=== PATIENT | female | born 1985 | race Caucasian/White ===

== ENCOUNTER 2017-10-24 21:13 | Emergency (ER) | payer MEDICAID ==
[~2017-10-24] VITALS: Ht 160 cm; Wt 83.9 kg
[~2017-10-24 21:13] MED LIST: ONDA4TAB10 PO; PANT40TA2 PO; POTA10TA10 PO; SCOP1PAT TOP; SUCR1TAB36 PO
--- OUTSIDE RECORDS SUMMARY | 2017-10-24 21:21 | XMS REPORT | Continuity of Care Document ---
Author Author [facility] Organization [facility] Address Unknown Phone Unavailable Allergies Active Description Code Type Severity Reaction Onset Reported/Identified Relationship to Patient Clinical Status Yes No Known Drug Allergies [id number] Drug Allergy Unknown N/A 02/12/2016 Medications There is no data. Problems Date Dx Coded Attending Type Code Diagnosis Diagnosed By 02/08/2016 YOON MAHER DO Ot E87.6 HYPOKALEMIA 02/08/2016 TRAE MAHER DOI Ot F17.210 NICOTINE DEPENDENCE, CIGARETTES, UNCOMPL 02/08/2016 GUNNAR MOREAU YOON Ot R10.11 RIGHT UPPER QUADRANT PAIN 02/08/2016 MAHERTRAE PHELPS DOI Ot R11.2 NAUSEA WITH VOMITING, UNSPECIFIED 02/08/2016 MAHERMATTIE MOREAU YOON Ot E87.6 02/08/2016 MAHER DO, YOON Ot F17.210 02/08/2016 MAHERMATTIE MOREAU YOON Ot R10.11 02/08/2016 MAHERMATTIE MOREAU YOON Ot R11.2 02/09/2016 Ot F12.10 CANNABIS ABUSE, UNCOMPLICATED 02/09/2016 Ot F17.210 NICOTINE DEPENDENCE, CIGARETTES, UNCOMPL 02/09/2016 Ot R10.84 GENERALIZED ABDOMINAL PAIN 02/09/2016 Ot R11.2 NAUSEA WITH VOMITING, UNSPECIFIED 02/11/2016 Ot F12.10 02/11/2016 Ot F17.210 02/11/2016 Ot R10.84 02/11/2016 Ot R11.2 02/11/2016 CAMRYN CORONA MD Ot Z01.818 02/12/2016 CAMRYN CORONA MD Ot K21.0 GASTRO-ESOPHAGEAL REFLUX DISEASE WITH ES 02/12/2016 CAMRYN CORONA MD Ot K29.70 GASTRITIS, UNSPECIFIED, WITHOUT BLEEDING 02/12/2016 CAMRYN CORONA MD Ot K57.90 DVRTCLOS OF INTEST, PART UNSP, W/O PERF 02/12/2016 CAMRYN CORONA MD Ot K64.1 SECOND DEGREE HEMORRHOIDS 02/12/2016 CJ LAWRENCE, CAMRYN Ot Z80.0 FAMILY HISTORY OF MALIGNANT NEOPLASM OF 02/13/2016 CJ LAWRENCE, CAMRYN Ot K21.0 02/13/2016 CJ LAWRENCE, CAMRYN Ot K29.70 02/13/2016 CJ LAWRENCE, MACAAKI Ot K57.90 02/13/2016 CJ LAWRENCE, CAMRYN Ot K64.1 02/13/2016 CJ LAWRENCE, CAMRYN Ot Z80.0 02/18/2016 CJ LAWRENCE, CAMRYN Ot K21.0 02/18/2016 CJ LAWRENCE, MACAAKI Ot K29.70 02/18/2016 CJ LAWRENCE, CARENKI Ot K57.90 02/18/2016 CJ LAWRENCE, CAMRYN Ot K64.1 02/18/2016 CJ LAWRENCE, CAMRYN Ot Z80.0 02/26/2016 CJ LAWRENCE, CAMRYN Ot K21.0 GASTRO-ESOPHAGEAL REFLUX DISEASE WITH ES 02/26/2016 CJ LAWRENCE, CAMRYN Ot K29.70 GASTRITIS, UNSPECIFIED, WITHOUT BLEEDING 02/26/2016 CJ LAWRENCE, CAMRYN Ot K57.90 DVRTCLOS OF INTEST, PART UNSP, W/O PERF 02/26/2016 CAMRYN CORONA MD Ot K64.1 SECOND DEGREE HEMORRHOIDS 02/26/2016 CJ LAWRENCE, CAMRYN Ot Z80.0 FAMILY HISTORY OF MALIGNANT NEOPLASM OF Procedures There is no data. Results There is no data. Encounters ACCT No. Visit Date/Time Discharge Status Pt. Type Provider Facility Loc./Unit Complaint [id number] 02/12/2016 10:27:00 02/12/2016 15:30:00 DIS Outpatient CAMRYN CORONA MD [facility] [id number] 02/11/2016 11:17:00 02/11/2016 13:54:00 DIS Outpatient CAMRYN CORONA MD [facility] PREOP [id number] 02/09/2016 11:09:00 Document Registration [id number] 02/07/2016 16:24:00 ACT Inpatient YOON MAHER DO [facility] 4TH
[2017-10-24] MEDS ORDERED: NS IV 1000 ML 1,000 ML IV ONE (21:33)
--- NOTE | 2017-10-24 21:34 | ED GU-Female ---
General Stated Complaint: VAG PAIN W BLEEDING Source: patient History of Present Illness Time seen by provider: 21:23 Initial Comments PT ARRIVES VIA POV (WANTS WHEELCHAIR TO GO BACK TO ROOM) BUT AMBULATED INTO ER ON HER OWN WITHOUT DIFFICULTY PT HAS HAD IUD IN PLACE X 1 YEAR PT HAS HAD LIGHT SPOTTING EVERY MONTH WHILE SHE HAS HAD THE IUD--SPOTTED 09/22- 09/27, AND THIS HAS BEEN THE PATTERN EVERY MONTH PT STATES HER IUD FELL OUT ON Wednesday10/22/17 PT HAS HAD HEAVY BLEEDING YESTERDAY AND IS WORSE TODAY--STATES SHE HAS GONE THROUGH 25-30 TAMPONS TODAY--HAS TO CHANGE TAMPON EVERY 15 MINUTES C/O LOWER ABDOMINAL CRAMPING WELL TOOK HYDROCODONE AT 1830 WITHOUT RELIEF C/O SOME DIZZINESS NO HISTORY OF SIMILAR PT STATES LATER THAT SHE HAS AN APPOINTMENT ON Wednesday10/27/[address] YOUNG TO GET IMPLANON/NEXPLANON PLACED Allergies and Home Medications Allergies Coded Allergies: No Known Drug Allergies (Verified , 02/12/16) Home Medications Pantoprazole Sodium 40 Mg Tablet.dr, 40 MG PO DAILY, #90 Prescribed by: CAMRYN CORONA on 02/12/16 1432 Potassium Chloride 10 Meq Tablet.er, 10 MEQ PO BID, #30 Prescribed by: YOON MAHER on 02/08/16 0931 Sucralfate 1 Gm Tablet, 1 GM PO QID, #120 Prescribed by: CAMRYN CORONA on 02/12/16 1432 Constitutional: dizziness Respiratory: no symptoms reported Cardiovascular: no symptoms reported Gastrointestinal: see HPI, abdominal pain, No nausea, No vomiting Musculoskeletal: no symptoms reported Skin: no symptoms reported Psychiatric/Neurological: No Symptoms Reported Endocrine: No Symptoms Reported Hematologic/Lymphatic: See HPI Past Jldvlcv-Ajrtxo-Cthfto Hx Patient Social History Alcohol Use: Denies Use Recreational Drug Use: No Smoking Status: Current Everyday Smoker (1/2-1 PPD) Recent Foreign Travel: No Contact w/Someone Who Travel: No Immunizations Up To Date Tetanus Booster (TDap): Unknown PED Vaccines UTD: Yes Surgeries History of Surgeries: Yes Surgeries: Section, Gallbladder Respiratory History of Respiratory Disorde: No Cardiovascular History of Cardiac Disorders: No Neurological History of Neurological Disord: No 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 System : No Hx 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 Disorders: No 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 History of 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 Disor: No Gastrointestinal History of Gastrointestinal Di: No Musculoskeletal History of Musculoskeletal Dis: No Endocrine History of Endocrine Disorders: No HEENT History of HEENT Disorders: No Loss of Vision: Denies Hearing Impairment: Denies Cancer History of Cancer: No Psychosocial History of Psychiatric Problem: Yes Behavioral Health Disorders: Anxiety, Depression Integumentary History of Skin or Integumenta: No Blood Transfusions History of Blood Disorders: No Family Medical History Significant Family History: Heart Disease, Cancer, Diabetes Family Medial History: Arthritis 19 MOTHER GRANDMA-MATERAL Colon cancer GRANDP-MATERANL Completed stroke 19 FATHER Congenital disease 19 FATHER Congenital heart disease 19 FATHER Diabetes mellitus 19 FATHER GRANDMA-MATERAL Hypercholesterolemia Myocardial infarction 19 FATHER GRANDP-MATERANL Physical Exam Vital Signs Vital Sign - Last 12Hours 10/24/17 21:20 Temp 98.2 Pulse 87 Resp 18 B/P (MAP) 132/106 (115) Pulse Ox 100 O2 Delivery Room Air Capillary Refill : General Appearance: WD/WN, no apparent distress HEENT: No pale conjunctivae (R), No pale conjunctivae (L) Neck: normal inspection Cardiovascular: regular rate, rhythm, no murmur Respiratory: normal breath sounds Gastrointestinal: normal bowel sounds, soft, no organomegaly, no pulsatile mass , tenderness (MILD SUPRAPUBIC TENDERNESS) Pelvic: normal external exam, normal adnexa, no cerv. motion tender, no masses , vaginal bleeding (SMALL AMOUNT OF BLOOD IN CANAL WITHOUT ANY CLOTS. CERVIX APPEARS NORMAL. 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, no motor/sensory deficits, alert, normal mood/affect, oriented x 3 Skin: normal color, warm/dry Progress/Results/Core Measures Suspected Sepsis SIRS Temperature: Pulse: Respiratory Rate: Laboratory Tests 10/24/17 21:30: White Blood Count 13.4H Blood Pressure / Mean: Laboratory Tests 10/24/17 21:30: Creatinine 0.81, INR Comment 1.0, Platelet Count 339 Results/Orders Lab Results Laboratory Tests Test 10/24/17 21:30 Range/Units White Blood Count 13.4 H 4.3-11.0 10^3/uL Red Blood Count 4.52 4.35-5.85 10^6/uL Hemoglobin 13.8 11.5-16.0 G/DL Hematocrit 41 35-52 % Mean Corpuscular Volume 91 80-99 FL Mean Corpuscular Hemoglobin 31 25-34 PG Mean Corpuscular Hemoglobin Concent 33 32-36 G/DL Red Cell Distribution Width 14.1 10.0-14.5 % Platelet Count 339 130-400 10^3/uL Mean Platelet Volume 10.7 H 7.4-10.4 FL Neutrophils (%) (Auto) 59 42-75 % Lymphocytes (%) (Auto) 30 12-44 % Monocytes (%) (Auto) 8 0-12 % Eosinophils (%) (Auto) 3 0-10 % Basophils (%) (Auto) 1 0-10 % Neutrophils # (Auto) 8.0 H 1.8-7.8 X 10^3 Lymphocytes # (Auto) 4.0 1.0-4.0 X 10^3 Monocytes # (Auto) 1.0 0.0-1.0 X 10^3 Eosinophils # (Auto) 0.3 0.0-0.3 10^3/uL Basophils # (Auto) 0.1 0.0-0.1 10^3/uL Prothrombin Time 12.9 12.2-14.7 SEC INR Comment 1.0 0.8-1.4 Activated Partial Thromboplast Time 28 24-35 SEC Sodium Level 139 135-145 MMOL/L Potassium Level 3.5 L 3.6-5.0 MMOL/L Chloride Level 106 98-107 MMOL/L Carbon Dioxide Level 23 21-32 MMOL/L Anion Gap 10 5-14 MMOL/L Blood Urea Nitrogen 8 7-18 MG/DL Creatinine 0.81 0.60-1.30 MG/DL Estimat Glomerular Filtration Rate > 60 BUN/Creatinine Ratio 10 Glucose Level 102 70-105 MG/DL Calcium Level 9.1 8.5-10.1 MG/DL Serum Test, Qualitative NEGATIVE NEGATIVE My Orders Orders - CAROL PLASENCIA K DO Saline Lock/Iv-Start (10/24/17 21:29) Basic Metabolic Panel (10/24/17 21:29) Cbc With Automated Diff (10/24/17 21:29) Hcg,Qualitative Serum (10/24/17 21:29) Protime With Inr (10/24/17 21:29) Partial Thromboplastin Time (10/24/17 21:29) Saline Lock/Iv-Start (10/24/17 21:33) Ns Iv 1000 Ml (Sodium Chloride 0.9%) (10/24/17 21:33) Orthostatic Vital Signs (Adult (10/24/17 21:33) Ketorolac Injection (Toradol Injection) (10/24/17 22:15) Ns Iv 1000 Ml (Sodium Chloride 0.9%) (10/24/17 21:49) Ketorolac Injection (Toradol Injection) (10/24/17 22:13) Medications Given in ED Current Medications Medications Dose Ordered Sig/Marnie Route Start Time Stop Time Status Last Admin Dose Admin Ketorolac Tromethamine 30 mg ONCE ONCE IVP 10/24/17 22:15 10/24/17 22:35 DC 10/24/17 22:16 30 MG Sodium Chloride 1,000 ml @ 0 mls/hr Q0M ONCE IV 10/24/17 21:33 10/24/17 22:35 DC 10/24/17 21:53 0 MLS/HR Vital Signs/I&O Vital Sign - Last 12Hours 10/24/17 10/24/17 10/24/17 21:20 21:56 22:35 Temp 98.2 Pulse 87 91 84 92 96 Resp 18 18 B/P (MAP) 132/106 (115) 111/84 (93) 125/89 (101) 137/96 (110) Pulse Ox 100 99 O2 Delivery Room Air Room Air Capillary Refill : Progress Note : Progress Note BLEEDING AND CRAMPING HAS SLOWED DOWN ALOT, PER PT PT USED 1 TAMPON DURING ER STAY Departure Impression Impression: Primary Impression: MENORRHAGIA DUE TO REMOVAL OF IUD Disposition: 01 HOME, SELF-CARE Condition: Stable Departure-Patient Inst. Referrals: TYRA WALKER MD (PCP) Primary Care Physician Patient Instructions: Heavy Periods (DC) Add. Discharge Instructions: LOTS OF FLUIDS TAKE YOUR HOME PAIN MEDICATIONS NEEDED KEEP YOUR APPOINTMENT WITH DR. YOUNG ON WEDNESDAY, OR SOONER IF SYMPTOMS WORSEN CAROL PLASENCIA DO Oct 24, 2017 21:34
[2017-10-24 21:40] LABS: BASOPHILS # (AUTO) 0.1 10^3/uL (0.0-0.1); BASOPHILS % (AUTO) 1 % (0-10); EOSINOPHILS # (AUTO) 0.3 10^3/uL (0.0-0.3); EOSINOPHILS % (AUTO) 3 % (0-10); LYMPHOCYTES % (AUTO) 30 % (12-44); MEAN CORPUSCULAR HEMOGLOBIN 31 PG (25-34); MEAN CORPUSCULAR HGB CONC 33 G/DL (32-36); MEAN CORPUSCULAR VOLUME 91 FL (80-99); MEAN PLATELET VOLUME 10.7 FL (7.4-10.4); MONOCYTES % (AUTO) 8 % (0-12); NEUTROPHILS % (AUTO) 59 % (42-75); PLATELET COUNT 339 10^3/uL (130-400); RED BLOOD COUNT 4.52 10^6/uL (4.35-5.85); RED CELL DISTRIBUTION WIDTH 14.1 % (10.0-14.5); WHITE BLOOD COUNT 13.4 10^3/uL (4.3-11.0)
[2017-10-24] MEDS ORDERED: NS IV 1000 ML 1,000 ML ONE (21:49)
[2017-10-24 21:54] LABS: PROTHROMBIN TIME PATIENT 12.9 SEC (12.2-14.7)
[2017-10-24 21:56] VITALS: BP_SYST 111; BP_SYST 125; BP_SYST 137; BP_DIAS 84; BP_DIAS 89; BP_DIAS 96
[2017-10-24 22:04] LABS: ANION GAP 10 MMOL/L (5-14); BLOOD UREA NITROGEN 8 MG/DL (7-18); BUN/CREATININE RATIO 10; CALCIUM 9.1 MG/DL (8.5-10.1); CARBON DIOXIDE 23 MMOL/L (21-32); CHLORIDE 106 MMOL/L (98-107); CREATININE SERUM 0.81 MG/DL (0.60-1.30); GFR ESTIMATED > 60; GLUCOSE 102 MG/DL (70-105); POTASSIUM 3.5 MMOL/L (3.6-5.0); SODIUM 139 MMOL/L (135-145)
[2017-10-24] MEDS ORDERED: KETOROLAC 30 MG/ML VIAL ONE (22:13)
[2017-10-24] MEDS ORDERED: KETOROLAC 30 MG/ML VIAL IVP ONE (22:15)
[2017-10-24 22:35] VITALS: BP 137/80
== END 2017-10-24 22:35 | disposition home or self-care (01) ==
LOC: EDUNIT# 21:13 → ER 21:17
DX: N99.821 Postprocedural hemorrhage of a genitourinary system organ or structure following other procedure (principal); F41.9 Anxiety disorder, unspecified; F32.9 Major depressive disorder, single episode, unspecified; F17.210 Nicotine dependence, cigarettes, uncomplicated; Z87.59 Personal history of other complications of pregnancy, childbirth and the puerperium; Z82.49 Family history of ischemic heart disease and other diseases of the circulatory system; Z80.9 Family history of malignant neoplasm, unspecified
CPT/HCPCS: 36415; 80048; 84703; 85025; 85610; 85730

== ENCOUNTER 2018-08-14 21:07 | Emergency (ER) | payer SELFPAY ==
[~2018-08-14] VITALS: Ht 160 cm; Wt 86.2 kg
[~2018-08-14 21:07] MED LIST changes: -SCOP1PAT TOP; +SCOP1PAT11 TOP
--- OUTSIDE RECORDS SUMMARY | 2018-08-14 21:12 | XMS REPORT | Continuity of Care Document ---
Author Author [facility] Organization [facility] Address Unknown Phone Unavailable Allergies Active Description Code Type Severity Reaction Onset Reported/Identified Relationship to Patient Clinical Status Yes No Known Drug Allergies [id number] Drug Allergy Unknown N/A 02/12/2016 Medications There is no data. Problems Date Dx Coded Attending Type Code Diagnosis Diagnosed By 02/08/2016 YOON MAHER DO Ot E87.6 HYPOKALEMIA 02/08/2016 TRAE MAHER DOI Ot F17.210 NICOTINE DEPENDENCE, CIGARETTES, UNCOMPL 02/08/2016 TRAE MAHER DOI Ot R10.11 RIGHT UPPER QUADRANT PAIN 02/08/2016 TRAE MAHER DOI Ot R11.2 NAUSEA WITH VOMITING, UNSPECIFIED 02/08/2016 MAHERTRAE PHELPS DOI Ot E87.6 02/08/2016 MAHERMATTIE MOREAU YOON Ot F17.210 02/08/2016 MAHERMATTIE MOREAU YOON Ot R10.11 02/08/2016 GUNNAR MOREAU YOON Ot R11.2 02/09/2016 Ot F12.10 CANNABIS ABUSE, UNCOMPLICATED 02/09/2016 Ot F17.210 NICOTINE DEPENDENCE, CIGARETTES, UNCOMPL 02/09/2016 Ot R10.84 GENERALIZED ABDOMINAL PAIN 02/09/2016 Ot R11.2 NAUSEA WITH VOMITING, UNSPECIFIED 02/11/2016 Ot F12.10 02/11/2016 Ot F17.210 02/11/2016 Ot R10.84 02/11/2016 Ot R11.2 02/11/2016 CAMRYN CORONA MD Ot Z01.818 ENCOUNTER FOR OTHER PREPROCEDURAL EXAMIN 02/12/2016 CAMRYN CORONA MD Ot K21.0 GASTRO-ESOPHAGEAL REFLUX DISEASE WITH ES 02/12/2016 CAMRYN CORONA MD Ot K29.70 GASTRITIS, UNSPECIFIED, WITHOUT BLEEDING 02/12/2016 CAMRYN CORONA MD Ot K57.90 DVRTCLOS OF INTEST, PART UNSP, W/O PERF 02/12/2016 CJ LAWRENCE, CAMRYN Ot K64.1 SECOND DEGREE HEMORRHOIDS 02/12/2016 CJ LAWRENCE, CAMRYN Schulz Z80.0 FAMILY HISTORY OF MALIGNANT NEOPLASM OF 02/13/2016 CJ LAWRENCE, CAMRYN Ot K21.0 02/13/2016 CJ LAWRENCE, CAMRYN Ot K29.70 02/13/2016 CJ LAWRENCE, CAMRYN Ot K57.90 02/13/2016 CJ LAWRENCE, CAMRYN Ot K64.1 02/13/2016 CJ LAWRENCE, CAMRYN Ot Z80.0 02/18/2016 CJ LAWRENCE, CAMRYN Ot K21.0 02/18/2016 CJ LAWRENCE, CAMRYN Ot K29.70 02/18/2016 CJ LAWRENCE, CAMRYN Ot K57.90 02/18/2016 CJ LAWRENCE, CAMRYN Ot K64.1 02/18/2016 CJ LAWRENCE, CAMRNY Ot Z80.0 02/26/2016 CJ LAWRENCE, CAMRYN Ot K21.0 GASTRO-ESOPHAGEAL REFLUX DISEASE WITH ES 02/26/2016 CJ LAWERNCE, CAMRYN Ot K29.70 GASTRITIS, UNSPECIFIED, WITHOUT BLEEDING 02/26/2016 CJ LAWRENCE, CAMRYN Ot K57.90 DVRTCLOS OF INTEST, PART UNSP, W/O PERF 02/26/2016 CJ LAWRENCE, CAMRYN Schulz K64.1 SECOND DEGREE HEMORRHOIDS 02/26/2016 CJ LAWRENCE, CAMRYN Ot Z80.0 FAMILY HISTORY OF MALIGNANT NEOPLASM OF 10/24/2017 CAROL PLASENCIA DO Ot F17.210 NICOTINE DEPENDENCE, CIGARETTES, UNCOMPL 10/24/2017 CAROL PLASENCIA DO Ot F32.9 MAJOR DEPRESSIVE DISORDER, SINGLE EPISOD 10/24/2017 CAROL PLASENCIA DO, Ot F41.9 ANXIETY DISORDER, UNSPECIFIED 10/24/2017 CAROL PLASENCIA DO Ot N93.8 OTHER SPECIFIED ABNORMAL UTERINE AND VAG 10/24/2017 CAROL PLASENCIA DO Ot N99.821 POSTPROC HEMOR OF A SYS ORG FOLLOWING 10/24/2017 CAROL PLASENCIA DO, Ot Z80.9 FAMILY HISTORY OF MALIGNANT NEOPLASM, UN 10/24/2017 CAROL PLASENCIA DO, Ot Z82.49 FAMILY HX OF ISCHEM HEART DIS AND OTH DI 10/24/2017 LUIS ANGEL MOREAU CAROL Weller Ot Z87.59 PERSONAL HISTORY OF COMP OF PREG, CHLDBR 10/30/2017 LUIS ANGEL MOREAU CAROL Janee Ot F17.210 NICOTINE DEPENDENCE, CIGARETTES, UNCOMPL 10/30/2017 LUIS ANGEL MOREAU CAROL Janee Ot F32.9 MAJOR DEPRESSIVE DISORDER, SINGLE EPISOD 10/30/2017 LUIS ANGEL MOREAU CAROL Janee Ot F41.9 ANXIETY DISORDER, UNSPECIFIED 10/30/2017 LUIS ANGEL MOREAU CAROL Janee Ot N93.8 OTHER SPECIFIED ABNORMAL UTERINE AND VAG 10/30/2017 LUIS ANGEL MOREAU CAROL Janee Ot N99.821 POSTPROC HEMOR OF A SYS ORG FOLLOWING 10/30/2017 LUIS ANGEL CAROL Janee Ot Z80.9 FAMILY HISTORY OF MALIGNANT NEOPLASM, UN 10/30/2017 LUIS ANGEL MOREAU CAROL Janee Ot Z82.49 FAMILY HX OF ISCHEM HEART DIS AND OTH DI 10/30/2017 LUIS ANGEL MOREAU CAROL Janee Ot Z87.59 PERSONAL HISTORY OF COMP OF PREG, CHLDBR Procedures There is no data. Results Test Result Range Complete blood count (CBC) with automated white blood cell (WBC) differential - 10/24/17 21:30 Blood leukocytes automated count (number/volume) 13.4 10*3/uL 4.3-11.0 Blood erythrocytes automated count (number/volume) 4.52 10*6/uL 4.35-5.85 Venous blood hemoglobin measurement (mass/volume) 13.8 g/dL 11.5-16.0 Blood hematocrit (volume fraction) 41 % 35-52 Automated erythrocyte mean corpuscular volume 91 [foz_us] 80-99 Automated erythrocyte mean corpuscular hemoglobin (mass per erythrocyte) 31 pg 25-34 Automated erythrocyte mean corpuscular hemoglobin concentration measurement ( mass/volume) 33 g/dL 32-36 Automated erythrocyte distribution width ratio 14.1 % 10.0-14.5 Automated blood platelet count (count/volume) 339 10*3/uL 130-400 Automated blood platelet mean volume measurement 10.7 [foz_us] 7.4-10.4 Automated blood neutrophils/100 leukocytes 59 % 42-75 Automated blood lymphocytes/100 leukocytes 30 % 12-44 Blood monocytes/100 leukocytes 8 % 0-12 Automated blood eosinophils/100 leukocytes 3 % 0-10 Automated blood basophils/100 leukocytes 1 % 0-10 Blood neutrophils automated count (number/volume) 8.0 10*3 1.8-7.8 Blood lymphocytes automated count (number/volume) 4.0 10*3 1.0-4.0 Blood monocytes automated count (number/volume) 1.0 10*3 0.0-1.0 Automated eosinophil count 0.3 10*3/uL 0.0-0.3 Automated blood basophil count (count/volume) 0.1 10*3/uL 0.0-0.1 PT panel in platelet poor plasma by coagulation assay - 10/24/17 21:30 Prothrombin time (PT) in platelet poor plasma by coagulation assay 12.9 s 12.2-14.7 INR in platelet poor plasma or blood by coagulation assay 1.0 0.8-1.4 Activated partial thromboplastin time (aPTT) in platelet poor plasma bycoagulation assay - 10/24/17 21:30 Activated partial thromboplastin time (aPTT) in platelet poor plasma bycoagulation assay 28 s 24-35 Serum or plasma choriogonadotropin ( test) detection - 10/24/17 21:30 Serum or plasma choriogonadotropin ( test) detection NEGATIVE NEGATIVE Whole blood basic metabolic panel - 10/24/17 21:30 Serum or plasma sodium measurement (moles/volume) 139 mmol/L 135-145 Serum or plasma potassium measurement (moles/volume) 3.5 mmol/L 3.6-5.0 Serum or plasma chloride measurement (moles/volume) 106 mmol/L 98-107 Carbon dioxide 23 mmol/L 21-32 Serum or plasma anion gap determination (moles/volume) 10 mmol/L 5-14 Serum or plasma urea nitrogen measurement (mass/volume) 8 mg/dL 7-18 Serum or plasma creatinine measurement (mass/volume) 0.81 mg/dL 0.60-1.30 Serum or plasma urea nitrogen/creatinine mass ratio 10 NRG Serum or plasma creatinine measurement with calculation of estimated glomerular filtration rate > NRG Serum or plasma glucose measurement (mass/volume) 102 mg/dL 70-105 Serum or plasma calcium measurement (mass/volume) 9.1 mg/dL 8.5-10.1 Encounters ACCT No. Visit Date/Time Discharge Status Pt. Type Provider Facility Loc./Unit Complaint [id number] 10/24/2017 21:17:00 10/24/2017 22:35:00 DIS Emergency LUIS ANGELMichael MOREAU CAROL Janee [facility] ER VAG PAIN W BLEEDING [id number] 02/12/2016 10:27:00 02/12/2016 15:30:00 DIS Outpatient CAMRYN CORONA MD [facility] SDC ABD PAIN,N/V [id number] 02/11/2016 11:17:00 02/11/2016 13:54:00 DIS Outpatient CAMRYN CORONA MD [facility] PREOP ABD PAIN,N/V [id number] 08/14/2018 21:08:00 ACT Emergency ELVIRA BENITEZ MD [facility] ER CP [id number] 02/09/2016 11:09:00 Document Registration [id number] 02/07/2016 16:24:00 ACT Inpatient YOON MAHER DO [facility] 4TH HYPOLKALEMIA,NAUSEA,VOMITING,ABD PAIN
[2018-08-14] MEDS ORDERED: ASPIRIN 81 MG CHEW (CHILDREN'S ASA) PO ONE (21:45)
[2018-08-14] MEDS: NITROGLYCERIN 0.4 MG SL TABS BTL 25'S SL PRN ×2 (21:47→22:01)
[2018-08-14 21:49] LABS: BASOPHILS # (AUTO) 0.1 10^3/uL (0.0-0.1); BASOPHILS % (AUTO) 1 % (0-10); EOSINOPHILS # (AUTO) 0.3 10^3/uL (0.0-0.3); EOSINOPHILS % (AUTO) 3 % (0-10); HEMATOCRIT 42 % (35-52); HEMOGLOBIN 14.6 G/DL (11.5-16.0); LYMPHOCYTES # (AUTO) 3.3 X 10^3 (1.0-4.0); LYMPHOCYTES % (AUTO) 34 % (12-44); MEAN CORPUSCULAR HEMOGLOBIN 31 PG (25-34); MEAN CORPUSCULAR HGB CONC 35 G/DL (32-36); MEAN CORPUSCULAR VOLUME 89 FL (80-99); MEAN PLATELET VOLUME 10.4 FL (7.4-10.4); MONOCYTES # (AUTO) 0.8 X 10^3 (0.0-1.0); MONOCYTES % (AUTO) 8 % (0-12); NEUTROPHILS # (AUTO) 5.1 X 10^3 (1.8-7.8); NEUTROPHILS % (AUTO) 54 % (42-75); PLATELET COUNT 386 10^3/uL (130-400); RED BLOOD COUNT 4.73 10^6/uL (4.35-5.85); RED CELL DISTRIBUTION WIDTH 13.7 % (10.0-14.5); WHITE BLOOD COUNT 9.5 10^3/uL (4.3-11.0)
[2018-08-14 22:02] LABS: INR 0.9 (0.8-1.4); PROTHROMBIN TIME PATIENT 12.5 SEC (12.2-14.7)
[2018-08-14 22:10] LABS: ALANINE AMINOTRANSFERASE 27 U/L (0-55); ALBUMIN 4.2 GM/DL (3.2-4.5); ALKALINE PHOSPHATASE 65 U/L (40-136); BILIRUBIN,TOTAL 0.3 MG/DL (0.1-1.0); BUN/CREATININE RATIO 16; CALCIUM 9.7 MG/DL (8.5-10.1); CARBON DIOXIDE 22 MMOL/L (21-32); CHLORIDE 107 MMOL/L (98-107); CREATININE SERUM 0.77 MG/DL (0.60-1.30); GFR ESTIMATED > 60; GLUCOSE 89 MG/DL (70-105); MAGNESIUM 3.1 MG/DL (1.8-2.4); POTASSIUM 3.6 MMOL/L (3.6-5.0); SODIUM 141 MMOL/L (135-145)
[2018-08-14 22:16] LABS: MYOGLOBIN SERUM 36.5 NG/ML (10.0-92.0)
--- NOTE | 2018-08-14 22:21 | ED Chest Pain ---
General Chief Complaint: Chest Pain Stated Complaint: CP Nursing Triage Note: Pt ambulated to rm 6 w/o difficulty. Pt c/o chest pain that began while cooking supper this evening. Pt c/o shaking, dizziness, blurry vision, and pain radiating down L arm. Pt c/o tingling in L fingers. Nursing Sepsis Screen: No Definite Risk Source: patient Exam Limitations: no limitations History of Present Illness Date Seen by Provider: Aug 14, 2018 Time Seen by Provider: 21:29 Initial Comments This 32-year-old young woman presents to the emergency room with complaints of chest central chest pain radiating to her back between the shoulder blades. Pain is accompanied by tingling of the fingers on the left, shakiness, dizziness , and blurred vision, all of which have now improved. She cannot identify any exacerbating or alleviating factors. She denies cough or fever. She has had no nausea or vomiting. She does smoke but denies any alcohol or drug use. She denies as she has the next plan on implant. She has significant family history of cardiac disease with multiple family members having problems in their 40s and 50s. Symptoms started early this evening while she was making supper. Allergies and Home Medications Allergies Coded Allergies: No Known Drug Allergies (Verified , 02/12/16) Home Medications Omeprazole 20 Mg Capsule.dr, 20 MG PO BID Prescribed by: ELVIRA NICOLE on 08/15/18 0031 Pantoprazole Sodium 40 Mg Tablet.dr, 40 MG PO DAILY Prescribed by: CAMRYN CORONA on 02/12/16 1432 Potassium Chloride 10 Meq Tablet.er, 10 MEQ PO BID Prescribed by: YOON MAHER on 02/08/16 0931 Sucralfate 1 Gm Tablet, 1 GM PO QID Prescribed by: CAMRYN CORONA on 02/12/16 1432 Patient Home Medication List Home Medication List Reviewed: Yes Review of Systems Review of Systems Constitutional: no symptoms reported EENTM: No Symptoms Reported Respiratory: No Symptoms Reported Cardiovascular: See HPI Gastrointestinal: No Symptoms Reported 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: No Symptoms Reported Musculoskeletal: no symptoms reported Skin: no symptoms reported Psychiatric/Neurological: See HPI Endocrine: No Symptoms Reported Hematologic/Lymphatic: No Symptoms Reported Past Aeypzzb-Hpcavd-Ztlxjy Hx Past Med/Social Hx: Reviewed and Corrections made Patient Social History Alcohol Use: Denies Use Recreational Drug Use: No Smoking Status: Current Everyday Smoker Type Used: Cigarettes 2nd Hand Smoke Exposure: No Recent Foreign Travel: No Contact w/Someone Who Travel: No Recent Infectious Disease Expo: No Recent Hopitalizations: No Physical Abuse: No Sexual Abuse: No Immunizations Up To Date Tetanus Booster (TDap): Unknown PED Vaccines UTD: Yes Seasonal Allergies Seasonal Allergies: No Past Medical History Surgeries: Yes (Lipoma removed from abdomen) Section, Gallbladder Respiratory: No Currently Using CPAP: No Currently Using BIPAP: No Cardiac: No Neurological: No : No (Nexplanon implant) 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 Disorders: No 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: No Gastrointestinal: No Diverticulosis Musculoskeletal: No Endocrine: No HEENT: No Loss of Vision: Denies Hearing Impairment: Denies Cancer: No Psychosocial: Yes Anxiety, Depression Integumentary: No Blood Disorders: No Family Medical History Reviewed Nursing Family Hx Arthritis 19 MOTHER GRANDMA-MATERAL Colon cancer GRANDP-MATERANL Completed stroke 19 FATHER Congenital disease 19 FATHER Congenital heart disease 19 FATHER Diabetes mellitus 19 FATHER GRANDMA-MATERAL Hypercholesterolemia Myocardial infarction 19 FATHER GRANDP-MATERANL Heart Disease, Cancer, Diabetes Physical Exam Vital Signs Vital Signs - First Documented 08/14/18 21:16 Temp 99.0 Pulse 91 Resp 17 B/P (MAP) 128/84 (99) Pulse Ox 97 O2 Delivery Room Air Capillary Refill : Less Than 3 Seconds Height, Weight, BMI Height: 5'3.00" Weight: 190lbs. 6.4oz. 86.053526il; 30.2 BMI Method:Stated General Appearance: WD/WN, Mild Distress HEENT: PERRL/EOMI, Normal ENT Inspection, Pharynx Normal Neck: Normal Inspection Respiratory: Lungs Clear, Normal Breath Sounds, No Accessory Muscle Use, No Respiratory Distress Cardiovascular: Regular Rate, Rhythm, No Edema, No Murmur, Normal Peripheral Pulses Gastrointestinal: Non Tender, Soft Extremity: Normal Capillary Refill, Normal Inspection, Non Tender, No Calf Tenderness, No Pedal Edema, Other (Negative Teodora) Neurologic/Psychiatric: Alert, Oriented x3, No Motor/Sensory Deficits, Normal Mood/Affect, painter II-XII Norm as Tested Skin: Normal Color, Warm/Dry Progress/Results/Core Measures Results/Orders Lab Results Laboratory Tests Test 08/14/18 21:40 Range/Units White Blood Count 9.5 4.3-11.0 10^3/uL Red Blood Count 4.73 4.35-5.85 10^6/uL Hemoglobin 14.6 11.5-16.0 G/DL Hematocrit 42 35-52 % Mean Corpuscular Volume 89 80-99 FL Mean Corpuscular Hemoglobin 31 25-34 PG Mean Corpuscular Hemoglobin Concent 35 32-36 G/DL Red Cell Distribution Width 13.7 10.0-14.5 % Platelet Count 386 130-400 10^3/uL Mean Platelet Volume 10.4 7.4-10.4 FL Neutrophils (%) (Auto) 54 42-75 % Lymphocytes (%) (Auto) 34 12-44 % Monocytes (%) (Auto) 8 0-12 % Eosinophils (%) (Auto) 3 0-10 % Basophils (%) (Auto) 1 0-10 % Neutrophils # (Auto) 5.1 1.8-7.8 X 10^3 Lymphocytes # (Auto) 3.3 1.0-4.0 X 10^3 Monocytes # (Auto) 0.8 0.0-1.0 X 10^3 Eosinophils # (Auto) 0.3 0.0-0.3 10^3/uL Basophils # (Auto) 0.1 0.0-0.1 10^3/uL Prothrombin Time 12.5 12.2-14.7 SEC INR Comment 0.9 0.8-1.4 Activated Partial Thromboplast Time 29 24-35 SEC D-Dimer 0.46 0.00-0.49 UG/ML Sodium Level 141 135-145 MMOL/L Potassium Level 3.6 3.6-5.0 MMOL/L Chloride Level 107 98-107 MMOL/L Carbon Dioxide Level 22 21-32 MMOL/L Anion Gap 12 5-14 MMOL/L Blood Urea Nitrogen 12 7-18 MG/DL Creatinine 0.77 0.60-1.30 MG/DL Estimat Glomerular Filtration Rate > 60 BUN/Creatinine Ratio 16 Glucose Level 89 70-105 MG/DL Calcium Level 9.7 8.5-10.1 MG/DL Corrected Calcium 9.5 8.5-10.1 MG/DL Magnesium Level 3.1 H 1.8-2.4 MG/DL Total Bilirubin 0.3 0.1-1.0 MG/DL Aspartate Amino Transf (AST/SGOT) 16 5-34 U/L Alanine Aminotransferase (ALT/SGPT) 27 0-55 U/L Alkaline Phosphatase 65 40-136 U/L Myoglobin 36.5 10.0-92.0 NG/ML Troponin I < 0.30 <0.30 NG/ML Total Protein 8.0 6.4-8.2 GM/DL Albumin 4.2 3.2-4.5 GM/DL Serum Test, Qualitative NEGATIVE NEGATIVE Micro Results Microbiology 08/14/18 Influenza Types A,B Antigen (NIKIA) - Final, Complete My Orders Orders - ELVIRA BENITEZ MD Cbc With Automated Diff (08/14/18 21:36) Magnesium (08/14/18 21:36) Ekg Tracing (08/14/18 21:36) Cardiac Profile 1 (08/14/18 21:36) Comprehensive Metabolic Panel (08/14/18 21:36) Myoglobin Serum (08/14/18 21:36) Protime With Inr (08/14/18 21:36) Partial Thromboplastin Time (08/14/18 21:36) O2 (08/14/18 21:36) Monitor-Rhythm Ecg Trace Only (08/14/18 21:36) Aspirin Chewable Tablet (Baby Aspirin Ch (08/14/18 21:45) Nitroglycerin 0.4 Mg Btl 25's (Nitrostat (08/14/18 21:45) Saline Lock/Iv-Start (08/14/18 21:36) Fibrin Degradation Products (08/14/18 21:36) Hcg,Qualitative Serum (08/14/18 21:36) Chest Pa/Lat (2 View) (08/14/18 21:36) Influenza A And B Antigens (08/14/18 22:12) Ketorolac Injection (Toradol Injection) (08/14/18 22:45) Lidocaine 2% Viscous 15 Ml (Xylocaine Vi (08/14/18 23:45) Antacid Suspension (Mylanta Suspension (08/14/18 23:45) Medications Given in ED Vital Signs/I&O 08/14/18 08/15/18 21:16 00:57 Temp 99.0 98.4 Pulse 91 73 Resp 17 18 B/P (MAP) 128/84 (99) 122/77 (92) Pulse Ox 97 100 O2 Delivery Room Air Blood Pressure Mean: 99 Progress Progress Note : Progress Note Workup was unremarkable. Pain improved somewhat with Toradol and then was completely relieved with GI cocktail. Initial ECG Impression Date: Aug 14, 2018 Initial ECG Impression Time: 21:27 Initial ECG Rate: 94 Initial ECG Rhythm: Normal Sinus Initial ECG Intervals: Normal Initial ECG Impression: Normal Comment Normal sinus rhythm with no ST elevation or depression. No abnormal intervals or axis deviation. Diagnostic Imaging Diagonstic Imaging: Xray Plain Films/CT/US/NM/MRI: chest Comments Two-view chest x-ray viewed by me. Report available. No acute abnormalities appreciated. Departure Impression Primary Impression: Atypical chest pain Disposition: HOME, SELF-CARE Condition: Improved Departure-Patient Inst. Decision time for Depature: 00:29 Referrals: TYRA WALKER MD (PCP/Family) Primary Care Physician Patient Instructions: Acid Reflux (Gastroesophageal Reflux Disease), Adult (DC) , Chest Pain (DC) Add. Discharge Instructions: The exact cause of your chest pain is unknown but it may be related to acid reflux. Take an antacid such as omeprazole twice daily for the next 2 weeks. Follow-up with your primary care provider soon as possible. Return to the ER if symptoms are worsening. All discharge instructions reviewed with patient and/or family. Voiced understanding. Scripts Omeprazole (Omeprazole) 20 Mg Capsule. 20 MG PO BID, #30 CAP Prov: ELVIRA BENITEZ MD 08/15/18 Copy Copies To 1: TYRA WALKER MD, JOSHUA T MD Aug 14, 2018 22:21
[2018-08-14] MEDS ORDERED: KETOROLAC 30 MG/ML VIAL IVP ONE (22:45)
[2018-08-14] MEDS ORDERED: LIDOCAINE 2% VISCOUS 15 ML UDC PO ONE (23:45)
[2018-08-14] MEDS ORDERED: ANTACID SUSP 30 ML UDC (MYLANTA) PO ONE (23:45)
[2018-08-15] MEDS ORDERED: OMEP20CA12 PO (00:31)
[2018-08-15 00:57] VITALS: BP 122/77
--- NOTE | 2018-08-15 06:31 | Diagnostic Imaging Report ---
INDICATION: Chest pain. TECHNIQUE: Two views of the chest COMPARISON: None. FINDINGS: The lung volumes are normal. No focal consolidation is seen. No large pleural effusion or pneumothorax is seen. The cardiomediastinal silhouette is normal in size and contour. No acute osseous abnormality is seen. IMPRESSION: No acute pulmonary abnormality seen. Dictated by: Dictated on workstation # [id number]
== END 2018-08-15 00:57 | disposition home or self-care (01) ==
LOC: EDUNIT# 21:07 → ER 21:08
DX: R07.81 Pleurodynia (principal); F41.9 Anxiety disorder, unspecified; F32.9 Major depressive disorder, single episode, unspecified; F17.210 Nicotine dependence, cigarettes, uncomplicated; Z98.890 Other specified postprocedural states; Z87.19 Personal history of other diseases of the digestive system; Z80.0 Family history of malignant neoplasm of digestive organs; Z82.49 Family history of ischemic heart disease and other diseases of the circulatory system
CPT/HCPCS: 36415; 71046; 80053; 83735; 83874; 84484; 84703; 85025; 85379; 85610; 85730; 87804; 93005; 93041

== ENCOUNTER 2018-12-18 19:31 | Emergency (ER) | payer SELFPAY ==
[~2018-12-18] VITALS: Ht 160 cm; Wt 86.2 kg
[~2018-12-18 19:31] MED LIST changes: +OMEP20CA12 PO
--- OUTSIDE RECORDS SUMMARY | 2018-12-18 19:35 | XMS REPORT | Continuity of Care Document ---
Author Author [facility] Organization [facility] Address Unknown Phone Unavailable Allergies Active Description Code Type Severity Reaction Onset Reported/Identified Relationship to Patient Clinical Status Yes No Known Drug Allergies [id number] Drug Allergy Unknown N/A 02/12/2016 Medications There [...] 02/08/2016 MAHER DO, YOON Ot F17.210 02/08/2016 GUNNAR MOREAU YOON Ot R10.11 02/08/2016 GUNNAR MOREAU [...] UNSP, W/O PERF 02/26/2016 CJ LAWRENCE, CAMRYN Ot K64.1 SECOND DEGREE HEMORRHOIDS 02/26/2016 CJ LAWRENCE, CAMRYN Ot Z80.0 FAMILY HISTORY OF MALIGNANT NEOPLASM OF 10/24/2017 CAROL PLASENCIA DO Ot F17.210 NICOTINE DEPENDENCE, CIGARETTES, UNCOMPL 10/24/2017 CAROL PLASENCIA DO Ot F32.9 MAJOR DEPRESSIVE DISORDER, SINGLE EPISOD 10/24/2017 CAROL PLASENCIA DO Ot F41.9 ANXIETY DISORDER, UNSPECIFIED 10/24/2017 CAROL PLASENCIA DO Ot N93.8 OTHER SPECIFIED ABNORMAL UTERINE AND VAG 10/24/2017 CAROL PLASENCIA DO Ot N99.821 POSTPROC HEMOR OF A SYS ORG FOLLOWING 10/24/2017 CAROL PLASENCIA DO Ot Z80.9 FAMILY HISTORY OF MALIGNANT NEOPLASM, UN 10/24/2017 LUIS ANGEL DO, CAROL K Ot Z82.49 FAMILY HX OF ISCHEM HEART DIS AND OTH DI 10/24/2017 LUIS ANGEL MOREAU CAROL K Ot Z87.59 PERSONAL HISTORY OF COMP OF PREG, CHLDBR 10/30/2017 LUIS ANGEL MOREAU CAROL K Ot F17.210 NICOTINE DEPENDENCE, CIGARETTES, UNCOMPL 10/30/2017 LUIS ANGEL MOREAU CAROL K Ot F32.9 MAJOR DEPRESSIVE DISORDER, SINGLE EPISOD 10/30/2017 LUIS ANGEL MOREAU CAROL K Ot F41.9 ANXIETY DISORDER, UNSPECIFIED 10/30/2017 LUIS ANGEL MOREAU CAROL K Ot N93.8 OTHER SPECIFIED ABNORMAL UTERINE AND VAG 10/30/2017 LUIS ANGEL MOREAU CAROL K Ot N99.821 POSTPROC HEMOR OF A SYS ORG FOLLOWING 10/30/2017 LUIS ANGEL MOREAU CAROL Weller Ot Z80.9 FAMILY HISTORY OF MALIGNANT NEOPLASM, UN 10/30/2017 LUIS ANGEL MOREAU CAROL K Ot Z82.49 FAMILY HX OF ISCHEM HEART DIS AND OTH DI 10/30/2017 LUIS ANGEL MOREAU CAROL Weller Ot Z87.59 PERSONAL HISTORY OF COMP OF PREG, CHLDBR 08/15/2018 ELVIRA BENITEZ MD Ot F17.210 NICOTINE DEPENDENCE, CIGARETTES, UNCOMPL 08/15/2018 ELVIRA BENITEZ MD Ot F32.9 MAJOR DEPRESSIVE DISORDER, SINGLE EPISOD 08/15/2018 ELVIRA BENITEZ MD Ot F41.9 ANXIETY DISORDER, UNSPECIFIED 08/15/2018 ELVIRA BENITEZ MD Ot R07.81 PLEURODYNIA 08/15/2018 ELVIRA BENITEZ MD Ot Z80.0 FAMILY HISTORY OF MALIGNANT NEOPLASM OF 08/15/2018 ELVIRA BENITEZ MD Ot Z82.49 FAMILY HX OF ISCHEM HEART DIS AND OTH DI 08/15/2018 ELVIRA BENITEZ MD Ot Z87.19 PERSONAL HISTORY OF OTHER DISEASES OF TH 08/15/2018 ELVIRA BENITEZ MD Ot Z98.890 OTHER SPECIFIED POSTPROCEDURAL STATES 08/16/2018 ELVIRA BENITEZ MD Ot F17.210 NICOTINE DEPENDENCE, CIGARETTES, UNCOMPL 08/16/2018 ELVIRA BENITEZ MD Ot F32.9 MAJOR DEPRESSIVE DISORDER, SINGLE EPISOD 08/16/2018 ELVIRA BENITEZ MD, Ot F41.9 ANXIETY DISORDER, UNSPECIFIED 08/16/2018 ELVIRA BENITEZ MD, Ot R07.81 PLEURODYNIA 08/16/2018 ELVIRA BENITEZ MD, Ot Z80.0 FAMILY HISTORY OF MALIGNANT NEOPLASM OF 08/16/2018 ELVIRA BENITEZ MD, Ot Z82.49 FAMILY HX OF ISCHEM HEART DIS AND OTH DI 08/16/2018 ELVIRA BENITEZ MD, Ot Z87.19 PERSONAL HISTORY OF OTHER DISEASES OF TH 08/16/2018 ELVIRA BENITEZ MD, Ot Z98.890 OTHER SPECIFIED POSTPROCEDURAL STATES Procedures There is no data. Results Test [...] plasma calcium measurement (mass/volume) 9.1 mg/dL 8.5-10.1 Complete blood count (CBC) with automated white blood cell (WBC) differential - 08/14/18 21:40 Blood leukocytes automated count (number/volume) 9.5 10*3/uL 4.3-11.0 Blood erythrocytes automated count (number/volume) 4.73 10*6/uL 4.35-5.85 Venous blood hemoglobin measurement (mass/volume) 14.6 g/dL 11.5-16.0 Blood hematocrit (volume fraction) 42 % 35-52 Automated erythrocyte mean corpuscular volume 89 [foz_us] 80-99 Automated erythrocyte mean corpuscular hemoglobin (mass per erythrocyte) 31 pg 25-34 Automated erythrocyte mean corpuscular hemoglobin concentration measurement ( mass/volume) 35 g/dL 32-36 Automated erythrocyte distribution width ratio 13.7 % 10.0-14.5 Automated blood platelet count (count/volume) 386 10*3/uL 130-400 Automated blood platelet mean volume measurement 10.4 [foz_us] 7.4-10.4 Automated blood neutrophils/100 leukocytes 54 % 42-75 Automated blood lymphocytes/100 leukocytes 34 % 12-44 Blood monocytes/100 leukocytes 8 % 0-12 Automated blood eosinophils/100 leukocytes 3 % 0-10 Automated blood basophils/100 leukocytes 1 % 0-10 Blood neutrophils automated count (number/volume) 5.1 10*3 1.8-7.8 Blood lymphocytes automated count (number/volume) 3.3 10*3 1.0-4.0 Blood monocytes automated count (number/volume) 0.8 10*3 0.0-1.0 Automated eosinophil count 0.3 10*3/uL 0.0-0.3 Automated blood basophil count (count/volume) 0.1 10*3/uL 0.0-0.1 Serum or plasma choriogonadotropin ( test) detection - 08/14/18 21:40 Serum or plasma choriogonadotropin ( test) detection NEGATIVE NEGATIVE PT panel in platelet poor plasma by coagulation assay - 08/14/18 21:40 Prothrombin time (PT) in platelet poor plasma by coagulation assay 12.5 s 12.2-14.7 INR in platelet poor plasma or blood by coagulation assay 0.9 0.8-1.4 Activated partial thromboplastin time (aPTT) in platelet poor plasma bycoagulation assay - 08/14/18 21:40 Activated partial thromboplastin time (aPTT) in platelet poor plasma bycoagulation assay 29 s 24-35 Fibrin D-dimer FEU measurement in platelet poor plasma (mass/volume) - 21:40 Fibrin D-dimer FEU measurement in platelet poor plasma (mass/volume) 0.46 ug/mL 0.00-0.49 Comprehensive metabolic panel - 08/14/18 21:40 Serum or plasma sodium measurement (moles/volume) 141 mmol/L 135-145 Serum or plasma potassium measurement (moles/volume) 3.6 mmol/L 3.6-5.0 Serum or plasma chloride measurement (moles/volume) 107 mmol/L 98-107 Carbon dioxide 22 mmol/L 21-32 Serum or plasma anion gap determination (moles/volume) 12 mmol/L 5-14 Serum or plasma urea nitrogen measurement (mass/volume) 12 mg/dL 7-18 Serum or plasma creatinine measurement (mass/volume) 0.77 mg/dL 0.60-1.30 Serum or plasma urea nitrogen/creatinine mass ratio 16 NRG Serum or plasma creatinine measurement with calculation of estimated glomerular filtration rate > NRG Serum or plasma glucose measurement (mass/volume) 89 mg/dL 70-105 Serum or plasma calcium measurement (mass/volume) 9.7 mg/dL 8.5-10.1 Serum or plasma total bilirubin measurement (mass/volume) 0.3 mg/dL 0.1-1.0 Serum or plasma alkaline phosphatase measurement (enzymatic activity/volume) 65 U/L 40-136 Serum or plasma aspartate aminotransferase measurement (enzymatic activity/ volume) 16 U/L 5-34 Serum or plasma alanine aminotransferase measurement (enzymatic activity/volume ) 27 U/L 0-55 Serum or plasma protein measurement (mass/volume) 8.0 g/dL 6.4-8.2 Serum or plasma albumin measurement (mass/volume) 4.2 g/dL 3.2-4.5 CALCIUM CORRECTED 9.5 mg/dL 8.5-10.1 Magnesium - 08/14/18 21:40 Magnesium 3.1 mg/dL 1.8-2.4 Serum or plasma troponin i.cardiac measurement (mass/volume) - 08/14/18 21:40 Serum or plasma troponin i.cardiac measurement (mass/volume) < ng/ mL <0.30 Myoglobin, serum - 08/14/18 21:40 Myoglobin, serum 36.5 ng/mL 10.0-92.0 Influenza virus A and B antigen detection - 08/14/18 22:15 FLU RESULT NEGATIVE FOR INFLUENZA A AND B ANTIGENS BY IA NRG Encounters ACCT No. Visit Date/Time Discharge Status Pt. Type Provider Facility Loc./Unit Complaint [id number] 08/14/2018 21:08:00 08/15/2018 00:57:00 DIS Emergency ELI LAWRENCE, ELVIRA Mckoy [facility] ER CP [id number] 10/24/2017 21:17:00 10/24/2017 22:35:00 DIS Emergency CAROL PLASENCIA DO [facility] ER VAG PAIN W BLEEDING [id number] 02/12/2016 10:27:00 02/12/2016 15:30:00 DIS Outpatient CAMRYN CORONA MD [facility] SDC ABD PAIN,N/V [id number] 02/11/2016 11:17:00 02/11/2016 13:54:00 DIS Outpatient CAMRYN CORONA MD [facility] PREOP ABD PAIN,N/V [id number] 12/18/2018 19:32:00 ACT Emergency CAROL PLASENCIA DO [facility] ER VOMITTING BLOOD [id number] 02/09/2016 11:09:00 Document Registration [id number] 02/07/2016 16:24:00 ACT Inpatient YOON MAHER DO [facility] 4TH HYPOLKALEMIA,NAUSEA,VOMITING,ABD PAIN
[2018-12-18 20:08] LABS: BASOPHILS # (AUTO) 0.1 10^3/uL (0.0-0.1); BASOPHILS % (AUTO) 1 % (0-10); EOSINOPHILS # (AUTO) 0.5 10^3/uL (0.0-0.3); EOSINOPHILS % (AUTO) 4 % (0-10); HEMATOCRIT 42 % (35-52); HEMOGLOBIN 14.1 G/DL (11.5-16.0); LYMPHOCYTES # (AUTO) 3.3 X 10^3 (1.0-4.0); LYMPHOCYTES % (AUTO) 26 % (12-44); MEAN CORPUSCULAR HEMOGLOBIN 30 PG (25-34); MEAN CORPUSCULAR HGB CONC 33 G/DL (32-36); MEAN CORPUSCULAR VOLUME 90 FL (80-99); MEAN PLATELET VOLUME 10.2 FL (7.4-10.4); MONOCYTES % (AUTO) 8 % (0-12); NEUTROPHILS # (AUTO) 7.6 X 10^3 (1.8-7.8); NEUTROPHILS % (AUTO) 61 % (42-75); PLATELET COUNT 343 10^3/uL (130-400); RED CELL DISTRIBUTION WIDTH 13.8 % (10.0-14.5); WHITE BLOOD COUNT 12.4 10^3/uL (4.3-11.0)
--- NOTE | 2018-12-18 20:11 | ED Abdominal Pain ---
General Chief Complaint: Abdominal/GI Problems Stated Complaint: VOMITTING BLOOD Nursing Triage Note: pt reports 3 episodes of bloody emesis starting at 1100 today. pt also reports epigastric pain and diahrrea. Sepsis Screen: No Definite Risk Source of Information: Patient Exam Limitations: No Limitations History of Present Illness Date Seen by Provider: Dec 18, 2018 Time Seen by Provider: 20:09 Initial Comments To ER per private vehicle by mother with reports of epigastric abdominal pain and vomiting. Symptoms began this morning. She's vomited 3 times throughout the day today. This morning she had a small amount of blood-streaked vomit. This evening she vomited again and noticed a rather large amount of bright red blood. She denies fevers or chills. She has a picture on her phone showing the emesis which does appear to have some bright red blood in it. She states that she was seen here several years ago for "a bacteria in my stomach". But cannot recall what it was. She has never vomited blood before. Timing/Duration: 12-24 Hours Severity/Quality: Moderate Location: Epigastric Radiation: No Radiation Activities at Onset: None Associated Symptoms: Nausea/Vomiting Allergies and Home Medications Allergies Coded Allergies: No Known Drug Allergies (Verified , 02/12/16) Home Medications Omeprazole 20 Mg Capsule.dr, 20 MG PO BID Prescribed by: ELVIRA NICOLE on 08/15/18 0031 Pantoprazole Sodium 40 Mg Tablet.dr, 40 MG PO DAILY Prescribed by: CAMRYN CORONA on 02/12/16 1432 Potassium Chloride 10 Meq Tablet.er, 10 MEQ PO BID Prescribed by: YOON MAHER on 02/08/16 0931 Sucralfate 1 Gm Tablet, 1 GM PO QID Prescribed by: CAMRYN CORONA on 02/12/16 1432 Patient Home Medication List Home Medication List Reviewed: Yes Review of Systems Review of Systems Constitutional: see HPI EENTM: No Symptoms Reported Respiratory: No Symptoms Reported Cardiovascular: No Symptoms Reported Gastrointestinal: See HPI, Abdominal Pain, Nausea, Vomiting 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: No Symptoms Reported Musculoskeletal: no symptoms reported Skin: no symptoms reported Psychiatric/Neurological: No Symptoms Reported Endocrine: No Symptoms Reported Past Paeagys-Cpryce-Mdwtfq Hx Patient Social History Alcohol Use: Denies Use Recreational Drug Use: Yes (marijuana) Smoking Status: Current Everyday Smoker Type Used: Cigarettes 2nd Hand Smoke Exposure: No Recent Foreign Travel: No Contact w/Someone Who Travel: No Recent Infectious Disease Expo: No Recent Hopitalizations: No Physical Abuse: No Sexual Abuse: No Mistreated: No Fear: No Immunizations Up To Date Tetanus Booster (TDap): Unknown PED Vaccines UTD: Yes Seasonal Allergies Seasonal Allergies: No Past Medical History Surgeries: Yes (Lipoma removed from abdomen) Section, Gallbladder Respiratory: No Currently Using CPAP: No Currently Using BIPAP: No Cardiac: No Neurological: No 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 Disorders: No 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 DIRECTOR BUSINESS DEVELOPMENT History: IUD 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: No Gastrointestinal: No Diverticulosis Musculoskeletal: No Endocrine: No HEENT: No Loss of Vision: Denies Hearing Impairment: Denies Cancer: No Psychosocial: Yes Anxiety, Depression Integumentary: No Blood Disorders: No Family Medical History Arthritis 19 MOTHER GRANDMA-MATERAL Colon cancer GRANDP-MATERANL Completed stroke 19 FATHER Congenital disease 19 FATHER Congenital heart disease 19 FATHER Diabetes mellitus 19 FATHER GRANDMA-MATERAL Hypercholesterolemia Myocardial infarction 19 FATHER GRANDP-MATERANL Heart Disease, Cancer, Diabetes Physical Exam Vital Signs Vital Signs - First Documented 12/18/18 19:50 Temp 98.4 Pulse 96 Resp 20 B/P (MAP) 142/89 (106) Pulse Ox 99 Capillary Refill : Less Than 3 Seconds Height/Weight/BMI Height: 5'3.00" Weight: 190lbs. 6.4oz. 86.777540ou; 30.2 BMI Method:Stated General Appearance: WD/WN, no apparent distress HEENT: PERRL/EOMI, normal ENT inspection Respiratory: normal breath sounds, no respiratory distress, no accessory muscle use Gastrointestinal: normal bowel sounds, soft, tenderness (epigastric) Extremities: normal range of motion, non-tender Neurologic/Psychiatric: alert, normal mood/affect, oriented x 3 Skin: normal color, warm/dry Progress/Results/Core Measures Results/Orders Lab Results Laboratory Tests Test 12/18/18 20:03 12/18/18 20:07 Range/Units White Blood Count 12.4 H 4.3-11.0 10^3/uL Red Blood Count 4.69 4.35-5.85 10^6/uL Hemoglobin 14.1 11.5-16.0 G/DL Hematocrit 42 35-52 % Mean Corpuscular Volume 90 80-99 FL Mean Corpuscular Hemoglobin 30 25-34 PG Mean Corpuscular Hemoglobin Concent 33 32-36 G/DL Red Cell Distribution Width 13.8 10.0-14.5 % Platelet Count 343 130-400 10^3/uL Mean Platelet Volume 10.2 7.4-10.4 FL Neutrophils (%) (Auto) 61 42-75 % Lymphocytes (%) (Auto) 26 12-44 % Monocytes (%) (Auto) 8 0-12 % Eosinophils (%) (Auto) 4 0-10 % Basophils (%) (Auto) 1 0-10 % Neutrophils # (Auto) 7.6 1.8-7.8 X 10^3 Lymphocytes # (Auto) 3.3 1.0-4.0 X 10^3 Monocytes # (Auto) 1.0 0.0-1.0 X 10^3 Eosinophils # (Auto) 0.5 H 0.0-0.3 10^3/uL Basophils # (Auto) 0.1 0.0-0.1 10^3/uL Sodium Level 138 135-145 MMOL/L Potassium Level 3.8 3.6-5.0 MMOL/L Chloride Level 107 98-107 MMOL/L Carbon Dioxide Level 21 21-32 MMOL/L Anion Gap 10 5-14 MMOL/L Blood Urea Nitrogen 5 L 7-18 MG/DL Creatinine 0.65 0.60-1.30 MG/DL Estimat Glomerular Filtration Rate > 60 BUN/Creatinine Ratio 8 Glucose Level 98 70-105 MG/DL Calcium Level 9.2 8.5-10.1 MG/DL Corrected Calcium 9.1 8.5-10.1 MG/DL Total Bilirubin 0.2 0.1-1.0 MG/DL Aspartate Amino Transf (AST/SGOT) 17 5-34 U/L Alanine Aminotransferase (ALT/SGPT) 26 0-55 U/L Alkaline Phosphatase 57 40-136 U/L Total Protein 7.2 6.4-8.2 GM/DL Albumin 4.1 3.2-4.5 GM/DL Lipase 16 8-78 U/L Serum Test, Qualitative NEGATIVE NEGATIVE Urine Color YELLOW Urine Clarity CLEAR Urine pH 7 5-9 Urine Specific [place] 1.010 L 1.016-1.022 Urine Protein NEGATIVE NEGATIVE Urine Glucose (UA) NEGATIVE NEGATIVE Urine Ketones NEGATIVE NEGATIVE Urine Nitrite NEGATIVE NEGATIVE Urine Bilirubin NEGATIVE NEGATIVE Urine Urobilinogen NORMAL NORMAL MG/DL Urine Leukocyte Esterase 1+ H NEGATIVE Urine RBC (Auto) NEGATIVE NEGATIVE Urine RBC NONE /HPF Urine WBC 2-5 /HPF Urine Squamous Epithelial Cells 25-50 H /HPF Urine Crystals NONE /LPF Urine Bacteria NONE /HPF Urine Casts NONE /LPF Urine Mucus NEGATIVE /LPF Urine Culture Indicated NO My Orders Orders - SHANELL HANLEY APRN Cbc With Automated Diff (12/18/18 20:02) Comprehensive Metabolic Panel (12/18/18 20:02) Lipase (12/18/18 20:02) Ua Culture If Indicated (12/18/18 20:02) Hcg,Qualitative Serum (12/18/18 20:02) Iv Heplock-Insert (Order) (12/18/18 20:02) Ondansetron Injection (Zofran Injectio (12/18/18 20:15) Ns Iv 1000 Ml (Sodium Chloride 0.9%) (12/18/18 20:15) Pantoprazole Injection (Protonix Injecti (12/18/18 20:15) Antacid Suspension (Mylanta Suspension (12/18/18 20:15) Lidocaine 2% Viscous 15 Ml (Xylocaine Vi (12/19/18 06:00) Helicobacter Pylori Alexa Igg (12/18/18 20:06) Ct Abdomen/Pelvis W (12/18/18 20:06) Lidocaine 2% Viscous 15 Ml (Xylocaine Vi (12/18/18 20:15) Medications Given in ED Current Medications Medications Dose Ordered Sig/Marnie Route Start Time Stop Time Status Last Admin Dose Admin Al Hydrox/Mg Hydrox/Simethicone 30 ml ONCE ONCE PO 12/18/18 20:15 12/18/18 20:16 DC 12/18/18 20:22 30 ML Ondansetron HCl 8 mg ONCE ONCE IVP 12/18/18 20:15 12/18/18 20:16 DC 12/18/18 20:09 8 MG Pantoprazole 80 mg ONCE ONCE IV 12/18/18 20:15 12/18/18 20:16 DC 12/18/18 20:21 80 MG Vital Signs/I&O 12/18/18 19:50 Temp 98.4 Pulse 96 Resp 20 B/P (MAP) 142/89 (106) Pulse Ox 99 Blood Pressure Mean: 106 Departure Communication (Admissions) Discussed the case with Dr. Maria on-call for surgery. Recommends clear liquid diet for 2-3 days, Protonix 40 mg twice a day, return for worsening and to call his office tomorrow to make an appointment for follow-up. Impression Primary Impression: Hematemesis Qualified Codes: K92.0 - Hematemesis Additional Impression: Epigastric abdominal pain Disposition: HOME, SELF-CARE Condition: Stable Departure-Patient Inst. Decision time for Depature: 21:21 Referrals: AMARIS MARIA PANKAJ K MD (PCP/Family) Primary Care Physician Patient Instructions: Peptic Ulcers (DC) Add. Discharge Instructions: 1. Based on your symptoms U most likely have gastritis/peptic ulcer. Take the aspirin use or twice daily as directed. Clear liquids only (no red substances) for the next [address] Maria's office tomorrow to make an appointment to be seen for follow-up. All discharge instructions reviewed with patient and/ or family. Voiced understanding. Scripts Pantoprazole Sodium (Protonix) 40 Mg Jessa. 40 MG PO BID, #40 TAB Prov: SHANELL HANLEY APRN 12/18/18 Work/School Note: Work Release Form Date Seen in the Emergency Department: Dec 18, 2018 Return to Work: Dec 20, 2018 Copy Copies To 1: AMARIS MARIA PETER J APRN Dec 18, 2018 20:11
[2018-12-18 20:15] LABS: BILIRUBIN,URINE NEGATIVE (NEGATIVE); CLARITY,URINE CLEAR; COLOR,URINE YELLOW; GLUCOSE, URINE (UA) NEGATIVE (NEGATIVE); KETONES,URINE NEGATIVE (NEGATIVE); LEUKOCYTE ESTERASE ,URINE 1+ (NEGATIVE); NITRITE,URINE NEGATIVE (NEGATIVE); PH,URINE 7 (5-9); PROTEIN,URINE NEGATIVE (NEGATIVE); UROBILINOGEN,URINE NORMAL (NORMAL)
[2018-12-18] MEDS ORDERED: LIDOCAINE 2% VISCOUS 15 ML UDC ONE (20:15)
[2018-12-18] MEDS ORDERED: NS IV 1000 ML 1,000 ML IV SCH (20:15)
[2018-12-18] MEDS ORDERED: PANTOPRAZOLE 40 MG (PROTONIX) VIAL IV ONE (20:15)
[2018-12-18] MEDS ORDERED: ANTACID SUSP 30 ML UDC (MYLANTA) PO ONE (20:15)
[2018-12-18] MEDS ORDERED: ONDANSETRON 4 MG/2 ML (SDV) Z0FRAN IVP ONE (20:15)
[2018-12-18 20:26] LABS: TOTAL PROTEIN 7.2 GM/DL (6.4-8.2)
[2018-12-18 20:26] LABS: SQUAMOUS EPITHELIAL CELL,UR 25-50 /HPF
[2018-12-18 20:27] LABS: ALANINE AMINOTRANSFERASE 26 U/L (0-55); ALBUMIN 4.1 GM/DL (3.2-4.5); ALKALINE PHOSPHATASE 57 U/L (40-136); BILIRUBIN,TOTAL 0.2 MG/DL (0.1-1.0); BUN/CREATININE RATIO 8; CALCIUM 9.2 MG/DL (8.5-10.1); CARBON DIOXIDE 21 MMOL/L (21-32); CHLORIDE 107 MMOL/L (98-107); CREATININE SERUM 0.65 MG/DL (0.60-1.30); GFR ESTIMATED > 60; GLUCOSE 98 MG/DL (70-105); LIPASE 16 U/L (8-78); POTASSIUM 3.8 MMOL/L (3.6-5.0); SODIUM 138 MMOL/L (135-145)
--- NOTE | 2018-12-18 21:14 | Diagnostic Imaging Report ---
PROCEDURE: CT abdomen and pelvis with contrast. TECHNIQUE: Multiple contiguous axial images were obtained through the abdomen and pelvis after administration of intravenous contrast. DATE: December 18, 2018. COMPARISON: CT abdomen and pelvis, February 07, 2016. INDICATION: 33-year-old female, bloody emesis, epigastric pain, diarrhea. FINDINGS: There is minimal dependent atelectasis in the lung bases. The heart is not enlarged. There is no pericardial effusion. The liver is normal in size and contour. There is no identified liver lesion. The patient is status post cholecystectomy. There is no intrahepatic or extrahepatic bile duct dilation. The main pancreatic duct is not abnormally dilated. Unremarkable appearance of the pancreatic parenchyma. The spleen is not enlarged. There is a small accessory splenule on axial image 19. The adrenal glands are unremarkable. Unremarkable appearance of the renal parenchyma. The urinary collecting systems are not distended. The urinary bladder is unremarkable in appearance. There are round low attenuation lesions in the right and left ovaries likely relating to ovarian follicles or cysts. These measure up to maximally 2.0 cm in size. There is no sizable volume free pelvic fluid. There is diverticulosis without evidence of acute diverticulitis. The appendix is well seen on axial image 59 and adjacent sequential images. The appendix is unremarkable. There is no free intraperitoneal air. There is no drainable fluid collection. There is a very small fat-containing umbilical hernia. There is no identified abnormally enlarged lymph node in the abdomen or pelvis which meets CT size criteria for adenopathy. There is no identified acute bony abnormality. IMPRESSION: CT abdomen and pelvis: 1. Bilateral ovarian follicles or cysts, measuring up to 2 cm in size. 2. No identified acute abnormality in the abdomen or pelvis. Dictated by: Dictated on workstation # [id number]
[2018-12-18] MEDS ORDERED: PANT40SU PO (21:23)
[2018-12-18 21:35] VITALS: BP 104/55
[2018-12-19] MEDS ORDERED: LIDOCAINE 2% VISCOUS 15 ML UDC PO SCH (06:00)
== END 2018-12-18 21:38 | disposition home or self-care (01) ==
LOC: EDUNIT# 19:31 → ER 19:32
DX: K92.0 Hematemesis (principal); R10.13 Epigastric pain; F41.9 Anxiety disorder, unspecified; F32.9 Major depressive disorder, single episode, unspecified; F17.210 Nicotine dependence, cigarettes, uncomplicated; Z98.890 Other specified postprocedural states; Z97.5 Presence of (intrauterine) contraceptive device; Z87.19 Personal history of other diseases of the digestive system; Z82.49 Family history of ischemic heart disease and other diseases of the circulatory system; Z80.0 Family history of malignant neoplasm of digestive organs
CPT/HCPCS: 36415; 74177; 80053; 81000; 83690; 84703; 85025; 86677

== ENCOUNTER 2019-01-16 02:43 | Inpatient (IN) | payer SELFPAY ==
[~2019-01-16] VITALS: Ht 160 cm; Wt 86.2 kg
[~2019-01-16 02:43] MED LIST changes: +PANT40SU PO
--- OUTSIDE RECORDS SUMMARY | 2019-01-16 02:50 | XMS REPORT | Continuity of Care Document ---
Author Author [facility] Organization [facility] Address Unknown Phone Unavailable Allergies Active Description Code Type Severity Reaction Onset Reported/Identified Relationship to Patient Clinical Status Yes No Known Drug Allergies [id number] Drug Allergy Unknown N/A 02/12/2016 Medications There [...] OF MALIGNANT NEOPLASM OF 02/13/2016 CJ LAWRENCE, ACMRYN Ot K21.0 02/13/2016 CJ LAWRENCE, CAMRYN Ot [...] DEPRESSIVE DISORDER, SINGLE EPISOD 10/30/2017 LUIS ANGEL DO CAROL K Ot F41.9 ANXIETY DISORDER, UNSPECIFIED 10/30/2017 LUIS ANGEL CAROL Weller Ot N93.8 OTHER SPECIFIED ABNORMAL UTERINE AND VAG 10/30/2017 LUIS ANGEL CAROL Weller Ot N99.821 POSTPROC HEMOR OF A SYS ORG FOLLOWING 10/30/2017 LUIS ANGEL DOCAROL Ot Z80.9 FAMILY HISTORY OF MALIGNANT NEOPLASM, UN 10/30/2017 LUIS ANGEL DOCAROL Ot Z82.49 FAMILY HX OF ISCHEM HEART DIS AND OTH DI 10/30/2017 LUIS ANGEL DO CAROL Weller Ot Z87.59 PERSONAL HISTORY OF [...] Ot F17.210 NICOTINE DEPENDENCE, CIGARETTES, UNCOMPL 08/16/2018 BRUEGGEMANN MD, LEVIRA T Ot F32.9 MAJOR DEPRESSIVE DISORDER, SINGLE EPISOD 08/16/2018 ELVIRA BENITEZ MD Ot F41.9 ANXIETY DISORDER, UNSPECIFIED 08/16/2018 ELI LAWRENCE, ELVIRA Mckoy Ot R07.81 PLEURODYNIA 08/16/2018 ELVIRA BENITEZ MD Ot Z80.0 FAMILY HISTORY OF MALIGNANT NEOPLASM OF 08/16/2018 ELVIRA BENITEZ MD Ot Z82.49 FAMILY HX OF ISCHEM HEART DIS AND OTH DI 08/16/2018 ELVIRA BENITEZ MD Ot Z87.19 PERSONAL HISTORY OF OTHER DISEASES OF TH 08/16/2018 ELVIRA BENITEZ MD Ot Z98.890 OTHER SPECIFIED POSTPROCEDURAL STATES 12/20/2018 SHANELL HANLEY APRN Ot F17.210 NICOTINE DEPENDENCE, CIGARETTES, UNCOMPL 12/20/2018 SHANELL HANLEY APRN Ot F32.9 MAJOR DEPRESSIVE DISORDER, SINGLE EPISOD 12/20/2018 SHANELL HANLEY APRN Ot F41.9 ANXIETY DISORDER, UNSPECIFIED 12/20/2018 SHANELL HANLEY APRN Ot K92.0 HEMATEMESIS 12/20/2018 SHANELL HANLEY APRN Ot R10.13 EPIGASTRIC PAIN 12/20/2018 SHANELL HALNEY APRN Ot Z80.0 FAMILY HISTORY OF MALIGNANT NEOPLASM OF 12/20/2018 SHANELL HANLEY APRN Ot Z82.49 FAMILY HX OF ISCHEM HEART DIS AND OTH DI 12/20/2018 SHANELL HANLEY APRN Ot Z87.19 PERSONAL HISTORY OF OTHER DISEASES OF TH 12/20/2018 SHANELL HANLEY GEMOLOGIST Ot Z97.5 PRESENCE OF (INTRAUTERINE) CONTRACEPTIVE 12/20/2018 SHANELL HANLEY APRN Ot Z98.890 OTHER SPECIFIED POSTPROCEDURAL STATES 12/24/2018 SHANELL HANLEY APRN Ot F17.210 NICOTINE DEPENDENCE, CIGARETTES, UNCOMPL 12/24/2018 SHANELL HANLEY APRN Ot F32.9 MAJOR DEPRESSIVE DISORDER, SINGLE EPISOD 12/24/2018 SHANELL HANLEY GEMOLOGIST Ot F41.9 ANXIETY DISORDER, UNSPECIFIED 12/24/2018 SHANELL HANLEY APRN Ot K92.0 HEMATEMESIS 12/24/2018 SHANELL HANLEY APRN Ot R10.13 EPIGASTRIC PAIN 12/24/2018 SHANELL HANLEY APRN Ot Z80.0 FAMILY HISTORY OF MALIGNANT NEOPLASM OF 12/24/2018 SHANELL HANLEY APRN Ot Z82.49 FAMILY HX OF ISCHEM HEART DIS AND OTH DI 12/24/2018 SHANELL HANLEY APRN Ot Z87.19 PERSONAL HISTORY OF OTHER DISEASES OF TH 12/24/2018 SHANELL HANLEY APRN Ot Z97.5 PRESENCE OF (INTRAUTERINE) CONTRACEPTIVE 12/24/2018 SHANELL HANLEY APRN Ot Z98.890 OTHER SPECIFIED POSTPROCEDURAL STATES Procedures [...] Automated blood platelet mean volume measurement 10.[address] [[address] [facility]] 7.4-10.4 Automated blood neutrophils/100 leukocytes 54 % [...] FOR INFLUENZA A AND B ANTIGENS BY [facility] Complete blood count (CBC) with automated white blood cell (WBC) differential - 12/18/18 20:03 Blood leukocytes automated count (number/volume) 12.4 10*3/uL 4.3-11.0 Blood erythrocytes automated count (number/volume) 4.69 10*6/uL 4.35-5.85 Venous blood hemoglobin measurement (mass/volume) 14.1 g/dL 11.5-16.0 Blood hematocrit (volume fraction) 42 % 35-52 Automated erythrocyte mean corpuscular volume 90 [foz_us] 80-99 Automated erythrocyte mean corpuscular hemoglobin (mass per erythrocyte) 30 pg 25-34 Automated erythrocyte mean corpuscular hemoglobin concentration measurement ( mass/volume) 33 g/dL 32-36 Automated erythrocyte distribution width ratio 13.8 % 10.0-14.5 Automated blood platelet count (count/volume) 343 10*3/uL 130-400 Automated blood platelet mean volume measurement 10.2 [foz_us] 7.4-10.4 Automated blood neutrophils/100 leukocytes 61 % 42-75 Automated blood lymphocytes/100 leukocytes 26 % 12-44 Blood monocytes/100 leukocytes 8 % 0-12 Automated blood eosinophils/100 leukocytes 4 % 0-10 Automated blood basophils/100 leukocytes 1 % 0-10 Blood neutrophils automated count (number/volume) 7.6 10*3 1.8-7.8 Blood lymphocytes automated count (number/volume) 3.3 10*3 1.0-4.0 Blood monocytes automated count (number/volume) 1.0 10*3 0.0-1.0 Automated eosinophil count 0.5 10*3/uL 0.0-0.3 Automated blood basophil count (count/volume) 0.1 10*3/uL 0.0-0.1 Serum or plasma choriogonadotropin ( test) detection - 12/18/18 20:03 Serum or plasma choriogonadotropin ( test) detection NEGATIVE NEGATIVE Comprehensive metabolic panel - 12/18/18 20:03 Serum or plasma sodium measurement (moles/volume) 138 mmol/L 135-145 Serum or plasma potassium measurement (moles/volume) 3.8 mmol/L 3.6-5.0 Serum or plasma chloride measurement (moles/volume) 107 mmol/L 98-107 Carbon dioxide 21 mmol/L 21-32 Serum or plasma anion gap determination (moles/volume) 10 mmol/L 5-14 Serum or plasma urea nitrogen measurement (mass/volume) 5 mg/dL 7-18 Serum or plasma creatinine measurement (mass/volume) 0.65 mg/dL 0.60-1.30 Serum or plasma urea nitrogen/creatinine mass ratio 8 NRG Serum or plasma creatinine measurement with calculation of estimated glomerular filtration rate > NRG Serum or plasma glucose measurement (mass/volume) 98 mg/dL 70-105 Serum or plasma calcium measurement (mass/volume) 9.2 mg/dL 8.5-10.1 Serum or plasma total bilirubin measurement (mass/volume) 0.2 mg/dL 0.1-1.0 Serum or plasma alkaline phosphatase measurement (enzymatic activity/volume) 57 U/L 40-136 Serum or plasma aspartate aminotransferase measurement (enzymatic activity/ volume) 17 U/L 5-34 Serum or plasma alanine aminotransferase measurement (enzymatic activity/volume ) 26 U/L 0-55 Serum or plasma protein measurement (mass/volume) 7.2 g/dL 6.4-8.2 Serum or plasma albumin measurement (mass/volume) 4.1 g/dL 3.2-4.5 CALCIUM CORRECTED 9.1 mg/dL 8.5-10.1 Lipase - 12/18/18 20:03 Lipase 16 U/L 8-78 Serum Helicobacter pylori antibody assay (units/volume) - 12/18/18 20:03 Helicobacter pylori ab [units/volume] in serum 0.11 u[iU]/mL 0.00-0.79 Interpretation of Helicobacter pylori IgG antibody assay Negative Negative Complete urinalysis with reflex to culture - 12/18/18 20:07 Urine color determination YELLOW NRG Urine clarity determination CLEAR NRG Urine pH measurement by test strip 7 5-9 Specific gravity of urine by test strip 1.010 1.016- 1.022 Urine protein assay by test strip, semi-quantitative NEGATIVE NEGATIVE Urine glucose detection by automated test strip NEGATIVE NEGATIVE Erythrocytes detection in urine sediment by light microscopy NEGATIVE NEGATIVE Urine ketones detection by automated test strip NEGATIVE NEGATIVE Urine nitrite detection by test strip NEGATIVE NEGATIVE Urine total bilirubin detection by test strip NEGATIVE NEGATIVE Urine urobilinogen measurement by automated test strip (mass/volume) NORMAL NORMAL Urine leukocyte esterase detection by dipstick 1+ NEGATIVE Automated urine sediment erythrocyte count by microscopy (number/high power field) NONE NRG Automated urine sediment leukocyte count by microscopy (number/high power field ) [HPF] NRG Bacteria detection in urine sediment by light microscopy NONE NRG Squamous epithelial cells detection in urine sediment by light microscopy 25-50 NRG Crystals detection in urine sediment by light microscopy NONE NRG Casts detection in urine sediment by light microscopy NONE NRG Mucus detection in urine sediment by light microscopy NEGATIVE NRG Complete urinalysis with reflex to culture NO NRG Encounters ACCT No. Visit Date/Time Discharge Status Pt. Type Provider Facility Loc./Unit Complaint [id number] 12/18/2018 19:32:00 12/18/2018 21:38:00 DIS Outpatient SHANELL HANLEY APRN [facility] ER VOMITTING BLOOD [id number] 08/14/2018 21:08:00 08/15/2018 00:57:00 DIS Emergency ELVIRA BENITEZ MD [facility] ER CP [id number] 10/24/2017 21:17:00 10/24/2017 22:35:00 DIS Emergency CAROL PLASENCIA DO [facility] ER VAG PAIN W BLEEDING [id number] 02/12/2016 10:27:00 02/12/2016 15:30:00 DIS Outpatient CAMRYN CORONA MD [facility] SDC ABD PAIN,N/V [id number] 02/11/2016 11:17:00 02/11/2016 13:54:00 DIS Outpatient CAMRYN CORONA MD [facility] PREOP ABD PAIN,N/V [id number] 02/09/2016 11:09:00 Document Registration [id number] 02/07/2016 16:24:00 ACT Inpatient YOON MAHER DO [facility] 4TH HYPOLKALEMIA,NAUSEA,VOMITING,ABD PAIN
[2019-01-16] MEDS ORDERED: NS IV 1000 ML 1,000 ML IV STA (03:06)
[2019-01-16] MEDS ORDERED: ONDANSETRON 4 MG/2 ML (SDV) Z0FRAN IVP STA (03:06)
[2019-01-16] MEDS ORDERED: HYDROmorphone 2 MG/ML VIAL (DILAUDID) IV STA (03:06)
--- NOTE | 2019-01-16 03:11 | ED Abdominal Pain ---
General Chief Complaint: Abdominal/GI Problems Stated Complaint: LOWER ABDOMINAL PAIN History of Present Illness Date Seen by Provider: Jan 16, 2019 Time Seen by Provider: 02:59 Timing/Duration: 1 Hour Severity/Quality: Moderate, Severe Location: RLQ, LLQ, Suprapubic Radiation: No Radiation Activities at Onset: None Modifying Factors: Improves With Palpation Associated Symptoms: Nausea/Vomiting This is a 33-year-old female with a history of diverticulitis, 2 C-sections and a cholecystectomy here for lower abdominal pain that began tonight. She did have an episode of nonbilious nonbloody emesis, bowel movements have been normal today, urination has been normal today, no vaginal bleeding or discharge. No fever or chills. Allergies and Home Medications Allergies Coded Allergies: No Known Drug Allergies (Verified , 02/12/16) Home Medications Omeprazole 20 Mg Capsule.dr, 20 MG PO BID Prescribed by: ELVIRA NICOLE on 08/15/18 0031 Pantoprazole Sodium 40 Mg Tablet.dr, 40 MG PO DAILY Prescribed by: CAMRYN CORONA on 02/12/16 1432 Pantoprazole Sodium 40 Mg Granpkt.dr, 40 MG PO BID Prescribed by: SHANELL HANLEY on 12/18/18 2123 Potassium Chloride 10 Meq Tablet.er, 10 MEQ PO BID Prescribed by: YOON MAHER on 02/08/16 0931 Sucralfate 1 Gm Tablet, 1 GM PO QID Prescribed by: CAMRYN CORONA on 02/12/16 1432 Patient Home Medication List Home Medication List Reviewed: Yes Review of Systems Review of Systems Constitutional: no symptoms reported Respiratory: No Symptoms Reported, See HPI Cardiovascular: No Symptoms Reported, See HPI Gastrointestinal: See HPI 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: No Symptoms Reported, See HPI Psychiatric/Neurological: No Symptoms Reported, See HPI Endocrine: No Symptoms Reported, See HPI Hematologic/Lymphatic: No Symptoms Reported, See HPI Past Ivsubkx-Fgwcib-Iwacvr Hx Patient Social History Type Used: Cigarettes 2nd Hand Smoke Exposure: No Recent Foreign Travel: No Contact w/Someone Who Travel: No Recent Hopitalizations: No Immunizations Up To Date Tetanus Booster (TDap): Unknown PED Vaccines UTD: Yes Seasonal Allergies Seasonal Allergies: No Past Medical History Surgeries: Yes (Lipoma removed from abdomen) Section, Gallbladder Respiratory: No Currently Using CPAP: No Currently Using BIPAP: No Cardiac: No Neurological: No 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 Disorders: No 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: No Gastrointestinal: No Diverticulosis Musculoskeletal: No Endocrine: No HEENT: No Loss of Vision: Denies Hearing Impairment: Denies Cancer: No Psychosocial: Yes Anxiety, Depression Integumentary: No Blood Disorders: No Family Medical History Arthritis 19 MOTHER GRANDMA-MATERAL Colon cancer GRANDP-MATERANL Completed stroke 19 FATHER Congenital disease 19 FATHER Congenital heart disease 19 FATHER Diabetes mellitus 19 FATHER GRANDMA-MATERAL Hypercholesterolemia Myocardial infarction 19 FATHER GRANDP-MATERANL Heart Disease, Cancer, Diabetes Physical Exam Vital Signs Vital Signs - First Documented 01/16/19 03:06 Temp 98.3 Pulse 92 Resp 18 B/P (MAP) 132/85 (101) Pulse Ox 100 O2 Delivery Room Air Capillary Refill : Height/Weight/BMI Height: 5'3.00" Weight: 190lbs. 6.4oz. 86.369271lc; 30.2 BMI Method:Stated General Appearance: other HEENT: normal ENT inspection Neck: supple Respiratory: lungs clear Cardiovascular: normal peripheral pulses, regular rate, rhythm Gastrointestinal: soft, other (moderate diffuse lower abdominal tenderness with voluntary guarding) Neurologic/Psychiatric: alert, oriented x 3; No abnormal gait Skin: warm/dry Progress/Results/Core Measures Results/Orders Lab Results Laboratory Tests Test 01/16/19 03:25 01/16/19 04:20 Range/Units White Blood Count 15.0 H 4.3-11.0 10^3/uL Red Blood Count 4.52 4.35-5.85 10^6/uL Hemoglobin 13.5 11.5-16.0 G/DL Hematocrit 41 35-52 % Mean Corpuscular Volume 91 80-99 FL Mean Corpuscular Hemoglobin 30 25-34 PG Mean Corpuscular Hemoglobin Concent 33 32-36 G/DL Red Cell Distribution Width 13.3 10.0-14.5 % Platelet Count 373 130-400 10^3/uL Mean Platelet Volume 10.2 7.4-10.4 FL Sodium Level 138 135-145 MMOL/L Potassium Level 3.8 3.6-5.0 MMOL/L Chloride Level 101 98-107 MMOL/L Carbon Dioxide Level 14 L 21-32 MMOL/L Anion Gap 23 H 5-14 MMOL/L Blood Urea Nitrogen 8 7-18 MG/DL Creatinine 0.60 0.60-1.30 MG/DL Estimat Glomerular Filtration Rate > 60 BUN/Creatinine Ratio 13 Glucose Level 119 H 70-105 MG/DL Calcium Level 9.5 8.5-10.1 MG/DL Corrected Calcium 9.3 8.5-10.1 MG/DL Total Bilirubin 0.2 0.1-1.0 MG/DL Aspartate Amino Transf (AST/SGOT) 16 5-34 U/L Alanine Aminotransferase (ALT/SGPT) 21 0-55 U/L Alkaline Phosphatase 67 40-136 U/L Total Protein 7.4 6.4-8.2 GM/DL Albumin 4.2 3.2-4.5 GM/DL Lipase 31 8-78 U/L Urine Color YELLOW Urine Clarity CLEAR Urine pH 6.0 5-9 Urine Specific [place] >=1.030 1.016-1.022 Urine Protein NEGATIVE NEGATIVE Urine Glucose (UA) NEGATIVE NEGATIVE Urine Ketones NEGATIVE NEGATIVE Urine Nitrite NEGATIVE NEGATIVE Urine Bilirubin NEGATIVE NEGATIVE Urine Urobilinogen 0.2 NORMAL MG/DL Urine Leukocyte Esterase NEGATIVE NEGATIVE Urine RBC (Auto) NEGATIVE NEGATIVE Urine Test NEGATIVE NEGATIVE My Orders Orders - JESSICA ZAPATA DO Urinalysis Dipstick Only (01/16/19 03:01) Urine Culture (01/16/19 03:01) Hcg,Qualitative Urine (01/16/19 03:01) Cbc No Diff (01/16/19 03:06) Comprehensive Metabolic Panel (01/16/19 03:06) Lipase (01/16/19 03:06) Ct Abd/Pelv W (Appendicitis) (01/16/19 03:06) Hydromorphone Injection (Dilaudid Inject (01/16/19 03:06) Ns Iv 1000 Ml (Sodium Chloride 0.9%) (01/16/19 03:06) Ondansetron Injection (Zofran Injectio (01/16/19 03:06) Iohexol Injection (Omnipaque 350 Mg/Ml 1 (01/16/19 05:00) Received Contrast (Contrast Received) (01/16/19 05:00) Ns (Ivpb) (Sodium Chloride 0.9% Ivpb Bag (01/16/19 05:00) Iohexol Injection (Omnipaque 350 Mg/Ml 1 (01/16/19 05:00) Received Contrast (Contrast Received) (01/16/19 05:00) Metronidazole 500mg/100ml Ivpb (Flagyl 5 (01/16/19 05:55) Ciprofloxacin Iv 400mg/200ml (Cipro Iv S (01/16/19 06:00) Medications Given in ED Current Medications Medications Dose Ordered Sig/Marnie Route Start Time Stop Time Status Last Admin Dose Admin Iohexol 100 ml ONCE ONCE IV 01/16/19 05:00 01/16/19 05:01 DC 01/16/19 04:52 100 ML Sodium Chloride 50 ml ONCE ONCE IV 01/16/19 05:00 01/16/19 05:01 DC 01/16/19 04:52 50 ML Vital Signs/I&O 01/16/19 03:06 Temp 98.3 Pulse 92 Resp 18 B/P (MAP) 132/85 (101) Pulse Ox 100 O2 Delivery Room Air Progress Progress Note #1: Progress Note Patient has a history of diverticulitis and states that this feels similar, alternatively ovarian torsion or ruptured ovarian cyst, appendicitis, bowel obstruction are considerations. We will obtain CT of the abdomen and pelvis to rule these out. We will check a urinalysis, urine culture, hCG, basic labs. We will treat patient symptomatically and will continue to monitor. Progress Note #2: Progress Note Given possible perforation on CT I will treat patient with IV antibiotics and we 'll transfer for surgical consult. Patient is agreeable with plan. Departure Impression Primary Impression: Diverticulitis of intestine Disposition: [facility]FER [facility] Condition: Stable Transfer Time Spoke to Accepting Phy: 06:00 Transfer Progress Notes Accepted by Dr Cornejo at [facility] Method of Transfer: EMS Departure-Patient Inst. Referrals: TYRA WALKER MD (PCP/Family) Primary Care Physician JESSICA ZAPATA DO Jan 16, 2019 03:11
[2019-01-16 03:38] LABS: HEMOGLOBIN 13.5 G/DL (11.5-16.0); MEAN PLATELET VOLUME 10.2 FL (7.4-10.4); RED CELL DISTRIBUTION WIDTH 13.3 % (10.0-14.5)
[2019-01-16 04:01] LABS: ALANINE AMINOTRANSFERASE 21 U/L (0-55); ALKALINE PHOSPHATASE 67 U/L (40-136); BILIRUBIN,TOTAL 0.2 MG/DL (0.1-1.0); BUN/CREATININE RATIO 13; CALCIUM 9.5 MG/DL (8.5-10.1); CARBON DIOXIDE 14 MMOL/L (21-32); CHLORIDE 101 MMOL/L (98-107); GFR ESTIMATED > 60; GLUCOSE 119 MG/DL (70-105); POTASSIUM 3.8 MMOL/L (3.6-5.0); SODIUM 138 MMOL/L (135-145); TOTAL PROTEIN 7.4 GM/DL (6.4-8.2)
[2019-01-16 04:02] LABS: ALBUMIN 4.2 GM/DL (3.2-4.5); LIPASE 31 U/L (8-78)
[2019-01-16 04:30] VITALS: BP 104/60
[2019-01-16 04:39] LABS: HCG,QUALITATIVE URINE NEGATIVE (NEGATIVE)
[2019-01-16 04:40] LABS: BILIRUBIN,URINE NEGATIVE (NEGATIVE); CLARITY,URINE CLEAR; COLOR,URINE YELLOW; GLUCOSE, URINE (UA) NEGATIVE (NEGATIVE); KETONES,URINE NEGATIVE (NEGATIVE); LEUKOCYTE ESTERASE ,URINE NEGATIVE (NEGATIVE); NITRITE,URINE NEGATIVE (NEGATIVE); PROTEIN,URINE NEGATIVE (NEGATIVE); UROBILINOGEN,URINE 0.2 MG/DL (NORMAL)
[2019-01-16] MEDS ORDERED: RECEIVED CONTRAST 20 ML VIAL IV SCH ×2 (05:00)
[2019-01-16] MEDS ORDERED: IOHEXOL 350 MG/ML 100 ML (OMNIPAQUE 350) VIAL IV ONE ×2 (05:00)
[2019-01-16] MEDS ORDERED: NS 50 ML (IVPB) BAG IV ONE (05:00)
[2019-01-16] MEDS ORDERED: metroNIDAZOLE 500MG/100ML IVPB 100 ML IV STA (05:55)
[2019-01-16] MEDS ORDERED: CIPROFLOXACIN IV 400MG/200ML 200 ML IV ONE (06:00)
[2019-01-16 06:30] VITALS: BP 116/73
[2019-01-16] MEDS ORDERED: HYDROmorphone 2 MG/ML VIAL (DILAUDID) IV ONE (06:45)
--- NOTE | 2019-01-16 06:48 | Diagnostic Imaging Report ---
PROCEDURE: CT abdomen and pelvis with contrast, rule out appendicitis. TECHNIQUE: Multiple contiguous axial images were obtained through the abdomen and pelvis after the administration of intravenous contrast. INDICATION: Generalized abdominal pain, lower pelvic pain, appendicitis. COMPARISON: 12/18/2018 FINDINGS: Lung bases are clear. The gallbladder is surgically absent. Solid organs, vascular structures and small bowel have a normal appearance. The appendix is normal. There are a few scattered diverticula of the sigmoid colon, which appear stable compared to the previous examination. There is mild amount of free fluid in the pelvis and cul-de-sac. However, this appears to be ovarian in nature. Doubtful this represents diverticulitis. There is no abscess or free air. Distal ureters and urinary bladder are normal. Osseous structures are age-appropriate. IMPRESSION: 1. Diverticulosis of the sigmoid colon without overt diverticulitis. 2. Mild free fluid in the pelvis and cul-de-sac likely related to ovarian follicular rupture. 3. Normal appendix. Dictated by: Dictated on workstation # [id number]
--- OUTSIDE RECORDS SUMMARY | 2019-01-16 07:56 | XMS REPORT | Continuity of Care Document ---
Author Author [facility] Organization [facility] Address Unknown Phone Unavailable Allergies Active Description Code Type Severity Reaction Onset Reported/Identified Relationship to Patient Clinical Status Yes No Known Drug Allergies [id number] Drug Allergy Unknown N/A 02/12/2016 Medications There [...] NICOTINE DEPENDENCE, CIGARETTES, UNCOMPL 08/16/2018 BRUEGGEMANN MD, ELVIRA T Ot F32.9 MAJOR DEPRESSIVE DISORDER, SINGLE [...] APRN Ot R10.13 EPIGASTRIC PAIN 12/20/2018 SHANELL HANLEY APRN Ot Z80.0 FAMILY HISTORY OF MALIGNANT NEOPLASM OF 12/20/2018 SHANELL HANLEY APRN Ot Z82.49 FAMILY HX OF ISCHEM HEART DIS AND OTH DI 12/20/2018 SHANELL HANLEY APRN Ot Z87.19 PERSONAL HISTORY OF OTHER DISEASES OF TH 12/20/2018 SHANELL HANLEY ARCHITECTURE INTERN Ot Z97.5 PRESENCE OF (INTRAUTERINE) CONTRACEPTIVE 12/20/2018 SHANELL HANLEY APRN Ot Z98.890 OTHER SPECIFIED POSTPROCEDURAL STATES 12/24/2018 SHANELL HANLEY APRN Ot F17.210 NICOTINE DEPENDENCE, CIGARETTES, UNCOMPL 12/24/2018 SHANELL HANLEY APRN Ot F32.9 MAJOR DEPRESSIVE DISORDER, SINGLE EPISOD 12/24/2018 SHANELL HANELY ARCHITECTURE INTERN Ot F41.9 ANXIETY DISORDER, UNSPECIFIED 12/24/2018 SHANELL [...] volume measurement 10.[address] [[address] [facility]] 7.4-10.4 Automated blood neutrophils/100 leukocytes 54 % [...] FOR INFLUENZA A AND B ANTIGENS BY [facility] Complete blood count (CBC) with [...] Status Pt. Type Provider Facility Loc./Unit Complaint [id number] 12/18/2018 19:32:00 12/18/2018 21:38:00 DIS Outpatient SHANELL HANLEY APRN [facility] ER VOMITTING BLOOD [id number] 08/14/2018 21:08:00 08/15/2018 00:57:00 DIS Emergency ELVIRA BENITEZ MD [facility] ER CP [id number] 10/24/2017 21:17:00 10/24/2017 22:35:00 DIS Emergency CAROL PLASENCIA DO [facility] ER VAG PAIN W BLEEDING [id number] 02/12/2016 10:27:00 02/12/2016 15:30:00 DIS Outpatient CAMRYN CORONA MD [facility] SDC ABD PAIN,N/V [id number] 02/11/2016 11:17:00 02/11/2016 13:54:00 DIS Outpatient CAMRYN COORNA MD [facility] PREOP ABD PAIN,N/V [id number] 02/09/2016 11:09:00 Document Registration [id number] 02/07/2016 16:24:00 ACT Inpatient YOON MAHER DO [facility] 4TH HYPOLKALEMIA,NAUSEA,VOMITING,ABD PAIN
[2019-01-16] MEDS ORDERED: HYDROmorphone 2 MG/ML VIAL (DILAUDID) IV PRN (08:30)
[2019-01-16] MEDS ORDERED: ONDANSETRON 4 MG/2 ML (SDV) Z0FRAN IVP PRN (08:30)
--- NOTE | 2019-01-16 09:57 | NUR ---
Pt reports pain is resolved at this time.
[2019-01-16 12:40] VITALS: BP 118/69
--- NOTE | 2019-01-16 12:41 | NUR ---
Pharmacy called for med rec.
[2019-01-16] MEDS ORDERED: CATHETER FLUSH 10 ML SYR IV PRN (12:45)
[2019-01-16] MEDS ORDERED: ONDANSETRON 4 MG/2 ML (SDV) Z0FRAN IV PRN (12:45)
[2019-01-16] MEDS ORDERED: morphine INJ 4 MG/ML 1 ML (VIAL/SYRINGE) IV PRN (12:45)
[2019-01-16] MEDS: D5 1/2 NS 1000 ML IV SOLUTION 1,000 ML IV SCH (12:49)
--- NOTE | 2019-01-16 12:50 | History & Physical-Hospitalist ---
History of Present Illness HPI/Chief Complaint CC: Acute diverticulitis HPI: This is a 33-year-old white female with known history of diverticulitis years ago status post colonoscopy that she thinks was by Dr. Lora who presents to the [place] ER with left lower quadrant abdominal pain in addition to stressed over her 14-year-old son who was transferred to [facility]. She is found to have acute diverticulitis of the left lower quadrant questionable perforation with elevated white count of 15,000 in need of nothing by mouth status IV antibiotics IV fluids and supportive care. I spoke with Dr. Campbell who is gracious enough to accept the consultation. Patient is already asking if she can go downstairs and smoke of which I told her that that would not be a good idea. She declines nicotine patch. Source: patient, RN/MD Exam Limitations: no limitations Date Seen 01/16/19 Time Seen by a Provider: 12:40 Attending Physician Stephanie Cornejo DO PCP Filiberto Roblero MD Referring Physician Date of Admission Jan 16, 2019 at 07:52 Home Medications & Allergies Home Medications Reviewed patient Home Medication Reconciliation performed by pharmacy medication reconciliations systems testing laboratory technician and/or nursing. Patients Allergies have been reviewed. Allergies Allergies Coded Allergies No Known Drug Allergies (Verified02/12/16) Past Myameyk-Udveej-Qvthxl Hx Past Med/Social Hx: Reviewed Nursing Past Med/Soc Hx, Reviewed and Corrections made Patient Social History Employed/Student: employed ([employer] 5 yrs) Alcohol Use: Denies Use Recreational Drug Use: Yes Drug of Choice: marijuana Smoking Status: Current Everyday Smoker Type Used: Cigarettes 2nd Hand Smoke Exposure: No Recent Foreign Travel: No Contact w/other who traveled: No Recent Hopitalizations: No Recent Infectious Disease Expo: No Immunizations Up To Date Tetanus Booster (TDap): Unknown Pediatric: Yes Seasonal Allergies Seasonal Allergies: No Past Medical History Surgeries: Abdominal, Section Currently Using CPAP: No Currently Using BIPAP: No 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: No 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 IUD Gastrointestinal: Diverticulosis Loss of Vision: Denies Hearing Impairment: Denies Psychosocial: Anxiety, Depression History of Blood Disorders: No Adverse Reaction to Blood Powell: No Family History Arthritis 19 MOTHER GRANDMA-MATERAL Colon cancer GRANDP-MATERANL Completed stroke 19 FATHER Congenital disease 19 FATHER Congenital heart disease 19 FATHER Diabetes mellitus 19 FATHER GRANDMA-MATERAL Hypercholesterolemia Myocardial infarction 19 FATHER GRANDP-MATERANL Heart Disease, Cancer, Diabetes Review of Systems Constitutional: see HPI EENTM: no symptoms reported Respiratory: no symptoms reported Cardiovascular: no symptoms reported Gastrointestinal: abdominal pain (LLQ) 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: no symptoms reported Musculoskeletal: no symptoms reported Skin: no symptoms reported Psychiatric/Neurological: No Symptoms Reported All Other Systems Reviewed Negative Unless Noted: Yes Physical Exam Physical Exam Vital Signs Vital Signs - First Documented 01/16/19 03:06 Temp 98.3 Pulse 92 Resp 18 B/P (MAP) 132/85 (101) Pulse Ox 100 O2 Delivery Room Air Capillary Refill : Less Than 3 Seconds Height, Weight, BMI Height: 5'3.00" Weight: 190lbs. 6.4oz. 86.943511sa; 30.2 BMI Method:Stated General Appearance: WD/WN, Mild Distress, Obese Eyes: Right Eye Normal Inspection, Right Eye PERRL HEENT: PERRL/EOMI, Normal ENT Inspection, Pharynx Normal, Moist Mucous Membranes Neck: Full Range of Motion, Normal Inspection, Non Tender Respiratory: Chest Non Tender, Lungs Clear, Normal Breath Sounds, No Accessory Muscle Use, No Respiratory Distress Cardiovascular: Regular Rate, Rhythm, No Edema, No Gallop, No JVD, No Murmur, Normal Peripheral Pulses Gastrointestinal: Normal Bowel Sounds, No Organomegaly, No Pulsatile Mass, Soft , Tenderness Back: Normal Inspection, No CVA Tenderness, No Vertebral Tenderness Extremity: Normal Capillary Refill, Normal Inspection, Normal Range of Motion, Non Tender, No Calf Tenderness, No Pedal Edema Neurologic/Psychiatric: Alert, Oriented x3, No Motor/Sensory Deficits, Normal Mood/Affect Skin: Normal Color, Warm/Dry Lymphatic: No Adenopathy Results Results/Procedures Labs Laboratory Tests 01/16/19 03:25 Patient resulted labs reviewed. Assessment/Plan Admission Diagnosis Assessment: Acute diverticulitis question will perforation micro-type Smoker History of diverticulosis colonoscopy years ago Plan: IVF IV abx Dr Campbell consultation DVT Px Admission Status: Inpatient Order (span 2 midnights) Reason for Inpatient Admission: Acute diverticulitis will require 3 days of hospital stay Diagnosis/Problems Diagnosis/Problems (1) Diverticulitis of intestine Status: Acute Qualifiers: Diverticulitis site: large intestine Diverticulitis bleeding: unspecified bleeding status Diverticulitis complication: unspecified complication status Qualified Codes: K57.32 - Diverticulitis of large intestine without perforation or abscess without bleeding (2) Smoker Status: Chronic (3) Leukocytosis Status: Acute Qualifiers: Leukocytosis type: leukemoid reaction Qualified Codes: D72.823 - Leukemoid reaction (4) History of diverticulitis Status: Chronic (5) Nausea & vomiting Status: Acute Qualifiers: Vomiting Intractability: unspecified (6) Generalized abdominal pain Status: Acute YOON MAHER DO Jan 16, 2019 12:50
[2019-01-16] MEDS ORDERED: FLU QUADRIvalent (5+ YOA) 2018-2019 (AFLURIA) 0.5 ML IM ONE (13:30)
--- NOTE | 2019-01-16 14:00 | Consultation ---
History of Present Illness History of Present Illness Patient Consulted On(trudi/time) 01/16/19 13:54 Time Seen by Provider: 13:20 History of Present Illness Surgery asked to consult regarding LLQ pain and possible perforated diverticulitis. HPI per IM: This is a 33-year-old white female with known history of diverticulitis years ago status post colonoscopy that she thinks was by Dr. Lora who presents to the [place] ER with left lower quadrant abdominal pain in addition to stressed over her 14-year-old son who was transferred to [facility]. She is found to have acute diverticulitis of the left lower quadrant questionable perforation with elevated white count of 15,000 in need of nothing by mouth status IV antibiotics IV fluids and supportive care. I spoke with Dr. Phillips who is gracious enough to accept the consultation. Patient is already asking if she can go downstairs and smoke of which I told her that that would not be a good idea. She declines nicotine patch. When I spoke to pt today, she states the pain started early this morning. Sharp stabbing pain, rated as 8 out of 10 and nothing seemed to make pain better. She thought it was same pain as she had a few years back, but that time she just took ABX and did not need to go into hospital. She also thinks she has hx of H. Pylori. Allergies and Home Medications Allergies Coded Allergies: No Known Drug Allergies (Verified , 02/12/16) Home Medications Omeprazole 20 Mg Capsule.dr, 20 MG PO BID Prescribed by: ELVIRA NICOLE on 08/15/18 0031 Pantoprazole Sodium 40 Mg Tablet., 40 MG PO DAILY Prescribed by: CAMRYN LORA on 02/12/16 1432 Pantoprazole Sodium 40 Mg Granpkt., 40 MG PO BID Prescribed by: SHANELL HANLEY on 12/18/182122 Potassium Chloride 10 Meq Tablet.er, 10 MEQ PO BID Prescribed by: YOON MAHER on 02/08/16 0931 Sucralfate 1 Gm Tablet, 1 GM PO QID Prescribed by: CAMRYN LORA on 02/12/16 1432 Patient Home Medication List Home Medication List Reviewed: Yes Past Qzhieyp-Szgdcc-Ratjzk Hx Patient Social History Alcohol Use: Denies Use Recreational Drug Use: Yes Drug of Choice: marijuana Smoking Status: Current Everyday Smoker Type Used: Cigarettes 2nd Hand Smoke Exposure: No Recent Foreign Travel: No Contact w/Someone Who Travel: No Recent Infectious Disease Expo: No Recent Hopitalizations: No Immunizations Up To Date Tetanus Booster (TDap): Unknown PED Vaccines UTD: Yes Seasonal Allergies Seasonal Allergies: No Surgeries History of Surgeries: Yes Surgeries: Abdominal, Section Respiratory History of Respiratory Disorde: No Cardiovascular History of Cardiac Disorders: No Neurological History of Neurological Disord: No 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 System Hx 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 Disorders: No 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 History of 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 Disor: No Gastrointestinal History of Gastrointestinal Di: Yes Gastrointestinal Disorders: Diverticulosis Musculoskeletal History of Musculoskeletal Dis: No Endocrine History of Endocrine Disorders: No HEENT History of HEENT Disorders: No Loss of Vision: Denies Hearing Impairment: Denies Cancer History of Cancer: No Psychosocial History of Psychiatric Problem: No Behavioral Health Disorders: Anxiety, Depression Integumentary History of Skin or Integumenta: No Blood Transfusions History of Blood Disorders: No Adverse Reaction to a Blood Tr: No Family Medical History Significant Family History: Heart Disease, Cancer, Diabetes Family Medial History: Arthritis 19 MOTHER GRANDMA-MATERAL Colon cancer GRANDP-MATERANL Completed stroke 19 FATHER Congenital disease 19 FATHER Congenital heart disease 19 FATHER Diabetes mellitus 19 FATHER GRANDMA-MATERAL Hypercholesterolemia Myocardial infarction 19 FATHER GRANDP-MATERANL Review of Systems-General Constitutional: No chills, No diaphoresis EENTM: No eye pain, No mouth pain, No mouth swelling, No epistaxis Respiratory: No cough, No dyspnea on exertion, No hemoptysis Cardiovascular: No chest pain, No edema, No palpitations Gastrointestinal: LLQ; No diarrhea, No hematemesis, No jaundice; nausea, vomiting 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: No dysuria, No frequency, No hematuria Musculoskeletal: No back pain, No joint pain, No joint swelling, No muscle pain Skin: No change in color, No change in hair/nails Psychiatric/Neurological: Denies Anxiety, Denies Depressed, Denies Seizure, Denies Tremors Other pt denies any abnormal bleeding or bruising, no heat or cold intolerance Physical Exam-General Problems Physical Exam Vital Signs Vital Signs - First Documented 01/16/19 03:06 Temp 98.3 Pulse 92 Resp 18 B/P (MAP) 132/85 (101) Pulse Ox 100 O2 Delivery Room Air Capillary Refill : Less Than 3 Seconds General Appearance: WD/WN, mild distress Eyes: Bilateral Eye PERRL, Bilateral Eye EOMI HEENT: pharynx normal; No scleral icterus (R), No scleral icterus (L) Neck: non-tender, full range of motion, supple Respiratory: chest non-tender, lungs clear, normal breath sounds, no respiratory distress, no accessory muscle use Cardiovascular: regular rate, rhythm, no murmur Gastrointestinal: normal bowel sounds, soft, no organomegaly, no pulsatile mass , tenderness (LLQ and suprapubic), hernia (small UH) Back: no CVA tenderness, no vertebral tenderness Extremities: no pedal edema, no calf tenderness, normal capillary refill Neurologic/Psychiatric: employment coordinator II-XII nml as tested, no motor/sensory deficits, alert, normal mood/affect, oriented x 3 Skin: normal color, warm/dry Lymphatic: no adenopathy (neck, axilla or groin) Data Review Labs Laboratory Tests 01/16/19 03:25: White Blood Count 15.0H, Red Blood Count 4.52, Hemoglobin 13.5, Hematocrit 41, Mean Corpuscular Volume 91, Mean Corpuscular Hemoglobin 30, Mean Corpuscular Hemoglobin Concent 33, Red Cell Distribution Width 13.3, Platelet Count 373, Mean Platelet Volume 10.2, Sodium Level 138, Potassium Level 3.8, Chloride Level 101, Carbon Dioxide Level 14L, Anion Gap 23H, Blood Urea Nitrogen 8, Creatinine 0.60, Estimat Glomerular Filtration Rate > 60, BUN/Creatinine Ratio 13, Glucose Level 119H, Calcium Level 9.5, Corrected Calcium 9.3, Total Bilirubin 0.2, Aspartate Amino Transf (AST/SGOT) 16, Alanine Aminotransferase ( ALT/SGPT) 21, Alkaline Phosphatase 67, Total Protein 7.4, Albumin 4.2, Lipase 31 01/16/19 04:20: Urine Color YELLOW, Urine Clarity CLEAR, Urine pH 6.0, Urine Specific [place] >= 1.030, Urine Protein NEGATIVE, Urine Glucose (UA) NEGATIVE, Urine Ketones NEGATIVE, Urine Nitrite NEGATIVE, Urine Bilirubin NEGATIVE, Urine Urobilinogen 0.2, Urine Leukocyte Esterase NEGATIVE, Urine RBC (Auto) NEGATIVE, Urine Test NEGATIVE Assessment/Plan Assessment/Plan Assessment/Plan LLQ pain R/O Diverticulitis vs Ruptured Ovarian Cyst Diverticulosis Elevated WBC I reviewed CT from today and the 2 older CT's (last month and 2016); I agree with Radiologist and believe pt has ruptured ovarian cyst. She does have an elevated WBC, but this can be due to a ruptured cyst. There is no inflammation around Sigmoid colon, just fluid in pelvis. I would keep npo until tomorrow, recheck labs, probably can stop ABX today or tomorrow. Monitor pt; I expect her abdominal pain to improve. I told her it was ok to go down 2 times per day to smoke. I think the fact that she wants to get up and move around are good signs. She states that the colonoscopy a few years ago showed nothing else besides the diverticula. KAMRAN PHILLIPS DO Jan 16, 2019 14:00
--- NOTE | 2019-01-16 14:19 | NUR ---
PATIENT STATES SHE DOES NOT TAKE ANY MEDICATIONS, OTC OR PRESCRIPTION.
[2019-01-16] MEDS ORDERED: ACETAMINOPHEN 325 MG TABLET ONE (14:24)
[2019-01-16] MEDS: ACETAMINOPHEN 325 MG TABLET PO PRN (14:29)
[2019-01-16] MEDS: morphine INJ 4 MG/ML 1 ML (VIAL/SYRINGE) IVP PRN ×4 (15:41→23:07)
[2019-01-16] MEDS: ONDANSETRON 4 MG/2 ML (SDV) Z0FRAN IVP PRN ×2 (15:41→21:18)
[2019-01-16 16:35] VITALS: BP 121/85
[2019-01-16 19:25] VITALS: BP 113/70
[2019-01-16 23:00] VITALS: BP 103/55
[2019-01-17] MEDS: D5 1/2 NS 1000 ML IV SOLUTION 1,000 ML IV SCH ×2 (01:48→06:47)
[2019-01-17] MEDS: morphine INJ 4 MG/ML 1 ML (VIAL/SYRINGE) IVP PRN ×4 (01:48→09:59)
[2019-01-17 04:06] VITALS: BP 112/64
[2019-01-17] MEDS: ONDANSETRON 4 MG/2 ML (SDV) Z0FRAN IVP PRN (04:13)
[2019-01-17 04:23] LABS: BASOPHILS # (AUTO) 0.1 10^3/uL (0.0-0.1); BASOPHILS % (AUTO) 1 % (0-10); EOSINOPHILS # (AUTO) 0.4 10^3/uL (0.0-0.3); EOSINOPHILS % (AUTO) 5 % (0-10); HEMATOCRIT 40 % (35-52); HEMOGLOBIN 12.9 G/DL (11.5-16.0); LYMPHOCYTES # (AUTO) 2.7 X 10^3 (1.0-4.0); LYMPHOCYTES % (AUTO) 29 % (12-44); MEAN CORPUSCULAR HEMOGLOBIN 30 PG (25-34); MEAN CORPUSCULAR HGB CONC 33 G/DL (32-36); MEAN CORPUSCULAR VOLUME 92 FL (80-99); MEAN PLATELET VOLUME 10.7 FL (7.4-10.4); MONOCYTES # (AUTO) 0.6 X 10^3 (0.0-1.0); MONOCYTES % (AUTO) 6 % (0-12); NEUTROPHILS # (AUTO) 5.5 X 10^3 (1.8-7.8); NEUTROPHILS % (AUTO) 60 % (42-75); PLATELET COUNT 332 10^3/uL (130-400); RED CELL DISTRIBUTION WIDTH 13.8 % (10.0-14.5); WHITE BLOOD COUNT 9.2 10^3/uL (4.3-11.0)
[2019-01-17 04:48] LABS: ALANINE AMINOTRANSFERASE 22 U/L (0-55); ALBUMIN 3.7 GM/DL (3.2-4.5); ALKALINE PHOSPHATASE 55 U/L (40-136); BILIRUBIN,TOTAL 0.4 MG/DL (0.1-1.0); BUN/CREATININE RATIO 7; CALCIUM 8.5 MG/DL (8.5-10.1); CARBON DIOXIDE 22 MMOL/L (21-32); CHLORIDE 106 MMOL/L (98-107); CREATININE SERUM 0.67 MG/DL (0.60-1.30); GFR ESTIMATED > 60; GLUCOSE 88 MG/DL (70-105); POTASSIUM 3.8 MMOL/L (3.6-5.0); SODIUM 139 MMOL/L (135-145); TOTAL PROTEIN 6.6 GM/DL (6.4-8.2)
[2019-01-17] MEDS: ACETAMINOPHEN 325 MG TABLET PO PRN (07:36)
[2019-01-17 08:00] VITALS: BP 118/67
--- NOTE | 2019-01-17 11:20 | Discharge Summary-Hospitalist ---
Diagnosis/Chief Complaint Date of Admission Jan 16, 2019 at 07:52 Date of Discharge Discharge Date: Jan 17, 2019 Admission Diagnosis Assessment: Acute diverticulitis question will perforation micro-type Smoker History of diverticulosis colonoscopy years ago Plan: IVF IV abx Dr Campbell consultation DVT Px Discharge Diagnosis (1) Diverticulitis of intestine Status: Acute (2) Smoker Status: Chronic (3) Leukocytosis Status: Resolved (4) History of diverticulitis Status: Chronic (5) Nausea & vomiting Status: Acute (6) Generalized abdominal pain Status: Acute Discharge Summary Discharge Physical Exam Allergies: Coded Allergies: No Known Drug Allergies (Verified , 02/12/16) Vitals & I&Os Vital Signs Date Time Temp Pulse Resp B/P (MAP) Pulse Ox O2 Delivery O2 Flow Rate FiO2 01/17/19 14:00 88 18 111/58 99 Room Air 01/17/19 12:00 98.0 General Appearance: No Apparent Distress, WD/WN, Chronically ill Respiratory: Chest Non Tender, Lungs Clear, Normal Breath Sounds, No Accessory Muscle Use, No Respiratory Distress Cardiovascular: Regular Rate, Rhythm, No Edema, No Gallop, No JVD, No Murmur, Normal Peripheral Pulses Gastrointestinal: Non Tender, Soft Neurologic/Psychiatric: Alert, Oriented x3, No Motor/Sensory Deficits, Normal Mood/Affect Hospital Course Was the Problem List Reviewed?: Yes Hospital Course: Pt had a brief hospital course, she was admitted after transfer from [facility] due to left lower quadrant acute diverticulitis. Pt was empirically placed on IV antibiotics placed NPO status and supportive care and Dr. Campbell provided expertise with general surgery consultation. Pt was doing much better, having minimal pain, was able to eat a regular diet and was agreeable for discharge under Dr. Campbell's discharge instructions. Labs (last 24 hrs) Laboratory Tests 01/17/19 04:00: White Blood Count 9.2, Red Blood Count 4.31L, Hemoglobin 12.9, Hematocrit 40, Mean Corpuscular Volume 92, Mean Corpuscular Hemoglobin 30, Mean Corpuscular Hemoglobin Concent 33, Red Cell Distribution Width 13.8, Platelet Count 332, Mean Platelet Volume 10.7H, Neutrophils (%) (Auto) 60, Lymphocytes (%) (Auto) 29 , Monocytes (%) (Auto) 6, Eosinophils (%) (Auto) 5, Basophils (%) (Auto) 1, Neutrophils # (Auto) 5.5, Lymphocytes # (Auto) 2.7, Monocytes # (Auto) 0.6, Eosinophils # (Auto) 0.4H, Basophils # (Auto) 0.1, Sodium Level 139, Potassium Level 3.8, Chloride Level 106, Carbon Dioxide Level 22, Anion Gap 11, Blood Urea Nitrogen 5L, Creatinine 0.67, Estimat Glomerular Filtration Rate > 60, BUN/ Creatinine Ratio 7, Glucose Level 88, Calcium Level 8.5, Corrected Calcium 8.7, Total Bilirubin 0.4, Aspartate Amino Transf (AST/SGOT) 22, Alanine Aminotransferase (ALT/SGPT) 22, Alkaline Phosphatase 55, Total Protein 6.6, Albumin 3.7 Microbiology 01/16/19 Urine Culture - Final, Complete NO GROWTH Patient resulted labs reviewed. Pending Labs Discussion & Recommendations Discharge Planning: <30 minutes discharge planning Discharge Home Medications: Active Scripts Active No Active Prescriptions or Reported Medications Instructions to patient/family Please see electronic discharge instructions given to patient. Clinical Quality Measures DVT/VTE Risk/Contraindication: Risk Factor Score Per Nursin RFS Level Per Nursing on Admit: 3=High Problem Qualifiers (1) Diverticulitis of intestine: Diverticulitis site: large intestine Diverticulitis bleeding: unspecified bleeding status Diverticulitis complication: unspecified complication status Qualified Codes: K57.32 - Diverticulitis of large intestine without perforation or abscess without bleeding (2) Leukocytosis: Leukocytosis type: leukemoid reaction Qualified Codes: D72.823 - Leukemoid reaction (3) Nausea & vomiting: Vomiting Intractability: unspecified YOON MAHER DO Jan 17, 2019 11:20
[2019-01-17 12:00] VITALS: BP 111/58
--- NOTE | 2019-01-17 12:19 | Progress Note ---
Subjective Time Seen by a Provider: 12:06 Subjective/Events-last exam Pt seen and examined, states the pain is gone and she feels great. Ambulating without difficulty. Review of Systems General: No Chills, No Night Sweats Pulmonary: No Dyspnea, No Cough Cardiovascular: No: Chest Pain, Palpitations Gastrointestinal: No: Nausea, Vomiting, Abdominal Pain Objective Exam Vital Signs Date Time Temp Pulse Resp B/P (MAP) Pulse Ox O2 Delivery O2 Flow Rate FiO2 01/17/19 12:00 98.0 88 18 111/58 (75) 99 Room Air 01/17/19 08:00 98.8 85 18 118/67 (84) 98 Room Air 01/17/19 08:00 Room Air 01/17/19 04:06 98.0 80 20 112/64 (80) 98 Room Air 01/16/19 23:00 97.8 81 18 103/55 (71) 95 Room Air 01/16/19 20:00 Room Air 01/16/19 19:25 98.6 88 18 113/70 (84) 100 Room Air 01/16/19 16:35 97.8 82 18 121/85 (97) 99 Room Air 01/16/19 12:40 Room Air 01/16/19 12:40 98.3 90 14 118/69 98 Room Air I & O 01/17/19 07:00 Intake Total 1300 ml Output Total 1250 ml Balance 50 ml Capillary Refill : Less Than 3 Seconds General Appearance: No Apparent Distress, WD/WN, Obese HEENT: PERRL/EOMI, Moist Mucous Membranes Neck: Non Tender Respiratory: Chest Non Tender, Lungs Clear, Normal Breath Sounds, No Accessory Muscle Use, No Respiratory Distress Cardiovascular: Regular Rate, Rhythm, No Edema, No Murmur Gastrointestinal: normal bowel sounds, non tender, soft, no organomegaly, no pulsatile mass, hernia (small UH) Neurologic/Psychiatric: Alert, Oriented x3, No Motor/Sensory Deficits, Normal Mood/Affect Results Lab Laboratory Tests 01/17/19 04:00: White Blood Count 9.2, Red Blood Count 4.31L, Hemoglobin 12.9, Hematocrit 40, Mean Corpuscular Volume 92, Mean Corpuscular Hemoglobin 30, Mean Corpuscular Hemoglobin Concent 33, Red Cell Distribution Width 13.8, Platelet Count 332, Mean Platelet Volume 10.7H, Neutrophils (%) (Auto) 60, Lymphocytes (%) (Auto) 29 , Monocytes (%) (Auto) 6, Eosinophils (%) (Auto) 5, Basophils (%) (Auto) 1, Neutrophils # (Auto) 5.5, Lymphocytes # (Auto) 2.7, Monocytes # (Auto) 0.6, Eosinophils # (Auto) 0.4H, Basophils # (Auto) 0.1, Sodium Level 139, Potassium Level 3.8, Chloride Level 106, Carbon Dioxide Level 22, Anion Gap 11, Blood Urea Nitrogen 5L, Creatinine 0.67, Estimat Glomerular Filtration Rate > 60, BUN/ Creatinine Ratio 7, Glucose Level 88, Calcium Level 8.5, Corrected Calcium 8.7, Total Bilirubin 0.4, Aspartate Amino Transf (AST/SGOT) 22, Alanine Aminotransferase (ALT/SGPT) 22, Alkaline Phosphatase 55, Total Protein 6.6, Albumin 3.7 Microbiology 01/16/19 Urine Culture - Final, Complete NO GROWTH Assessment/Plan Assessment/Plan Assessment/Plan LLQ pain most likely Ruptured Ovarian Cyst Diverticulosis Plan is to increase diet and send pt home, she does not need ABX. Can f/u in my office if anything changes. Clinical Quality Measures DVT/VTE Risk/Contraindication: Risk Factor Score Per Nursin RFS Level Per Nursing on Admit: 3=High KAMRAN PHILLIPS DO Jan 17, 2019 12:19
[2019-01-17 14:00] VITALS: BP 111/58
--- NOTE | 2019-01-17 14:00 | NUR ---
DISCHARGE INSTRUCTIONS GIVEN TO PATIENT WITH TIME ALLOWED FOR QUESTIONS. IV REMOVED WITH CATHETER TIP INTACT. NO COMPLAINTS OF PAIN AT THIS TIME. PATIENT LEFT AMBULATORY ACCOMPANIED BY MOTHER AND STAFF TO PRIVATE VEHICLE.
== END 2019-01-17 14:00 | disposition home or self-care (01) | DRG 392 ==
LOC: EDUNIT# 02:43 → ER FS 02:45 → 4TH 07:52
PROVIDERS: ADMIT Family Medicine; ATTEND Family Medicine
DX: K57.32 Diverticulitis of large intestine without perforation or abscess without bleeding (principal); N83.02 Follicular cyst of left ovary; F41.9 Anxiety disorder, unspecified; F32.9 Major depressive disorder, single episode, unspecified; F17.210 Nicotine dependence, cigarettes, uncomplicated
CPT/HCPCS: 36415; 74177; 80053; 81002; 83690; 84703; 85025; 85027; 87088

== ENCOUNTER 2019-02-16 20:08 | Emergency (ER) | payer SELFPAY ==
[~2019-02-16] VITALS: Ht 160 cm; Wt 86.2 kg
--- NOTE | 2019-02-16 20:26 | NUR ---
DOCTOR MIAN IN TO SEE THE PATIENT.
--- OUTSIDE RECORDS SUMMARY | 2019-02-16 20:27 | XMS REPORT | Continuity of Care Document ---
Author Organization Unknown Address Unknown Allergies Active Description Code Type Severity Reaction Onset Reported/Identified Relationship to Patient Clinical Status Yes No Known Drug Allergies [id number] Drug Allergy Unknown N/A 02/12/2016 Medications There is no data. Problems Date Dx Coded Attending Type Code Diagnosis Diagnosed By 02/08/2016 YOON MAHER DO Ot E87.6 HYPOKALEMIA 02/08/2016 TRAE MAHER DOI Ot F17.210 NICOTINE DEPENDENCE, CIGARETTES, UNCOMPL 02/08/2016 GUNNAR MOREAU YOON Ot R10.11 RIGHT UPPER QUADRANT PAIN 02/08/2016 TRAE MAHER DOI Ot R11.2 NAUSEA WITH VOMITING, UNSPECIFIED 02/08/2016 TRAE MAHER DOI Ot E87.6 02/08/2016 MAHERMATTIE MOREAU YOON [...] PART UNSP, W/O PERF 02/12/2016 CAMRYN CORONA MD, Ot K64.1 SECOND DEGREE HEMORRHOIDS 02/12/2016 CJ [...] GASTRITIS, UNSPECIFIED, WITHOUT BLEEDING 02/26/2016 CJ LAWRENCE, CMARYN Ot K57.90 DVRTCLOS OF INTEST, PART UNSP, W/O PERF 02/26/2016 CJ LAWRENCE, CAMRYN Schulz K64.1 SECOND DEGREE HEMORRHOIDS 02/26/2016 CJ LAWRENCE, CAMRYN Ot Z80.0 FAMILY HISTORY OF MALIGNANT NEOPLASM OF 10/24/2017 CAROL PLASENCIA DO Ot F17.210 NICOTINE DEPENDENCE, CIGARETTES, UNCOMPL 10/24/2017 CAORL PLASENCIA DO Ot F32.9 MAJOR DEPRESSIVE DISORDER, [...] OTH DI 10/24/2017 LUIS ANGEL MOREAU CAROL Janee Ot Z87.59 PERSONAL HISTORY OF COMP OF PREG, CHLDBR 10/30/2017 LUIS ANGEL MOREAU CAROL K Ot F17.210 NICOTINE DEPENDENCE, CIGARETTES, UNCOMPL 10/30/2017 LUIS ANGEL MOREAU CAROL K Ot F32.9 MAJOR DEPRESSIVE DISORDER, SINGLE EPISOD 10/30/2017 LUIS ANGEL MOREAU CAROL K Ot F41.9 ANXIETY DISORDER, UNSPECIFIED 10/30/2017 LUIS ANGEL MOREAU CAROL Weller Ot N93.8 OTHER SPECIFIED ABNORMAL UTERINE AND VAG 10/30/2017 LUIS ANGEL MOREAU CAROL Weller Ot N99.821 POSTPROC HEMOR OF A SYS ORG FOLLOWING 10/30/2017 LUIS ANGEL DOSANJAYA Janee Ot Z80.9 FAMILY HISTORY OF MALIGNANT NEOPLASM, UN 10/30/2017 LIUS ANGEL DOCAROL Ot Z82.49 FAMILY HX OF [...] F32.9 MAJOR DEPRESSIVE DISORDER, SINGLE EPISOD 08/16/2018 ELI LAWRENCE, ELVIRA Mckoy Ot F41.9 ANXIETY DISORDER, UNSPECIFIED 08/16/2018 ELI LAWRENCE, ELVIRA Mckoy Ot R07.81 PLEURODYNIA 08/16/2018 ELVIRA BENITEZ MD Ot Z80.0 FAMILY HISTORY OF MALIGNANT NEOPLASM OF 08/16/2018 ELVIRA BENITEZ MD Ot Z82.49 FAMILY HX OF ISCHEM HEART DIS AND OTH DI 08/16/2018 ELI LAWRENCE, ELVIRA Mckoy Ot Z87.19 PERSONAL HISTORY OF OTHER DISEASES OF TH 08/16/2018 ELVIRA BENITEZ MD Ot Z98.890 OTHER SPECIFIED POSTPROCEDURAL STATES 12/20/2018 SHANELL HANLEY APRN Ot F17.210 NICOTINE DEPENDENCE, CIGARETTES, UNCOMPL 12/20/2018 SHANELL HANLEY APRN Ot F32.9 MAJOR DEPRESSIVE DISORDER, SINGLE EPISOD 12/20/2018 SHANELL HANLEY APRN Ot F41.9 ANXIETY DISORDER, UNSPECIFIED 12/20/2018 SHANELL HANLEY WIND TURBINE ELECTRICAL ENGINEER Ot K92.0 HEMATEMESIS 12/20/2018 SHANELL HANLEY APRN Ot R10.13 EPIGASTRIC PAIN 12/20/2018 SHANELL HANLEY APRN Ot Z80.0 FAMILY HISTORY OF MALIGNANT NEOPLASM OF 12/20/2018 SHANELL HANLEY WIND TURBINE ELECTRICAL ENGINEER Ot Z82.49 FAMILY HX OF ISCHEM HEART DIS AND OTH DI 12/20/2018 SHANELL HANLEY APRN Ot Z87.19 PERSONAL HISTORY OF OTHER DISEASES OF TH 12/20/2018 SHANELL HANLEY APRN Ot Z97.5 PRESENCE OF (INTRAUTERINE) CONTRACEPTIVE 12/20/2018 SHANELL HANLEY APRN Ot Z98.890 OTHER SPECIFIED POSTPROCEDURAL STATES 12/24/2018 SHANELL HANLEY APRN Ot F17.210 NICOTINE DEPENDENCE, CIGARETTES, UNCOMPL 12/24/2018 SHANELL HANLEY APRN Ot F32.9 MAJOR DEPRESSIVE DISORDER, SINGLE EPISOD 12/24/2018 SHANELL HANLEY APRN Ot F41.9 ANXIETY DISORDER, UNSPECIFIED 12/24/2018 SHANELL [...] APRN Ot Z98.890 OTHER SPECIFIED POSTPROCEDURAL STATES 01/17/2019 NICHOLAS CRISTOBAL DO Ot F17.210 NICOTINE DEPENDENCE, CIGARETTES, UNCOMPL 01/17/2019 NICHOLAS CRISTOBAL DO Ot F32.9 MAJOR DEPRESSIVE DISORDER, SINGLE EPISOD 01/17/2019 NICHOLAS CRISTOBAL DO Ot F41.9 ANXIETY DISORDER, UNSPECIFIED 01/17/2019 NICHOLAS CRISTOBAL DO Ot K57.32 DVTRCLI OF LG INT W/O PERFORATION OR ABS 01/17/2019 NICHOLAS CRISTOBAL DO Ot N83.02 FOLLICULAR CYST OF LEFT OVARY Procedures There is no data. Results Test [...] FOR INFLUENZA A AND B ANTIGENS BY [facility] Complete blood count (CBC) with automated white [...] urinalysis with reflex to culture NO NRG Automated blood complete blood count (hemogram) panel - 01/16/19 03:25 Blood leukocytes automated count (number/volume) 15.0 10*3/uL 4.3-11.0 Blood erythrocytes automated count (number/volume) 4.52 10*6/uL 4.35-5.85 Venous blood hemoglobin measurement (mass/volume) 13.5 g/dL 11.5-16.0 Blood hematocrit (volume fraction) 41 % 35-52 Automated erythrocyte mean corpuscular volume 91 [foz_us] 80-99 Automated erythrocyte mean corpuscular hemoglobin (mass per erythrocyte) 30 pg 25-34 Automated erythrocyte mean corpuscular hemoglobin concentration measurement ( mass/volume) 33 g/dL 32-36 Automated erythrocyte distribution width ratio 13.3 % 10.0-14.5 Automated blood platelet count (count/volume) 373 10*3/uL 130-400 Automated blood platelet mean volume measurement 10.2 [foz_us] 7.4-10.4 Comprehensive metabolic panel - 01/16/19 03:25 Serum or plasma sodium measurement (moles/volume) 138 mmol/L 135-145 Serum or plasma potassium measurement (moles/volume) 3.8 mmol/L 3.6-5.0 Serum or plasma chloride measurement (moles/volume) 101 mmol/L 98-107 Carbon dioxide 14 mmol/L 21-32 Serum or plasma anion gap determination (moles/volume) 23 mmol/L 5-14 Serum or plasma urea nitrogen measurement (mass/volume) 8 mg/dL 7-18 Serum or plasma creatinine measurement (mass/volume) 0.60 mg/dL 0.60-1.30 Serum or plasma urea nitrogen/creatinine mass ratio 13 NRG Serum or plasma creatinine measurement with calculation of estimated glomerular filtration rate > NRG Serum or plasma glucose measurement (mass/volume) 119 mg/dL 70-105 Serum or plasma calcium measurement (mass/volume) 9.5 mg/dL 8.5-10.1 Serum or plasma total bilirubin measurement (mass/volume) 0.2 mg/dL 0.1-1.0 Serum or plasma alkaline phosphatase measurement (enzymatic activity/volume) 67 U/L 40-136 Serum or plasma aspartate aminotransferase measurement (enzymatic activity/ volume) 16 U/L 5-34 Serum or plasma alanine aminotransferase measurement (enzymatic activity/volume ) 21 U/L 0-55 Serum or plasma protein measurement (mass/volume) 7.4 g/dL 6.4-8.2 Serum or plasma albumin measurement (mass/volume) 4.2 g/dL 3.2-4.5 CALCIUM CORRECTED 9.3 mg/dL 8.5-10.1 Lipase - 01/16/19 03:25 Lipase 31 U/L 8-78 Automated dipstick urinalysis - 01/16/19 04:20 Urine color determination YELLOW NRG Urine clarity determination CLEAR NRG Urine pH measurement by test strip 6.0 5-9 Specific gravity of urine by test strip >= 1.016-1.022 Urine protein assay by test strip, semi-quantitative NEGATIVE NEGATIVE Urine glucose detection by automated test strip NEGATIVE NEGATIVE Erythrocytes detection in urine sediment by light microscopy NEGATIVE NEGATIVE Urine ketones detection by automated test strip NEGATIVE NEGATIVE Urine nitrite detection by test strip NEGATIVE NEGATIVE Urine total bilirubin detection by test strip NEGATIVE NEGATIVE Urine urobilinogen measurement by automated test strip (mass/volume) 0.2 mg/dL NORMAL Urine leukocyte esterase detection by dipstick NEGATIVE NEGATIVE Urine beta human chorionic gonadotropin (hCG) measurement - 01/16/19 04:20 Urine beta human chorionic gonadotropin (hCG) measurement NEGATIVE NEGATIVE Bacterial urine culture - 01/16/19 04:20 Bacterial urine culture NG NRG Complete blood count (CBC) with automated white blood cell (WBC) differential - 01/17/19 04:00 Blood leukocytes automated count (number/volume) 9.2 10*3/uL 4.3-11.0 Blood erythrocytes automated count (number/volume) 4.31 10*6/uL 4.35-5.85 Venous blood hemoglobin measurement (mass/volume) 12.9 g/dL 11.5-16.0 Blood hematocrit (volume fraction) 40 % 35-52 Automated erythrocyte mean corpuscular volume 92 [foz_us] 80-99 Automated erythrocyte mean corpuscular hemoglobin (mass per erythrocyte) 30 pg 25-34 Automated erythrocyte mean corpuscular hemoglobin concentration measurement ( mass/volume) 33 g/dL 32-36 Automated erythrocyte distribution width ratio 13.8 % 10.0-14.5 Automated blood platelet count (count/volume) 332 10*3/uL 130-400 Automated blood platelet mean volume measurement 10.7 [foz_us] 7.4-10.4 Automated blood neutrophils/100 leukocytes 60 % 42-75 Automated blood lymphocytes/100 leukocytes 29 % 12-44 Blood monocytes/100 leukocytes 6 % 0-12 Automated blood eosinophils/100 leukocytes 5 % 0-10 Automated blood basophils/100 leukocytes 1 % 0-10 Blood neutrophils automated count (number/volume) 5.5 10*3 1.8-7.8 Blood lymphocytes automated count (number/volume) 2.7 10*3 1.0-4.0 Blood monocytes automated count (number/volume) 0.6 10*3 0.0-1.0 Automated eosinophil count 0.4 10*3/uL 0.0-0.3 Automated blood basophil count (count/volume) 0.1 10*3/uL 0.0-0.1 Comprehensive metabolic panel - 01/17/19 04:00 Serum or plasma sodium measurement (moles/volume) 139 mmol/L 135-145 Serum or plasma potassium measurement (moles/volume) 3.8 mmol/L 3.6-5.0 Serum or plasma chloride measurement (moles/volume) 106 mmol/L 98-107 Carbon dioxide 22 mmol/L 21-32 Serum or plasma anion gap determination (moles/volume) 11 mmol/L 5-14 Serum or plasma urea nitrogen measurement (mass/volume) 5 mg/dL 7-18 Serum or plasma creatinine measurement (mass/volume) 0.67 mg/dL 0.60-1.30 Serum or plasma urea nitrogen/creatinine mass ratio 7 NRG Serum or plasma creatinine measurement with calculation of estimated glomerular filtration rate > NRG Serum or plasma glucose measurement (mass/volume) 88 mg/dL 70-105 Serum or plasma calcium measurement (mass/volume) 8.5 mg/dL 8.5-10.1 Serum or plasma total bilirubin measurement (mass/volume) 0.4 mg/dL 0.1-1.0 Serum or plasma alkaline phosphatase measurement (enzymatic activity/volume) 55 U/L 40-136 Serum or plasma aspartate aminotransferase measurement (enzymatic activity/ volume) 22 U/L 5-34 Serum or plasma alanine aminotransferase measurement (enzymatic activity/volume ) 22 U/L 0-55 Serum or plasma protein measurement (mass/volume) 6.6 g/dL 6.4-8.2 Serum or plasma albumin measurement (mass/volume) 3.7 g/dL 3.2-4.5 CALCIUM CORRECTED 8.7 mg/dL 8.5-10.1 Encounters ACCT No. Visit Date/Time Discharge Status Pt. Type Provider Facility Loc./Unit Complaint [id number] 01/16/2019 07:52:00 01/17/2019 14:00:00 DIS Inpatient NICHOLAS CRISTOBAL DO Via [facility] 4TH LOWER ABDOMINAL PAIN [id number] 12/18/2018 19:32:00 12/18/2018 21:38:00 DIS Outpatient SHANELL HANLEY APRN [facility] ER VOMITTING BLOOD [id number] 08/14/2018 21:08:00 08/15/2018 00:57:00 DIS Emergency ELVIRA BENITEZ MD [facility] ER CP [id number] 10/24/2017 21:17:00 10/24/2017 22:35:00 DIS Emergency CAROL PLASENCIA DO [facility] ER VAG PAIN W BLEEDING [id number] 02/12/2016 10:27:00 02/12/2016 15:30:00 DIS Outpatient CAMRYN CORONA MD [facility] SDC ABD PAIN,N/V [id number] 02/11/2016 11:17:00 02/11/2016 13:54:00 DIS Outpatient CAMRYN CORONA MD [facility] PREOP ABD PAIN,N/V [id number] 02/16/2019 20:09:00 ACT Emergency DIANNE PAPPAS DO [facility] ER FS MIGRAINE [id number] 02/09/2016 11:09:00 Document Registration [id number] 02/07/2016 16:24:00 ACT Inpatient YOON MAHER DO [facility] 4TH HYPOLKALEMIA,NAUSEA,VOMITING,ABD PAIN
[2019-02-16] MEDS ORDERED: BUTORPHANOL INJ 2 MG/ML (STADOL) VIAL IM STA (20:29)
[2019-02-16] MEDS ORDERED: PROMETHAZINE INJ 25 MG/ML (PHENERGAN) AMP IM STA (20:29)
[2019-02-16] MEDS ORDERED: DEXAMETHASONE 10 MG/ML (DECADRON) 1 ML VIAL IM ONE (20:30)
[2019-02-16] MEDS ORDERED: PROMETHAZINE INJ 25 MG/ML (PHENERGAN) AMP ONE (20:43)
[2019-02-16] MEDS ORDERED: BUTORPHANOL INJ 2 MG/ML (STADOL) VIAL ONE (20:44)
[2019-02-16] MEDS ORDERED: DEXAMETHASONE 10 MG/ML (DECADRON) 1 ML VIAL ONE (20:44)
[2019-02-16 20:56] VITALS: BP 190/68
--- NOTE | 2019-03-16 23:43 | ED Headache ---
General Chief Complaint: Head/Cervical Problems Stated Complaint: MIGRAINE Nursing Triage Note: PT. REPORTED THAT SHE HAS HAD A MIGRAINE FOR ABOUT 6 DAYS. HAS TAKEN IBUPROFEN TYLENOL AND EXCEDRIN AND NOTHING HAS HELPED. Nursing Sepsis Screen: No Definite Risk Source: patient, RN notes reviewed Exam Limitations: no limitations History of Present Illness Date Seen by Provider: Feb 16, 2019 Time Seen by Provider: 20:25 Initial Comments Patient presents c/ c/o a Migraine headache x 6 days. No relief c/ OTC meds. ( +) PMH of similar headaches but not recently. No known fever. No head injury, or trauma. Timing/Duration: 1 week Severity/Quality: severe Location: global Prior Headaches/Recent Trauma: occasional headaches Modifying Factors: worse with exposure to light Associated Symptoms: denies symptoms (x/ as noted.), other ((+) nausea) Allergies and Home Medications Allergies Coded Allergies: No Known Drug Allergies (Verified , 02/20/19) Home Medications Cyclobenzaprine HCl 10 Mg Tablet, 10 MG PO Q8H PRN for SPASMS Prescribed by: IVAN KAHN on 02/20/191758 Naproxen 500 Mg Tablet, 500 MG PO BID Prescribed by: IVAN KAHN on 02/20/191758 Patient Home Medication List Home Medication List Reviewed: Yes Review of Systems Review of Systems Constitutional: see HPI Gastrointestinal: see HPI, nausea Psychiatric/Neurological: See HPI, Headache All Other Systems Reviewed Negative Unless Noted: Yes (Negative excepted noted.) Past Cacdmek-Anbzjk-Uhmfid Hx Patient Social History Drug of Choice: marijuana Type Used: Cigarettes 2nd Hand Smoke Exposure: No Recent Foreign Travel: No Contact w/Someone Who Travel: No Recent Infectious Disease Expo: No Recent Hopitalizations: No Physical Abuse: No Sexual Abuse: No Mistreated: No Fear: No Immunizations Up To Date Tetanus Booster (TDap): Unknown PED Vaccines UTD: Yes Seasonal Allergies Seasonal Allergies: No Past Medical History Surgeries: Yes Abdominal, Section Respiratory: No Currently Using CPAP: No Currently Using BIPAP: No Cardiac: No Neurological: No 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 Disorders: No 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: No Gastrointestinal: Yes Diverticulosis Musculoskeletal: No Endocrine: No HEENT: No Loss of Vision: Denies Hearing Impairment: Denies Cancer: No Psychosocial: No Anxiety, Depression Integumentary: No Blood Disorders: No Adverse Reaction/Blood Tranf: No Family Medical History Arthritis 19 MOTHER GRANDMA-MATERAL Colon cancer GRANDP-MATERANL Completed stroke 19 FATHER Congenital disease 19 FATHER Congenital heart disease 19 FATHER Diabetes mellitus 19 FATHER GRANDMA-MATERAL Hypercholesterolemia Myocardial infarction 19 FATHER GRANDP-MATERANL Heart Disease, Cancer, Diabetes Physical Exam Vital Signs Capillary Refill : Less Than 3 Seconds Height, Weight, BMI Height: 5'3.00" Weight: 190lbs. 0.0oz. 86.365219rd; 33.7 BMI Method:Stated General Appearance: WD/WN, mild distress, obese HEENT: PERRL/EOMI, photophobia Neck: supple Cardiovascular: regular rate, rhythm Respiratory: no respiratory distress Psychiatric: alert, oriented x 3, depressed affect Coordination/Gait: normal finger to nose Motor/Sensory: no pronator drift, negative Babinski's sign Skin: warm/dry Progress/Results/Core Measures Results/Orders My Orders Orders - DIANNE PAPPAS DO Butorphanol Injection (Stadol Injection) (02/16/19 20:29) Dexamethasone Injection (Decadron Inject (02/16/19 20:30) Promethazine Injection (Phenergan Injec (02/16/19 20:29) Butorphanol Injection (Stadol Injection) (02/16/19 20:44) Dexamethasone Injection (Decadron Inject (02/16/19 20:44) Promethazine Injection (Phenergan Injec (02/16/19 20:43) Im/Sub-Q Injection Non-Ab Ed (02/16/19 ) Blood Pressure Mean: 108 Progress Progress Note : Progress Note ALANIZ improved p/ meds. Departure Impression Primary Impression: Migraine Disposition: 01 HOME, SELF-CARE Condition: Stable Departure-Patient Inst. Referrals: TYRA WALKER MD (PCP) Primary Care Physician Patient Instructions: Migraine Headache (DC) DIANNE PAPPAS DO March 16, 2019 23:43
== END 2019-02-16 20:56 | disposition home or self-care (01) ==
LOC: EDUNIT# 20:08 → ER FS 20:09
DX: G43.909 Migraine, unspecified, not intractable, without status migrainosus (principal); F41.9 Anxiety disorder, unspecified; F32.9 Major depressive disorder, single episode, unspecified; Z98.890 Other specified postprocedural states; Z97.5 Presence of (intrauterine) contraceptive device; Z87.19 Personal history of other diseases of the digestive system; Z80.0 Family history of malignant neoplasm of digestive organs; Z82.49 Family history of ischemic heart disease and other diseases of the circulatory system
CPT/HCPCS: 96372; 99284

== ENCOUNTER 2019-02-20 16:54 | Emergency (ER) | payer SELFPAY ==
[~2019-02-20] VITALS: Ht 160 cm; Wt 86.2 kg
--- OUTSIDE RECORDS SUMMARY | 2019-02-20 17:02 | XMS REPORT | Continuity of Care Document ---
Author Organization Unknown Address Unknown Allergies Active Description Code Type Severity Reaction Onset Reported/Identified Relationship to Patient Clinical Status Yes No Known Drug Allergies [id number] Drug Allergy Unknown N/A 02/16/2019 Medications There is no data. Problems Date Dx Coded Attending Type Code Diagnosis Diagnosed By 02/08/2016 YOON MAHER DO Ot E87.6 HYPOKALEMIA 02/08/2016 TRAE MAHER DOI Ot F17.210 NICOTINE DEPENDENCE, CIGARETTES, UNCOMPL 02/08/2016 GUNNAR MOREAU YOON Ot R10.11 RIGHT UPPER QUADRANT PAIN 02/08/2016 GUNNAR MOREAU YOON Ot R11.2 NAUSEA WITH VOMITING, UNSPECIFIED 02/08/2016 TRAE MAHER DOI Ot E87.6 02/08/2016 MAHER DO, YOON Ot F17.210 02/08/2016 MAHER DO, YOON Ot R10.11 02/08/2016 MAHERMATTIE MOREAU YOON [...] F41.9 ANXIETY DISORDER, UNSPECIFIED 12/20/2018 SHANELL HANLEY EVIDENCE TECHNICIAN Ot K92.0 HEMATEMESIS 12/20/2018 SHANELL HANLEY APRN Ot R10.13 EPIGASTRIC PAIN 12/20/2018 SHANELL HANLEY APRN Ot Z80.0 FAMILY HISTORY OF MALIGNANT NEOPLASM OF 12/20/2018 SHANELL HANLEY EVIDENCE TECHNICIAN Ot Z82.49 FAMILY HX OF ISCHEM HEART [...] FOR INFLUENZA A AND B ANTIGENS BY [facility] Complete blood count (CBC) with automated white [...] Status Pt. Type Provider Facility Loc./Unit Complaint [id number] 02/16/2019 20:09:00 02/16/2019 20:56:00 DIS Emergency DIANNE PAPPAS DO Via [facility] ER FS MIGRAINE [id number] 01/16/2019 07:52:00 01/17/2019 14:00:00 DIS Inpatient NICHOLAS CRISTOBAL DO Via [facility] 4TH LOWER ABDOMINAL PAIN [id number] 12/18/2018 19:32:00 12/18/2018 21:38:00 DIS Outpatient SHANELL HANLEY APRN Via [facility] ER VOMITTING BLOOD [id number] 08/14/2018 21:08:00 08/15/2018 00:57:00 DIS Emergency ELVIRA BENITEZ MD Via [facility] ER CP [id number] 10/24/2017 21:17:00 10/24/2017 22:35:00 DIS Emergency CAROL PLASENCIA DO [facility] ER VAG PAIN W BLEEDING [id number] 02/12/2016 10:27:00 02/12/2016 15:30:00 DIS Outpatient CAMRYN CORONA MD [facility] SDC ABD PAIN,N/V [id number] 02/11/2016 11:17:00 02/11/2016 13:54:00 DIS Outpatient CAMRYN CORONA MD Via [facility] PREOP ABD PAIN,N/V [id number] 02/20/2019 16:57:00 ACT Emergency IVAN KAHN MD Via [facility] ER FS LOW BACK PAIN [id number] 02/09/2016 11:09:00 Document Registration [id number] 02/07/2016 16:24:00 ACT Inpatient YOON MAHER DO Via [facility] 4TH HYPOLKALEMIA,NAUSEA,VOMITING,ABD PAIN
--- NOTE | 2019-02-20 17:24 | ED Back Pain ---
General Chief Complaint: Back Problems Stated Complaint: LOW BACK PAIN Source of Information: Patient Exam Limitations: No Limitations History of Present Illness Date Seen by Provider: Feb 20, 2019 Time Seen by Provider: 17:10 Initial Comments 33-year-old female presents with three-day history of right flank pain. She does not recall any injury, strain or previous similar symptoms. No hematuria or darkening of her urine noted. No reported fever or chills. She has an implanted contraceptive device and states there is no chance of . She denies any cough or shortness of breath. Allergies and Home Medications Allergies Coded Allergies: No Known Drug Allergies (Verified , 02/20/19) Home Medications No Active Prescriptions or Reported Meds Patient Home Medication List Home Medication List Reviewed: Yes Review of Systems Constitutional: no symptoms reported EENTM: see HPI, no symptoms reported Respiratory: no symptoms reported Cardiovascular: no symptoms reported Gastrointestinal: no symptoms reported : No Control/STD Prophylaxis: Other Musculoskeletal: back pain Skin: no symptoms reported Psychiatric/Neurological: No Symptoms Reported All Other Systems Reviewed Negative Unless Noted: Yes Past Hvjjwwr-Vmrlab-Mtneij Hx Past Med/Social Hx: Reviewed Nursing Past Med/Soc Hx Patient Social History Alcohol Use: Denies Use Recreational Drug Use: No Drug of Choice: marijuana Type Used: Cigarettes 2nd Hand Smoke Exposure: No Recent Foreign Travel: No Contact w/Someone Who Travel: No Recent Hopitalizations: No Physical Abuse: No Sexual Abuse: No Mistreated: No Fear: No Immunizations Up To Date Tetanus Booster (TDap): Unknown PED Vaccines UTD: Yes Seasonal Allergies Seasonal Allergies: No Past Medical History Surgeries: Yes Abdominal, Section, Gallbladder Respiratory: No Currently Using CPAP: No Currently Using BIPAP: No Cardiac: No Neurological: No 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 Disorders: No 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: No Gastrointestinal: Yes Diverticulosis Musculoskeletal: No Endocrine: No HEENT: No Loss of Vision: Denies Hearing Impairment: Denies Cancer: No Psychosocial: No Anxiety, Depression Integumentary: No Blood Disorders: No Adverse Reaction/Blood Tranf: No Family Medical History Arthritis 19 MOTHER GRANDMA-MATERAL Colon cancer GRANDP-MATERANL Completed stroke 19 FATHER Congenital disease 19 FATHER Congenital heart disease 19 FATHER Diabetes mellitus 19 FATHER GRANDMA-MATERAL Hypercholesterolemia Myocardial infarction 19 FATHER GRANDP-MATERANL Heart Disease, Cancer, Diabetes Physical Exam Vital Signs Vital Signs - First Documented 02/20/19 17:07 Temp 99.2 Pulse 105 Resp 18 B/P (MAP) 124/81 (95) Pulse Ox 100 Capillary Refill : Height, Weight, BMI Height: 5'3.00" Weight: 190lbs. 0.0oz. 86.914923zt; 33.7 BMI Method:Stated General Appearance: No Apparent Distress, WD/WN, Obese HEENT: PERRL/EOMI, TMs Normal, Normal ENT Inspection, Pharynx Normal Neck: Full Range of Motion, Normal Inspection, Non Tender, Supple Cardiovascular: Regular Rate, Rhythm, No Edema, No Gallop, No JVD, No Murmur, Normal Peripheral Pulses Respiratory: Chest Non Tender, Lungs Clear, Normal Breath Sounds, No Accessory Muscle Use, No Respiratory Distress, Accessory Muscle Use Gastrointestinal: Normal Bowel Sounds, No Organomegaly, No Pulsatile Mass, Non Tender, Soft Back: Normal Inspection; No CVA Tenderness (L); CVA Tenderness (R) Extremity: Normal Capillary Refill, Normal Inspection, Normal Range of Motion, Non Tender, No Calf Tenderness, No Pedal Edema, Calf Tenderness Neurologic/Psychiatric: Alert, Oriented x3, No Motor/Sensory Deficits, Normal 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, 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 Norm as Tested, Abnormal Cerebellar Tests Skin: Normal Color, Warm/Dry, Cyanosis; No Jaundice Lymphatic: No Adenopathy, Axilla Node Tender (L), Axilla Node Tender (R) Progress/Results/Core Measures Results/Orders Lab Results Laboratory Tests Test 02/20/19 17:23 02/20/19 17:31 Range/Units Urine Color YELLOW Urine Clarity CLEAR Urine pH 7.5 5-9 Urine Specific [place] 1.010 L 1.016-1.022 Urine Protein NEGATIVE NEGATIVE Urine Glucose (UA) NEGATIVE NEGATIVE Urine Ketones NEGATIVE NEGATIVE Urine Nitrite NEGATIVE NEGATIVE Urine Bilirubin NEGATIVE NEGATIVE Urine Urobilinogen NORMAL NORMAL MG/DL Urine Leukocyte Esterase TRACE NEGATIVE Urine RBC (Auto) NEGATIVE NEGATIVE Urine RBC RARE /HPF Urine WBC RARE /HPF Urine Squamous Epithelial Cells 25-50 H /HPF Urine Crystals NONE /LPF Urine Bacteria FEW H /HPF Urine Casts NONE /LPF Urine Mucus NEGATIVE /LPF Urine Culture Indicated NO White Blood Count 13.3 H 4.3-11.0 10^3/uL Red Blood Count 4.62 4.35-5.85 10^6/uL Hemoglobin 14.1 11.5-16.0 G/DL Hematocrit 42 35-52 % Mean Corpuscular Volume 92 80-99 FL Mean Corpuscular Hemoglobin 31 25-34 PG Mean Corpuscular Hemoglobin Concent 33 32-36 G/DL Red Cell Distribution Width 13.6 10.0-14.5 % Platelet Count 404 H 130-400 10^3/uL Mean Platelet Volume 10.1 7.4-10.4 FL Neutrophils (%) (Auto) 56 42-75 % Lymphocytes (%) (Auto) 33 12-44 % Monocytes (%) (Auto) 5 0-12 % Eosinophils (%) (Auto) 4 0-10 % Basophils (%) (Auto) 1 0-10 % Neutrophils # (Auto) 7.5 1.8-7.8 X 10^3 Lymphocytes # (Auto) 4.4 H 1.0-4.0 X 10^3 Monocytes # (Auto) 0.7 0.0-1.0 X 10^3 Eosinophils # (Auto) 0.6 H 0.0-0.3 10^3/uL Basophils # (Auto) 0.1 0.0-0.1 10^3/uL My Orders Orders - IVAN KAHN MD Ct Abdomen/Pelvis Wo (02/20/19 17:16) Cbc With Automated Diff (02/20/19 17:16) Comprehensive Metabolic Panel (02/20/19 17:16) Lipase (02/20/19 17:16) Ua Culture If Indicated (02/20/19 17:16) Vital Signs/I&O 02/20/19 17:07 Temp 99.2 Pulse 105 Resp 18 B/P (MAP) 124/81 (95) Pulse Ox 100 Progress Progress Note : Time: 17:23 Progress Note We'll proceed with workup to include lab studies and CT. Discussed with patient who understands and agrees with plan. Diagnostic Imaging Diagonstic Imaging: CT Plain Films/CT/US/NM/MRI: abdomen Comments No ureteral calculus, appendicitis or other acute abnormalities. Per radiologist draft report. Departure Impression Primary Impression: Back strain Qualified Codes: S39.012A - Strain of muscle, fascia and tendon of lower back , initial encounter Disposition: 01 HOME, SELF-CARE Condition: Stable Departure-Patient Inst. Decision time for Depature: 17:58 Referrals: TYRA WALKER MD (PCP/Family) Primary Care Physician 2-3 days, sooner as needed Patient Instructions: Lumbar Muscle Strain (DC) Scripts Naproxen (Naprosyn) 500 Mg Tablet 500 MG PO BID, #30 TAB 0 Refills Prov: IVAN KAHN MD 02/20/19 Cyclobenzaprine HCl (Cyclobenzaprine HCl) 10 Mg Tablet 10 MG PO Q8H PRN for SPASMS, #15 TAB 0 Refills Prov: IVAN KAHN MD 02/20/19 IVAN KAHN MD Feb 20, 2019 17:24
[2019-02-20 17:34] LABS: BACTERIA,URINE FEW /HPF; BILIRUBIN,URINE NEGATIVE (NEGATIVE); CLARITY,URINE CLEAR; COLOR,URINE YELLOW; GLUCOSE, URINE (UA) NEGATIVE (NEGATIVE); KETONES,URINE NEGATIVE (NEGATIVE); LEUKOCYTE ESTERASE ,URINE TRACE (NEGATIVE); NITRITE,URINE NEGATIVE (NEGATIVE); PH,URINE 7.5 (5-9); PROTEIN,URINE NEGATIVE (NEGATIVE); RBC,URINE RARE /HPF; SQUAMOUS EPITHELIAL CELL,UR 25-50 /HPF; UROBILINOGEN,URINE NORMAL (NORMAL); WBC,URINE RARE /HPF
[2019-02-20 17:43] LABS: BASOPHILS # (AUTO) 0.1 10^3/uL (0.0-0.1); BASOPHILS % (AUTO) 1 % (0-10); EOSINOPHILS # (AUTO) 0.6 10^3/uL (0.0-0.3); EOSINOPHILS % (AUTO) 4 % (0-10); HEMATOCRIT 42 % (35-52); HEMOGLOBIN 14.1 G/DL (11.5-16.0); LYMPHOCYTES # (AUTO) 4.4 X 10^3 (1.0-4.0); LYMPHOCYTES % (AUTO) 33 % (12-44); MEAN CORPUSCULAR HEMOGLOBIN 31 PG (25-34); MEAN CORPUSCULAR HGB CONC 33 G/DL (32-36); MEAN CORPUSCULAR VOLUME 92 FL (80-99); MEAN PLATELET VOLUME 10.1 FL (7.4-10.4); MONOCYTES # (AUTO) 0.7 X 10^3 (0.0-1.0); MONOCYTES % (AUTO) 5 % (0-12); NEUTROPHILS # (AUTO) 7.5 X 10^3 (1.8-7.8); NEUTROPHILS % (AUTO) 56 % (42-75); PLATELET COUNT 404 10^3/uL (130-400); RED CELL DISTRIBUTION WIDTH 13.6 % (10.0-14.5); WHITE BLOOD COUNT 13.3 10^3/uL (4.3-11.0)
[2019-02-20] MEDS ORDERED: NAPR-1071 PO (17:59)
[2019-02-20] MEDS ORDERED: CYCL10TA9 PO (17:59)
--- NOTE | 2019-02-20 18:00 | Diagnostic Imaging Report ---
PROCEDURE: CT abdomen and pelvis without contrast. TECHNIQUE: Multiple contiguous axial images were obtained through the abdomen and pelvis without the use of intravenous contrast. Auto Exposure Controls were utilized during the CT exam to meet ALARA standards for radiation dose reduction. INDICATION: Right-sided flank pain x4 days. COMPARISON: Comparison is made with a previous study from January 16, 2019. FINDINGS: The visualized lung bases are clear without focal infiltrate or evidence of a pleural or pericardial effusion. The liver demonstrates no noncontrast evidence of a focal intrahepatic abnormality. There are surgical clips related to prior cholecystectomy. There is no abnormal biliary dilatation. The pancreas appears normal without adjacent inflammation. The spleen is normal in size. There is no adrenal mass. The kidneys are nonobstructed. There is no evidence of an intrarenal calculus or stone within the collecting system. The small and large bowel are normal in caliber without evidence of obstruction. There is a large degree of food products evident within the stomach. There is no abnormal gastric wall thickening. There is moderate stool demonstrated within the colon. Sigmoid diverticulosis is again noted without findings to suggest diverticulitis. The appendix is well visualized and appears normal. Urinary bladder is nondistended. Uterus is unremarkable. There appear to be bilateral ovarian cysts. There is no free fluid within the pelvis. There are no pathologically enlarged abdominal or pelvic lymph nodes. There are minimal atherosclerotic calcifications within the aorta. Lumbar spine alignment is normal. The vertebral body heights are maintained. There is no acute or suspicious osseous abnormality. IMPRESSION: 1. No CT evidence of an acute inflammatory or obstructive process within the abdomen or pelvis. 2. Sigmoid diverticulosis without evidence of diverticulitis. 3. No evidence of bowel obstruction. 4. Bilateral ovarian cysts. There is no free fluid within the pelvis. 5. Previous cholecystectomy. Dictated by: Dictated on workstation # [id number]
[2019-02-20 18:05] LABS: BUN/CREATININE RATIO 11; CALCIUM 8.8 MG/DL (8.5-10.1); CARBON DIOXIDE 21 MMOL/L (21-32); CHLORIDE 102 MMOL/L (98-107); CREATININE SERUM 0.56 MG/DL (0.60-1.30); GFR ESTIMATED > 60; GLUCOSE 115 MG/DL (70-105); POTASSIUM 3.7 MMOL/L (3.6-5.0); SODIUM 139 MMOL/L (135-145)
[2019-02-20 18:06] LABS: ALANINE AMINOTRANSFERASE 20 U/L (0-55); ALKALINE PHOSPHATASE 63 U/L (40-136); BILIRUBIN,TOTAL 0.3 MG/DL (0.1-1.0); LIPASE 24 U/L (8-78); TOTAL PROTEIN 7.1 GM/DL (6.4-8.2)
[2019-02-20 18:12] VITALS: BP 125/72
== END 2019-02-20 18:12 | disposition home or self-care (01) ==
LOC: EDUNIT# 16:54 → ER FS 16:57
DX: S39.012A Strain of muscle, fascia and tendon of lower back, initial encounter (principal); F41.9 Anxiety disorder, unspecified; F32.9 Major depressive disorder, single episode, unspecified; F12.10 Cannabis abuse, uncomplicated; Z98.890 Other specified postprocedural states; Z80.0 Family history of malignant neoplasm of digestive organs; Z82.49 Family history of ischemic heart disease and other diseases of the circulatory system; Z97.5 Presence of (intrauterine) contraceptive device; Z87.19 Personal history of other diseases of the digestive system; X58.XXXA Exposure to other specified factors, initial encounter
CPT/HCPCS: 36415; 74176; 80053; 81000; 83690; 85025

== ENCOUNTER 2019-04-05 15:24 | Emergency (ER) | payer SELFPAY ==
[~2019-04-05] VITALS: Ht 160 cm; Wt 90.7 kg
[~2019-04-05 15:24] MED LIST changes: +CYCL10TA9 PO; +NAPR-1071 PO
--- NOTE | 2019-04-05 16:00 | ED Headache ---
General Chief Complaint: Head/Cervical Problems Stated Complaint: MIGRAINE Nursing Triage Note: Patient states her migraine started yesterday afternoon, states she took excedrin at 9 am today with no relief. Reports nausea and neck pain, states she frequently gets migraines this time of year. Nursing Sepsis Screen: No Definite Risk Source: patient, family (mom) Exam Limitations: no limitations History of Present Illness Date Seen by Provider: April 05, 2019 Time Seen by Provider: 15:45 Initial Comments Patient presents to ER by private conveyance with her mother chief complaint that she's had a migraine headache that is throbbing, global with photophobia and phonophobia for 2 days now. She's been using Excedrin with no relief. Her last dose was at 8:00 this morning. She has a history of migraines and this is similar to her previous migraines. She rates it as a 10 out of 10. She's having some nausea with retching. She has a Nexplanon. No other significant medical history. She does not follow with a primary care doctor. She has never used triptan's before. Allergies and Home Medications Allergies Coded Allergies: No Known Drug Allergies (Verified , 02/20/19) Home Medications Cyclobenzaprine HCl 10 Mg Tablet, 10 MG PO Q8H PRN for SPASMS Prescribed by: IVAN KAHN on 02/20/191758 Naproxen 500 Mg Tablet, 500 MG PO BID Prescribed by: IVAN KAHN on 02/20/191758 Patient Home Medication List Home Medication List Reviewed: Yes Review of Systems Review of Systems Constitutional: No chills, No fever, No malaise Eyes: Denies Blindness, Denies Blurred Vision, Denies Drainage Ears, Nose, Mouth, Throat: denies ear pain, denies ear discharge Respiratory: No cough, No phlegm Past Syufrgd-Oytgfm-Axzgsu Hx Patient Social History Alcohol Use: Denies Use Recreational Drug Use: Yes Drug of Choice: marijuana Smoking Status: Current Everyday Smoker Type Used: Cigarettes 2nd Hand Smoke Exposure: No Recent Foreign Travel: No Contact w/Someone Who Travel: No Recent Infectious Disease Expo: No Recent Hopitalizations: No Physical Abuse: No Sexual Abuse: No Mistreated: No Fear: No Immunizations Up To Date Tetanus Booster (TDap): Unknown PED Vaccines UTD: Yes Seasonal Allergies Seasonal Allergies: No Past Medical History Surgeries: Yes Abdominal, Section, Gallbladder Respiratory: No Currently Using CPAP: No Currently Using BIPAP: No Cardiac: No Neurological: Yes Headaches /Migraines 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 Disorders: No 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: No Gastrointestinal: Yes Diverticulosis Musculoskeletal: No Endocrine: No HEENT: No Loss of Vision: Denies Hearing Impairment: Denies Cancer: No Psychosocial: No Anxiety, Depression Integumentary: No Blood Disorders: No Adverse Reaction/Blood Tranf: No Family Medical History Arthritis 19 MOTHER GRANDMA-MATERAL Colon cancer GRANDP-MATERANL Completed stroke 19 FATHER Congenital disease 19 FATHER Congenital heart disease 19 FATHER Diabetes mellitus 19 FATHER GRANDMA-MATERAL Hypercholesterolemia Myocardial infarction 19 FATHER GRANDP-MATERANL Heart Disease, Cancer, Diabetes Physical Exam Vital Signs Vital Signs - First Documented 04/05/19 15:49 Temp 98.0 Pulse 92 Resp 21 B/P (MAP) 132/89 (103) Pulse Ox 99 O2 Delivery Room Air Capillary Refill : Less Than 3 Seconds Height, Weight, BMI Height: 5'3.00" Weight: 200lbs. 0.0oz. 90.467281ji; 33.7 BMI Method:Stated General Appearance: WD/WN, mild distress HEENT: PERRL/EOMI, pharynx normal Neck: full range of motion, normal inspection Cardiovascular: regular rate, rhythm, no edema Respiratory: no respiratory distress, no accessory muscle use Psychiatric: alert, oriented x 3 Crainal Nerves: normal hearing, normal speech Coordination/Gait: normal gait Progress/Results/Core Measures Results/Orders My Orders Orders - JACOB SANZ Prochlorperazine Injection (Compazine In (04/05/19 16:00) Acetaminophen Tablet (Tylenol Tablet) (04/05/19 16:00) Ketorolac Injection (Toradol Injection) (04/05/19 16:00) Dexamethasone Injection (Decadron Inject (04/05/19 16:00) Diphenhydramine Tablet (Benadryl Tablet) (04/05/19 16:00) Vital Signs/I&O 04/05/19 15:49 Temp 98.0 Pulse 92 Resp 21 B/P (MAP) 132/89 (103) Pulse Ox 99 O2 Delivery Room Air Blood Pressure Mean: 103 Progress Progress Note : Time: 15:57 Progress Note Uncomplicated, chronic, migraine headache. Toradol, Tylenol, Benadryl, Co mpazine, Decadron and sleep. 2 weeks ago she was here with a migraine headache and was given Phenergan, Toradol and Decadron and she said that worked very well to abort her headache. We'll encourage her to follow up with a primary care doctor and discuss prophylactic medications. Departure Impression Primary Impression: Migraine Qualified Codes: G43.009 - Migraine without aura, not intractable, without status migrainosus Disposition: HOME, SELF-CARE Condition: Stable Departure-Patient Inst. Decision time for Depature: 15:58 Referrals: NO,LOCAL PHYSICIAN (PCP) Primary Care Physician TYRA WALKER MD (Family) Primary Care Physician Patient Instructions: Migraine Headache (DC) Add. Discharge Instructions: Drink lots of fluids and continue Tylenol 1000 mg every 8 hours in addition to ibuprofen 800 mg every 8 hours as needed for headache. Get some sleep. Follow-up with a primary care doctor and discussed the possibility of a medicine you could start that might prevent how often and how severe your migraine headaches are. If you have severe symptoms, nausea vomiting that you cannot control or fever above 102.5 then I invite you to return to the nearest ER for further evaluation. All discharge instructions reviewed with patient and/or family. Voiced understanding. Work/School Note: Work Release Form Date Seen in the Emergency Department: April 05, 2019 Return to Work: April 06, 2019 Restrictions: No Restrictions JACOB SANZ April 05, 2019 16:00
--- OUTSIDE RECORDS SUMMARY | 2019-04-05 16:00 | XMS REPORT | Continuity of Care Document ---
Author Organization Unknown Address Unknown Allergies Active Description Code Type Severity Reaction Onset Reported/Identified Relationship to Patient Clinical Status Yes No Known Drug Allergies [id number] Drug Allergy Unknown N/A 02/20/2019 Medications There is no data. Problems Date Dx Coded Attending Type Code Diagnosis Diagnosed By 02/08/2016 YOON MAHER DO Ot E87.6 HYPOKALEMIA 02/08/2016 TRAE MAHER DOI Ot F17.210 NICOTINE DEPENDENCE, CIGARETTES, UNCOMPL 02/08/2016 GUNNAR MOREAU YOON Ot R10.11 RIGHT UPPER QUADRANT PAIN 02/08/2016 TRAE MAHER DOI Ot R11.2 NAUSEA WITH VOMITING, UNSPECIFIED 02/08/2016 TRAE MAHER DOI Ot E87.6 02/08/2016 MAHER , YOON Ot F17.210 02/08/2016 MAHERMATTIE MOREAU YOON [...] OF INTEST, PART UNSP, W/O PERF 02/12/2016 CAREN CORONA MDKI Ot K64.1 SECOND DEGREE HEMORRHOIDS 02/12/2016 CJ [...] OF MALIGNANT NEOPLASM OF 10/24/2017 CAROL PLASENCIA DO, Ot F17.210 NICOTINE DEPENDENCE, CIGARETTES, UNCOMPL 10/24/2017 [...] UTERINE AND VAG 10/30/2017 LUIS ANGEL CAROL K Ot N99.821 POSTPROC HEMOR OF A SYS ORG FOLLOWING 10/30/2017 LUIS ANGEL DOSANJAYA Janee Ot Z80.9 FAMILY HISTORY OF MALIGNANT NEOPLASM, UN 10/30/2017 LUIS ANGEL DOSANJAYA K Ot Z82.49 FAMILY HX OF ISCHEM [...] MD Ot Z98.890 OTHER SPECIFIED POSTPROCEDURAL STATES 12/18/2018 SHANELL HANLEY APRN Ot F17.210 NICOTINE DEPENDENCE, CIGARETTES, UNCOMPL 12/18/2018 SHANELL HANLEY APRN Ot F32.9 MAJOR DEPRESSIVE DISORDER, SINGLE EPISOD 12/18/2018 SHANELL HANLEY APRN Ot F41.9 ANXIETY DISORDER, UNSPECIFIED 12/18/2018 SHANELL HANLEY APRN Ot K92.0 HEMATEMESIS 12/18/2018 SHANELL HANLEY APRN Ot R10.13 EPIGASTRIC PAIN 12/18/2018 SHANELL HANLEY APRN Ot Z80.0 FAMILY HISTORY OF MALIGNANT NEOPLASM OF 12/18/2018 SHANELL HANLEY APRN Ot Z82.49 FAMILY HX OF ISCHEM HEART DIS AND OTH DI 12/18/2018 SHANELL HANLEY APRN Ot Z87.19 PERSONAL HISTORY OF OTHER DISEASES OF TH 12/18/2018 SHANELL HANLEY APRN Ot Z97.5 PRESENCE OF (INTRAUTERINE) CONTRACEPTIVE 12/18/2018 SHANELL HANLEY APRN Ot Z98.890 OTHER SPECIFIED POSTPROCEDURAL STATES 12/20/2018 [...] Ot Z98.890 OTHER SPECIFIED POSTPROCEDURAL STATES 01/17/2019 ADRIEN CRISTOBAL DOA Janee Ot F17.210 NICOTINE DEPENDENCE, CIGARETTES, UNCOMPL 01/17/2019 LEVAR MOREAU NICHOLAS Janee Ot F32.9 MAJOR DEPRESSIVE DISORDER, SINGLE EPISOD 01/17/2019 LEVAR MOREAU NICHOLAS Janee Ot F41.9 ANXIETY DISORDER, UNSPECIFIED 01/17/2019 LEVAR MOREAU NICHOLAS K Ot K57.32 DVTRCLI OF LG INT W/O PERFORATION OR ABS 01/17/2019 ADRIEN CRISTOBAL DOA Janee Ot N83.02 FOLLICULAR CYST OF LEFT OVARY 02/20/2019 FEMI LAWRENCE, IVAN Warner Ot F12.10 CANNABIS ABUSE, UNCOMPLICATED 02/20/2019 IVAN KAHN MD Ot F32.9 MAJOR DEPRESSIVE DISORDER, SINGLE EPISOD 02/20/2019 IVAN KAHN MD Ot F41.9 ANXIETY DISORDER, UNSPECIFIED 02/20/2019 IVAN KAHN MD Ot M54.5 LOW BACK PAIN 02/20/2019 IVAN KAHN MD Ot S39.012A STRAIN OF MUSCLE, FASCIA AND TENDON OF L 02/20/2019 IVAN KAHN MD Ot X58.XXXA EXPOSURE TO OTHER SPECIFIED FACTORS, INI 02/20/2019 IVAN KAHN MD Ot Z80.0 FAMILY HISTORY OF MALIGNANT NEOPLASM OF 02/20/2019 IVAN KAHN MD Ot Z82.49 FAMILY HX OF ISCHEM HEART DIS AND OTH DI 02/20/2019 IVAN KAHN MD Ot Z87.19 PERSONAL HISTORY OF OTHER DISEASES OF TH 02/20/2019 IVAN KAHN MD Ot Z97.5 PRESENCE OF (INTRAUTERINE) CONTRACEPTIVE 02/20/2019 IVAN KAHN MD Ot Z98.890 OTHER SPECIFIED POSTPROCEDURAL STATES 02/23/2019 IVAN KAHN MD Ot F12.10 CANNABIS ABUSE, UNCOMPLICATED 02/23/2019 IVAN KAHN MD Ot F32.9 MAJOR DEPRESSIVE DISORDER, SINGLE EPISOD 02/23/2019 IVAN KAHN MD, Ot F41.9 ANXIETY DISORDER, UNSPECIFIED 02/23/2019 IVAN KAHN MD, Ot M54.5 LOW BACK PAIN 02/23/2019 IVAN KAHN MD Ot S39.012A STRAIN OF MUSCLE, FASCIA AND TENDON OF L 02/23/2019 IVAN KAHN MD Ot X58.XXXA EXPOSURE TO OTHER SPECIFIED FACTORS, INI 02/23/2019 IVAN KAHN MD Ot Z80.0 FAMILY HISTORY OF MALIGNANT NEOPLASM OF 02/23/2019 IVAN KAHN MD Ot Z82.49 FAMILY HX OF ISCHEM HEART DIS AND OTH DI 02/23/2019 IVAN KAHN MD Ot Z87.19 PERSONAL HISTORY OF OTHER DISEASES OF TH 02/23/2019 IVAN KAHN MD Ot Z97.5 PRESENCE OF (INTRAUTERINE) CONTRACEPTIVE 02/23/2019 IVAN KAHN MD Ot Z98.890 OTHER SPECIFIED POSTPROCEDURAL STATES 02/27/2019 IVAN KAHN MD Ot F12.10 CANNABIS ABUSE, UNCOMPLICATED 02/27/2019 IVAN KAHN MD, Ot F32.9 MAJOR DEPRESSIVE DISORDER, SINGLE EPISOD 02/27/2019 IVAN KAHN MD, Ot F41.9 ANXIETY DISORDER, UNSPECIFIED 02/27/2019 IVAN KAHN MD, Ot M54.5 LOW BACK PAIN 02/27/2019 IVAN KAHN MD, Ot S39.012A STRAIN OF MUSCLE, FASCIA AND TENDON OF L 02/27/2019 IVAN KAHN MD, Ot X58.XXXA EXPOSURE TO OTHER SPECIFIED FACTORS, INI 02/27/2019 IVAN KAHN MD, Ot Z80.0 FAMILY HISTORY OF MALIGNANT NEOPLASM OF 02/27/2019 IVAN KAHN MD, Ot Z82.49 FAMILY HX OF ISCHEM HEART DIS AND OTH DI 02/27/2019 IVAN KAHN MD, Ot Z87.19 PERSONAL HISTORY OF OTHER DISEASES OF TH 02/27/2019 IVAN KAHN MD, Ot Z97.5 PRESENCE OF (INTRAUTERINE) CONTRACEPTIVE 02/27/2019 IVAN KAHN MD, Ot Z98.890 OTHER SPECIFIED POSTPROCEDURAL STATES 03/21/2019 DIANNE PAPPAS DO, Ot F32.9 MAJOR DEPRESSIVE DISORDER, SINGLE EPISOD 03/21/2019 DIANNE PAPPAS DO, Ot F41.9 ANXIETY DISORDER, UNSPECIFIED 03/21/2019 DIANNE PAPPAS DO, Ot G43.909 MIGRAINE, UNSP, NOT INTRACTABLE, WITHOUT 03/21/2019 DIANNE PAPPAS DO, Ot Z80.0 FAMILY HISTORY OF MALIGNANT NEOPLASM OF 03/21/2019 DIANNE PAPPAS DO, Ot Z82.49 FAMILY HX OF ISCHEM HEART DIS AND OTH DI 03/21/2019 DIANNE PAPPAS DO, Ot Z87.19 PERSONAL HISTORY OF OTHER DISEASES OF TH 03/21/2019 DIANNE PAPPAS DO, Ot Z97.5 PRESENCE OF (INTRAUTERINE) CONTRACEPTIVE 03/21/2019 DIANNE PAPPAS DO, Ot Z98.890 OTHER SPECIFIED POSTPROCEDURAL STATES Procedures [...] Automated erythrocyte mean corpuscular hemoglobin concentration measurement (mass/volume) 33 g/dL 32-36 Automated erythrocyte distribution width ratio 14.1 % 10.0- 14.5 Automated blood platelet count (count/volume) 339 10*3/uL [...] Blood monocytes automated count (number/volume) 1.0 10*3 0.0- 1.0 Automated eosinophil count 0.3 10*3/uL 0.0-0.3 Automated [...] Automated erythrocyte mean corpuscular hemoglobin concentration measurement (mass/volume) 35 g/dL 32-36 Automated erythrocyte distribution width ratio 13.7 % 10.0- 14.5 Automated blood platelet count (count/volume) 386 10*3/uL [...] Blood monocytes automated count (number/volume) 0.8 10*3 0.0- 1.0 Automated eosinophil count 0.3 10*3/uL 0.0-0.3 Automated [...] measurement in platelet poor plasma (mass/volume) - 08/14/18 21:40 Fibrin D-dimer FEU measurement in platelet [...] Serum or plasma aspartate aminotransferase measurement (enzymatic activity/volume) 16 U/L 5-34 Serum or plasma alanine aminotransferase measurement (enzymatic activity/volume) 27 U/L 0-55 Serum or plasma protein measurement (mass/volume) 8.0 g/dL 6.4-8.2 Serum or plasma albumin measurement (mass/volume) 4.2 g/dL 3.2-4.5 CALCIUM CORRECTED 9.5 mg/dL 8.5-10.1 Magnesium - 08/14/18 21:40 Magnesium 3.1 mg/dL 1.8-2.4 Serum or plasma troponin i.cardiac measurement (mass/volume) - 08/14/18 21:40 Serum or plasma troponin i.cardiac measurement (mass/volume) < ng/mL <0.30 Myoglobin, serum - 08/14/18 21:40 Myoglobin, serum 36.5 ng/mL 10.0-92.0 Influenza virus A and B antigen detection - 08/14/18 22:15 FLU RESULT NEGATIVE FOR INFLUENZA A AND B ANTIGENS BY [facility] Complete blood count (CBC) with [...] Automated erythrocyte mean corpuscular hemoglobin concentration measurement (mass/volume) 33 g/dL 32-36 Automated erythrocyte distribution width ratio 13.8 % 10.0- 14.5 Automated blood platelet count (count/volume) 343 10*3/uL [...] Blood monocytes automated count (number/volume) 1.0 10*3 0.0- 1.0 Automated eosinophil count 0.5 10*3/uL 0.0-0.3 Automated [...] Serum or plasma aspartate aminotransferase measurement (enzymatic activity/volume) 17 U/L 5-34 Serum or plasma alanine aminotransferase measurement (enzymatic activity/volume) 26 U/L 0-55 Serum or plasma protein measurement (mass/volume) 7.2 g/dL 6.4-8.2 Serum or plasma albumin measurement (mass/volume) 4.1 g/dL 3.2-4.5 CALCIUM CORRECTED 9.1 mg/dL 8.5-10.1 Lipase - 02/10/19 20:03 Lipase 16 U/L 8-78 Serum Helicobacter [...] gravity of urine by test strip 1.010 1.016-1.022 Urine protein assay by test strip, [...] sediment leukocyte count by microscopy (number/high power field) [HPF] NRG Bacteria detection in urine sediment [...] Automated erythrocyte mean corpuscular hemoglobin concentration measurement (mass/volume) 33 g/dL 32-36 Automated erythrocyte distribution width ratio 13.3 % 10.0- 14.5 Automated blood platelet count (count/volume) 373 10*3/uL [...] Serum or plasma aspartate aminotransferase measurement (enzymatic activity/volume) 16 U/L 5-34 Serum or plasma alanine aminotransferase measurement (enzymatic activity/volume) 21 U/L 0-55 Serum or plasma protein [...] Automated erythrocyte mean corpuscular hemoglobin concentration measurement (mass/volume) 33 g/dL 32-36 Automated erythrocyte distribution width ratio 13.8 % 10.0- 14.5 Automated blood platelet count (count/volume) 332 10*3/uL [...] Blood monocytes automated count (number/volume) 0.6 10*3 0.0- 1.0 Automated eosinophil count 0.4 10*3/uL 0.0-0.3 Automated [...] Serum or plasma aspartate aminotransferase measurement (enzymatic activity/volume) 22 U/L 5-34 Serum or plasma alanine aminotransferase measurement (enzymatic activity/volume) 22 U/L 0-55 Serum or plasma protein measurement (mass/volume) 6.6 g/dL 6.4-8.2 Serum or plasma albumin measurement (mass/volume) 3.7 g/dL 3.2-4.5 CALCIUM CORRECTED 8.7 mg/dL 8.5-10.1 Complete urinalysis with reflex to culture - 02/20/19 17:23 Urine color determination YELLOW NRG Urine clarity determination CLEAR NRG Urine pH measurement by test strip 7.5 5-9 Specific gravity of urine by test strip 1.010 1.016-1.022 Urine protein assay by test strip, [...] NORMAL Urine leukocyte esterase detection by dipstick TRACE NEGATIVE Automated urine sediment erythrocyte count by microscopy (number/high power field) RARE NRG Automated urine sediment leukocyte count by microscopy (number/high power field) RARE NRG Bacteria detection in urine sediment by light microscopy FEW NRG Squamous epithelial cells detection in urine sediment by light microscopy 25-50 NRG Crystals detection in urine sediment by light microscopy NONE NRG Casts detection in urine sediment by light microscopy NONE NRG Mucus detection in urine sediment by light microscopy NEGATIVE NRG Complete urinalysis with reflex to culture NO NRG Complete blood count (CBC) with automated white blood cell (WBC) differential - 02/20/19 17:31 Blood leukocytes automated count (number/volume) 13.3 10*3/uL 4.3-11.0 Blood erythrocytes automated count (number/volume) 4.62 10*6/uL 4.35-5.85 Venous blood hemoglobin measurement (mass/volume) 14.1 g/dL 11.5-16.0 Blood hematocrit (volume fraction) 42 % 35-52 Automated erythrocyte mean corpuscular volume 92 [foz_us] 80-99 Automated erythrocyte mean corpuscular hemoglobin (mass per erythrocyte) 31 pg 25-34 Automated erythrocyte mean corpuscular hemoglobin concentration measurement (mass/volume) 33 g/dL 32-36 Automated erythrocyte distribution width ratio 13.6 % 10.0- 14.5 Automated blood platelet count (count/volume) 404 10*3/uL 130-400 Automated blood platelet mean volume measurement 10.1 [foz_us] 7.4-10.4 Automated blood neutrophils/100 leukocytes 56 % 42-75 Automated blood lymphocytes/100 leukocytes 33 % 12-44 Blood monocytes/100 leukocytes 5 % 0-12 Automated blood eosinophils/100 leukocytes 4 % 0-10 Automated blood basophils/100 leukocytes 1 % 0-10 Blood neutrophils automated count (number/volume) 7.5 10*3 1.8-7.8 Blood lymphocytes automated count (number/volume) 4.4 10*3 1.0-4.0 Blood monocytes automated count (number/volume) 0.7 10*3 0.0- 1.0 Automated eosinophil count 0.6 10*3/uL 0.0-0.3 Automated blood basophil count (count/volume) 0.1 10*3/uL 0.0-0.1 Comprehensive metabolic panel - 02/20/19 17:31 Serum or plasma sodium measurement (moles/volume) 139 mmol/L 135-145 Serum or plasma potassium measurement (moles/volume) 3.7 mmol/L 3.6-5.0 Serum or plasma chloride measurement (moles/volume) 102 mmol/L 98-107 Carbon dioxide 21 mmol/L 21-32 Serum or plasma anion gap determination (moles/volume) 16 mmol/L 5-14 Serum or plasma urea nitrogen measurement (mass/volume) 6 mg/dL 7-18 Serum or plasma creatinine measurement (mass/volume) 0.56 mg/dL 0.60-1.30 Serum or plasma urea nitrogen/creatinine mass ratio 11 NRG Serum or plasma creatinine measurement with calculation of estimated glomerular filtration rate > NRG Serum or plasma glucose measurement (mass/volume) 115 mg/dL 70-105 Serum or plasma calcium measurement (mass/volume) 8.8 mg/dL 8.5-10.1 Serum or plasma total bilirubin measurement (mass/volume) 0.3 mg/dL 0.1-1.0 Serum or plasma alkaline phosphatase measurement (enzymatic activity/volume) 63 U/L 40-136 Serum or plasma aspartate aminotransferase measurement (enzymatic activity/volume) 15 U/L 5-34 Serum or plasma alanine aminotransferase measurement (enzymatic activity/volume) 20 U/L 0-55 Serum or plasma protein measurement (mass/volume) 7.1 g/dL 6.4-8.2 Serum or plasma albumin measurement (mass/volume) 4.0 g/dL 3.2-4.5 CALCIUM CORRECTED 8.8 mg/dL 8.5-10.1 Lipase - 02/20/19 17:31 Lipase 24 U/L 8-78 Encounters ACCT No. Visit Date/Time Discharge Status Pt. Type Provider Facility Loc./Unit Complaint [id number] 02/20/2019 16:57:00 02/20/2019 18:12:00 DIS Outpatient IVAN KAHN MD Via [facility] ER FS LOW BACK PAIN [id number] 02/16/2019 20:09:00 02/16/2019 20:56:00 DIS Outpatient DIANNE PAPPAS DO [facility] ER FS MIGRAINE [id number] 01/16/2019 07:52:00 01/17/2019 14:00:00 DIS Inpatient NICHOLAS CRISTOBAL DO [facility] 4TH LOWER ABDOMINAL PAIN [id number] 12/18/2018 19:32:00 12/18/2018 21:38:00 DIS Emergency SHANELL HANLEY APRN [facility] ER VOMITTING BLOOD [id number] 08/14/2018 21:08:00 08/15/2018 00:57:00 DIS Emergency ELVIRA BENITEZ MD [facility] ER CP [id number] 10/24/2017 21:17:00 10/24/2017 22:35:00 DIS Emergency CAROL PLASENCIA DO [facility] ER VAG PAIN W BLEEDING [id number] 02/12/2016 10:27:00 02/12/2016 15:30:00 DIS Outpatient CAMRYN CORONA MD [facility] SDC ABD PAIN,N/V [id number] 02/11/2016 11:17:00 02/11/2016 13:54:00 DIS Outpatient CAMRYN CORONA MD [facility] PREOP ABD PAIN,N/V [id number] 02/09/2016 11:09:00 Document Registration [id number] 02/07/2016 16:24:00 ACT Inpatient YOON MAHER DO [facility] 4TH HYPOLKALEMIA,NAUSEA,VOMITING,ABD PAIN
[2019-04-05] MEDS: PROCHLORPERAZINE 10 MG/2ML INJ (COMPAZINE) INJ ONE (16:07)
[2019-04-05] MEDS: DEXAMETHASONE 4 MG/ML SDV (DECADRON) IM ONE (16:07)
[2019-04-05] MEDS: KETOROLAC 60 MG/2 ML VIAL IM ONE (16:08)
[2019-04-05] MEDS: diphenhydrAMINE 25 MG TAB (BENADRYL) PO ONE (16:08)
[2019-04-05] MEDS: ACETAMINOPHEN 500 MG TAB (TYLENOL) PO ONE (16:08)
[2019-04-05 16:19] VITALS: BP 132/89
== END 2019-04-05 16:21 | disposition home or self-care (01) ==
LOC: EDUNIT# 15:24 → ER FS 15:26
DX: G43.909 Migraine, unspecified, not intractable, without status migrainosus (principal); F41.9 Anxiety disorder, unspecified; F32.9 Major depressive disorder, single episode, unspecified; F12.10 Cannabis abuse, uncomplicated; F17.210 Nicotine dependence, cigarettes, uncomplicated; Z97.5 Presence of (intrauterine) contraceptive device; Z80.0 Family history of malignant neoplasm of digestive organs; Z82.49 Family history of ischemic heart disease and other diseases of the circulatory system; Z87.19 Personal history of other diseases of the digestive system; Z98.890 Other specified postprocedural states
CPT/HCPCS: 96372; 99284

== ENCOUNTER 2019-06-01 23:18 | Emergency (ER) | payer SELFPAY ==
[~2019-06-01] VITALS: Ht 160 cm; Wt 83.9 kg
--- OUTSIDE RECORDS SUMMARY | 2019-06-01 23:24 | XMS REPORT | Continuity of Care Document ---
Author Organization Unknown Address Unknown Allergies Active Description Code Type Severity Reaction Onset Reported/Identified Relationship to Patient Clinical Status Yes No Known Drug Allergies [id number] Drug Allergy Unknown N/A 02/20/2019 Medications There [...] F17.210 NICOTINE DEPENDENCE, CIGARETTES, UNCOMPL 10/30/2017 LUIS NAGEL MOREAU CAROL K Ot F32.9 MAJOR DEPRESSIVE [...] F12.10 CANNABIS ABUSE, UNCOMPLICATED 02/27/2019 IVAN KAHN MD Ot F32.9 MAJOR DEPRESSIVE DISORDER, SINGLE EPISOD 02/27/2019 IVAN KAHN MD, Ot F41.9 ANXIETY DISORDER, UNSPECIFIED 02/27/2019 IVAN KAHN MD Ot M54.5 LOW BACK PAIN 02/27/2019 IVAN KAHN MD Ot S39.012A STRAIN OF MUSCLE, FASCIA AND TENDON OF L 02/27/2019 IVAN KAHN MD Ot X58.XXXA EXPOSURE TO OTHER SPECIFIED FACTORS, INI 02/27/2019 IVAN KAHN MD Ot Z80.0 FAMILY HISTORY OF MALIGNANT NEOPLASM OF 02/27/2019 IVAN KAHN MD Ot Z82.49 FAMILY HX OF ISCHEM HEART DIS AND OTH DI 02/27/2019 IVAN KAHN MD, Ot Z87.19 PERSONAL HISTORY OF OTHER DISEASES OF TH 02/27/2019 IVAN KAHN MD Ot Z97.5 PRESENCE OF (INTRAUTERINE) CONTRACEPTIVE 02/27/2019 IVAN KAHN MD Ot Z98.890 OTHER SPECIFIED POSTPROCEDURAL STATES 03/21/2019 DIANNE PAPPAS DO, Ot F32.9 MAJOR DEPRESSIVE DISORDER, SINGLE EPISOD 03/21/2019 DIANNE PAPPAS DO, Ot F41.9 ANXIETY DISORDER, UNSPECIFIED 03/21/2019 DIANNE PAPPAS DO, Ot G43.909 MIGRAINE, UNSP, NOT INTRACTABLE, WITHOUT 03/21/2019 DIANNE PAPPAS DO Ot Z80.0 FAMILY HISTORY OF MALIGNANT NEOPLASM OF 03/21/2019 DIANNE PAPPAS DO Ot Z82.49 FAMILY HX OF ISCHEM HEART DIS AND OTH DI 03/21/2019 DIANNE PAPPAS DO Ot Z87.19 PERSONAL HISTORY OF OTHER DISEASES OF TH 03/21/2019 DIANNE PAPPAS DO Ot Z97.5 PRESENCE OF (INTRAUTERINE) CONTRACEPTIVE 03/21/2019 DIANNE PAPPAS DO Ot Z98.890 OTHER SPECIFIED POSTPROCEDURAL STATES 04/08/2019 JACOB SANZ MD Ot F12.10 CANNABIS ABUSE, UNCOMPLICATED 04/08/2019 JACOB SANZ MD Ot F17.210 NICOTINE DEPENDENCE, CIGARETTES, UNCOMPL 04/08/2019 JACOB SANZ MD Ot F32.9 MAJOR DEPRESSIVE DISORDER, SINGLE EPISOD 04/08/2019 JACOB SANZ MD Ot F41.9 ANXIETY DISORDER, UNSPECIFIED 04/08/2019 JACOB SANZ MD Ot G43.909 MIGRAINE, UNSP, NOT INTRACTABLE, WITHOUT 04/08/2019 JACOB SANZ MD Ot Z80.0 FAMILY HISTORY OF MALIGNANT NEOPLASM OF 04/08/2019 JACOB SANZ MD Ot Z82.49 FAMILY HX OF ISCHEM HEART DIS AND OTH DI 04/08/2019 JACOB SANZ MD, Ot Z87.19 PERSONAL HISTORY OF OTHER DISEASES OF 04/08/2019 JACOB SANZ MD Ot Z97.5 PRESENCE OF (INTRAUTERINE) CONTRACEPTIVE 04/08/2019 JACOB SANZ MD, Ot Z98.890 OTHER SPECIFIED POSTPROCEDURAL STATES [...] FOR INFLUENZA A AND B ANTIGENS BY [facility] Complete blood count (CBC) with automated white [...] Status Pt. Type Provider Facility Loc./Unit Complaint [id number] 04/05/2019 15:26:00 04/05/2019 16:21:00 DIS Outpatient JACOB SANZ MD [facility] ER FS MIGRAINE [id number] 02/20/2019 16:57:00 02/20/2019 18:12:00 DIS Emergency IVAN KAHN MD [facility] ER FS LOW BACK PAIN [id number] 02/16/2019 20:09:00 02/16/2019 20:56:00 DIS Outpatient DIANNE PAPPAS DO [facility] ER FS MIGRAINE [id number] 01/16/2019 07:52:00 01/17/2019 14:00:00 DIS Inpatient NICHOLAS CRISTOBAL DO [facility] 4TH LOWER ABDOMINAL PAIN [id number] 12/18/2018 19:32:00 12/18/2018 21:38:00 DIS Emergency SHANELL HANLEY APRN [facility] ER VOMITTING BLOOD [id number] 08/14/2018 21:08:00 08/15/2018 00:57:00 DIS Emergency ELVIRA BENITEZ MD [facility] ER CP [id number] 10/24/2017 21:17:00 10/24/2017 22:35:00 DIS Emergency CAROL PLASENCIA DO [facility] ER VAG PAIN W BLEEDING [id number] 02/12/2016 10:27:00 02/12/2016 15:30:00 DIS Outpatient CAMRYN CORONA MD [facility] SDC ABD PAIN,N/V [id number] 02/11/2016 11:17:00 02/11/2016 13:54:00 DIS Outpatient CAMRYN CORONA MD [facility] PREOP ABD PAIN,N/V [id number] 02/09/2016 11:09:00 Document Registration [id number] 02/07/2016 16:24:00 ACT Inpatient YOON MAHER DO [facility] 4TH HYPOLKALEMIA,NAUSEA,VOMITING,ABD PAIN
--- NOTE | 2019-06-02 00:41 | ED Integumentary General ---
General Stated Complaint: BOIL ON VAGINAL AREA Source: patient Exam Limitations: no limitations History of Present Illness Date Seen by Provider: Jun 02, 2019 Time Seen by Provider: 00:25 Initial Comments The patient is a pleasant 33-year-old female who presents for evaluation of a painful lesion just lateral to her left labia which she first noticed a few days ago. She states that she has some discomfort when walking. She says she has similar lesion which was larger a few years ago on the opposite side of her groin. She says this lesion was drained. She has no other complaints at this time and denies fevers or chills. She denies history of MRSA. The patient reports that she does shave with a razor. Timing/Duration: other (a few days) Severity: moderate Location: genitalia Associated Symptoms: denies symptoms Allergies and Home Medications Allergies Coded Allergies: No Known Drug Allergies (Verified , 02/20/19) Home Medications Cyclobenzaprine HCl 10 Mg Tablet, 10 MG PO Q8H PRN for SPASMS Prescribed by: IVAN KAHN on 02/20/191758 Naproxen 500 Mg Tablet, 500 MG PO BID Prescribed by: IVAN KAHN on 02/20/191758 Patient Home Medication List Home Medication List Reviewed: Yes Review of Systems Review of Systems Constitutional: no symptoms reported EENTM: no symptoms reported Respiratory: no symptoms reported Cardiovascular: no symptoms reported Gastrointestinal: no symptoms reported 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: no symptoms reported Musculoskeletal: no symptoms reported Skin: other (painful lesion just left of the left labia) Psychiatric/Neurological: No Symptoms Reported Endocrine: No Symptoms Reported Hematologic/Lymphatic: No Symptoms Reported All Other Systems Reviewed Negative Unless Noted: Yes Past Xxacbir-Kxgvfl-Cnsrak Hx Past Med/Social Hx: Reviewed Nursing Past Med/Soc Hx Patient Social History Drug of Choice: marijuana Type Used: Cigarettes 2nd Hand Smoke Exposure: No Recent Foreign Travel: No Contact w/Someone Who Travel: No Recent Hopitalizations: No Immunizations Up To Date Tetanus Booster (TDap): Unknown PED Vaccines UTD: Yes Seasonal Allergies Seasonal Allergies: No Past Medical History Surgeries: Yes Abdominal, Section, Gallbladder Respiratory: No Currently Using CPAP: No Currently Using BIPAP: No Cardiac: No Neurological: Yes Headaches /Migraines 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 Disorders: No 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: No Gastrointestinal: Yes Diverticulosis Musculoskeletal: No Endocrine: No HEENT: No Loss of Vision: Denies Hearing Impairment: Denies Cancer: No Psychosocial: No Anxiety, Depression Integumentary: No Blood Disorders: No Adverse Reaction/Blood Tranf: No Family Medical History Arthritis 19 MOTHER GRANDMA-MATERAL Colon cancer GRANDP-MATERANL Completed stroke 19 FATHER Congenital disease 19 FATHER Congenital heart disease 19 FATHER Diabetes mellitus 19 FATHER GRANDMA-MATERAL Hypercholesterolemia Myocardial infarction 19 FATHER GRANDP-MATERANL Heart Disease, Cancer, Diabetes Physical Exam Vital Signs Capillary Refill : General Appearance: WD/WN, no apparent distress HEENT: PERRL/EOMI, normal ENT inspection Neck: non-tender, full range of motion, supple Cardiovascular: regular rate, rhythm, no edema Respiratory: lungs clear, normal breath sounds, no respiratory distress Extremities: normal range of motion, normal inspection, no pedal edema, no calf tenderness Neurologic/Psychiatric: meal attendant II-XII nml as tested, no motor/sensory deficits, alert, normal mood/affect, oriented x 3 Skin: normal color, warm/dry, other (tender lesion with deep induration just left of the left labia, this could represent an early abscess however there is no fluctuance or indication for incision and drainage at this time.) Lymphatic: no adenopathy Progress/Results/Core Measures Progress Progress Note : Progress Note @0035 - Explained to the patient that it appears this is a likely cellulitis versus early abscess but that it does not appear to be ready for drainage at this time. She expresses verbal understanding and agreement with this plan. She will be given antibiotics in the emergency department as well as a prescription to go home with. She denies any other complaints and is stable for discharge at this time. Departure Impression Primary Impression: Folliculitis Additional Impression: Cellulitis of groin, left Disposition: HOME, SELF-CARE Condition: Stable Departure-Patient Inst. Decision time for Depature: 00:35 Referrals: NO,LOCAL PHYSICIAN (PCP) Primary Care Physician TYRA WALKER MD (Family) Primary Care Physician Patient Instructions: Folliculitis, Cellulitis (Skin Infection), Adult (DC) Add. Discharge Instructions: To the prescribed medicine as directed. Follow-up with your doctor in the next 2-3 days. Return to the ER immediately for new or worsening symptoms. Scripts Hydrocodone/Acetaminophen (Canon 5-325 Tablet) 1 Each Tablet 1 TAB PO Q4-6HR for Pain MDD 10 TABS for 7 Days, #15 TAB Prov: AMALIA ROBERSON DO 06/02/19 Cephalexin (Keflex) 500 Mg Capsule 500 MG PO TID for 10 Days, #30 CAP Prov: AMALIA ROBERSON DO 06/02/19 Sulfamethoxazole/Trimethoprim (Bactrim Ds Tablet) 1 Each Tablet 1 EACH PO BID for 10 Days, #20 TAB Prov: AMALIA ROBERSON DO 06/02/19 AMALIA ROBERSON DO Jun 02, 2019 00:40
[2019-06-02] MEDS ORDERED: HYDR-4226 PO (00:42)
[2019-06-02] MEDS ORDERED: SULF1TAB35 PO (00:42)
[2019-06-02] MEDS ORDERED: CEPH-507 PO (00:42)
[2019-06-02] MEDS ORDERED: IBUPROFEN 600 MG (MOTRIN) TAB PO ONE (00:45)
[2019-06-02] MEDS ORDERED: TRIM/SULFAMETH 160/800 (SEPTRA DS) TAB PO ONE (00:45)
[2019-06-02] MEDS ORDERED: CEPHALEXIN 250 MG (KEFLEX) CAP PO ONE (00:45)
[2019-06-02 00:58] VITALS: BP 150/86
== END 2019-06-02 00:58 | disposition home or self-care (01) ==
LOC: EDUNIT# 23:18 → ER FS 23:19
DX: L03.314 Cellulitis of groin (principal); L73.9 Follicular disorder, unspecified; G43.909 Migraine, unspecified, not intractable, without status migrainosus; F41.9 Anxiety disorder, unspecified; F32.9 Major depressive disorder, single episode, unspecified; Z80.0 Family history of malignant neoplasm of digestive organs; Z87.19 Personal history of other diseases of the digestive system
CPT/HCPCS: 99283

== ENCOUNTER 2019-06-05 14:32 | Emergency (ER) | payer SELFPAY ==
[~2019-06-05] VITALS: Ht 165.1 cm; Wt 88.9 kg
[~2019-06-05 14:32] MED LIST changes: +CEPH-507 PO; +HYDR-4226 PO; +SULF1TAB35 PO
--- NOTE | 2019-06-05 14:35 | NUR ---
Patient arrival to ED and ambulatory to ED RM 05. Pt very tearful reporting severe pain at left labia area. Pt seen in ER 06/03/19 for same and was placed on antibiotics. There was no I&D performed on the . Pt seen at [facility] and referred to ER, unable to achieve pain control to perform an I&D.
--- OUTSIDE RECORDS SUMMARY | 2019-06-05 14:42 | XMS REPORT | Continuity of Care Document ---
Author Organization Unknown Address Unknown Phone Unavailable Allergies Active Description Code Type Severity Reaction Onset Reported/Identified Relationship to Patient Clinical Status Yes No Known Drug Allergies [id number] Drug Allergy Unknown N/A 02/20/2019 Medications There is no data. Problems Date Dx Coded Attending Type Code Diagnosis Diagnosed By 02/08/2016 YOON MAHER DO Ot E87.6 HYPOKALEMIA 02/08/2016 TRAE MAHER DOI Ot F17.210 NICOTINE DEPENDENCE, CIGARETTES, UNCOMPL 02/08/2016 GUNNAR MOREAU YOON Ot R10.11 RIGHT UPPER QUADRANT PAIN 02/08/2016 MAHERMATTIE MOREAU YOON Ot R11.2 NAUSEA WITH VOMITING, UNSPECIFIED 02/08/2016 GUNNAR MOREAU YOON Ot E87.6 02/08/2016 MAHER , YOON Ot F17.210 02/08/2016 MAHERMATTIE MOREAU YOON Ot R10.11 02/08/2016 MAHER DO, YOON Ot R11.2 02/09/2016 Ot F12.10 CANNABIS ABUSE, UNCOMPLICATED 02/09/2016 Ot F17.210 NICOTINE DEPENDENCE, CIGARETTES, UNCOMPL 02/09/2016 Ot R10.84 GENERALIZED ABDOMINAL PAIN 02/09/2016 Ot R11.2 NAUSEA WITH VOMITING, UNSPECIFIED 02/11/2016 Ot F12.10 02/11/2016 Ot F17.210 02/11/2016 Ot R10.84 02/11/2016 Ot R11.2 02/11/2016 CAMRYN CORONA MD Ot Z01.818 ENCOUNTER FOR OTHER PREPROCEDURAL EXAMIN 02/12/2016 CAMRYN OCRONA MD Ot K21.0 GASTRO-ESOPHAGEAL REFLUX DISEASE WITH [...] F41.9 ANXIETY DISORDER, UNSPECIFIED 10/24/2017 CAROL PLASENCIA DO, Ot N93.8 OTHER SPECIFIED ABNORMAL UTERINE AND VAG 10/24/2017 CAROL PLASENCIA DO, Ot N99.821 POSTPROC HEMOR OF A SYS [...] OF MALIGNANT NEOPLASM, UN 10/30/2017 LUIS ANGEL DO CAROL K Ot Z82.49 FAMILY HX OF ISCHEM HEART DIS AND OTH DI 10/30/2017 LUIS ANGEL DO CAROL Weller Ot Z87.59 PERSONAL HISTORY OF COMP OF PREG, CHLDBR 08/15/2018 ELI LAWRENCE, ELVIRA Mckoy Ot F17.210 NICOTINE DEPENDENCE, CIGARETTES, UNCOMPL 08/15/2018 [...] LAWRENCE, ELVIRA Mckoy Ot R07.81 PLEURODYNIA 08/16/2018 ELI LAWRENCE, ELVIRA Mckoy Ot Z80.0 FAMILY HISTORY OF MALIGNANT NEOPLASM OF 08/16/2018 ELI LAWRENCE, ELVIRA Mckoy Ot Z82.49 FAMILY HX OF ISCHEM HEART DIS AND OTH DI 08/16/2018 ELI LAWRENCE, ELVIRA Mckoy Ot Z87.19 PERSONAL HISTORY OF OTHER DISEASES OF TH 08/16/2018 ELI LAWRENCE, ELVIRA Mckoy Ot Z98.890 OTHER SPECIFIED POSTPROCEDURAL STATES 12/18/2018 SHANELL HANLEY APRN Ot F17.210 NICOTINE DEPENDENCE, CIGARETTES, UNCOMPL 12/18/2018 SHANELL HANLEY APRN Ot F32.9 MAJOR DEPRESSIVE DISORDER, SINGLE EPISOD 12/18/2018 SHANELL HANLEY APRN Ot F41.9 ANXIETY DISORDER, UNSPECIFIED 12/18/2018 SHANELL HANLEY TRIMMER MACHINE Ot K92.0 HEMATEMESIS 12/18/2018 SHANELL HANLEY APRN Ot R10.13 EPIGASTRIC PAIN 12/18/2018 SHANELL HANLEY APRN Ot Z80.0 FAMILY HISTORY OF MALIGNANT NEOPLASM OF 12/18/2018 SHANELL HANLEY TRIMMER MACHINE Ot Z82.49 FAMILY HX OF ISCHEM HEART [...] APRN Ot K92.0 HEMATEMESIS 12/20/2018 SHANELL HANLEY TRIMMER MACHINE Ot R10.13 EPIGASTRIC PAIN 12/20/2018 SHANELL HANLEY [...] DEPENDENCE, CIGARETTES, UNCOMPL 01/17/2019 LEVAR MOREAU NICHOLAS K Ot F32.9 MAJOR DEPRESSIVE DISORDER, SINGLE EPISOD 01/17/2019 LEVAR MOREAU NICHOLAS Janee Ot F41.9 ANXIETY DISORDER, UNSPECIFIED 01/17/2019 LEVAR MOREAU NICHOLAS Janee Ot K57.32 DVTRCLI OF LG INT W/O PERFORATION OR ABS 01/17/2019 LEVAR MOREAU NICHOLAS K Ot N83.02 FOLLICULAR CYST OF LEFT OVARY 02/20/2019 FEMI LAWRENCE, IVAN Warner Ot F12.10 CANNABIS ABUSE, UNCOMPLICATED 02/20/2019 IVAN KAHN MD, Ot F32.9 MAJOR DEPRESSIVE DISORDER, SINGLE EPISOD 02/20/2019 IVAN KAHN MD, Ot F41.9 ANXIETY DISORDER, UNSPECIFIED 02/20/2019 IVAN KAHN MD, Ot M54.5 LOW BACK PAIN 02/20/2019 IVAN KAHN MD, Ot S39.012A STRAIN OF MUSCLE, FASCIA AND TENDON OF L 02/20/2019 IVAN KAHN MD Ot X58.XXXA EXPOSURE TO OTHER SPECIFIED FACTORS, INI 02/20/2019 IVAN KAHN MD, Ot Z80.0 FAMILY HISTORY OF MALIGNANT NEOPLASM OF 02/20/2019 IVAN KAHN MD, Ot Z82.49 FAMILY HX OF ISCHEM HEART DIS AND OTH DI 02/20/2019 IVAN KAHN MD, Ot Z87.19 PERSONAL HISTORY OF OTHER DISEASES OF TH 02/20/2019 IVAN KAHN MD, Ot Z97.5 PRESENCE OF (INTRAUTERINE) CONTRACEPTIVE 02/20/2019 IVAN KAHN MD, Ot Z98.890 OTHER SPECIFIED POSTPROCEDURAL STATES 02/23/2019 IVAN KAHN MD, Ot F12.10 CANNABIS ABUSE, UNCOMPLICATED 02/23/2019 IVAN KAHN MD, Ot F32.9 MAJOR DEPRESSIVE DISORDER, SINGLE EPISOD 02/23/2019 IVAN KAHN MD, Ot F41.9 ANXIETY DISORDER, UNSPECIFIED 02/23/2019 IVAN KAHN MD, Ot M54.5 LOW BACK PAIN 02/23/2019 IVAN KAHN MD, Ot S39.012A STRAIN OF MUSCLE, FASCIA AND TENDON OF L 02/23/2019 IVAN KAHN MD Ot X58.XXXA EXPOSURE TO OTHER SPECIFIED FACTORS, INI 02/23/2019 IVAN KAHN MD Ot Z80.0 FAMILY HISTORY OF MALIGNANT NEOPLASM OF 02/23/2019 IVAN KAHN MD, Ot Z82.49 FAMILY HX OF ISCHEM HEART DIS AND OTH DI 02/23/2019 IVAN KAHN MD Ot Z87.19 PERSONAL HISTORY OF OTHER DISEASES OF TH 02/23/2019 IVAN KAHN MD Ot Z97.5 PRESENCE OF (INTRAUTERINE) CONTRACEPTIVE 02/23/2019 IVAN KAHN MD Ot Z98.890 OTHER SPECIFIED POSTPROCEDURAL STATES 02/27/2019 IVAN KAHN MD, Ot F12.10 CANNABIS ABUSE, UNCOMPLICATED 02/27/2019 IVAN KAHN MD Ot F32.9 MAJOR DEPRESSIVE DISORDER, SINGLE EPISOD 02/27/2019 IVAN KAHN MD, Ot F41.9 ANXIETY DISORDER, UNSPECIFIED 02/27/2019 IVAN KAHN MD, Ot M54.5 LOW BACK PAIN 02/27/2019 IVAN KAHN MD Ot S39.012A STRAIN OF MUSCLE, FASCIA AND TENDON OF L 02/27/2019 VIAN KAHN MD Ot X58.XXXA EXPOSURE TO OTHER [...] DO, Ot Z98.890 OTHER SPECIFIED POSTPROCEDURAL STATES 04/05/2019 JACOB SANZ MD Ot F12.10 CANNABIS ABUSE, UNCOMPLICATED 04/05/2019 JACOB SANZ MD Ot F17.210 NICOTINE DEPENDENCE, CIGARETTES, UNCOMPL 04/05/2019 JACOB SANZ MD Ot F32.9 MAJOR DEPRESSIVE DISORDER, SINGLE EPISOD 04/05/2019 JACOB SANZ MD Ot F41.9 ANXIETY DISORDER, UNSPECIFIED 04/05/2019 JACOB SANZ MD Ot G43.909 MIGRAINE, UNSP, NOT INTRACTABLE, WITHOUT 04/05/2019 JACOB SANZ MD Ot Z80.0 FAMILY HISTORY OF MALIGNANT NEOPLASM OF 04/05/2019 JACOB SANZ MD Ot Z82.49 FAMILY HX OF ISCHEM HEART DIS AND OTH DI 04/05/2019 JACOB SANZ MD Ot Z87.19 PERSONAL HISTORY OF OTHER DISEASES OF TH 04/05/2019 JACOB SANZ MD Ot Z97.5 PRESENCE OF (INTRAUTERINE) CONTRACEPTIVE 04/05/2019 JACOB SANZ MD Ot Z98.890 OTHER SPECIFIED POSTPROCEDURAL STATES 04/08/2019 [...] DIS AND OTH DI 04/08/2019 JACOB SANZ MD Ot Z87.19 PERSONAL HISTORY OF OTHER DISEASES OF TH 04/08/2019 JACOB SANZ MD Ot Z97.5 PRESENCE OF (INTRAUTERINE) CONTRACEPTIVE 04/08/2019 JACOB SANZ MD Ot Z98.890 OTHER SPECIFIED POSTPROCEDURAL STATES Procedures [...] FOR INFLUENZA A AND B ANTIGENS BY [facility] Complete blood count (CBC) with automated white [...] Status Pt. Type Provider Facility Loc./Unit Complaint [id number] 06/01/2019 23:19:00 06/02/2019 00:58:00 DIS Emergency DA HOLLAND DO [facility] ER FS BOIL ON VAGINAL AREA [id number] 04/05/2019 15:26:00 04/05/2019 16:21:00 DIS Emergency JACOB SANZ MD [facility] ER FS MIGRAINE [id number] 02/20/2019 16:57:00 02/20/2019 18:12:00 DIS Emergency IVAN KAHN MD [facility] ER FS LOW BACK PAIN [id number] 02/16/2019 20:09:00 02/16/2019 20:56:00 DIS Outpatient DIANNE PAPPAS DO [facility] ER FS MIGRAINE [id number] 01/16/2019 07:52:00 01/17/2019 14:00:00 DIS Inpatient NICHOLAS CRISTOBAL DO [facility] 4TH LOWER ABDOMINAL PAIN [id number] 12/18/2018 19:32:00 12/18/2018 21:38:00 DIS Emergency SHANELL HANLEY APRN [facility] ER VOMITTING BLOOD [id number] 08/14/2018 21:08:00 08/15/2018 00:57:00 DIS Emergency ELVIRA BENITEZ MD [facility] ER CP [id number] 10/24/2017 21:17:00 10/24/2017 22:35:00 DIS Emergency LUIS ANGEL CAROL MOREAU [facility] ER VAG PAIN W BLEEDING [id number] 02/12/2016 10:27:00 02/12/2016 15:30:00 DIS Outpatient CAMRYN CORONA MD [facility] SDC ABD PAIN,N/V [id number] 02/11/2016 11:17:00 02/11/2016 13:54:00 DIS Outpatient CAMRYN CORONA MD [facility] PREOP ABD PAIN,N/V [id number] 06/05/2019 14:34:00 ACT Emergency DONY HERNANDEZ DO [facility] ER FS VAGINAL ABSCESS [id number] 02/09/2016 11:09:00 Document Registration [id number] 02/07/2016 16:24:00 ACT Inpatient YOON MAHER DO [facility] 4TH HYPOLKALEMIA,NAUSEA,VOMITING,ABD PAIN
[2019-06-05] MEDS ORDERED: LIDOCAINE 1% INJ 20 ML 20 ML VIAL ONE (14:56)
--- NOTE | 2019-06-05 14:58 | ED Integumentary General ---
General Chief Complaint: Skin/Wound Problems Stated Complaint: VAGINAL ABSCESS History of Present Illness Date Seen by Provider: Jun 05, 2019 Time Seen by Provider: 14:40 Initial Comments 33-year-old female presents with right labial swelling. Patient was seen 4 days ago diagnosed with labial cellulitis and folliculitis that there is no abscess at that time. Patient reports that since then the pain got significantly worse, she has some increased swelling and tenderness and firmness to the area with some minor fluctuance. She denies any fevers, chills, nausea or vomiting. Patient reports that she often shaves her labia and it happened after this. She reports no other concerns or complaints at this time Allergies and Home Medications Allergies Coded Allergies: No Known Drug Allergies (Verified , 02/20/19) Home Medications Cephalexin 500 Mg Capsule, 500 MG PO TID Prescribed by: AMALIA ROBERSON on 06/02/1942 Cyclobenzaprine HCl 10 Mg Tablet, 10 MG PO Q8H PRN for SPASMS Prescribed by: IVAN KAHN on 02/20/191758 Hydrocodone/Acetaminophen 1 Each Tablet, 1 TAB PO Q4-6HR Prescribed by: AMALIA ROBERSON on 06[birth year]02/1941 Naproxen 500 Mg Tablet, 500 MG PO BID Prescribed by: IVAN KAHN on 02/20/191758 Sulfamethoxazole/Trimethoprim 1 Each Tablet, 1 EACH PO BID Prescribed by: AMALIA ROBERSON on 06[birth year]02/1941 Patient Home Medication List Home Medication List Reviewed: Yes Review of Systems Review of Systems Constitutional: No chills, No fever Respiratory: no symptoms reported Cardiovascular: no symptoms reported; No chest pain Gastrointestinal: No abdominal pain 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: see HPI : No Skin: see HPI Past Mjcxdot-Jcdqww-Ubccjy Hx Past Med/Social Hx: Reviewed Nursing Past Med/Soc Hx Patient Social History Alcohol Use: Denies Use Recreational Drug Use: No (hx of) Drug of Choice: marijuana Type Used: Cigarettes 2nd Hand Smoke Exposure: No Recent Hopitalizations: No Physical Abuse: No Sexual Abuse: No Mistreated: No Fear: No Immunizations Up To Date Tetanus Booster (TDap): Unknown PED Vaccines UTD: Yes Seasonal Allergies Seasonal Allergies: No Past Medical History Surgeries: Yes Abdominal, Section, Gallbladder Respiratory: No Currently Using CPAP: No Currently Using BIPAP: No Cardiac: No Neurological: Yes Headaches /Migraines 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 Disorders: No 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: No Gastrointestinal: Yes Diverticulosis Musculoskeletal: No Endocrine: No HEENT: No Loss of Vision: Denies Hearing Impairment: Denies Cancer: No Psychosocial: No Anxiety, Depression Integumentary: No Blood Disorders: No Adverse Reaction/Blood Tranf: No Family Medical History Arthritis 19 MOTHER GRANDMA-MATERAL Colon cancer GRANDP-MATERANL Completed stroke 19 FATHER Congenital disease 19 FATHER Congenital heart disease 19 FATHER Diabetes mellitus 19 FATHER GRANDMA-MATERAL Hypercholesterolemia Myocardial infarction 19 FATHER GRANDP-MATERANL Heart Disease, Cancer, Diabetes Physical Exam Vital Signs Vital Signs - First Documented 06/05/19 14:35 Temp 98.5 Pulse 104 Resp 20 B/P (MAP) 128/85 (99) Pulse Ox 98 O2 Delivery Room Air Capillary Refill : General Appearance: WD/WN, no apparent distress Cardiovascular: normal peripheral pulses, regular rate, rhythm Respiratory: chest non-tender, lungs clear Neurologic/Psychiatric: alert, normal mood/affect Skin: other (Large labial induration with small area of fluctuance with an approximate 4 x 4 area of cellulitis) Skin Problem Character: abscess (Left labial) Procedures/Interventions I&D : Site: left labia Blade Size: 11 I & D Procedure: betadine prep, sterile drapes applied Packing/Drain: Idoform 11/11 Progress Patient was prepped in normal sterile fashion. Patient was prepped with chlorhexidine. An approximate half inch incision was made in her left labia. A large amount of purulent bloody discharge was expressed. Quarter-inch iodoform packing was placed. Patient tolerated without difficulty. Patient was ane sthetized with approximately 5 cc of lidocaine. Progress/Results/Core Measures Results/Orders My Orders Orders - DONY HERNANDEZ DO Fentanyl Injection (Sublimaze Injection (06/05/19 15:00) Lidocaine 2% Injection 20 Ml (Xylocaine (06/05/19 15:00) Basic Metabolic Panel (06/05/19 14:58) Cbc With Automated Diff (06/05/19 14:58) Wound Culture (06/05/19 14:58) Lidocaine 1% Inj 20 Ml (Xylocaine 1% Inj (06/05/19 14:56) Vital Signs/I&O 06/05/19 14:35 Temp 98.5 Pulse 104 Resp 20 B/P (MAP) 128/85 (99) Pulse Ox 98 O2 Delivery Room Air Departure Impression Primary Impression: Abscess of left genital labia Disposition: HOME, SELF-CARE Condition: Stable Departure-Patient Inst. Referrals: AMARIS MARIA DO Call for an appointment upon discharge for recheck of symptoms in his office on 06/07/2019 TYRA WALKER MD (PCP/Family) Primary Care Physician Patient Instructions: Skin Abscess Add. Discharge Instructions: Return to the ER as needed if symptoms worsen for admission and IV antibiotics if needed All discharge instructions reviewed with patient and/or family. Voiced understanding. Scripts Hydrocodone Bit/Acetaminophen (Hydrocodone/Acetaminophen 5/325mg Tablet) 1 Tab Tab 1 EACH PO Q8H PRN for PAIN-MODERATE MDD 10 for 3 Days, #6 TAB Prov: DONY HERNANDEZ DO 06/05/19 Work/School Note: Work Release Form Date Seen in the Emergency Department: Jun 05, 2019 Return to Work: Jun 06, 2019 DONY HERNANDEZ DO Jun 05, 2019 14:58
[2019-06-05] MEDS ORDERED: fentaNYL INJECTION 100 MCG/2 ML AMP IM ONE (15:00)
[2019-06-05] MEDS ORDERED: LIDOCAINE 2% 20 ML (XYLOCAINE) VIAL IJ ONE (15:00)
--- NOTE | 2019-06-05 15:10 | NUR ---
I&D Performed per with RN present. #11 blade utilized after 1% Lidocaine local placed. Immediate expulsion of copious purulent and bloody foul smelling drainage. Culture obtained.
[2019-06-05] MEDS ORDERED: ACHD5005 PO (15:31)
[2019-06-05 15:38] LABS: HEMOGLOBIN 13.1 G/DL (11.5-16.0); MEAN CORPUSCULAR HEMOGLOBIN 30 PG (25-34); WHITE BLOOD COUNT 11.8 10^3/uL (4.3-11.0)
[2019-06-05 15:39] LABS: BASOPHILS # (AUTO) 0.1 10^3/uL (0.0-0.1); BASOPHILS % (AUTO) 1 % (0-10); EOSINOPHILS # (AUTO) 0.3 10^3/uL (0.0-0.3); EOSINOPHILS % (AUTO) 2 % (0-10); HEMATOCRIT 39 % (35-52); LYMPHOCYTES # (AUTO) 2.3 X 10^3 (1.0-4.0); LYMPHOCYTES % (AUTO) 19 % (12-44); MEAN CORPUSCULAR HGB CONC 33 G/DL (32-36); MEAN CORPUSCULAR VOLUME 91 FL (80-99); MEAN PLATELET VOLUME 10.2 FL (7.4-10.4); MONOCYTES # (AUTO) 0.8 X 10^3 (0.0-1.0); MONOCYTES % (AUTO) 7 % (0-12); NEUTROPHILS # (AUTO) 8.4 X 10^3 (1.8-7.8); NEUTROPHILS % (AUTO) 71 % (42-75); PLATELET COUNT 342 10^3/uL (130-400); RED CELL DISTRIBUTION WIDTH 13.4 % (10.0-14.5)
[2019-06-05] MEDS ORDERED: LIDOCAINE 1% INJ 20 ML 20 ML VIAL INJ ONE (15:45)
[2019-06-05 15:47] VITALS: BP 105/79
[2019-06-05 15:57] LABS: SODIUM 138 MMOL/L (135-145)
[2019-06-05 15:58] LABS: BUN/CREATININE RATIO 16; CALCIUM 8.8 MG/DL (8.5-10.1); CARBON DIOXIDE 21 MMOL/L (21-32); CHLORIDE 103 MMOL/L (98-107); CREATININE SERUM 0.57 MG/DL (0.60-1.30); GFR ESTIMATED > 60; GLUCOSE 99 MG/DL (70-105)
== END 2019-06-05 15:47 | disposition home or self-care (01) ==
LOC: EDUNIT# 14:32 → ER FS 14:34 → ER 15:47
DX: N76.4 Abscess of vulva (principal); G43.909 Migraine, unspecified, not intractable, without status migrainosus; F32.9 Major depressive disorder, single episode, unspecified; F41.9 Anxiety disorder, unspecified; Z87.19 Personal history of other diseases of the digestive system; Z80.0 Family history of malignant neoplasm of digestive organs; Z82.49 Family history of ischemic heart disease and other diseases of the circulatory system
CPT/HCPCS: 36415; 56405; 80048; 85025; 87070; 87205

== ENCOUNTER 2019-07-03 19:22 | Emergency (ER) | payer SELFPAY ==
[~2019-07-03] VITALS: Ht 165.1 cm; Wt 88.9 kg
[~2019-07-03 19:22] MED LIST changes: +ACHD5005 PO; -OMEP20CA12 PO; +OMEP20CA13 PO
[2019-07-03] MEDS ORDERED: KETOROLAC 30 MG/ML VIAL IVP STA (20:15)
[2019-07-03] MEDS ORDERED: NS IV 1000 ML 1,000 ML IV STA (20:15)
--- NOTE | 2019-07-03 20:17 | ED Cough/URI ---
General Chief Complaint: Cough/Cold/Flu Symptoms Stated Complaint: NAUSEA, FEVER, CHILLS, BODY ACHE Nursing Triage Note: PT PRESENTS TO THE ED AMBULATORY C/O COUGH AND GENERALIZED BODY ACHES THAT ONSET WEDNESDAY. PT STATES SHE HAS BEEN USING OTC IBUPROFEN AND TYLENOL, AFEBRILE ON PRESENTATION. Sepsis Screen: No Definite Risk Source: patient History of Present Illness Date Seen by Provider: Jul 03, 2019 Time Seen by Provider: 20:00 Initial Comments 33-year-old female presenting with generalized body and joint pains as well as some cough and congestion. She states that this is been going on since it was . She has been having fever and chills as well. She has been treating this at home. She last took medication around 3 PM. She has more pain on the right side of her neck and ear. She denies any drainage from her ears. She has headache with some pressure. She denies any significant throat pain or pain with swallowing. She has thrown up approximately 3 times yesterday and 3 times a day before. She denies any diarrhea or pain with urination. She denies any rash or tick bites recently Allergies and Home Medications Allergies Coded Allergies: No Known Drug Allergies (Verified , 02/20/19) Home Medications Azithromycin 250 Mg Tablet, 250 MG PO DAILY Prescribed by: EMILIE STOREY on 07/03/192219 Cephalexin 500 Mg Capsule, 500 MG PO TID Prescribed by: AMALIA ROBERSON on [birth year]1941 Cyclobenzaprine HCl 10 Mg Tablet, 10 MG PO Q8H PRN for SPASMS Prescribed by: IVAN KAHN on 02/20/191758 Hydrocodone Bit/Acetaminophen 1 Tab Tab, 1 EACH PO Q8H PRN for PAIN-MODERATE Prescribed by: DONY HERNANDEZ on 06/05/19 1531 Hydrocodone/Acetaminophen 1 Each Tablet, 1 TAB PO Q4-6HR Prescribed by: AMALIA ROBERSON on [birth year]02/1942 Naproxen 500 Mg Tablet, 500 MG PO BID Prescribed by: IVAN KAHN on 02/20/191758 Sulfamethoxazole/Trimethoprim 1 Each Tablet, 1 EACH PO BID Prescribed by: AMALIA ROBERSON on [birth year]02[birth year]1941 Patient Home Medication List Home Medication List Reviewed: Yes Review of Systems Review of Systems Constitutional: chills, fever, malaise EENTM: ear pain (right-sided), hoarseness, nose congestion (mild); No ear discharge, No throat pain, No throat swelling Respiratory: cough (mild) Cardiovascular: No chest pain Gastrointestinal: No abdominal pain, No diarrhea; nausea, vomiting 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: No dysuria, No frequency, No hematuria Musculoskeletal: joint pain (diffuse) Skin: no symptoms reported Psychiatric/Neurological: No Symptoms Reported Past Tmjarza-Ltzxir-Vvhkjc Hx Past Med/Social Hx: Reviewed Nursing Past Med/Soc Hx Patient Social History Alcohol Use: Denies Use Recreational Drug Use: No Drug of Choice: marijuana Smoking Status: Current Everyday Smoker Type Used: Cigarettes 2nd Hand Smoke Exposure: No Recent Foreign Travel: No Contact w/Someone Who Travel: No Recent Infectious Disease Expo: No Recent Hopitalizations: No Immunizations Up To Date Tetanus Booster (TDap): Less than 5yrs PED Vaccines UTD: Yes Seasonal Allergies Seasonal Allergies: No Past Medical History Surgeries: Yes Abdominal, Section, Gallbladder Respiratory: No Currently Using CPAP: No Currently Using BIPAP: No Cardiac: No Neurological: Yes Headaches /Migraines : No Last Menstrual Period: Jul 03, 2019 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 Disorders: No 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 [employer] DIRECT[employer] History: IUD 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: No Gastrointestinal: Yes Diverticulosis Musculoskeletal: No Endocrine: No HEENT: No Loss of Vision: Denies Hearing Impairment: Denies Cancer: No Psychosocial: No Anxiety, Depression Integumentary: No Blood Disorders: No Adverse Reaction/Blood Tranf: No Family Medical History Arthritis 19 MOTHER GRANDMA-MATERAL Colon cancer GRANDP-MATERANL Completed stroke 19 FATHER Congenital disease 19 FATHER Congenital heart disease 19 FATHER Diabetes mellitus 19 FATHER GRANDMA-MATERAL Hypercholesterolemia Myocardial infarction 19 FATHER GRANDP-MATERANL Heart Disease, Cancer, Diabetes Physical Exam Vital Signs - First Documented 07/03/19 19:38 Temp 96.4 Pulse 76 Resp 20 B/P (MAP) 129/91 (104) Pulse Ox 98 O2 Delivery Room Air Capillary Refill : Less Than 3 Seconds Height: 5'5.00" Weight: 196lbs. 0.0oz. [id number]; 33.7 BMI Method:Stated General Appearance: WD/WN, no apparent distress Eyes: Bilateral Eye PERRL, Bilateral Eye EOMI HEENT: PERRL/EOMI; No photophobia; TM abnormal (R) (erythema with some effusion.Mild dullness to the eardrum), TM abnormal (L) (effusion is present), pharyngeal erythema; No tonsillar exudate Neck: non-tender, full range of motion, supple, normal inspection Respiratory: chest non-tender, lungs clear, normal breath sounds, no respiratory distress, no accessory muscle use Cardiovascular: normal peripheral pulses, regular rate, rhythm Gastrointestinal: normal bowel sounds, non tender, soft, no pulsatile mass Extremities: normal range of motion, non-tender, normal inspection, no pedal edema, no calf tenderness Neurologic/Psychiatric: figure skater II-XII nml as tested, no motor/sensory deficits, alert Skin: normal color, warm/dry; No rash Progress/Results/Core Measures Suspected Sepsis Recent Fever Within 48 Hours: No Infection Criteria Present: Suspected New Infection New/Unexplained Altered Menta: No Sepsis Screen: No Definite Risk SIRS Temperature:96.4 Pulse: 76 Respiratory Rate: 20 Laboratory Tests 07/03/19 20:27: White Blood Count 10.9 Blood Pressure 129 /91 Mean: 104 Laboratory Tests 07/03/19 20:27: Creatinine 0.76, Platelet Count 312, Total Bilirubin 0.2 Results/Orders Lab Results Laboratory Tests Test 07/03/19 20:25 07/03/19 20:27 Range/Units Urine Color YELLOW Urine Clarity CLEAR Urine pH 6.0 5-9 Urine Specific [place] 1.020 1.016-1.022 Urine Protein NEGATIVE NEGATIVE Urine Glucose (UA) NEGATIVE NEGATIVE Urine Ketones NEGATIVE NEGATIVE Urine Nitrite NEGATIVE NEGATIVE Urine Bilirubin NEGATIVE NEGATIVE Urine Urobilinogen 0.2 NORMAL MG/DL Urine Leukocyte Esterase NEGATIVE NEGATIVE Urine RBC (Auto) 3+ H NEGATIVE Urine RBC NONE /HPF Urine WBC 0-2 /HPF Urine Squamous Epithelial Cells 2-5 /HPF Urine Crystals NONE /LPF Urine Bacteria NEGATIVE /HPF Urine Casts NONE /LPF Urine Mucus NONE /LPF Urine Culture Indicated NO White Blood Count 10.9 4.3-11.0 10^3/uL Red Blood Count 4.38 4.35-5.85 10^6/uL Hemoglobin 13.3 11.5-16.0 G/DL Hematocrit 40 35-52 % Mean Corpuscular Volume 92 80-99 FL Mean Corpuscular Hemoglobin 30 25-34 PG Mean Corpuscular Hemoglobin Concent 33 32-36 G/DL Red Cell Distribution Width 13.5 10.0-14.5 % Platelet Count 312 130-400 10^3/uL Mean Platelet Volume 10.8 H 7.4-10.4 FL Neutrophils (%) (Auto) 53 42-75 % Lymphocytes (%) (Auto) 36 12-44 % Monocytes (%) (Auto) 8 0-12 % Eosinophils (%) (Auto) 3 0-10 % Basophils (%) (Auto) 1 0-10 % Neutrophils # (Auto) 5.7 1.8-7.8 X 10^3 Lymphocytes # (Auto) 3.9 1.0-4.0 X 10^3 Monocytes # (Auto) 0.9 0.0-1.0 X 10^3 Eosinophils # (Auto) 0.3 0.0-0.3 10^3/uL Basophils # (Auto) 0.1 0.0-0.1 10^3/uL Sodium Level 141 135-145 MMOL/L Potassium Level 3.7 3.6-5.0 MMOL/L Chloride Level 103 98-107 MMOL/L Carbon Dioxide Level 26 21-32 MMOL/L Anion Gap 12 5-14 MMOL/L Blood Urea Nitrogen 11 7-18 MG/DL Creatinine 0.76 0.60-1.30 MG/DL Estimat Glomerular Filtration Rate > 60 BUN/Creatinine Ratio 14 Glucose Level 90 70-105 MG/DL Calcium Level 9.2 8.5-10.1 MG/DL Corrected Calcium 9.1 8.5-10.1 MG/DL Total Bilirubin 0.2 0.1-1.0 MG/DL Aspartate Amino Transf (AST/SGOT) 16 5-34 U/L Alanine Aminotransferase (ALT/SGPT) 16 0-55 U/L Alkaline Phosphatase 57 40-136 U/L Total Protein 7.0 6.4-8.2 GM/DL Albumin 4.1 3.2-4.5 GM/DL My Orders Orders - EMILIE STOREY MD Cbc With Automated Diff (07/03/19 20:15) Comprehensive Metabolic Panel (07/03/19 20:15) Ua Culture If Indicated (07/03/19 20:15) Ed Iv/Invasive Line Start (07/03/19 20:15) Ns Iv 1000 Ml (Sodium Chloride 0.9%) (07/03/19 20:15) Ketorolac Injection (Toradol Injection) (07/03/19 20:15) Ceftriaxone For Iv Use (Rocephin For I (07/03/19 21:55) Azithromycin Tablet (Zithromax Tablet) (07/03/19 21:55) Vital Signs/I&O 07/03/19 07/03/19 07/03/19 19:38 19:38 22:27 Temp 96.4 96.4 Pulse 76 79 Resp 20 20 B/P (MAP) 129/91 (104) 131/90 (104) Pulse Ox 98 100 O2 Delivery Room Air Room Air Room Air Capillary Refill : Less Than 3 Seconds Blood Pressure Mean: 104 Progress Note #1: Progress Note Will obtain basic labs and check her urine as well. Give her some IV fluids for hydration and as well as a dose toradol. She may need antibiotics for her ear and treatment for the upper respiratory and sinus type infection. Progress Note #2: Progress Note Labs all stable without acute significant abnormality. Pt feels a little better after treatment in ED. Treat for otitis media and upper respiratory infection/sinus infection with Z pack and have her check with clinic for continued problems/concerns. Departure Impression Primary Impression: Right otitis media with effusion Additional Impression: Upper respiratory infection with cough and congestion Disposition: 01 HOME, SELF-CARE Condition: Stable Departure-Patient Inst. Decision time for Depature: 22:19 Referrals: TYRA WALKER MD (PCP/Family) Primary Care Physician Patient Instructions: Bacterial Upper Respiratory Infection, Adult (DC), Ear Infections (Otitis Media) (DC) Add. Discharge Instructions: Stay well hydrated and get plenty of rest Follow up with clinic for continued problems/concerns Take the full course of antibiotics All discharge instructions reviewed with patient and/or family. Voiced understanding. Scripts Azithromycin (Azithromycin) 250 Mg Tablet 250 MG PO DAILY for 4 Days, #4 TAB 0 Refills Prov: EMILIE STOREY MD 07/03/19 EMILIE STOREY MD Jul 03, 2019 20:17
[2019-07-03 20:36] LABS: BACTERIA,URINE NEGATIVE /HPF; BILIRUBIN,URINE NEGATIVE (NEGATIVE); CLARITY,URINE CLEAR; COLOR,URINE YELLOW; GLUCOSE, URINE (UA) NEGATIVE (NEGATIVE); KETONES,URINE NEGATIVE (NEGATIVE); LEUKOCYTE ESTERASE ,URINE NEGATIVE (NEGATIVE); NITRITE,URINE NEGATIVE (NEGATIVE); PROTEIN,URINE NEGATIVE (NEGATIVE); UROBILINOGEN,URINE 0.2 MG/DL (NORMAL); WBC,URINE 0-2 /HPF
[2019-07-03 20:44] LABS: HEMATOCRIT 40 % (35-52); HEMOGLOBIN 13.3 G/DL (11.5-16.0); LYMPHOCYTES % (AUTO) 36 % (12-44); MEAN CORPUSCULAR HEMOGLOBIN 30 PG (25-34); MEAN CORPUSCULAR HGB CONC 33 G/DL (32-36); MEAN CORPUSCULAR VOLUME 92 FL (80-99); MEAN PLATELET VOLUME 10.8 FL (7.4-10.4); NEUTROPHILS % (AUTO) 53 % (42-75); PLATELET COUNT 312 10^3/uL (130-400); RED CELL DISTRIBUTION WIDTH 13.5 % (10.0-14.5); WHITE BLOOD COUNT 10.9 10^3/uL (4.3-11.0)
[2019-07-03 20:45] LABS: BASOPHILS # (AUTO) 0.1 10^3/uL (0.0-0.1); BASOPHILS % (AUTO) 1 % (0-10); EOSINOPHILS # (AUTO) 0.3 10^3/uL (0.0-0.3); EOSINOPHILS % (AUTO) 3 % (0-10); LYMPHOCYTES # (AUTO) 3.9 X 10^3 (1.0-4.0); MONOCYTES # (AUTO) 0.9 X 10^3 (0.0-1.0); MONOCYTES % (AUTO) 8 % (0-12); NEUTROPHILS # (AUTO) 5.7 X 10^3 (1.8-7.8)
[2019-07-03 21:09] LABS: CHLORIDE 103 MMOL/L (98-107); POTASSIUM 3.7 MMOL/L (3.6-5.0); SODIUM 141 MMOL/L (135-145)
[2019-07-03 21:10] LABS: ALANINE AMINOTRANSFERASE 16 U/L (0-55); ALBUMIN 4.1 GM/DL (3.2-4.5); ALKALINE PHOSPHATASE 57 U/L (40-136); BILIRUBIN,TOTAL 0.2 MG/DL (0.1-1.0); BUN/CREATININE RATIO 14; CALCIUM 9.2 MG/DL (8.5-10.1); CARBON DIOXIDE 26 MMOL/L (21-32); CREATININE SERUM 0.76 MG/DL (0.60-1.30); GFR ESTIMATED > 60; GLUCOSE 90 MG/DL (70-105)
[2019-07-03] MEDS ORDERED: AZITHROMYCIN 250 MG TAB (ZITHROMAX) PO STA (21:55)
[2019-07-03] MEDS ORDERED: cefTRIAXone FOR IV USE 1,000 MG in WATER (STERILE) FOR INJECTION 10 ML IV STA (21:55)
[2019-07-03] MEDS ORDERED: AZIT250T12 PO (22:20)
[2019-07-03 22:27] VITALS: BP 131/90
== END 2019-07-03 22:27 | disposition home or self-care (01) ==
LOC: EDUNIT# 19:22 → ER FS 19:24
DX: J06.9 Acute upper respiratory infection, unspecified (principal); H65.91 Unspecified nonsuppurative otitis media, right ear; G43.909 Migraine, unspecified, not intractable, without status migrainosus; F41.9 Anxiety disorder, unspecified; F32.9 Major depressive disorder, single episode, unspecified; F17.210 Nicotine dependence, cigarettes, uncomplicated; Z87.19 Personal history of other diseases of the digestive system; Z80.0 Family history of malignant neoplasm of digestive organs; Z82.49 Family history of ischemic heart disease and other diseases of the circulatory system
CPT/HCPCS: 36415; 80053; 81000; 85025

== ENCOUNTER 2019-09-15 19:40 | Emergency (ER) | payer SELFPAY ==
[~2019-09-15] VITALS: Ht 160 cm; Wt 87.3 kg
[~2019-09-15 19:40] MED LIST changes: +AZIT250T12 PO
--- NOTE | 2019-09-15 19:57 | ED Lower Extremity ---
General Stated Complaint: L FOOT PAIN Source: patient Exam Limitations: no limitations History of Present Illness Date Seen by Provider: Sep 15, 2019 Time Seen by Provider: 19:56 Initial Comments A horse stepped on her left foot earlier today. She complains of pain and swelling to the dorsum of the left foot unable to bear weight Onset: this afternoon Allergies and Home Medications Allergies Coded Allergies: No Known Drug Allergies (Verified , 02/20/19) Home Medications Azithromycin 250 Mg Tablet, 250 MG PO DAILY Prescribed by: EMILIE STOREY on 07/03/192219 Cephalexin 500 Mg Capsule, 500 MG PO TID Prescribed by: AMALIA ROBERSON on [birth year]02[birth year]1941 Cyclobenzaprine HCl 10 Mg Tablet, 10 MG PO Q8H PRN for SPASMS Prescribed by: IVAN KAHN on 02/20/191758 Hydrocodone Bit/Acetaminophen 1 Tab Tab, 1 EACH PO Q8H PRN for PAIN-MODERATE Prescribed by: DONY HERNANDEZ on 06/05/19 1531 Hydrocodone/Acetaminophen 1 Each Tablet, 1 TAB PO Q4-6HR Prescribed by: AMALIA ROBERSON on [birth year]02/1941 Naproxen 500 Mg Tablet, 500 MG PO BID Prescribed by: IVAN KAHN on 02/20/191758 Sulfamethoxazole/Trimethoprim 1 Each Tablet, 1 EACH PO BID Prescribed by: AMALIA ROBERSON on 06/02/1941 Patient Home Medication List Home Medication List Reviewed: Yes Review of Systems Constitutional: no symptoms reported Respiratory: no symptoms reported Cardiovascular: no symptoms reported Musculoskeletal: see HPI Skin: no symptoms reported Past Prljktk-Ibuydn-Gckowe Hx Patient Social History Drug of Choice: marijuana Type Used: Cigarettes 2nd Hand Smoke Exposure: No Recent Foreign Travel: No Contact w/Someone Who Travel: No Recent Hopitalizations: No Immunizations Up To Date Tetanus Booster (TDap): Less than 5yrs PED Vaccines UTD: Yes Seasonal Allergies Seasonal Allergies: No Past Medical History Surgeries: Yes Abdominal, Section, Gallbladder Respiratory: No Currently Using CPAP: No Currently Using BIPAP: No Cardiac: No Neurological: Yes Headaches /Migraines 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 Disorders: No 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: No Gastrointestinal: Yes Diverticulosis Musculoskeletal: No Endocrine: No HEENT: No Loss of Vision: Denies Hearing Impairment: Denies Cancer: No Psychosocial: No Anxiety, Depression Integumentary: No Blood Disorders: No Adverse Reaction/Blood Tranf: No Family Medical History Arthritis 19 MOTHER GRANDMA-MATERAL Colon cancer GRANDP-MATERANL Completed stroke 19 FATHER Congenital disease 19 FATHER Congenital heart disease 19 FATHER Diabetes mellitus 19 FATHER GRANDMA-MATERAL Hypercholesterolemia Myocardial infarction 19 FATHER GRANDP-MATERANL Heart Disease, Cancer, Diabetes Physical Exam Vital Signs Vital Signs - First Documented 09/15/19 19:45 Temp 36.6 Pulse 95 Resp 20 B/P (MAP) 145/71 (95) Pulse Ox 99 O2 Delivery Room Air Capillary Refill : Height, Weight, BMI Height: 5'5.00" Weight: 196lbs. 0.0oz. 88.027076fy; 33.7 BMI Method:Stated General Appearance: WD/WN, no apparent distress Cardiovascular: regular rate, rhythm Respiratory: no respiratory distress Feet: left foot bone tenderness, left foot limited range of motion, left foot pain, left foot soft tissue tenderness, left foot swelling Progress/Results/Core Measures Results/Orders My Orders Orders - CHEN BLACKBURN MD Foot 3 View Left (09/15/19 19:55) Vital Signs/I&O 09/15/19 09/15/19 19:45 20:22 Temp 36.6 36.6 Pulse 95 95 Resp 20 20 B/P (MAP) 145/71 (95) 145/71 (95) Pulse Ox 99 99 O2 Delivery Room Air Departure Impression Primary Impression: Contusion of foot Disposition: 01 HOME, SELF-CARE Condition: Stable Departure-Patient Inst. Decision time for Depature: 20:14 Referrals: TYRA WALKER MD (PCP/Family) Primary Care Physician Patient Instructions: Contusion (DC) Add. Discharge Instructions: Keep foot elevated as much as possible. Ibuprofen for pain. Weightbearing as tolerated CHEN BLACKBURN MD Sep 15, 2019 19:57 POS
[2019-09-15 20:22] VITALS: BP 145/71
--- NOTE | 2019-09-15 20:26 | Diagnostic Imaging Report ---
CLINICAL HISTORY: Left foot was stepped on by a horse. COMPARISON: None. TECHNIQUE: 3 views of the left foot. FINDINGS: No acute displaced fractures are seen in the left foot. A small amount of soft tissue edema is seen on the dorsal aspect of the left foot. Alignment is anatomic. IMPRESSION: No acute displaced fracture of the left foot. Dictated by: Dictated on workstation # [id number]
== END 2019-09-15 20:22 | disposition home or self-care (01) ==
LOC: EDUNIT# 19:40 → ER FS 19:41
DX: S90.32XA Contusion of left foot, initial encounter (principal); G43.909 Migraine, unspecified, not intractable, without status migrainosus; F41.9 Anxiety disorder, unspecified; F32.9 Major depressive disorder, single episode, unspecified; Z80.0 Family history of malignant neoplasm of digestive organs; Z82.49 Family history of ischemic heart disease and other diseases of the circulatory system; W55.12XA Struck by horse, initial encounter
CPT/HCPCS: 73630

== ENCOUNTER 2019-11-04 16:00 | Emergency (ER) | payer SELFPAY ==
[~2019-11-04] VITALS: Ht 160 cm; Wt 86.4 kg
--- NOTE | 2019-11-04 16:21 | ED Respiratory ---
General Stated Complaint: CONGESTION,SOB Source: patient, family Exam Limitations: no limitations History of Present Illness Date Seen by Provider: Nov 04, 2019 Time Seen by Provider: 16:19 Initial Comments This 34-year-old white female presents with congestion and shortness of breath been present for the last several days. Patient initially had more in the way of sinus congestion and discomfort but is now having persistent cough which is only mildly productive. The patient denies associated nausea vomiting or diarrhea. Patient has had no severe headache stiff neck or photophobia. Patient has been using grph-[id number] medications without relief. Allergies and Home Medications Allergies Coded Allergies: No Known Drug Allergies (Verified , 02/20/19) Home Medications Azithromycin 250 Mg Tablet, 250 MG PO DAILY Prescribed by: EMILIE STOREY on 07/03/192219 Cephalexin 500 Mg Capsule, 500 MG PO TID Prescribed by: AMALIA ROBERSON on [birth year]1941 Cyclobenzaprine HCl 10 Mg Tablet, 10 MG PO Q8H PRN for SPASMS Prescribed by: IVAN KAHN on 02/20/191758 Hydrocodone Bit/Acetaminophen 1 Tab Tab, 1 EACH PO Q8H PRN for PAIN-MODERATE Prescribed by: DONY HERNANDEZ on 06/05/19 1531 Hydrocodone/Acetaminophen 1 Each Tablet, 1 TAB PO Q4-6HR Prescribed by: AMALIA ROBERSON on [birth year]02/1942 Naproxen 500 Mg Tablet, 500 MG PO BID Prescribed by: IVAN KAHN on 02/20/191758 Sulfamethoxazole/Trimethoprim 1 Each Tablet, 1 EACH PO BID Prescribed by: AMALIA ROBERSON on [birth year]02/1941 Patient Home Medication List Home Medication List Reviewed: Yes Review of Systems Review of Systems Constitutional: fever, malaise, weakness EENTM: nose congestion; No blurred vision Respiratory: see HPI, cough, short of breath Cardiovascular: No chest pain, No palpitations Gastrointestinal: No abdominal pain, No diarrhea, No nausea, No vomiting 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: no symptoms reported Musculoskeletal: no symptoms reported Skin: no symptoms reported Psychiatric/Neurological: No Symptoms Reported Hematologic/Lymphatic: No Symptoms Reported Immunological/Allergic: no symptoms reported Past Vkdfsfu-Wnihou-Pkgyxm Hx Past Med/Social Hx: Reviewed Nursing Past Med/Soc Hx Patient Social History Drug of Choice: Marijuana Type Used: Cigarettes 2nd Hand Smoke Exposure: No Recent Hopitalizations: No Immunizations Up To Date Tetanus Booster (TDap): Less than 5yrs PED Vaccines UTD: Yes Seasonal Allergies Seasonal Allergies: No Past Medical History Surgeries: Yes Abdominal, Section, Gallbladder Respiratory: No Currently Using CPAP: No Currently Using BIPAP: No Cardiac: No Neurological: Yes Headaches /Migraines 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 Disorders: No 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 [employer] History: IUD 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: No Gastrointestinal: Yes Diverticulosis Musculoskeletal: No Endocrine: No HEENT: No Loss of Vision: Denies Hearing Impairment: Denies Cancer: No Psychosocial: No Anxiety, Depression Integumentary: No Blood Disorders: No Adverse Reaction/Blood Tranf: No Family Medical History Arthritis 19 MOTHER GRANDMA-MATERAL Colon cancer GRANDP-MATERANL Completed stroke 19 FATHER Congenital disease 19 FATHER Congenital heart disease 19 FATHER Diabetes mellitus 19 FATHER GRANDMA-MATERAL Hypercholesterolemia Myocardial infarction 19 FATHER GRANDP-MATERANL Heart Disease, Cancer, Diabetes Physical Exam Capillary Refill : Height: 5'5.00" Weight: 196lbs. 0.0oz. 88.227996mj; 34.00 BMI Method:Stated General Appearance: no apparent distress Eyes: Bilateral Eye Normal Inspection HEENT: normal ENT inspection Neck: non-tender, full range of motion, supple Respiratory: no respiratory distress, decreased breath sounds Cardiovascular: regular rate, rhythm, no murmur Gastrointestinal: normal bowel sounds, non tender Neurologic/Psychiatric: no motor/sensory deficits, alert, normal mood/affect Skin: normal color, warm/dry Progress/Results/Core Measures Suspected Sepsis SIRS Temperature: Pulse: Respiratory Rate: Laboratory Tests 11/04/19 16:44: White Blood Count 8.4 Blood Pressure / Mean: Laboratory Tests 11/04/19 16:44: Platelet Count 359 Results/Orders Lab Results Laboratory Tests Test 11/04/19 16:44 Range/Units White Blood Count 8.4 4.3-11.0 10^3/uL Red Blood Count 4.80 4.35-5.85 10^6/uL Hemoglobin 14.7 11.5-16.0 G/DL Hematocrit 43 35-52 % Mean Corpuscular Volume 90 80-99 FL Mean Corpuscular Hemoglobin 31 25-34 PG Mean Corpuscular Hemoglobin Concent 34 32-36 G/DL Red Cell Distribution Width 13.2 10.0-14.5 % Platelet Count 359 130-400 10^3/uL Mean Platelet Volume 10.5 H 7.4-10.4 FL Neutrophils (%) (Auto) 50 42-75 % Lymphocytes (%) (Auto) 34 12-44 % Monocytes (%) (Auto) 9 0-12 % Eosinophils (%) (Auto) 6 0-10 % Basophils (%) (Auto) 1 0-10 % Neutrophils # (Auto) 4.2 1.8-7.8 X 10^3 Lymphocytes # (Auto) 2.8 1.0-4.0 X 10^3 Monocytes # (Auto) 0.8 0.0-1.0 X 10^3 Eosinophils # (Auto) 0.5 H 0.0-0.3 10^3/uL Basophils # (Auto) 0.1 0.0-0.1 10^3/uL My Orders Orders - GANGA VELEZ MD Chest 1 View Ap/Pa Only (11/04/19 16:17) Cbc With Automated Diff (11/04/19 16:17) Albuterol Pre-Mix Nebs (Rt) (Proventil (11/04/19 21:00) Ibuprofen Tablet (Motrin Tablet) (11/04/19 16:30) Svn Small Volume Nebulizer (11/04/19 16:17) Albuterol Pre-Mix Nebs (Rt) (Proventil (11/04/19 16:31) Medications Given in ED Current Medications Medications Dose Ordered Sig/Marnie Route Start Time Stop Time Status Last Admin Dose Admin Ibuprofen 800 mg ONCE ONCE PO 11/04/19 16:30 11/04/19 16:31 DC 11/04/19 16:36 800 MG Vital Signs/I&O Capillary Refill : Progress Note : Time: 17:04 Progress Note Patient's chest x-ray films show evidence of an acute infiltrate. CBC was unremarkable. I counseled patient on the results of that are testing. We initiated a course of Zithromax for her upper respiratory infection. I asked to follow-up with her doctor on Wednesday. I asked her to return if she had any for problems or questions. Departure Impression Primary Impression: Upper respiratory infection Qualified Codes: J06.9 - Acute upper respiratory infection, unspecified Disposition: HOME, SELF-CARE Condition: Improved Departure-Patient Inst. Decision time for Depature: 17:06 Referrals: [facility],LOCAL PHYSICIAN (PCP) Primary Care Physician Patient Instructions: Acute Bronchitis, Adult (DC) Scripts Azithromycin (Zithromax) 250 Mg Tablet 250 MG PO UD, #6 TAB TAKE 2 TABLETS TODAY, THEN TAKE 1 TABLET DAILY FOR 4 MORE DAYS Prov: GANGA VELEZ MD 11/04/19 GANGA VELEZ MD Nov 04, 2019 16:21
[2019-11-04] MEDS ORDERED: IBUPROFEN 800 MG (MOTRIN) TAB PO ONE (16:30)
[2019-11-04] MEDS ORDERED: RT-ALBUTEROL SULF 2.5 MG/3 ML PRE-MIX VIAL ONE (16:31)
--- NOTE | 2019-11-04 16:44 | Diagnostic Imaging Report ---
INDICATION: Cough and congestion. TIME OF EXAM: 4:04 p.m. COMPARISON: Prior chest from 08/14/2018. FINDINGS: The heart size is normal. The pulmonary vascularity is unremarkable. The lungs are clear. No infiltrate, effusion or pneumothorax is detected. IMPRESSION: No acute cardiopulmonary process is detected. Dictated by: Dictated on workstation # [id number]
[2019-11-04 17:01] LABS: BASOPHILS % (AUTO) 1 % (0-10); EOSINOPHILS % (AUTO) 6 % (0-10); HEMATOCRIT 43 % (35-52); HEMOGLOBIN 14.7 G/DL (11.5-16.0); LYMPHOCYTES % (AUTO) 34 % (12-44); MEAN CORPUSCULAR HEMOGLOBIN 31 PG (25-34); MEAN CORPUSCULAR HGB CONC 34 G/DL (32-36); MEAN CORPUSCULAR VOLUME 90 FL (80-99); MEAN PLATELET VOLUME 10.5 FL (7.4-10.4); MONOCYTES % (AUTO) 9 % (0-12); NEUTROPHILS % (AUTO) 50 % (42-75); PLATELET COUNT 359 10^3/uL (130-400); RED CELL DISTRIBUTION WIDTH 13.2 % (10.0-14.5); WHITE BLOOD COUNT 8.4 10^3/uL (4.3-11.0)
[2019-11-04 17:02] LABS: BASOPHILS # (AUTO) 0.1 10^3/uL (0.0-0.1); EOSINOPHILS # (AUTO) 0.5 10^3/uL (0.0-0.3); LYMPHOCYTES # (AUTO) 2.8 X 10^3 (1.0-4.0); MONOCYTES # (AUTO) 0.8 X 10^3 (0.0-1.0); NEUTROPHILS # (AUTO) 4.2 X 10^3 (1.8-7.8)
[2019-11-04] MEDS ORDERED: AZIT250T PO (17:07)
[2019-11-04 17:15] VITALS: BP 137/97
[2019-11-04] MEDS ORDERED: RT-ALBUTEROL SULF 2.5 MG/3 ML PRE-MIX VIAL INH SCH (21:00)
== END 2019-11-04 17:20 | disposition home or self-care (01) ==
LOC: EDUNIT# 16:00 → ER FS 16:02
DX: J06.9 Acute upper respiratory infection, unspecified (principal); G43.909 Migraine, unspecified, not intractable, without status migrainosus; F41.9 Anxiety disorder, unspecified; F32.9 Major depressive disorder, single episode, unspecified; Z82.49 Family history of ischemic heart disease and other diseases of the circulatory system; Z80.0 Family history of malignant neoplasm of digestive organs
CPT/HCPCS: 36415; 71045; 85025; 94640

== ENCOUNTER 2019-12-20 06:55 | Emergency (ER) | payer SELFPAY ==
[~2019-12-20] VITALS: Ht 160 cm; Wt 92.4 kg
[~2019-12-20 06:55] MED LIST changes: +AZIT250T PO; +OMEP-280 PO; -OMEP20CA13 PO
[2019-12-20] MEDS ORDERED: KETOROLAC 30 MG/ML VIAL IVP STA (07:07)
[2019-12-20] MEDS ORDERED: ASPIRIN 81 MG CHEW (CHILDREN'S ASA) PO ONE (07:15)
--- NOTE | 2019-12-20 07:20 | ED Chest Pain ---
General Chief Complaint: Chest Pain Stated Complaint: CHEST PAIN, SOB Source: patient History of Present Illness Date Seen by Provider: Dec 20, 2019 Time Seen by Provider: 06:57 Initial Comments 34 -year-old female presenting with complaints of left-sided chest pain that started 45 minutes prior to arrival. She states that it has been constant and sharp in nature. Nothing makes the pain worse or better. She denies fever or chills. She states that she has not been feeling bad and does not feel bad now but just has the pain in her chest. She does have some shortness of breath with the pain. The pain is not radiating anywhere. She has no nausea or vomiting with it. She is not diaphoretic with the pain. She denies having pain like this before. She did not try taking anything for the pain prior to arrival. Allergies and Home Medications Allergies Coded Allergies: No Known Drug Allergies (Verified , 02/20/19) Home Medications Azithromycin 250 Mg Tablet, 250 MG PO DAILY Prescribed by: EMILIE STOREY on 07/03/190 Azithromycin 250 Mg Tablet, 250 MG PO UD TAKE 2 TABLETS TODAY, THEN TAKE 1 TABLET DAILY FOR 4 MORE DAYS Prescribed by: GANGA VELEZ MD on 11/04/19 1707 Cephalexin 500 Mg Capsule, 500 MG PO TID Prescribed by: AMALIA ROBERSON on 06/02/1942 Cyclobenzaprine HCl 10 Mg Tablet, 10 MG PO Q8H PRN for SPASMS Prescribed by: IVAN KAHN on 02/20/19 175 Hydrocodone Bit/Acetaminophen 1 Tab Tab, 1 EACH PO Q8H PRN for PAIN-MODERATE Prescribed by: DONY HERNANDEZ on 06/05/19 1531 Hydrocodone/Acetaminophen 1 Each Tablet, 1 TAB PO Q4-6HR Prescribed by: AMALIA ROBERSON on 06[birth year]02/1941 Naproxen 500 Mg Tablet, 500 MG PO BID Prescribed by: IVAN KAHN on 02/20/191758 Sulfamethoxazole/Trimethoprim 1 Each Tablet, 1 EACH PO BID Prescribed by: AMALIA ROBERSON on 06/02/1941 Patient Home Medication List Home Medication List Reviewed: Yes Review of Systems Review of Systems Constitutional: No chills, No fever, No malaise EENTM: No Symptoms Reported Respiratory: Denies Cough; Shortness of Air; Denies Stridor, Denies Wheezing Cardiovascular: See HPI Gastrointestinal: See HPI 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: No Symptoms Reported Musculoskeletal: no symptoms reported Skin: no symptoms reported Psychiatric/Neurological: No Symptoms Reported Endocrine: No Symptoms Reported Past Qdqybev-Mfszkm-Owohpk Hx Past Med/Social Hx: Reviewed Nursing Past Med/Soc Hx Patient Social History Drug of Choice: Marijuana Type Used: Cigarettes 2nd Hand Smoke Exposure: No Recent Foreign Travel: No Contact w/Someone Who Travel: No Recent Hopitalizations: No Immunizations Up To Date Tetanus Booster (TDap): Less than 5yrs PED Vaccines UTD: Yes Seasonal Allergies Seasonal Allergies: No Past Medical History Surgeries: Yes Abdominal, Section, Gallbladder Respiratory: No Currently Using CPAP: No Currently Using BIPAP: No Cardiac: No Neurological: Yes Headaches /Migraines 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 Disorders: No 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 [employer] History: IUD 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: No Gastrointestinal: Yes Diverticulosis Musculoskeletal: No Endocrine: No HEENT: No Loss of Vision: Denies Hearing Impairment: Denies Cancer: No Psychosocial: No Anxiety, Depression Integumentary: No Blood Disorders: No Adverse Reaction/Blood Tranf: No Family Medical History Arthritis 19 MOTHER GRANDMA-MATERAL Colon cancer GRANDP-MATERANL Completed stroke 19 FATHER Congenital disease 19 FATHER Congenital heart disease 19 FATHER Diabetes mellitus 19 FATHER GRANDMA-MATERAL Hypercholesterolemia Myocardial infarction 19 FATHER GRANDP-MATERANL Heart Disease, Cancer, Diabetes Physical Exam Vital Signs Vital Signs - First Documented 12/20/19 06:58 Temp 36.6 Pulse 84 Resp 18 B/P (MAP) 141/89 (106) Pulse Ox 100 O2 Delivery Room Air Capillary Refill : Height, Weight, BMI Height: 5'5.00" Weight: 196lbs. 0.0oz. [id number]; 33.00 BMI Method:Stated General Appearance: No Apparent Distress, WD/WN HEENT: PERRL/EOMI, Normal ENT Inspection, Pharynx Normal Neck: Full Range of Motion, Normal Inspection, Non Tender, Supple Respiratory: Chest Non Tender, Lungs Clear, Normal Breath Sounds, No Accessory Muscle Use, No Respiratory Distress Cardiovascular: Regular Rate, Rhythm, No Edema, Normal Peripheral Pulses Gastrointestinal: Normal Bowel Sounds, No Pulsatile Mass, Non Tender, Soft Extremity: Normal Capillary Refill, Normal Inspection, No Pedal Edema Neurologic/Psychiatric: Alert, Oriented x3, No Motor/Sensory Deficits Skin: Normal Color, Warm/Dry Progress/Results/Core Measures Results/Orders Lab Results Laboratory Tests Test 12/20/19 07:07 12/20/19 07:10 Range/Units Prothrombin Time 12.8 12.2-14.7 SEC INR Comment 0.9 0.8-1.4 Activated Partial Thromboplast Time 28 24-35 SEC White Blood Count 11.5 H 4.3-11.0 10^3/uL Red Blood Count 4.62 4.35-5.85 10^6/uL Hemoglobin 13.9 11.5-16.0 G/DL Hematocrit 42 35-52 % Mean Corpuscular Volume 91 80-99 FL Mean Corpuscular Hemoglobin 30 25-34 PG Mean Corpuscular Hemoglobin Concent 33 32-36 G/DL Red Cell Distribution Width 13.4 10.0-14.5 % Platelet Count 373 130-400 10^3/uL Mean Platelet Volume 10.5 H 7.4-10.4 FL Neutrophils (%) (Auto) 67 42-75 % Lymphocytes (%) (Auto) 22 12-44 % Monocytes (%) (Auto) 6 0-12 % Eosinophils (%) (Auto) 3 0-10 % Basophils (%) (Auto) 1 0-10 % Neutrophils # (Auto) 7.8 1.8-7.8 X 10^3 Lymphocytes # (Auto) 2.5 1.0-4.0 X 10^3 Monocytes # (Auto) 0.7 0.0-1.0 X 10^3 Eosinophils # (Auto) 0.4 H 0.0-0.3 10^3/uL Basophils # (Auto) 0.1 0.0-0.1 10^3/uL Sodium Level 135 135-145 MMOL/L Potassium Level 4.2 3.6-5.0 MMOL/L Chloride Level 101 98-107 MMOL/L Carbon Dioxide Level 24 21-32 MMOL/L Anion Gap 10 5-14 MMOL/L Blood Urea Nitrogen 9 7-18 MG/DL Creatinine 0.60 0.60-1.30 MG/DL Estimat Glomerular Filtration Rate > 60 BUN/Creatinine Ratio 15 Glucose Level 90 70-105 MG/DL Calcium Level 8.8 8.5-10.1 MG/DL Corrected Calcium 8.7 8.5-10.1 MG/DL Magnesium Level 2.1 1.6-2.4 MG/DL Total Bilirubin 0.3 0.1-1.0 MG/DL Aspartate Amino Transf (AST/SGOT) 14 5-34 U/L Alanine Aminotransferase (ALT/SGPT) 18 0-55 U/L Alkaline Phosphatase 75 40-136 U/L Troponin I < 0.30 <0.30 NG/ML Pro-B-Type Natriuretic Peptide 40.3 <75.0 PG/ML Total Protein 7.3 6.4-8.2 GM/DL Albumin 4.1 3.2-4.5 GM/DL Lipase 23 8-78 U/L My Orders Orders - EMILIE STOREY MD Cbc With Automated Diff (12/20/19 07:07) Magnesium (12/20/19 07:07) Ekg Tracing (12/20/19 07:07) Comprehensive Metabolic Panel (12/20/19 07:07) Protime With Inr (12/20/19 07:07) Partial Thromboplastin Time (12/20/19 07:07) O2 (12/20/19 07:07) Monitor-Rhythm Ecg Trace Only (12/20/19 07:07) Aspirin Chewable Tablet (Baby Aspirin Ch (12/20/19 07:15) Ed Iv/Invasive Line Start (12/20/19 07:07) Lipase (12/20/19 07:07) Troponin I Fs (12/20/19 07:07) Probnp Fs (12/20/19 07:07) Chest Pa/Lat (2 View) (12/20/19 07:07) Ketorolac Injection (Toradol Injection) (12/20/19 07:07) Orphenadrine Injection (Norflex Injectio (12/20/19 08:51) Medications Given in ED Current Medications Medications Dose Ordered Sig/Marnie Route Start Time Stop Time Status Last Admin Dose Admin Aspirin 324 mg ONCE ONCE PO 12/20/19 07:15 12/20/19 07:16 DC 12/20/19 07:34 324 MG Vital Signs/I&O 12/20/19 12/20/19 12/20/19 06:58 06:58 09:09 Temp 36.6 36.6 Pulse 84 84 Resp 18 18 B/P (MAP) 141/89 (106) 141/89 (106) Pulse Ox 100 100 O2 Delivery Room Air Room Air Room Air Progress Progress Note #1: Progress Note check labs and ECG with CXR. Try aspirin 324 mg po with Toradol for pain. No acute ST elevation on her ECG. Progress Note #2: Time: 08:33 Progress Note Labs do not show any acute significant abnormality and CXR is clear as well. Her symptoms are improved with treatment in the ED. 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 will try a dose of norflex for muscle relaxer here and she states she has muscle relaxer to take at home. Will do work note stating to limit lifting at work as well. Initial ECG Impression Date: Dec 20, 2019 Initial ECG Impression Time: 07:01 Initial ECG Rate: 88 Initial ECG Rhythm: Normal Sinus Initial ECG Comparisson: No Previous ECG Available Comment Normal sinus rhythm with a heart rate of 80 bpm. Short LA interval of [address] elevation. QT interval 347 ms and a QTc interval 420 ms. There is no prior tracing immediately available for comparison. Diagnostic Imaging Diagonstic Imaging: Xray Plain Films/CT/US/NM/MRI: chest Comments NAME: MARCUS PADILLA [facility] REC#: [id number] PT STATUS: REG ER : 1985 PHYSICIAN: EMILIE STOREY MD ADMIT DATE: 12/20/19/ER FS Draft Date of Exam:12/20/19 CHEST PA/LAT (2 VIEW) INDICATION: Chest pain. EXAMINATION: PA and lateral views of the chest. FINDINGS: The heart size and vascularity are normal. Lungs are clear. There is no effusion. There is no acute bony abnormality. IMPRESSION: No acute abnormality is seen. There is no change from 11/04/2019. Dictated on workstation # [id number] Dict: [birth year]28 Trans: 12/20/19 0730 [id number] Interpreted by: AMALIA CAMPOS MD Electronically signed by: Departure Impression Primary Impression: Chest wall pain Additional Impression: Non-cardiac chest pain Disposition: 01 HOME, SELF-CARE Condition: Stable Departure-Patient Inst. Decision time for Depature: 08:52 Referrals: NO,LOCAL PHYSICIAN (PCP) Primary Care Physician ERIC CALDERON MD Patient Instructions: Chest Pain (DC), Chest Pain That Is Not Caused by the Heart (DC) Add. Discharge Instructions: Try alternating ice and heat to your chest wall to help with pain. Follow up with clinic for continued symptoms Try muscle relaxer and anti-inflammatory at home to help with symptoms All discharge instructions reviewed with patient and/or family. Voiced understanding. Work/School Note: Work Release Form Date Seen in the Emergency Department: Dec 20, 2019 Return to Work: Dec 21, 2019 Other Restrictions Listed Below: May return 2019. No lifting more than 20 pounds until 2019 EMILIE STOREY MD Dec 20, 2019 07:20
--- NOTE | 2019-12-20 07:30 | Diagnostic Imaging Report ---
INDICATION: Chest pain. EXAMINATION: PA and lateral views of the chest. FINDINGS: The heart size and vascularity are normal. Lungs are clear. There is no effusion. There is no acute bony abnormality. IMPRESSION: No acute abnormality is seen. There is no change from 11/04/2019. Dictated by: Dictated on workstation # [id number]
[2019-12-20 08:03] LABS: INR 0.9 (0.8-1.4); PROTHROMBIN TIME PATIENT 12.8 SEC (12.2-14.7)
[2019-12-20 08:04] LABS: HEMATOCRIT 42 % (35-52); HEMOGLOBIN 13.9 G/DL (11.5-16.0); LYMPHOCYTES % (AUTO) 22 % (12-44); MEAN CORPUSCULAR HEMOGLOBIN 30 PG (25-34); MEAN CORPUSCULAR HGB CONC 33 G/DL (32-36); MEAN CORPUSCULAR VOLUME 91 FL (80-99); MEAN PLATELET VOLUME 10.5 FL (7.4-10.4); NEUTROPHILS % (AUTO) 67 % (42-75); PLATELET COUNT 373 10^3/uL (130-400); RED CELL DISTRIBUTION WIDTH 13.4 % (10.0-14.5); WHITE BLOOD COUNT 11.5 10^3/uL (4.3-11.0)
[2019-12-20 08:05] LABS: BASOPHILS # (AUTO) 0.1 10^3/uL (0.0-0.1); BASOPHILS % (AUTO) 1 % (0-10); EOSINOPHILS # (AUTO) 0.4 10^3/uL (0.0-0.3); EOSINOPHILS % (AUTO) 3 % (0-10); LYMPHOCYTES # (AUTO) 2.5 X 10^3 (1.0-4.0); MONOCYTES # (AUTO) 0.7 X 10^3 (0.0-1.0); MONOCYTES % (AUTO) 6 % (0-12); NEUTROPHILS # (AUTO) 7.8 X 10^3 (1.8-7.8)
[2019-12-20 08:10] LABS: ALANINE AMINOTRANSFERASE 18 U/L (0-55); ALKALINE PHOSPHATASE 75 U/L (40-136); BILIRUBIN,TOTAL 0.3 MG/DL (0.1-1.0); BUN/CREATININE RATIO 15; CALCIUM 8.8 MG/DL (8.5-10.1); CARBON DIOXIDE 24 MMOL/L (21-32); CHLORIDE 101 MMOL/L (98-107); GFR ESTIMATED > 60; GLUCOSE 90 MG/DL (70-105); MAGNESIUM 2.1 MG/DL (1.6-2.4); POTASSIUM 4.2 MMOL/L (3.6-5.0); SODIUM 135 MMOL/L (135-145); TOTAL PROTEIN 7.3 GM/DL (6.4-8.2)
[2019-12-20 08:11] LABS: ALBUMIN 4.1 GM/DL (3.2-4.5); LIPASE 23 U/L (8-78)
[2019-12-20] MEDS ORDERED: ORPHENADRINE 60 MG/2 ML (NORFLEX) AMP IV STA (08:51)
[2019-12-20 09:09] VITALS: BP 141/89
== END 2019-12-20 09:09 | disposition home or self-care (01) ==
LOC: EDUNIT# 06:55 → ER FS 06:57
DX: R07.89 Other chest pain (principal); Z80.0 Family history of malignant neoplasm of digestive organs; Z82.49 Family history of ischemic heart disease and other diseases of the circulatory system
CPT/HCPCS: 36415; 71046; 80053; 83690; 83735; 83880; 84484; 85025; 85610; 85730; 93005; 93041

== ENCOUNTER 2020-01-29 12:13 | Emergency (ER) | payer SELFPAY ==
[~2020-01-29] VITALS: Ht 160 cm; Wt 90.0 kg
[~2020-01-29 12:13] MED LIST changes: -OMEP-280 PO; +OMEP20CA18 PO; +ONDA-105 PO; -ONDA4TAB10 PO
--- OUTSIDE RECORDS SUMMARY | 2020-01-29 12:30 | XMS REPORT | Continuity of Care Document ---
Author Organization Unknown Address Unknown Phone Unavailable Allergies Active Description Code Type Severity Reaction Onset Reported/Identified Relationship to Patient Clinical Status Yes No Known Drug Allergies [id number] Drug Allergy Unknown N/A 02/20/2019 Medications There is no data. Problems Date Dx Coded Attending Type Code Diagnosis Diagnosed By 02/08/2016 YOON MAHER DO Ot E87.6 HYPOKALEMIA 02/08/2016 YOON MAHER DO Ot F17.21 0 NICOTINE DEPENDENCE, CIGARETTES, UNCOMPL 02/08/2016 GUNNAR MOREAU YOON Ot R10.11 RIGHT UPPER QUADRANT PAIN 02/08/2016 GUNNAR MOREAU YOON Ot R11.2 NAUSEA WITH VOMITING, UNSPECIFIED 02/08/2016 TRAE MAHER DOI Ot E87.6 02/08/2016 GUNNAR MOREAU YOON Ot F17.21 0 02/08/2016 GUNNAR MOREAU YOON Ot R10.11 02/08/2016 GUNNAR MOREAU YOON Ot R11.2 02/09/2016 Ot F12.10 CAN NABIS ABUSE, UNCOMPLICATED 02/09/2016 Ot F17.210 NI COTINE DEPENDENCE, CIGARETTES, UNCOMPL 02/09/2016 Ot R10.84 GEN ERALIZED ABDOMINAL PAIN 02/09/2016 Ot R11.2 NAUS EA WITH VOMITING, UNSPECIFIED 02/11/2016 Ot F12.10 02/11/2016 Ot F17.210 02/11/2016 Ot R10.84 02/11/2016 Ot R11.2 02/11/2016 CAMRYN CORONA MD Ot Z01.81 8 ENCOUNTER FOR OTHER PREPROCEDURAL EXAMIN 02/12/2016 CAMRYN [...] ANXIETY DISORDER, UNSPECIFIED 10/30/2017 LUIS ANGEL CAROL K Ot N93.8 OTHER SPECIFIED ABNORMAL [...] CIGARETTES, UNCOMPL 12/18/2018 SHANELL HANLEY APRN Ot F32 .9 MAJOR DEPRESSIVE DISORDER, SINGLE EPISOD 12/18/2018 SHANELL HANLEY APRN Ot F41 .9 ANXIETY DISORDER, UNSPECIFIED 12/18/2018 SHANELL HANLEY APRN Ot K92 .0 HEMATEMESIS 12/18/2018 SHANELL HANLEY APRN Ot R10.13 EPIGASTRIC PAIN 12/18/2018 SHANELL HANLEY APRN Ot Z80 .0 FAMILY HISTORY OF MALIGNANT NEOPLASM OF 12/18/2018 SHANELL HANLEY APRN Ot Z82.49 FAMILY HX OF ISCHEM HEART DIS AND OTH DI 12/18/2018 SHANELL HANLEY APRN Ot Z87.19 PERSONAL HISTORY OF OTHER DISEASES OF TH 12/18/2018 SHANELL HANLEY APRN Ot Z97 .5 PRESENCE OF (INTRAUTERINE) CONTRACEPTIVE 12/18/2018 SHANELL HANLEY APRN Ot Z98.890 OTHER SPECIFIED POSTPROCEDURAL STATES 12/20/2018 SHANELL HANLEY APRN Ot F17.210 NICOTINE DEPENDENCE, CIGARETTES, UNCOMPL 12/20/2018 SHANELL HANLEY APRN Ot F32 .9 MAJOR DEPRESSIVE DISORDER, SINGLE EPISOD 12/20/2018 SHANELL HANLEY APRN Ot F41 .9 ANXIETY DISORDER, UNSPECIFIED 12/20/2018 SHANELL HANLEY APRN Ot K92 .0 HEMATEMESIS 12/20/2018 SHANELL HANLEY APRN Ot R10.13 EPIGASTRIC PAIN 12/20/2018 SHANELL HANLEY APRN Ot Z80 .0 FAMILY HISTORY OF MALIGNANT NEOPLASM OF 12/20/2018 SHANELL HANLEY APRN Ot Z82.49 FAMILY HX OF ISCHEM HEART DIS AND OTH DI 12/20/2018 SHANELL HANLEY APRN Ot Z87.19 PERSONAL HISTORY OF OTHER DISEASES OF TH 12/20/2018 SHANELL HANLEY APRN Ot Z97 .5 PRESENCE OF (INTRAUTERINE) CONTRACEPTIVE 12/20/2018 SHANELL HANLEY APRN Ot Z98.890 OTHER SPECIFIED POSTPROCEDURAL STATES 12/24/2018 SHANELL HANLEY APRN Ot F17.210 NICOTINE DEPENDENCE, CIGARETTES, UNCOMPL 12/24/2018 SHANELL HANLEY APRN Ot F32 .9 MAJOR DEPRESSIVE DISORDER, SINGLE EPISOD 12/24/2018 SHANELL HANLEY APRN Ot F41 .9 ANXIETY DISORDER, UNSPECIFIED 12/24/2018 SHANELL HANLEY APRN Ot K92 .0 HEMATEMESIS 12/24/2018 SHANELL HANLEY APRN Ot R10.13 EPIGASTRIC PAIN 12/24/2018 SHANELL HANLEY APRN Ot Z80 .0 FAMILY HISTORY OF MALIGNANT NEOPLASM OF 12/24/2018 SHANELL HANLEY APRN Ot Z82.49 FAMILY HX OF ISCHEM HEART DIS AND OTH DI 12/24/2018 SHANELL HANLEY APRN Ot Z87.19 PERSONAL HISTORY OF OTHER DISEASES OF TH 12/24/2018 SHANELL HANLEY APRN Ot Z97 .5 PRESENCE OF (INTRAUTERINE) CONTRACEPTIVE 12/24/2018 SHANELL HANLEY APRN Ot Z98.890 OTHER SPECIFIED POSTPROCEDURAL STATES 01/17/2019 NICHOLAS CRISTOBAL DO Ot F17.21 0 NICOTINE DEPENDENCE, CIGARETTES, UNCOMPL 01/17/2019 NICHOLAS CRISTOBAL [...] BACK PAIN 02/20/2019 IVAN KAHN MD Ot S39.012 A STRAIN OF MUSCLE, FASCIA AND TENDON OF L 02/20/2019 IVAN KAHN MD Ot X58.XXX A EXPOSURE TO OTHER SPECIFIED FACTORS, INI 02/20/2019 [...] BACK PAIN 02/23/2019 IVAN KAHN MD Ot S39.012 A STRAIN OF MUSCLE, FASCIA AND TENDON OF L 02/23/2019 IVAN KAHN MD Ot X58.XXX A EXPOSURE TO OTHER SPECIFIED FACTORS, INI 02/23/2019 [...] Ot Z98.890 OTHER SPECIFIED POSTPROCEDURAL STATES 02/27/2019 FEMI MD, IVAN D Ot F12.10 CANNABIS ABUSE, UNCOMPLICATED 02/27/2019 IVAN KAHN MD Ot F32.9 MAJOR DEPRESSIVE DISORDER, SINGLE EPISOD 02/27/2019 IVAN KAHN MD, Ot F41.9 ANXIETY DISORDER, UNSPECIFIED 02/27/2019 IVAN KAHN MD Ot M54.5 LOW BACK PAIN 02/27/2019 IVAN KAHN MD Ot S39.012 A STRAIN OF MUSCLE, FASCIA AND TENDON OF L 02/27/2019 IVAN KAHN MD Ot X58.XXX A EXPOSURE TO OTHER SPECIFIED FACTORS, INI 02/27/2019 IVAN KAHN MD, Ot Z80.0 FAMILY HISTORY OF MALIGNANT NEOPLASM OF 02/27/2019 IVAN KAHN MD, Ot Z82.49 FAMILY HX OF ISCHEM HEART DIS AND OTH DI 02/27/2019 IVAN KAHN MD Ot Z87.19 PERSONAL HISTORY [...] DO Ot Z98.890 OTHER SPECIFIED POSTPROCEDURAL STATES 04/05/2019 JACOB SANZ MD Ot F12. 10 CANNABIS ABUSE, UNCOMPLICATED 04/05/2019 JACOB SANZ MD Ot F17.210 NICOTINE DEPENDENCE, CIGARETTES, UNCOMPL 04/05/2019 JACOB SANZ MD Ot F32. 9 MAJOR DEPRESSIVE DISORDER, SINGLE EPISOD 04/05/2019 JACOB SANZ MD Ot F41. 9 ANXIETY DISORDER, UNSPECIFIED 04/05/2019 JACOB SANZ MD Ot G43.909 MIGRAINE, UNSP, NOT INTRACTABLE, WITHOUT 04/05/2019 JACOB SANZ MD Ot Z80. 0 FAMILY HISTORY OF MALIGNANT NEOPLASM OF 04/05/2019 JACOB SANZ MD Ot Z82. 49 FAMILY HX OF ISCHEM HEART DIS AND OTH DI 04/05/2019 JACOB SANZ MD Ot Z87. 19 PERSONAL HISTORY OF OTHER DISEASES OF TH 04/05/2019 JACOB SANZ MD Ot Z97. 5 PRESENCE OF (INTRAUTERINE) CONTRACEPTIVE 04/05/2019 JACOB SANZ MD Ot Z98.890 OTHER SPECIFIED POSTPROCEDURAL STATES 04/08/2019 JACOB SANZ MD Ot F12. 10 CANNABIS ABUSE, UNCOMPLICATED 04/08/2019 JACOB SANZ MD Ot F17.210 NICOTINE DEPENDENCE, CIGARETTES, UNCOMPL 04/08/2019 JACOB SANZ MD Ot F32. 9 MAJOR DEPRESSIVE DISORDER, SINGLE EPISOD 04/08/2019 JACOB SANZ MD Ot F41. 9 ANXIETY DISORDER, UNSPECIFIED 04/08/2019 JACOB SANZ MD Ot G43.909 MIGRAINE, UNSP, NOT INTRACTABLE, WITHOUT 04/08/2019 JACOB SANZ MD Ot Z80. 0 FAMILY HISTORY OF MALIGNANT NEOPLASM OF 04/08/2019 JACOB SANZ MD Ot Z82. 49 FAMILY HX OF ISCHEM HEART DIS AND OTH DI 04/08/2019 JACOB SANZ MD Ot Z87. 19 PERSONAL HISTORY OF OTHER DISEASES OF TH 04/08/2019 JACOB SANZ MD Ot Z97. 5 PRESENCE OF (INTRAUTERINE) CONTRACEPTIVE 04/08/2019 JACOB SANZ MD Ot Z98.890 OTHER SPECIFIED POSTPROCEDURAL STATES 06/07/2019 DA HOLLAND DO Ot F32. 9 MAJOR DEPRESSIVE DISORDER, SINGLE EPISOD 06/07/2019 DA HOLLAND DO Ot F41. 9 ANXIETY DISORDER, UNSPECIFIED 06/07/2019 DA HOLLAND DO Ot G43.909 MIGRAINE, UNSP, NOT INTRACTABLE, WITHOUT 06/07/2019 DA HOLLAND DO Ot L03.314 CELLULITIS OF GROIN 06/07/2019 DA HOLLAND DO Ot L73. 9 FOLLICULAR DISORDER, UNSPECIFIED 06/07/2019 AMALIA DA Ot N89. 8 OTHER SPECIFIED NONINFLAMMATORY DISORDER 06/07/2019 AMALIA DO DA B Ot Z80. 0 FAMILY HISTORY OF MALIGNANT NEOPLASM OF 06/07/2019 AMALIA MOREAU DA B Ot Z87. 19 PERSONAL HISTORY OF OTHER DISEASES OF 06/07/2019 HERNANDEZ DO, DONY L Ot F32.9 MAJOR DEPRESSIVE DISORDER, SINGLE EPISOD 06/07/2019 HERNANDEZ DO, DONY L Ot F41.9 ANXIETY DISORDER, UNSPECIFIED 06/07/2019 HERNANDEZ DO, DONY L Ot G43.9 09 MIGRAINE, UNSP, NOT INTRACTABLE, WITHOUT 06/07/2019 HERNANDEZ DO, DONY L Ot N76.4 ABSCESS OF VULVA 06/07/2019 HERNANDEZ DO, DONY L Ot Z80.0 FAMILY HISTORY OF MALIGNANT NEOPLASM OF 06/07/2019 HERNANDEZ DO, DONY L Ot Z82.4 9 FAMILY HX OF ISCHEM HEART DIS AND OTH DI 06/07/2019 HERNANDEZ DO, DONY L Ot Z87.1 9 PERSONAL HISTORY OF OTHER DISEASES OF 07/07/2019 EMILIE STOREY MD Ot F17.2 10 NICOTINE DEPENDENCE, CIGARETTES, UNCOMPL 07/07/2019 EMILIE STOREY MD Ot F32.9 MAJOR DEPRESSIVE DISORDER, SINGLE EPISOD 07/07/2019 EMILIE STOREY MD Ot F41.9 ANXIETY DISORDER, UNSPECIFIED 07/07/2019 EMILIE STOREY MD Ot G43.9 09 MIGRAINE, UNSP, NOT INTRACTABLE, WITHOUT 07/07/2019 EMILIE STOREY MD Ot H65.9 1 UNSPECIFIED NONSUPPURATIVE OTITIS MEDIA, 07/07/2019 EMILIE STOREY MD Ot J06.9 ACUTE UPPER RESPIRATORY INFECTION, UNSPE 07/07/2019 EMILIE STOREY MD Ot R05 COUGH 07/07/2019 EMILIE STOREY MD Ot Z80.0 FAMILY HISTORY OF MALIGNANT NEOPLASM OF 07/07/2019 EMILIE STOREY MD Ot Z82.4 9 FAMILY HX OF ISCHEM HEART DIS AND OTH DI 07/07/2019 EMILIE STOREY MD Ot Z87.1 9 PERSONAL HISTORY OF OTHER DISEASES OF TH 07/09/2019 RALEIGH LAWRENCE, EMILIE Bailey Ot F17.2 10 NICOTINE DEPENDENCE, CIGARETTES, UNCOMPL 07/09/2019 EMILIE STOREY MD Ot F32.9 MAJOR DEPRESSIVE DISORDER, SINGLE EPISOD 07/09/2019 EMILIE STOREY MD Ot F41.9 ANXIETY DISORDER, UNSPECIFIED 07/09/2019 EMILIE STOREY MD Ot G43.9 09 MIGRAINE, UNSP, NOT INTRACTABLE, WITHOUT 07/09/2019 EMILIE STOREY MD Ot H65.9 1 UNSPECIFIED NONSUPPURATIVE OTITIS MEDIA, 07/09/2019 EMILIE STOREY MD Ot J06.9 ACUTE UPPER RESPIRATORY INFECTION, UNSPE 07/09/2019 EMILIE STOREY MD Ot R05 COUGH 07/09/2019 EMILIE STOREY MD Ot Z80.0 FAMILY HISTORY OF MALIGNANT NEOPLASM OF 07/09/2019 EMILIE STOREY MD Ot Z82.4 9 FAMILY HX OF ISCHEM HEART DIS AND OTH DI 07/09/2019 EMILIE STOREY MD Ot Z87.1 9 PERSONAL HISTORY OF OTHER DISEASES OF 09/15/2019 CHEN BLACKBURN MD Ot F32. 9 MAJOR DEPRESSIVE DISORDER, SINGLE EPISOD 09/15/2019 CHEN BLACKBURN MD Ot F41. 9 ANXIETY DISORDER, UNSPECIFIED 09/15/2019 CHEN BLACKBURN MD Ot G43.909 MIGRAINE, UNSP, NOT INTRACTABLE, WITHOUT 09/15/2019 CHEN BLACKBURN MD Ot M79.672 PAIN IN LEFT FOOT 09/15/2019 CHEN BLACKBURN MD A Ot S90.32XA CONTUSION OF LEFT FOOT, INITIAL ENCOUNTE 09/15/2019 CHEN BLACKBURN MD A Ot W55.12XA STRUCK BY HORSE, INITIAL ENCOUNTER 09/15/2019 CHEN BLACKBURN MD A Ot Z80. 0 FAMILY HISTORY OF MALIGNANT NEOPLASM OF 09/15/2019 CHEN BLACKBURN MD A Ot Z82. 49 FAMILY HX OF ISCHEM HEART DIS AND OTH DI 09/19/2019 CHEN BLACKBURN MD Ot F32. 9 MAJOR DEPRESSIVE DISORDER, SINGLE EPISOD 09/19/2019 CHEN BLACKBURN MD Ot F41. 9 ANXIETY DISORDER, UNSPECIFIED 09/19/2019 CHEN BLACKBURN MD A Ot G43.909 MIGRAINE, UNSP, NOT INTRACTABLE, WITHOUT 09/19/2019 ALEXEY LAWRENCE, CHEN Siegel Ot M79.672 PAIN IN LEFT FOOT 09/19/2019 ALEXEY LAWRENCE, CHEN Siegel Ot S90.32XA CONTUSION OF LEFT FOOT, INITIAL ENCOUNTE 09/19/2019 ALEXEY LAWRENCE, CHEN Siegel Ot W55.12XA STRUCK BY HORSE, INITIAL ENCOUNTER 09/19/2019 ALEXEY LAWRENCE, CHEN Siegel Ot Z80. 0 FAMILY HISTORY OF MALIGNANT NEOPLASM OF 09/19/2019 ALEXEY LAWRENCE, CHEN Siegel Ot Z82. 49 FAMILY HX OF ISCHEM HEART DIS AND OTH DI 11/09/2019 ROSIE LAWRENCE, GANGA Lee Ot F32. 9 MAJOR DEPRESSIVE DISORDER, SINGLE EPISOD 11/09/2019 ROSIE LAWRENCE, GANGA Lee Ot F41. 9 ANXIETY DISORDER, UNSPECIFIED 11/09/2019 ROSIE LAWRENCE, GANGA Lee Ot G43.909 MIGRAINE, UNSP, NOT INTRACTABLE, WITHOUT 11/09/2019 ROSIE MD, GANGA Lee Ot J06. 9 ACUTE UPPER RESPIRATORY INFECTION, UNSPE 11/09/2019 ROSIE LAWRENCE, GANGA Lee Ot R06. 02 SHORTNESS OF BREATH 11/09/2019 ROSIE LAWRENCE, GANGA Lee Ot Z80. 0 FAMILY HISTORY OF MALIGNANT NEOPLASM OF 11/09/2019 ROSIE LAWRENCE, GANGA Lee Ot Z82. 49 FAMILY HX OF ISCHEM HEART DIS AND OTH DI 11/10/2019 ROSIE LAWRENCE, GANGA Lee Ot F32. 9 MAJOR DEPRESSIVE DISORDER, SINGLE EPISOD 11/10/2019 ROSIE LAWRENCE, GANGA Lee Ot F41. 9 ANXIETY DISORDER, UNSPECIFIED 11/10/2019 ROSIE LAWRENCE, GANGA Lee Ot G43.909 MIGRAINE, UNSP, NOT INTRACTABLE, WITHOUT 11/10/2019 ROSIE MD, GANGA Lee Ot J06. 9 ACUTE UPPER RESPIRATORY INFECTION, UNSPE 11/10/2019 ROSIE LAWRENCE, GANGA Lee Ot R06. 02 SHORTNESS OF BREATH 11/10/2019 ROSIE LAWRENCE, GANGA Lee Ot Z80. 0 FAMILY HISTORY OF MALIGNANT NEOPLASM OF 11/10/2019 ROSIE LAWRENCE, GANGA Lee Ot Z82. 49 FAMILY HX OF ISCHEM HEART DIS AND OTH DI 12/20/2019 EMILIE STOREY MD Ot R07.8 9 OTHER CHEST PAIN 12/20/2019 EMILIE STOREY MD Ot Z80.0 FAMILY HISTORY OF MALIGNANT NEOPLASM OF 12/20/2019 EMILIE STOREY MD Ot Z82.4 9 FAMILY HX OF ISCHEM HEART DIS AND OTH DI 12/25/2019 EMILIE STOREY MD Ot R07.8 9 OTHER CHEST PAIN 12/25/2019 EMILIE STOREY MD Ot Z80.0 FAMILY HISTORY OF MALIGNANT NEOPLASM OF 12/25/2019 EMILIE STOREY MD Ot Z82.4 9 FAMILY HX OF ISCHEM HEART DIS AND OTH DI 12/29/2019 EMILIE STOREY MD Ot R07.8 9 OTHER CHEST PAIN 12/29/2019 EMILIE STOREY MD Ot Z80.0 FAMILY HISTORY OF MALIGNANT NEOPLASM OF 12/29/2019 EMILIE STOREY MD Ot Z82.4 9 FAMILY HX OF ISCHEM HEART DIS AND OTH DI Procedures There is no data. Results Test Result Range Complete blood count (CBC) with automate d white blood cell (WBC) differential - 10/24/17 21:30 Blood leukocytes automated count (number/volume) 13.4 10*3/uL 4.3-11.0 Blood erythrocytes automated count (number/volume) 4.52 10*6/uL 4.35-5.85 Venous blood hemoglobin measurement (mass/volume) 13.8 g/dL 11.5-16.0 Blood hematocrit (volume fraction) 41 % 35-52 Automated erythrocyte mean corpuscular volume 91 [ foz_us] 80-99 Automated erythrocyte mean corpuscular h emoglobin (mass per erythrocyte) 31 pg 25-34 Automated erythrocyte mean corpuscular h emoglobin concentration measurement (mass/volume) 33 g/dL 32-36 Automated erythrocyte distribution width ratio 14. 1 % 10.0- 14.5 Automated blood platelet count [...] 10*3 1.0-4.0 Blood monocytes automated count (number/volume) 1. 0 10*3 0.0-1.0 Automated eosinophil count 0.3 10*3/uL 0 .0-0.3 Automated blood basophil count (count/volume) 0.1 10*3/uL 0.0-0.1 PT panel in platelet poor plasma by coag ulation assay - 10/24/17 21:30 Prothrombin time (PT) in platelet poor plasma by coagu lation assay 12.9 s 12.2-14.7 INR in platelet poor plasma or blood by coagulation as say 1.0 0.8-1.4 Activated partial thromboplastin time (a PTT) in platelet poor plasma bycoagulation assay - 10/24/17 21:30 Activated partial thromboplastin time (a PTT) in platelet poor plasma bycoagulation assay 28 s 24-35 Serum or plasma choriogonadotropin (preg nawaf test) detection - 10/24/17 21:30 Serum or plasma choriogonadotropin ( test) de tection NEGATIVE NEGATIVE Whole blood basic metabolic panel - 10/08 05/24 21:30 Serum or plasma sodium measurement (moles/volume) 139 mmol/L 135-145 Serum or plasma potassium measurement (moles/volume) 3.5 mmol/L 3.6-5.0 Serum or plasma chloride measurement (moles/volume) 106 mmol/L 98-107 Carbon dioxide 23 mmol/L 21-32 Serum or plasma anion gap determination (moles/volume) 10 mmol/L 5-14 Serum or plasma urea nitrogen measurement (mass/volume ) 8 mg/dL 7-18 Serum or plasma creatinine measurement (mass/volume) 0.81 mg/dL 0.60-1.30 Serum or plasma urea nitrogen/creatinine mass ratio 10 NRG Serum or plasma creatinine measurement w ith calculation of estimated glomerular filtration rate > NRG Serum or plasma glucose measurement (mass/volume) 102 mg/dL 70-105 Serum or plasma calcium measurement (mass/volume) 9.1 mg/dL 8.5-10.1 Complete blood count (CBC) with automate d white blood cell (WBC) differential - 08/14/18 21:40 Blood leukocytes automated count (number/volume) 9.5 10*3/uL 4.3-11.0 Blood erythrocytes automated count (number/volume) 4.73 10*6/uL 4.35-5.85 Venous blood hemoglobin measurement (mass/volume) 14.6 g/dL 11.5-16.0 Blood hematocrit (volume fraction) 42 % 35-52 Automated erythrocyte mean corpuscular volume 89 [ foz_us] 80-99 Automated erythrocyte mean corpuscular h emoglobin (mass per erythrocyte) 31 pg 25-34 Automated erythrocyte mean corpuscular h emoglobin concentration measurement (mass/volume) 35 g/dL 32-36 Automated erythrocyte distribution width ratio 13. 7 % 10.0- 14.5 Automated blood platelet count [...] 10*3 1.0-4.0 Blood monocytes automated count (number/volume) 0. 8 10*3 0.0-1.0 Automated eosinophil count 0.3 10*3/uL 0 .0-0.3 Automated blood basophil count (count/volume) 0.1 10*3/uL 0.0-0.1 Serum or plasma choriogonadotropin (preg nawaf test) detection - 08/14/18 21:40 Serum or plasma choriogonadotropin ( test) de tection NEGATIVE NEGATIVE PT panel in platelet poor plasma by coag ulation assay - 08/14/18 21:40 Prothrombin time (PT) in platelet poor plasma by coagu lation assay 12.5 s 12.2-14.7 INR in platelet poor plasma or blood by coagulation as say 0.9 0.8-1.4 Activated partial thromboplastin time (a PTT) in platelet poor plasma bycoagulation assay - 08/14/18 21:40 Activated partial thromboplastin time (a PTT) in platelet poor plasma bycoagulation assay 29 s 24-35 Fibrin D-dimer FEU measurement in platel et poor plasma (mass/volume) - 08/14/18 21:40 Fibrin [...] 5-14 Serum or plasma urea nitrogen measurement (mass/volume ) 12 mg/dL 7-18 Serum or plasma creatinine measurement (mass/volume) 0.77 mg/dL 0.60-1.30 Serum or plasma urea nitrogen/creatinine mass ratio 16 NRG Serum or plasma creatinine measurement w ith calculation of estimated glomerular filtration rate > NRG Serum or plasma glucose measurement (mass/volume) 89 mg/dL 70-105 Serum or plasma calcium measurement (mass/volume) 9.7 mg/dL 8.5-10.1 Serum or plasma total bilirubin measurement (mass/volu me) 0.3 mg/dL 0.1-1.0 Serum or plasma alkaline phosphatase deborah surement (enzymatic activity/volume) 65 U/L 40-136 Serum or plasma aspartate aminotransfera se measurement (enzymatic activity/volume) 16 U/L 5-34 Serum or plasma alanine aminotransferase measurement (enzymatic activity/volume) 27 U/L 0-55 Serum or plasma protein measurement (mass/volume) 8.0 g/dL 6.4-8.2 Serum or plasma albumin measurement (mass/volume) 4.2 g/dL 3.2-4.5 CALCIUM CORRECTED 9.5 mg/dL 8.5-10.1 Magnesium - 08/14/18 21:40 Magnesium 3.1 mg/dL 1.8-2.4 Serum or plasma troponin i.cardiac measu rement (mass/volume) - 08/14/18 21:40 Serum or plasma troponin i.cardiac measurement (mass/v olume) < ng/mL <0.30 Myoglobin, serum - 10/07/18 21:40 Myoglobin, serum 36.5 ng/mL 10.0-92.0 Influenza virus A and B antigen detectio n - 08/14/18 22:15 FLU RESULT NEGATIVE FOR INFLUENZA A AND B ANTIGENS BY [facility] Complete blood count (CBC) with automate d white blood cell (WBC) differential - 12/18/18 20:03 Blood leukocytes automated count (number/volume) 12.4 10*3/uL 4.3-11.0 Blood erythrocytes automated count (number/volume) 4.69 10*6/uL 4.35-5.85 Venous blood hemoglobin measurement (mass/volume) 14.1 g/dL 11.5-16.0 Blood hematocrit (volume fraction) 42 % 35-52 Automated erythrocyte mean corpuscular volume 90 [ foz_us] 80-99 Automated erythrocyte mean corpuscular h emoglobin (mass per erythrocyte) 30 pg 25-34 Automated erythrocyte mean corpuscular h emoglobin concentration measurement (mass/volume) 33 g/dL 32-36 Automated erythrocyte distribution width ratio 13. 8 % 10.0- 14.5 Automated blood platelet count [...] 10*3 1.0-4.0 Blood monocytes automated count (number/volume) 1. 0 10*3 0.0-1.0 Automated eosinophil count 0.5 10*3/uL 0 .0-0.3 Automated blood basophil count (count/volume) 0.1 10*3/uL 0.0-0.1 Serum or plasma choriogonadotropin (preg nawaf test) detection - 12/18/18 20:03 Serum or plasma choriogonadotropin ( test) de tection NEGATIVE NEGATIVE Comprehensive metabolic panel - 12/18/18 20:03 Serum or plasma sodium measurement (moles/volume) 138 mmol/L 135-145 Serum or plasma potassium measurement (moles/volume) 3.8 mmol/L 3.6-5.0 Serum or plasma chloride measurement (moles/volume) 107 mmol/L 98-107 Carbon dioxide 21 mmol/L 21-32 Serum or plasma anion gap determination (moles/volume) 10 mmol/L 5-14 Serum or plasma urea nitrogen measurement (mass/volume ) 5 mg/dL 7-18 Serum or plasma creatinine measurement (mass/volume) 0.65 mg/dL 0.60-1.30 Serum or plasma urea nitrogen/creatinine mass ratio 8 NRG Serum or plasma creatinine measurement w ith calculation of estimated glomerular filtration rate > NRG Serum or plasma glucose measurement (mass/volume) 98 mg/dL 70-105 Serum or plasma calcium measurement (mass/volume) 9.2 mg/dL 8.5-10.1 Serum or plasma total bilirubin measurement (mass/volu me) 0.2 mg/dL 0.1-1.0 Serum or plasma alkaline phosphatase deborah surement (enzymatic activity/volume) 57 U/L 40-136 Serum or plasma aspartate aminotransfera se measurement (enzymatic activity/volume) 17 U/L 5-34 Serum [...] 0.00-0.79 Interpretation of Helicobacter pylori IgG antibody ass ay Negative Negative Complete urinalysis with reflex to cultu re - 12/18/18 20:07 Urine color determination YELLOW NRG Urine clarity determination CLEAR NR G Urine pH measurement by test strip 7 5-9 Specific gravity of urine by test strip 1.010 1.016-1.022 Urine protein assay by test strip, semi-quantitative NEGATIVE NEGATIVE Urine glucose detection by automated test strip NE GATIVE NEGATIVE Erythrocytes detection in urine sediment by light micr oscopy NEGATIVE NEGATIVE Urine ketones detection by automated test strip NE GATIVE NEGATIVE Urine nitrite detection by test strip NEGATIVE NEGATIVE Urine total bilirubin detection by test strip NEGA TIVE NEGATIVE Urine urobilinogen measurement by automated test strip (mass/volume) NORMAL NORMAL Urine leukocyte esterase detection by dipstick 1+ NEGATIVE Automated urine sediment erythrocyte cou nt by microscopy (number/high power field) NONE NRG Automated urine sediment leukocyte count by microscopy (number/high power field) [HPF] NRG Bacteria detection in urine sediment by light microsco py NONE NRG Squamous epithelial cells detection in u rine sediment by light microscopy 25-50 NRG Crystals detection in urine sediment by light microsco py NONE NRG Casts detection in urine sediment by light microscopy NONE NRG Mucus detection in urine sediment by light microscopy NEGATIVE NRG Complete urinalysis with reflex to culture NO NRG Automated blood complete blood count (he mogram) panel - 01/16/19 03:25 Blood leukocytes automated count (number/volume) 15.0 10*3/uL 4.3-11.0 Blood erythrocytes automated count (number/volume) 4.52 10*6/uL 4.35-5.85 Venous blood hemoglobin measurement (mass/volume) 13.5 g/dL 11.5-16.0 Blood hematocrit (volume fraction) 41 % 35-52 Automated erythrocyte mean corpuscular volume 91 [ foz_us] 80-99 Automated erythrocyte mean corpuscular h emoglobin (mass per erythrocyte) 30 pg 25-34 Automated erythrocyte mean corpuscular h emoglobin concentration measurement (mass/volume) 33 g/dL 32-36 Automated erythrocyte distribution width ratio 13. 3 % 10.0- 14.5 Automated blood platelet count [...] 5-14 Serum or plasma urea nitrogen measurement (mass/volume ) 8 mg/dL 7-18 Serum or plasma creatinine measurement (mass/volume) 0.60 mg/dL 0.60-1.30 Serum or plasma urea nitrogen/creatinine mass ratio 13 NRG Serum or plasma creatinine measurement w ith calculation of estimated glomerular filtration rate > NRG Serum or plasma glucose measurement (mass/volume) 119 mg/dL 70-105 Serum or plasma calcium measurement (mass/volume) 9.5 mg/dL 8.5-10.1 Serum or plasma total bilirubin measurement (mass/volu me) 0.2 mg/dL 0.1-1.0 Serum or plasma alkaline phosphatase deborah surement (enzymatic activity/volume) 67 U/L 40-136 Serum or plasma aspartate aminotransfera se measurement (enzymatic activity/volume) 16 U/L 5-34 Serum or plasma alanine aminotransferase measurement (enzymatic activity/volume) 21 U/L 0-55 Serum or plasma protein measurement (mass/volume) 7.4 g/dL 6.4-8.2 Serum or plasma albumin measurement (mass/volume) 4.2 g/dL 3.2-4.5 CALCIUM CORRECTED 9.3 mg/dL 8.5-10.1 Lipase - 01/16/19 03:25 Lipase 31 U/L 8-78 Automated dipstick urinalysis - 01/16/19 04:20 Urine color determination YELLOW NRG Urine clarity determination CLEAR NR G Urine pH measurement by test strip 6.0 5-9 Specific gravity of urine by test strip >= 1.016-1.022 Urine protein assay by test strip, semi-quantitative NEGATIVE NEGATIVE Urine glucose detection by automated test strip NE GATIVE NEGATIVE Erythrocytes detection in urine sediment by light micr oscopy NEGATIVE NEGATIVE Urine ketones detection by automated test strip NE GATIVE NEGATIVE Urine nitrite detection by test strip NEGATIVE NEGATIVE Urine total bilirubin detection by test strip NEGA TIVE NEGATIVE Urine urobilinogen measurement by automated test strip (mass/volume) 0.2 mg/dL NORMAL Urine leukocyte esterase detection by dipstick NEG ATIVE NEGATIVE Urine beta human chorionic gonadotropin (hCG) measurement - 01/16/19 04:20 Urine beta human chorionic gonadotropin (hCG) measurem ent NEGATIVE NEGATIVE Bacterial urine culture - 01/16/19 04:20 Bacterial urine culture NG NRG Complete blood count (CBC) with automate d white blood cell (WBC) differential - 01/17/19 04:00 Blood leukocytes automated count (number/volume) 9.2 10*3/uL 4.3-11.0 Blood erythrocytes automated count (number/volume) 4.31 10*6/uL 4.35-5.85 Venous blood hemoglobin measurement (mass/volume) 12.9 g/dL 11.5-16.0 Blood hematocrit (volume fraction) 40 % 35-52 Automated erythrocyte mean corpuscular volume 92 [ foz_us] 80-99 Automated erythrocyte mean corpuscular h emoglobin (mass per erythrocyte) 30 pg 25-34 Automated erythrocyte mean corpuscular h emoglobin concentration measurement (mass/volume) 33 g/dL 32-36 Automated erythrocyte distribution width ratio 13. 8 % 10.0- 14.5 Automated blood platelet count [...] 10*3 1.0-4.0 Blood monocytes automated count (number/volume) 0. 6 10*3 0.0-1.0 Automated eosinophil count 0.4 10*3/uL 0 .0-0.3 Automated blood basophil count (count/volume) 0.1 10*3/uL 0.0-0.1 Comprehensive metabolic panel - 01/17/19 04:00 Serum or plasma sodium measurement (moles/volume) 139 mmol/L 135-145 Serum or plasma potassium measurement (moles/volume) 3.8 mmol/L 3.6-5.0 Serum or plasma chloride measurement (moles/volume) 106 mmol/L 98-107 Carbon dioxide 22 mmol/L 21-32 Serum or plasma anion gap determination (moles/volume) 11 mmol/L 5-14 Serum or plasma urea nitrogen measurement (mass/volume ) 5 mg/dL 7-18 Serum or plasma creatinine measurement (mass/volume) 0.67 mg/dL 0.60-1.30 Serum or plasma urea nitrogen/creatinine mass ratio 7 NRG Serum or plasma creatinine measurement w ith calculation of estimated glomerular filtration rate > NRG Serum or plasma glucose measurement (mass/volume) 88 mg/dL 70-105 Serum or plasma calcium measurement (mass/volume) 8.5 mg/dL 8.5-10.1 Serum or plasma total bilirubin measurement (mass/volu me) 0.4 mg/dL 0.1-1.0 Serum or plasma alkaline phosphatase deborah surement (enzymatic activity/volume) 55 U/L 40-136 Serum or plasma aspartate aminotransfera se measurement (enzymatic activity/volume) 22 U/L 5-34 Serum or plasma alanine aminotransferase measurement (enzymatic activity/volume) 22 U/L 0-55 Serum or plasma protein measurement (mass/volume) 6.6 g/dL 6.4-8.2 Serum or plasma albumin measurement (mass/volume) 3.7 g/dL 3.2-4.5 CALCIUM CORRECTED 8.7 mg/dL 8.5-10.1 Complete urinalysis with reflex to cultu re - 02/20/19 17:23 Urine color determination YELLOW NRG Urine clarity determination CLEAR NR G Urine pH measurement by test strip 7.5 5-9 Specific gravity of urine by test strip 1.010 1.016-1.022 Urine protein assay by test strip, semi-quantitative NEGATIVE NEGATIVE Urine glucose detection by automated test strip NE GATIVE NEGATIVE Erythrocytes detection in urine sediment by light micr oscopy NEGATIVE NEGATIVE Urine ketones detection by automated test strip NE GATIVE NEGATIVE Urine nitrite detection by test strip NEGATIVE NEGATIVE Urine total bilirubin detection by test strip NEGA TIVE NEGATIVE Urine urobilinogen measurement by automated test strip (mass/volume) NORMAL NORMAL Urine leukocyte esterase detection by dipstick TRA CE NEGATIVE Automated urine sediment erythrocyte cou nt by microscopy (number/high power field) RARE NRG Automated urine sediment leukocyte count by microscopy (number/high power field) RARE NRG Bacteria detection in urine sediment by light microsco py FEW NRG Squamous epithelial cells detection in u rine sediment by light microscopy 25-50 NRG Crystals detection in urine sediment by light microsco py NONE NRG Casts detection in urine sediment by light microscopy NONE NRG Mucus detection in urine sediment by light microscopy NEGATIVE NRG Complete urinalysis with reflex to culture NO NRG Complete blood count (CBC) with automate d white blood cell (WBC) differential - 02/20/19 17:31 Blood leukocytes automated count (number/volume) 13.3 10*3/uL 4.3-11.0 Blood erythrocytes automated count (number/volume) 4.62 10*6/uL 4.35-5.85 Venous blood hemoglobin measurement (mass/volume) 14.1 g/dL 11.5-16.0 Blood hematocrit (volume fraction) 42 % 35-52 Automated erythrocyte mean corpuscular volume 92 [ foz_us] 80-99 Automated erythrocyte mean corpuscular h emoglobin (mass per erythrocyte) 31 pg 25-34 Automated erythrocyte mean corpuscular h emoglobin concentration measurement (mass/volume) 33 g/dL 32-36 Automated erythrocyte distribution width ratio 13. 6 % 10.0- 14.5 Automated blood platelet count [...] 10*3 1.0-4.0 Blood monocytes automated count (number/volume) 0. 7 10*3 0.0-1.0 Automated eosinophil count 0.6 10*3/uL 0 .0-0.3 Automated blood basophil count (count/volume) 0.1 10*3/uL 0.0-0.1 Comprehensive metabolic panel - 02/20/19 17:31 Serum or plasma sodium measurement (moles/volume) 139 mmol/L 135-145 Serum or plasma potassium measurement (moles/volume) 3.7 mmol/L 3.6-5.0 Serum or plasma chloride measurement (moles/volume) 102 mmol/L 98-107 Carbon dioxide 21 mmol/L 21-32 Serum or plasma anion gap determination (moles/volume) 16 mmol/L 5-14 Serum or plasma urea nitrogen measurement (mass/volume ) 6 mg/dL 7-18 Serum or plasma creatinine measurement (mass/volume) 0.56 mg/dL 0.60-1.30 Serum or plasma urea nitrogen/creatinine mass ratio 11 NRG Serum or plasma creatinine measurement w ith calculation of estimated glomerular filtration rate > NRG Serum or plasma glucose measurement (mass/volume) 115 mg/dL 70-105 Serum or plasma calcium measurement (mass/volume) 8.8 mg/dL 8.5-10.1 Serum or plasma total bilirubin measurement (mass/volu me) 0.3 mg/dL 0.1-1.0 Serum or plasma alkaline phosphatase deborah surement (enzymatic activity/volume) 63 U/L 40-136 Serum or plasma aspartate aminotransfera se measurement (enzymatic activity/volume) 15 U/L 5-34 Serum or plasma alanine aminotransferase measurement (enzymatic activity/volume) 20 U/L 0-55 Serum or plasma protein measurement (mass/volume) 7.1 g/dL 6.4-8.2 Serum or plasma albumin measurement (mass/volume) 4.0 g/dL 3.2-4.5 CALCIUM CORRECTED 8.8 mg/dL 8.5-10.1 Lipase - 02/20/19 17:31 Lipase 24 U/L 8-78 Gram stain microscopy - 06/05/19 15:10 Gram stain microscopy RED BLOOD CELL DEBRIS NRG Bacteria identification in wound by cult ure - 06/05/19 15:10 Bacteria identification in wound by culture [id number] NRG FREE TEXT EXTERNAL ACTINOMYCETES TURICENSIS PREDOM INANT NRG QUANTITY OF GROWTH FEW NRG FREE TEXT ENTRY 2 ID REPORTED 06/08/19 8:25 NRG Complete blood count (CBC) with automate d white blood cell (WBC) differential - 06/05/19 15:30 Blood leukocytes automated count (number/volume) 11.8 10*3/uL 4.3-11.0 Blood erythrocytes automated count (number/volume) 4.33 10*6/uL 4.35-5.85 Venous blood hemoglobin measurement (mass/volume) 13.1 g/dL 11.5-16.0 Blood hematocrit (volume fraction) 39 % 35-52 Automated erythrocyte mean corpuscular volume 91 [ foz_us] 80-99 Automated erythrocyte mean corpuscular h emoglobin (mass per erythrocyte) 30 pg 25-34 Automated erythrocyte mean corpuscular h emoglobin concentration measurement (mass/volume) 33 g/dL 32-36 Automated erythrocyte distribution width ratio 13. 4 % 10.0- 14.5 Automated blood platelet count (count/volume) 342 10*3/uL 130-400 Automated blood platelet mean volume measurement 10.2 [foz_us] 7.4-10.4 Automated blood neutrophils/100 leukocytes 71 % 42-75 Automated blood lymphocytes/100 leukocytes 19 % 12-44 Blood monocytes/100 leukocytes 7 % 0-12 Automated blood eosinophils/100 leukocytes 2 % 0-10 Automated blood basophils/100 leukocytes 1 % 0-10 Blood neutrophils automated count (number/volume) 8.4 10*3 1.8-7.8 Blood lymphocytes automated count (number/volume) 2.3 10*3 1.0-4.0 Blood monocytes automated count (number/volume) 0. 8 10*3 0.0-1.0 Automated eosinophil count 0.3 10*3/uL 0 .0-0.3 Automated blood basophil count (count/volume) 0.1 10*3/uL 0.0-0.1 Whole blood basic metabolic panel - 05/09 07/27 15:30 Serum or plasma sodium measurement (moles/volume) 138 mmol/L 135-145 Serum or plasma potassium measurement (moles/volume) 4.0 mmol/L 3.6-5.0 Serum or plasma chloride measurement (moles/volume) 103 mmol/L 98-107 Carbon dioxide 21 mmol/L 21-32 Serum or plasma anion gap determination (moles/volume) 14 mmol/L 5-14 Serum or plasma urea nitrogen measurement (mass/volume ) 9 mg/dL 7-18 Serum or plasma creatinine measurement (mass/volume) 0.57 mg/dL 0.60-1.30 Serum or plasma urea nitrogen/creatinine mass ratio 16 NRG Serum or plasma creatinine measurement w ith calculation of estimated glomerular filtration rate > NRG Serum or plasma glucose measurement (mass/volume) 99 mg/dL 70-105 Serum or plasma calcium measurement (mass/volume) 8.8 mg/dL 8.5-10.1 Complete urinalysis with reflex to cultu re - 07/03/19 20:25 Urine color determination YELLOW NRG Urine clarity determination CLEAR NR G Urine pH measurement by test strip 6.0 5-9 Specific gravity of urine by test strip 1.020 1.016-1.022 Urine protein assay by test strip, semi-quantitative NEGATIVE NEGATIVE Urine glucose detection by automated test strip NE GATIVE NEGATIVE Erythrocytes detection in urine sediment by light micr oscopy 3+ NEGATIVE Urine ketones detection by automated test strip NE GATIVE NEGATIVE Urine nitrite detection by test strip NEGATIVE NEGATIVE Urine total bilirubin detection by test strip NEGA TIVE NEGATIVE Urine urobilinogen measurement by automated test strip (mass/volume) 0.2 mg/dL NORMAL Urine leukocyte esterase detection by dipstick NEG ATIVE NEGATIVE Automated urine sediment erythrocyte cou nt by microscopy (number/high power field) NONE NRG Automated urine sediment leukocyte count by microscopy (number/high power field) [HPF] NRG Bacteria detection in urine sediment by light microsco py NEGATIVE NRG Squamous epithelial cells detection in u rine sediment by light microscopy 2-5 NRG Crystals detection in urine sediment by light microsco py NONE NRG Casts detection in urine sediment by light microscopy NONE NRG Mucus detection in urine sediment by light microscopy NONE NRG Complete urinalysis with reflex to culture NO NRG Complete blood count (CBC) with automate d white blood cell (WBC) differential - 07/03/19 20:27 Blood leukocytes automated count (number/volume) 10.9 10*3/uL 4.3-11.0 Blood erythrocytes automated count (number/volume) 4.38 10*6/uL 4.35-5.85 Venous blood hemoglobin measurement (mass/volume) 13.3 g/dL 11.5-16.0 Blood hematocrit (volume fraction) 40 % 35-52 Automated erythrocyte mean corpuscular volume 92 [ foz_us] 80-99 Automated erythrocyte mean corpuscular h emoglobin (mass per erythrocyte) 30 pg 25-34 Automated erythrocyte mean corpuscular h emoglobin concentration measurement (mass/volume) 33 g/dL 32-36 Automated erythrocyte distribution width ratio 13. 5 % 10.0- 14.5 Automated blood platelet count (count/volume) 312 10*3/uL 130-400 Automated blood platelet mean volume measurement 10.8 [foz_us] 7.4-10.4 Automated blood neutrophils/100 leukocytes 53 % 42-75 Automated blood lymphocytes/100 leukocytes 36 % 12-44 Blood monocytes/100 leukocytes 8 % 0-12 Automated blood eosinophils/100 leukocytes 3 % 0-10 Automated blood basophils/100 leukocytes 1 % 0-10 Blood neutrophils automated count (number/volume) 5.7 10*3 1.8-7.8 Blood lymphocytes automated count (number/volume) 3.9 10*3 1.0-4.0 Blood monocytes automated count (number/volume) 0. 9 10*3 0.0-1.0 Automated eosinophil count 0.3 10*3/uL 0 .0-0.3 Automated blood basophil count (count/volume) 0.1 10*3/uL 0.0-0.1 Comprehensive metabolic panel - 07/03/19 20:27 Serum or plasma sodium measurement (moles/volume) 141 mmol/L 135-145 Serum or plasma potassium measurement (moles/volume) 3.7 mmol/L 3.6-5.0 Serum or plasma chloride measurement (moles/volume) 103 mmol/L 98-107 Carbon dioxide 26 mmol/L 21-32 Serum or plasma anion gap determination (moles/volume) 12 mmol/L 5-14 Serum or plasma urea nitrogen measurement (mass/volume ) 11 mg/dL 7-18 Serum or plasma creatinine measurement (mass/volume) 0.76 mg/dL 0.60-1.30 Serum or plasma urea nitrogen/creatinine mass ratio 14 NRG Serum or plasma creatinine measurement w ith calculation of estimated glomerular filtration rate > NRG Serum or plasma glucose measurement (mass/volume) 90 mg/dL 70-105 Serum or plasma calcium measurement (mass/volume) 9.2 mg/dL 8.5-10.1 Serum or plasma total bilirubin measurement (mass/volu me) 0.2 mg/dL 0.1-1.0 Serum or plasma alkaline phosphatase deborah surement (enzymatic activity/volume) 57 U/L 40-136 Serum or plasma aspartate aminotransfera se measurement (enzymatic activity/volume) 16 U/L 5-34 Serum or plasma alanine aminotransferase measurement (enzymatic activity/volume) 16 U/L 0-55 Serum or plasma protein measurement (mass/volume) 7.0 g/dL 6.4-8.2 Serum or plasma albumin measurement (mass/volume) 4.1 g/dL 3.2-4.5 CALCIUM CORRECTED 9.1 mg/dL 8.5-10.1 CULTURE, ANAEROBIC AND AEROBIC - 9 13:06 CULTURE, ANAEROBIC BACTERIA W/GRAM STAIN SEE NOTE NRG CULTURE, AEROBIC BACTERIA SEE NOTE NRG Complete blood count (CBC) with automate d white blood cell (WBC) differential - 11/04/19 16:44 Blood leukocytes automated count (number/volume) 8.4 10*3/uL 4.3-11.0 Blood erythrocytes automated count (number/volume) 4.80 10*6/uL 4.35-5.85 Venous blood hemoglobin measurement (mass/volume) 14.7 g/dL 11.5-16.0 Blood hematocrit (volume fraction) 43 % 35-52 Automated erythrocyte mean corpuscular volume 90 [ foz_us] 80-99 Automated erythrocyte mean corpuscular h emoglobin (mass per erythrocyte) 31 pg 25-34 Automated erythrocyte mean corpuscular h emoglobin concentration measurement (mass/volume) 34 g/dL 32-36 Automated erythrocyte distribution width ratio 13. 2 % 10.0- 14.5 Automated blood platelet count (count/volume) 359 10*3/uL 130-400 Automated blood platelet mean volume measurement 10.5 [foz_us] 7.4-10.4 Automated blood neutrophils/100 leukocytes 50 % 42-75 Automated blood lymphocytes/100 leukocytes 34 % 12-44 Blood monocytes/100 leukocytes 9 % 0-12 Automated blood eosinophils/100 leukocytes 6 % 0-10 Automated blood basophils/100 leukocytes 1 % 0-10 Blood neutrophils automated count (number/volume) 4.2 10*3 1.8-7.8 Blood lymphocytes automated count (number/volume) 2.8 10*3 1.0-4.0 Blood monocytes automated count (number/volume) 0. 8 10*3 0.0-1.0 Automated eosinophil count 0.5 10*3/uL 0 .0-0.3 Automated blood basophil count (count/volume) 0.1 10*3/uL 0.0-0.1 PT panel in platelet poor plasma by coag ulation assay - 12/20/19 07:07 Prothrombin time (PT) in platelet poor plasma by coagu lation assay 12.8 s 12.2-14.7 INR in platelet poor plasma or blood by coagulation as say 0.9 0.8-1.4 Activated partial thromboplastin time (a PTT) in platelet poor plasma bycoagulation assay - 12/20/19 07:07 Activated partial thromboplastin time (a PTT) in platelet poor plasma bycoagulation assay 28 s 24-35 Complete blood count (CBC) with automate d white blood cell (WBC) differential - 12/20/19 07:10 Blood leukocytes automated count (number/volume) 11.5 10*3/uL 4.3-11.0 Blood erythrocytes automated count (number/volume) 4.62 10*6/uL 4.35-5.85 Venous blood hemoglobin measurement (mass/volume) 13.9 g/dL 11.5-16.0 Blood hematocrit (volume fraction) 42 % 35-52 Automated erythrocyte mean corpuscular volume 91 [ foz_us] 80-99 Automated erythrocyte mean corpuscular h emoglobin (mass per erythrocyte) 30 pg 25-34 Automated erythrocyte mean corpuscular h emoglobin concentration measurement (mass/volume) 33 g/dL 32-36 Automated erythrocyte distribution width ratio 13. 4 % 10.0- 14.5 Automated blood platelet count (count/volume) 373 10*3/uL 130-400 Automated blood platelet mean volume measurement 10.5 [foz_us] 7.4-10.4 Automated blood neutrophils/100 leukocytes 67 % 42-75 Automated blood lymphocytes/100 leukocytes 22 % 12-44 Blood monocytes/100 leukocytes 6 % 0-12 Automated blood eosinophils/100 leukocytes 3 % 0-10 Automated blood basophils/100 leukocytes 1 % 0-10 Blood neutrophils automated count (number/volume) 7.8 10*3 1.8-7.8 Blood lymphocytes automated count (number/volume) 2.5 10*3 1.0-4.0 Blood monocytes automated count (number/volume) 0. 7 10*3 0.0-1.0 Automated eosinophil count 0.4 10*3/uL 0 .0-0.3 Automated blood basophil count (count/volume) 0.1 10*3/uL 0.0-0.1 Comprehensive metabolic panel - 12/20/19 07:10 Serum or plasma sodium measurement (moles/volume) 135 mmol/L 135-145 Serum or plasma potassium measurement (moles/volume) 4.2 mmol/L 3.6-5.0 Serum or plasma chloride measurement (moles/volume) 101 mmol/L 98-107 Carbon dioxide 24 mmol/L 21-32 Serum or plasma anion gap determination (moles/volume) 10 mmol/L 5-14 Serum or plasma urea nitrogen measurement (mass/volume ) 9 mg/dL 7-18 Serum or plasma creatinine measurement (mass/volume) 0.60 mg/dL 0.60-1.30 Serum or plasma urea nitrogen/creatinine mass ratio 15 NRG Serum or plasma creatinine measurement w ith calculation of estimated glomerular filtration rate > NRG Serum or plasma glucose measurement (mass/volume) 90 mg/dL 70-105 Serum or plasma calcium measurement (mass/volume) 8.8 mg/dL 8.5-10.1 Serum or plasma total bilirubin measurement (mass/volu me) 0.3 mg/dL 0.1-1.0 Serum or plasma alkaline phosphatase deborah surement (enzymatic activity/volume) 75 U/L 40-136 Serum or plasma aspartate aminotransfera se measurement (enzymatic activity/volume) 14 U/L 5-34 Serum or plasma alanine aminotransferase measurement (enzymatic activity/volume) 18 U/L 0-55 Serum or plasma protein measurement (mass/volume) 7.3 g/dL 6.4-8.2 Serum or plasma albumin measurement (mass/volume) 4.1 g/dL 3.2-4.5 CALCIUM CORRECTED 8.7 mg/dL 8.5-10.1 Magnesium - 12/20/19 07:10 Magnesium 2.1 mg/dL 1.6-2.4 Lipase - 12/20/19 07:10 Lipase 23 U/L 8-78 TROPONIN I FS - 12/20/19 07:10 TROPONIN I FS < 0.30 <0.30 PROBNP FS - 12/20/19 07:10 PROBNP FS 40.3 pg/mL <75.0 Encounters ACCT No. Visit Date/Time Discharge Status Pt. Type Provider Facility Loc./Unit Complaint [id number] 11/21/2019 13:30:00 11/21/2019 23:59:5 9 [id number] 07/07/2019 11:50:00 Document Registration [id number] 12/20/2019 06:57:00 020 09:09:00 DIS Outpatient RALEIGH LAWRENCE, EMILIE [facility] ER FS CHEST PAIN, SOB [id number] 11/04/2019 16:02:00 17:20:00 DIS Outpatient ROSIE LAWRENCE, GANGA Jesus [facility] ER FS CONGESTION,SOB [id number] 09/15/2019 19:41:00 20:22:00 DIS Emergency ALEXEY LAWRENCE, CHEN Siegel [facility] ER FS L FOOT PAIN [id number] 07/03/2019 19:24:00 22:27:00 DIS Outpatient RALEIGH LAWRENCE, EMILIE Bailey [facility] ER FS NAUSEA, FEVER, CHILLS, BODY ACHE [id number] 06/05/2019 14:34:00 15:47:00 DIS Outpatient DONY HERNANDEZ DO [facility] ER FS VAGINAL ABSCESS [id number] 06/01/2019 23:19:00 00:58:00 DIS Outpatient DA HOLLAND DO [facility] ER FS BOIL ON VAGINAL AREA [id number] 04/05/2019 15:26:00 16:21:00 DIS Emergency UMU LAWRENCE, JACOB Paz [facility] ER FS MIGRAINE [id number] 02/20/2019 16:57:00 18:12:00 DIS Emergency FEMI LAWRENCE, IVAN siegel [facility] ER FS LOW BACK PAIN [id number] 02/16/2019 20:09:00 20:56:00 DIS Outpatient DIANNE PAPPAS DO [facility] ER FS MIGRAINE [id number] 01/16/2019 07:52:00 14:00:00 DIS Inpatient NICHOLAS CRISTOBAL DO, [facility] 4TH LOWER ABDOMINAL PAIN [id number] 12/18/2018 19:32:00 21:38:00 DIS Emergency SHANELL HANLEY APRN [facility] ER VOMITTING BLOOD [id number] 08/14/2018 21:08:00 00:57:00 DIS Emergency ELI LAWRENCE, ELVIRA Mckoy [facility] ER CP [id number] 10/24/2017 21:17:00 017 22:35:00 DIS Emergency LUIS ANGEL CAROL MOREAU [facility] ER VAG PAIN W BLEEDING [id number] 02/12/2016 10:27:00 016 15:30:00 DIS Outpatient CAMRYN CORONA MD [facility] SDC ABD PAIN,N/V [id number] 02/11/2016 11:17:00 016 13:54:00 DIS Outpatient CAMRYN CORONA MD [facility] PREOP ABD PAIN,N/V [id number] 02/09/2016 11:09:00 Document Registration [id number] 02/07/2016 16:24:[address] Inpatient YOON MAHER DO [facility] 4TH HYPOLKALEMIA,NAUSEA,VOMITING ,ABD PAIN
--- NOTE | 2020-01-29 12:45 | NUR ---
Pt works at [employer] and stated they wanted her to come to ER to be evaluated before coming back to work. Pt reports a 102 temp at home before taking 1500mg of Tylenol. Pt is afebrile at this time. Pt has not exemplified a cough at this time.
--- NOTE | 2020-01-29 13:01 | ED Cough/URI ---
General Chief Complaint: Cough/Cold/Flu Symptoms Stated Complaint: FEVER/COUGH Source: patient Exam Limitations: no limitations History of Present Illness Date Seen by Provider: Jan 29, 2020 Time Seen by Provider: 12:35 Initial Comments 34 yr old female with cough and sore throat since Wednesday. No documented fever. Pt also reports some dysphagia. Pt has given informed consent for diagnostic and therapeutic care. Pt denies travel or being with anyone who is sick. 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 NO CV PUL GI or Renal dx. Timing/Duration: week (since Wednesday) Severity/Quality: mild, dry cough (no coughing for 20 minutes in room with patient) Prior Episodes/Possible Cause: occasional episodes (pt is a frequent user of the ED) Associated Symptoms: cough, fever/chills (chills no fever documented) Allergies and Home Medications Allergies Coded Allergies: No Known Drug Allergies (Verified , 02/20/19) Home Medications Azithromycin 250 Mg Tablet, 250 MG PO DAILY Prescribed by: EMILIE STOREY on 07/03/192219 Azithromycin 250 Mg Tablet, 250 MG PO UD TAKE 2 TABLETS TODAY, THEN TAKE 1 TABLET DAILY FOR 4 MORE DAYS Prescribed by: GANGA VELEZ MD on 11/04/19 1707 Cephalexin 500 Mg Capsule, 500 MG PO TID Prescribed by: AMALIA ROBERSON on 06/02/1942 Cyclobenzaprine HCl 10 Mg Tablet, 10 MG PO Q8H PRN for SPASMS Prescribed by: IVAN KAHN on 02/20/19 175 Hydrocodone Bit/Acetaminophen 1 Tab Tab, 1 EACH PO Q8H PRN for PAIN-MODERATE Prescribed by: DONY HERNANDEZ on 06/05/19 1531 Hydrocodone/Acetaminophen 1 Each Tablet, 1 TAB PO Q4-6HR Prescribed by: AMALIA ROBERSON on [birth year]02/1942 Naproxen 500 Mg Tablet, 500 MG PO BID Prescribed by: IVAN KAHN on 02/20/191758 Sulfamethoxazole/Trimethoprim 1 Each Tablet, 1 EACH PO BID Prescribed by: AMALIA ROBERSON on [birth year]02/1942 Patient Home Medication List Home Medication List Reviewed: Yes Review of Systems Review of Systems Constitutional: chills (pt reports that she did take a temperature and it was 102 but some issues of veracity) EENTM: nose congestion, throat pain Respiratory: cough (but not witnessed in the ED by this examiner) Gastrointestinal: no symptoms reported 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: no symptoms reported : No (zero possibility per patient) Musculoskeletal: other (mild achiness) Skin: no symptoms reported Psychiatric/Neurological: Anxiety Hematologic/Lymphatic: No Symptoms Reported Immunological/Allergic: no symptoms reported Past W[place]-Uhinac-Qxgpod Hx Past Med/Social Hx: Reviewed Nursing Past Med/Soc Hx Patient Social History Drug of Choice: Marijuana Type Used: Cigarettes 2nd Hand Smoke Exposure: No Recent Foreign Travel: No Contact w/Someone Who Travel: No Recent Hopitalizations: No Immunizations Up To Date Tetanus Booster (TDap): Less than 5yrs PED Vaccines UTD: Yes Seasonal Allergies Seasonal Allergies: No Past Medical History Surgeries: Yes Abdominal, Section, Gallbladder Respiratory: No Currently Using CPAP: No Currently Using BIPAP: No Cardiac: No Neurological: Yes Headaches /Migraines 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 Disorders: No 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: No Gastrointestinal: Yes Diverticulosis Musculoskeletal: No Endocrine: No HEENT: No Loss of Vision: Denies Hearing Impairment: Denies Cancer: No Psychosocial: No Anxiety, Depression Integumentary: No Blood Disorders: No Adverse Reaction/Blood Tranf: No Family Medical History Arthritis 19 MOTHER GRANDMA-MATERAL Colon cancer GRANDP-MATERANL Completed stroke 19 FATHER Congenital disease 19 FATHER Congenital heart disease 19 FATHER Diabetes mellitus 19 FATHER GRANDMA-MATERAL Hypercholesterolemia Myocardial infarction 19 FATHER GRANDP-MATERANL Heart Disease, Cancer, Diabetes Physical Exam Vital Signs - First Documented 01/29/20 12:45 Temp 36.6 Pulse 105 Resp 15 B/P (MAP) 135/84 (101) Pulse Ox 98 O2 Delivery Room Air Capillary Refill : Height: 5'5.00" Weight: 196lbs. 0.0oz. 88.226804ih; 36.00 BMI Method:Stated General Appearance: WD/WN, mild distress (no cough observed over 20 minutes) Eyes: Bilateral Eye Normal Inspection, Bilateral Eye PERRL, Bilateral Eye EOMI HEENT: PERRL/EOMI, pharyngeal erythema, other (tonsillar enlargement 2cm bilaterally) Neck: non-tender Respiratory: chest non-tender, lungs clear, normal breath sounds, no respiratory distress, no accessory muscle use Cardiovascular: normal peripheral pulses, regular rate, rhythm, no edema, no gallop, no JVD, no murmur Gastrointestinal: normal bowel sounds, non tender, soft, no organomegaly, no pulsatile mass (no inguinal lymphadenopathy) Extremities: normal range of motion, non-tender, normal inspection, no pedal edema, no calf tenderness, normal capillary refill 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85 10^6/uL Hemoglobin 13.7 11.5-16.0 G/DL Hematocrit 41 35-52 % Mean Corpuscular Volume 90 80-99 FL Mean Corpuscular Hemoglobin 30 25-34 PG Mean Corpuscular Hemoglobin Concent 33 32-36 G/DL Red Cell Distribution Width 13.4 10.0-14.5 % Platelet Count 349 130-400 10^3/uL Mean Platelet Volume 9.9 7.4-10.4 FL Neutrophils (%) (Auto) 57 42-75 % Lymphocytes (%) (Auto) 31 12-44 % Monocytes (%) (Auto) 8 0-12 % Eosinophils (%) (Auto) 4 0-10 % Basophils (%) (Auto) 1 0-10 % Neutrophils # (Auto) 5.8 1.8-7.8 X 10^3 Lymphocytes # (Auto) 3.2 1.0-4.0 X 10^3 Monocytes # (Auto) 0.8 0.0-1.0 X 10^3 Eosinophils # (Auto) 0.4 H 0.0-0.3 10^3/uL Basophils # (Auto) 0.1 0.0-0.1 10^3/uL Sodium Level 137 135-145 MMOL/L Potassium Level 3.7 3.6-5.0 MMOL/L Chloride Level 104 98-107 MMOL/L Carbon Dioxide Level 23 21-32 MMOL/L Anion Gap 10 5-14 MMOL/L Blood Urea Nitrogen 6 L 7-18 MG/DL Creatinine 0.52 L 0.60-1.30 MG/DL Estimat Glomerular Filtration Rate > 60 BUN/Creatinine Ratio 12 Glucose Level 103 70-105 MG/DL Calcium Level 8.8 8.5-10.1 MG/DL Corrected Calcium 8.8 8.5-10.1 MG/DL Total Bilirubin 0.2 0.1-1.0 MG/DL Aspartate Amino Transf (AST/SGOT) 16 5-34 U/L Alanine Aminotransferase (ALT/SGPT) 25 0-55 U/L Alkaline Phosphatase 71 40-136 U/L Total Protein 7.1 6.4-8.2 GM/DL Albumin 4.0 3.2-4.5 GM/DL Micro Results Microbiology 01/29/20 Influenza Types A,B Antigen (NIKIA) - Final, Complete My Orders Orders - MAKI MELCHOR DO Rapid Strep A Screen (01/29/20 12:29) Influenza A And B Antigens (01/29/20 12:29) Cbc With Automated Diff (01/29/20 13:18) Comprehensive Metabolic Panel (01/29/20 13:18) Vital Signs/I&O 01/29/20 01/29/20 12:45 13:00 Temp 36.6 Pulse 105 Resp 15 B/P (MAP) 135/84 (101) Pulse Ox 98 O2 Delivery Room Air Room Air Capillary Refill : Progress Note : Time: 14:19 Progress Note Pt has negative strep and influenza screens. No documented fever. No other high risk issues. Pt wants a work excuse for today. COVID-19 patient education given and advised to return if she develops lower respiratory symptoms or fevers. Follow up with primary care provider. Pt understands she needs to rest and hydrate and can continue with tylenol for fever as needed. Departure Impression Primary Impression: Upper respiratory infection Disposition: HOME, SELF-CARE Condition: Improved Departure-Patient Inst. Referrals: NO,LOCAL PHYSICIAN (PCP/Family) Primary Care Physician Patient Instructions: Cough, Adult (DC), Cough, Runny Nose, and the Common Cold (DC) Work/School Note: Work Release Form Date Seen in the Emergency Department: Jan 29, 2020 Return to Work: Jan 30, 2020 Restrictions: No Restrictions Other Restrictions Listed Below: Pt seen in ED on and needs rest and hydration today. RTW 24MAR Pt has a URI and hydration and rest recommended. No risk factors for COVID 19 but given COVID 19 patient education information. MAKI MELCHOR DO Jan 29, 2020 13:01
[2020-01-29 13:30] LABS: HEMATOCRIT 41 % (35-52); HEMOGLOBIN 13.7 G/DL (11.5-16.0); MEAN CORPUSCULAR HEMOGLOBIN 30 PG (25-34); WHITE BLOOD COUNT 10.3 10^3/uL (4.3-11.0)
[2020-01-29 13:31] LABS: BASOPHILS # (AUTO) 0.1 10^3/uL (0.0-0.1); BASOPHILS % (AUTO) 1 % (0-10); EOSINOPHILS # (AUTO) 0.4 10^3/uL (0.0-0.3); EOSINOPHILS % (AUTO) 4 % (0-10); LYMPHOCYTES # (AUTO) 3.2 X 10^3 (1.0-4.0); LYMPHOCYTES % (AUTO) 31 % (12-44); MEAN CORPUSCULAR HGB CONC 33 G/DL (32-36); MEAN CORPUSCULAR VOLUME 90 FL (80-99); MEAN PLATELET VOLUME 9.9 FL (7.4-10.4); MONOCYTES # (AUTO) 0.8 X 10^3 (0.0-1.0); MONOCYTES % (AUTO) 8 % (0-12); NEUTROPHILS # (AUTO) 5.8 X 10^3 (1.8-7.8); NEUTROPHILS % (AUTO) 57 % (42-75); PLATELET COUNT 349 10^3/uL (130-400); RED CELL DISTRIBUTION WIDTH 13.4 % (10.0-14.5)
[2020-01-29 13:53] LABS: ALANINE AMINOTRANSFERASE 25 U/L (0-55); ALKALINE PHOSPHATASE 71 U/L (40-136); BILIRUBIN,TOTAL 0.2 MG/DL (0.1-1.0); BUN/CREATININE RATIO 12; CALCIUM 8.8 MG/DL (8.5-10.1); CARBON DIOXIDE 23 MMOL/L (21-32); CHLORIDE 104 MMOL/L (98-107); CREATININE SERUM 0.52 MG/DL (0.60-1.30); GFR ESTIMATED > 60; GLUCOSE 103 MG/DL (70-105); POTASSIUM 3.7 MMOL/L (3.6-5.0); SODIUM 137 MMOL/L (135-145); TOTAL PROTEIN 7.1 GM/DL (6.4-8.2)
[2020-01-29 14:35] VITALS: BP 130/82
== END 2020-01-29 14:34 | disposition home or self-care (01) ==
LOC: EDUNIT# 12:13 → ER FS 12:15
DX: J06.9 Acute upper respiratory infection, unspecified (principal); F41.9 Anxiety disorder, unspecified; F32.9 Major depressive disorder, single episode, unspecified
CPT/HCPCS: 36415; 80053; 85025; 87430; 87804

== ENCOUNTER 2020-03-15 11:22 | Emergency (ER) | payer SELFPAY ==
[~2020-03-15] VITALS: Ht 162.5 cm; Wt 90.3 kg
--- NOTE | 2020-03-15 11:42 | ED Headache ---
General Chief Complaint: Head/Cervical Problems Stated Complaint: HEAD PAIN Source: patient History of Present Illness Date Seen by Provider: March 15, 2020 Time Seen by Provider: 11:37 Initial Comments Headache for 2-3 days, not resolving. Hx of migraines w similar pattern. No change of severity or character to previous. Gets migraines a few times per yea r. Associated N/V and photophobia. No numbness, weakness. Location: frontal, temporal Allergies and Home Medications Allergies Coded Allergies: No Known Drug Allergies (Verified , 02/20/19) Home Medications Azithromycin 250 Mg Tablet, 250 MG PO DAILY Prescribed by: EMILIE STOREY on 07/03/19 2220 Azithromycin 250 Mg Tablet, 250 MG PO UD TAKE 2 TABLETS TODAY, THEN TAKE 1 TABLET DAILY FOR 4 MORE DAYS Prescribed by: GANGA VELEZ MD on 11/04/19 1707 Cephalexin 500 Mg Capsule, 500 MG PO TID Prescribed by: AMALIA ROBERSON on 06/02/1942 Cyclobenzaprine HCl 10 Mg Tablet, 10 MG PO Q8H PRN for SPASMS Prescribed by: IVAN KAHN on 02/20/191758 Hydrocodone Bit/Acetaminophen 1 Tab Tab, 1 EACH PO Q8H PRN for PAIN-MODERATE Prescribed by: DONY HERNANDEZ on 06/05/19 1531 Hydrocodone/Acetaminophen 1 Each Tablet, 1 TAB PO Q4-6HR Prescribed by: AMALIA ROBERSON on [birth year]02[birth year]1941 Naproxen 500 Mg Tablet, 500 MG PO BID Prescribed by: IVAN KAHN on 02/20/191758 Sulfamethoxazole/Trimethoprim 1 Each Tablet, 1 EACH PO BID Prescribed by: AMALIA ROBERSON on [birth year]02[birth year]1941 Patient Home Medication List Home Medication List Reviewed: Yes Review of Systems Review of Systems Constitutional: see HPI; No dizziness, No fever; malaise; No weakness Eyes: See HPI; Denies Inflammation, Denies Pain; Photophobia Ears, Nose, Mouth, Throat: no symptoms reported Respiratory: no symptoms reported Cardiovascular: no symptoms reported Gastrointestinal: No abdominal pain, No loss of appetite; nausea, vomiting Musculoskeletal: No back pain, No neck pain Psychiatric/Neurological: Headache; Denies Numbness, Denies Paresthesia, Denies Pre-Existing Deficit, Denies Tingling, Denies Weakness Past Tjyqfya-Fdjilz-Ntyfko Hx Past Med/Social Hx: Reviewed Nursing Past Med/Soc Hx Patient Social History Alcohol Use: Denies Use Recreational Drug Use: Yes Drug of Choice: Marijuana Smoking Status: Current Everyday Smoker Type Used: Cigarettes 2nd Hand Smoke Exposure: No Recent Foreign Travel: No Contact w/Someone Who Travel: No Recent Hopitalizations: No Physical Abuse: No Sexual Abuse: No Mistreated: No Fear: No Immunizations Up To Date Tetanus Booster (TDap): Less than 5yrs PED Vaccines UTD: Yes Seasonal Allergies Seasonal Allergies: No Past Medical History Surgeries: Yes Abdominal, Section, Gallbladder Respiratory: No Currently Using CPAP: No Currently Using BIPAP: No Cardiac: No Neurological: Yes Headaches /Migraines 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 Disorders: No 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: No Gastrointestinal: Yes Diverticulosis Musculoskeletal: No Endocrine: No HEENT: No Loss of Vision: Denies Hearing Impairment: Denies Cancer: No Psychosocial: No Anxiety, Depression Integumentary: No Blood Disorders: No Adverse Reaction/Blood Tranf: No Family Medical History Arthritis 19 MOTHER GRANDMA-MATERAL Colon cancer GRANDP-MATERANL Completed stroke 19 FATHER Congenital disease 19 FATHER Congenital heart disease 19 FATHER Diabetes mellitus 19 FATHER GRANDMA-MATERAL Hypercholesterolemia Myocardial infarction 19 FATHER GRANDP-MATERANL Heart Disease, Cancer, Diabetes Physical Exam Vital Signs Vital Signs - First Documented 03/15/20 11:32 Temp 37.1 Pulse 91 Resp 14 B/P (MAP) 141/93 (109) Pulse Ox 99 O2 Delivery Room Air Capillary Refill : Height, Weight, BMI Height: 5'5.00" Weight: 196lbs. 0.0oz. 88.288658di; 35.00 BMI Method:Stated General Appearance: WD/WN, no apparent distress HEENT: PERRL/EOMI, normal ENT inspection Neck: non-tender, supple Crainal Nerves: normal hearing, normal speech, PERRL; No facial asymmetry Coordination/Gait: normal finger to nose, normal gait Motor/Sensory: no motor deficit, no sensory deficit Skin: normal color, warm/dry Progress/Results/Core Measures Results/Orders My Orders Orders - ROVENSTINE,ANGELES L DO Metoclopramide Injection (Reglan Injecti (03/15/20 11:45) Ketorolac Injection (Toradol Injection) (03/15/20 11:45) Vital Signs/I&O 03/15/20 03/15/20 11:32 11:55 Temp 37.1 37.1 Pulse 91 91 Resp 14 14 B/P (MAP) 141/93 (109) 141/93 (109) Pulse Ox 99 99 O2 Delivery Room Air Departure Impression Primary Impression: Migraine Qualified Codes: G43.909 - Migraine, unspecified, not intractable, without status migrainosus Disposition: HOME, SELF-CARE Condition: Improved Departure-Patient Inst. Referrals: NO,LOCAL PHYSICIAN (PCP/Family) Primary Care Physician Patient Instructions: Migraine Headache (DC) Add. Discharge Instructions: Follow-up with your Primary Care Doctor in a few days if not improving, ER sooner if worse. All discharge instructions reviewed with patient and/or family. Voiced understanding. ANGELES CONTRERAS DO March 15, 2020 11:42
[2020-03-15] MEDS ORDERED: METOCLOPRAMIDE INJ 10 MG/2 ML (REGLAN) IM ONE (11:45)
[2020-03-15] MEDS ORDERED: KETOROLAC 60 MG/2 ML VIAL IM ONE (11:45)
[2020-03-15 11:55] VITALS: BP 141/93
--- OUTSIDE RECORDS SUMMARY | 2020-03-15 14:22 | XMS REPORT | Continuity of Care Document ---
Author Organization Unknown Address Unknown Phone Unavailable Allergies Active Description Code Type Severity Reaction Onset Reported/Identified Relationship to Patient Clinical Status Yes No Known Drug Allergies [id number] Drug Allergy Unknown N/A 02/20/2019 Medications There [...] ISCHEM HEART DIS AND OTH DI 02/20/2019 IAVN KAHN MD Ot Z87.19 PERSONAL HISTORY OF [...] PERSONAL HISTORY OF OTHER DISEASES OF 09/15/2019 CEHN BLACKBURN MD Ot F32. 9 MAJOR DEPRESSIVE [...] OF ISCHEM HEART DIS AND OTH DI 11/04/2019 ROSIE LAWRENCE, GANGA Lee Ot F32. 9 MAJOR DEPRESSIVE DISORDER, SINGLE EPISOD 11/04/2019 ROSIE LAWRENCE, GANGA Lee Ot F41. 9 ANXIETY DISORDER, UNSPECIFIED 11/04/2019 ROSIE LAWRENCE, GANGA Lee Ot G43.909 MIGRAINE, UNSP, NOT INTRACTABLE, WITHOUT 11/04/2019 ROSIE LAWRENCE, GANGA Lee Ot J06. 9 ACUTE UPPER RESPIRATORY INFECTION, UNSPE 11/04/2019 ROSIE LAWRENCE, GANGA Lee Ot R06. 02 SHORTNESS OF BREATH 11/04/2019 ROSIE LAWRENCE, GANGA Lee Ot Z80. 0 FAMILY HISTORY OF MALIGNANT NEOPLASM OF 11/04/2019 ROSIE LAWRENCE, GANGA Lee Ot Z82. 49 FAMILY HX OF ISCHEM HEART DIS AND OTH DI 11/09/2019 ROSIE LAWRENCE, GANGA Lee Ot F32. 9 MAJOR DEPRESSIVE DISORDER, SINGLE EPISOD 11/09/2019 ROSIE LAWRENCE, GANGA Lee Ot F41. 9 ANXIETY DISORDER, UNSPECIFIED 11/09/2019 ROSIE LAWRENCE, GANGA Lee Ot G43.909 MIGRAINE, UNSP, NOT INTRACTABLE, WITHOUT 11/09/2019 ROSIE LAWRENCE, GANGA Lee Ot J06. 9 ACUTE UPPER RESPIRATORY INFECTION, UNSPE 11/09/2019 ROSIE LAWRENCE, GANGA Lee Ot R06. 02 SHORTNESS OF BREATH 11/09/2019 RSOIE LAWRENCE, GANGA Lee Ot Z80. 0 FAMILY [...] MIGRAINE, UNSP, NOT INTRACTABLE, WITHOUT 11/10/2019 ROSIE LAWRENCE, GANGA Lee Ot J06. 9 ACUTE UPPER RESPIRATORY INFECTION, UNSPE 11/10/2019 ROSIE LAWRENCE, GANGA Lee Ot R06. 02 SHORTNESS OF BREATH 11/10/2019 ROSIE LAWRENCE, GANGA Jesus Ot Z80. 0 FAMILY HISTORY OF MALIGNANT NEOPLASM OF 11/10/2019 ROSIE LAWRENCE, GANGA Jesus Ot Z82. 49 FAMILY HX OF ISCHEM HEART DIS AND OTH DI 12/20/2019 RALEIGH LAWRENCE, EMILIE E Ot R07.8 9 OTHER CHEST PAIN 12/20/2019 RALEIGH LAWRENCE, EMILIE E Ot Z80.0 FAMILY HISTORY OF MALIGNANT NEOPLASM OF 12/20/2019 RALEIGH LAWRENCE, EMILIE E Ot Z82.4 9 FAMILY HX OF ISCHEM HEART DIS AND OTH DI 12/25/2019 RALEIGH LAWRENCE, EMILIE E Ot R07.8 9 OTHER CHEST PAIN 12/25/2019 RALEIGH LAWRENCE, EMILIE E Ot Z80.0 FAMILY HISTORY OF MALIGNANT NEOPLASM OF 12/25/2019 RALEIGH LAWRENCE, EMILIE E Ot Z82.4 9 FAMILY HX OF ISCHEM HEART DIS AND OTH DI 12/29/2019 RALEIGH LAWRENCE, EMILIE E Ot R07.8 9 OTHER CHEST PAIN 12/29/2019 RALEIGH LAWRENCE, EMILIE E Ot Z80.0 FAMILY HISTORY OF MALIGNANT NEOPLASM OF 12/29/2019 RALEIGH LAWRENCE, EMILIE E Ot Z82.4 9 FAMILY HX OF ISCHEM HEART DIS AND OTH DI 02/04/2020 JILL DO, MAKI Anderson Ot F32.9 MAJOR DEPRESSIVE DISORDER, SINGLE EPISOD 02/04/2020 JILL MAKI MOREAU Ot F41.9 ANXIETY DISORDER, UNSPECIFIED 02/04/2020 JILL MAKI MOREAU Ot J06.9 ACUTE UPPER RESPIRATORY INFECTION, UNSPE [facility] COU[facility] Procedures There is no data. Results Test [...] olume) < ng/mL <0.30 Myoglobin, serum - 08/14/18 21:40 Myoglobin, serum 36.5 ng/mL 10.0-92.0 Influenza virus A and B antigen detectio n - 08/14/18 22:15 FLU RESULT NEGATIVE FOR INFLUENZA A AND B ANTIGENS BY IA [facility] Complete blood count (CBC) with automate [...] 15:10 Bacteria identification in wound by culture [id number] NRG FREE TEXT EXTERNAL ACTINOMYCETES TURICENSIS [...] 12/20/19 07:10 PROBNP FS 40.3 pg/mL <75.0 Streptococcus pyogenes antigen detection - 01/29/20 12:50 Streptococcus pyogenes antigen detection NEGATIVE NEGATIVE Influenza virus A and B antigen detectio n - 01/29/20 12:50 FLU RESULT NEGATIVE FOR INFLUENZA A AND B ANTIGENS BY IA NR Bacterial throat culture - 01/29/20 12:5 0 Bacterial throat culture [id number] NR FREE TEXT EXTERNAL PLUS NORMAL MARCY NR G QUANTITY OF GROWTH Moderate Growth NRG Complete blood count (CBC) with automate d white blood cell (WBC) differential - 01/29/20 13:00 Blood leukocytes automated count (number/volume) 10.3 10*3/uL 4.3-11.0 Blood erythrocytes automated count (number/volume) 4.54 10*6/uL 4.35-5.85 Venous blood hemoglobin measurement (mass/volume) 13.7 g/dL 11.5-16.0 Blood hematocrit (volume fraction) 41 % 35-52 Automated erythrocyte mean corpuscular volume 90 [ foz_us] 80-99 Automated erythrocyte mean corpuscular h emoglobin (mass per erythrocyte) 30 pg 25-34 Automated erythrocyte mean corpuscular h emoglobin concentration measurement (mass/volume) 33 g/dL 32-36 Automated erythrocyte distribution width ratio 13. 4 % 10.0- 14.5 Automated blood platelet count (count/volume) 349 10*3/uL 130-400 Automated blood platelet mean volume measurement 9.9 [foz_us] 7.4-10.4 Automated blood neutrophils/100 leukocytes 57 % 42-75 Automated blood lymphocytes/100 leukocytes 31 % 12-44 Blood monocytes/100 leukocytes 8 % 0-12 Automated blood eosinophils/100 leukocytes 4 % 0-10 Automated blood basophils/100 leukocytes 1 % 0-10 Blood neutrophils automated count (number/volume) 5.8 10*3 1.8-7.8 Blood lymphocytes automated count (number/volume) 3.2 10*3 1.0-4.0 Blood monocytes automated count (number/volume) 0. 8 10*3 0.0-1.0 Automated eosinophil count 0.4 10*3/uL 0 .0-0.3 Automated blood basophil count (count/volume) 0.1 10*3/uL 0.0-0.1 Comprehensive metabolic panel - 01/29/20 13:00 Serum or plasma sodium measurement (moles/volume) 137 mmol/L 135-145 Serum or plasma potassium measurement (moles/volume) 3.7 mmol/L 3.6-5.0 Serum or plasma chloride measurement (moles/volume) 104 mmol/L 98-107 Carbon dioxide 23 mmol/L 21-32 Serum or plasma anion gap determination (moles/volume) 10 mmol/L 5-14 Serum or plasma urea nitrogen measurement (mass/volume ) 6 mg/dL 7-18 Serum or plasma creatinine measurement (mass/volume) 0.52 mg/dL 0.60-1.30 Serum or plasma urea nitrogen/creatinine mass ratio 12 NRG Serum or plasma creatinine measurement w ith calculation of estimated glomerular filtration rate > NRG Serum or plasma glucose measurement (mass/volume) 103 mg/dL 70-105 Serum or plasma calcium measurement (mass/volume) 8.8 mg/dL 8.5-10.1 Serum or plasma total bilirubin measurement (mass/volu me) 0.2 mg/dL 0.1-1.0 Serum or plasma alkaline phosphatase deborah surement (enzymatic activity/volume) 71 U/L 40-136 Serum or plasma aspartate aminotransfera se measurement (enzymatic activity/volume) 16 U/L 5-34 Serum or plasma alanine aminotransferase measurement (enzymatic activity/volume) 25 U/L 0-55 Serum or plasma protein measurement (mass/volume) 7.1 g/dL 6.4-8.2 Serum or plasma albumin measurement (mass/volume) 4.0 g/dL 3.2-4.5 CALCIUM CORRECTED 8.8 mg/dL 8.5-10.1 Encounters ACCT No. Visit Date/Time Discharge Status Pt. Type Provider Facility Loc./Unit Complaint [id number] 11/21/2019 13:30:00 11/21/2019 23:59:5 9 CLS Outpatient ROBERT MONTALVO LAC CHCMARLINE BISHOP [facility] [id number] 07/07/2019 11:50:00 Document Registration [id number] 01/29/2020 12:15:00 14:34:00 DIS Outpatient MAKI MELCHOR DO [facility] ER FS FEVER/COUGH [id number] 12/20/2019 06:57:00 09:09:00 DIS Emergency EMILIE STOREY MD [facility] ER FS CHEST PAIN, SOB [id number] 11/04/2019 16:02:00 17:20:00 DIS Emergency ROSIE LAWRENCE, GANGA Lee [facility] ER FS CONGESTION,SOB [id number] 09/15/2019 19:41:00 20:22:00 DIS Emergency CHEN BLACKBURN MD [facility] ER FS L FOOT PAIN [id number] 07/03/2019 19:24:00 22:27:00 DIS Outpatient EMILIE STOREY MD [facility] ER FS NAUSEA, FEVER, CHILLS, BODY ACHE [id number] 06/05/2019 14:34:00 15:47:00 DIS Outpatient DONY HERNANDEZ DO [facility] ER FS VAGINAL ABSCESS [id number] 06/01/2019 23:19:00 00:58:00 DIS Outpatient DA HOLLAND DO [facility] ER FS BOIL ON VAGINAL AREA [id number] 04/05/2019 15:26:00 16:21:00 DIS Emergency UMU LAWRENCE, JACOB Paz [facility] ER FS MIGRAINE [id number] 02/20/2019 16:57:00 18:12:00 DIS Emergency FEMI LAWRENCE, IVAN siegel [facility] ER FS LOW BACK PAIN [id number] 02/16/2019 20:09:00 20:56:00 DIS Outpatient DIANNE PAPPAS DO [facility] ER FS MIGRAINE [id number] 01/16/2019 07:52:00 019 14:00:00 DIS Inpatient LEVAR NICHOLAS V [facility] 4TH LOWER ABDOMINAL PAIN [id number] 12/18/2018 19:32:00 019 21:38:00 DIS Emergency SHANELL HANLEY APRN [facility] ER VOMITTING BLOOD [id number] 08/14/2018 21:08:00 018 00:57:00 DIS Emergency ELI LAWRENCE, ELVIRA Mckoy [facility] ER CP [id number] 10/24/2017 21:17:00 017 22:35:00 DIS Emergency CAROL PLASENCIA DO a [facility] ER VAG PAIN W BLEEDING [id number] 02/12/2016 10:27:00 016 15:30:00 DIS Outpatient CAMRYN CORONA MD [facility] ABD PAIN,N/V [id number] 02/11/2016 11:17:00 016 13:54:00 DIS Outpatient CAMRYN CORONA MD [facility] PREOP ABD PAIN,N/V [id number] 02/09/2016 11:09:00 Document Registration [id number] 02/07/2016 16:24:[address] Inpatient YOON MAHER DO [facility] 4TH HYPOLKALEMIA,NAUSEA,VOMITING ,ABD PAIN
== END 2020-03-15 11:55 ==
LOC: EDUNIT# 11:22 → ER FS 11:25
DX: G43.909 Migraine, unspecified, not intractable, without status migrainosus (principal); F17.210 Nicotine dependence, cigarettes, uncomplicated; Z80.0 Family history of malignant neoplasm of digestive organs; Z82.49 Family history of ischemic heart disease and other diseases of the circulatory system
CPT/HCPCS: 96372; 99284

== ENCOUNTER 2020-04-29 16:24 | Emergency (ER) | payer SELFPAY ==
[~2020-04-29] VITALS: Ht 160 cm; Wt 85.9 kg
[2020-04-29 16:35] VITALS: BP 127/92
[2020-04-29] MEDS ORDERED: KETOROLAC 30 MG/ML VIAL IVP ONE (17:15)
[2020-04-29] MEDS ORDERED: diphenhydrAMINE 50 MG/ML INJ (BENADRYL) IVP ONE (17:15)
[2020-04-29] MEDS ORDERED: ONDANSETRON 4 MG/2 ML (SDV) Z0FRAN IVP ONE (17:15)
--- NOTE | 2020-04-29 17:17 | Diagnostic Imaging Report ---
PROCEDURE: CT head without contrast. TECHNIQUE: Multiple contiguous axial images were obtained through the brain without the use of intravenous contrast. Auto Exposure Controls were utilized during the CT exam to meet ALARA standards for radiation dose reduction. INDICATION: Chronic migraines, gait abnormalities, imbalance. COMPARISON: None. FINDINGS: Ventricles are normal in size, shape, and position. There is no midline shift or mass effect. There is no hemorrhage or evidence of acute ischemia. No extra-axial fluid collection is identified. The bony calvarium, paranasal sinuses, and mastoids are clear. IMPRESSION: Negative CT head. Dictated by: Dictated on workstation # [id number]
--- NOTE | 2020-04-29 18:13 | ED Headache ---
General Chief Complaint: Neuro-Stroke Like Symptoms Stated Complaint: MIGRAINE,NUMBNESS IN FACE AND LIPS Nursing Triage Note: Patient states she has had "balance issues" for 1 week. States she has chronic migraines. Patient states her current migraine started yesterday, this morning at 1100 she began experiencing numbness to the left side of her face. Nursing Sepsis Screen: No Definite Risk History of Present Illness Date Seen by Provider: Apr 29, 2020 Time Seen by Provider: 17:00 Initial Comments Patient mainly complains of central posterior skull headache mild facial numbness has history of migraines some nausea and vomiting quite typical of her migraines Allergies and Home Medications Allergies Coded Allergies: No Known Drug Allergies (Verified , 02/20/19) Home Medications Azithromycin 250 Mg Tablet, 250 MG PO DAILY Prescribed by: EMILIE STOREY on 07/03/192219 Azithromycin 250 Mg Tablet, 250 MG PO UD TAKE 2 TABLETS TODAY, THEN TAKE 1 TABLET DAILY FOR 4 MORE DAYS Prescribed by: GANGA VELEZ MD on 11/04/19 1707 Cephalexin 500 Mg Capsule, 500 MG PO TID Prescribed by: AMALIA ROBERSON on [birth year]1941 Cyclobenzaprine HCl 10 Mg Tablet, 10 MG PO Q8H PRN for SPASMS Prescribed by: IVAN KAHN on 02/20/19 175 Hydrocodone Bit/Acetaminophen 1 Tab Tab, 1 EACH PO Q8H PRN for PAIN-MODERATE Prescribed by: DONY HERNANDEZ on 06/05/19 153 Hydrocodone/Acetaminophen 1 Each Tablet, 1 TAB PO Q4-6HR Prescribed by: AMALIA ROBERSON on 06/02/1942 Naproxen 500 Mg Tablet, 500 MG PO BID Prescribed by: IVAN KAHN on 02/20/191758 Sulfamethoxazole/Trimethoprim 1 Each Tablet, 1 EACH PO BID Prescribed by: AMALIA ROBERSON on [birth year]02/1942 Patient Home Medication List Home Medication List Reviewed: Yes Review of Systems Review of Systems Constitutional: No fever; other (headache) Eyes: No Symptoms Reported Ears, Nose, Mouth, Throat: no symptoms reported Respiratory: no symptoms reported Cardiovascular: no symptoms reported Gastrointestinal: nausea, vomiting 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: no symptoms reported Past Bjzkdja-Toythx-Jfeouj Hx Patient Social History Alcohol Use: Denies Use Recreational Drug Use: Yes Drug of Choice: Marijuana Smoking Status: Current Everyday Smoker Type Used: Cigarettes 2nd Hand Smoke Exposure: No Recent Foreign Travel: No Contact w/Someone Who Travel: No Recent Infectious Disease Expo: No Recent Hopitalizations: No Physical Abuse: No Sexual Abuse: No Mistreated: No Fear: No Immunizations Up To Date Tetanus Booster (TDap): Less than 5yrs PED Vaccines UTD: Yes Seasonal Allergies Seasonal Allergies: No Past Medical History Surgeries: Yes Abdominal, Section, Gallbladder Respiratory: No Currently Using CPAP: No Currently Using BIPAP: No Cardiac: No Neurological: Yes Headaches /Migraines 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 Disorders: No 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: No Gastrointestinal: Yes Diverticulosis Musculoskeletal: No Endocrine: No HEENT: No Loss of Vision: Denies Hearing Impairment: Denies Cancer: No Psychosocial: No Anxiety, Depression Integumentary: No Blood Disorders: No Adverse Reaction/Blood Tranf: No Family Medical History Arthritis 19 MOTHER GRANDMA-MATERAL Colon cancer GRANDP-MATERANL Completed stroke 19 FATHER Congenital disease 19 FATHER Congenital heart disease 19 FATHER Diabetes mellitus 19 FATHER GRANDMA-MATERAL Hypercholesterolemia Myocardial infarction 19 FATHER GRANDP-MATERANL Heart Disease, Cancer, Diabetes Physical Exam Vital Signs Vital Signs - First Documented 04/29/20 16:30 Temp 36.2 Pulse 94 Resp 18 B/P (MAP) 127/92 (104) Pulse Ox 100 O2 Delivery Room Air Capillary Refill : Less Than 3 Seconds Height, Weight, BMI Height: 5'5.00" Weight: 196lbs. 0.0oz. 88.364330he; 33.00 BMI Method:Stated General Appearance: mild distress HEENT: PERRL/EOMI, TMs normal, pharynx normal, other (cranial nerves intact grimace symmetric) Neck: supple Cardiovascular: normal peripheral pulses Respiratory: lungs clear Gastrointestinal: normal bowel sounds, non tender, soft Motor/Sensory: no motor deficit, no sensory deficit Progress/Results/Core Measures Results/Orders My Orders Orders - LAKIA LAZO MD Ct Head Wo (04/29/20 16:39) Iv Heplock-Insert (Order) (04/29/20 17:08) Ketorolac Injection (Toradol Injection) (04/29/20 17:15) Ondansetron Injection (Zofran Injectio (04/29/20 17:15) Diphenhydramine Injection (Benadryl Inje (04/29/20 17:15) Medications Given in ED Current Medications Medications Dose Ordered Sig/Marnie Route Start Time Stop Time Status Last Admin Dose Admin Diphenhydramine HCl 25 mg ONCE ONCE IVP 04/29/20 17:15 04/29/20 17:16 DC 04/29/20 17:52 25 MG Ketorolac Tromethamine 30 mg ONCE ONCE IVP 04/29/20 17:15 04/29/20 17:16 DC 04/29/20 17:52 30 MG Ondansetron HCl 4 mg ONCE ONCE IVP 04/29/20 17:15 04/29/20 17:16 DC 04/29/20 17:52 4 MG Vital Signs/I&O 04/29/20 16:30 Temp 36.2 Pulse 94 Resp 18 B/P (MAP) 127/92 (104) Pulse Ox 100 O2 Delivery Room Air Blood Pressure Mean: 104 Progress Progress Note : Progress Note CT head is normal and patient reports marked improvement in symptoms with IV "migraine cocktail" Departure Impression Primary Impression: Migraine Qualified Codes: G43.909 - Migraine, unspecified, not intractable, without status migrainosus Disposition: HOME, SELF-CARE Condition: Improved Departure-Patient Inst. Decision time for Depature: 18:12 Referrals: NO,LOCAL PHYSICIAN (PCP/Family) Primary Care Physician Patient Instructions: Migraine Headache (DC) LAKIA LAZO MD Apr 29, 2020 18:13
[2020-04-29 18:15] VITALS: BP 132/88
--- OUTSIDE RECORDS SUMMARY | 2020-04-29 19:34 | XMS REPORT | Continuity of Care Document ---
Author Organization Unknown Address Unknown Phone Unavailable Allergies Active Description Code Type Severity Reaction Onset Reported/Identified Relationship to Patient Clinical Status Yes No Known Drug Allergies [id number] Drug Allergy Unknown N/A 02/20/2019 Medications There [...] Z98.890 OTHER SPECIFIED POSTPROCEDURAL STATES 02/23/2019 IVAN KHAN MD, Ot F12.10 CANNABIS ABUSE, UNCOMPLICATED 02/23/2019 [...] RESPIRATORY INFECTION, UNSPE 11/10/2019 ROSIE LAWRENCE, GANGA Jesus Ot R06. 02 SHORTNESS OF BREATH 11/10/2019 [...] FAMILY HISTORY OF MALIGNANT NEOPLASM OF 12/25/2019 ENRAYMOND LAWRENCE, EMILIE E Ot Z82.4 9 FAMILY HX OF ISCHEM HEART DIS AND OTH DI 12/29/2019 RALEIGH LAWRENCE, EMILIE E Ot R07.8 9 OTHER CHEST PAIN 12/29/2019 RALEIGH LAWRENCE, EMILIE E Ot Z80.0 FAMILY HISTORY OF MALIGNANT NEOPLASM OF 12/29/2019 RALEIGH LAWRENCE, EMILIE E Ot Z82.4 9 FAMILY HX OF ISCHEM HEART DIS AND OTH DI 01/29/2020 JILL DO, MAKI Anderson Ot F32.9 MAJOR DEPRESSIVE DISORDER, SINGLE EPISOD 01/29/2020 [facility], MAKI Anderson Ot F41.9 ANXIETY DISORDER, UNSPECIFIED 01/29/2020 [facility] [place] , MAKI Anderson Ot J06.9 ACUTE UPPER RESPIRATORY INFECTION, UNSPE 01/29/2020 JILL , MAKI Anderson Ot R0 5 COUGH 02/04/2020 JILL , MAKI Anderson Ot F32.9 MAJOR DEPRESSIVE DISORDER, SINGLE EPISOD 02/04/2020 [facility] [place] DO, MAKI Anderson Ot F41.9 ANXIETY DISORDER, UNSPECIFIED 02/04/2020 JILL DO, MAKI Anderson Ot J06.9 ACUTE UPPER RESPIRATORY INFECTION, UNSPE 02/04/2020 JILL DOMAKI Ot R0 5 COUGH 03/15/2020 ROVENSTINE DO, ANGELES Rowe Ot F17.210 NICOTINE DEPENDENCE, CIGARETTES, UNCOMPL 03/15/2020 ROVENSTINE DO, ANGELES Rowe Ot G43.909 MIGRAINE, UNSP, NOT INTRACTABLE, WITHOUT 03/15/2020 ROVENSTINE DO, ANGELES Rowe Ot R51 HEADACHE 03/15/2020 ROVENSTINE DO, ANGELES Rowe Ot Z80.0 FAMILY HISTORY OF MALIGNANT NEOPLASM OF 03/15/2020 ROVENSTINE DO, ANGELES Rowe Ot Z82.49 FAMILY HX OF ISCHEM HEART DIS AND OTH DI 03/18/2020 ROVENSTINE DO, ANGELES Rowe Ot F17.210 NICOTINE DEPENDENCE, CIGARETTES, UNCOMPL 03/18/2020 ROVENSTINE DO, ANGELES Rowe Ot G43.909 MIGRAINE, UNSP, NOT INTRACTABLE, WITHOUT 03/18/2020 ROVENSTINE DO, ANGELES Rowe Ot R51 HEADACHE 03/18/2020 ROVENSTINE DO, ANGELES Rowe Ot Z80.0 FAMILY HISTORY OF MALIGNANT NEOPLASM OF 03/18/2020 ROVENSTINE DO, ANGELES Rowe Ot Z82.49 FAMILY HX OF ISCHEM HEART [...] A AND B ANTIGENS BY IA NR Complete blood count (CBC) with automate d [...] NO NRG Automated blood complete blood count ( mogram) panel - 01/16/19 03:25 Blood leukocytes [...] 15:10 Bacteria identification in wound by culture [id number] NRG FREE TEXT EXTERNAL ACTINOMYCETES TURICENSIS [...] INFLUENZA A AND B ANTIGENS BY IA [facility] Bacterial throat culture - 01/29/20 12:5 0 Bacterial throat culture [id number] [facility] FREE TEXT EXTERNAL PLUS NORMAL MARCY NR G QUANTITY OF GROWTH Moderate Growth NR Complete blood count (CBC) with automate d [...] Status Pt. Type Provider Facility Loc./Unit Complaint [id number] 04/15/2020 13:45:00 04/15/2020 23:59:5 9 [facility] Outpatient SELF, ERIC Foley [facility] [id number] 07/07/2019 11:50:00 Document Registration [id number] 04/29/2020 16:25:00 18:21:00 DIS Emergency CLIFTON LAWRENCE, LAKIA Jacinto [facility] ER FS MIGRAINE,NUMBNESS IN FA CE AND LIPS [id number] 03/15/2020 11:25:00 11:55:00 DIS Emergency ROVENSTINE DOANGELES [facility] ER FS HEAD PAIN [id number] 01/29/2020 12:15:00 14:34:00 DIS Emergency JILL DO, MAKI H [facility] ER FS FEVER/COUGH [id number] 12/20/2019 06:57:00 09:09:00 DIS Emergency RALEIGH LAWRENCE, EMILIE Bailey [facility] ER FS CHEST PAIN, SOB [id number] 11/04/2019 16:02:00 17:20:00 DIS Emergency ROSIE LAWRENCE, GANGA Lee [facility] ER FS CONGESTION,SOB [id number] 09/15/2019 19:41:00 20:22:00 DIS Emergency ALEXEY LAWRENCE, CHEN Siegel [facility] ER FS L FOOT PAIN [id number] 07/03/2019 19:24:00 22:27:00 DIS Outpatient RALEIGH LAWRENCE, EMILIE Bailey [facility] ER FS NAUSEA, FEVER, CHILLS, BODY ACHE [id number] 06/05/2019 14:34:00 15:47:00 DIS Outpatient DONY HERNANDEZ DO [facility] ER FS VAGINAL ABSCESS [id number] 06/01/2019 23:19:00 00:58:00 DIS Outpatient DA HOLLAND DO [facility] ER FS BOIL ON VAGINAL AREA [id number] 04/05/2019 15:26:00 16:21:00 DIS Emergency UMU LAWRENCE, JACOB Paz [facility] ER FS MIGRAINE [id number] 02/20/2019 16:57:00 18:12:00 DIS Emergency FEMI LAWRENCE, IVAN siegel [facility] ER FS LOW BACK PAIN [id number] 02/16/2019 20:09:00 20:56:00 DIS Outpatient DIANNE PAPPAS DO [facility] ER FS MIGRAINE [id number] 01/16/2019 07:52:00 14:00:00 DIS Inpatient NICHOLAS CRISTOBAL DO, V ia [facility] 4TH LOWER ABDOMINAL PAIN [id number] 12/18/2018 19:32:00 019 21:38:00 DIS Emergency SHANELL HANLEY APRN [facility] ER VOMITTING BLOOD [id number] 08/14/2018 21:08:00 018 00:57:00 DIS Emergency ELVIRA BENITEZ MD [facility] ER CP [id number] 10/24/2017 21:17:00 017 22:35:00 DIS Emergency CAROL PLASENCIA DO [facility] ER VAG PAIN W BLEEDING [id number] 02/12/2016 10:27:00 016 15:30:00 DIS Outpatient CAMRYN CORONA MD [facility] ABD PAIN,N/V [id number] 02/11/2016 11:17:00 016 13:54:00 DIS Outpatient CAMRYN CORONA MD [facility] PREOP ABD PAIN,N/V [id number] 02/09/2016 11:09:00 Document Registration [id number] 02/07/2016 16:24:[address] Inpatient YOON MAHER DO Via [facility] 4TH HYPOLKALEMIA,NAUSEA,VOMITING ,ABD PAIN
== END 2020-04-29 18:21 | disposition home or self-care (01) ==
LOC: EDUNIT# 16:24 → ER FS 16:25
DX: G43.909 Migraine, unspecified, not intractable, without status migrainosus (principal); F17.210 Nicotine dependence, cigarettes, uncomplicated; Z79.1 Long term (current) use of non-steroidal anti-inflammatories (NSAID); Z79.891 Long term (current) use of opiate analgesic; Z80.0 Family history of malignant neoplasm of digestive organs; Z82.49 Family history of ischemic heart disease and other diseases of the circulatory system
CPT/HCPCS: 70450; 96374; 96375

== ENCOUNTER 2020-05-27 14:26 | Emergency (ER) | payer SELFPAY ==
--- NOTE | 2020-05-27 14:35 | ED Chest Pain ---
General Chief Complaint: Cardiac/General Problems Stated Complaint: CHEST PAIN, HIGH BP Source: patient Exam Limitations: no limitations History of Present Illness Date Seen by Provider: May 27, 2020 Time Seen by Provider: 14:31 Initial Comments 34-year-old female presents with chest tightness/chest pain "not feeling well. Patient reports her blood pressure was 131/112 this morning. Her blood pressure now is 131/80. She denies any cough, she feels a little bit short of breath with her chest tightness. She denies any pain in her back or radiation of the pain. She denies any fevers chills. pt reports that she rates as does not smoke. She denies any nausea vomiting diarrhea or other systemic complaints. Patient reports that she started feeling bad yesterday and her chest tightness began today Allergies and Home Medications Allergies Coded Allergies: No Known Drug Allergies (Verified , 02/20/19) Home Medications Azithromycin 250 Mg Tablet, 250 MG PO DAILY Prescribed by: EMILIE STOREY on 07/03/190 Azithromycin 250 Mg Tablet, 250 MG PO UD TAKE 2 TABLETS TODAY, THEN TAKE 1 TABLET DAILY FOR 4 MORE DAYS Prescribed by: GANGA VELEZ MD on 11/04/19 1707 Cephalexin 500 Mg Capsule, 500 MG PO TID Prescribed by: AMALIA ROBERSON on [birth year]/02/1941 Cyclobenzaprine HCl 10 Mg Tablet, 10 MG PO Q8H PRN for SPASMS Prescribed by: IVAN KAHN on 02/20/191758 Hydrocodone Bit/Acetaminophen 1 Tab Tab, 1 EACH PO Q8H PRN for PAIN-MODERATE Prescribed by: DONY HERNANDEZ on 06/05/19 1531 Hydrocodone/Acetaminophen 1 Each Tablet, 1 TAB PO Q4-6HR Prescribed by: AMALIA ROBERSON on 06[birth year]02/1941 Naproxen 500 Mg Tablet, 500 MG PO BID Prescribed by: IVAN KAHN on 02/20/191758 Sulfamethoxazole/Trimethoprim 1 Each Tablet, 1 EACH PO BID Prescribed by: AMALIA ROBERSON on 06/02/1941 Patient Home Medication List Home Medication List Reviewed: Yes Review of Systems Review of Systems Constitutional: No chills, No fever; malaise EENTM: No Symptoms Reported Respiratory: See HPI; Denies Cough Cardiovascular: See HPI; Denies Irregular Heart Rate, Denies Lightheadedness, Denies Palpitations Gastrointestinal: Denies Abdominal Pain, Denies Diarrhea, Denies Nausea, Denies Vomiting Musculoskeletal: no symptoms reported Skin: no symptoms reported Psychiatric/Neurological: No Symptoms Reported Endocrine: No Symptoms Reported Past Hbpkhae-Skvvbk-Yeeloh Hx Past Med/Social Hx: Reviewed Nursing Past Med/Soc Hx Patient Social History Drug of Choice: Marijuana Type Used: Cigarettes 2nd Hand Smoke Exposure: No Recent Hopitalizations: No Immunizations Up To Date Tetanus Booster (TDap): Less than 5yrs PED Vaccines UTD: Yes Seasonal Allergies Seasonal Allergies: No Past Medical History Surgeries: Yes Abdominal, Section, Gallbladder Respiratory: No Currently Using CPAP: No Currently Using BIPAP: No Cardiac: No Neurological: Yes Headaches /Migraines 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 Disorders: No 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: No Gastrointestinal: Yes Diverticulosis Musculoskeletal: No Endocrine: No HEENT: No Loss of Vision: Denies Hearing Impairment: Denies Cancer: No Psychosocial: No Anxiety, Depression Integumentary: No Blood Disorders: No Adverse Reaction/Blood Tranf: No Family Medical History Arthritis 19 MOTHER GRANDMA-MATERAL Colon cancer GRANDP-MATERANL Completed stroke 19 FATHER Congenital disease 19 FATHER Congenital heart disease 19 FATHER Diabetes mellitus 19 FATHER GRANDMA-MATERAL Hypercholesterolemia Myocardial infarction 19 FATHER GRANDP-MATERANL Heart Disease, Cancer, Diabetes Physical Exam Vital Signs Vital Signs - First Documented 05/27/20 14:50 Temp 36.4 Pulse 98 Resp 16 B/P (MAP) 131/80 (97) Pulse Ox 99 Capillary Refill : Height, Weight, BMI Height: 5'5.00" Weight: 196lbs. 0.0oz. 88.543005sb; 33.00 BMI Method:Stated General Appearance: No Apparent Distress, WD/WN Neck: Full Range of Motion, Normal Inspection Respiratory: Chest Non Tender, Lungs Clear, Normal Breath Sounds Cardiovascular: Regular Rate, Rhythm, Normal Peripheral Pulses Gastrointestinal: Non Tender, Soft Neurologic/Psychiatric: Alert, Oriented x3, No Motor/Sensory Deficits, Normal Mood/Affect, arc trimmer II-XII Norm as Tested Skin: Normal Color, Warm/Dry Lymphatic: No Adenopathy Progress/Results/Core Measures Results/Orders Lab Results Laboratory Tests Test 05/27/20 14:48 Range/Units White Blood Count 10.2 4.3-11.0 10^3/uL Red Blood Count 4.42 4.35-5.85 10^6/uL Hemoglobin 13.2 11.5-16.0 G/DL Hematocrit 40 35-52 % Mean Corpuscular Volume 91 80-99 FL Mean Corpuscular Hemoglobin 30 25-34 PG Mean Corpuscular Hemoglobin Concent 33 32-36 G/DL Red Cell Distribution Width 13.2 10.0-14.5 % Platelet Count 342 130-400 10^3/uL Mean Platelet Volume 10.3 7.4-10.4 FL Neutrophils (%) (Auto) 58 42-75 % Lymphocytes (%) (Auto) 30 12-44 % Monocytes (%) (Auto) 7 0-12 % Eosinophils (%) (Auto) 4 0-10 % Basophils (%) (Auto) 1 0-10 % Neutrophils # (Auto) 6.0 1.8-7.8 X 10^3 Lymphocytes # (Auto) 3.1 1.0-4.0 X 10^3 Monocytes # (Auto) 0.7 0.0-1.0 X 10^3 Eosinophils # (Auto) 0.4 H 0.0-0.3 10^3/uL Basophils # (Auto) 0.1 0.0-0.1 10^3/uL Prothrombin Time 13.0 12.2-14.7 SEC INR Comment 1.0 0.8-1.4 Activated Partial Thromboplast Time 27 24-35 SEC Sodium Level 137 135-145 MMOL/L Potassium Level 4.2 3.6-5.0 MMOL/L Chloride Level 106 98-107 MMOL/L Carbon Dioxide Level 20 L 21-32 MMOL/L Anion Gap 11 5-14 MMOL/L Blood Urea Nitrogen 6 L 7-18 MG/DL Creatinine 0.59 L 0.60-1.30 MG/DL Estimat Glomerular Filtration Rate > 60 BUN/Creatinine Ratio 10 Glucose Level 89 70-105 MG/DL Calcium Level 9.0 8.5-10.1 MG/DL Corrected Calcium 9.0 8.5-10.1 MG/DL Magnesium Level 2.2 1.6-2.4 MG/DL Total Bilirubin 0.2 0.1-1.0 MG/DL Aspartate Amino Transf (AST/SGOT) 14 5-34 U/L Alanine Aminotransferase (ALT/SGPT) 20 0-55 U/L Alkaline Phosphatase 69 40-136 U/L Myoglobin 21.0 10.0-92.0 NG/ML Troponin I < 0.30 <0.30 NG/ML Total Protein 6.9 6.4-8.2 GM/DL Albumin 4.0 3.2-4.5 GM/DL Lipase 21 8-78 U/L My Orders Orders - HERNANDEZ,DONY L DO Cbc With Automated Diff (05/27/20 14:36) Magnesium (05/27/20 14:36) Ekg Tracing (05/27/20 14:36) Comprehensive Metabolic Panel (05/27/20 14:36) Myoglobin Serum (05/27/20 14:36) Protime With Inr (05/27/20 14:36) Partial Thromboplastin Time (05/27/20 14:36) Monitor-Rhythm Ecg Trace Only (05/27/20 14:36) Aspirin Chewable Tablet (Baby Aspirin Ch (05/27/20 14:45) Ed Iv/Invasive Line Start (05/27/20 14:36) Lipase (05/27/20 14:36) Troponin I Fs (05/27/20 14:36) Chest Pa/Lat (2 View) (05/27/20 14:36) Medications Given in ED Current Medications Medications Dose Ordered Sig/Marnie Route Start Time Stop Time Status Last Admin Dose Admin Aspirin 324 mg ONCE ONCE PO 05/27/20 14:45 05/27/20 14:46 DC 05/27/20 14:41 324 MG Vital Signs/I&O 05/27/20 05/27/20 14:50 15:34 Temp 36.4 Pulse 98 87 Resp 16 22 B/P (MAP) 131/80 (97) 103/66 Pulse Ox 99 100 Progress Progress Note : Time: 15:27 Progress Note Patient with negative EKG, negative troponin and negative chest x-ray and labs. Chart review shows that she's had similar symptoms on and off in the past. I discussed with her that I suspect she has some underlying chronic bronchitis/COPD changes. I recommend she follow-up with her primary care provider for further outpatient evaluation. This time no further treatment is indicated. Her oxygen saturations are 100% with her heart rate 88 and blood pressure in the 130s systolic over 80s diastolic. Patient stable and will be discharged home Initial ECG Impression Date: May 27, 2020 Initial ECG Impression Time: 14:33 Initial ECG Rhythm: Normal Sinus Initial ECG Intervals: Normal Initial ECG Impression: Normal Diagnostic Imaging Diagonstic Imaging: Xray Plain Films/CT/US/NM/MRI: chest Comments [facility] [employer] [facility] [place], [place] NAME: MARCUS PADILLA [facility] REC#: [id number] PT STATUS: REG ER : 1985 PHYSICIAN: DONY HERNANDEZ DO ADMIT DATE: 05/27/20/ER FS Draft Date of Exam:05/27/20 CHEST PA/LAT (2 VIEW) INDICATION: Chest pain and hypertension. TIME OF EXAM: 02:50 p.m. COMPARISON: Correlation is made with prior chest from 12/20/2019. FINDINGS: The heart size is normal. The pulmonary vascularity is unremarkable. The lungs are clear. No infiltrate, effusion or pneumothorax is detected. IMPRESSION: No acute cardiopulmonary process is detected. Departure Impression Primary Impression: Bronchitis Additional Impression: Tightness in chest Disposition: 01 HOME, SELF-CARE Condition: Stable Departure-Patient Inst. Referrals: ERIC CALDERON MD (PCP/Family) Primary Care Physician Patient Instructions: Chronic Bronchitis (DC), Acute Bronchitis, Adult (DC), Chest Pain That Is Not Caused by the Heart (DC) Add. Discharge Instructions: Emergency department focuses on treating and ruling out life-threatening diseases. Whenever possible, a diagnosis is given. However, most patients are given an impression based on their history, physical exam, and workup during your brief time in the ER. Information about probable diagnosis and other educational material has been provided. Please take the time to read and understand this information. It is very important that you follow up with a physician as discussed during the visit today. Failure to adhere to your follow-up instructions may lead to severe disability, injury, or so please make sure to keep your appointments or obtain one as requested. Please keep in mind the emergency department is not de signed to your primary care or "family doctor" and nonurgent issues are best evaluated by an outpatient physician All discharge instructions reviewed with patient and/or family. Voiced understanding. DONY HERNANDEZ DO May 27, 2020 14:35
[2020-05-27] MEDS ORDERED: ASPIRIN 81 MG CHEW (CHILDREN'S ASA) PO ONE (14:45)
[2020-05-27 14:55] LABS: HEMATOCRIT 40 % (35-52); HEMOGLOBIN 13.2 G/DL (11.5-16.0); MEAN CORPUSCULAR HEMOGLOBIN 30 PG (25-34); MEAN CORPUSCULAR HGB CONC 33 G/DL (32-36); MEAN CORPUSCULAR VOLUME 91 FL (80-99); WHITE BLOOD COUNT 10.2 10^3/uL (4.3-11.0)
[2020-05-27 14:56] LABS: BASOPHILS # (AUTO) 0.1 10^3/uL (0.0-0.1); BASOPHILS % (AUTO) 1 % (0-10); EOSINOPHILS # (AUTO) 0.4 10^3/uL (0.0-0.3); EOSINOPHILS % (AUTO) 4 % (0-10); LYMPHOCYTES # (AUTO) 3.1 X 10^3 (1.0-4.0); LYMPHOCYTES % (AUTO) 30 % (12-44); MEAN PLATELET VOLUME 10.3 FL (7.4-10.4); MONOCYTES # (AUTO) 0.7 X 10^3 (0.0-1.0); MONOCYTES % (AUTO) 7 % (0-12); NEUTROPHILS % (AUTO) 58 % (42-75); PLATELET COUNT 342 10^3/uL (130-400); RED CELL DISTRIBUTION WIDTH 13.2 % (10.0-14.5)
--- NOTE | 2020-05-27 14:58 | Diagnostic Imaging Report ---
INDICATION: Chest pain and hypertension. TIME OF EXAM: 02:50 p.m. COMPARISON: Correlation is made with prior chest from 12/20/2019. FINDINGS: The heart size is normal. The pulmonary vascularity is unremarkable. The lungs are clear. No infiltrate, effusion or pneumothorax is detected. IMPRESSION: No acute cardiopulmonary process is detected. Dictated by: Dictated on workstation # [id number]
[2020-05-27 15:15] LABS: BUN/CREATININE RATIO 10; CARBON DIOXIDE 20 MMOL/L (21-32); CHLORIDE 106 MMOL/L (98-107); CREATININE SERUM 0.59 MG/DL (0.60-1.30); GFR ESTIMATED > 60; GLUCOSE 89 MG/DL (70-105); POTASSIUM 4.2 MMOL/L (3.6-5.0); SODIUM 137 MMOL/L (135-145)
[2020-05-27 15:16] LABS: ALANINE AMINOTRANSFERASE 20 U/L (0-55); ALKALINE PHOSPHATASE 69 U/L (40-136); BILIRUBIN,TOTAL 0.2 MG/DL (0.1-1.0); LIPASE 21 U/L (8-78); MAGNESIUM 2.2 MG/DL (1.6-2.4); TOTAL PROTEIN 6.9 GM/DL (6.4-8.2)
[2020-05-27 15:34] VITALS: BP 103/66
--- OUTSIDE RECORDS SUMMARY | 2020-05-27 17:03 | XMS REPORT | Continuity of Care Document ---
Author Organization Unknown Address Unknown Phone Unavailable Allergies Active Description Code Type Severity Reaction Onset Reported/Identified Relationship to Patient Clinical Status Yes No Known Drug Allergies [id number] Drug Allergy Unknown N/A 02/20/2019 Medications There [...] F32.9 MAJOR DEPRESSIVE DISORDER, SINGLE EPISOD 01/29/2020 [facility], MAKI Anderson Ot F41.9 ANXIETY DISORDER, UNSPECIFIED 01/29/2020 [facility] , MAKI Anderson Ot J06.9 ACUTE UPPER RESPIRATORY INFECTION, UNSPE 01/29/2020 [facility] , MAKI Anderson Ot R0 5 COUGH 02/04/2020 JILL , MAKI Anderson Ot F32.9 MAJOR DEPRESSIVE DISORDER, SINGLE EPISOD 02/04/2020 [facility] DO, MAKI Anderson Ot F41.9 ANXIETY DISORDER, UNSPECIFIED [facility].9 ACUTE UPPER RESPIRATORY INFECTION, UNSPE 02/04/2020 [facility] DOMAKI Ot R0 5 COUGH 03/15/2020 [facility] DO, ANGELES Jae Ot F17.210 NICOTINE DEPENDENCE, CIGARETTES, UNCOMPL 03/15/2020 [facility] DO, ANGELES Rowe Ot G43.909 MIGRAINE, UNSP, NOT INTRACTABLE, WITHOUT 03/15/2020 [facility] DO, ANGELES L Ot R51 HEADACHE 03/15/2020 [facility] DO, ANGELES Rowe Ot Z80.0 FAMILY HISTORY OF MALIGNANT NEOPLASM OF 03/15/2020 [facility] DO, ANGELES Rowe Ot Z82.49 FAMILY HX OF ISCHEM HEART DIS AND OTH DI 03/18/2020 [facility] DO, ANGELES Rowe Ot F17.210 NICOTINE DEPENDENCE, CIGARETTES, UNCOMPL 03/18/2020 [facility] DO, ANGELES Jae Ot G43.909 MIGRAINE, UNSP, NOT INTRACTABLE, WITHOUT 03/18/2020 [facility] DO, ANGELES L Ot R51 HEADACHE 03/18/2020 [facility] DO, ANGELES Jae Ot Z80.0 FAMILY HISTORY OF MALIGNANT NEOPLASM OF 03/18/2020 [facility] DO, ANGELES Rowe Ot Z82.49 FAMILY HX OF ISCHEM HEART DIS AND OTH DI 05/02/2020 LAKIA LAZO MD, Ot F17.210 NICOTINE DEPENDENCE, CIGARETTES, UNCOMPL 05/02/2020 LAKIA LAZO MD Ot G43.909 MIGRAINE, UNSP, NOT INTRACTABLE, WITHOUT 05/02/2020 LAKIA LAZO MD Ot R51 HEADACHE 05/02/2020 LAKIA LAZO MD Ot Z79. 1 HALFWAY (CURRENT) USE OF NON-STEROIDAL 05/02/2020 LAKIA LAZO MD Ot Z79.891 MORTAR MAN (CURRENT) USE OF OPIATE ANALGE 05/02/2020 LAKIA LAZO MD Ot Z80. 0 FAMILY HISTORY OF MALIGNANT NEOPLASM OF 05/02/2020 LAKIA LAZO MD Ot Z82. 49 FAMILY HX OF [...] mg/dL 0.1-1.0 Serum or plasma alkaline phosphatase edborah surement (enzymatic activity/volume) 57 U/L 40-136 Serum [...] 15:10 Bacteria identification in wound by culture [id number] NRG FREE TEXT EXTERNAL ACTINOMYCETES TURICENSIS [...] A AND B ANTIGENS BY IA NRG Bacterial throat culture - 01/29/20 12:5 0 Bacterial throat culture [id number] NRG FREE TEXT EXTERNAL PLUS NORMAL MARCY NR [...] g/dL 3.2-4.5 CALCIUM CORRECTED 8.8 mg/dL 8.5-10.1 Complete blood count (CBC) with automate d white blood cell (WBC) differential - 05/27/20 14:48 Blood leukocytes automated count (number/volume) 10.2 10*3/uL 4.3-11.0 Blood erythrocytes automated count (number/volume) 4.42 10*6/uL 4.35-5.85 Venous blood hemoglobin measurement (mass/volume) 13.2 g/dL 11.5-16.0 Blood hematocrit (volume fraction) 40 [...] 130-400 Automated blood platelet mean volume measurement 10.3 [foz_us] 7.4-10.4 Automated blood neutrophils/100 leukocytes 58 % 42-75 Automated blood lymphocytes/100 leukocytes 30 % 12-44 Blood monocytes/100 leukocytes 7 % 0-12 Automated blood eosinophils/100 leukocytes 4 % 0-10 Automated blood basophils/100 leukocytes 1 % 0-10 Blood neutrophils automated count (number/volume) 6.0 10*3 1.8-7.8 Blood lymphocytes automated count (number/volume) 3.1 10*3 1.0-4.0 Blood monocytes automated count (number/volume) 0. 7 10*3 0.0-1.0 Automated eosinophil count 0.4 10*3/uL 0 .0-0.3 Automated blood basophil count (count/volume) 0.1 10*3/uL 0.0-0.1 PT panel in platelet poor plasma by coag ulation assay - 05/27/20 14:48 Prothrombin time (PT) in platelet poor plasma by coagu lation assay 13.0 s 12.2-14.7 INR in platelet poor plasma or blood by coagulation as say 1.0 0.8-1.4 Activated partial thromboplastin time (a PTT) in platelet poor plasma bycoagulation assay - 05/27/20 14:48 Activated partial thromboplastin time (a PTT) in platelet poor plasma bycoagulation assay 27 s 24-35 Comprehensive metabolic panel - 05/27/20 14:48 Serum or plasma sodium measurement (moles/volume) 137 mmol/L 135-145 Serum or plasma potassium measurement (moles/volume) 4.2 mmol/L 3.6-5.0 Serum or plasma chloride measurement (moles/volume) 106 mmol/L 98-107 Carbon dioxide 20 mmol/L 21-32 Serum or plasma anion gap determination (moles/volume) 11 mmol/L 5-14 Serum or plasma urea nitrogen measurement (mass/volume ) 6 mg/dL 7-18 Serum or plasma creatinine measurement (mass/volume) 0.59 mg/dL 0.60-1.30 Serum or plasma urea nitrogen/creatinine mass ratio 10 NRG Serum or plasma creatinine measurement w ith calculation of estimated glomerular filtration rate > NRG Serum or plasma glucose measurement (mass/volume) 89 mg/dL 70-105 Serum or plasma calcium measurement (mass/volume) 9.0 mg/dL 8.5-10.1 Serum or plasma total bilirubin measurement (mass/volu me) 0.2 mg/dL 0.1-1.0 Serum or plasma alkaline phosphatase deborah surement (enzymatic activity/volume) 69 U/L 40-136 Serum or plasma aspartate aminotransfera se measurement (enzymatic activity/volume) 14 U/L 5-34 Serum or plasma alanine aminotransferase measurement (enzymatic activity/volume) 20 U/L 0-55 Serum or plasma protein measurement (mass/volume) 6.9 g/dL 6.4-8.2 Serum or plasma albumin measurement (mass/volume) 4.0 g/dL 3.2-4.5 CALCIUM CORRECTED 9.0 mg/dL 8.5-10.1 Magnesium - 05/27/20 14:48 Magnesium 2.2 mg/dL 1.6-2.4 Myoglobin, serum - 05/27/20 14:48 Myoglobin, serum 21.0 ng/mL 10.0-92.0 Lipase - 05/27/20 14:48 Lipase 21 U/L 8-78 TROPONIN I FS - 05/27/20 14:48 TROPONIN I FS < 0.30 <0.30 Encounters ACCT No. Visit Date/Time Discharge Status Pt. Type Provider Facility Loc./Unit Complaint [id number] 04/15/2020 13:45:00 04/15/2020 23:59:5 9 CLS Outpatient SELF, ERIC Foley [facility] [id number] 07/07/2019 11:50:00 Document Registration [id number] 05/27/2020 14:27:00 15:37:00 DIS Emergency DONY HERNANDEZ DO Via [facility] ER FS CHEST PAIN, HIGH BP [id number] 04/29/2020 16:25:00 18:21:00 DIS Outpatient CLIFTON LAWRENCE, LAKIA Jacinto [facility] ER FS MIGRAINE,NUMBNESS IN FA CE AND LIPS [id number] 03/15/2020 11:25:00 11:55:00 DIS Emergency ROVENSTINE ANGELES MOREAU L [facility] ER FS HEAD PAIN [id number] 01/29/2020 12:15:00 14:34:00 DIS Emergency JILL MAKI MOREAU [facility] ER FS FEVER/COUGH [id number] 12/20/2019 06:57:00 09:09:00 DIS Emergency RALEIGH LAWRENCE, EMILIE Bailey [facility] ER FS CHEST PAIN, SOB [id number] 11/04/2019 16:02:00 17:20:00 DIS Emergency ROISE LAWRENCE, GANGA S [facility] ER FS CONGESTION,SOB [id number] 09/15/2019 19:41:00 20:22:00 DIS Emergency CHEN BLACKBURN MD Via [facility] ER FS L FOOT PAIN [id number] 07/03/2019 19:24:00 22:27:00 DIS Outpatient RALEIGH LAWRENCE, EMILIE Bailey [facility] ER FS NAUSEA, FEVER, CHILLS, BODY ACHE [id number] 06/05/2019 14:34:00 15:47:00 DIS Outpatient DONY HERNANDEZ DO [facility] ER FS VAGINAL ABSCESS [id number] 06/01/2019 23:19:00 00:58:00 DIS Outpatient DA HOLLAND DO [facility] ER FS BOIL ON VAGINAL AREA [id number] 04/05/2019 15:26:00 16:21:00 DIS Emergency JACOB ASNZ MD [facility] ER FS MIGRAINE [id number] 02/20/2019 16:57:00 18:12:00 DIS Emergency FEMI LAWRENCE, IVAN siegel [facility] ER FS LOW BACK PAIN [id number] 02/16/2019 20:09:00 20:56:00 DIS Outpatient DIANNE PAPPAS DO [facility] ER FS MIGRAINE [id number] 01/16/2019 07:52:00 14:00:00 DIS Inpatient NICHOLAS CRISTOBAL DO, V [facility] 4TH LOWER ABDOMINAL PAIN [id number] 12/18/2018 19:32:00 21:38:00 DIS Emergency SHANELL HANLEY APRN [facility] ER VOMITTING BLOOD [id number] 08/14/2018 21:08:00 00:57:00 DIS Emergency ELI LAWRENCE, ELVIRA Mckoy [facility] ER CP [id number] 10/24/2017 21:17:00 017 22:35:00 DIS Emergency CAROL PLASENCIA DO [facility] ER VAG PAIN W BLEEDING [id number] 02/12/2016 10:27:00 Pablo 15:30:00 DIS Outpatient CAMRYN CORONA MD Via [facility] SDC ABD PAIN,N/V [id number] 02/11/2016 11:17:00 Pablo 13:54:00 DIS Outpatient CAMRYN CORONA MD [facility] PREOP ABD PAIN,N/V [id number] 02/09/2016 11:09:00 Document Registration [id number] 02/07/2016 16:24:[address] Inpatient YOON MAHER DO Via [facility] 4TH HYPOLKALEMIA,NAUSEA,VOMITING ,ABD PAIN
== END 2020-05-27 15:37 | disposition home or self-care (01) ==
LOC: EDUNIT# 14:26 → ER FS 14:27
DX: J40 Bronchitis, not specified as acute or chronic (principal); R07.89 Other chest pain; K57.90 Diverticulosis of intestine, part unspecified, without perforation or abscess without bleeding; Z80.0 Family history of malignant neoplasm of digestive organs; Z82.49 Family history of ischemic heart disease and other diseases of the circulatory system
CPT/HCPCS: 36415; 71046; 80053; 83690; 83735; 83874; 84484; 85025; 85610; 85730; 93005; 93041

== ENCOUNTER 2020-06-20 10:50 | Emergency (ER) | payer SELFPAY ==
[~2020-06-20] VITALS: Ht 160 cm; Wt 86.4 kg
[2020-06-20] MEDS ORDERED: fentaNYL INJECTION 100 MCG/2 ML AMP IVP STA ×2 (11:09→12:26)
[2020-06-20] MEDS ORDERED: ONDANSETRON 4 MG/2 ML (SDV) Z0FRAN IVP STA ×2 (11:09→12:26)
[2020-06-20] MEDS ORDERED: NS IV 1000 ML 1,000 ML IV STA (11:09)
[2020-06-20] MEDS ORDERED: NS 100 ML (IVPB) BAG IV ONE (11:15)
[2020-06-20] MEDS ORDERED: CATHETER FLUSH 10 ML SYR IV PRN (11:15)
[2020-06-20] MEDS ORDERED: IOHEXOL 350 MG/ML 100 ML (OMNIPAQUE 350) VIAL IV ONE (11:15)
[2020-06-20] MEDS ORDERED: HOLD METFORMIN - RECEIVED CONTRAST 20 ML VIAL IV SCH (11:15)
--- NOTE | 2020-06-20 11:19 | ED GI ---
General Chief Complaint: Abdominal/GI Problems Stated Complaint: ABD SWELLING/PAIN Nursing Triage Note: Patient reports left lower abdominal quadrant, left groin pain for 2 days, also reports nausea and vomiting for 2 days. States she had a normal bowel movement today. States she feels bloated and believes her diverticulitis is flaring up. Sepsis Screen: No Definite Risk Source of Information: Patient History of Present Illness Date Seen by Provider: Jun 20, 2020 Time Seen by Provider: 10:52 Initial Comments 34-year-old female presenting with complaints of left-sided abdominal pain. She states that she has had pain with nausea and vomiting for the last 2 days. She also has had mucousy stools for the last 2 days. She feels this is similar to when she has had diverticulitis in the past. She denies any fevers but has chronic chills. She feels that she has not kept anything down for the last 2 days. Her pain is mostly in the left lower quadrant but she has some of the left upper quadrant as well. She denies any blood in her urine or stool. Pain is worse with movement and palpation and eating. Nothing seems to make the pain any better. Allergies and Home Medications Allergies Coded Allergies: No Known Drug Allergies (Verified , 02/20/19) Home Medications Azithromycin 250 Mg Tablet, 250 MG PO DAILY Prescribed by: EMILIE STOREY on 07/03/19 2220 Azithromycin 250 Mg Tablet, 250 MG PO UD TAKE 2 TABLETS TODAY, THEN TAKE 1 TABLET DAILY FOR 4 MORE DAYS Prescribed by: GANGA VELEZ MD on 11/04/19 1707 Cephalexin 500 Mg Capsule, 500 MG PO TID Prescribed by: AMALIA ROBERSON on 06/02/19 004 Cyclobenzaprine HCl 10 Mg Tablet, 10 MG PO Q8H PRN for SPASMS Prescribed by: IVAN KAHN on 02/20/19 1759 Hydrocodone Bit/Acetaminophen 1 Tab Tab, 1 EACH PO Q8H PRN for PAIN-MODERATE Prescribed by: DONY HERNANDEZ on 06/05/19 1531 Hydrocodone/Acetaminophen 1 Each Tablet, 1 TAB PO Q4-6HR Prescribed by: AMALIA ROBERSON on 06/02/19 0042 Hydrocodone/Acetaminophen 1 Each Tablet, 1 EACH PO Q8H PRN for PAIN-SEVERE (8- 10) Prescribed by: EMILIE STOREY on 06/20/20 1238 Metronidazole 500 Mg Tablet, 500 MG PO TID Prescribed by: EMILIE BOJORQUEZYART on 06/20/20 1237 Naproxen 500 Mg Tablet, 500 MG PO BID Prescribed by: IVAN KAHN on 02/20/19 175 Ondansetron 4 Mg Tab.rapdis, 4 MG PO Q6H PRN for NAUSEA/VOMITING Prescribed by: EMILIE BOJORQUEZYART on 06/20/20 1237 Sulfamethoxazole/Trimethoprim 1 Each Tablet, 1 EACH PO BID Prescribed by: AMALIA ROBERSON on 06/02/19 0042 Sulfamethoxazole/Trimethoprim 1 Each Tablet, 1 EACH PO BID Prescribed by: EMILIE BOJORQUEZYART on 06/20/20 1237 Patient Home Medication List Home Medication List Reviewed: Yes Review of Systems Review of Systems Constitutional: chills (chronic); No dizziness, No fever, No malaise EENTM: No Blurred Vision, No Ear Pain, No Mouth Swelling, No Nose Congestion, No Throat Pain, No Throat Swelling Respiratory: Denies Cough, Denies Shortness of Air Cardiovascular: Denies Chest Pain Gastrointestinal: See HPI 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: Denies Burning, Denies Frequency, Denies Pain Musculoskeletal: no symptoms reported Skin: no symptoms reported Psychiatric/Neurological: No Symptoms Reported Endocrine: No Symptoms Reported Hematologic/Lymphatic: No Symptoms Reported Past Dacmply-Ioirkv-Qbvstq Hx Past Med/Social Hx: Reviewed Nursing Past Med/Soc Hx Patient Social History Alcohol Use: Occasionally Uses Recreational Drug Use: No (denies 06/20/20) Drug of Choice: Marijuana Smoking Status: Current Everyday Smoker Type Used: Cigarettes 2nd Hand Smoke Exposure: No Recent Foreign Travel: No Contact w/Someone Who Travel: No Recent Infectious Disease Expo: No Recent Hopitalizations: No Physical Abuse: No Sexual Abuse: No Mistreated: No Fear: No Immunizations Up To Date Tetanus Booster (TDap): Less than 5yrs PED Vaccines UTD: Yes Seasonal Allergies Seasonal Allergies: No Past Medical History Surgeries: Yes Abdominal, Section, Gallbladder Respiratory: No Currently Using CPAP: No Currently Using BIPAP: No Cardiac: No Neurological: Yes Headaches /Migraines Last Menstrual Period: Jun 06, 2020 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 Disorders: No 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: No Gastrointestinal: Yes Diverticulosis Musculoskeletal: No Endocrine: No HEENT: No Loss of Vision: Denies Hearing Impairment: Denies Cancer: No Psychosocial: Yes Anxiety, Depression Integumentary: No Blood Disorders: No Adverse Reaction/Blood Tranf: No Family Medical History Arthritis 19 MOTHER GRANDMA-MATERAL Colon cancer GRANDP-MATERANL Completed stroke 19 FATHER Congenital disease 19 FATHER Congenital heart disease 19 FATHER Diabetes mellitus 19 FATHER GRANDMA-MATERAL Hypercholesterolemia Myocardial infarction 19 FATHER GRANDP-MATERANL Heart Disease, Cancer, Diabetes Physical Exam Vital Signs Vital Signs - First Documented 06/20/20 11:01 Temp 36.1 Pulse 86 Resp 16 B/P (MAP) 129/71 (90) Pulse Ox 98 O2 Delivery Room Air Capillary Refill : Less Than 3 Seconds Height/Weight/BMI Height: 5'5.00" Weight: 196lbs. 0.0oz. 88.652759sv; 33.00 BMI Method:Stated General Appearance: WD/WN, no apparent distress HEENT: PERRL/EOMI, pharynx normal Neck: non-tender, full range of motion, supple Respiratory: chest non-tender, lungs clear, normal breath sounds, no resp iratory distress, no accessory muscle use Cardiovascular: normal peripheral pulses, regular rate, rhythm Gastrointestinal: normal bowel sounds, soft, no pulsatile mass; No guarding, No rebound; tenderness (left-sided both left upper quadrant and left lower quadrant); No mass Rectal: deferred Extremities: normal range of motion, non-tender, normal inspection, no pedal edema, normal capillary refill Back: normal inspection, no CVA tenderness 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/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 as tested, no motor/sensory deficits, alert, oriented x 3 Skin: normal color, warm/dry Images 1 - Tender to palpation Focused Exam Lactate Level 06/20/20 11:00: Lactic Acid Level 1.09 Lactic Acid Level Laboratory Tests Test 06/20/20 11:00 Lactic Acid Level 1.09 MMOL/L (0.50-2.00) Progress/Results/Core Measures Results/Orders Lab Results Laboratory Tests Test 06/20/20 11:00 Range/Units White Blood Count 13.5 H 4.3-11.0 10^3/uL Red Blood Count 4.41 4.35-5.85 10^6/uL Hemoglobin 13.3 11.5-16.0 G/DL Hematocrit 41 35-52 % Mean Corpuscular Volume 92 80-99 FL Mean Corpuscular Hemoglobin 30 25-34 PG Mean Corpuscular Hemoglobin Concent 33 32-36 G/DL Red Cell Distribution Width 13.6 10.0-14.5 % Platelet Count 356 130-400 10^3/uL Mean Platelet Volume 10.4 7.4-10.4 FL Neutrophils (%) (Auto) 61 42-75 % Lymphocytes (%) (Auto) 29 12-44 % Monocytes (%) (Auto) 6 0-12 % Eosinophils (%) (Auto) 3 0-10 % Basophils (%) (Auto) 1 0-10 % Neutrophils # (Auto) 8.3 H 1.8-7.8 X 10^3 Lymphocytes # (Auto) 3.9 1.0-4.0 X 10^3 Monocytes # (Auto) 0.8 0.0-1.0 X 10^3 Eosinophils # (Auto) 0.4 H 0.0-0.3 10^3/uL Basophils # (Auto) 0.1 0.0-0.1 10^3/uL Urine Color YELLOW Urine Clarity CLOUDY Urine pH 7.5 5-9 Urine Specific Donalds 1.020 1.016-1.022 Urine Protein NEGATIVE NEGATIVE Urine Glucose (UA) NEGATIVE NEGATIVE Urine Ketones NEGATIVE NEGATIVE Urine Nitrite NEGATIVE NEGATIVE Urine Bilirubin NEGATIVE NEGATIVE Urine Urobilinogen 1.0 < = 1.0 MG/DL Urine Leukocyte Esterase 1+ H NEGATIVE Urine RBC (Auto) NEGATIVE NEGATIVE Urine RBC NONE /HPF Urine WBC 2-5 /HPF Urine Squamous Epithelial Cells >50 H /HPF Urine Crystals NONE /LPF Urine Bacteria FEW H /HPF Urine Casts NONE /LPF Urine Mucus SMALL H /LPF Urine Culture Indicated NO Sodium Level 137 135-145 MMOL/L Potassium Level 4.1 3.6-5.0 MMOL/L Chloride Level 104 98-107 MMOL/L Carbon Dioxide Level 24 21-32 MMOL/L Anion Gap 9 5-14 MMOL/L Blood Urea Nitrogen 5 L 7-18 MG/DL Creatinine 0.68 0.60-1.30 MG/DL Estimat Glomerular Filtration Rate > 60 BUN/Creatinine Ratio 7 Glucose Level 82 70-105 MG/DL Lactic Acid Level 1.09 0.50-2.00 MMOL/L Calcium Level 9.3 8.5-10.1 MG/DL Corrected Calcium 9.4 8.5-10.1 MG/DL Total Bilirubin 0.3 0.1-1.0 MG/DL Aspartate Amino Transf (AST/SGOT) 12 5-34 U/L Alanine Aminotransferase (ALT/SGPT) 17 0-55 U/L Alkaline Phosphatase 64 40-136 U/L Total Protein 7.0 6.4-8.2 GM/DL Albumin 3.9 3.2-4.5 GM/DL Lipase 53 8-78 U/L Serum Test, Qualitative NEGATIVE NEGATIVE My Orders Orders - EMILIE STOREY MD Ua Culture If Indicated (06/20/20 11:01) Comprehensive Metabolic Panel (06/20/20 11:08) Lipase (06/20/20 11:08) Hcg,Qualitative Serum (06/20/20 11:08) Ed Iv/Invasive Line Start (06/20/20 11:08) Cbc With Automated Diff (06/20/20 11:08) Ct Abdomen/Pelvis W (06/20/20 11:08) Lactic Acid Analyzer (06/20/20 11:08) Ns Iv 1000 Ml (Sodium Chloride 0.9%) (06/20/20 11:09) Fentanyl Injection (Sublimaze Injection (06/20/20 11:09) Ondansetron Injection (Zofran Injectio (06/20/20 11:09) Iohexol Injection (Omnipaque 350 Mg/Ml 1 (06/20/20 11:15) Received Contrast (Hold Metformin- Contr (06/20/20 11:15) Sodium Chloride Flush (Catheter Flush Sy (06/20/20 11:15) Ns (Ivpb) (Sodium Chloride 0.9% Ivpb Bag (06/20/20 11:15) Piperacillin Sodium/Tazobactam (Zosyn Vi (06/20/20 12:15) Ondansetron Injection (Zofran Injectio (06/20/20 12:26) Fentanyl Injection (Sublimaze Injection (06/20/20 12:26) Medications Given in ED Vital Signs/I&O 06/20/20 06/20/20 11:01 13:45 Temp 36.1 36.4 Pulse 86 76 Resp 16 16 B/P (MAP) 129/71 (90) 111/76 Pulse Ox 98 98 O2 Delivery Room Air Room Air Blood Pressure Mean: 90 Progress Progress Note #1: Progress Note Check lab with urinalysis. Give IV fluids for hydration, fentanyl for pain, Zofran for nausea. Obtain a CT scan of the abdomen and pelvis with IV contrast to evaluate for possible diverticulitis. Progress Note #2: Time: 12:08 Progress Note labs show a mildly elevated WBC count to 13.5 with a normal differential. Chemistry and lactic acid normal without any significant abnormality. UA stable other than contaminated with several epithelial cells. Negative serum HCG. Awaiting CT scan results. Progress Note #3: Time: 12:28 Progress Note Pt reports pain and nausea coming back after IV contrast and moving around for scan. Fluids have infused from [address] scan shows diverticulosis but no definite diverticulitis, however with her pain and elevated WBC count will treat for diverticulitis and have her follow up with clinic for continued concerns. Diagnostic Imaging Diagonstic Imaging: CT Plain Films/CT/US/NM/MRI: abdomen, pelvis Comments NAME: [facility] REC#: [id number] PT STATUS: REG ER : 1985 PHYSICIAN: EMILIE STOREY MD ADMIT DATE: 06/20/20/ER FS Draft Date of Exam:06/20/20 CT ABDOMEN/PELVIS W PROCEDURE: CT abdomen and pelvis with contrast. TECHNIQUE: Multiple contiguous axial images were obtained through the abdomen and pelvis after administration of intravenous contrast. Auto Exposure Controls were utilized during the CT exam to meet ALARA standards for radiation dose reduction. INDICATION: Left lower quadrant abdominal pain. Nausea and vomiting. COMPARISON: 02/20/2019 FINDINGS: Included portions of the lung bases are clear. There is mild dependent atelectasis. CT ABDOMEN: There is colonic diverticulosis, but no CT evidence of acute diverticulitis. Normal appendix is identified. Small bowel loops are nondistended. The kidneys, adrenal glands, spleen, pancreas, and liver have a normal CT appearance. There is no loculated fluid collection, free fluid, nor free air within the abdomen. No abnormal mesenteric or retroperitoneal adenopathy is seen. Osseous structures show no acute abnormalities. ET PELVIS: Urinary bladder is unopacified. No calculi are seen within the urinary bladder. There is no loculated fluid collection, free fluid, nor free air. No abnormal adenopathy is seen. Right adnexal cyst measures 3 x 2.8 cm and is presumed ovarian in nature. Osseous structures show no acute abnormalities. IMPRESSION: 1. Right ovarian cyst. 2. Colonic diverticulosis, but no CT evidence of acute diverticulitis. Dictated on workstation # [id number] Dict: 06/20/20 1208 Trans: 06/20/20 1223 [facility] [id number] Interpreted by: ABRAHAM FERNANDO MD Electronically signed by: Departure Impression Primary Impression: Left sided abdominal pain Additional Impression: Diverticulitis large intestine w/o perforation or abscess w/o bleeding Disposition: 01 HOME, SELF-CARE Condition: Stable Departure-Patient Inst. Decision time for Depature: 12:32 Referrals: ERIC CALDERON MD (PCP/Family) Primary Care Physician Patient Instructions: Diverticulosis (DC), Diverticulitis (DC) Add. Discharge Instructions: Follow a liquid diet for next 24 to 48 hours and then slowly advance as you tolerate it. Take the full course of antibiotics. Check back with clinic for continued concerns/problems All discharge instructions reviewed with patient and/or family. Voiced un derstanding. Scripts Ondansetron (Ondansetron Odt) 4 Mg Tab.rapdis 4 MG PO Q6H PRN for NAUSEA/VOMITING for 3 Days, #12 TAB 0 Refills Prov: EMILIE STOREY MD 06/20/20 Hydrocodone/Acetaminophen (Hydrocodone-Acetamin 5-325 mg) 1 Each Tablet 1 EACH PO Q8H PRN for PAIN-SEVERE (8-10) for 3 Days, #9 TAB 0 Refills Prov: EMILIE STOREY MD 06/20/20 Metronidazole (Metronidazole) 500 Mg Tablet 500 MG PO TID for 10 Days, #30 TAB 0 Refills Prov: EMILIE STOREY MD 06/20/20 Sulfamethoxazole/Trimethoprim (Bactrim Ds Tablet) 1 Each Tablet 1 EACH PO BID for 10 Days, #20 TAB 0 Refills Prov: EMILIE STOREY MD 06/20/20 Work/School Note: Work Release Form Date Seen in the Emergency Department: Jun 20, 2020 Return to Work: Jun 22, 2020 Restrictions: Return-No Vomiting(24hrs) EMILIE STOREY MD Jun 20, 2020 11:19
[2020-06-20 11:22] LABS: CLARITY,URINE CLOUDY; COLOR,URINE YELLOW; PH,URINE 7.5 (5-9); PROTEIN,URINE NEGATIVE (NEGATIVE)
[2020-06-20 11:23] LABS: BACTERIA,URINE FEW /HPF; BILIRUBIN,URINE NEGATIVE (NEGATIVE); GLUCOSE, URINE (UA) NEGATIVE (NEGATIVE); KETONES,URINE NEGATIVE (NEGATIVE); LEUKOCYTE ESTERASE ,URINE 1+ (NEGATIVE); NITRITE,URINE NEGATIVE (NEGATIVE); SQUAMOUS EPITHELIAL CELL,UR >50 /HPF
[2020-06-20 11:25] LABS: BASOPHILS % (AUTO) 1 % (0-10); EOSINOPHILS % (AUTO) 3 % (0-10); HEMATOCRIT 41 % (35-52); HEMOGLOBIN 13.3 G/DL (11.5-16.0); LYMPHOCYTES # (AUTO) 3.9 X 10^3 (1.0-4.0); LYMPHOCYTES % (AUTO) 29 % (12-44); MEAN CORPUSCULAR HEMOGLOBIN 30 PG (25-34); MEAN CORPUSCULAR HGB CONC 33 G/DL (32-36); MEAN CORPUSCULAR VOLUME 92 FL (80-99); MEAN PLATELET VOLUME 10.4 FL (7.4-10.4); MONOCYTES # (AUTO) 0.8 X 10^3 (0.0-1.0); MONOCYTES % (AUTO) 6 % (0-12); NEUTROPHILS # (AUTO) 8.3 X 10^3 (1.8-7.8); NEUTROPHILS % (AUTO) 61 % (42-75); PLATELET COUNT 356 10^3/uL (130-400); RED CELL DISTRIBUTION WIDTH 13.6 % (10.0-14.5); WHITE BLOOD COUNT 13.5 10^3/uL (4.3-11.0)
[2020-06-20 11:26] LABS: BASOPHILS # (AUTO) 0.1 10^3/uL (0.0-0.1); EOSINOPHILS # (AUTO) 0.4 10^3/uL (0.0-0.3)
--- OUTSIDE RECORDS SUMMARY | 2020-06-20 11:36 | XMS REPORT | Continuity of Care Document ---
Author Organization Unknown Address Unknown Phone Unavailable Allergies Active Description Code Type Severity Reaction Onset Reported/Identified Relationship to Patient Clinical Status Yes No Known Drug Allergies [id number] Drug Allergy Unknown N/A 02/20/2019 Medications There [...] F41. 9 ANXIETY DISORDER, UNSPECIFIED 11/09/2019 ROSIE LAWERNCE, GANGA Lee Ot G43.909 MIGRAINE, UNSP, NOT [...] DIS AND OTH DI 11/10/2019 ROSIE LAWRENCE, GNAGA Lee Ot F32. 9 MAJOR DEPRESSIVE DISORDER, [...] F32.9 MAJOR DEPRESSIVE DISORDER, SINGLE EPISOD 01/29/2020 MERGED WITH [facility], MAKI Anderson Ot F41.9 ANXIETY DISORDER, UNSPECIFIED 01/29/2020 [facility] , MAKI Anderson Ot J06.9 ACUTE UPPER RESPIRATORY INFECTION, UNSPE 01/29/2020 JILL , MAKI Anderson Ot R0 5 COUGH 02/04/2020 JILL , MAKI Anderson Ot F32.9 MAJOR DEPRESSIVE DISORDER, SINGLE EPISOD 02/04/2020 [facility] DO, MAKI Anderson Ot F41.9 ANXIETY DISORDER, UNSPECIFIED 02/04/2020 JILL DOMAKI Ot J06.9 ACUTE UPPER RESPIRATORY INFECTION, UNSPE 02/04/2020 JILL DOMAKI Ot R0 5 COUGH 03/15/2020 ROVENSTINE DO, ANGELES L Ot F17.210 NICOTINE DEPENDENCE, CIGARETTES, UNCOMPL 03/15/2020 [...] DIS AND OTH DI 05/02/2020 LAKIA LAZO MD Ot F17.210 NICOTINE DEPENDENCE, CIGARETTES, UNCOMPL 05/02/2020 LAKIA LAZO MD Ot G43.909 MIGRAINE, UNSP, NOT INTRACTABLE, WITHOUT 05/02/2020 LAKIA LAZO MD Ot R51 HEADACHE 05/02/2020 LAKIA LAZO MD Ot Z79. 1 MCC (CURRENT) USE OF NON-STEROIDAL 05/02/2020 LAKIA LAZO MD Ot Z79.891 DUCT MAKER (CURRENT) USE OF OPIATE ANALGE 05/02/2020 LAKIA LAZO MD Ot Z80. 0 FAMILY HISTORY OF MALIGNANT NEOPLASM OF 05/02/2020 LAKIA LAZO MD Ot Z82. 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, PART UNSP, W/O PERF 05/28/2020 HERNANDEZ DO, DONY L Ot R07.8 9 OTHER CHEST PAIN 05/28/2020 HERNANDEZ DO, DONY L Ot R07.9 CHEST PAIN, UNSPECIFIED 05/28/2020 HERNANDEZ DO, DONY L Ot Z80.0 FAMILY HISTORY OF MALIGNANT NEOPLASM OF 05/28/2020 HERNANDEZ DO, DONY L Ot Z82.4 9 [...] A AND B ANTIGENS BY IA NRG Complete blood count (CBC) with automate [...] 15:10 Bacteria identification in wound by culture [id number] NRG FREE TEXT EXTERNAL ACTINOMYCETES TURICENSIS [...] INFLUENZA A AND B ANTIGENS BY IA [facility] Bacterial throat culture - 01/29/20 12:5 0 Bacterial throat culture [id number] [facility] FREE TEXT EXTERNAL PLUS NORMAL MARCY NR [...] 14:48 TROPONIN I FS < 0.30 <0.30 Complete urinalysis with reflex to cultu re - 06/20/20 11:00 Urine color determination YELLOW NRG Urine clarity determination CLOUDY NR G Urine pH measurement by test [...] urobilinogen measurement by automated test strip (mass/volume) 1.0 mg/dL < = 1.0 Urine leukocyte esterase detection by dipstick 1+ NEGATIVE Automated urine sediment erythrocyte cou nt by microscopy (number/high power field) NONE NRG Automated urine sediment leukocyte count by microscopy (number/high power field) [HPF] NRG Bacteria detection in urine sediment by light microsco py FEW NRG Squamous epithelial cells detection in u rine sediment by light microscopy >50 NRG Crystals detection in urine sediment by light microsco py NONE NRG Casts detection in urine sediment by light microscopy NONE NRG Mucus detection in urine sediment by light microscopy SMALL NRG Complete urinalysis with reflex to culture NO NRG Complete blood count (CBC) with automate d white blood cell (WBC) differential - 06/20/20 11:00 Blood leukocytes automated count (number/volume) 13.5 10*3/uL 4.3-11.0 Blood erythrocytes automated count (number/volume) 4.41 10*6/uL 4.35-5.85 Venous blood hemoglobin measurement (mass/volume) 13.3 g/dL 11.5-16.0 Blood hematocrit (volume fraction) 41 % 35-52 Automated erythrocyte mean corpuscular volume 92 [ foz_us] 80-99 Automated erythrocyte mean corpuscular h emoglobin (mass per erythrocyte) 30 pg 25-34 Automated erythrocyte mean corpuscular h emoglobin concentration measurement (mass/volume) 33 g/dL 32-36 Automated erythrocyte distribution width ratio 13. 6 % 10.0- 14.5 Automated blood platelet count (count/volume) 356 10*3/uL 130-400 Automated blood platelet mean volume measurement 10.4 [foz_us] 7.4-10.4 Automated blood neutrophils/100 leukocytes 61 % 42-75 Automated blood lymphocytes/100 leukocytes 29 % 12-44 Blood monocytes/100 leukocytes 6 % 0-12 Automated blood eosinophils/100 leukocytes 3 % 0-10 Automated blood basophils/100 leukocytes 1 % 0-10 Blood neutrophils automated count (number/volume) 8.3 10*3 1.8-7.8 Blood lymphocytes automated count (number/volume) 3.9 10*3 1.0-4.0 Blood monocytes automated count (number/volume) 0. 8 10*3 0.0-1.0 Automated eosinophil count 0.4 10*3/uL 0 .0-0.3 Automated blood basophil count (count/volume) 0.1 10*3/uL 0.0-0.1 Serum or plasma choriogonadotropin (preg nawaf test) detection - 06/20/20 11:00 Serum or plasma choriogonadotropin ( test) de tection NEGATIVE NEGATIVE Blood lactic acid measurement (moles/vol ume) - 06/20/20 11:00 Blood lactic acid measurement (moles/volume) 1.09 mmol/L 0.50-2.00 Encounters ACCT No. Visit Date/Time Discharge Status Pt. Type Provider Facility Loc./Unit Complaint [id number] 06/06/2020 12:40:00 06/06/2020 23:59:5 9 [facility] Outpatient KVNG, ERIC Foley [facility] [id number] 07/07/2019 11:50:00 Document Registration [id number] 05/27/2020 14:27:00 15:37:00 DIS Outpatient DONY HERNANDEZ DO [facility] ER FS CHEST PAIN, HIGH BP [id number] 04/29/2020 16:25:00 020 18:21:00 DIS Outpatient LAKIA LAZO MD [facility] ER FS MIGRAINE,NUMBNESS IN FA CE AND LIPS [id number] 03/15/2020 11:25:00 11:55:00 DIS Emergency ROVENSTWENCESLAO MOREAU ANGELES Jae [facility] ER FS HEAD PAIN [id number] 01/29/2020 12:15:00 14:34:00 DIS Emergency JILL DO, MAKI Justni [facility] ER FS FEVER/COUGH [id number] 12/20/2019 06:57:00 09:09:00 DIS Emergency RALEIGH LAWRENCE, EMILIE Bailey [facility] ER FS CHEST PAIN, SOB [id number] 11/04/2019 16:02:00 17:20:00 DIS Emergency ROSIE LAWRENCE, GANGA Lee [facility] ER FS CONGESTION,SOB [id number] 09/15/2019 19:41:00 20:22:00 DIS Emergency ALEXEY LAWRENCE, CHEN Siegel [facility] ER FS L FOOT PAIN [id number] 07/03/2019 19:24:00 22:27:00 DIS Outpatient RALEIGH LAWRENCE, EMILIE Bailey [facility] ER FS NAUSEA, FEVER, CHILLS, BODY ACHE [id number] 06/05/2019 14:34:00 15:47:00 DIS Outpatient DONY HERNANDEZ DO [facility] ER FS VAGINAL ABSCESS [id number] 06/01/2019 23:19:00 00:58:00 DIS Outpatient DA HOLLAND DO [facility] ER FS BOIL ON VAGINAL AREA [id number] 04/05/2019 15:26:00 16:21:00 DIS Emergency UMU LAWRENCE, JACOB Paz [facility] ER FS MIGRAINE [id number] 02/20/2019 16:57:00 18:12:00 DIS Emergency FEMI LAWRENCE, IVAN siegel [facility] ER FS LOW BACK PAIN [id number] 02/16/2019 20:09:00 019 20:56:00 DIS Outpatient DIANNE PAPPAS DO [facility] ER FS MIGRAINE [id number] 01/16/2019 07:52:00 019 14:00:00 DIS Inpatient CRISTOBAL ADRIENA Janee Soler ia [facility] 4TH LOWER ABDOMINAL PAIN [id number] 12/18/2018 19:32:00 019 21:38:00 DIS Emergency SHANELL HANLEY APRN [facility] ER VOMITTING BLOOD [id number] 08/14/2018 21:08:00 018 00:57:00 DIS Emergency ELVIRA BENITEZ MD [facility] ER CP [id number] 10/24/2017 21:17:00 017 22:35:00 DIS Emergency CAROL PLASENCIA DO a [facility] ER VAG PAIN W BLEEDING [id number] 02/12/2016 10:27:00 016 15:30:00 DIS Outpatient CAMRYN CORONA MD [facility] ABD PAIN,N/V [id number] 02/11/2016 11:17:00 016 13:54:00 DIS Outpatient CAMRYN CORONA MD [facility] PREOP ABD PAIN,N/V [id number] 06/20/2020 11:23:00 Document Registration [id number] 02/09/2016 11:09:00 Document Registration [id number] 02/07/2016 16:24:[address] Inpatient YOON MAHER DO Via [facility] 4TH HYPOLKALEMIA,NAUSEA,VOMITING ,ABD PAIN
[2020-06-20 11:39] LABS: ALANINE AMINOTRANSFERASE 17 U/L (0-55); ALBUMIN 3.9 GM/DL (3.2-4.5); ALKALINE PHOSPHATASE 64 U/L (40-136); BILIRUBIN,TOTAL 0.3 MG/DL (0.1-1.0); BUN/CREATININE RATIO 7; CALCIUM 9.3 MG/DL (8.5-10.1); CARBON DIOXIDE 24 MMOL/L (21-32); CHLORIDE 104 MMOL/L (98-107); CREATININE SERUM 0.68 MG/DL (0.60-1.30); GFR ESTIMATED > 60; GLUCOSE 82 MG/DL (70-105); LIPASE 53 U/L (8-78); POTASSIUM 4.1 MMOL/L (3.6-5.0); SODIUM 137 MMOL/L (135-145)
[2020-06-20] MEDS ORDERED: PIPERACILLIN SODIUM/TAZOBACTAM 4.5 GM in NS (IVPB) 100 ML IV STA (12:15)
--- NOTE | 2020-06-20 12:24 | Diagnostic Imaging Report ---
PROCEDURE: CT abdomen and pelvis with contrast. TECHNIQUE: Multiple contiguous axial images were obtained through the abdomen and pelvis after administration of intravenous contrast. Auto Exposure Controls were utilized during the CT exam to meet ALARA standards for radiation dose reduction. INDICATION: Left lower quadrant abdominal pain. Nausea and vomiting. COMPARISON: 02/20/2019 FINDINGS: Included portions of the lung bases are clear. There is mild dependent atelectasis. CT ABDOMEN: There is colonic diverticulosis, but no CT evidence of acute diverticulitis. Normal appendix is identified. Small bowel loops are nondistended. The kidneys, adrenal glands, spleen, pancreas, and liver have a normal CT appearance. There is no loculated fluid collection, free fluid, nor free air within the abdomen. No abnormal mesenteric or retroperitoneal adenopathy is seen. Osseous structures show no acute abnormalities. ET PELVIS: Urinary bladder is unopacified. No calculi are seen within the urinary bladder. There is no loculated fluid collection, free fluid, nor free air. No abnormal adenopathy is seen. Right adnexal cyst measures 3 x 2.8 cm and is presumed ovarian in nature. Osseous structures show no acute abnormalities. IMPRESSION: 1. Right ovarian cyst. 2. Colonic diverticulosis, but no CT evidence of acute diverticulitis. Dictated by: Dictated on workstation # [id number]
[2020-06-20] MEDS ORDERED: ONDA4TAB11 PO (12:37)
[2020-06-20] MEDS ORDERED: METR-145 PO (12:37)
[2020-06-20] MEDS ORDERED: HYDR-3812 PO (12:37)
[2020-06-20] MEDS ORDERED: SULF1TAB35 PO (12:37)
[2020-06-20 13:45] VITALS: BP 111/76
== END 2020-06-20 13:45 | disposition home or self-care (01) ==
LOC: EDUNIT# 10:50 → ER FS 10:52
DX: K57.32 Diverticulitis of large intestine without perforation or abscess without bleeding (principal); G43.909 Migraine, unspecified, not intractable, without status migrainosus; F17.210 Nicotine dependence, cigarettes, uncomplicated; Z82.49 Family history of ischemic heart disease and other diseases of the circulatory system; Z80.0 Family history of malignant neoplasm of digestive organs
CPT/HCPCS: 36415; 74177; 80053; 81000; 83605; 83690; 84703; 85025

== ENCOUNTER 2020-06-24 20:40 | Emergency (ER) | payer SELFPAY ==
[~2020-06-24] VITALS: Ht 162 cm; Wt 86.0 kg
[~2020-06-24 20:40] MED LIST changes: +HYDR-3812 PO; +METR-145 PO; +ONDA4TAB11 PO
--- NOTE | 2020-06-24 20:55 | ED Abdominal Pain ---
General Stated Complaint: ABD SWELLING Source of Information: Patient Exam Limitations: No Limitations History of Present Illness Date Seen by Provider: Jun 24, 2020 Time Seen by Provider: 20:52 Initial Comments 34-year-old female presents because she feels she's having some "abdominal swelling" some diarrhea. Patient was seen here on 06/20 for similar complaints. At that time she had a CT that showed diverticulosis but no diverticulitis. She had a prior history of diverticulitis and had a slight elevation of her white count so she was placed on Bactrim and Flagyl. Patient states she feels like the "the swelling is back" and that she still having some pain. She has no vomiting. No reports of fevers or chills. Patient has not followed up with her primary care provider Allergies and Home Medications Allergies Coded Allergies: No Known Drug Allergies (Verified , 02/20/19) Home Medications Azithromycin 250 Mg Tablet, 250 MG PO DAILY Prescribed by: EMILIE STOREY on 07/03/19 2220 Azithromycin 250 Mg Tablet, 250 MG PO UD TAKE 2 TABLETS TODAY, THEN TAKE 1 TABLET DAILY FOR 4 MORE DAYS Prescribed by: GANGA VELEZ MD on 11/04/19 1707 Cephalexin 500 Mg Capsule, 500 MG PO TID Prescribed by: AMALIA ROBERSON on 06/02/19 004 Cyclobenzaprine HCl 10 Mg Tablet, 10 MG PO Q8H PRN for SPASMS Prescribed by: IVAN KAHN on 02/20/19 175 Hydrocodone Bit/Acetaminophen 1 Tab Tab, 1 EACH PO Q8H PRN for PAIN-MODERATE Prescribed by: DONY HERNANDEZ on 06/05/19 1531 Hydrocodone/Acetaminophen 1 Each Tablet, 1 TAB PO Q4-6HR Prescribed by: AMALIA ROBERSON on 06/02/19 0042 Hydrocodone/Acetaminophen 1 Each Tablet, 1 EACH PO Q8H PRN for PAIN-SEVERE (8- 10) Prescribed by: EMILIE STOREY on 06/20/20 1238 Metronidazole 500 Mg Tablet, 500 MG PO TID Prescribed by: EMILIE STOREY on 06/20/20 1237 Naproxen 500 Mg Tablet, 500 MG PO BID Prescribed by: IVAN KAHN on 02/20/19 175 Ondansetron 4 Mg Tab.rapdis, 4 MG PO Q6H PRN for NAUSEA/VOMITING Prescribed by: EMILIE STOREY on 06/20/20 1237 Sulfamethoxazole/Trimethoprim 1 Each Tablet, 1 EACH PO BID Prescribed by: AMALIA ROBERSON on 06/02/19 0042 Sulfamethoxazole/Trimethoprim 1 Each Tablet, 1 EACH PO BID Prescribed by: EMILIE STOREY on 06/20/20 1237 Patient Home Medication List Home Medication List Reviewed: Yes Review of Systems Review of Systems Constitutional: No chills, No fever Respiratory: No Symptoms Reported Cardiovascular: No Symptoms Reported Gastrointestinal: See HPI, Abdominal Pain, Diarrhea 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: No Symptoms Reported Musculoskeletal: no symptoms reported Skin: no symptoms reported Psychiatric/Neurological: No Symptoms Reported Endocrine: No Symptoms Reported Past Swcbzbd-Aolknx-Ujjpdx Hx Past Med/Social Hx: Reviewed Nursing Past Med/Soc Hx Patient Social History Drug of Choice: Marijuana Type Used: Cigarettes 2nd Hand Smoke Exposure: No Recent Foreign Travel: No Contact w/Someone Who Travel: No Recent Hopitalizations: No Immunizations Up To Date Tetanus Booster (TDap): Less than 5yrs PED Vaccines UTD: Yes Seasonal Allergies Seasonal Allergies: No Past Medical History Surgeries: Yes Abdominal, Section, Gallbladder Respiratory: No Currently Using CPAP: No Currently Using BIPAP: No Cardiac: No Neurological: Yes Headaches /Migraines 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 Disorders: No 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 HEADER UP History: IUD 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: No Gastrointestinal: Yes Diverticulosis Musculoskeletal: No Endocrine: No HEENT: No Loss of Vision: Denies Hearing Impairment: Denies Cancer: No Psychosocial: Yes Anxiety, Depression Integumentary: No Blood Disorders: No Adverse Reaction/Blood Tranf: No Family Medical History Arthritis 19 MOTHER GRANDMA-MATERAL Colon cancer GRANDP-MATERANL Completed stroke 19 FATHER Congenital disease 19 FATHER Congenital heart disease 19 FATHER Diabetes mellitus 19 FATHER GRANDMA-MATERAL Hypercholesterolemia Myocardial infarction 19 FATHER GRANDP-MATERANL Heart Disease, Cancer, Diabetes Physical Exam Vital Signs Vital Signs - First Documented 06/24/20 20:45 Temp 37.2 Pulse 96 Resp 18 B/P (MAP) 112/77 (89) Pulse Ox 98 O2 Delivery Room Air Capillary Refill : Height/Weight/BMI Height: 5'5.00" Weight: 196lbs. 0.0oz. 88.446219ki; 33.00 BMI Method:Stated General Appearance: WD/WN, no apparent distress Respiratory: lungs clear, normal breath sounds Cardiovascular: normal peripheral pulses, regular rate, rhythm Gastrointestinal: soft; No distended, No guarding, No rebound; tenderness (mild diffuse) Neurologic/Psychiatric: alert, oriented x 3 Skin: normal color, warm/dry Progress/Results/Core Measures Results/Orders Lab Results Laboratory Tests Test 06/24/20 21:00 06/24/20 21:10 Range/Units White Blood Count 12.0 H 4.3-11.0 10^3/uL Red Blood Count 4.20 L 4.35-5.85 10^6/uL Hemoglobin 12.9 11.5-16.0 G/DL Hematocrit 38 35-52 % Mean Corpuscular Volume 91 80-99 FL Mean Corpuscular Hemoglobin 31 25-34 PG Mean Corpuscular Hemoglobin Concent 34 32-36 G/DL Red Cell Distribution Width 13.7 10.0-14.5 % Platelet Count 318 130-400 10^3/uL Mean Platelet Volume 10.6 H 7.4-10.4 FL Neutrophils (%) (Auto) 63 42-75 % Lymphocytes (%) (Auto) 27 12-44 % Monocytes (%) (Auto) 6 0-12 % Eosinophils (%) (Auto) 3 0-10 % Basophils (%) (Auto) 1 0-10 % Neutrophils # (Auto) 7.6 1.8-7.8 X 10^3 Lymphocytes # (Auto) 3.2 1.0-4.0 X 10^3 Monocytes # (Auto) 0.7 0.0-1.0 X 10^3 Eosinophils # (Auto) 0.3 0.0-0.3 10^3/uL Basophils # (Auto) 0.1 0.0-0.1 10^3/uL Sodium Level 137 135-145 MMOL/L Potassium Level 3.9 3.6-5.0 MMOL/L Chloride Level 103 98-107 MMOL/L Carbon Dioxide Level 22 21-32 MMOL/L Anion Gap 12 5-14 MMOL/L Blood Urea Nitrogen 6 L 7-18 MG/DL Creatinine 0.72 0.60-1.30 MG/DL Estimat Glomerular Filtration Rate > 60 BUN/Creatinine Ratio 8 Glucose Level 100 70-105 MG/DL Calcium Level 9.4 8.5-10.1 MG/DL Corrected Calcium 9.5 8.5-10.1 MG/DL Total Bilirubin 0.2 0.1-1.0 MG/DL Aspartate Amino Transf (AST/SGOT) 21 5-34 U/L Alanine Aminotransferase (ALT/SGPT) 22 0-55 U/L Alkaline Phosphatase 60 40-136 U/L Total Protein 6.9 6.4-8.2 GM/DL Albumin 3.9 3.2-4.5 GM/DL Lipase 28 8-78 U/L Urine Color DARK YELLOW Urine Clarity SL CLOUDY Urine pH 6.0 5-9 Urine Specific [place] 1.025 H 1.016-1.022 Urine Protein NEGATIVE NEGATIVE Urine Glucose (UA) NEGATIVE NEGATIVE Urine Ketones TRACE H NEGATIVE Urine Nitrite NEGATIVE NEGATIVE Urine Bilirubin NEGATIVE NEGATIVE Urine Urobilinogen 0.2 < = 1.0 MG/DL Urine Leukocyte Esterase TRACE H NEGATIVE Urine RBC (Auto) NEGATIVE NEGATIVE Urine RBC 0-2 /HPF Urine WBC 5-10 H /HPF Urine Squamous Epithelial Cells 10-25 H /HPF Urine Crystals NONE /LPF Urine Bacteria FEW H /HPF Urine Casts NONE /LPF Urine Mucus LARGE H /LPF Urine Culture Indicated YES Urine Opiates Screen NEGATIVE NEGATIVE Urine Oxycodone Screen NEGATIVE NEGATIVE Urine Methadone Screen NEGATIVE NEGATIVE Urine Propoxyphene Screen NEGATIVE NEGATIVE Urine Barbiturates Screen NEGATIVE NEGATIVE Ur Tricyclic Antidepressants Screen NEGATIVE NEGATIVE Urine Phencyclidine Screen NEGATIVE NEGATIVE Urine Amphetamines Screen NEGATIVE NEGATIVE Urine Methamphetamines Screen NEGATIVE NEGATIVE Urine Benzodiazepines Screen NEGATIVE NEGATIVE Urine Cocaine Screen NEGATIVE NEGATIVE Urine Cannabinoids Screen NEGATIVE NEGATIVE My Orders Orders - HERNANDEZ,DONY L DO Cbc With Automated Diff (06/24/20 20:55) Comprehensive Metabolic Panel (06/24/20 20:55) Drug Screen Stat (Urine) (06/24/20 20:55) Lactic Acid Analyzer (06/24/20 20:55) Lipase (06/24/20 20:55) Ua Culture If Indicated (06/24/20 20:55) Acute Abd Series (06/24/20 20:55) Urine Culture (06/24/20 21:10) Vital Signs/I&O 06/24/20 20:45 Temp 37.2 Pulse 96 Resp 18 B/P (MAP) 112/77 (89) Pulse Ox 98 O2 Delivery Room Air Progress Progress Note : Time: 21:34 Progress Note Chart review shows patient has been having similar symptoms as far back as at least . That time she had a colonoscopy and EGD that showed no acute findings by Dr. CORONA. Patient CT from a couple days ago showed no acute findings. Her white count has improved from then. She should continue take the Bactrim and the Flagyl. At this time no further workup is warranted. If symptoms continue I recommend she follow-up with her primary care provider and may need to follow-up with Dr. CORONA again for further outpatient evaluation. Patient is stable I'll be discharged home Departure Impression Primary Impression: Abdominal pain Qualified Codes: R10.9 - Unspecified abdominal pain Disposition: HOME, SELF-CARE Condition: Stable Departure-Patient Inst. Referrals: SELF,ERIC LAWRENCE (PCP/Family) Primary Care Physician Patient Instructions: Diverticulosis (DC) Add. Discharge Instructions: Continue medication prescribed you by Dr. Storey. If symptoms are not improving over the next 3-4 days follow-up with your primary care provider for further outpatient evaluation and possible repeat EGD and colonoscopy. Emergency department focuses on treating and ruling out life-threatening diseases. Whenever possible, a diagnosis is given. However, most patients are given an impression based on their history, physical exam, and workup during your brief time in the ER. Information about probable diagnosis and other educational material has been provided. Please take the time to read and understand this information. It is very important that you follow up with a physician as discussed during the visit today. Failure to adhere to your follow-up instructions may lead to severe disability, injury, or so please make sure to keep your appointments or obtain one as requested. Please keep in mind the emergency department is not d esigned to your primary care or "family doctor" and nonurgent issues are best evaluated by an outpatient physician DONY HERNANDEZ DO Jun 24, 2020 20:55
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
[2020-06-24 21:10] LABS: BASOPHILS % (AUTO) 1 % (0-10); EOSINOPHILS % (AUTO) 3 % (0-10); HEMATOCRIT 38 % (35-52); HEMOGLOBIN 12.9 G/DL (11.5-16.0); LYMPHOCYTES % (AUTO) 27 % (12-44); MEAN CORPUSCULAR HEMOGLOBIN 31 PG (25-34); MEAN CORPUSCULAR HGB CONC 34 G/DL (32-36); MEAN CORPUSCULAR VOLUME 91 FL (80-99); MEAN PLATELET VOLUME 10.6 FL (7.4-10.4); MONOCYTES % (AUTO) 6 % (0-12); PLATELET COUNT 318 10^3/uL (130-400); RED CELL DISTRIBUTION WIDTH 13.7 % (10.0-14.5)
[2020-06-24 21:11] LABS: BASOPHILS # (AUTO) 0.1 10^3/uL (0.0-0.1); EOSINOPHILS # (AUTO) 0.3 10^3/uL (0.0-0.3); LYMPHOCYTES # (AUTO) 3.2 X 10^3 (1.0-4.0); MONOCYTES # (AUTO) 0.7 X 10^3 (0.0-1.0); NEUTROPHILS # (AUTO) 7.6 X 10^3 (1.8-7.8); NEUTROPHILS % (AUTO) 63 % (42-75)
[2020-06-24 21:22] LABS: CLARITY,URINE SL CLOUDY; COLOR,URINE DARK YELLOW; GLUCOSE, URINE (UA) NEGATIVE (NEGATIVE); PROTEIN,URINE NEGATIVE (NEGATIVE)
[2020-06-24 21:23] LABS: BACTERIA,URINE FEW /HPF; BILIRUBIN,URINE NEGATIVE (NEGATIVE); KETONES,URINE TRACE (NEGATIVE); LEUKOCYTE ESTERASE ,URINE TRACE (NEGATIVE); NITRITE,URINE NEGATIVE (NEGATIVE); RBC,URINE 0-2 /HPF
[2020-06-24 21:27] LABS: AMPHETAMINE SCREEN, URINE NEGATIVE (NEGATIVE); BARBITURATE SCREEN URINE NEGATIVE (NEGATIVE); BENZODIAZEPINES SCREEN URINE NEGATIVE (NEGATIVE); CANNABINOID SCREEN, URINE NEGATIVE (NEGATIVE); COCAINE SCREEN URINE NEGATIVE (NEGATIVE); METHAMPHETAMINE SCREEN URINE S NEGATIVE (NEGATIVE); OPIATE SCREEN URINE NEGATIVE (NEGATIVE); TRICYCLIC ANTIDEPRESSANTS SCRE NEGATIVE (NEGATIVE)
[2020-06-24 21:28] LABS: METHADONE STAT NEGATIVE (NEGATIVE); OXYCODONE STAT NEGATIVE (NEGATIVE); PROPOXYPHENE STAT NEGATIVE (NEGATIVE)
[2020-06-24 21:29] LABS: BUN/CREATININE RATIO 8; CARBON DIOXIDE 22 MMOL/L (21-32); CHLORIDE 103 MMOL/L (98-107); CREATININE SERUM 0.72 MG/DL (0.60-1.30); GFR ESTIMATED > 60; POTASSIUM 3.9 MMOL/L (3.6-5.0); SODIUM 137 MMOL/L (135-145)
[2020-06-24 21:30] LABS: ALANINE AMINOTRANSFERASE 22 U/L (0-55); ALBUMIN 3.9 GM/DL (3.2-4.5); ALKALINE PHOSPHATASE 60 U/L (40-136); BILIRUBIN,TOTAL 0.2 MG/DL (0.1-1.0); CALCIUM 9.4 MG/DL (8.5-10.1); GLUCOSE 100 MG/DL (70-105); LIPASE 28 U/L (8-78); TOTAL PROTEIN 6.9 GM/DL (6.4-8.2)
[2020-06-24 21:39] VITALS: BP 112/77
--- NOTE | 2020-06-25 07:20 | Diagnostic Imaging Report ---
Acute abdomen series at 904 hours. INDICATION: Abdominal pain. The accompanying erect PA chest shows heart size to be within normal limits and stable when compared to 05/27/2020. The lungs are clear. There is no sign of a pneumoperitoneum. Supine and erect views of the abdomen were obtained. There is some gas in both the large and small bowel in a nonspecific fashion. This appearance is similar to the CT abdomen/pelvis exam of 06/20/2020. There has been some increased amount of gas and fecal material within the colon since the prior study. There is no mass or organomegaly appreciated. The osseous structures are intact. IMPRESSION: There has been some increase in amount of gas and fecal material within the colon since the prior exam. There is no acute abnormality noted, however. Dictated by: Dictated on workstation # [id number]
== END 2020-06-24 21:41 | disposition home or self-care (01) ==
LOC: EDUNIT# 20:40 → ER FS 20:41
DX: R10.84 Generalized abdominal pain (principal); G43.909 Migraine, unspecified, not intractable, without status migrainosus; Z87.19 Personal history of other diseases of the digestive system; Z80.0 Family history of malignant neoplasm of digestive organs; Z82.49 Family history of ischemic heart disease and other diseases of the circulatory system
CPT/HCPCS: 36415; 74022; 80053; 80306; 81000; 83690; 85025; 87088; 99282

== ENCOUNTER 2020-09-23 18:49 | Emergency (ER) | payer SELFPAY ==
[~2020-09-23 18:49] MED LIST changes: -HYDR-3812 PO
[2020-09-23] MEDS ORDERED: SULF1TAB35 PO (19:00)
[2020-09-23] MEDS ORDERED: HYDROcodone/APAP 5 MG/325 MG (LORTAB) TAB PO ONE (19:00)
[2020-09-23] MEDS ORDERED: TRIM/SULFAMETH 160/800 (SEPTRA DS) TAB PO ONE (19:00)
--- NOTE | 2020-09-23 19:01 | ED Integumentary General ---
General Chief Complaint: Skin/Wound Problems Stated Complaint: BOIL ON VAGINAL AREA Source: patient, RN/MD, RN notes reviewed Exam Limitations: no limitations History of Present Illness Date Seen by Provider: Sep 23, 2020 Time Seen by Provider: 18:50 Initial Comments This patient is a 34-year-old female presents to the emerge from for a lesion on her right labia majora. Concerning for possible abscess. Patient states she's had these in the past and has had had them lanced before. Patient states he knows that this morning seems to have gotten bigger throughout the day. Patient denies fever. Timing/Duration: this morning Severity: mild Associated Symptoms: denies symptoms Allergies and Home Medications Allergies Coded Allergies: No Known Drug Allergies (Verified , 02/20/19) Home Medications Azithromycin 250 Mg Tablet, 250 MG PO DAILY Prescribed by: EMILIE STOREY on 07/03/192219 Azithromycin 250 Mg Tablet, 250 MG PO UD TAKE 2 TABLETS TODAY, THEN TAKE 1 TABLET DAILY FOR 4 MORE DAYS Prescribed by: GANGA VELEZ MD on 11/04/19 1707 Cephalexin 500 Mg Capsule, 500 MG PO TID Prescribed by: AMALIA ROBERSON on 06/02/19 0042 Cyclobenzaprine HCl 10 Mg Tablet, 10 MG PO Q8H PRN for SPASMS Prescribed by: IVAN KAHN on 02/20/19 175 Hydrocodone Bit/Acetaminophen 1 Tab Tab, 1 EACH PO Q8H PRN for PAIN-MODERATE Prescribed by: DONY HERNANDEZ on 06/05/19 1531 Hydrocodone/Acetaminophen 1 Each Tablet, 1 TAB PO Q4-6HR Prescribed by: AMALIA ROBERSON on 06/02/19 0042 Hydrocodone/Acetaminophen 1 Each Tablet, 1 EACH PO Q8H PRN for PAIN-SEVERE (8- 10) Prescribed by: EMILIE STOREY on 06/20/20 1238 Metronidazole 500 Mg Tablet, 500 MG PO TID Prescribed by: EMILIE STOREY on 06/20/20 1237 Naproxen 500 Mg Tablet, 500 MG PO BID Prescribed by: IVAN KAHN on 02/20/19 175 Ondansetron 4 Mg Tab.rapdis, 4 MG PO Q6H PRN for NAUSEA/VOMITING Prescribed by: EMILIE STOREY on 06/20/20 1237 Sulfamethoxazole/Trimethoprim 1 Each Tablet, 1 EACH PO BID Prescribed by: AMALIA ROBERSON on 06/02/19 0042 Sulfamethoxazole/Trimethoprim 1 Each Tablet, 1 EACH PO BID Prescribed by: EMILIE STOREY on 06/20/20 1237 Patient Home Medication List Home Medication List Reviewed: Yes Review of Systems Review of Systems Constitutional: No no symptoms reported; see HPI; No chills, No diaphoresis, No dizziness, No fever, No malaise, No weakness, No weight gain, No weight loss, No other EENTM: No see HPI, No no symptoms reported, No ear discharge, No hearing loss, No ear pain, No blurred vision, No double vision, No eye pain, No tearing, No vision loss, No dental problems, No hoarseness, No mouth pain, No mouth swelling, No epistaxis, No nose congestion, No nose pain, No throat pain, No throat swelling, No other Respiratory: No no symptoms reported, No see HPI, No cough, No dyspnea on exertion, No hemoptysis, No orthopnea, No phlegm, No short of breath, No stridor, No wheezing, No other Cardiovascular: No no symptoms reported, No see HPI, No chest pain, No edema, No Hx of Intervention, No palpitations, No syncope, No vascular heart diseas, No other Gastrointestinal: No RUQ, No LUQ, No RLQ, No LLQ, No no symptoms reported, No see HPI, No abdominal pain, No constipation, No diarrhea, No dysphagia, No hematemesis, No heartburn, No jaundice, No loss of appetite, No melena, No nausea, No vomiting, No other 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: see HPI Skin: No no symptoms reported; see HPI; No change in color, No change in hair/nails, No dryness, No hx of skin cancer, No lesions, No lumps, No pruritus, No rash, No other All Other Systems Reviewed Negative Unless Noted: Yes Past Bbbokhi-Vuceqq-Kvytup Hx Patient Social History Alcohol Use: Denies Use Recreational Drug Use: Yes Drug of Choice: Marijuana Smoking Status: Current Everyday Smoker Type Used: Cigarettes 2nd Hand Smoke Exposure: No Recent Foreign Travel: No Contact w/Someone Who Travel: No Recent Hopitalizations: No Physical Abuse: No Sexual Abuse: No Mistreated: No Fear: No Immunizations Up To Date Tetanus Booster (TDap): Less than 5yrs PED Vaccines UTD: Yes Seasonal Allergies Seasonal Allergies: No Past Medical History Surgeries: Yes Abdominal, Section, Gallbladder Respiratory: No Currently Using CPAP: No Currently Using BIPAP: No Cardiac: No Neurological: Yes Headaches /Migraines 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 Disorders: No 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: No Gastrointestinal: Yes Diverticulosis Musculoskeletal: No Endocrine: No HEENT: No Loss of Vision: Denies Hearing Impairment: Denies Cancer: No Psychosocial: Yes Anxiety, Depression Integumentary: No Blood Disorders: No Adverse Reaction/Blood Tranf: No Family Medical History Arthritis 19 MOTHER GRANDMA-MATERAL Colon cancer GRANDP-MATERANL Completed stroke 19 FATHER Congenital disease 19 FATHER Congenital heart disease 19 FATHER Diabetes mellitus 19 FATHER GRANDMA-MATERAL Hypercholesterolemia Myocardial infarction 19 FATHER GRANDP-MATERANL Heart Disease, Cancer, Diabetes Physical Exam Vital Signs Capillary Refill : General Appearance: WD/WN, no apparent distress Cardiovascular: normal peripheral pulses, regular rate, rhythm, no edema, no gallop, no JVD, no murmur Respiratory: chest non-tender, lungs clear, normal breath sounds, no res piratory distress, no accessory muscle use Gastrointestinal: normal bowel sounds, non tender, soft, no organomegaly, no pulsatile mass Skin: normal color, warm/dry, other (right labia majora appears to have an ea rly abscess. Hard and tender area mild redness. Does not appear to be needing an I/D at this time) Progress/Results/Core Measures Progress Progress Note : Time: 18:57 Progress Note right labia majora appears to have an early abscess. Hard and tender area mild redness. Does not appear to be needing an I/D at this time. Appears to be consistent with an early abscess. Possibly from an ingrown hair in the area. Avoid squeezing or manipulating this area which can cause it to worsen. The expecting the this lesion may need to have an incision and drainage within the next 24-36 hours. Use warm compresses as instructed and May also use ice intermittently as needed for swelling. Tylenol Motrin as needed for pain. Take medications as prescribed. 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 If no improvement. May return to the emergency department for an I&D is needed. Departure Impression Primary Impression: Abscess of labia majora Disposition: 01 HOME, SELF-CARE Condition: Stable Departure-Patient Inst. Decision time for Depature: 18:59 Referrals: ARTURO YOUNG DO SELFERIC MD (PCP/Family) Primary Care Physician Patient Instructions: Skin Abscess, Wound Incision and Drainage (DC) Add. Discharge Instructions: Avoid squeezing or manipulating this area which can cause it to worsen. The expecting the this lesion may need to have an incision and drainage within the next 24-36 hours. Use warm compresses as instructed and May also use ice intermittently as needed for swelling. Tylenol Motrin as needed for pain. Take medications as prescribed. 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 If no improvement. May return to the emergency department for an I&D is needed. All discharge instructions reviewed with patient and/or family. Voiced understanding. Scripts Sulfamethoxazole/Trimethoprim (Bactrim Ds Tablet) 1 Each Tablet 1 EACH PO BID for 10 Days, #20 TAB 0 Refills Prov: LINNEA STEEL MD 09/23/20 LINNEA STEEL MD Sep 23, 2020 19:01
[2020-09-23 19:21] VITALS: BP 147/97
== END 2020-09-23 19:22 | disposition home or self-care (01) ==
LOC: EDUNIT# 18:49 → ER FS 18:50
DX: N76.4 Abscess of vulva (principal); F17.210 Nicotine dependence, cigarettes, uncomplicated; Z83.3 Family history of diabetes mellitus; Z80.0 Family history of malignant neoplasm of digestive organs; Z82.61 Family history of arthritis; Z82.49 Family history of ischemic heart disease and other diseases of the circulatory system
CPT/HCPCS: 99283

== ENCOUNTER 2020-10-09 22:16 | Emergency (ER) | payer SELFPAY ==
[~2020-10-09] VITALS: Ht 160 cm; Wt 86.7 kg
[2020-10-09 22:47] VITALS: BP 119/88
[2020-10-09] MEDS ORDERED: diphenhydrAMINE 50 MG/ML INJ (BENADRYL) IM ONE (23:00)
[2020-10-09] MEDS ORDERED: KETOROLAC 60 MG/2 ML VIAL IM ONE (23:00)
[2020-10-09] MEDS ORDERED: PROMETHAZINE INJ 25 MG/ML (PHENERGAN) AMP IM ONE (23:00)
[2020-10-09] MEDS ORDERED: PROM25TA14 PO (23:10)
--- NOTE | 2020-10-09 23:10 | ED General ---
General Chief Complaint: Oral/Throat Problems Stated Complaint: FEVER,SORE THROAT,MIGRIANE Nursing Triage Note: Pt c/o sore throat X3 days, Migraine- history of, tylenol at 1800. Nursing Sepsis Screen: No Definite Risk History of Present Illness Date Seen by Provider: Oct 09, 2020 Time Seen by Provider: 23:05 Initial Comments Patient presenting to emergency department for evaluation of headache and sore throat as well as fevers chills arthralgias myalgias nausea and generally not feeling well for the past 3-4 days. Patient has a history of migraine headaches and says that she is currently having a migraine headache and there is nothing different about it as it is diffuse and pounding causing her photophobia and nausea but no neck stiffness or vomiting. She says the fever has been unmeasured but she feels hot and has chills. She denies any cough dysuria hematuria rash. She says she does have sore throat and diffuse arthralgias myalgias and generally feels poor. She is in no obvious distress with normal vital signs. Allergies and Home Medications Allergies Coded Allergies: No Known Drug Allergies (Verified , 02/20/19) Home Medications Azithromycin 250 Mg Tablet, 250 MG PO DAILY Prescribed by: EMILIE STOREY on 07/03/190 Azithromycin 250 Mg Tablet, 250 MG PO UD TAKE 2 TABLETS TODAY, THEN TAKE 1 TABLET DAILY FOR 4 MORE DAYS Prescribed by: GANGA VELEZ MD on 11/04/19 1707 Cephalexin 500 Mg Capsule, 500 MG PO TID Prescribed by: AMALIA ROBERSON on 06/02/19 004 Cyclobenzaprine HCl 10 Mg Tablet, 10 MG PO Q8H PRN for SPASMS Prescribed by: IVAN KAHN on 02/20/19 1759 Hydrocodone Bit/Acetaminophen 1 Tab Tab, 1 EACH PO Q8H PRN for PAIN-MODERATE Prescribed by: DONY HERNANDEZ on 06/05/19 1531 Hydrocodone/Acetaminophen 1 Each Tablet, 1 TAB PO Q4-6HR Prescribed by: AMALIA ROBERSON on 06/02/19 004 Hydrocodone/Acetaminophen 1 Each Tablet, 1 EACH PO Q8H PRN for PAIN-SEVERE (8- 10) Prescribed by: EMILIE STOREY on 06/20/20 1238 Metronidazole 500 Mg Tablet, 500 MG PO TID Prescribed by: EMILIE STOREY on 06/20/20 1237 Naproxen 500 Mg Tablet, 500 MG PO BID Prescribed by: IVAN KAHN on 02/20/19 175 Ondansetron 4 Mg Tab.rapdis, 4 MG PO Q6H PRN for NAUSEA/VOMITING Prescribed by: EMILIE BOJORQUEZYART on 06/20/20 1237 Promethazine HCl 25 Mg Tablet, 25 MG PO Q6H PRN for NAUSEA/VOMITING Prescribed by: JAZMÍN DOMINGUEZ on 10/09/20 2310 Sulfamethoxazole/Trimethoprim 1 Each Tablet, 1 EACH PO BID Prescribed by: AMALIA ROBERSON on 06/02/19 0042 Sulfamethoxazole/Trimethoprim 1 Each Tablet, 1 EACH PO BID Prescribed by: EMILIE BOJORQUEZYART on 06/20/20 1237 Sulfamethoxazole/Trimethoprim 1 Each Tablet, 1 EACH PO BID Prescribed by: LINNEA STEEL on 09/23/20 1900 Patient Home Medication List Home Medication List Reviewed: Yes Review of Systems Review of Systems Constitutional: chills, fever, malaise, weakness EENTM: nose congestion, throat pain Respiratory: no symptoms reported Cardiovascular: no symptoms reported Gastrointestinal: nausea 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: no symptoms reported Musculoskeletal: joint pain, muscle pain Skin: no symptoms reported Psychiatric/Neurological: Headache All Other Systems Reviewed Negative Unless Noted: Yes Past Dnpyaat-Fpnxfg-Gifikk Hx Patient Social History Drug of Choice: Marijuana Type Used: Cigarettes 2nd Hand Smoke Exposure: No Recent Foreign Travel: No Contact w/Someone Who Travel: No Recent Infectious Disease Expo: No Recent Hopitalizations: No Physical Abuse: No Sexual Abuse: No Immunizations Up To Date Tetanus Booster (TDap): Less than 5yrs PED Vaccines UTD: Yes Seasonal Allergies Seasonal Allergies: No Past Medical History Surgeries: Yes Abdominal, Section, Gallbladder Respiratory: No Currently Using CPAP: No Currently Using BIPAP: No Cardiac: No Neurological: Yes Headaches /Migraines : No Last Menstrual Period: Sep 24, 2020 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 Disorders: No 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 SKATE HOP History: IUD 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: No Gastrointestinal: Yes Diverticulosis Musculoskeletal: No Endocrine: No HEENT: No Loss of Vision: Denies Hearing Impairment: Denies Cancer: No Psychosocial: Yes Anxiety, Depression Integumentary: No Blood Disorders: No Adverse Reaction/Blood Tranf: No Family Medical History Arthritis 19 MOTHER GRANDMA-MATERAL Colon cancer GRANDP-MATERANL Completed stroke 19 FATHER Congenital disease 19 FATHER Congenital heart disease 19 FATHER Diabetes mellitus 19 FATHER GRANDMA-MATERAL Hypercholesterolemia Myocardial infarction 19 FATHER GRANDP-MATERANL Heart Disease, Cancer, Diabetes Physical Exam Vital Signs Vital Signs - First Documented 10/09/20 22:21 Temp 36.2 Pulse 85 Resp 12 B/P (MAP) 120/82 (95) Pulse Ox 100 O2 Delivery Room Air Capillary Refill : Less Than 3 Seconds Height, Weight, BMI Height: 5'5.00" Weight: 196lbs. 0.0oz. [id number]; 33.00 BMI Method:Stated General Appearance: No Apparent Distress, WD/WN HEENT: PERRL/EOMI, Tonsillar Enlargement (with erythema but no purulence noted) Neck: Full Range of Motion, Supple Cardiovascular: Regular Rate, Rhythm Gastrointestinal: Non Tender, Soft Extremity: Normal Capillary Refill Neurologic/Psychiatric: Alert, Oriented x3, No Motor/Sensory Deficits Skin: Warm/Dry Progress/Results/Core Measures Suspected Sepsis Recent Fever Within 48 Hours: Yes Infection Criteria Present: Suspected New Infection New/Unexplained Altered Menta: No Sepsis Screen: No Definite Risk SIRS Temperature: Pulse: 85 Respiratory Rate: 12 Blood Pressure 120 /82 Mean: 95 Results/Orders Lab Results Laboratory Tests Test 10/09/20 22:57 Range/Units Group A Streptococcus Screen NEGATIVE NEGATIVE Micro Results Microbiology 10/09/20 Influenza Types A,B Antigen (NIKIA) - Final, Complete My Orders Orders - JAZMÍN DOMINGUEZ DO Influenza A And B Antigens (10/09/20 22:47) Rapid Strep A Screen (10/09/20 22:47) Coronavirus Sars-Cov-2 So 2018 (10/09/20 22:47) Ketorolac Injection (Toradol Injection) (10/09/20 23:00) Promethazine Injection (Phenergan Injec (10/09/20 23:00) Diphenhydramine Injection (Benadryl Inje (10/09/20 23:00) Medications Given in ED Current Medications Medications Dose Ordered Sig/Marnie Route Start Time Stop Time Status Last Admin Dose Admin Diphenhydramine HCl 50 mg ONCE ONCE IM 10/09/20 23:00 10/09/20 23:01 DC 10/09/20 23:05 50 MG Ketorolac Tromethamine 60 mg ONCE ONCE IM 10/09/20 23:00 10/09/20 23:01 DC 10/09/20 23:04 60 MG Promethazine HCl 12.5 mg ONCE ONCE IM 10/09/20 23:00 10/09/20 23:01 DC 10/09/20 23:04 12.5 MG Vital Signs/I&O 10/09/20 22:21 Temp 36.2 Pulse 85 Resp 12 B/P (MAP) 120/82 (95) Pulse Ox 100 O2 Delivery Room Air Capillary Refill : Less Than 3 Seconds Blood Pressure Mean: 95 Progress Note : Progress Note Patient with symptoms most consistent with a viral syndrome which is likely setting of a migraine headache. She has negative Kernig's and Brudzinski's and no signs of meningitis and there is no signs of obvious bacterial infection based off history of physical exam but I will check strep and influenza COVID swabs treat her symptoms and reassess. On reassessment patient feels much better and her repeat neurologic exam is normal and her vital signs continue be normal as well. She'll be treated supportively as an outpatient told to follow primary care provider within 2 days for recheck and come back to the ED sooner with worsening pain fevers vomiting or other general concerns. Patient aware and agreeable with plan and verbalized understanding of the above instructions. Departure Impression Primary Impression: Migraine Qualified Codes: G43.009 - Migraine without aura, not intractable, without status migrainosus Additional Impression: Viral syndrome Disposition: 01 HOME, SELF-CARE Condition: Stable Departure-Patient Inst. Referrals: SELF,ERIC LAWRENCE (PCP/Family) Primary Care Physician Patient Instructions: Migraines (DC) Add. Discharge Instructions: Alternate tylenol and ibuprofen for pain. Take the phenergan for pain/nausea. Benadryl will help pain as well. Drink plenty of fluids. Follow with PCP in 2- 3 days for recheck. Come back to the ED with any new or worsening symptoms. Thank you! All discharge instructions reviewed with patient and/or family. Voiced understanding. Scripts Promethazine HCl (Promethazine Tablet) 25 Mg Tablet 25 MG PO Q6H PRN for NAUSEA/VOMITING, #14 TAB Prov: JAZMÍN DOMINGUEZ DO 10/09/20 Work/School Note: Work Release Form Date Seen in the Emergency Department: Oct 09, 2020 Return to Work: Oct 12, 2020 Restrictions: No Restrictions JAZMÍN DOMINGUEZ DO Oct 09, 2020 23:10
== END 2020-10-09 22:47 | disposition home or self-care (01) ==
LOC: EDUNIT# 22:16 → ER FS 22:18
DX: G43.909 Migraine, unspecified, not intractable, without status migrainosus (principal); B34.9 Viral infection, unspecified; Z82.61 Family history of arthritis; Z80.0 Family history of malignant neoplasm of digestive organs; Z83.3 Family history of diabetes mellitus; Z82.49 Family history of ischemic heart disease and other diseases of the circulatory system
CPT/HCPCS: 87430; 87804 ×2; 99282; U0002; 87635

== ENCOUNTER 2021-01-27 19:44 | Emergency (ER) | payer SELFPAY ==
[~2021-01-27] VITALS: Ht 170.2 cm; Wt 86.2 kg
[~2021-01-27 19:44] MED LIST changes: +PROM25TA14 PO
--- NOTE | 2021-01-27 19:47 | ED Chest Pain ---
General Stated Complaint: CHEST PAIN History of Present Illness Date Seen by Provider: Jan 27, 2021 Time Seen by Provider: 19:47 Initial Comments 35-year-old female presents with left-sided chest pain. Started around 6 PM. Reports is constant. Nothing makes it better or worse. She has had similar chest pain in the past. 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 She has no known coronary artery disease. She takes no medicines. She does smoke. There is no radiation of the pain, no shortness of breath. No nausea vomiting diaphoresis. Allergies and Home Medications Allergies Coded Allergies: No Known Drug Allergies (Verified , 02/20/19) Home Medications Albuterol Sulfate 6.7 Gm Hfa.aer.ad, 2 PUFF INH Q6H Prescribed by: DONY HERNANDEZ on 01/27/212236 Azithromycin 250 Mg Tablet, 250 MG PO DAILY Prescribed by: EMILIE STOREY on 07/03/192219 Azithromycin 250 Mg Tablet, 250 MG PO UD TAKE 2 TABLETS TODAY, THEN TAKE 1 TABLET DAILY FOR 4 MORE DAYS Prescribed by: GANGA VELEZ MD on 11/04/19 170 Azithromycin 250 Mg Tablet, 250 MG PO UD TAKE 2 TABLETS ON DAY ONE THEN TAKE 1 TABLET DAILY FOR FOUR MORE DAYS Prescribed by: DONY HERNANDEZ on 01/27/212236 Cephalexin 500 Mg Capsule, 500 MG PO TID Prescribed by: AMALIA ROBERSON on 06/02/19 004 Cyclobenzaprine HCl 10 Mg Tablet, 10 MG PO Q8H PRN for SPASMS Prescribed by: IVAN KAHN on 02/20/19 175 Hydrocodone Bit/Acetaminophen 1 Tab Tab, 1 EACH PO Q8H PRN for PAIN-MODERATE Prescribed by: DONY HERNANDEZ on 06/05/19 1531 Hydrocodone/Acetaminophen 1 Each Tablet, 1 TAB PO Q4-6HR Prescribed by: AMALIA ROBERSON on 06/02/19 004 Hydrocodone/Acetaminophen 1 Each Tablet, 1 EACH PO Q8H PRN for PAIN-SEVERE (8- 10) Prescribed by: EMILIE STOREY on 06/20/20 1238 Metronidazole 500 Mg Tablet, 500 MG PO TID Prescribed by: EMILIE STOREY on 06/20/20 1237 Naproxen 500 Mg Tablet, 500 MG PO BID Prescribed by: IVAN KAHN on 02/20/19 1759 Ondansetron 4 Mg Tab.rapdis, 4 MG PO Q6H PRN for NAUSEA/VOMITING Prescribed by: EMILIE CONTRERASRT on 06/20/20 1237 Promethazine HCl 25 Mg Tablet, 25 MG PO Q6H PRN for NAUSEA/VOMITING Prescribed by: JAZMÍN DOMINGUEZ on 10/09/20 2310 Sulfamethoxazole/Trimethoprim 1 Each Tablet, 1 EACH PO BID Prescribed by: AMALIA ROBERSON on 06/02/19 0042 Sulfamethoxazole/Trimethoprim 1 Each Tablet, 1 EACH PO BID Prescribed by: EMILIE CONTRERASRT on 06/20/20 1237 Sulfamethoxazole/Trimethoprim 1 Each Tablet, 1 EACH PO BID Prescribed by: LINNEA STEEL on 09/23/20 1900 Patient Home Medication List Home Medication List Reviewed: Yes Review of Systems Review of Systems Constitutional: No chills, No fever Respiratory: Denies Cough, Denies Shortness of Air Cardiovascular: Chest Pain; Denies Irregular Heart Rate, Denies Palpitations Gastrointestinal: Denies Abdominal Pain, Denies Nausea, Denies Vomiting 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: No Symptoms Reported Musculoskeletal: no symptoms reported Skin: no symptoms reported Psychiatric/Neurological: No Symptoms Reported Endocrine: No Symptoms Reported Hematologic/Lymphatic: No Symptoms Reported Past Bzamieh-Gnhatb-Jxbjqu Hx Patient Social History Drug of Choice: Marijuana Type Used: Cigarettes 2nd Hand Smoke Exposure: No Recent Hopitalizations: No Immunizations Up To Date Tetanus Booster (TDap): Less than 5yrs PED Vaccines UTD: Yes Seasonal Allergies Seasonal Allergies: No Past Medical History Surgeries: Yes Abdominal, Section, Gallbladder Respiratory: No Currently Using CPAP: No Currently Using BIPAP: No Cardiac: No Neurological: Yes Headaches /Migraines 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 Disorders: No 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 VP PRODUCTION History: IUD 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: No Gastrointestinal: Yes Diverticulosis Musculoskeletal: No Endocrine: No HEENT: No Loss of Vision: Denies Hearing Impairment: Denies Cancer: No Psychosocial: Yes Anxiety, Depression Integumentary: No Blood Disorders: No Adverse Reaction/Blood Tranf: No Family Medical History Arthritis 19 MOTHER GRANDMA-MATERAL Colon cancer GRANDP-MATERANL Completed stroke 19 FATHER Congenital disease 19 FATHER Congenital heart disease 19 FATHER Diabetes mellitus 19 FATHER GRANDMA-MATERAL Hypercholesterolemia Myocardial infarction 19 FATHER GRANDP-MATERANL Heart Disease, Cancer, Diabetes Physical Exam Vital Signs Vital Signs - First Documented 01/27/21 01/27/21 19:47 19:50 Temp 36.6 Pulse 107 Resp 18 B/P (MAP) 162/96 (118) O2 Delivery Room Air Capillary Refill : Height, Weight, BMI Height: 5'5.00" Weight: 196lbs. 0.0oz. 88.943510ar; 33.00 BMI Method:Stated General Appearance: No Apparent Distress, WD/WN HEENT: PERRL/EOMI Respiratory: Lungs Clear, Normal Breath Sounds, Other (Tenderness to left chest wall) Cardiovascular: Regular Rate, Rhythm, No Edema Gastrointestinal: Non Tender, Soft Extremity: Normal Capillary Refill, Normal Inspection Neurologic/Psychiatric: Alert, Oriented x3, No Motor/Sensory Deficits Skin: Normal Color, Warm/Dry Progress/Results/Core Measures Results/Orders Lab Results Laboratory Tests Test 01/27/21 20:15 01/27/21 22:20 Range/Units White Blood Count 13.6 H 4.3-11.0 10^3/uL Red Blood Count 4.22 L 4.35-5.85 10^6/uL Hemoglobin 13.0 11.5-16.0 G/DL Hematocrit 39 35-52 % Mean Corpuscular Volume 92 80-99 FL Mean Corpuscular Hemoglobin 31 25-34 PG Mean Corpuscular Hemoglobin Concent 34 32-36 G/DL Red Cell Distribution Width 13.5 10.0-14.5 % Platelet Count 372 130-400 10^3/uL Mean Platelet Volume 10.5 H 7.4-10.4 FL Immature Granulocyte % (Auto) 0 % Neutrophils (%) (Auto) 58 42-75 % Lymphocytes (%) (Auto) 31 12-44 % Monocytes (%) (Auto) 5 0-12 % Eosinophils (%) (Auto) 6 0-10 % Basophils (%) (Auto) 1 0-10 % Neutrophils # (Auto) 7.8 1.8-7.8 X 10^3 Lymphocytes # (Auto) 4.2 H 1.0-4.0 X 10^3 Monocytes # (Auto) 0.7 0.0-1.0 X 10^3 Eosinophils # (Auto) 0.8 H 0.0-0.3 10^3/uL Basophils # (Auto) 0.1 0.0-0.1 10^3/uL Immature Granulocyte # (Auto) 0.0 0.0-0.1 10^3/uL Neutrophils % (Manual) 57 % Lymphocytes % (Manual) 25 % Monocytes % (Manual) 5 % Eosinophils % (Manual) 5 % Basophils % (Manual) 2 % Metamyelocytes % 3 % Band Neutrophils 2 % Blast Cells 1 % Microcytosis SLIGHT Prothrombin Time 13.1 12.2-14.7 SEC INR Comment 1.0 0.8-1.4 Activated Partial Thromboplast Time 29 24-35 SEC D-Dimer 0.22 0.00-0.49 UG/ML Sodium Level 136 135-145 MMOL/L Potassium Level 3.5 L 3.6-5.0 MMOL/L Chloride Level 104 98-107 MMOL/L Carbon Dioxide Level 25 21-32 MMOL/L Anion Gap 7 5-14 MMOL/L Blood Urea Nitrogen 7 7-18 MG/DL Creatinine 0.64 0.60-1.30 MG/DL Estimat Glomerular Filtration Rate > 60 BUN/Creatinine Ratio 11 Glucose Level 97 70-105 MG/DL Calcium Level 8.9 8.5-10.1 MG/DL Corrected Calcium 8.8 8.5-10.1 MG/DL Magnesium Level 2.2 1.6-2.4 MG/DL Total Bilirubin 0.2 0.1-1.0 MG/DL Aspartate Amino Transf (AST/SGOT) 15 5-34 U/L Alanine Aminotransferase (ALT/SGPT) 16 0-55 U/L Alkaline Phosphatase 72 40-136 U/L Myoglobin 21.0 10.0-92.0 NG/ML Troponin I 0.30 0.30 <0.30 NG/ML Pro-B-Type Natriuretic Peptide 91.5 H <75.0 PG/ML Total Protein 6.6 6.4-8.2 GM/DL Albumin 4.1 3.2-4.5 GM/DL My Orders Orders - HERNANDEZ,DONY L DO Cbc With Automated Diff (01/27/21 19:50) Magnesium (01/27/21 19:50) Chest 1 View Ap/Pa Only (01/27/21 19:50) Ekg Tracing (01/27/21 19:50) Comprehensive Metabolic Panel (01/27/21 19:50) Myoglobin Serum (01/27/21 19:50) Protime With Inr (3/22/21 19:50) Partial Thromboplastin Time (01/27/21 19:50) Monitor-Rhythm Ecg Trace Only (01/27/21 19:50) Lipid Panel (01/28/21 06:00) Aspirin Chewable Tablet (Baby Aspirin Ch (01/27/21 20:00) Ed Iv/Invasive Line Start (01/27/21 19:50) Ketorolac Injection (Toradol Injection) (01/27/21 19:50) Lactated Ringers (Lr 1000 Ml Iv Solution (01/27/21 19:55) Famotidine Injection (Pepcid Injection) (01/27/21 19:55) Probnp Fs (01/27/21 19:50) Troponin I Fs (01/27/21 19:50) Manual Differential (01/27/21 20:15) Fibrin Degradation Products (01/27/21 21:10) Albuterol/Ipra Inhalation Soln (Duoneb I (01/27/21 21:15) Svn Small Volume Nebulizer (01/27/21 21:12) Troponin I Fs (01/27/21 22:11) Medications Given in ED Current Medications Medications Dose Ordered Sig/Marnie Route Start Time Stop Time Status Last Admin Dose Admin Albuterol/ Ipratropium 3 ml ONCE ONCE INH 01/27/21 21:15 01/27/21 21:16 DC 01/27/21 21:18 3 ML Aspirin 324 mg ONCE ONCE PO 01/27/21 20:00 01/27/21 20:01 DC 01/27/21 20:15 324 MG Vital Signs/I&O 01/27/21 01/27/21 19:47 19:50 Temp 36.6 Pulse 107 Resp 18 B/P (MAP) 162/96 (118) O2 Delivery Room Air Progress Progress Note : Progress Note Patient reports she felt significantly better following breathing treatment. Patient with a slight elevation of her white count. Suspect she has a bronchitis with some underlying chronic bronchitis. I will prescribe her azithromycin and albuterol inhaler. She is stable and will be discharged Initial ECG Impression Date: Jan 27, 2021 Initial ECG Impression Time: 19:50 Initial ECG Rate: 102 Initial ECG Rhythm: S.Tach Initial ECG Impression: Nonspecific Changes Comment non specific changes, no acute st elevation or findings. slight tachycardia Departure Impression Primary Impression: Acute bronchitis Qualified Codes: J20.9 - Acute bronchitis, unspecified Disposition: 01 HOME, SELF-CARE Condition: Stable Departure-Patient Inst. Referrals: SELF,ERIC LAWRENCE (PCP/Family) Primary Care Physician Patient Instructions: Acute Bronchitis, Adult (DC), How to Use Your Metered Dose Inhaler (Adults) Add. Discharge Instructions: Follow-up with your primary care provider in approximately 4 to 5 days for recheck of today's symptoms Scripts Albuterol Sulfate (Proventil Hfa) 6.7 Gm Hfa.aer.ad 2 PUFF INH Q6H for SHORTNESS OF BREATH, #1 EACH Prov: DONY HERNANDEZ DO 01/27/21 Azithromycin (Azithromycin) 250 Mg Tablet 250 MG PO UD, #6 TAB TAKE 2 TABLETS ON DAY ONE THEN TAKE 1 TABLET DAILY FOR FOUR MORE DAYS Prov: DONY HERNANDEZ DO 01/27/21 DONY HERNANDEZ DO Jan 27, 2021 19:47
[2021-01-27] MEDS ORDERED: KETOROLAC 30 MG/ML VIAL IVP STA (19:50)
[2021-01-27] MEDS ORDERED: FAMOTIDINE 20MG/2ML IV (PEPCID) IV STA (19:55)
[2021-01-27] MEDS ORDERED: LACTATED RINGERS 1,000 ML IV STA (19:55)
[2021-01-27] MEDS ORDERED: ASPIRIN 81 MG CHEW (CHILDREN'S ASA) PO ONE (20:00)
[2021-01-27 20:35] LABS: BASOPHILS % (AUTO) 1 % (0-10); EOSINOPHILS % (AUTO) 6 % (0-10); HEMATOCRIT 39 % (35-52); LYMPHOCYTES # (AUTO) 4.2 X 10^3 (1.0-4.0); LYMPHOCYTES % (AUTO) 31 % (12-44); MEAN CORPUSCULAR HEMOGLOBIN 31 PG (25-34); MEAN CORPUSCULAR HGB CONC 34 G/DL (32-36); MEAN CORPUSCULAR VOLUME 92 FL (80-99); MEAN PLATELET VOLUME 10.5 FL (7.4-10.4); MONOCYTES % (AUTO) 5 % (0-12); NEUTROPHILS # (AUTO) 7.8 X 10^3 (1.8-7.8); NEUTROPHILS % (AUTO) 58 % (42-75); PLATELET COUNT 372 10^3/uL (130-400); WHITE BLOOD COUNT 13.6 10^3/uL (4.3-11.0)
--- NOTE | 2021-01-27 20:35 | Diagnostic Imaging Report ---
INDICATION: Chest pain starting at 1800 today. TECHNIQUE: Single view chest 8:03 PM. CORRELATION STUDY: None FINDINGS: The heart size, mediastinal configuration and pulmonary vascularity are within normal limits. The lungs are clear with no consolidating infiltrate. There is no significant effusion or pneumothorax. IMPRESSION: 1. Negative for acute abnormality of the chest. Dictated by: Dictated on workstation # [id number]
[2021-01-27 20:36] LABS: BASOPHILS # (AUTO) 0.1 10^3/uL (0.0-0.1); EOSINOPHILS # (AUTO) 0.8 10^3/uL (0.0-0.3); MONOCYTES # (AUTO) 0.7 X 10^3 (0.0-1.0)
[2021-01-27 20:43] LABS: PROTHROMBIN TIME PATIENT 13.1 SEC (12.2-14.7)
[2021-01-27 20:59] LABS: BAND NEUTROPHILS 2 %; BASOPHILS % (MANUAL) 2 %; EOSINOPHILS % (MANUAL) 5 %; MONOCYTES % (MANUAL) 5 %; NEUTROPHILS % (MANUAL) 57 %
[2021-01-27 21:00] LABS: BLAST CELLS 1 %; LYMPHOCYTES % (MANUAL) 25 %; METAMYELOCYTES % 3 %; MICROCYTOSIS SLIGHT
[2021-01-27 21:05] LABS: ALANINE AMINOTRANSFERASE 16 U/L (0-55); ALKALINE PHOSPHATASE 72 U/L (40-136); BILIRUBIN,TOTAL 0.2 MG/DL (0.1-1.0); BUN/CREATININE RATIO 11; CALCIUM 8.9 MG/DL (8.5-10.1); CARBON DIOXIDE 25 MMOL/L (21-32); CHLORIDE 104 MMOL/L (98-107); CREATININE SERUM 0.64 MG/DL (0.60-1.30); GFR ESTIMATED > 60; GLUCOSE 97 MG/DL (70-105); MAGNESIUM 2.2 MG/DL (1.6-2.4); POTASSIUM 3.5 MMOL/L (3.6-5.0); SODIUM 136 MMOL/L (135-145)
[2021-01-27 21:06] LABS: ALBUMIN 4.1 GM/DL (3.2-4.5); TOTAL PROTEIN 6.6 GM/DL (6.4-8.2)
[2021-01-27] MEDS ORDERED: RT-ALBUTEROL/IPRATROPIUM 3 ML (DUONEB) VIAL INH ONE (21:15)
[2021-01-27] MEDS ORDERED: AZIT250T12 PO (22:37)
[2021-01-27] MEDS ORDERED: RT-ALBUINH INH (22:37)
[2021-01-27 23:11] VITALS: BP 133/75
== END 2021-01-27 23:11 | disposition home or self-care (01) ==
LOC: EDUNIT# 19:44 → ER FS 19:45
DX: J20.9 Acute bronchitis, unspecified (principal); Z97.5 Presence of (intrauterine) contraceptive device; Z80.0 Family history of malignant neoplasm of digestive organs
CPT/HCPCS: 36415; 71045; 80053; 83735; 83874; 83880; 84484; 85007; 85027; 85379; 85610; 85730; 93005; 93041

== ENCOUNTER 2021-01-30 10:16 | Day surgery (SDC) | payer SELFPAY ==
[~2021-01-30] VITALS: Ht 160 cm; Wt 86.0 kg
[~2021-01-30 10:16] MED LIST changes: +RT-ALBUINH INH
[2021-01-30] MEDS ORDERED: ASPIRIN 81 MG CHEW (CHILDREN'S ASA) PO ONE (10:30)
[2021-01-30] MEDS: NITROGLYCERIN 0.4 MG SL TABS BTL 25'S SL PRN ×3 (10:32→11:05)
--- NOTE | 2021-01-30 10:34 | ED Chest Pain ---
General Chief Complaint: Chest Pain Stated Complaint: CHEST/LEFT ARM PAIN Nursing Triage Note: ARRIVED VIA AMB TO ROOM 05 WITH COMPLAINTS OF WAKING UP THIS AM WITH LEFT SIDED CHEST/BREAST PAIN THAT RADIATES INTO LEFT ARM. WAS SEEN AT ER X2 DAYS AGO. Nursing Sepsis Screen: No Definite Risk Source: patient, old records Exam Limitations: no limitations History of Present Illness Date Seen by Provider: Jan 30, 2021 Time Seen by Provider: 10:18 Initial Comments This 35-year-old young lady presents to the emergency room with left-sided chest pain for about 4 days. She presented to the emergency room in [place] on January 27 with similar symptoms. Chest pain at that time was thought to be atypical and she was prescribed azithromycin and an inhaler for suspected bronchitis. She denies any fever or cough. She feels short of breath when the pain is intense. On prior visit she was noted to have tenderness to palpation of the chest which she does not have today. Rest seems to make the pain better. She describes her pain as 5/10 in intensity at this time. She has a strong family history of early coronary artery disease. Her father had CABG in his early 40s and at age 51. Allergies and Home Medications Allergies Coded Allergies: No Known Drug Allergies (Verified , 02/20/19) Home Medications Albuterol Sulfate 6.7 Gm Hfa.aer.ad, 2 PUFF INH Q6H Prescribed by: DONY HERNANDEZ on 01/27/212236 Azithromycin 250 Mg Tablet, 250 MG PO DAILY Prescribed by: EMILIE STOREY on 07/03/192219 Azithromycin 250 Mg Tablet, 250 MG PO UD TAKE 2 TABLETS TODAY, THEN TAKE 1 TABLET DAILY FOR 4 MORE DAYS Prescribed by: GANGA VELEZ MD on 11/04/19 1707 Azithromycin 250 Mg Tablet, 250 MG PO UD TAKE 2 TABLETS ON DAY ONE THEN TAKE 1 TABLET DAILY FOR FOUR MORE DAYS Prescribed by: DONY HERNANDEZ on 01/27/212236 Cephalexin 500 Mg Capsule, 500 MG PO TID Prescribed by: AMALIA ROBERSON on 06/02/19 0042 Cyclobenzaprine HCl 10 Mg Tablet, 10 MG PO Q8H PRN for SPASMS Prescribed by: IVAN KAHN on 02/20/19 175 Hydrocodone Bit/Acetaminophen 1 Tab Tab, 1 EACH PO Q8H PRN for PAIN-MODERATE Prescribed by: DONY HERNANDEZ on 06/05/19 1531 Hydrocodone/Acetaminophen 1 Each Tablet, 1 TAB PO Q4-6HR Prescribed by: AMALIA ROBERSON on 06/02/19 0042 Hydrocodone/Acetaminophen 1 Each Tablet, 1 EACH PO Q8H PRN for PAIN-SEVERE (8- 10) Prescribed by: EMILIE STOREY on 06/20/20 1238 Metronidazole 500 Mg Tablet, 500 MG PO TID Prescribed by: EMILIE CONTRERASRT on 06/20/20 1237 Naproxen 500 Mg Tablet, 500 MG PO BID Prescribed by: IVAN KAHN on 02/20/19 1759 Ondansetron 4 Mg Tab.rapdis, 4 MG PO Q6H PRN for NAUSEA/VOMITING Prescribed by: EMILIE STOREY on 06/20/20 1237 Promethazine HCl 25 Mg Tablet, 25 MG PO Q6H PRN for NAUSEA/VOMITING Prescribed by: JAZMÍN DOMINGUEZ on 10/09/20 2310 Sulfamethoxazole/Trimethoprim 1 Each Tablet, 1 EACH PO BID Prescribed by: AMALIA ROBERSON on 06/02/19 0042 Sulfamethoxazole/Trimethoprim 1 Each Tablet, 1 EACH PO BID Prescribed by: EMILIE STOREY on 06/20/20 1237 Sulfamethoxazole/Trimethoprim 1 Each Tablet, 1 EACH PO BID Prescribed by: LINNEA STEEL on 09/23/20 1900 Patient Home Medication List Home Medication List Reviewed: Yes Review of Systems Review of Systems Constitutional: no symptoms reported EENTM: No Symptoms Reported Respiratory: See HPI Cardiovascular: See HPI Gastrointestinal: No Symptoms Reported 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: No Symptoms Reported Musculoskeletal: no symptoms reported Skin: no symptoms reported Psychiatric/Neurological: No Symptoms Reported Endocrine: No Symptoms Reported Hematologic/Lymphatic: No Symptoms Reported Past Buwkdtn-Nnwjxa-Xwsmiw Hx Past Med/Social Hx: Reviewed Nursing Past Med/Soc Hx Patient Social History Drug of Choice: Marijuana Type Used: Cigarettes 2nd Hand Smoke Exposure: No Recent Infectious Disease Expo: No Recent Hopitalizations: No Immunizations Up To Date Tetanus Booster (TDap): Less than 5yrs PED Vaccines UTD: Yes Seasonal Allergies Seasonal Allergies: No Past Medical History Surgeries: Yes Abdominal, Section, Gallbladder Respiratory: No Currently Using CPAP: No Currently Using BIPAP: No Cardiac: No Neurological: Yes Headaches /Migraines : No 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 Disorders: No 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) 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: No Gastrointestinal: Yes Diverticulosis Musculoskeletal: No Endocrine: No HEENT: No Loss of Vision: Denies Hearing Impairment: Denies Cancer: No Psychosocial: Yes Anxiety, Depression Integumentary: No Blood Disorders: No Adverse Reaction/Blood Tranf: No Family Medical History Reviewed Nursing Family Hx Arthritis 19 MOTHER GRANDMA-MATERAL Colon cancer GRANDP-MATERANL Completed stroke 19 FATHER Congenital disease 19 FATHER Congenital heart disease 19 FATHER Diabetes mellitus 19 FATHER GRANDMA-MATERAL Hypercholesterolemia Myocardial infarction 19 FATHER GRANDP-MATERANL Heart Disease, Cancer, Diabetes Physical Exam Vital Signs Vital Signs - First Documented 01/30/21 10:16 Temp 36.4 Pulse 102 Resp 16 B/P (MAP) 166/102 (123) Pulse Ox 99 O2 Delivery Room Air Capillary Refill : Less Than 3 Seconds Height, Weight, BMI Height: 5'5.00" Weight: 196lbs. 0.0oz. 88.377439np; 33.00 BMI Method:Stated General Appearance: WD/WN, Anxious, Mild Distress HEENT: PERRL/EOMI, Normal ENT Inspection Neck: Normal Inspection; No JVD Respiratory: Chest Non Tender, Lungs Clear, Normal Breath Sounds, No Accessory Muscle Use, No Respiratory Distress Cardiovascular: Regular Rate, Rhythm, No Edema, No Murmur, Normal Peripheral Pulses Gastrointestinal: Normal Bowel Sounds, Non Tender, Soft Extremity: Normal Inspection, Non Tender, No Calf Tenderness, No Pedal Edema, Other (Negative Teodora) Neurologic/Psychiatric: Alert, Oriented x3, No Motor/Sensory Deficits, nurses aide II- XII Norm as Tested, Other (Slightly anxious) Skin: Normal Color, Warm/Dry Progress/Results/Core Measures Results/Orders Lab Results Laboratory Tests Test 01/30/21 10:25 01/30/21 10:36 Range/Units White Blood Count 11.3 H 4.3-11.0 10^3/uL Red Blood Count 4.41 3.80-5.11 10^6/uL Hemoglobin 13.4 11.5-16.0 g/dL Hematocrit 41 35-52 % Mean Corpuscular Volume 93 80-99 fL Mean Corpuscular Hemoglobin 30 25-34 pg Mean Corpuscular Hemoglobin Concent 33 32-36 g/dL Red Cell Distribution Width 13.4 10.0-14.5 % Platelet Count 362 130-400 10^3/uL Mean Platelet Volume 10.3 9.0-12.2 fL Immature Granulocyte % (Auto) 0 % Neutrophils (%) (Auto) 72 42-75 % Lymphocytes (%) (Auto) 17 12-44 % Monocytes (%) (Auto) 6 0-12 % Eosinophils (%) (Auto) 5 0-10 % Basophils (%) (Auto) 1 0-10 % Neutrophils # (Auto) 8.1 H 1.8-7.8 10^3/uL Lymphocytes # (Auto) 1.9 1.0-4.0 10^3/uL Monocytes # (Auto) 0.7 0.0-1.0 10^3/uL Eosinophils # (Auto) 0.6 H 0.0-0.3 10^3/uL Basophils # (Auto) 0.1 0.0-0.1 10^3/uL Immature Granulocyte # (Auto) 0.0 0.0-0.1 10^3/uL Prothrombin Time 13.3 12.2-14.7 SEC INR Comment 1.0 0.8-1.4 Activated Partial Thromboplast Time 28 24-35 SEC D-Dimer < 0.27 0.00-0.49 UG/ML Sodium Level 138 135-145 MMOL/L Potassium Level 3.4 L 3.6-5.0 MMOL/L Chloride Level 106 98-107 MMOL/L Carbon Dioxide Level 23 21-32 MMOL/L Anion Gap 9 5-14 MMOL/L Blood Urea Nitrogen 7 7-18 MG/DL Creatinine 0.68 0.60-1.30 MG/DL Estimat Glomerular Filtration Rate > 60 BUN/Creatinine Ratio 10 Glucose Level 111 H 70-105 MG/DL Calcium Level 8.7 8.5-10.1 MG/DL Corrected Calcium 8.7 8.5-10.1 MG/DL Magnesium Level 2.1 1.6-2.4 MG/DL Total Bilirubin 0.3 0.1-1.0 MG/DL Aspartate Amino Transf (AST/SGOT) 13 5-34 U/L Alanine Aminotransferase (ALT/SGPT) 20 0-55 U/L Alkaline Phosphatase 64 40-136 U/L Myoglobin 31.6 10.0-92.0 NG/ML Troponin I < 0.028 <0.028 NG/ML C-Reactive Protein High Sensitivity 0.29 0.00-0.50 MG/DL Total Protein 7.0 6.4-8.2 GM/DL Albumin 4.0 3.2-4.5 GM/DL Serum Test, Qualitative NEGATIVE NEGATIVE Coronavirus 2019 ([facility]) Negative Negative My Orders Orders - ELVIRA BENITEZ MD Cbc With Automated Diff (01/30/21 10:24) Magnesium (01/30/21 10:24) Chest 1 View, Ap/Pa Only (01/30/21 10:24) Ekg Tracing (01/30/21 10:24) Comprehensive Metabolic Panel (01/30/21 10:24) Myoglobin Serum (01/30/21 10:24) Protime With Inr (01/30/21 10:24) Partial Thromboplastin Time (01/30/21 10:24) O2 (01/30/21 10:24) Monitor-Rhythm Ecg Trace Only (01/30/21 10:24) Lipid Panel (01/31/21 06:00) Ed Iv/Invasive Line Start (01/30/21 10:24) Troponin I (01/30/21 10:24) Nitroglycerin 0.4 Mg Btl 25's (Nitrostat (01/30/21 10:30) Aspirin Chewable Tablet (Baby Aspirin Ch (01/30/21 10:30) Hs C Reactive Protein (01/30/21 10:24) Fibrin Degradation Products (01/30/21 10:24) Hcg,Qualitative Serum (01/30/21 10:24) Covid 19 Inhouse Test (01/30/21 10:35) Metoprolol Succinate (Xl) Tab (Toprol Xl (01/30/21 12:00) Medications Given in ED Current Medications Medications Dose Ordered Sig/Marnie Route Start Time Stop Time Status Last Admin Dose Admin Aspirin 324 mg ONCE ONCE PO 01/30/21 10:30 01/30/21 10:31 DC 01/30/21 10:32 324 MG Nitroglycerin 0.4 mg UD PRN SL 01/30/21 10:30 01/30/21 11:06 DC 01/30/21 11:05 0.4 MG Vital Signs/I&O 01/30/21 10:16 Temp 36.4 Pulse 102 Resp 16 B/P (MAP) 166/102 (123) Pulse Ox 99 O2 Delivery Room Air Blood Pressure Mean: 123 Progress Progress Note #1: Time: 11:34 Progress Note Work-up was unremarkable. Patient did state her pain improved from 5/10 down to 2/10 after nitroglycerin. Aspirin was also administered. There was a signif icant improvement in blood pressure as well. EKG shows an ST depression similar to prior. Progress Note #2: Time: 11:40 Progress Note Case was reviewed with Dr. Jean-Baptiste. Given patient's presentation and improvement in pain with nitroglycerin combined with her risk factors of smoking and family history of early heart disease, we are in agreement patient should be admitted for further cardiac evaluation. He requests an echocardiogram, beta-bhakti therapy, and aspirin. He does not want any further nitroglycerin administered. Patient is to be admitted to the hospitalist service. She has received aspirin. A rapid Covid screen was negative. Blood pressure is now in the 110s systolic. Toprol-XL 25 mg will be given. Initial ECG Impression Date: Jan 30, 2021 Initial ECG Impression Time: 10:20 Initial ECG Rate: 99 Initial ECG Rhythm: Normal Sinus Comment Sinus rhythm with borderline tachycardia. Nonspecific repolarization abnormality with some ST depression. This is similar to prior EKG but perhaps slightly more pronounced in V4. Diagnostic Imaging Diagonstic Imaging: Xray Plain Films/CT/US/NM/MRI: chest Comments Chest x-ray viewed by me and report reviewed. See report below: NAME: MARCUS PADILLA [facility] REC#: [id number] PT STATUS: REG ER : 1985 PHYSICIAN: ELVIRA BENITEZ MD ADMIT DATE: 01/30/21/ER Draft Date of Exam:01/30/21 CHEST 1 VIEW, AP/PA ONLY INDICATION: Chest pain Frontal chest obtained at 1104 a.m. and compared with 01/27/2021. Heart and mediastinal silhouette are normal in appearance. The lungs are clear. There is no pneumothorax or pleural fluid. IMPRESSION: Negative chest. Dictated on workstation # [id number] Dict: 01/30/21 1120 Trans: 01/30/21 1122 [id number] Interpreted by: PAT WORLEY MD Departure Communication (Admissions) Time/Spoke to Admitting Phy: 11:45 Dr. Young Time/Spoke to Consulting Phy: 11:40 Dr. Jean-Baptiste Impression Primary Impression: Chest pain Qualified Codes: R07.9 - Chest pain, unspecified Additional Impression: Hypertension Qualified Codes: I10 - Essential (primary) hypertension Disposition: 09 ADMITTED INPATIENT Condition: Improved Admissions Decision to Admit Reason: Admit from ER (General) Decision to Admit/Date: Jan 30, 2021 Time/Decision to Admit Time: 11:30 Departure-Patient Inst. Referrals: ERIC CALDERON MD (PCP/Family) Primary Care Physician ELVIRA BENITEZ MD Jan 30, 2021 10:34
[2021-01-30 10:39] LABS: BASOPHILS # (AUTO) 0.1 10^3/uL (0.0-0.1); BASOPHILS % (AUTO) 1 % (0-10); EOSINOPHILS # (AUTO) 0.6 10^3/uL (0.0-0.3); EOSINOPHILS % (AUTO) 5 % (0-10); HEMATOCRIT 41 % (35-52); HEMOGLOBIN 13.4 g/dL (11.5-16.0); LYMPHOCYTES # (AUTO) 1.9 10^3/uL (1.0-4.0); LYMPHOCYTES % (AUTO) 17 % (12-44); MEAN CORPUSCULAR HEMOGLOBIN 30 pg (25-34); MEAN CORPUSCULAR HGB CONC 33 g/dL (32-36); MEAN CORPUSCULAR VOLUME 93 fL (80-99); MEAN PLATELET VOLUME 10.3 fL (9.0-12.2); MONOCYTES # (AUTO) 0.7 10^3/uL (0.0-1.0); MONOCYTES % (AUTO) 6 % (0-12); NEUTROPHILS # (AUTO) 8.1 10^3/uL (1.8-7.8); NEUTROPHILS % (AUTO) 72 % (42-75); PLATELET COUNT 362 10^3/uL (130-400); WHITE BLOOD COUNT 11.3 10^3/uL (4.3-11.0)
[2021-01-30 10:49] LABS: PROTHROMBIN TIME PATIENT 13.3 SEC (12.2-14.7)
[2021-01-30 10:50] LABS: CHLORIDE 106 MMOL/L (98-107); POTASSIUM 3.4 MMOL/L (3.6-5.0); SODIUM 138 MMOL/L (135-145)
[2021-01-30 10:51] LABS: CALCIUM 8.7 MG/DL (8.5-10.1)
[2021-01-30 10:52] LABS: GLUCOSE 111 MG/DL (70-105)
[2021-01-30 10:53] LABS: CARBON DIOXIDE 23 MMOL/L (21-32)
[2021-01-30 10:54] LABS: BILIRUBIN,TOTAL 0.3 MG/DL (0.1-1.0)
[2021-01-30 10:55] LABS: ALKALINE PHOSPHATASE 64 U/L (40-136)
[2021-01-30 10:56] LABS: CREATININE SERUM 0.68 MG/DL (0.60-1.30); GFR ESTIMATED > 60
[2021-01-30 10:57] LABS: BUN/CREATININE RATIO 10
[2021-01-30 10:59] LABS: ALANINE AMINOTRANSFERASE 20 U/L (0-55); MAGNESIUM 2.1 MG/DL (1.6-2.4)
--- NOTE | 2021-01-30 11:22 | Diagnostic Imaging Report ---
INDICATION: Chest pain Frontal chest obtained at 1104 a.m. and compared with 01/27/2021. Heart and mediastinal silhouette are normal in appearance. The lungs are clear. There is no pneumothorax or pleural fluid. IMPRESSION: Negative chest. Dictated by: Dictated on workstation # [id number]
[2021-01-30] MEDS ORDERED: KETOROLAC 30 MG/ML VIAL ONE (12:16)
[2021-01-30] MEDS ORDERED: KETOROLAC 30 MG/ML VIAL IVP ONE (12:30)
[2021-01-30 12:51] VITALS: BP 134/87
[2021-01-30] MEDS ORDERED: ONDANSETRON 4 MG/2 ML (SDV) Z0FRAN IVP PRN ×2 (13:00→20:30)
--- NOTE | 2021-01-30 13:04 | Consultation-Cardiology ---
HPI-Cardiology Cardiology Consultation: Date of Consultation 01/30/21 Time Seen by a Provider: 12:30 Date of Admission 01-30-21 Attending Physician Michelle Young DO Admitting Physician Alberto Huerta MD Consulting Physician Jovana Jean-Baptiste MD HPI: Chief Complaint: Chest pain Ms. Price is a 35 yr old female who has been admitted to [facility] from the ED with c/o CP. She reports left sided stabbing chest pain which radiates to her left shoulder which lasts for 2-3 minutes. It occurs several times a day with assoc shortness of breath at times and a warm feeling. She reports it occurs without r/t activity. She states she was seen in the ED at [facility] earlier this week and was diagnosed with bronchitis, given a z-pack and inhaler. She reports frequent non-productive cough which started approx 3-4 days ago. She states she received nitro x3 in the ED which helped her chest pain somewhat, but did not relieve it. She states she now has a headache. She reports chronic lower back pain. She reports frequent GERD. Review of Systems-Cardiology Review of Systems Constitutional: No chills, No fever; tiredness Eyes: No vision change Ears/Nose/Throat: No epistaxis, No recent hearing loss Respiratory: As described under HPI Cardiovascular: As described under HPI Gastrointestinal: No diarrhea, No nausea, No vomiting 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: No dysuria, No hematuria Skin: No rash on exposed areas, No ulcerations on exposed areas Psychiatric/Neurological: No anxiety, No depression, No seizure, No focal weakness, No syncope Hematologic: No bleeding abnormalities ZRZ-Qrsxzg-Pmbdij Hx Patient Social History Smoking Status: Current Everyday Smoker 2nd Hand Smoke Exposure: No Immunizations Up To Date Tetanus Booster (TDap): Less than 5yrs Past Medical History PMH As described under Assessment. Family Medical History Family Medical History: She reports her father had CAD first diagnosed in his 40's. She reports he had a CABG. Family History: 19 FATHER Completed stroke Congenital disease Congenital heart disease Diabetes mellitus Myocardial infarction 19 MOTHER Arthritis GRANDMA-MATERAL Arthritis Diabetes mellitus GRANDP-MATERANL Colon cancer Myocardial infarction Relation not specified for: Hypercholesterolemia Allergies and Home Medications Allergies Coded Allergies: No Known Drug Allergies (Verified , 02/20/19) Home Medications Acetaminophen 500 Mg Tablet, 1,000 MG PO Q6H PRN for PAIN-MILD (1-4), (Reported) Albuterol Sulfate 6.7 Gm Hfa.aer.ad, 2 PUFF INH Q6H PRN for SHORTNESS OF BREATH, (Reported) Azithromycin 250 Mg Tablet, 250 MG PO HS, (Reported) FILLED 01-28-2021 #6/5 DAY SUPPLY Cetirizine HCl 10 Mg Tablet, 10 MG PO DAILY PRN for ALLERGY SYMPTOMS, (Reported) Ibuprofen 200 Mg Tablet, 600 MG PO Q8H PRN for PAIN-MILD (1-4), (Reported) Physical Exam-Cardiology Physical Exam Vital Signs/I&O 01/30/21 01/30/21 01/31/21 01/31/21 23:18 23:25 01:00 04:00 Temp 36.7 36.6 Pulse 89 79 82 Resp 14 14 B/P (MAP) 124/80 (95) 128/76 (93) Pulse Ox 96 97 96 O2 Delivery Room Air Room Air Room Air 01/31/21 01/31/21 01/31/21 07:00 08:12 08:17 Temp 36.9 Pulse 76 84 Resp 20 B/P (MAP) 137/90 (106) Pulse Ox 98 97 O2 Delivery Room Air Room Air 01/31/21 00:00 Intake Total 480 ml Balance 480 ml Capillary Refill : Less Than 3 Seconds Constitutional: AAO x 3, well-developed, well-nourished HEENT: PERRL, hearing is well preserved, oral hygience is good Neck: No carotid bruit; carotid pulses are 2 + bilaterally Respiratory: No accessory muscle use, No respiratory distress; chest expansion is symmetric, chest is bilaterally symmetric, rhonchi (exp), other Cardiovascular: regular rate-rhythm; No JVD; S1 and S2 Gastrointestinal: No tender; soft, round Extremities: no lower extremity edema bilateral Neurologic/Psychiatric: grossly intact (moves all extremities) Skin: No rash on exposed areas, No ulcerations on exposed areas Data Review Labs Laboratory Tests 01/30/21 10:25: White Blood Count 11.3H, Red Blood Count 4.41, Hemoglobin 13.4, Hematocrit 41, Mean Corpuscular Volume 93, Mean Corpuscular Hemoglobin 30, Mean Corpuscular Hemoglobin Concent 33, Red Cell Distribution Width 13.4, Platelet Count 362, Mean Platelet Volume 10.3, Immature Granulocyte % (Auto) 0, Neutrophils (%) (Auto) 72, Lymphocytes (%) (Auto) 17, Monocytes (%) (Auto) 6, Eosinophils (%) (Auto) 5, Basophils (%) (Auto) 1, Neutrophils # (Auto) 8.1H, Lymphocytes # (Auto) 1.9, Monocytes # (Auto) 0.7, Eosinophils # (Auto) 0.6H, Basophils # (Auto) 0.1, Immature Granulocyte # (Auto) 0.0, Prothrombin Time 13.3, INR Comment 1.0, Activated Partial Thromboplast Time 28, D-Dimer < 0.27, Sodium Level 138, Potassium Level 3.4L, Chloride Level 106, Carbon Dioxide Level 23, Anion Gap 9, Blood Urea Nitrogen 7, Creatinine 0.68, Estimat Glomerular Filtration Rate > 60, BUN/Creatinine Ratio 10, Glucose Level 111H, Calcium Level 8.7, Corrected Calcium 8.7, Magnesium Level 2.1, Total Bilirubin 0.3, Aspartate Amino Transf (AST/SGOT) 13, Alanine Aminotransferase (ALT/SGPT) 20, Alkaline Phosphatase 64, Myoglobin 31.6, Troponin I < 0.028, C-Reactive Protein High Sensitivity 0.29, Total Protein 7.0, Albumin 4.0, Serum Test, Qualitative NEGATIVE 01/30/21 10:36: Coronavirus 2019 ([facility]) Negative 01/30/21 16:15: Troponin I 0.051H 01/31/21 02:35: White Blood Count 10.7, Red Blood Count 4.15, Hemoglobin 12.6, Hematocrit 38, Mean Corpuscular Volume 93, Mean Corpuscular Hemoglobin 30, Mean Corpuscular Hemoglobin Concent 33, Red Cell Distribution Width 13.4, Platelet Count 316, Mean Platelet Volume 11.0, Immature Granulocyte % (Auto) 0, Neutrophils (%) (Auto) 50, Lymphocytes (%) (Auto) 37, Monocytes (%) (Auto) 6, Eosinophils (%) (Auto) 7, Basophils (%) (Auto) 1, Neutrophils # (Auto) 5.3, Lymphocytes # (Auto) 3.9, Monocytes # (Auto) 0.6, Eosinophils # (Auto) 0.7H, Basophils # (Auto) 0.1, Immature Granulocyte # (Auto) 0.0, Sodium Level 134L, Potassium Level 3.8, Chloride Level 107, Carbon Dioxide Level 20L, Anion Gap 7, Blood Urea Nitrogen 8, Creatinine 0.62, Estimat Glomerular Filtration Rate > 60, BUN/Creatinine Ratio 13, Glucose Level 87, Calcium Level 8.3L, Corrected Calcium 8.7, Total Bilirubin 0.4, Aspartate Amino Transf (AST/SGOT) 13, Alanine Aminotransferase (ALT/SGPT) 18, Alkaline Phosphatase 54, Total Protein 6.1L, Albumin 3.5, Erythrocyte Sedimentation Rate 15, Triglycerides Level 150H, Cholesterol Level 182, LDL Cholesterol Direct 143H, VLDL Cholesterol 30, HDL Cholesterol 30L Radiology NAME: MARCUS PRICE [facility] REC#: [id number] PT STATUS: REG ER : 1985 PHYSICIAN: ELVIRA BENITEZ MD ADMIT DATE: 01/30/21/ER Draft Date of Exam:01/30/21 CHEST 1 VIEW, AP/PA ONLY INDICATION: Chest pain Frontal chest obtained at 1104 a.m. and compared with 01/27/2021. Heart and mediastinal silhouette are normal in appearance. The lungs are clear. There is no pneumothorax or pleural fluid. IMPRESSION: Negative chest. Dictated on workstation # [id number] Dict: 01/30/21 1120 Trans: 01/30/21 1122 [id number] Interpreted by: PAT WORLEY MD Electronically signed by: ECG Impression ECG Initial ECG Rhythm: Normal Sinus A/P-Cardiology Assessment/Admission Diagnosis Chest pain of undetermined etiology Hypokalemia of undetermined etiology Recent URI - bronchitis per pt report Tobaccoism - cessation advised Pre-eclempsia with of 2003 Chronic ALANIZ Chronic back pain Family h/o CAD (father in his 40's) Discussion and Recomendations Chest pain of undetermined etiology - no evidence of ACS thus far Echocardiogram to eval structure and function Serial cardiac analyzers MPI tomorrow unless otherwise indicated Management of ALANIZ is with medical services Management of URI is with medical services Further recs will be based on her hospital course Monitor lab Replace electrolytes as indicated We would like to thank medical services for this consult Clinical Quality Measures AMI/AHF: ASA po Prior to arrival: YEN Westfall Jan 30, 2021 13:04
[2021-01-30] MEDS ORDERED: PANTOPRAZOLE 40 MG (PROTONIX) TAB PO ONE (13:30)
[2021-01-30 13:36] VITALS: BP 134/86
[2021-01-30 14:09] VITALS: BP 135/79
[2021-01-30] MEDS ORDERED: HYDROmorphone 2 MG/ML VIAL (DILAUDID) IVP PRN (14:30)
[2021-01-30] MEDS ORDERED: oxyCODONE/APAP 5/325MG (PERCOCET 5) TABLET PO PRN (14:30)
[2021-01-30] MEDS ORDERED: IBUP-2473 PO (14:43)
[2021-01-30] MEDS ORDERED: ACET-2267 PO (14:43)
[2021-01-30] MEDS ORDERED: ALBU6.7H8 INH (14:43)
[2021-01-30] MEDS ORDERED: CETI10TA49 PO (14:43)
[2021-01-30] MEDS ORDERED: AZIT250T12 PO (14:43)
[2021-01-30 16:43] VITALS: BP 135/62
[2021-01-30] MEDS: NICOTINE 21 MG (NICODERM) PATCH TD SCH (16:43)
[2021-01-30] MEDS: ENOXAPARIN 40 MG/0.4 ML (LOVENOX) SYR SC SCH (18:04)
--- NOTE | 2021-01-30 18:59 | Consultation-Cardiology ---
HPI-Cardiology Cardiology Consultation: Date of Consultation 01/30/21 Time Seen by a Provider: 17:15 Date of Admission Attending Physician Michelle Young DO Admitting Physician Alberto Huerta MD Consulting Physician RASHAWN HOLGUIN MD, MA, FACP, FACC, FSCAI, CCDS HPI: Chief Complaint: CC: Chest pain HPI Ms. Price is a 35 yr old female who has been admitted to [facility] from the ED with c/o CP. She reports left sided stabbing chest pain which radiates to her left shoulder which lasts for 2-3 minutes. It occurs several times a day with assoc shortness of breath at times and a warm feeling. She reports it occurs without r/t activity. She states she was seen in the ED at [facility] earlier this week and was diagnosed with bronchitis, given a z-pack and inhaler. She reports frequent non-productive cough which started approx 3-4 days ago. She states she received nitro x3 in the ED which helped her chest pain somewhat, but did not relieve it. She states she now has a headache. She reports chronic lower back pain. She reports frequent GERD. Review of Systems-Cardiology Review of Systems Constitutional: No chills, No fever; tiredness Eyes: No vision change Ears/Nose/Throat: No epistaxis, No recent hearing loss Respiratory: As described under HPI Cardiovascular: As described under HPI Gastrointestinal: No diarrhea, No nausea, No vomiting 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: No dysuria, No hematuria Skin: No rash on exposed areas, No ulcerations on exposed areas Psychiatric/Neurological: No anxiety, No depression, No seizure, No focal weakness, No syncope Hematologic: No bleeding abnormalities GBU-Erntsa-Ixjfdl Hx Patient Social History Smoking Status: Current Everyday Smoker 2nd Hand Smoke Exposure: No Immunizations Up To Date Tetanus Booster (TDap): Less than 5yrs Past Medical History PMH As described under Assessment. Family Medical History Family Medical History: She reports her father had CAD first diagnosed in his 40's. She reports he had a CABG. Family History: Arthritis 19 MOTHER GRANDMA-MATERAL Colon cancer GRANDP-MATERANL Completed stroke 19 FATHER Congenital disease 19 FATHER Congenital heart disease 19 FATHER Diabetes mellitus 19 FATHER GRANDMA-MATERAL Hypercholesterolemia Myocardial infarction 19 FATHER GRANDP-MATERANL Allergies and Home Medications Allergies Coded Allergies: No Known Drug Allergies (Verified , 02/20/19) Home Medications Acetaminophen 500 Mg Tablet, 1,000 MG PO Q6H PRN for PAIN-MILD (1-4), (Reported) Albuterol Sulfate 6.7 Gm Hfa.aer.ad, 2 PUFF INH Q6H PRN for SHORTNESS OF BREATH, (Reported) Azithromycin 250 Mg Tablet, 250 MG PO HS, (Reported) FILLED 01-28-2021 #6/5 DAY SUPPLY Cetirizine HCl 10 Mg Tablet, 10 MG PO DAILY PRN for ALLERGY SYMPTOMS, (Reported) Ibuprofen 200 Mg Tablet, 600 MG PO Q8H PRN for PAIN-MILD (1-4), (Reported) Patient Home Medication List Home Medication List Reviewed: Yes Physical Exam-Cardiology Physical Exam Vital Signs/I&O 01/30/21 01/30/21 01/30/21 01/30/21 10:16 12:25 12:48 12:51 Temp 36.4 Pulse 102 89 76 Resp 16 16 18 B/P (MAP) 166/102 (123) 116/80 134/87 Pulse Ox 99 98 99 98 O2 Delivery Room Air Room Air Room Air 01/30/21 01/30/21 01/30/21 01/30/21 13:36 13:53 14:09 16:43 Temp 36.4 Pulse 80 86 99 69 Resp 18 19 18 B/P (MAP) 134/86 135/79 (97) 135/62 (86) Pulse Ox 98 99 99 O2 Delivery Room Air Room Air Capillary Refill : Less Than 3 Seconds Constitutional: AAO x 3, well-developed, well-nourished HEENT: PERRL, hearing is well preserved, oral hygience is good Neck: No carotid bruit; carotid pulses are 2 + bilaterally Respiratory: No accessory muscle use, No respiratory distress; chest expansion is symmetric, chest is bilaterally symmetric, rhonchi (exp), other Cardiovascular: regular rate-rhythm; No JVD; S1 and S2 Gastrointestinal: No tender; soft, round Extremities: no lower extremity edema bilateral Neurologic/Psychiatric: grossly intact (moves all extremities) Skin: No rash on exposed areas, No ulcerations on exposed areas Data Review Labs Laboratory Tests 01/30/21 10:25: White Blood Count 11.3H, Red Blood Count 4.41, Hemoglobin 13.4, Hematocrit 41, Mean Corpuscular Volume 93, Mean Corpuscular Hemoglobin 30, Mean Corpuscular Hemoglobin Concent 33, Red Cell Distribution Width 13.4, Platelet Count 362, Mean Platelet Volume 10.3, Immature Granulocyte % (Auto) 0, Neutrophils (%) (Auto) 72, Lymphocytes (%) (Auto) 17, Monocytes (%) (Auto) 6, Eosinophils (%) (Auto) 5, Basophils (%) (Auto) 1, Neutrophils # (Auto) 8.1H, Lymphocytes # (Auto) 1.9, Monocytes # (Auto) 0.7, Eosinophils # (Auto) 0.6H, Basophils # (Auto) 0.1, Immature Granulocyte # (Auto) 0.0, Prothrombin Time 13.3, INR Comment 1.0, Activated Partial Thromboplast Time 28, D-Dimer < 0.27, Sodium Level 138, Potassium Level 3.4L, Chloride Level 106, Carbon Dioxide Level 23, Anion Gap 9, Blood Urea Nitrogen 7, Creatinine 0.68, Estimat Glomerular Filtration Rate > 60, BUN/Creatinine Ratio 10, Glucose Level 111H, Calcium Level 8.7, Corrected Calcium 8.7, Magnesium Level 2.1, Total Bilirubin 0.3, Aspartate Amino Transf (AST/SGOT) 13, Alanine Aminotransferase (ALT/SGPT) 20, Alkaline Phosphatase 64, Myoglobin 31.6, Troponin I < 0.028, C-Reactive Protein High Sensitivity 0.29, Total Protein 7.0, Albumin 4.0, Serum Test, Qualitative NEGATIVE 01/30/21 10:36: Coronavirus 2019 (KANDIS) Negative 01/30/21 16:15: Troponin I 0.051H Laboratory Tests 01/30/21 10:25 A/P-Cardiology Assessment/Admission Diagnosis Chest pain, ACS suspected Echo of 01/31/20: LVEF 60-65%, PASP 25-30 mmHg Hypokalemia of undetermined etiology Recent URI - bronchitis per pt report Tobaccoism - cessation advised Pre-eclempsia with of 2003 Chronic ALANIZ Chronic back pain Family h/o CAD (father in his 40's) Discussion and Recomendations Because troponin minimally elevated, ACS is suspected. Cath advised. I reviewed the rationale, procedure, risks, benefits, potential complications, and alternatives of card cath and possible ad hoc PCI with her and answered her questions. She understands and provides consent Management of ALANIZ is with medical services Management of URI is with medical services Further recs will be based on her hospital course Monitor lab Replace electrolytes as indicated We would like to thank medical services for this consult Clinical Quality Measures AMI/AHF: ASA po Prior to arrival: RASHAWN Thomas MD FACP FACC CCDS Jan 30, 2021 18:59
[2021-01-30 19:48] VITALS: BP 150/81
[2021-01-30] MEDS ORDERED: MELATONIN 3 MG TABLET PO PRN (20:30)
[2021-01-30] MEDS ORDERED: LOPERAMIDE 2 MG (IMODIUM) TABLET PO PRN (20:30)
[2021-01-30] MEDS ORDERED: ALPRAZolam 0.25 MG (XANAX) TAB PO PRN (20:30)
[2021-01-30] MEDS ORDERED: ACETAMINOPHEN 500 MG TAB (TYLENOL) PO PRN (20:30)
[2021-01-30] MEDS ORDERED: DOCUSATE SODIUM 100 MG (COLACE) CAP PO PRN (20:30)
[2021-01-30] MEDS ORDERED: diphenhydrAMINE 25 MG TAB (BENADRYL) PO PRN (20:30)
[2021-01-30] MEDS ORDERED: CALCIUM CARBONATE 500 MG (TUMS) TAB.CHEW PO PRN (20:30)
[2021-01-30] MEDS: ZOLPIDEM 5 MG (AMBIEN) TAB PO SCH (21:46)
[2021-01-30] MEDS: SENNA W/DOCUSATE (SENOKOT S) TABLET PO SCH (21:47)
[2021-01-30 23:18] VITALS: BP 124/80
[2021-01-31] VITALS (11 sets, daily range): BP systolic 116–155; BP diastolic 76–102
[2021-01-31 03:10] LABS: BASOPHILS # (AUTO) 0.1 10^3/uL (0.0-0.1); BASOPHILS % (AUTO) 1 % (0-10); EOSINOPHILS # (AUTO) 0.7 10^3/uL (0.0-0.3); EOSINOPHILS % (AUTO) 7 % (0-10); HEMATOCRIT 38 % (35-52); HEMOGLOBIN 12.6 g/dL (11.5-16.0); LYMPHOCYTES # (AUTO) 3.9 10^3/uL (1.0-4.0); LYMPHOCYTES % (AUTO) 37 % (12-44); MEAN CORPUSCULAR HEMOGLOBIN 30 pg (25-34); MEAN CORPUSCULAR HGB CONC 33 g/dL (32-36); MEAN CORPUSCULAR VOLUME 93 fL (80-99); MONOCYTES # (AUTO) 0.6 10^3/uL (0.0-1.0); MONOCYTES % (AUTO) 6 % (0-12); NEUTROPHILS # (AUTO) 5.3 10^3/uL (1.8-7.8); NEUTROPHILS % (AUTO) 50 % (42-75); PLATELET COUNT 316 10^3/uL (130-400); WHITE BLOOD COUNT 10.7 10^3/uL (4.3-11.0)
[2021-01-31 03:25] LABS: ALBUMIN 3.5 GM/DL (3.2-4.5); CHLORIDE 107 MMOL/L (98-107); POTASSIUM 3.8 MMOL/L (3.6-5.0); SODIUM 134 MMOL/L (135-145)
[2021-01-31 03:26] LABS: CALCIUM 8.3 MG/DL (8.5-10.1)
[2021-01-31 03:27] LABS: GLUCOSE 87 MG/DL (70-105); TOTAL PROTEIN 6.1 GM/DL (6.4-8.2); TRIGLYCERIDES 150 MG/DL (<150); VLDL CHOLESTEROL 30 MG/DL (5-40)
[2021-01-31 03:28] LABS: CARBON DIOXIDE 20 MMOL/L (21-32)
[2021-01-31 03:29] LABS: BILIRUBIN,TOTAL 0.4 MG/DL (0.1-1.0)
[2021-01-31 03:31] LABS: ALKALINE PHOSPHATASE 54 U/L (40-136); CREATININE SERUM 0.62 MG/DL (0.60-1.30); GFR ESTIMATED > 60
[2021-01-31 03:32] LABS: BUN/CREATININE RATIO 13; CHOLESTEROL 182 MG/DL (< 200)
[2021-01-31 03:33] LABS: HDL CHOLESTEROL 30 MG/DL (40-60)
[2021-01-31 03:34] LABS: ALANINE AMINOTRANSFERASE 18 U/L (0-55)
[2021-01-31 03:41] LABS: ERYTHROCYTE SEDIMENTATION RATE 15 MM/HR (0-20)
--- NOTE | 2021-01-31 05:53 | Short Stay Summary-Hospitalist ---
History of Present Illness HPI/Chief Complaint CC: Chest pain suspicious for premature CAD unstable angina with elevated troponin HPI: This is a 35yoWF who has a FH of premature CAD who smokes who presented to the ER with chest pain and was admitted and monitored closely with evidence of elevated troponin so she underwent cath which revealed stenosis of LAD and s tent was placed. Smoking cessation discussed. Source: patient Exam Limitations: no limitations Date Seen 01/31/21 Time Seen by a Provider: 10:00 Attending Physician Michelle Young DO PCP Self,Alberto LAWRENCE Referring Physician Date of Admission Jan 30, 2021 at 11:49 Home Medications & Allergies Home Medications Reviewed patient Home Medication Reconciliation performed by pharmacy medication reconciliations medical laboratory technician and/or nursing. Patients Allergies have been reviewed. Allergies Allergies Coded Allergies No Known Drug Allergies (Verified02/20/19) Past [id number]-[id number] Hx Past Med/Social Hx: Reviewed Nursing Past Med/Soc Hx, Reviewed and Corrections made Patient Social History Marrital Status: Employed/Student: employed Alcohol Use: Denies Use Drug of Choice: Marijuana Smoking Status: Current Everyday Smoker Type Used: Cigarettes 2nd Hand Smoke Exposure: No Recent Foreign Travel: No Contact w/other who traveled: No Recent Hopitalizations: No Recent Infectious Disease Expo: No Immunizations Up To Date Tetanus Booster (TDap): Less than 5yrs Pediatric: Yes Seasonal Allergies Seasonal Allergies: No Past Medical History Surgeries: Abdominal, Section, Gallbladder Currently Using CPAP: No Currently Using BIPAP: No Neurological: Headaches /Migraines : No 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: No 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 IUD (Nexplanon) Gastrointestinal: Diverticulosis Loss of Vision: Denies Hearing Impairment: Denies Psychosocial: Anxiety, Depression History of Blood Disorders: No Adverse Reaction to Blood Powell: No Family History Reviewed Nursing Family Hx Arthritis 19 MOTHER GRANDMA-MATERAL Colon cancer GRANDP-MATERANL Completed stroke 19 FATHER Congenital disease 19 FATHER Congenital heart disease 19 FATHER Diabetes mellitus 19 FATHER GRANDMA-MATERAL Hypercholesterolemia Myocardial infarction 19 FATHER GRANDP-MATERANL Heart Disease, Cancer, Diabetes Review of Systems Constitutional: see HPI Cardiovascular: chest pain Physical Exam Physical Exam Vital Signs Vital Signs - First Documented 01/30/21 10:16 Temp 36.4 Pulse 102 Resp 16 B/P (MAP) 166/102 (123) Pulse Ox 99 O2 Delivery Room Air Capillary Refill : Less Than 3 Seconds Height, Weight, BMI Height: 5'5.00" Weight: 196lbs. 0.0oz. [id number]; 33.59 BMI Method:Stated General Appearance: No Apparent Distress, WD/WN, Anxious, Obese Eyes: Bilateral Eye Normal Inspection, Bilateral Eye PERRL HEENT: PERRL/EOMI, Normal ENT Inspection Neck: Normal Inspection; No JVD Respiratory: Chest Non Tender, Lungs Clear, Normal Breath Sounds, No Accessory Muscle Use, No Respiratory Distress Cardiovascular: Regular Rate, Rhythm, No Edema, No Murmur, Normal Peripheral Pulses Gastrointestinal: Normal Bowel Sounds, Non Tender, Soft Back: Normal Inspection, No CVA Tenderness, No Vertebral Tenderness Extremity: Normal Inspection, Non Tender, No Calf Tenderness, No Pedal Edema, Other (Negative Teodora) Neurologic/Psychiatric: Alert, Oriented x3, No Motor/Sensory Deficits, internet designer II- XII Norm as Tested, Other (Slightly anxious) Skin: Normal Color, Warm/Dry Lymphatic: No Adenopathy Results Results/Procedures Labs Laboratory Tests 01/30/21 10:25 01/31/21 02:35 Patient resulted labs reviewed. Short Stay Diagnosis Discharge Diagnosis-Short Stay Admission Diagnosis Unstable angina with elevated troponin Smoker Final Discharge Diagnosis Unstable angina with elevated troponin s/p stent placement in LAD in cath Smoker Conclusion Plan ICU Monitor closely Diagnosis/Problems Diagnosis/Problems (1) NSTEMI (non-ST elevated myocardial infarction) (2) Unstable angina (3) LAD stenosis (4) S/P coronary artery stent placement (5) Chest pain Status: Acute Qualifiers: Qualified Codes: R07.9 - Chest pain, unspecified (6) Smoker Status: Chronic Clinical Quality Measures AMI/AHF: ASA po Prior to arrival: MICHELLE Dhaliwal DO Jan 31, 2021 05:53
[2021-01-31] MEDS ORDERED: REGADENOSON 0.4 MG/5 ML SYR (LEXISCAN) IV ONE (08:00)
[2021-01-31] MEDS: PANTOPRAZOLE 40 MG (PROTONIX) TAB PO SCH (08:14)
[2021-01-31] MEDS ORDERED: ASPIRIN E.C. 81 MG (ECOTRIN) TAB PO SCH (09:00)
[2021-01-31] MEDS ORDERED: NS IV 1000 ML 1,000 ML ONE (09:06)
[2021-01-31] MEDS ORDERED: HEParin (CATH LAB) 2,000 ML IV ONE (09:06)
[2021-01-31] MEDS ORDERED: MIDAZOLAM 5 MG/5 ML (VERSED) VIAL ONE (09:06)
[2021-01-31] MEDS ORDERED: LIDOCAINE 1% INJ 20 ML 20 ML VIAL ONE (09:06)
[2021-01-31] MEDS ORDERED: fentaNYL INJ 100 MCG/2 ML AMP ONE ×3 (09:07→14:17)
[2021-01-31] MEDS: ENOXAPARIN 40 MG/0.4 ML (LOVENOX) SYR SC SCH (09:14)
[2021-01-31] MEDS: SENNA W/DOCUSATE (SENOKOT S) TABLET PO SCH ×2 (09:14→20:14)
[2021-01-31] MEDS ORDERED: HEParin 1000 UNIT/ML (10ML VIAL) FOR BOLUS ONE (09:29)
[2021-01-31] MEDS ORDERED: EPTIFIBATIDE BOLUS 20 ML IV ONE (09:29)
[2021-01-31] MEDS ORDERED: NITRO DRIP 25000 MCG/D5W 250 ML IV ONE (09:29)
[2021-01-31] MEDS ORDERED: ASPIRIN 325 MG (5 GR) TABLET ONE (09:51)
[2021-01-31] MEDS ORDERED: CLOPIDOGREL 300 MG (PLAVIX) TABLET PO ONE (09:52)
--- NOTE | 2021-01-31 10:06 | Progress Note - Cardiology ---
Cardiology SOAP Progress Note Subjective: No recurrence of chest discomfort No palp or syncope or shortness of breath Some gen malaise No n/v/d Objective: I&O/Vital Signs 01/30/21 01/30/21 01/31/21 01/31/21 23:18 23:25 01:00 04:00 Temp 36.7 36.6 Pulse 89 79 82 Resp 14 14 B/P (MAP) 124/80 (95) 128/76 (93) Pulse Ox 96 97 96 O2 Delivery Room Air Room Air Room Air 01/31/21 01/31/21 01/31/21 07:00 08:12 08:17 Temp 36.9 Pulse 76 84 Resp 20 B/P (MAP) 137/90 (106) Pulse Ox 98 97 O2 Delivery Room Air Room Air 01/31/21 00:00 Intake Total 480 ml Balance 480 ml Weight (Pounds): 196 Weight (Ounces): 0.0 Weight (Calculated Kilograms): 88.878954 Constitutional: AAO x 3, well-developed, well-nourished Respiratory: No accessory muscle use, No respiratory distress; chest expansion is symmetric, chest is bilaterally symmetric, rhonchi (exp), other Cardiovascular: regular rate-rhythm; No JVD; S1 and S2 Gastrointestional: No tender; soft, round Extremities: no lower extremity edema bilateral Neurologic/Psychiatric: grossly intact (moves all extremities) Skin: No rash on exposed areas, No ulcerations on exposed areas Results/Procedures: Labs Laboratory Tests 01/30/21 10:25: White Blood Count 11.3H, Red Blood Count 4.41, Hemoglobin 13.4, Hematocrit 41, Mean Corpuscular Volume 93, Mean Corpuscular Hemoglobin 30, Mean Corpuscular Hemoglobin Concent 33, Red Cell Distribution Width 13.4, Platelet Count 362, Mean Platelet Volume 10.3, Immature Granulocyte % (Auto) 0, Neutrophils (%) (Auto) 72, Lymphocytes (%) (Auto) 17, Monocytes (%) (Auto) 6, Eosinophils (%) (Auto) 5, Basophils (%) (Auto) 1, Neutrophils # (Auto) 8.1H, Lymphocytes # (Au to) 1.9, Monocytes # (Auto) 0.7, Eosinophils # (Auto) 0.6H, Basophils # (Auto) 0.1, Immature Granulocyte # (Auto) 0.0, Prothrombin Time 13.3, INR Comment 1.0, Activated Partial Thromboplast Time 28, D-Dimer < 0.27, Sodium Level 138, Potassium Level 3.4L, Chloride Level 106, Carbon Dioxide Level 23, Anion Gap 9, Blood Urea Nitrogen 7, Creatinine 0.68, Estimat Glomerular Filtration Rate > 60, BUN/Creatinine Ratio 10, Glucose Level 111H, Calcium Level 8.7, Corrected Calcium 8.7, Magnesium Level 2.1, Total Bilirubin 0.3, Aspartate Amino Transf (AST/SGOT) 13, Alanine Aminotransferase (ALT/SGPT) 20, Alkaline Phosphatase 64, Myoglobin 31.6, Troponin I < 0.028, C-Reactive Protein High Sensitivity 0.29, T otal Protein 7.0, Albumin 4.0, Serum Test, Qualitative NEGATIVE 01/30/21 10:36: Coronavirus 2019 ([facility]ANDIS) Negative 01/30/21 16:15: Troponin I 0.051H 01/31/21 02:35: White Blood Count 10.7, Red Blood Count 4.15, Hemoglobin 12.6, Hematocrit 38, Mean Corpuscular Volume 93, Mean Corpuscular Hemoglobin 30, Mean Corpuscular Hemoglobin Concent 33, Red Cell Distribution Width 13.4, Platelet Count 316, Mean Platelet Volume 11.0, Immature Granulocyte % (Auto) 0, Neutrophils (%) (Auto) 50, Lymphocytes (%) (Auto) 37, Monocytes (%) (Auto) 6, Eosinophils (%) (Auto) 7, Basophils (%) (Auto) 1, Neutrophils # (Auto) 5.3, Lymphocytes # (Auto) 3.9, Monocytes # (Auto) 0.6, Eosinophils # (Auto) 0.7H, Basophils # (Auto) 0.1, Immature Granulocyte # (Auto) 0.0, Sodium Level 134L, Potassium Level 3.8, Chloride Level 107, Carbon Dioxide Level 20L, Anion Gap 7, Blood Urea Nitrogen 8, Creatinine 0.62, Estimat Glomerular Filtration Rate > 60, BUN/Creatinine Ratio 13, Glucose Level 87, Calcium Level 8.3L, Corrected Calcium 8.7, Total Bi lirubin 0.4, Aspartate Amino Transf (AST/SGOT) 13, Alanine Aminotransferase (ALT/SGPT) 18, Alkaline Phosphatase 54, Total Protein 6.1L, Albumin 3.5, Erythrocyte Sedimentation Rate 15, Triglycerides Level 150H, Cholesterol Level 182, LDL Cholesterol Direct 143H, VLDL Cholesterol 30, HDL Cholesterol 30L A/P: Assessment: CAD - Ac NSTEMI on 01/30/21 - Card cath 01/31/21: 99% prox LAD stented successfully with Gloria 2.75 x 12 stent, mildly ectatic proximal LCX, codominant RCA w/o significant disease, LVEDP 18 mmHg, LVEF 60% Echo of 01/31/20: LVEF 60-65%, PASP 25-30 mmHg Mild electrolyte abnormalities, being corrected Recent URI - bronchitis per pt report Tobaccoism - cessation advised Pre-eclempsia with of 2003 Chronic ALANIZ Chronic back pain Family h/o CAD (father in his 40's) Plan: * DAPT * Statin * BB * Advised to quit smoking immediately and completely * Monitor labs * Dr Villalobos covering Cardiology * Outpt f/u and medication compliance advised to the patient Clinical Quality Measures AMI/AHF: ASA po Prior to arrival: RASHAWN Thomas MD FACP FAC CCDS Jan 31, 2021 10:06
[2021-01-31] MEDS ORDERED: PATIENT MAY USE OWN MEDS, ALL PO SCH (10:15)
[2021-01-31] MEDS: NICOTINE 21 MG (NICODERM) PATCH TD SCH (11:10)
[2021-01-31] MEDS: NS IV 1000 ML 1,000 ML IV SCH ×2 (11:10→15:53)
[2021-01-31] MEDS: NICOTINE PATCH REMOVAL TP SCH (11:11)
[2021-01-31] MEDS ORDERED: ATROPINE INJECTION 1 MG/10 ML SYR (ABBOTT) ONE (13:28)
[2021-01-31] MEDS ORDERED: ATROPINE INJ 0.4 MG/ML SDV ONE (13:28)
--- NOTE | 2021-01-31 14:19 | CARDIAC CATHETERIZATION ---
DATE OF SERVICE: 01/31/2021 CARDIAC CATHETERIZATION AND CORONARY INTERVENTION REPORT The patient is a 35-year-old lady who was hospitalized with chest discomfort and troponin was mildly elevated, indicating acute non-ST elevation myocardial infarction. She has been having frequent symptoms in the recent past. Given unstable symptoms and acute non-ST elevation myocardial infarction, cardiac catheterization and possible ad hoc coronary intervention were discussed and recommended. She provided informed consent. DESCRIPTION OF PROCEDURE: She was brought to the cardiac catheterization laboratory in a fasting state. Right groin was prepared and draped in the usual sterile fashion. Lidocaine 1% was used for local anesthesia. Modified Seldinger technique was used to advance a 5-Rwandan sheath in right femoral artery. A 5-Rwandan JL4 catheter was used for left coronary angiography, 5-Rwandan JR4 catheter was used for right coronary angiography, 5-Rwandan pigtail catheter was used for left heart catheterization and left ventricular angiography. Subsequently, percutaneous intervention was carried out to the left anterior descending artery, which is described below. PERCUTANEOUS INTERVENTION TO THE LEFT ANTERIOR DESCENDING: We used a 6-Rwandan JL4 guide catheter after the sheath had been exchanged over a wire for a 6-Rwandan sheath. We gave 5000 units intravenous heparin, a double bolus of Integrilin during the procedure. We used a ChoICE floppy wire to cross the lesion and the tip was placed in the distal left anterior descending. Balloon angioplasty was carried out with a 2.0 x 20 mm balloon and the lesion was then stented with Gloria 2.75 x 12 mm stent that was deployed at 12 atmospheres. This resulted in reduction of a 99% proximal left anterior descending artery stenosis to 0% residual and the flow throughout the vessel was normal. She tolerated the procedure well. The angioplasty equipment was removed. Sheath was sutured in place and she was transferred to the floor for manual sheath removal. HEMODYNAMICS: Left ventricular end-diastolic pressure following coronary angiography was 18 mmHg. There was no significant pressure gradient on pullback across the aortic valve. LEFT VENTRICULAR ANGIOGRAPHY: Left ventricular angiography was carried out in right anterior oblique projection. Global left ventricular systolic function is normal. No regional wall motion abnormalities seen in this view. Left ventricular ejection fraction is approximately 60%. CORONARY ANGIOGRAPHY: Left main coronary artery is free of significant disease. Left anterior descending artery had 99% proximal stenosis that was successfully stented with Gloria 2.75 x 2 mm stent. The left circumflex artery is mildly ectatic in its proximal portion. The right coronary artery is codominant with the left circumflex artery and does not exhibit significant disease. CONCLUSIONS: 1. Coronary artery disease primarily consisting of 99% proximal stenosis. The left anterior descending that was successfully stented with Gloria 2.75 x 12 mm stent (deployed at 20 atmospheres). The left circumflex artery is mildly ectatic in its proximal portion. Right coronary artery is codominant and does not exhibit significant disease. 2. Mild elevation of left ventricular end-diastolic pressure. 3. Normal global left ventricular systolic function with ejection fraction approximately 60%. CONCLUSIONS: Dual antiplatelet therapy has been initiated. Statin therapy is being added. Beta bhakti therapy has been added and is being continued. She has been advised to quit smoking immediately and completely. Outpatient followup is advised. Medication compliance is advised. She remains hospitalized for observation at the time of the dictation. Job ID: [id number] DocumentID: [id number] Dictated Date: 01/31/2021 10:20:16 Manager Building Date: 01/31/2021 14:18:33 Dictated By: RASHAWN HOLGUIN MD, MA, FACP, FACC,
[2021-01-31] MEDS ORDERED: CLOP75TA28 PO (15:50)
[2021-01-31] MEDS ORDERED: ASPI81TA64 PO (15:50)
[2021-01-31] MEDS ORDERED: MTP25TSR PO (15:50)
[2021-01-31] MEDS ORDERED: ATOR80TA76 PO (15:50)
[2021-01-31] MEDS: ZOLPIDEM 5 MG (AMBIEN) TAB PO SCH (20:14)
[2021-02-01] VITALS: BP 122/71
[2021-02-01] MEDS: HYDROcodone/APAP 5 MG/325 MG (LORTAB) TAB PO PRN ×2 (03:18→15:00)
[2021-02-01 03:34] LABS: BASOPHILS # (AUTO) 0.1 10^3/uL (0.0-0.1); BASOPHILS % (AUTO) 1 % (0-10); EOSINOPHILS # (AUTO) 0.5 10^3/uL (0.0-0.3); EOSINOPHILS % (AUTO) 4 % (0-10); HEMATOCRIT 37 % (35-52); HEMOGLOBIN 12.1 g/dL (11.5-16.0); LYMPHOCYTES # (AUTO) 2.8 10^3/uL (1.0-4.0); LYMPHOCYTES % (AUTO) 24 % (12-44); MEAN CORPUSCULAR HEMOGLOBIN 31 pg (25-34); MEAN CORPUSCULAR HGB CONC 33 g/dL (32-36); MEAN CORPUSCULAR VOLUME 93 fL (80-99); MEAN PLATELET VOLUME 10.9 fL (9.0-12.2); MONOCYTES # (AUTO) 0.7 10^3/uL (0.0-1.0); MONOCYTES % (AUTO) 6 % (0-12); NEUTROPHILS # (AUTO) 7.8 10^3/uL (1.8-7.8); NEUTROPHILS % (AUTO) 65 % (42-75); PLATELET COUNT 301 10^3/uL (130-400); WHITE BLOOD COUNT 11.9 10^3/uL (4.3-11.0)
[2021-02-01 03:48] LABS: CHLORIDE 108 MMOL/L (98-107); SODIUM 136 MMOL/L (135-145)
[2021-02-01 03:49] LABS: CALCIUM 8.2 MG/DL (8.5-10.1)
[2021-02-01 03:50] LABS: GLUCOSE 91 MG/DL (70-105)
[2021-02-01 03:51] LABS: CARBON DIOXIDE 19 MMOL/L (21-32)
[2021-02-01 03:54] LABS: GFR ESTIMATED > 60
[2021-02-01 03:55] LABS: BUN/CREATININE RATIO 13
[2021-02-01 04:00] VITALS: BP 132/73
[2021-02-01] MEDS: NS IV 1000 ML 1,000 ML IV SCH (06:29)
[2021-02-01 08:13] VITALS: BP 116/77
[2021-02-01] MEDS: ENOXAPARIN 40 MG/0.4 ML (LOVENOX) SYR SC SCH (08:15)
[2021-02-01] MEDS: NICOTINE 21 MG (NICODERM) PATCH TD SCH (08:15)
[2021-02-01] MEDS: NICOTINE PATCH REMOVAL TP SCH (08:16)
[2021-02-01] MEDS: PANTOPRAZOLE 40 MG (PROTONIX) TAB PO SCH (08:16)
[2021-02-01] MEDS: SENNA W/DOCUSATE (SENOKOT S) TABLET PO SCH (08:16)
[2021-02-01] MEDS ORDERED: ASPIRIN 81 MG CHEW (CHILDREN'S ASA) PO SCH (09:00)
[2021-02-01] MEDS ORDERED: CLOPIDOGREL 75 MG (PLAVIX) TABLET PO SCH (09:00)
[2021-02-01] MEDS ORDERED: NICO1PAT34 TD (10:54)
--- NOTE | 2021-02-01 10:55 | Discharge Summary ---
Discharge Summary Hospital Course Was the Problem List Reviewed?: Yes Problems/Dx: (1) NSTEMI (non-ST elevated myocardial infarction) (2) Unstable angina (3) LAD stenosis (4) S/P coronary artery stent placement (5) Chest pain Status: Acute Qualifiers: Qualified Codes: R07.9 - Chest pain, unspecified (6) Smoker Status: Chronic Hospital Course Date of Admission: Jan 30, 2021 at 11:49 Admission Diagnosis : Family Physician/Provider: Alberto Huerta MD Date of Discharge: 02/01/21 Discharge Diagnosis: NSTEMI, s/p stent in LAD on cath, smoker Hospital Course: Short course after admitted for CP and elevated troponin and was taken to clinical laboratory aides teacher and stent placed in LAD. SMoking cessation counseled. Labs and Pending Lab Test: Laboratory Tests 02/01/21 03:00: White Blood Count 11.9H, Red Blood Count 3.94, Hemoglobin 12.1, Hematocrit 37, Mean Corpuscular Volume 93, Mean Corpuscular Hemoglobin 31, Mean Corpuscular Hemoglobin Concent 33, Red Cell Distribution Width 13.2, Platelet Count 301, Mean Platelet Volume 10.9, Immature Granulocyte % (Auto) 0, Neutrophils (%) (Auto) 65, Lymphocytes (%) (Auto) 24, Monocytes (%) (Auto) 6, Eosinophils (%) (Auto) 4, Basophils (%) (Auto) 1, Neutrophils # (Auto) 7.8, Lymphocytes # (Auto) 2.8, Monocytes # (Auto) 0.7, Eosinophils # (Auto) 0.5H, Basophils # (Auto) 0.1, Immature Granulocyte # (Auto) 0.0, Sodium Level 136, Potassium Level 4.0, Chloride Level 108H, Carbon Dioxide Level 19L, Anion Gap 9, Blood Urea Nitrogen 8, Creatinine 0.60, Estimat Glomerular Filtration Rate > 60, BUN/Creatinine Ratio 13, Glucose Level 91, Calcium Level 8.2L Home Meds Active Nicoderm Cq (Nicotine) 1 Each Patch.td24 21 Mg TD DAILY@0900 Children's Aspirin (Aspirin) 81 Mg Tab.chew 81 Mg PO DAILY Metoprolol Succinate 25 Mg Tab.er.24h 25 Mg PO DAILY Atorvastatin Calcium 80 Mg Tablet 80 Mg PO HS Clopidogrel (Clopidogrel Bisulfate) 75 Mg Tablet 75 Mg PO DAILY Reported Zyrtec (Cetirizine HCl) 10 Mg Tablet 10 Mg PO DAILY PRN Ibuprofen 200 Mg Tablet 600 Mg PO Q8H PRN Tylenol Extra Strength (Acetaminophen) 500 Mg Tablet 1,000 Mg PO Q6H PRN Azithromycin 250 Mg Tablet 250 Mg PO HS FILLED 01-28-2021 #6/5 DAY SUPPLY Proventil Hfa (Albuterol Sulfate) 6.7 Gm Hfa.aer.ad 2 Puff INH Q6H PRN Assessment/Pt Instructions [facility] 1 week Discharge Planning: <30 minutes discharge planning Discharge Instructions Discharge Diet: Cardiac Diet Activity as Tolerated: Yes Discharge Physical Examination Vital Signs Vital Signs Date Time Temp Pulse Resp B/P (MAP) Pulse Ox O2 Delivery O2 Flow Rate FiO2 02/01/21 08:16 36.4 02/01/21 08:13 87 16 116/77 (90) 96 Room Air General Appearance: No Apparent Distress, WD/WN, Chronically ill, Obese Respiratory: Lungs Clear Cardiovascular: Regular Rate, Rhythm Neurologic/Psychiatric: Alert, Oriented x3, No Motor/Sensory Deficits, Normal Mood/Affect Allergies: Coded Allergies: No Known Drug Allergies (Verified , 02/20/19) Discharge Summary Date of Admission Jan 30, 2021 at 11:49 Date of Discharge Discharge Date: Feb 01, 2021 Admission Diagnosis Unstable angina with elevated troponin Smoker Discharge Diagnosis ICU Monitor closely (1) NSTEMI (non-ST elevated myocardial infarction) (2) Unstable angina (3) LAD stenosis (4) S/P coronary artery stent placement (5) Chest pain Status: Acute Qualifiers: Qualified Codes: R07.9 - Chest pain, unspecified (6) Smoker Status: Chronic Clinical Quality Measures AMI/AHF: ASA po Prior to arrival: YOON Dhaliwal DO Feb 01, 2021 10:55
[2021-02-01 11:07] VITALS: BP 131/79
--- NOTE | 2021-02-01 20:45 | Cardiology Progress Note ---
Cardiology SOAP Progress Note Subjective: no chest pain Objective: I&O/Vital Signs 02/01/21 02/01/21 02/01/21 02/01/21 11:07 12:09 13:00 15:52 Temp 36.8 36.8 Pulse 87 74 Resp 16 B/P (MAP) 131/79 (96) Pulse Ox 98 O2 Delivery Room Air 02/01/21 00:00 Intake Total 540 ml Output Total 850 ml Balance -310 ml Weight (Pounds): 196 Weight (Ounces): 0.0 Weight (Calculated Kilograms): 88.845154 Constitutional: AAO x 3, well-developed, well-nourished Respiratory: No accessory muscle use, No respiratory distress; chest expansion is symmetric, chest is bilaterally symmetric, rhonchi (exp), other Cardiovascular: regular rate-rhythm; No JVD; S1 and S2 Gastrointestional: No tender; soft, round Extremities: no lower extremity edema bilateral Neurologic/Psychiatric: grossly intact (moves all extremities) Skin: No rash on exposed areas, No ulcerations on exposed areas Results/Procedures: Labs Laboratory Tests 02/01/21 03:00: White Blood Count 11.9H, Red Blood Count 3.94, Hemoglobin 12.1, Hematocrit 37, Mean Corpuscular Volume 93, Mean Corpuscular Hemoglobin 31, Mean Corpuscular Hemoglobin Concent 33, Red Cell Distribution Width 13.2, Platelet Count 301, Mean Platelet Volume 10.9, Immature Granulocyte % (Auto) 0, Neutrophils (%) (Auto) 65, Lymphocytes (%) (Auto) 24, Monocytes (%) (Auto) 6, Eosinophils (%) (Auto) 4, Basophils (%) (Auto) 1, Neutrophils # (Auto) 7.8, Lymphocytes # (Auto) 2.8, Monocytes # (Auto) 0.7, Eosinophils # (Auto) 0.5H, Basophils # (Auto) 0.1, Immature Granulocyte # (Auto) 0.0, Sodium Level 136, Potassium Level 4.0, Chloride Level 108H, Carbon Dioxide Level 19L, Anion Gap 9, Blood Urea Nitrogen 8, Creatinine 0.60, Estimat Glomerular Filtration Rate > 60, BUN/Creatinine Ratio 13, Glucose Level 91, Calcium Level 8.2L A/P: Assessment/Dx: nstemi/Chest pain, s/p PCI, active smoking Plan: Discussed at length with the patient and educated about compliance with DAPT. Patient agrees and will be compliant. PCI to the pLAD by Dr Jean-Baptiste with [facility]. Echo shows normal LVEF. smoking cessation was strongly recommended. Thank you for your consultation. Please call me if you have any questions. Nuvia Villalobos MD, FACP, FACC, FSCAI, FHRS, CCDS Interventional Cardiology Cardiac Electrophysiology Vascular Medicine and Endovascular Interventions Clinical Quality Measures AMI/AHF: ASA po Prior to arrival: Johanny Corona MD Feb 01, 2021 20:45
--- NOTE | 2021-02-07 11:10 | Conscious Sedation/ASA ---
YAKOV HODGE 02/07/21 1110: Conscious Sedation Pre-Proced ASA Score For ASA 3 and 4: Consider anesthesia and medical clearance. Also, for patients with a history of failed moderate sedation consider anesthesia. Airway Lungs Heart ASA score ASA 1: a normal healthy patient ASA 2: a patient with a mild systemic disease (mid diabetes, controlled hypertension, obesity ASA 3: a patient with a severe systemic disease that limits activity (angina, COPD, prior Myocardial infarction) ASA 4: a patient with an incapacitating disease that is a constant threat to life (CHF, renal failure) ASA 5: a moribund patient not expected to survive 24 hrs. (ruptured aneurysm) ASA 6: a declared brain- patient whose organs are being harvested. For emergent operations, add the letter E after the classification Sedation Plan The patient is an appropriate candidate to undergo the planned procedure, sedation, and anesthesia. The patient immediately re-assessed prior to indication. RASHAWN HOLGUIN MD [facility] 02/19/21 1642: Conscious Sedation Pre-Proced Time 16:42 ASA Score 3 Mallampati Classification Grade 2 Sedation Plan Analgesia, Amnesia, Plan communicated to team members, Discussed options with patient/fam, Discussed risks with patient/fam YAKOV HODGE Feb 07, 2021 11:10 RASHAWN HOLGUIN MD [facility] Feb 19, 2021 16:42
== END 2021-02-01 16:53 | disposition home or self-care (01) ==
LOC: EDUNIT# 10:16 → ER 10:18 → CSD 11:49 → UNDOADMOB 11:49 → CATH 12:45 → CSD 12:45 → ICU 01-31 10:16 → CATH 02-01 16:53 → UNDODISOB 02-01 16:53
PROVIDERS: ATTEND Internal Medicine
DX: I25.110 Atherosclerotic heart disease of native coronary artery with unstable angina pectoris (principal); G43.909 Migraine, unspecified, not intractable, without status migrainosus; I10 Essential (primary) hypertension; E87.6 Hypokalemia; I21.4 Non-ST elevation (NSTEMI) myocardial infarction; N39.0 Urinary tract infection, site not specified; G89.29 Other chronic pain; M54.9 Dorsalgia, unspecified; R74.8 Abnormal levels of other serum enzymes; F17.210 Nicotine dependence, cigarettes, uncomplicated; F32.9 Major depressive disorder, single episode, unspecified; F41.9 Anxiety disorder, unspecified; Z95.5 Presence of coronary angioplasty implant and graft; Z20.822 Contact with and (suspected) exposure to COVID-19; Z79.899 Other long term (current) drug therapy; Z79.891 Long term (current) use of opiate analgesic; Z82.61 Family history of arthritis; Z80.0 Family history of malignant neoplasm of digestive organs; Z83.3 Family history of diabetes mellitus
CPT/HCPCS: 71045; 80048; 80053 ×2; 80061; 83735; 83874; 84484; 84703; 85025 ×3; 85027; 85379; 85610; 85652; 85730; 86141; 93005 ×3; 93041; 93306; 93458; 96374; 99284; C1725; C1760; C1769; C1874; C1887; C1894 ×2; C9600; G0378; U0002; 36415; 87635

== ENCOUNTER 2021-04-16 18:24 | Emergency (ER) | payer SELFPAY ==
[~2021-04-16] VITALS: Ht 160 cm; Wt 86.0 kg
[~2021-04-16 18:24] MED LIST changes: +ACET-2267 PO; +ALBU6.7H8 INH; +ASPI81TA64 PO; +ATOR80TA76 PO; +CETI10TA49 PO; +CLOP75TA28 PO; +IBUP-2473 PO; +MTP25TSR PO; +NICO1PAT34 TD
[2021-04-16] MEDS ORDERED: ONDANSETRON 4 MG/2 ML (SDV) Z0FRAN IVP STA (18:35)
--- NOTE | 2021-04-16 18:43 | ED Chest Pain ---
General Chief Complaint: Chest Pain Stated Complaint: CHEST PAIN Source: patient History of Present Illness Date Seen by Provider: Apr 16, 2021 Time Seen by Provider: 18:25 Initial Comments 35-year-old female presenting with complaints of chest pain that is under her left breast. She states this feels similar to when she had chest pains in January and had a stent placed. She has pain going into her back. She has nausea and shortness of breath with this. She states this came on just that she was getting to work around 1530 this afternoon and has been constant since onset. She has not taken anything for pain or discomfort because she was at work when this started. She states she has been working a lot lately and been under extra stress. She has been taking all of her regular medicines since having the stents placed. She has some nausea as well as shortness of breath. Her pain goes through to her back and feels similar to when she had the stents placed other than at that time it was worse and went into her arm as well. She rates her pain 7 out of 10. Timing/Duration: 1-3 hours Severity/Quality: moderate, pressure Location: other (under left breast) Radiation: back Activities at Onset: other (just got to work and has been working a lot lately.) Prior CP/Workup: cardiac cath, echocardiography, other (sent placed January 2021 for similar pain) ASA po SHERIFF'S DETECTIVE: No NTG SL SHERIFF'S DETECTIVE: No Associated Symptoms: No abdominal pain; back pain; No diaphoresis, No dizziness, No edema; fatigue; No fever/chills, No headache, No heartburn; nausea/vomiting; No rash; shortness of breath; No swelling/lump in chest, No syncope, No weakness Allergies and Home Medications Allergies Coded Allergies: No Known Drug Allergies (Verified , 02/20/19) Home Medications Acetaminophen 500 Mg Tablet, 1,000 MG PO Q6H PRN for PAIN-MILD (1-4), (Reported) Albuterol Sulfate 6.7 Gm Hfa.aer.ad, 2 PUFF INH Q6H PRN for SHORTNESS OF BREATH, (Reported) Aspirin 81 Mg Tab.chew, 81 MG PO DAILY Prescribed by: YEN SIPVEY on 01/31/21 1550 Atorvastatin Calcium 80 Mg Tablet, 80 MG PO HS Prescribed by: YEN SPIVEY on 01/31/21 1550 Cetirizine HCl 10 Mg Tablet, 10 MG PO DAILY PRN for ALLERGY SYMPTOMS, (Reported) Clopidogrel Bisulfate 75 Mg Tablet, 75 MG PO DAILY Prescribed by: YEN SPIVEY on 01/31/21 1550 Ibuprofen 200 Mg Tablet, 600 MG PO Q8H PRN for PAIN-MILD (1-4), (Reported) Metoprolol Succinate 25 Mg Tab.er.24h, 25 MG PO DAILY Prescribed by: YEN SPIVEY on 01/31/21 1550 Nicotine 1 Each Patch.td24, 21 MG TD DAILY@0900 Prescribed by: YOON MAHER on 02/01/21 1054 Patient Home Medication List Home Medication List Reviewed: Yes Review of Systems Review of Systems Constitutional: No chills, No fever EENTM: No Symptoms Reported Respiratory: See HPI Cardiovascular: See HPI Gastrointestinal: See HPI 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: No Symptoms Reported Musculoskeletal: no symptoms reported Skin: no symptoms reported Psychiatric/Neurological: Anxiety Endocrine: No Symptoms Reported Hematologic/Lymphatic: Easy Bleeding (On Plavix), Easy Bruising (On Plavix) Past Muqxmrc-Fgryvn-Wtosld Hx Past Med/Social Hx: Reviewed Nursing Past Med/Soc Hx Patient Social History Drug of Choice: Marijuana Type Used: Cigarettes 2nd Hand Smoke Exposure: No Recent Hopitalizations: No Immunizations Up To Date Tetanus Booster (TDap): Less than 5yrs PED Vaccines UTD: Yes Seasonal Allergies Seasonal Allergies: No Past Medical History Surgeries: Yes Abdominal, Section, Gallbladder Respiratory: No Currently Using CPAP: No Currently Using BIPAP: No Cardiac: No Neurological: Yes Headaches /Migraines 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 Disorders: No 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 LAYER OFF History: IUD 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: No Gastrointestinal: Yes Diverticulosis Musculoskeletal: No Endocrine: No HEENT: No Loss of Vision: Denies Hearing Impairment: Denies Cancer: No Psychosocial: Yes Anxiety, Depression Integumentary: No Blood Disorders: No Adverse Reaction/Blood Tranf: No Family Medical History Arthritis 19 MOTHER GRANDMA-MATERAL Colon cancer GRANDP-MATERANL Completed stroke 19 FATHER Congenital disease 19 FATHER Congenital heart disease 19 FATHER Diabetes mellitus 19 FATHER GRANDMA-MATERAL Hypercholesterolemia Myocardial infarction 19 FATHER GRANDP-MATERANL Heart Disease, Cancer, Diabetes Physical Exam Vital Signs Vital Signs - First Documented 04/16/21 18:26 Temp 36.1 Pulse 94 Resp 15 B/P (MAP) 117/94 (102) Pulse Ox 97 O2 Delivery Room Air Capillary Refill : Height, Weight, BMI Height: 5'5.00" Weight: 196lbs. 0.0oz. 88.925888px; 33.59 BMI Method:Stated General Appearance: WD/WN, Anxious, Mild Distress HEENT: PERRL/EOMI, Pharynx Normal Neck: Full Range of Motion, Normal Inspection, Non Tender, Supple Respiratory: Chest Non Tender, Lungs Clear, Normal Breath Sounds, No Accessory Muscle Use, No Respiratory Distress Cardiovascular: Regular Rate, Rhythm, Normal Peripheral Pulses Gastrointestinal: Normal Bowel Sounds, No Pulsatile Mass, Non Tender, Soft Rectal: Deferred Extremity: Normal Capillary Refill, Normal Inspection, Non Tender, No Calf Tenderness, No Pedal Edema Neurologic/Psychiatric: Alert, Oriented x3, coil binder II-XII Norm as Tested Skin: Normal Color, Warm/Dry Images 1 - Reports pain in the left breast radiating to her back. Feels similar to when she had stents placed in January Progress/Results/Core Measures Results/Orders Lab Results Laboratory Tests Test 04/16/21 18:33 04/16/21 20:21 Range/Units White Blood Count 10.5 4.3-11.0 10^3/uL Red Blood Count 4.26 L 4.35-5.85 10^6/uL Hemoglobin 13.2 11.5-16.0 G/DL Hematocrit 39 35-52 % Mean Corpuscular Volume 92 80-99 FL Mean Corpuscular Hemoglobin 31 25-34 PG Mean Corpuscular Hemoglobin Concent 34 32-36 G/DL Red Cell Distribution Width 13.2 10.0-14.5 % Platelet Count 372 130-400 10^3/uL Mean Platelet Volume 10.4 7.4-10.4 FL Immature Granulocyte % (Auto) 0 % Neutrophils (%) (Auto) 53 42-75 % Lymphocytes (%) (Auto) 32 12-44 % Monocytes (%) (Auto) 7 0-12 % Eosinophils (%) (Auto) 7 0-10 % Basophils (%) (Auto) 1 0-10 % Neutrophils # (Auto) 5.6 1.8-7.8 X 10^3 Lymphocytes # (Auto) 3.3 1.0-4.0 X 10^3 Monocytes # (Auto) 0.7 0.0-1.0 X 10^3 Eosinophils # (Auto) 0.7 H 0.0-0.3 10^3/uL Basophils # (Auto) 0.1 0.0-0.1 10^3/uL Immature Granulocyte # (Auto) 0.0 0.0-0.1 10^3/uL Prothrombin Time 13.5 12.2-14.7 SEC INR Comment 1.0 0.8-1.4 Activated Partial Thromboplast Time 28 24-35 SEC Sodium Level 138 135-145 MMOL/L Potassium Level 4.2 3.6-5.0 MMOL/L Chloride Level 106 98-107 MMOL/L Carbon Dioxide Level 23 21-32 MMOL/L Anion Gap 9 5-14 MMOL/L Blood Urea Nitrogen 10 7-18 MG/DL Creatinine 0.82 0.60-1.30 MG/DL Estimat Glomerular Filtration Rate > 60 BUN/Creatinine Ratio 12 Glucose Level 106 H 70-105 MG/DL Calcium Level 9.0 8.5-10.1 MG/DL Corrected Calcium 9.0 8.5-10.1 MG/DL Magnesium Level 2.1 1.6-2.4 MG/DL Total Bilirubin 0.2 0.1-1.0 MG/DL Aspartate Amino Transf (AST/SGOT) 12 5-34 U/L Alanine Aminotransferase (ALT/SGPT) 19 0-55 U/L Alkaline Phosphatase 78 40-136 U/L Troponin I < 0.30 < 0.30 <0.30 NG/ML Pro-B-Type Natriuretic Peptide 39.5 <75.0 PG/ML Total Protein 6.9 6.4-8.2 GM/DL Albumin 4.0 3.2-4.5 GM/DL Lipase 21 8-78 U/L My Orders Orders - EMILIE STOREY MD Cbc With Automated Diff (04/16/21 18:34) Magnesium (04/16/21 18:34) Chest 1 View Ap/Pa Only (04/16/21 18:34) Ekg Tracing (04/16/21 18:34) Comprehensive Metabolic Panel (04/16/21 18:34) Protime With Inr (04/16/21 18:34) Partial Thromboplastin Time (04/16/21 18:34) O2 (04/16/21 18:34) Monitor-Rhythm Ecg Trace Only (04/16/21 18:34) Aspirin Chewable Tablet (Baby Aspirin Ch (04/16/21 18:45) Nitroglycerin 0.4 Mg Btl 25's (Nitrostat (04/16/21 18:45) Ed Iv/Invasive Line Start (04/16/21 18:34) Lipase (04/16/21 18:34) Troponin I Fs (04/16/21 18:34) Probnp Fs (04/16/21 18:34) Morphine Injection (Morphine Injection (04/16/21 18:45) Ondansetron Injection (Zofran Injectio (04/16/21 18:35) Morphine Injection (Morphine Injection (04/16/21 19:49) Troponin I Fs (04/16/21 20:15) Medications Given in ED Current Medications Medications Dose Ordered Sig/Marnie Route Start Time Stop Time Status Last Admin Dose Admin Aspirin 324 mg ONCE ONCE PO 04/16/21 18:45 04/16/21 18:46 DC 04/16/21 19:06 324 MG Morphine Sulfate 2 mg ONCE ONCE IVP 04/16/21 18:45 04/16/21 18:46 DC 04/16/21 19:06 2 MG Nitroglycerin 0.4 mg UD PRN SL 04/16/21 18:45 04/16/21 21:28 DC 04/16/21 19:06 0.4 MG Vital Signs/I&O 04/16/21 04/16/21 18:26 21:26 Temp 36.1 Pulse 94 84 Resp 15 17 B/P (MAP) 117/94 (102) 104/56 Pulse Ox 97 100 O2 Delivery Room Air Room Air Progress Progress Note #1: Progress Note Obtain basic labs as well as electrocardiogram, chest x-ray and placed on residential monitor. Since she has not taken any before coming in we will give aspirin nitroglycerin. For severe pain give morphine. Given a dose of Zofran to help with her nausea. Differential diagnosis includes blocked artery with stenosis of stent, myocardial infarction, stress, anxiety, gastritis, GERD, pneumonia Progress Note #2: Progress Note Labs do not show any acute significant malady. Her troponin is elevated and is less than 0.3. Her chest x-ray does not show any acute significant normality. Her electrocardiogram is stable from January and does not show acute ST elevation. Considering her symptoms have been going on since 1529 this is not showing any damage to heart tissue at this point. We will see if we can get her pain-free and repeat enzymes 2 hours. If she is pain-free and no change in the enzymes will have her follow-up through the clinic. If she continues to have pain or has change in her enzymes will need to admit for possible catheterization to evaluate for stent stenosis. Progress Note #3: Progress Note On recheck she states she has 1-2 out of 10 discomfort and is more anxious and stressed now than truly having pain. Will repeat Morphine while waiting for time to be able to repeat troponin. Progress Note #4: Progress Note repeat troponin still negative. Will discharge pt to home and have her take it easy and rest. Call Dr. Jean-Baptiste and cardiology for follow up as they may want to see her sooner if she continues to have pain and symptoms. Pt admits that she has been working a lot of long hours and stressed with work and home so she feels that is contributing to her symptoms. Since she had pain for over 3 hours and negative troponin x 2 that seems reasonable, more so than an occluded stent. [place] Slabs Sawyer on follow up and return precautions. Stress importance of return immediately for worsening symptoms as she would need to go to have cardiology perform testing and may repeat cath. Initial ECG Impression Date: Apr 16, 2021 Initial ECG Impression Time: 18:23 Initial ECG Rate: 89 Initial ECG Rhythm: Normal Sinus Initial ECG Comparisson: Unchanged Comment Normal sinus rhythm with heart rate 89 bpm. MI interval 143 ms. There is borderline T wave abnormalities in the anterior leads. There is T wave flattening in V2 through V4. QT interval 343 ms with a QTc interval 418 ms. There is no acute ST elevation. This appears similar to tracings from January 2021 Diagnostic Imaging Diagonstic Imaging: Xray Plain Films/CT/US/NM/MRI: chest Comments [facility]. [place], [place] NAME: MARCUS PADILLA [facility] REC#: [id number] PT STATUS: REG ER : 1985 PHYSICIAN: EMILIE STOREY MD ADMIT DATE: 04/16/21/ER FS Signed Date of Exam:04/16/21 CHEST 1 VIEW AP/PA ONLY INDICATION: Chest pain. Portable chest at 6:26 p.m. Heart size and pulmonary vascularity are normal. Lungs are clear. There are no effusions or pneumothoraces. IMPRESSION: Negative chest. Dictated by: Dictated on workstation # [id number] Dict: 04/16/211840 Trans: 04/16/211855 [facility] [id number] Interpreted by: PER COSTA MD Electronically signed by: PER COSTA MD 04/16/211855 Reviewed: Reviewed by Me Departure Impression Primary Impression: Chest pain Qualified Codes: R07.9 - Chest pain, unspecified Additional Impression: Stress Disposition: HOME, SELF-CARE Condition: Improved Departure-Patient Inst. Decision time for Depature: 21:09 Referrals: RASHAWN JEAN-BAPTISTE MD FACP FAC CCDS SELFERIC MD (PCP/Family) Primary Care Physician Patient Instructions: Chest Pain, Adult ED, Stress, Tips to Help You Worry Less Add. Discharge Instructions: Continue on your regular medicines. Follow up with Dr. Jean-Baptiste and call his office in the morning to see if they want to see you sooner than your next scheduled appointment. Return or seek care immediately if you have worsening pain or new symptoms All discharge instructions reviewed with patient and/or family. Voiced unders tanding. Work/School Note: Work Release Form Date Seen in the Emergency Department: Apr 16, 2021 Return to Work: Apr 19, 2021 Restrictions: No Restrictions EMILIE STOREY MD Apr 16, 2021 18:43
[2021-04-16 18:44] LABS: BASOPHILS # (AUTO) 0.1 10^3/uL (0.0-0.1); BASOPHILS % (AUTO) 1 % (0-10); EOSINOPHILS # (AUTO) 0.7 10^3/uL (0.0-0.3); EOSINOPHILS % (AUTO) 7 % (0-10); HEMATOCRIT 39 % (35-52); HEMOGLOBIN 13.2 G/DL (11.5-16.0); LYMPHOCYTES # (AUTO) 3.3 X 10^3 (1.0-4.0); LYMPHOCYTES % (AUTO) 32 % (12-44); MEAN CORPUSCULAR HEMOGLOBIN 31 PG (25-34); MEAN CORPUSCULAR HGB CONC 34 G/DL (32-36); MEAN CORPUSCULAR VOLUME 92 FL (80-99); MEAN PLATELET VOLUME 10.4 FL (7.4-10.4); MONOCYTES # (AUTO) 0.7 X 10^3 (0.0-1.0); MONOCYTES % (AUTO) 7 % (0-12); NEUTROPHILS # (AUTO) 5.6 X 10^3 (1.8-7.8); NEUTROPHILS % (AUTO) 53 % (42-75); PLATELET COUNT 372 10^3/uL (130-400); WHITE BLOOD COUNT 10.5 10^3/uL (4.3-11.0)
[2021-04-16] MEDS ORDERED: ASPIRIN 81 MG CHEW (CHILDREN'S ASA) PO ONE (18:45)
[2021-04-16] MEDS ORDERED: NITROGLYCERIN 0.4 MG SL TABS BTL 25'S SL PRN (18:45)
[2021-04-16] MEDS ORDERED: morphine INJ 10 MG/ML 1ML (SYR OR VIAL) IVP ONE (18:45)
[2021-04-16 19:00] LABS: PROTHROMBIN TIME PATIENT 13.5 SEC (12.2-14.7)
[2021-04-16 19:01] LABS: ALANINE AMINOTRANSFERASE 19 U/L (0-55); ALKALINE PHOSPHATASE 78 U/L (40-136); BILIRUBIN,TOTAL 0.2 MG/DL (0.1-1.0); BUN/CREATININE RATIO 12; CARBON DIOXIDE 23 MMOL/L (21-32); CHLORIDE 106 MMOL/L (98-107); CREATININE SERUM 0.82 MG/DL (0.60-1.30); GFR ESTIMATED > 60; GLUCOSE 106 MG/DL (70-105); LIPASE 21 U/L (8-78); MAGNESIUM 2.1 MG/DL (1.6-2.4); POTASSIUM 4.2 MMOL/L (3.6-5.0); SODIUM 138 MMOL/L (135-145); TOTAL PROTEIN 6.9 GM/DL (6.4-8.2)
[2021-04-16] MEDS ORDERED: morphine INJ 10 MG/ML 1ML (SYR OR VIAL) IVP STA (19:49)
[2021-04-16 21:26] VITALS: BP 104/56
== END 2021-04-16 21:26 | disposition home or self-care (01) ==
LOC: EDUNIT# 18:24 → ER FS 18:27
DX: R07.9 Chest pain, unspecified (principal); F43.9 Reaction to severe stress, unspecified; Z79.82 Long term (current) use of aspirin
CPT/HCPCS: 36415; 71045; 80053; 83690; 83735; 83880; 84484; 85025; 85610; 85730; 93005; 93041

== ENCOUNTER 2021-06-12 16:22 | Emergency (ER) | payer SELFPAY ==
[~2021-06-12] VITALS: Ht 160 cm; Wt 90.3 kg
[~2021-06-12 16:22] MED LIST changes: -SULF1TAB35 PO; +SULF1TAB38 PO
[2021-06-12] MEDS ORDERED: KETOROLAC 30 MG/ML VIAL IVP STA (16:36)
[2021-06-12] MEDS ORDERED: PROCHLORPERAZINE 10 MG/2ML INJ (COMPAZINE) IV ONE (16:45)
[2021-06-12] MEDS ORDERED: LACTATED RINGERS 1,000 ML IV ONE (16:45)
[2021-06-12] MEDS ORDERED: diphenhydrAMINE 50 MG/ML INJ (BENADRYL) IV ONE (16:45)
--- NOTE | 2021-06-12 16:49 | ED Headache ---
General Chief Complaint: Head/Cervical Problems Stated Complaint: MIGRAINE Source: patient History of Present Illness Date Seen by Provider: Jun 12, 2021 Time Seen by Provider: 16:30 Initial Comments 35-year-old female with past medical history of migraines roughly 2 times per week, CAD, hypertension, hyperlipidemia coming in due to moderate to severe constant headache in the front that started roughly 3 days ago. It was slow in onset and progressed over the past couple days. Took Tylenol and Benadryl with the last dose of Tylenol this morning. This made it minimally better. She states this feels exactly like her typical migraines. She denies any fever or neck stiffness associated with this. No numbness, tingling, vision changes, weakness, gait disturbance, or any other concerns. Her LMP was last week and she has an implanted control. Allergies and Home Medications Allergies Coded Allergies: No Known Drug Allergies (Verified , 02/20/19) Home Medications Acetaminophen 500 Mg Tablet, 1,000 MG PO Q6H PRN for PAIN-MILD (1-4), (Reported) Albuterol Sulfate 6.7 Gm Hfa.aer.ad, 2 PUFF INH Q6H PRN for SHORTNESS OF BREATH, (Reported) Aspirin 81 Mg Tab.chew, 81 MG PO DAILY Prescribed by: YEN SPIVEY on 01/31/21 1550 Atorvastatin Calcium 80 Mg Tablet, 80 MG PO HS Prescribed by: YEN SPIVEY on 01/31/21 1550 Cetirizine HCl 10 Mg Tablet, 10 MG PO DAILY PRN for ALLERGY SYMPTOMS, (Reported) Clopidogrel Bisulfate 75 Mg Tablet, 75 MG PO DAILY Prescribed by: YEN SPIVEY on 01/31/21 1550 Ibuprofen 200 Mg Tablet, 600 MG PO Q8H PRN for PAIN-MILD (1-4), (Reported) Metoprolol Succinate 25 Mg Tab.er.24h, 25 MG PO DAILY Prescribed by: YEN SPIVEY on 01/31/21 1550 Nicotine 1 Each Patch.td24, 21 MG TD DAILY@0900 Prescribed by: YOON MAHER on 02/01/21 1054 Patient Home Medication List Home Medication List Reviewed: Yes Review of Systems Review of Systems Constitutional: No fever Eyes: Denies Pain Ears, Nose, Mouth, Throat: denies ear pain Respiratory: No cough Cardiovascular: No chest pain Gastrointestinal: No abdominal pain 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: No frequency Musculoskeletal: No muscle pain Skin: No rash Psychiatric/Neurological: Headache; Denies Numbness, Denies Paresthesia, Denies Weakness All Other Systems Reviewed Negative Unless Noted: Yes Past Oimduro-Ylukjq-Uayplg Hx Patient Social History Tobacco Use?: Yes Tobacco type used: Cigarettes Smoking Status: Current Everyday Smoker Use of E-Cig and/or Vaping dev: No Substance use?: No Alcohol Use?: No Pt feels they are or have been: No Immunizations Up To Date Tetanus Booster (TDap): Less than 5yrs PED Vaccines UTD: Yes First/Initial COVID19 Vaccinat: 06/09/2021 Seasonal Allergies Seasonal Allergies: No Past Medical History Surgeries: Yes Abdominal, Section, Coronary Stent, Gallbladder Respiratory: No Currently Using CPAP: No Currently Using BIPAP: No Cardiac: Yes Coronary Artery Disease Neurological: Yes Headaches /Migraines 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 Disorders: No 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: No Gastrointestinal: Yes Diverticulosis Musculoskeletal: No Endocrine: No HEENT: No Loss of Vision: Denies Hearing Impairment: Denies Cancer: No Psychosocial: Yes Anxiety, Depression Integumentary: No Blood Disorders: No Adverse Reaction/Blood Tranf: No Family Medical History Arthritis 19 MOTHER GRANDMA-MATERAL Colon cancer GRANDP-MATERANL Completed stroke 19 FATHER Congenital disease 19 FATHER Congenital heart disease 19 FATHER Diabetes mellitus 19 FATHER GRANDMA-MATERAL Hypercholesterolemia Myocardial infarction 19 FATHER GRANDP-MATERANL Heart Disease, Cancer, Diabetes Physical Exam Vital Signs Vital Signs - First Documented 06/12/21 16:26 Temp 37.3 Pulse 81 Resp 16 B/P (MAP) 127/77 (94) Pulse Ox 99 O2 Delivery Room Air Capillary Refill : Height, Weight, BMI Height: 5'5.00" Weight: 196lbs. 0.0oz. 88.062587xb; 33.00 BMI Method:Stated General Appearance: WD/WN, no apparent distress HEENT: PERRL/EOMI, normal ENT inspection, pharynx normal Neck: non-tender, full range of motion, supple Cardiovascular: regular rate, rhythm, no edema, no gallop, no murmur Respiratory: chest non-tender, lungs clear, normal breath sounds, no respiratory distress, no accessory muscle use Gastrointestinal: normal bowel sounds, non tender, soft; No distended, No guarding, No rebound Back: normal inspection, no CVA tenderness, no vertebral tenderness Extremities: normal range of motion, non-tender, normal inspection, no calf tenderness Psychiatric: alert, oriented x 3 Crainal Nerves: normal hearing, normal speech, PERRL; No facial asymmetry, No facial droop, No facial paresthesias, No facial weakness, No hearing deficit (R), No hearing deficit (L), No tongue deviation to R, No tongue deviation to L Coordination/Gait: normal finger to nose, normal gait Motor/Sensory: no motor deficit, no sensory deficit Skin: normal color, warm/dry; No rash Lymphatic: no adenopathy Progress/Results/Core Measures Results/Orders My Orders Orders - CHERIE CERVANTES MD Ed Iv/Invasive Line Start (06/12/21 16:36) Lactated Ringers (Lr 1000 Ml Iv Solution (06/12/21 16:45) Ketorolac Injection (Toradol Injection) (06/12/21 16:36) Prochlorperazine Injection (Compazine In (06/12/21 16:45) Diphenhydramine Injection (Benadryl Inje (06/12/21 16:45) Medications Given in ED Current Medications Medications Dose Ordered Sig/Marnie Route Start Time Stop Time Status Last Admin Dose Admin Diphenhydramine HCl 25 mg ONCE ONCE IV 06/12/21 16:45 06/12/21 16:46 DC 06/12/21 16:59 25 MG Lactated Ringer's 1,000 ml @ 0 mls/hr Q0M ONCE IV 06/12/21 16:45 06/12/21 16:46 DC 06/12/21 16:58 0 MLS/HR Prochlorperazine Edisylate 10 mg ONCE ONCE IV 06/12/21 16:45 06/12/21 16:46 DC 06/12/21 16:59 10 MG Vital Signs/I&O 06/12/21 16:26 Temp 37.3 Pulse 81 Resp 16 B/P (MAP) 127/77 (94) Pulse Ox 99 O2 Delivery Room Air Progress Progress Note : Progress Note 35-year-old female coming in due to headache. ABCs were intact and vitals were stable on presentation. Physical exam reassuring with a GCS of 15 and a completely normal neurological exam. The patient has had a headache for roughly 3 days and it was slow in onset which is reassuring. She states this is the same as her typical headaches. No fever or neck stiffness that would be concerning for meningitis. No vision changes that would be concerning for dural venous sinus thrombosis. No focal weakness or numbness that would make this a complicated migraine versus stroke. Overall her clinical picture appears to be similar to her typical migraine. An IV was placed and she was given a bolus of IV fluids, Benadryl, Toradol, and Compazine to treat her headache. On reassessment after the medications, the patient's headache had completely resolved and she was back to normal. At this point I believe she is stable for discharge. She was sent home with strict return precautions. I discussed with her that she should follow-up with her PCP to potentially on a medication to proactively prevent headaches. Departure Impression Primary Impression: Headache Qualified Codes: R51.9 - Headache, unspecified Disposition: 01 HOME, SELF-CARE Condition: Improved Departure-Patient Inst. Decision time for Depature: 17:47 Referrals: ERIC CALDERON MD (PCP/Family) Primary Care Physician Patient Instructions: Headache, Adult (DC) Add. Discharge Instructions: You were seen in the ER for your headache. You were given medications to improve this. You can take Tylenol and or ibuprofen at home as well as drinking plenty of fluids to help with your headache. Next time you have a headache try taking 1000 mg of Tylenol as well as 600 mg of ibuprofen with a full glass of water. If you have any fever, neck stiffness, weakness, numbness, worsening headache, or any other concerns then please come back to the emergency department. All discharge instructions reviewed with patient and/or family. Voiced understanding. CHERIE CERVANTES MD Jun 12, 2021 16:49
[2021-06-12 17:53] VITALS: BP 125/72
== END 2021-06-12 17:49 | disposition home or self-care (01) ==
LOC: EDUNIT# 16:22 → ER FS 16:23
DX: R51.9 Headache, unspecified (principal); I25.10 Atherosclerotic heart disease of native coronary artery without angina pectoris; I10 Essential (primary) hypertension; F17.210 Nicotine dependence, cigarettes, uncomplicated; Z79.82 Long term (current) use of aspirin; Z79.01 Long term (current) use of anticoagulants; Z79.899 Other long term (current) drug therapy

== ENCOUNTER 2021-06-14 13:32 | Emergency (ER) | payer SELFPAY ==
[~2021-06-14] VITALS: Ht 160 cm; Wt 86.2 kg
[2021-06-14 13:49] LABS: HEMOGLOBIN 12.5 G/DL (11.5-16.0); MEAN CORPUSCULAR HEMOGLOBIN 31 PG (25-34); WHITE BLOOD COUNT 12.6 10^3/uL (4.3-11.0)
[2021-06-14 13:50] LABS: BASOPHILS # (AUTO) 0.1 10^3/uL (0.0-0.1); BASOPHILS % (AUTO) 1 % (0-10); EOSINOPHILS # (AUTO) 0.4 10^3/uL (0.0-0.3); EOSINOPHILS % (AUTO) 3 % (0-10); HEMATOCRIT 37 % (35-52); LYMPHOCYTES # (AUTO) 3.5 X 10^3 (1.0-4.0); LYMPHOCYTES % (AUTO) 28 % (12-44); MEAN CORPUSCULAR HGB CONC 34 G/DL (32-36); MEAN CORPUSCULAR VOLUME 92 FL (80-99); MEAN PLATELET VOLUME 10.5 FL (7.4-10.4); MONOCYTES # (AUTO) 0.8 X 10^3 (0.0-1.0); MONOCYTES % (AUTO) 6 % (0-12); NEUTROPHILS # (AUTO) 7.8 X 10^3 (1.8-7.8); NEUTROPHILS % (AUTO) 62 % (42-75); PLATELET COUNT 350 10^3/uL (130-400)
--- NOTE | 2021-06-14 13:54 | ED Chest Pain ---
General Chief Complaint: Chest Pain Stated Complaint: BACK PAIN/SOA Source: patient Exam Limitations: no limitations History of Present Illness Date Seen by Provider: Jun 14, 2021 Time Seen by Provider: 13:48 Initial Comments 35-year-old female presents 3 hours after onset of sudden pain between her shoulder blades and mild shortness of air. Patient denies any precipitating factor, no injury. She does have a past medical history significant for coronary artery disease and 3 months ago had a stent put in by Dr. Torres in [place]. She is been doing well since then. She takes a baby aspirin daily as well his cholesterol medication. She is a daily smoker. Allergies and Home Medications Allergies Coded Allergies: No Known Drug Allergies (Verified , 02/20/19) Home Medications Acetaminophen 500 Mg Tablet, 1,000 MG PO Q6H PRN for PAIN-MILD (1-4), (Reported) Albuterol Sulfate 6.7 Gm Hfa.aer.ad, 2 PUFF INH Q6H PRN for SHORTNESS OF BREATH, (Reported) Aspirin 81 Mg Tab.chew, 81 MG PO DAILY Prescribed by: YEN SPIVEY on 01/31/21 1550 Atorvastatin Calcium 80 Mg Tablet, 80 MG PO HS Prescribed by: YEN SPIVEY on 01/31/21 1550 Cetirizine HCl 10 Mg Tablet, 10 MG PO DAILY PRN for ALLERGY SYMPTOMS, (Reported) Clopidogrel Bisulfate 75 Mg Tablet, 75 MG PO DAILY Prescribed by: YEN SPIVEY on 01/31/21 1550 Ibuprofen 200 Mg Tablet, 600 MG PO Q8H PRN for PAIN-MILD (1-4), (Reported) Metoprolol Succinate 25 Mg Tab.er.24h, 25 MG PO DAILY Prescribed by: YEN SPIVEY on 01/31/21 1550 Nicotine 1 Each Patch.td24, 21 MG TD DAILY@0900 Prescribed by: YOON MAHER on 02/01/21 1054 Patient Home Medication List Home Medication List Reviewed: Yes Review of Systems Review of Systems Constitutional: No fever, No malaise, No weakness EENTM: No Symptoms Reported Respiratory: Denies Cough; Shortness of Air; Denies Stridor, Denies Wheezing Cardiovascular: Denies Chest Pain, Denies Edema, Denies Lightheadedness, Denies Palpitations, Denies Syncope Gastrointestinal: Denies Abdominal Pain, Denies Diarrhea, Denies Vomiting Musculoskeletal: back pain (between shoulder blades) Skin: No change in color, No rash Psychiatric/Neurological: Denies Headache, Denies Paresthesia Past Hcpydoa-Phuxnc-Abruah Hx Patient Social History Tobacco Use?: Yes Immunizations Up To Date Tetanus Booster (TDap): Less than 5yrs PED Vaccines UTD: Yes Seasonal Allergies Seasonal Allergies: No Past Medical History Surgeries: Yes Abdominal, Section, Coronary Stent, Gallbladder Respiratory: No Currently Using CPAP: No Currently Using BIPAP: No Cardiac: Yes Coronary Artery Disease Neurological: Yes Headaches /Migraines 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 Disorders: No 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: No Gastrointestinal: Yes Diverticulosis Musculoskeletal: No Endocrine: No HEENT: No Loss of Vision: Denies Hearing Impairment: Denies Cancer: No Psychosocial: Yes Anxiety, Depression Integumentary: No Blood Disorders: No Adverse Reaction/Blood Tranf: No Family Medical History Arthritis 19 MOTHER GRANDMA-MATERAL Colon cancer GRANDP-MATERANL Completed stroke 19 FATHER Congenital disease 19 FATHER Congenital heart disease 19 FATHER Diabetes mellitus 19 FATHER GRANDMA-MATERAL Hypercholesterolemia Myocardial infarction 19 FATHER GRANDP-MATERANL Heart Disease, Cancer, Diabetes Physical Exam Vital Signs Vital Signs - First Documented Capillary Refill : Height, Weight, BMI Height: 5'5.00" Weight: 196lbs. 0.0oz. 88.055909ud; 35.00 BMI Method:Stated General Appearance: No Apparent Distress, WD/WN HEENT: Normal ENT Inspection Neck: Non Tender, Supple Respiratory: Chest Non Tender, Lungs Clear, Normal Breath Sounds, No Accessory Muscle Use, No Respiratory Distress Cardiovascular: Regular Rate, Rhythm, No JVD Gastrointestinal: Non Tender, Soft Extremity: Normal Capillary Refill, Normal Inspection, Non Tender Neurologic/Psychiatric: Alert, Oriented x3, No Motor/Sensory Deficits Skin: Normal Color, Warm/Dry Progress/Results/Core Measures Results/Orders Lab Results Laboratory Tests Test 06/14/21 13:42 06/14/21 16:05 Range/Units White Blood Count 12.6 H 4.3-11.0 10^3/uL Red Blood Count 3.99 L 4.35-5.85 10^6/uL Hemoglobin 12.5 11.5-16.0 G/DL Hematocrit 37 35-52 % Mean Corpuscular Volume 92 80-99 FL Mean Corpuscular Hemoglobin 31 25-34 PG Mean Corpuscular Hemoglobin Concent 34 32-36 G/DL Red Cell Distribution Width 13.4 10.0-14.5 % Platelet Count 350 130-400 10^3/uL Mean Platelet Volume 10.5 H 7.4-10.4 FL Immature Granulocyte % (Auto) 0 % Neutrophils (%) (Auto) 62 42-75 % Lymphocytes (%) (Auto) 28 12-44 % Monocytes (%) (Auto) 6 0-12 % Eosinophils (%) (Auto) 3 0-10 % Basophils (%) (Auto) 1 0-10 % Neutrophils # (Auto) 7.8 1.8-7.8 X 10^3 Lymphocytes # (Auto) 3.5 1.0-4.0 X 10^3 Monocytes # (Auto) 0.8 0.0-1.0 X 10^3 Eosinophils # (Auto) 0.4 H 0.0-0.3 10^3/uL Basophils # (Auto) 0.1 0.0-0.1 10^3/uL Immature Granulocyte # (Auto) 0.0 0.0-0.1 10^3/uL D-Dimer 0.17 0.00-0.49 UG/ML Sodium Level 138 135-145 MMOL/L Potassium Level 3.4 L 3.6-5.0 MMOL/L Chloride Level 105 98-107 MMOL/L Carbon Dioxide Level 21 21-32 MMOL/L Anion Gap 12 5-14 MMOL/L Blood Urea Nitrogen 9 7-18 MG/DL Creatinine 0.69 0.60-1.30 MG/DL Estimat Glomerular Filtration Rate 96 BUN/Creatinine Ratio 13 Glucose Level 95 70-105 MG/DL Calcium Level 8.9 8.5-10.1 MG/DL Corrected Calcium 8.9 8.5-10.1 MG/DL Total Bilirubin 0.2 0.1-1.0 MG/DL Aspartate Amino Transf (AST/SGOT) 13 5-34 U/L Alanine Aminotransferase (ALT/SGPT) 23 0-55 U/L Alkaline Phosphatase 67 40-136 U/L Troponin I < 0.30 < 0.30 <0.30 NG/ML Total Protein 7.0 6.4-8.2 GM/DL Albumin 4.0 3.2-4.5 GM/DL My Orders Orders - ROVENSTINE,ANGELES L DO Ed Iv/Invasive Line Start (06/14/21 13:42) Cbc With Automated Diff (06/14/21 13:42) Comprehensive Metabolic Panel (06/14/21 13:42) Troponin I Fs (06/14/21 13:42) Chest 1 View Ap/Pa Only (06/14/21 13:42) Ekg Tracing (06/14/21 13:42) Aspirin Chewable Tablet (Baby Aspirin Ch (06/14/21 14:00) Ns Iv 1000 Ml (Sodium Chloride 0.9%) (06/14/21 14:00) Fibrin Degradation Products (06/14/21 13:52) Troponin I Fs (06/14/21 16:00) Ibuprofen Tablet (Motrin Tablet) (06/14/21 15:45) Medications Given in ED Current Medications Medications Dose Ordered Sig/Marnie Route Start Time Stop Time Status Last Admin Dose Admin Aspirin 324 mg ONCE ONCE PO 06/14/21 14:00 06/14/21 14:01 DC 06/14/21 14:11 324 MG Ibuprofen 800 mg ONCE ONCE PO 06/14/21 15:45 06/14/21 15:46 DC 06/14/21 15:47 800 MG Vital Signs/I&O 06/14/21 06/14/21 13:33 13:33 Temp 36.6 Pulse 105 Resp 20 B/P (MAP) 149/81 (103) Pulse Ox 97 O2 Delivery Room Air Room Air Progress Progress Note : Progress Note Normal ECG with no changes compared to previous from January 2021. Normal troponin x2. Patient having some upper back pain will prescribe muscle relaxer and advised on heat and stretching. She is advised to call her PCP tomorrow for follow-up care Initial ECG Impression Date: Jun 14, 2021 Initial ECG Impression Time: 13:40 Initial ECG Rate: 107 Initial ECG Rhythm: S.Tach Initial ECG Impression: Normal Comment Inferior T wave inversion No change from ECG comparison 01/27/2021 Diagnostic Imaging Diagonstic Imaging: Xray Plain Films/CT/US/NM/MRI: chest Comments Date of Exam:06/14/21 CHEST 1 VIEW AP/PA ONLY INDICATION: Chest pain EXAMINATION: Chest 06/14/2021 COMPARISON: 04/16/2021 FINDINGS: The cardiomediastinal silhouette is unremarkable. The pulmonary vasculature is within normal limits. The lungs and pleural spaces are clear. IMPRESSION: No evidence of an acute cardiopulmonary process. Dictated on workstation # [id number] Dict: 06/14/21 1415 Trans: 06/14/21 1416 [facility] [id number] Interpreted by: CHON GAO MD Electronically signed by: Departure Impression Primary Impression: Acute upper back pain Disposition: 01 HOME, SELF-CARE Condition: Improved Departure-Patient Inst. Decision time for Depature: 17:08 Referrals: ERIC HUERTA MD (PCP/Family) Primary Care Physician Patient Instructions: Upper Back Pain ED Add. Discharge Instructions: Follow up with your PCP, Dr Huerta next week for a re-evaluation. Return to the ER sooner if worse All discharge instructions reviewed with patient and/or family. Voiced understanding. Scripts Cyclobenzaprine HCl (Cyclobenzaprine HCl) 10 Mg Tablet 10 MG PO Q8H PRN for SPASMS, #15 TAB 0 Refills Prov: ANGELES CONTRERAS DO 06/14/21 ANGELES CONTRERAS DO Jun 14, 2021 13:54
[2021-06-14] MEDS ORDERED: NS IV 1000 ML 1,000 ML IV SCH (14:00)
[2021-06-14] MEDS ORDERED: ASPIRIN 81 MG CHEW (CHILDREN'S ASA) PO ONE (14:00)
[2021-06-14 14:10] LABS: ALANINE AMINOTRANSFERASE 23 U/L (0-55); ALKALINE PHOSPHATASE 67 U/L (40-136); BILIRUBIN,TOTAL 0.2 MG/DL (0.1-1.0); BUN/CREATININE RATIO 13; CALCIUM 8.9 MG/DL (8.5-10.1); CARBON DIOXIDE 21 MMOL/L (21-32); CHLORIDE 105 MMOL/L (98-107); CREATININE SERUM 0.69 MG/DL (0.60-1.30); GFR ESTIMATED 96; GLUCOSE 95 MG/DL (70-105); POTASSIUM 3.4 MMOL/L (3.6-5.0); SODIUM 138 MMOL/L (135-145)
--- NOTE | 2021-06-14 14:16 | Diagnostic Imaging Report ---
INDICATION: Chest pain EXAMINATION: Chest 06/14/2021 COMPARISON: 04/16/2021 FINDINGS: The cardiomediastinal silhouette is unremarkable. The pulmonary vasculature is within normal limits. The lungs and pleural spaces are clear. IMPRESSION: No evidence of an acute cardiopulmonary process. Dictated by: Dictated on workstation # [id number]
[2021-06-14] MEDS ORDERED: ONDANSETRON 4 MG/2 ML (SDV) Z0FRAN IVP ONE (15:30)
[2021-06-14] MEDS ORDERED: IBUPROFEN 800 MG (MOTRIN) TAB PO ONE (15:45)
[2021-06-14] MEDS ORDERED: CYCL10TA9 PO (17:09)
[2021-06-14 17:17] VITALS: BP 139/87
== END 2021-06-14 17:17 | disposition home or self-care (01) ==
LOC: EDUNIT# 13:32 → ER FS 13:34
DX: M54.6 Pain in thoracic spine (principal); I25.10 Atherosclerotic heart disease of native coronary artery without angina pectoris; F17.210 Nicotine dependence, cigarettes, uncomplicated; Z79.899 Other long term (current) drug therapy; Z79.82 Long term (current) use of aspirin; Z79.01 Long term (current) use of anticoagulants
CPT/HCPCS: 36415; 71045; 80053; 84484; 85025; 85379; 93005

== ENCOUNTER 2021-07-31 14:57 | Emergency (ER) | payer SELFPAY ==
[~2021-07-31] VITALS: Ht 160 cm; Wt 90.0 kg
--- NOTE | 2021-07-31 15:21 | ED GU-Female ---
General Chief Complaint: - 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 Stated Complaint: RT FLANK PAIN; URINARY DIFFICULTY Nursing Triage Note: PT REPORTS RIGHT SIDED FLANK PAIN THAT STARTED THIS AM AND HAS PROGRESSED THROUGHOUT THE DAY. History of Present Illness Date Seen by Provider: Jul 31, 2021 Time Seen by Provider: 15:18 Initial Comments 35 y/o female presents w R flank pain beginning this morning, constant ever since. Some difficulty, but not painful urination. No Hx of renal stones. No fever, chills, abdominal pain, nausea or vomiting Allergies and Home Medications Allergies Coded Allergies: No Known Drug Allergies (Verified , 02/20/19) Patient Home Medication List Home Medication List Reviewed: Yes Acetaminophen (Tylenol Extra Strength) 500 Mg Tablet, 1,000 MG PO Q6H PRN for PAIN-MILD (1-4), (Reported) Entered as Reported by: FRANK WALLACE on 01/30/21 1443 Albuterol Sulfate (Proventil Hfa) 6.7 Gm Hfa.aer.ad, 2 PUFF INH Q6H PRN for SHORTNESS OF BREATH, (Reported) Entered as Reported by: FRANK WALLACE on 01/30/21 1443 Aspirin (Children's Aspirin) 81 Mg Tab.chew, 81 MG PO DAILY Prescribed by: YEN SPIVEY on 01/31/21 1550 Atorvastatin Calcium (Atorvastatin Calcium) 80 Mg Tablet, 80 MG PO HS Prescribed by: YEN SPIVEY on 01/31/21 1550 Cetirizine HCl (Zyrtec) 10 Mg Tablet, 10 MG PO DAILY PRN for ALLERGY SYMPTOMS, (Reported) Entered as Reported by: FRANK WALLACE on 01/30/21 1443 Clopidogrel Bisulfate (Clopidogrel) 75 Mg Tablet, 75 MG PO DAILY Prescribed by: YEN SPIVEY on 01/31/21 1550 Cyclobenzaprine HCl (Cyclobenzaprine HCl) 10 Mg Tablet, 10 MG PO Q8H PRN for SPASMS Prescribed by: ANGELES WASHINGTONSTWENCESLAO on 06/14/21 1709 Cyclobenzaprine HCl (Cyclobenzaprine HCl) 10 Mg Tablet, 10 MG PO Q8H PRN for SPASMS Prescribed by: ANGELES WASHINGTONSTWENCESLAO on 07/31/21 1605 Ibuprofen (Ibuprofen) 200 Mg Tablet, 600 MG PO Q8H PRN for PAIN-MILD (1-4), (Reported) Entered as Reported by: FRANK WALLACE on 01/30/21 1443 Ibuprofen (Ibuprofen) 800 Mg Tablet, 800 MG PO Q8H PRN for PAIN Prescribed by: ANGELES CONTRERAS on 07/31/21 1605 Metoprolol Succinate (Metoprolol Succinate) 25 Mg Tab.er.24h, 25 MG PO DAILY Prescribed by: EYN SPIVEY on 01/31/21 1550 Nicotine (Nicoderm Cq) 1 Each Patch.td24, 21 MG TD DAILY@0900 Prescribed by: YOON MAHER on 02/01/21 1054 Review of Systems Review of Systems Constitutional: No fever, No malaise Respiratory: no symptoms reported Cardiovascular: no symptoms reported Gastrointestinal: No abdominal pain, No loss of appetite, No nausea, No vomiting 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: denies dysuria, denies frequency; flank pain, pain Musculoskeletal: back pain Skin: No change in color, No rash Past Mzcaihy-Ynswhq-Xdzjny Hx Patient Social History Tobacco Use?: Yes Tobacco type used: Cigarettes Smoking Status: Current Everyday Smoker Use of E-Cig and/or Vaping dev: No Substance use?: No Alcohol Use?: No Pt feels they are or have been: No Immunizations Up To Date Tetanus Booster (TDap): Less than 5yrs PED Vaccines UTD: Yes First/Initial COVID19 Vaccinat: MAY 2021 Second COVID19 Vaccination Ilir: JUNE 2021 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: [employer] Seasonal Allergies Seasonal Allergies: No Past Medical History Surgeries: Yes Abdominal, Section, Coronary Stent, Gallbladder Respiratory: No Currently Using CPAP: No Currently Using BIPAP: No Cardiac: Yes Coronary Artery Disease Neurological: Yes Headaches /Migraines 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 Disorders: No 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: No Gastrointestinal: Yes Diverticulosis Musculoskeletal: No Endocrine: No HEENT: No Loss of Vision: Denies Hearing Impairment: Denies Cancer: No Psychosocial: Yes Anxiety, Depression Integumentary: No Blood Disorders: No Adverse Reaction/Blood Tranf: No Family Medical History Arthritis 19 MOTHER GRANDMA-MATERAL Colon cancer GRANDP-MATERANL Completed stroke 19 FATHER Congenital disease 19 FATHER Congenital heart disease 19 FATHER Diabetes mellitus 19 FATHER GRANDMA-MATERAL Hypercholesterolemia Myocardial infarction 19 FATHER GRANDP-MATERANL Heart Disease, Cancer, Diabetes Physical Exam Vital Signs Vital Signs - First Documented 07/31/21 15:00 Temp 36.5 Pulse 95 Resp 18 B/P (MAP) 138/80 (99) Pulse Ox 100 O2 Delivery Room Air Capillary Refill : Less Than 3 Seconds Height, Weight, BMI Height: 5'5.00" Weight: 196lbs. 0.0oz. 88.608474gg; 35.00 BMI Method:Stated General Appearance: WD/WN, no apparent distress Cardiovascular: regular rate, rhythm, no JVD Respiratory: chest non-tender, lungs clear Gastrointestinal: non tender, soft Back: CVA tenderness (R); No muscle spasm Progress/Results/Core Measures Suspected Sepsis SIRS Temperature: Pulse: 95 Respiratory Rate: 18 Blood Pressure 138 /80 Mean: 99 Results/Orders Lab Results Laboratory Tests Test 07/31/21 15:03 Range/Units Urine Color YELLOW Urine Clarity CLOUDY Urine pH 6.5 5-9 Urine Specific [place] 1.025 H 1.016-1.022 Urine Protein NEGATIVE NEGATIVE Urine Glucose (UA) NEGATIVE NEGATIVE Urine Ketones NEGATIVE NEGATIVE Urine Nitrite NEGATIVE NEGATIVE Urine Bilirubin NEGATIVE NEGATIVE Urine Urobilinogen 1.0 < = 1.0 MG/DL Urine Leukocyte Esterase NEGATIVE NEGATIVE Urine RBC (Auto) NEGATIVE NEGATIVE Urine RBC RARE /HPF Urine WBC 0-2 /HPF Urine Squamous Epithelial Cells 10-25 H /HPF Urine Crystals NONE /LPF Urine Bacteria TR /HPF Urine Casts NONE /LPF Urine Mucus LARGE H /LPF Urine Other CLUE CELLS NOTED /HPF Urine Culture Indicated NO My Orders Orders - ROVENSTINE,ANGELES L DO Ua Culture If Indicated (07/31/21 15:06) Vital Signs/I&O 07/31/21 15:00 Temp 36.5 Pulse 95 Resp 18 B/P (MAP) 138/80 (99) Pulse Ox 100 O2 Delivery Room Air Capillary Refill : Less Than 3 Seconds Blood Pressure Mean: 99 Progress Note : Progress Note Pain more suspicious for MsSk etiology than UTI or renal stone. Trial of NSAID and ms relaxer and heat w stretching advised. Recommended to see PCP in 1 wk, sooner if worse. Departure Impression Primary Impression: Strain of lumbar paraspinal muscle Qualified Codes: S39.012A - Strain of muscle, fascia and tendon of lower back, initial encounter Disposition: 01 HOME, SELF-CARE Condition: Stable Departure-Patient Inst. Decision time for Depature: 16:04 Referrals: SELF,ERIC LAWRENCE (PCP/Family) Primary Care Physician Add. Discharge Instructions: Follow up with Dr Huerta iin 1 week if not improving, sooner if worse All discharge instructions reviewed with patient and/or family. Voiced understanding. Scripts Ibuprofen (Ibuprofen) 800 Mg Tablet 800 MG PO Q8H PRN for PAIN, #30 TAB 0 Refills Prov: ANGELES CONTRERAS DO 07/31/21 Cyclobenzaprine HCl (Cyclobenzaprine HCl) 10 Mg Tablet 10 MG PO Q8H PRN for SPASMS, #15 TAB 0 Refills Prov: ANGELES CONTRERAS DO 07/31/21 ANGELES CONTRERAS DO Jul 31, 2021 15:20
[2021-07-31 15:30] LABS: BILIRUBIN,URINE NEGATIVE (NEGATIVE); COLOR,URINE YELLOW; GLUCOSE, URINE (UA) NEGATIVE (NEGATIVE); KETONES,URINE NEGATIVE (NEGATIVE); LEUKOCYTE ESTERASE ,URINE NEGATIVE (NEGATIVE); NITRITE,URINE NEGATIVE (NEGATIVE); PH,URINE 6.5 (5-9); PROTEIN,URINE NEGATIVE (NEGATIVE)
[2021-07-31 15:31] LABS: CLARITY,URINE CLOUDY; RBC,URINE RARE /HPF; WBC,URINE 0-2 /HPF
[2021-07-31 15:32] LABS: BACTERIA,URINE TR /HPF
[2021-07-31 15:33] LABS: URINE OTHER CLUE CELLS NOTED /HPF
[2021-07-31] MEDS ORDERED: IBUP-1780 PO (16:05)
[2021-07-31] MEDS ORDERED: CYCL10TA9 PO (16:05)
[2021-07-31 16:06] VITALS: BP 138/80
== END 2021-07-31 16:06 | disposition home or self-care (01) ==
LOC: EDUNIT# 14:57 → ER FS 15:00
DX: S39.012A Strain of muscle, fascia and tendon of lower back, initial encounter (principal); I25.10 Atherosclerotic heart disease of native coronary artery without angina pectoris; F17.210 Nicotine dependence, cigarettes, uncomplicated; Z79.01 Long term (current) use of anticoagulants; Z79.82 Long term (current) use of aspirin; Z79.899 Other long term (current) drug therapy; X58.XXXA Exposure to other specified factors, initial encounter
CPT/HCPCS: 81000; 99282

== ENCOUNTER 2021-11-20 10:40 | Emergency (ER) | payer SELFPAY ==
[~2021-11-20] VITALS: Ht 160 cm; Wt 90.0 kg
[~2021-11-20 10:40] MED LIST changes: +CYCL10TA25 PO; -CYCL10TA9 PO; +IBUP-1780 PO; +SCOP1PAT10 TOP; -SCOP1PAT11 TOP
[2021-11-20] MEDS ORDERED: KETOROLAC 30 MG/ML VIAL IVP STA (10:53)
[2021-11-20] MEDS ORDERED: LACTATED RINGERS 1,000 ML IV STA (10:53)
[2021-11-20] MEDS ORDERED: ONDANSETRON 4 MG/2 ML (SDV) Z0FRAN IVP ONE (11:00)
--- NOTE | 2021-11-20 11:01 | ED General ---
General Chief Complaint: COVID19 Suspect/Confirmed Stated Complaint: VOMITING; COVID+ Source of Information: Patient Exam Limitations: No Limitations History of Present Illness Date Seen by Provider: Nov 20, 2021 Time Seen by Provider: 10:43 Initial Comments Here with report of being COVID-positive since 11/17/2021 through testing from [facility] urgent care. States that she has had 48 hours of vomiting and is having a hard time keeping anything down. Her primary care physician called and Sahil but she has not picked that up yet. She will pick that up. Decreased appetite. Complains of headache. Denies fever, sore throat or runny nose. Did have exposure to stepfather who was COVID-positive. She is vaccinated since June of last year. Timing/Duration: 3-4 Days Severity: Moderate Associated Systoms: No Chest Pain, No Cough, No Fever/Chills; Headaches, Loss of Appetite, Nausea/Vomiting; No Shortness of Air, No Weakness Allergies and Home Medications Allergies Coded Allergies: No Known Drug Allergies (Verified , 02/20/19) Patient Home Medication List Home Medication List Reviewed: Yes Acetaminophen (Tylenol Extra Strength) 500 Mg Tablet, 1,000 MG PO Q6H PRN for PAIN-MILD (1-4), (Reported) Entered as Reported by: FRANK WALLACE on 01/30/21 144 Albuterol Sulfate (Proventil Hfa) 6.7 Gm Hfa.aer.ad, 2 PUFF INH Q6H PRN for SHORTNESS OF BREATH, (Reported) Entered as Reported by: FRANK WALLACE on 01/30/21 144 Aspirin (Children's Aspirin) 81 Mg Tab.chew, 81 MG PO DAILY Prescribed by: YEN SPIVEY on 01/31/21 155 Atorvastatin Calcium (Atorvastatin Calcium) 80 Mg Tablet, 80 MG PO HS Prescribed by: YEN SPIVEY on 01/31/21 155 Cetirizine HCl (Zyrtec) 10 Mg Tablet, 10 MG PO DAILY PRN for ALLERGY SYMPTOMS, (Reported) Entered as Reported by: FRANK WALLACE on 01/30/21 144 Clopidogrel Bisulfate (Clopidogrel) 75 Mg Tablet, 75 MG PO DAILY Prescribed by: YEN SPIVEY on 01/31/21 155 Cyclobenzaprine HCl (Cyclobenzaprine HCl) 10 Mg Tablet, 10 MG PO Q8H PRN for SPASMS Prescribed by: ANGELES MIRELESVENSTINE on 06/14/21 1709 Cyclobenzaprine HCl (Cyclobenzaprine HCl) 10 Mg Tablet, 10 MG PO Q8H PRN for SPASMS Prescribed by: ANGELES MIRELESVENSTINE on 07/31/21 1605 Ibuprofen (Ibuprofen) 200 Mg Tablet, 600 MG PO Q8H PRN for PAIN-MILD (1-4), (Reported) Entered as Reported by: FRANK WALLACE on 01/30/21 1443 Ibuprofen (Ibuprofen) 800 Mg Tablet, 800 MG PO Q8H PRN for PAIN Prescribed by: ANGELES WASHINGTONSTWENCESLAO on 07/31/21 1605 Metoprolol Succinate (Metoprolol Succinate) 25 Mg Tab.er.24h, 25 MG PO DAILY Prescribed by: YEN SPIVEY on 01/31/21 1550 Nicotine (Nicoderm Cq) 1 Each Patch.td24, 21 MG TD DAILY@0900 Prescribed by: YOON MAHER on 02/01/21 1054 Review of Systems Review of Systems Constitutional: see HPI; No fever; malaise EENTM: No nose congestion, No throat pain Respiratory: No cough, No short of breath Cardiovascular: No chest pain, No edema Gastrointestinal: No abdominal pain, No diarrhea; nausea, vomiting 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: no symptoms reported Musculoskeletal: no symptoms reported Skin: no symptoms reported All Other Systems Reviewed Negative Unless Noted: Yes Past Tgfpnzj-Vnwxea-Qiozdk Hx Patient Social History Tobacco Use?: Yes Tobacco type used: Cigarettes Smoking Status: Current Everyday Smoker Use of E-Cig and/or Vaping dev: No Substance use?: No Alcohol Use?: No Pt feels they are or have been: No Immunizations Up To Date Tetanus Booster (TDap): Less than 5yrs PED Vaccines UTD: Yes First/Initial COVID19 Vaccinat: MAY 2021 Second COVID19 Vaccination Ilir: JUNE 2021 Seasonal Allergies Seasonal Allergies: No Past Medical History Surgeries: Yes Abdominal, Section, Coronary Stent, Gallbladder Respiratory: No Currently Using CPAP: No Currently Using BIPAP: No Cardiac: Yes Coronary Artery Disease Neurological: Yes Headaches /Migraines 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 Disorders: No 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: No Gastrointestinal: Yes Diverticulosis Musculoskeletal: No Endocrine: No HEENT: No Loss of Vision: Denies Hearing Impairment: Denies Cancer: No Psychosocial: Yes Anxiety, Depression Integumentary: No Blood Disorders: No Adverse Reaction/Blood Tranf: No Family Medical History Reviewed Nursing Family Hx Arthritis 19 MOTHER GRANDMA-MATERAL Colon cancer GRANDP-MATERANL Completed stroke 19 FATHER Congenital disease 19 FATHER Congenital heart disease 19 FATHER Diabetes mellitus 19 FATHER GRANDMA-MATERAL Hypercholesterolemia Myocardial infarction 19 FATHER GRANDP-MATERANL Heart Disease, Cancer, Diabetes Physical Exam Vital Signs Vital Signs - First Documented 11/20/21 10:52 Temp 36.1 Pulse 96 Resp 16 B/P (MAP) 148/101 (117) Pulse Ox 99 O2 Delivery Room Air Capillary Refill : Height, Weight, BMI Height: 5'5.00" Weight: 196lbs. 0.0oz. 88.586241om; 35.00 BMI Method:Stated General Appearance: No Apparent Distress, WD/WN HEENT: PERRL/EOMI, Pharynx Normal Neck: Non Tender, Supple Respiratory: Lungs Clear Cardiovascular: No Murmur, Tachycardia Gastrointestinal: Non Tender, Soft Back: Normal Inspection, No CVA Tenderness, No Vertebral Tenderness Extremity: Normal Inspection, Normal Range of Motion, Non Tender, No Calf Tenderness, No Pedal Edema Neurologic/Psychiatric: Alert, Oriented x3 Skin: Normal Color, Warm/Dry Progress/Results/Core Measures Suspected Sepsis SIRS Temperature: Pulse: Respiratory Rate: Laboratory Tests 11/20/21 11:20: White Blood Count 12.9H Blood Pressure / Mean: Laboratory Tests 11/20/21 11:20: Creatinine 0.63, Platelet Count 387, Total Bilirubin 0.3 Results/Orders Lab Results Laboratory Tests Test 11/20/21 11:20 Range/Units White Blood Count 12.9 H 4.3-11.0 10^3/uL Red Blood Count 4.70 3.80-5.11 10^6/uL Hemoglobin 14.4 11.5-16.0 g/dL Hematocrit 44 35-52 % Mean Corpuscular Volume 93 80-99 fL Mean Corpuscular Hemoglobin 31 25-34 pg Mean Corpuscular Hemoglobin Concent 33 32-36 g/dL Red Cell Distribution Width 14.1 10.0-14.5 % Platelet Count 387 130-400 10^3/uL Mean Platelet Volume 10.7 9.0-12.2 fL Immature Granulocyte % (Auto) 0 % Neutrophils (%) (Auto) 69 42-75 % Lymphocytes (%) (Auto) 22 12-44 % Monocytes (%) (Auto) 5 0-12 % Eosinophils (%) (Auto) 2 0-10 % Basophils (%) (Auto) 1 0-10 % Neutrophils # (Auto) 8.9 H 1.8-7.8 X 10^3 Lymphocytes # (Auto) 2.9 1.0-4.0 X 10^3 Monocytes # (Auto) 0.6 0.0-1.0 X 10^3 Eosinophils # (Auto) 0.3 0.0-0.3 10^3/uL Basophils # (Auto) 0.1 0.0-0.1 10^3/uL Immature Granulocyte # (Auto) 0.1 0.0-0.1 10^3/uL Sodium Level 140 135-145 MMOL/L Potassium Level 3.8 3.6-5.0 MMOL/L Chloride Level 104 98-107 MMOL/L Carbon Dioxide Level 26 21-32 MMOL/L Anion Gap 10 5-14 MMOL/L Blood Urea Nitrogen 9 7-18 MG/DL Creatinine 0.63 0.60-1.30 MG/DL Estimat Glomerular Filtration Rate 117 BUN/Creatinine Ratio 14 Glucose Level 100 70-105 MG/DL Calcium Level 9.0 8.5-10.1 MG/DL Corrected Calcium 8.7 8.5-10.1 MG/DL Total Bilirubin 0.3 0.1-1.0 MG/DL Aspartate Amino Transf (AST/SGOT) 17 5-34 U/L Alanine Aminotransferase (ALT/SGPT) 29 0-55 U/L Alkaline Phosphatase 89 40-136 U/L Total Protein 7.3 6.4-8.2 GM/DL Albumin 4.4 3.2-4.5 GM/DL My Orders Orders - PER SERRANO MD Chest 1 View Ap/Pa Only (11/20/21 10:53) Ondansetron Injection (Zofran Injectio (11/20/21 11:00) Lactated Ringers (Lr 1000 Ml Iv Solution (11/20/21 10:53) Ed Iv/Invasive Line Start (11/20/21 10:53) Ketorolac Injection (Toradol Injection) (11/20/21 10:53) Covid-19 External Lab Results (11/20/21 10:53) Cbc With Automated Diff (11/20/21 11:20) Comprehensive Metabolic Panel (11/20/21 11:20) Medications Given in ED Current Medications Medications Dose Ordered Sig/Marnie Route Start Time Stop Time Status Last Admin Dose Admin Ondansetron HCl 4 mg ONCE ONCE IVP 11/20/21 11:00 11/20/21 11:01 DC 11/20/21 11:00 4 MG Vital Signs/I&O 11/20/21 10:52 Temp 36.1 Pulse 96 Resp 16 B/P (MAP) 148/101 (117) Pulse Ox 99 O2 Delivery Room Air Capillary Refill : Progress Note : Progress Note Seen and evaluated. IV, labs, chest x-ray, LR 1 L bolus, Zofran 4 mg IV and Toradol 30 mg IV ordered. Monitor patient. 1158: Overall better. Discharged home with return precautions. Patient verbalized understanding of instructions and agreement with plan. Diagnostic Imaging Diagonstic Imaging: Xray Plain Films/CT/US/NM/MRI: chest Comments [facility], [place] NAME: MARCUS PADILLA [facility] REC#: [id number] PT STATUS: REG ER : 1985 PHYSICIAN: PER SERRANO MD ADMIT DATE: 11/20/21/ER FS Draft Date of Exam:11/20/21 CHEST 1 VIEW AP/PA ONLY INDICATION: Vomiting and COVID-19 positive. TIME OF EXAM: 10:58 a.m. COMPARISON: Correlation is made with prior chest from 06/14/2021. FINDINGS: The heart size is normal. The pulmonary vascularity is unremarkable. The lungs are clear. No infiltrate, effusion or pneumothorax is detected. IMPRESSION: No acute cardiopulmonary process is detected. Dictated on workstation # [id number] Dict: 11/20/21 1104 Trans: 11/20/21 1106 [id number] [id number] Interpreted by: PHILLIP ELISE MD Electronically signed by: Departure Impression Primary Impression: COVID-19 virus infection Additional Impression: Nausea and vomiting Qualified Codes: R11.2 - Nausea with vomiting, unspecified Disposition: HOME, SELF-CARE Condition: Improved Departure-Patient Inst. Decision time for Depature: 11:58 Referrals: ERIC CALDERON MD (PCP/Family) Primary Care Physician Patient Instructions: COVID-19 ED, Nausea and Vomiting, Adult (DC) Add. Discharge Instructions: All discharge instructions reviewed with patient and/or family. Voiced understanding. 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 Clear liquid diet for 24 hours and then advance as tolerated. You may use Tylenol/acetaminophen 1000 mg every 8 hours as needed for fever or pain. You may use ibuprofen, 600 mg every 8 hours as needed for fever or pain. Drink plenty of fluids but taking small sips frequently. Get plenty of rest. Return for worse pain, fever, persistent vomiting, weakness, decreased urination, breathing problems or other concerns as needed. Continue home medications as previously prescribed. Monitor your oxygen saturation level. Return if your oxygen saturation is 90% or below while resting. Your current oxygen saturation rate is 98% while resting. PRE SERRANO MD Nov 20, 2021 11:01
--- NOTE | 2021-11-20 11:07 | Diagnostic Imaging Report ---
INDICATION: Vomiting and COVID-19 positive. TIME OF EXAM: 10:58 a.m. COMPARISON: Correlation is made with prior chest from 06/14/2021. FINDINGS: The heart size is normal. The pulmonary vascularity is unremarkable. The lungs are clear. No infiltrate, effusion or pneumothorax is detected. IMPRESSION: No acute cardiopulmonary process is detected. Dictated by: Dictated on workstation # [id number]
[2021-11-20 11:40] LABS: HEMATOCRIT 44 % (35-52); HEMOGLOBIN 14.4 g/dL (11.5-16.0); MEAN CORPUSCULAR HEMOGLOBIN 31 pg (25-34); MEAN CORPUSCULAR HGB CONC 33 g/dL (32-36); MEAN CORPUSCULAR VOLUME 93 fL (80-99); MEAN PLATELET VOLUME 10.7 fL (9.0-12.2); PLATELET COUNT 387 10^3/uL (130-400); WHITE BLOOD COUNT 12.9 10^3/uL (4.3-11.0)
[2021-11-20 11:41] LABS: BASOPHILS # (AUTO) 0.1 10^3/uL (0.0-0.1); BASOPHILS % (AUTO) 1 % (0-10); EOSINOPHILS # (AUTO) 0.3 10^3/uL (0.0-0.3); EOSINOPHILS % (AUTO) 2 % (0-10); LYMPHOCYTES # (AUTO) 2.9 X 10^3 (1.0-4.0); LYMPHOCYTES % (AUTO) 22 % (12-44); MONOCYTES # (AUTO) 0.6 X 10^3 (0.0-1.0); MONOCYTES % (AUTO) 5 % (0-12); NEUTROPHILS # (AUTO) 8.9 X 10^3 (1.8-7.8); NEUTROPHILS % (AUTO) 69 % (42-75)
[2021-11-20 11:44] LABS: POTASSIUM 3.8 MMOL/L (3.6-5.0)
[2021-11-20 11:45] LABS: ALBUMIN 4.4 GM/DL (3.2-4.5); BILIRUBIN,TOTAL 0.3 MG/DL (0.1-1.0); CREATININE SERUM 0.63 MG/DL (0.60-1.30); TOTAL PROTEIN 7.3 GM/DL (6.4-8.2)
[2021-11-20 12:10] VITALS: BP 113/63
== END 2021-11-20 12:05 | disposition home or self-care (01) ==
LOC: EDUNIT# 10:40 → ER FS 10:42
DX: U07.1 COVID-19 (principal); F17.210 Nicotine dependence, cigarettes, uncomplicated; I25.10 Atherosclerotic heart disease of native coronary artery without angina pectoris; Z79.82 Long term (current) use of aspirin; Z79.899 Other long term (current) drug therapy; Z95.5 Presence of coronary angioplasty implant and graft
CPT/HCPCS: 36415; 71045; 80053; 85025; 96374; 96375

== ENCOUNTER 2021-12-22 10:02 | Emergency (ER) | payer SELFPAY ==
--- NOTE | 2021-12-22 10:11 | ED Chest Pain ---
General Stated Complaint: CHEST PAIN History of Present Illness Date Seen by Provider: Dec 22, 2021 Time Seen by Provider: 10:04 Initial Comments 36 yr F with PMH of heart attack with stent placement last January,, is here with c/o chest pain which began today around 7:30 AM in the morning. Pain was left sided and continuous and 7/10, non-radiating. Pt had associated nausea with the chest pain, which is located under her left rib. Denies SOB, fever, cough, headache, acid reflux, heartburn, diarrhea, abdominal pain, constipation. Pt states she has a lot of stress at work which may have triggered this. Pt started going to the gym to relieve stress. Allergies and Home Medications Allergies Coded Allergies: No Known Drug Allergies (Verified , 02/20/19) Patient Home Medication List Home Medication List Reviewed: Yes Acetaminophen (Tylenol Extra Strength) 500 Mg Tablet, 1,000 MG PO Q6H PRN for PAIN-MILD (1-4), (Reported) Entered as Reported by: FRANK WALLACE on 01/30/21 144 Albuterol Sulfate (Proventil Hfa) 6.7 Gm Hfa.aer.ad, 2 PUFF INH Q6H PRN for SHORTNESS OF BREATH, (Reported) Entered as Reported by: FRANK WALLACE on 01/30/21 144 Aspirin (Children's Aspirin) 81 Mg Tab.chew, 81 MG PO DAILY Prescribed by: YEN SPIVEY on 01/31/21 1550 Atorvastatin Calcium (Atorvastatin Calcium) 80 Mg Tablet, 80 MG PO HS Prescribed by: YEN SPIVEY on 01/31/21 155 Cetirizine HCl (Zyrtec) 10 Mg Tablet, 10 MG PO DAILY PRN for ALLERGY SYMPTOMS, (Reported) Entered as Reported by: FRANK WALLACE on 01/30/21 144 Clopidogrel Bisulfate (Clopidogrel) 75 Mg Tablet, 75 MG PO DAILY Prescribed by: YEN SPIVEY on 01/31/21 155 Cyclobenzaprine HCl (Cyclobenzaprine HCl) 10 Mg Tablet, 10 MG PO Q8H PRN for SPASMS Prescribed by: ANGELES CONTRERAS on 06/14/21 1709 Cyclobenzaprine HCl (Cyclobenzaprine HCl) 10 Mg Tablet, 10 MG PO Q8H PRN for SPASMS Prescribed by: ANGELES CONTRERAS on 07/31/21 1605 Ibuprofen (Ibuprofen) 200 Mg Tablet, 600 MG PO Q8H PRN for PAIN-MILD (1-4), (Reported) Entered as Reported by: FRANK WALLACE on 01/30/21 1443 Ibuprofen (Ibuprofen) 800 Mg Tablet, 800 MG PO Q8H PRN for PAIN Prescribed by: ANGELES MIRELESVENSTWENCESLAO on 07/31/21 1605 Metoprolol Succinate (Metoprolol Succinate) 25 Mg Tab.er.24h, 25 MG PO DAILY Prescribed by: YEN SPIVEY on 01/31/21 1550 Nicotine (Nicoderm Cq) 1 Each Patch.td24, 21 MG TD DAILY@0900 Prescribed by: YOON MAHER on 02/01/21 1054 Review of Systems Review of Systems Constitutional: no symptoms reported EENTM: No Symptoms Reported Respiratory: No Symptoms Reported Cardiovascular: Chest Pain Gastrointestinal: No Symptoms Reported 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: No Symptoms Reported Musculoskeletal: no symptoms reported Skin: no symptoms reported Psychiatric/Neurological: No Symptoms Reported Endocrine: No Symptoms Reported Hematologic/Lymphatic: No Symptoms Reported Past Gydviwr-Ggauyf-Rtntho Hx Immunizations Up To Date Tetanus Booster (TDap): Less than 5yrs PED Vaccines UTD: Yes First/Initial COVID19 Vaccinat: MAY 2021 Second COVID19 Vaccination Ilir: JUNE 2021 Seasonal Allergies Seasonal Allergies: No Past Medical History Surgeries: Yes Abdominal, Section, Coronary Stent, Gallbladder Respiratory: No Currently Using CPAP: No Currently Using BIPAP: No Cardiac: Yes Coronary Artery Disease Neurological: Yes Headaches /Migraines 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 Disorders: No 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: No Gastrointestinal: Yes Diverticulosis Musculoskeletal: No Endocrine: No HEENT: No Loss of Vision: Denies Hearing Impairment: Denies Cancer: No Psychosocial: Yes Anxiety, Depression Integumentary: No Blood Disorders: No Adverse Reaction/Blood Tranf: No Family Medical History Arthritis 19 MOTHER GRANDMA-MATERAL Colon cancer GRANDP-MATERANL Completed stroke 19 FATHER Congenital disease 19 FATHER Congenital heart disease 19 FATHER Diabetes mellitus 19 FATHER GRANDMA-MATERAL Hypercholesterolemia Myocardial infarction 19 FATHER GRANDP-MATERANL Heart Disease, Cancer, Diabetes Physical Exam Vital Signs Vital Signs - First Documented 12/22/21 10:22 Temp 36.6 Pulse 86 Resp 18 B/P (MAP) 137/83 (101) O2 Delivery Room Air Capillary Refill : Height, Weight, BMI Height: 5'5.00" Weight: 196lbs. 0.0oz. 88.911380sb; 35.00 BMI Method:Stated General Appearance: No Apparent Distress, Mild Distress HEENT: PERRL/EOMI Neck: Full Range of Motion, Normal Inspection, Non Tender, Supple Respiratory: Chest Non Tender, Lungs Clear, Normal Breath Sounds, No Accessory Muscle Use, No Respiratory Distress Cardiovascular: Regular Rate, Rhythm, No Edema, No JVD, No Murmur, Normal Peripheral Pulses Gastrointestinal: Normal Bowel Sounds, No Organomegaly, No Pulsatile Mass, Non Tender, Soft Extremity: Normal Capillary Refill, Normal Inspection Neurologic/Psychiatric: Alert, Oriented x3, No Motor/Sensory Deficits, Normal 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, 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 Norm as Tested Skin: Normal Color Progress/Results/Core Measures Results/Orders Lab Results Laboratory Tests Test 12/22/21 10:15 12/22/21 10:48 12/22/21 12:30 Range/Units White Blood Count 9.1 4.3-11.0 10^3/uL Red Blood Count 4.50 3.80-5.11 10^6/uL Hemoglobin 13.7 11.5-16.0 g/dL Hematocrit 41 35-52 % Mean Corpuscular Volume 92 80-99 fL Mean Corpuscular Hemoglobin 30 25-34 pg Mean Corpuscular Hemoglobin Concent 33 32-36 g/dL Red Cell Distribution Width 13.9 10.0-14.5 % Platelet Count 320 130-400 10^3/uL Mean Platelet Volume 10.2 9.0-12.2 fL Immature Granulocyte % (Auto) 0 % Neutrophils (%) (Auto) 56 42-75 % Lymphocytes (%) (Auto) 33 12-44 % Monocytes (%) (Auto) 6 0-12 % Eosinophils (%) (Auto) 4 0-10 % Basophils (%) (Auto) 0 0-10 % Neutrophils # (Auto) 5.1 1.8-7.8 10^3/uL Lymphocytes # (Auto) 3.0 1.0-4.0 10^3/uL Monocytes # (Auto) 0.6 0.0-1.0 10^3/uL Eosinophils # (Auto) 0.3 0.0-0.3 10^3/uL Basophils # (Auto) 0.0 0.0-0.1 10^3/uL Immature Granulocyte # (Auto) 0.0 0.0-0.1 10^3/uL Prothrombin Time 12.9 12.2-14.7 SEC INR Comment 0.9 0.8-1.4 Activated Partial Thromboplast Time 27 24-35 SEC D-Dimer 0.24 0.00-0.49 UG/ML Sodium Level 140 135-145 MMOL/L Potassium Level 4.0 3.6-5.0 MMOL/L Chloride Level 106 98-107 MMOL/L Carbon Dioxide Level 23 21-32 MMOL/L Anion Gap 11 5-14 MMOL/L Blood Urea Nitrogen 10 7-18 MG/DL Creatinine 0.58 L 0.60-1.30 MG/DL Estimat Glomerular Filtration Rate 119 BUN/Creatinine Ratio 17 Glucose Level 96 70-105 MG/DL Calcium Level 8.8 8.5-10.1 MG/DL Corrected Calcium 8.6 8.5-10.1 MG/DL Magnesium Level 2.2 1.6-2.4 MG/DL Total Bilirubin 0.3 0.1-1.0 MG/DL Aspartate Amino Transf (AST/SGOT) 18 5-34 U/L Alanine Aminotransferase (ALT/SGPT) 22 0-55 U/L Alkaline Phosphatase 69 40-136 U/L Troponin I < 0.30 < 0.30 <0.30 NG/ML Total Protein 7.2 6.4-8.2 GM/DL Albumin 4.2 3.2-4.5 GM/DL Urine Color YELLOW Urine Clarity CLOUDY Urine pH 6.0 5-9 Urine Specific [place] 1.025 H 1.016-1.022 Urine Protein NEGATIVE NEGATIVE Urine Glucose (UA) NEGATIVE NEGATIVE Urine Ketones NEGATIVE NEGATIVE Urine Nitrite NEGATIVE NEGATIVE Urine Bilirubin NEGATIVE NEGATIVE Urine Urobilinogen 0.2 < = 1.0 MG/DL Urine Leukocyte Esterase NEGATIVE NEGATIVE Urine RBC (Auto) NEGATIVE NEGATIVE Urine RBC NONE /HPF Urine WBC 2-5 /HPF Urine Squamous Epithelial Cells 10-25 H /HPF Urine Crystals NONE /LPF Urine Bacteria MODERATE H /HPF Urine Casts NONE /LPF Urine Mucus MODERATE H /LPF Urine Culture Indicated NO Urine Opiates Screen NEGATIVE NEGATIVE Urine Oxycodone Screen NEGATIVE NEGATIVE Urine Methadone Screen NEGATIVE NEGATIVE Urine Propoxyphene Screen NEGATIVE NEGATIVE Urine Barbiturates Screen NEGATIVE NEGATIVE Ur Tricyclic Antidepressants Screen NEGATIVE NEGATIVE Urine Phencyclidine Screen NEGATIVE NEGATIVE Urine Amphetamines Screen NEGATIVE NEGATIVE Urine Methamphetamines Screen NEGATIVE NEGATIVE Urine Benzodiazepines Screen NEGATIVE NEGATIVE Urine Cocaine Screen NEGATIVE NEGATIVE Urine Cannabinoids Screen NEGATIVE NEGATIVE My Orders Orders - PINO ARMSTRONG MD Cbc With Automated Diff (12/22/21 10:11) Magnesium (12/22/21 10:11) Chest 1 View Ap/Pa Only (12/22/21 10:11) Ekg Tracing (12/22/21 10:11) Comprehensive Metabolic Panel (12/22/21 10:11) Protime With Inr (12/22/21 10:11) Partial Thromboplastin Time (12/22/21 10:11) O2 (12/22/21 10:11) Monitor-Rhythm Ecg Trace Only (12/22/21 10:11) Aspirin Chewable Tablet (Baby Aspirin Ch (12/22/21 10:15) Nitroglycerin 0.4 Mg Btl 25's (Nitrostat (12/22/21 10:15) Ed Iv/Invasive Line Start (12/22/21 10:11) Fibrin Degradation Products (12/22/21 10:11) Troponin I Fs (12/22/21 10:11) Urine Bedside (12/22/21 10:13) Ua Culture If Indicated (12/22/21 10:14) Drug Screen Stat (Urine) (12/22/21 10:14) Morphine Injection (Morphine Injection (12/22/21 10:31) Troponin I Fs (12/22/21 12:08) Ekg Tracing (12/22/21 12:59) Medications Given in ED Vital Signs/I&O 12/22/21 10:22 Temp 36.6 Pulse 86 Resp 18 B/P (MAP) 137/83 (101) O2 Delivery Room Air Progress Progress Note : Progress Note 1. CHEST PAIN: STRESS INDUCED: - Pt has cardiology appt in 2 weeks at [facility] -Troponin level is normal x2. -Chest x-ray normal. -Labs unremarkable. Patient was given aspirin and nitrates, Morphine in ER with resolution of pain. Advised patient to keep cardiology appointment and to follow-up with PCP. -The patient was seen in the ED, and treated appropriately to presentation at a specific point in time. Patient is informed that there is a possibility that disease and illness can evolve and change in acuity rapidly or slowly after patient is discharged from the ER. Precautionary advice given to the patient for immediate return to ER if symptoms worsen or do not resolve, and to seek energency care sooner rather than later. Pt also advised on the importance of PCP follow up and compliance with mangement and follow up plan. Pt verbally expressed understanding. Departure Impression Primary Impression: Chest pain Qualified Codes: R07.89 - Other chest pain Additional Impression: Stress at work Disposition: HOME, SELF-CARE Condition: Improved (chest pain resolved) Departure-Patient Inst. Referrals: SELF,ERIC LAWRENCE (PCP/Family) Primary Care Physician Patient Instructions: Chest Pain That Is Not Caused by the Heart (DC), Heart Healthy Diet, Stress Add. Discharge Instructions: Keep Cardiology appointment and also follow up with PCP The patient was seen in the ED, and treated appropriately to presentation at a specific point in time. Patient is informed that there is a possibility that disease and illness can evolve and change in acuity rapidly or slowly after patient is discharged from the ER. Precautionary advice given to the patient for immediate return to ER if symptoms worsen or do not resolve, and to seek emergency care sooner rather than later. Pt also advised on the importance of PCP follow up and compliance with management and follow up plan. Pt verbally expressed understanding. PINO ARMSTRONG MD Dec 22, 2021 10:10
[2021-12-22] MEDS ORDERED: NITROGLYCERIN 0.4 MG SL TABS BTL 25'S SL PRN (10:15)
[2021-12-22] MEDS ORDERED: ASPIRIN 81 MG CHEW (CHILDREN'S ASA) PO ONE (10:15)
[2021-12-22 10:21] LABS: BASOPHILS % (AUTO) 0 % (0-10); EOSINOPHILS # (AUTO) 0.3 10^3/uL (0.0-0.3); EOSINOPHILS % (AUTO) 4 % (0-10); HEMATOCRIT 41 % (35-52); HEMOGLOBIN 13.7 g/dL (11.5-16.0); LYMPHOCYTES % (AUTO) 33 % (12-44); MEAN CORPUSCULAR HEMOGLOBIN 30 pg (25-34); MEAN CORPUSCULAR HGB CONC 33 g/dL (32-36); MEAN CORPUSCULAR VOLUME 92 fL (80-99); MEAN PLATELET VOLUME 10.2 fL (9.0-12.2); MONOCYTES # (AUTO) 0.6 10^3/uL (0.0-1.0); MONOCYTES % (AUTO) 6 % (0-12); NEUTROPHILS # (AUTO) 5.1 10^3/uL (1.8-7.8); NEUTROPHILS % (AUTO) 56 % (42-75); PLATELET COUNT 320 10^3/uL (130-400); WHITE BLOOD COUNT 9.1 10^3/uL (4.3-11.0)
[2021-12-22 10:22] VITALS: BP 137/83
[2021-12-22] MEDS ORDERED: morphine INJ 10 MG/ML 1ML (SYR OR VIAL) IVP STA (10:31)
[2021-12-22 10:43] LABS: ALBUMIN 4.2 GM/DL (3.2-4.5); BILIRUBIN,TOTAL 0.3 MG/DL (0.1-1.0); CALCIUM 8.8 MG/DL (8.5-10.1); CREATININE SERUM 0.58 MG/DL (0.60-1.30); MAGNESIUM 2.2 MG/DL (1.6-2.4); TOTAL PROTEIN 7.2 GM/DL (6.4-8.2)
--- NOTE | 2021-12-22 10:48 | Diagnostic Imaging Report ---
CLINICAL INDICATION: Patient with chest pain. EXAM: Portable chest x-ray, upright view. COMPARISON: Chest x-ray dated 11/20/2021. FINDINGS: Lungs/pleura: Lungs are clear. There is no pneumothorax. There is no pleural effusion. Mediastinum: Unremarkable. Pulmonary vasculature: Unremarkable. Heart: Unremarkable. Bones/extrathoracic soft tissue: Unremarkable. IMPRESSION: There is no radiographic evidence of acute cardiopulmonary process. Dictated by: Dictated on workstation # [id number]
[2021-12-22 11:01] LABS: INR 0.9 (0.8-1.4); PROTHROMBIN TIME PATIENT 12.9 SEC (12.2-14.7)
[2021-12-22 11:15] LABS: BILIRUBIN,URINE NEGATIVE (NEGATIVE); CLARITY,URINE CLOUDY; COLOR,URINE YELLOW; GLUCOSE, URINE (UA) NEGATIVE (NEGATIVE); KETONES,URINE NEGATIVE (NEGATIVE); LEUKOCYTE ESTERASE ,URINE NEGATIVE (NEGATIVE); NITRITE,URINE NEGATIVE (NEGATIVE); PROTEIN,URINE NEGATIVE (NEGATIVE)
[2021-12-22 11:24] LABS: BACTERIA,URINE MODERATE /HPF
[2021-12-22 11:35] LABS: AMPHETAMINE SCREEN, URINE NEGATIVE (NEGATIVE); BARBITURATE SCREEN URINE NEGATIVE (NEGATIVE); BENZODIAZEPINES SCREEN URINE NEGATIVE (NEGATIVE); CANNABINOID SCREEN, URINE NEGATIVE (NEGATIVE); COCAINE SCREEN URINE NEGATIVE (NEGATIVE); METHADONE STAT NEGATIVE (NEGATIVE); METHAMPHETAMINE SCREEN URINE S NEGATIVE (NEGATIVE); OPIATE SCREEN URINE NEGATIVE (NEGATIVE); OXYCODONE STAT NEGATIVE (NEGATIVE); PROPOXYPHENE STAT NEGATIVE (NEGATIVE); TRICYCLIC ANTIDEPRESSANTS SCRE NEGATIVE (NEGATIVE)
== END 2021-12-22 13:40 | disposition home or self-care (01) ==
LOC: EDUNIT# 10:02 → ER FS 10:03
DX: R07.9 Chest pain, unspecified (principal); I25.10 Atherosclerotic heart disease of native coronary artery without angina pectoris; Z56.3 Stressful work schedule; Z79.01 Long term (current) use of anticoagulants; Z79.82 Long term (current) use of aspirin; Z79.899 Other long term (current) drug therapy
CPT/HCPCS: 36415; 71045; 80053; 80306; 81000; 83735; 84484; 84703; 85025; 85379; 85610; 85730; 93005

== ENCOUNTER 2022-03-05 11:56 | Day surgery (SDC) | payer SELFPAY ==
[~2022-03-05] VITALS: Ht 162.6 cm; Wt 95.9 kg
[2022-03-05] VITALS (8 sets, daily range): BP systolic 108–125; BP diastolic 77–99
--- NOTE | 2022-03-05 12:24 | ED Chest Pain ---
General Chief Complaint: Chest Pain Stated Complaint: CP Nursing Triage Note: pt states cp that started about 0800, getting worse rated at 10, hx of a stent 1 yr ago. nausous Source: patient Exam Limitations: no limitations History of Present Illness Date Seen by Provider: Mar 05, 2022 Time Seen by Provider: 12:14 Initial Comments Patient is a 36-year-old female with a history of coronary artery disease x1 stent placement a year ago who follows with Dr. Jean-Baptiste who presents with a chief complaint of chest pressure and discomfort onset at about 8 AM this morning. Patient states that she was just getting up and ready for her day when she had gradual onset of worsening pressure to the mid chest that radiates into the back. She felt nauseous and short of breath. She tells me that she takes Plavix and baby aspirin daily. Nothing really makes her pain any better or any worse. Seen Dr. Jean-Baptiste for about 6 to 9 months. She does smoke. She has a significant family history for coronary artery disease in multiple family members. No recent illnesses such as fevers, chills, cough or congestion. No problems with bowel or bladder. No swelling in her legs. No recent travel or prolonged immobility. Currently rating her pain at a "10". All other review of systems reviewed and negative except as stated. Timing/Duration: 4-6 hours Severity/Quality: severe, pressure Location: back Activities at Onset: activity Prior CP/Workup: cardiac cath (Mild activity with stent) ASA po OXYGEN EQUIPMENT AIDE: Yes (Baby aspirin) NTG SL OXYGEN EQUIPMENT AIDE: No Associated Symptoms: nausea/vomiting (Nausea without vomiting) Allergies and Home Medications Allergies Coded Allergies: No Known Drug Allergies (Verified , 02/20/19) Patient Home Medication List Home Medication List Reviewed: Yes Acetaminophen (Tylenol Extra Strength) 500 Mg Tablet, 1,000 MG PO Q6H PRN for PAIN-MILD (1-4), (Reported) Entered as Reported by: FRANK WALLACE on 01/30/21 1443 Albuterol Sulfate (Proventil Hfa) 6.7 Gm Hfa.aer.ad, 2 PUFF INH Q6H PRN for SHORTNESS OF BREATH, (Reported) Entered as Reported by: FRANK WALLACE on 01/30/21 1443 Aspirin (Children's Aspirin) 81 Mg Tab.chew, 81 MG PO DAILY Prescribed by: YEN SPIVEY on 01/31/21 1550 Atorvastatin Calcium (Atorvastatin Calcium) 80 Mg Tablet, 80 MG PO HS Prescribed by: YEN SPIVEY on 01/31/21 1550 Cetirizine HCl (Zyrtec) 10 Mg Tablet, 10 MG PO DAILY PRN for ALLERGY SYMPTOMS, (Reported) Entered as Reported by: FRANK WALLACE on 01/30/21 1443 Clopidogrel Bisulfate (Clopidogrel) 75 Mg Tablet, 75 MG PO DAILY Prescribed by: YEN SPIVEY on 01/31/21 1550 Cyclobenzaprine HCl (Cyclobenzaprine HCl) 10 Mg Tablet, 10 MG PO Q8H PRN for SPASMS Prescribed by: ANGELES WASHINGTONSTWENCESLAO on 06/14/21 1709 Cyclobenzaprine HCl (Cyclobenzaprine HCl) 10 Mg Tablet, 10 MG PO Q8H PRN for SPASMS Prescribed by: ANGELES WASHINGTONSTWENCESLAO on 07/31/21 1605 Hydrocodone/Acetaminophen (Hydrocodone-Acetamin 5-325 mg) 1 Each Tablet, 1 TAB PO Q6H PRN for PAIN-SEVERE (8-10) Prescribed by: EMILIE STOREY on 02/13/22 1303 Ibuprofen (Ibuprofen) 200 Mg Tablet, 600 MG PO Q8H PRN for PAIN-MILD (1-4), (Reported) Entered as Reported by: FRANK WALLACE on 01/30/21 1443 Ibuprofen (Ibuprofen) 800 Mg Tablet, 800 MG PO Q8H PRN for PAIN Prescribed by: ANGELES WASHINGTONSTWENCESLAO on 07/31/21 1605 Metoprolol Succinate (Metoprolol Succinate) 25 Mg Tab.er.24h, 25 MG PO DAILY Prescribed by: YEN SPIVEY on 01/31/21 1550 Nicotine (Nicoderm Cq) 1 Each Patch.td24, 21 MG TD DAILY@0900 Prescribed by: YOON MAHER on 02/01/21 1054 Review of Systems Review of Systems Constitutional: see HPI EENTM: No Symptoms Reported Respiratory: Shortness of Air Cardiovascular: Chest Pain Gastrointestinal: Nausea 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: No Symptoms Reported Musculoskeletal: no symptoms reported Skin: no symptoms reported Psychiatric/Neurological: No Symptoms Reported All Other Systems Reviewed Negative Unless Noted: Yes Past Fzutmas-Zwzdco-Bmfogg Hx Patient Social History Tobacco Use?: Yes Tobacco type used: Cigarettes Smoking Status: Current Everyday Smoker Substance use?: No Alcohol Use?: No Immunizations Up To Date Tetanus Booster (TDap): Less than 5yrs PED Vaccines UTD: Yes First/Initial COVID19 Vaccinat: MAY 2021 Second COVID19 Vaccination Ilir: JUNE 2021 Third COVID19 Vaccination Date: MAY 2021 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[email or web address] Seasonal Allergies Seasonal Allergies: No Past Medical History Surgery/Hospitalization HX: Diverticulosis, diverticulitis, non-STEMI, coronary artery disease with one stent,headaches and migraines, anxiety and depression Surgeries: Yes Abdominal, Section, Coronary Stent, Gallbladder Respiratory: No Currently Using CPAP: No Currently Using BIPAP: No Cardiac: Yes Coronary Artery Disease Neurological: Yes Headaches /Migraines Last Menstrual Period: Feb 12, 2022 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 Disorders: No 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: No Gastrointestinal: Yes Diverticulosis Musculoskeletal: No Endocrine: No HEENT: No Loss of Vision: Denies Hearing Impairment: Denies Cancer: No Psychosocial: Yes Anxiety, Depression Integumentary: No Blood Disorders: No Adverse Reaction/Blood Tranf: No Family Medical History Arthritis 19 MOTHER GRANDMA-MATERAL Colon cancer GRANDP-MATERANL Completed stroke 19 FATHER Congenital disease 19 FATHER Congenital heart disease 19 FATHER Diabetes mellitus 19 FATHER GRANDMA-MATERAL Hypercholesterolemia Myocardial infarction 19 FATHER GRANDP-MATERANL Heart Disease, Cancer, Diabetes Physical Exam Vital Signs Vital Signs - First Documented 03/05/22 12:02 Temp 37.1 Pulse 90 Resp 18 B/P (MAP) 138/88 (105) Pulse Ox 100 O2 Delivery Room Air Capillary Refill : Less Than 3 Seconds Height, Weight, BMI Height: 5'5.00" Weight: 196lbs. 0.0oz. 88.204024yd; 34.00 BMI Method:Stated General Appearance: No Apparent Distress, WD/WN HEENT: PERRL/EOMI Neck: Normal Inspection Respiratory: Lungs Clear, Normal Breath Sounds, No Accessory Muscle Use, No Respiratory Distress Cardiovascular: Regular Rate, Rhythm Gastrointestinal: Normal Bowel Sounds, Non Tender, Soft Extremity: Normal Capillary Refill, Normal Inspection, Normal Range of Motion, Non Tender, No Calf Tenderness, No Pedal Edema Neurologic/Psychiatric: Alert, Oriented x3, No Motor/Sensory Deficits, Normal Mood/Affect Skin: Normal Color, Warm/Dry Progress/Results/Core Measures Results/Orders Lab Results Laboratory Tests Test 03/05/22 12:10 Range/Units White Blood Count 12.4 H 4.3-11.0 10^3/uL Red Blood Count 4.52 3.80-5.11 10^6/uL Hemoglobin 13.9 11.5-16.0 g/dL Hematocrit 42 35-52 % Mean Corpuscular Volume 93 80-99 fL Mean Corpuscular Hemoglobin 31 25-34 pg Mean Corpuscular Hemoglobin Concent 33 32-36 g/dL Red Cell Distribution Width 13.4 10.0-14.5 % Platelet Count 402 H 130-400 10^3/uL Mean Platelet Volume 10.7 9.0-12.2 fL Immature Granulocyte % (Auto) 0 % Neutrophils (%) (Auto) 63 42-75 % Lymphocytes (%) (Auto) 25 12-44 % Monocytes (%) (Auto) 7 0-12 % Eosinophils (%) (Auto) 4 0-10 % Basophils (%) (Auto) 1 0-10 % Neutrophils # (Auto) 7.8 1.8-7.8 10^3/uL Lymphocytes # (Auto) 3.1 1.0-4.0 10^3/uL Monocytes # (Auto) 0.8 0.0-1.0 10^3/uL Eosinophils # (Auto) 0.4 H 0.0-0.3 10^3/uL Basophils # (Auto) 0.1 0.0-0.1 10^3/uL Immature Granulocyte # (Auto) 0.0 0.0-0.1 10^3/uL Prothrombin Time 13.1 12.2-14.7 SEC INR Comment 1.0 0.8-1.4 Activated Partial Thromboplast Time 29 24-35 SEC Sodium Level 137 135-145 MMOL/L Potassium Level 4.2 3.6-5.0 MMOL/L Chloride Level 104 98-107 MMOL/L Carbon Dioxide Level 21 21-32 MMOL/L Anion Gap 12 5-14 MMOL/L Blood Urea Nitrogen 5 L 7-18 MG/DL Creatinine 0.67 0.60-1.30 MG/DL Estimat Glomerular Filtration Rate 115 BUN/Creatinine Ratio 7 Glucose Level 88 70-105 MG/DL Calcium Level 9.3 8.5-10.1 MG/DL Corrected Calcium 9.1 8.5-10.1 MG/DL Magnesium Level 2.2 1.6-2.4 MG/DL Total Bilirubin 0.3 0.1-1.0 MG/DL Aspartate Amino Transf (AST/SGOT) 14 5-34 U/L Alanine Aminotransferase (ALT/SGPT) 16 0-55 U/L Alkaline Phosphatase 59 40-136 U/L Myoglobin 25.9 10.0-92.0 NG/ML Troponin I < 0.028 <0.028 NG/ML Total Protein 7.1 6.4-8.2 GM/DL Albumin 4.2 3.2-4.5 GM/DL My Orders Orders - HOUSTON BRASWELL MD Cbc With Automated Diff (03/05/22 12:22) Magnesium (03/05/22 12:22) Chest 1 View, Ap/Pa Only (03/05/22 12:22) Ekg Tracing (03/05/22 12:22) Comprehensive Metabolic Panel (03/05/22 12:22) Myoglobin Serum (03/05/22 12:22) Protime With Inr (03/05/22 12:22) Partial Thromboplastin Time (03/05/22 12:22) O2 (03/05/22 12:22) Monitor-Rhythm Ecg Trace Only (03/05/22 12:22) Ed Iv/Invasive Line Start (03/05/22 12:22) Troponin I Marely (03/05/22 12:22) Aspirin Chewable Tablet (Baby Aspirin Ch (03/05/22 12:30) Nitroglycerin 0.4 Mg Btl 25's (Nitrostat (03/05/22 12:30) Sucralfate Tablet (Carafate Tablet) (03/05/22 13:30) Lidocaine 2% Viscous 15 Ml (Xylocaine Vi (03/05/22 13:30) Antacid Suspension (Mylanta Suspension (03/05/22 13:30) Heparin Drip [id number] Unit/500ml (Heparin (03/05/22 14:15) Heparin (Bolus Per Protocol) (Heparin (B (03/05/22 14:15) Morphine Injection (Morphine Injection (03/05/22 14:13) Ns Iv 1000 Ml (Sodium Chloride 0.9%) (03/05/22 14:13) Medications Given in ED Vital Signs/I&O 03/05/22 03/05/22 12:02 14:33 Temp 37.1 37.1 Pulse 90 Resp 18 B/P (MAP) 138/88 (105) Pulse Ox 100 O2 Delivery Room Air 03/06/22 00:00 Intake Total 6000 ml Balance 6000 ml Blood Pressure Mean: 105 Admisison Planning May Need Admission (Planning): 14:12 Progress Progress Note #1: Time: 13:29 Progress Note Patient states that the sublingual nitro brought her discomfort from a "10" down to a "6". Will add GI cocktail to see if this is an esophageal component. Progress Note #2: Time: 14:05 Progress Note Patient reassessed and still has chest pressure she rates at a "7". Vital signs remained stable. Labs reviewed, everything is within normal limits, negative troponin. Her troponin was drawn at about the 4-hour yoselin after the onset of chest pain. Will discuss with Dr. Jean-Baptiste. 1412 Would like heparin and morphine - will see after clinic. ASked to please keep her in the ER Initial ECG Impression Date: Mar 05, 2022 Initial ECG Impression Time: 12:15 Initial ECG Rate: 87 Initial ECG Rhythm: Normal Sinus Initial ECG Intervals: Normal Initial ECG Impression: Nonspecific Changes Comment Isolated T wave inversion lead III. No ST segment elevation or depression is noted. No ectopy. Diagnostic Imaging Diagonstic Imaging: Xray Plain Films/CT/US/NM/MRI: chest Comments [facility]. [place], [place] NAME: MARCUS PADILLA [employer] REC#: [id number] PT STATUS: REG ER : 1985 PHYSICIAN: HOUSTON BRASWELL MD ADMIT DATE: 03/05/22/ER Draft Date of Exam:03/05/22 CHEST 1 VIEW, AP/PA ONLY INDICATION: Chest pain. TIME OF EXAM: 12:36 p.m. COMPARISON: Correlation is made to prior chest of 12/22/2021. FINDING: The heart size is normal. The pulmonary vascularity is unremarkable. The lungs are clear. No infiltrate, effusion or pneumothorax is detected. IMPRESSION: No acute cardiopulmonary process is detected. Dictated on workstation # [id number] Dict: 03/05/22 1240 Trans: 03/05/22 1247 [id number] Interpreted by: PHILLIP ELISE MD Electronically signed by: Departure Impression Primary Impression: Chest pain Qualified Codes: R07.9 - Chest pain, unspecified Additional Impression: History of coronary artery disease Disposition: ADMITTED INPATIENT Condition: Stable Admissions Decision to Admit Reason: Admit from ER (General) Decision to Admit/Date: Mar 05, 2022 Time/Decision to Admit Time: 14:05 Departure-Patient Inst. Referrals: ERIC CALDERON MD (PCP/Family) Primary Care Physician HOUSTON BRASWELL MD Mar 05, 2022 12:24
[2022-03-05 12:28] LABS: BASOPHILS # (AUTO) 0.1 10^3/uL (0.0-0.1); BASOPHILS % (AUTO) 1 % (0-10); EOSINOPHILS # (AUTO) 0.4 10^3/uL (0.0-0.3); EOSINOPHILS % (AUTO) 4 % (0-10); HEMATOCRIT 42 % (35-52); HEMOGLOBIN 13.9 g/dL (11.5-16.0); LYMPHOCYTES # (AUTO) 3.1 10^3/uL (1.0-4.0); LYMPHOCYTES % (AUTO) 25 % (12-44); MEAN CORPUSCULAR HEMOGLOBIN 31 pg (25-34); MEAN CORPUSCULAR HGB CONC 33 g/dL (32-36); MEAN CORPUSCULAR VOLUME 93 fL (80-99); MEAN PLATELET VOLUME 10.7 fL (9.0-12.2); MONOCYTES # (AUTO) 0.8 10^3/uL (0.0-1.0); MONOCYTES % (AUTO) 7 % (0-12); NEUTROPHILS # (AUTO) 7.8 10^3/uL (1.8-7.8); NEUTROPHILS % (AUTO) 63 % (42-75); PLATELET COUNT 402 10^3/uL (130-400); WHITE BLOOD COUNT 12.4 10^3/uL (4.3-11.0)
[2022-03-05] MEDS ORDERED: NITROGLYCERIN 0.4 MG SL TABS BTL 25'S SL PRN (12:30)
[2022-03-05] MEDS ORDERED: ASPIRIN 81 MG CHEW (CHILDREN'S ASA) PO ONE (12:30)
[2022-03-05 12:38] LABS: ALBUMIN 4.2 GM/DL (3.2-4.5); POTASSIUM 4.2 MMOL/L (3.6-5.0)
[2022-03-05 12:39] LABS: CALCIUM 9.3 MG/DL (8.5-10.1)
[2022-03-05 12:40] LABS: TOTAL PROTEIN 7.1 GM/DL (6.4-8.2)
[2022-03-05 12:42] LABS: BILIRUBIN,TOTAL 0.3 MG/DL (0.1-1.0); PROTHROMBIN TIME PATIENT 13.1 SEC (12.2-14.7)
[2022-03-05 12:44] LABS: CREATININE SERUM 0.67 MG/DL (0.60-1.30)
[2022-03-05 12:46] LABS: MAGNESIUM 2.2 MG/DL (1.6-2.4)
--- NOTE | 2022-03-05 12:47 | Diagnostic Imaging Report ---
INDICATION: Chest pain. TIME OF EXAM: 12:36 p.m. COMPARISON: Correlation is made to prior chest of 12/22/2021. FINDING: The heart size is normal. The pulmonary vascularity is unremarkable. The lungs are clear. No infiltrate, effusion or pneumothorax is detected. IMPRESSION: No acute cardiopulmonary process is detected. Dictated by: Dictated on workstation # [id number]
[2022-03-05] MEDS ORDERED: ANTACID SUSP 30 ML UDC (MYLANTA) PO ONE (13:30)
[2022-03-05] MEDS ORDERED: SUCRALFATE 1 GM (CARAFATE) TAB PO ONE (13:30)
[2022-03-05] MEDS ORDERED: LIDOCAINE 2% VISCOUS 15 ML UDC PO ONE (13:30)
[2022-03-05] MEDS ORDERED: morphine INJ 10 MG/ML 1ML (SYR OR VIAL) IVP STA (14:13)
[2022-03-05] MEDS ORDERED: NS IV 1000 ML 1,000 ML IV STA (14:13)
[2022-03-05] MEDS ORDERED: HEParin 1000 UNIT/ML (10ML VIAL) FOR BOLUS IV PRN (14:15)
[2022-03-05] MEDS ORDERED: HEParin DRIP 25000 UNIT/500ML 500 ML IV SCH (14:15)
--- NOTE | 2022-03-05 16:05 | Consultation-Cardiology ---
HPI-Cardiology Cardiology Consultation: Date of Consultation 03/05/22 Date of Admission Attending Physician Admitting Physician Alberto Huerta MD Consulting Physician YEN ORTIZ Review of Systems-Cardiology All Other Systems Reviewed Negative Unless Noted: Yes TPV-Ryoval-Pvrxdd Hx Patient Social History Smoking Status: Current Everyday Smoker 2nd Hand Smoke Exposure: No Have you traveled recently?: No Alcohol Use?: No Tobacco type used: Cigarettes Immunizations Up To Date Tetanus Booster (TDap): Less than 5yrs Past Medical History PMH As described under Assessment. Family Medical History Family Medical History: She reports her father had CAD first diagnosed in his 40's. She reports he had a CABG. Family History: Arthritis 19 MOTHER GRANDMA-MATERAL Colon cancer GRANDP-MATERANL Completed stroke 19 FATHER Congenital disease 19 FATHER Congenital heart disease 19 FATHER Diabetes mellitus 19 FATHER GRANDMA-MATERAL Hypercholesterolemia Myocardial infarction 19 FATHER GRANDP-MATERANL Allergies and Home Medications Allergies Coded Allergies: No Known Drug Allergies (Verified , 02/20/19) Patient Home Medication List Acetaminophen (Tylenol Extra Strength) 500 Mg Tablet, 1,000 MG PO Q6H PRN for PAIN-MILD (1-4), (Reported) Entered as Reported by: FRANK WALLACE on 01/30/21 1443 Albuterol Sulfate (Proventil Hfa) 6.7 Gm Hfa.aer.ad, 2 PUFF INH Q6H PRN for SHORTNESS OF BREATH, (Reported) Entered as Reported by: FRANK WALLACE on 01/30/21 1443 Aspirin (Children's Aspirin) 81 Mg Tab.chew, 81 MG PO DAILY Prescribed by: YEN SPIVEY on 01/31/21 1550 Atorvastatin Calcium (Atorvastatin Calcium) 80 Mg Tablet, 80 MG PO HS Prescribed by: YEN SPIVEY on 01/31/21 1550 Cetirizine HCl (Zyrtec) 10 Mg Tablet, 10 MG PO DAILY PRN for ALLERGY SYMPTOMS, (Reported) Entered as Reported by: FRANK WALLACE on 01/30/21 1443 Clopidogrel Bisulfate (Clopidogrel) 75 Mg Tablet, 75 MG PO DAILY Prescribed by: YEN SPIVEY on 01/31/21 1550 Cyclobenzaprine HCl (Cyclobenzaprine HCl) 10 Mg Tablet, 10 MG PO Q8H PRN for SPASMS Prescribed by: ANGELES CONTRERAS on 06/14/21 1709 Cyclobenzaprine HCl (Cyclobenzaprine HCl) 10 Mg Tablet, 10 MG PO Q8H PRN for SPASMS Prescribed by: ANGELES CONTRERAS on 07/31/21 1605 Hydrocodone/Acetaminophen (Hydrocodone-Acetamin 5-325 mg) 1 Each Tablet, 1 TAB PO Q6H PRN for PAIN-SEVERE (8-10) Prescribed by: EMILIE STOREY on 02/13/22 1303 Ibuprofen (Ibuprofen) 200 Mg Tablet, 600 MG PO Q8H PRN for PAIN-MILD (1-4), (Reported) Entered as Reported by: FRANK WALLACE on 01/30/21 1443 Ibuprofen (Ibuprofen) 800 Mg Tablet, 800 MG PO Q8H PRN for PAIN Prescribed by: ANGELES WASHINGTONSTWENCESLAO on 07/31/21 1605 Metoprolol Succinate (Metoprolol Succinate) 25 Mg Tab.er.24h, 25 MG PO DAILY Prescribed by: YEN SPIVEY on 01/31/21 1550 Nicotine (Nicoderm Cq) 1 Each Patch.td24, 21 MG TD DAILY@0900 Prescribed by: YOON MAHER on 02/01/21 1054 Physical Exam-Cardiology Physical Exam Vital Signs/I&O 03/05/22 03/06/22 03/06/22 03/06/22 20:00 00:00 00:00 01:00 Pulse 79 70 Resp 25 B/P (MAP) 112/73 (86) Pulse Ox 97 O2 Delivery Room Air Room Air 03/06/22 03/06/22 04:00 04:00 Pulse 80 Resp 37 B/P (MAP) 107/80 (89) Pulse Ox 97 O2 Delivery Room Air 03/06/22 00:00 Intake Total 6240 ml Balance 6240 ml Capillary Refill : Less Than 3 Seconds Data Review Labs Laboratory Tests 03/05/22 12:10: White Blood Count 12.4H, Red Blood Count 4.52, Hemoglobin 13.9, Hematocrit 42, Mean Corpuscular Volume 93, Mean Corpuscular Hemoglobin 31, Mean Corpuscular Hemoglobin Concent 33, Red Cell Distribution Width 13.4, Platelet Count 402H, Mean Platelet Volume 10.7, Immature Granulocyte % (Auto) 0, Neutrophils (%) (Auto) 63, Lymphocytes (%) (Auto) 25, Monocytes (%) (Auto) 7, Eosinophils (%) (Auto) 4, Basophils (%) (Auto) 1, Neutrophils # (Auto) 7.8, Lymphocytes # (Auto) 3.1, Monocytes # (Auto) 0.8, Eosinophils # (Auto) 0.4H, Basophils # (Auto) 0.1, Immature Granulocyte # (Auto) 0.0, Prothrombin Time 13.1, INR Comment 1.0, Activated Partial Thromboplast Time 29, Sodium Level 137, Potassium Level 4.2, Chloride Level 104, Carbon Dioxide Level 21, Anion Gap 12, Blood Urea Nitrogen 5L, Creatinine 0.67, Estimat Glomerular Filtration Rate 115, BUN/Creatinine Ratio 7, Glucose Level 88, Calcium Level 9.3, Corrected Calcium 9.1, Magnesium Level 2.2, Total Bilirubin 0.3, Aspartate Amino Transf (AST/SGOT) 14, Alanine Aminotransferase (ALT/SGPT) 16, Alkaline Phosphatase 59, Myoglobin 25.9, Troponin I < 0.028, Total Protein 7.1, Albumin 4.2 03/06/22 04:25: White Blood Count 10.1, Red Blood Count 4.10, Hemoglobin 12.4, Hematocrit 38, Mean Corpuscular Volume 93, Mean Corpuscular Hemoglobin 30, Mean Corpuscular Hemoglobin Concent 33, Red Cell Distribution Width 13.4, Platelet Count 321, Mean Platelet Volume 10.8, Immature Granulocyte % (Auto) 0, Neutrophils (%) (Auto) 60, Lymphocytes (%) (Auto) 28, Monocytes (%) (Auto) 7, Eosinophils (%) (Auto) 5, Basophils (%) (Auto) 1, Neutrophils # (Auto) 6.1, Lymphocytes # (Auto) 2.8, Monocytes # (Auto) 0.7, Eosinophils # (Auto) 0.5H, Basophils # (Auto) 0.1, Immature Granulocyte # (Auto) 0.0, Sodium Level 137, Potassium Level 3.7, Chloride Level 107, Carbon Dioxide Level 16L, Anion Gap 14, Blood Urea Nitrogen 7, Creatinine 0.64, Estimat Glomerular Filtration Rate 117, BUN/Creatinine Ratio 11, Glucose Level 99, Calcium Level 8.4L, Magnesium Level 2.1 Radiology NAME: MARCUS PADILLA [facility] REC#: [id number] PT STATUS: REG ER : 1985 PHYSICIAN: HOUSTON BRASWELL MD ADMIT DATE: 03/05/22/ER Draft Date of Exam:03/05/22 CHEST 1 VIEW, AP/PA ONLY INDICATION: Chest pain. TIME OF EXAM: 12:36 p.m. COMPARISON: Correlation is made to prior chest of 12/22/2021. FINDING: The heart size is normal. The pulmonary vascularity is unremarkable. The lungs are clear. No infiltrate, effusion or pneumothorax is detected. IMPRESSION: No acute cardiopulmonary process is detected. Dictated on workstation # [id number] Dict: 03/05/22 1240 Trans: 03/05/22 1247 [id number] Interpreted by: PHILLIP ELISE MD Electronically signed by: A/P-Cardiology Assessment/Admission Diagnosis CAD - Ac NSTEMI on 01/30/21 - Card cath 01/31/21: 99% prox LAD stented successfully with Gloria 2.75 x 12 stent, mildly ectatic proximal LCX, codominant RCA w/o significant disease, LVEDP 18 mmHg, LVEF 60% Echo of 01/31/20: LVEF 60-65%, PASP 25-30 mmHg Tobaccoism - cessation advised Pre-eclempsia with of 2003 Chronic ALANIZ Chronic back pain Family h/o CAD (father in his 40's) Clinical Quality Measures AMI/AHF: ASA po Prior to arrival: Yes (Baby aspirin) YEN SPIVEY Mar 05, 2022 16:05
[2022-03-05] MEDS ORDERED: NS IV 1000 ML 1,000 ML ONE (16:30)
[2022-03-05] MEDS ORDERED: fentaNYL INJ 100 MCG/2 ML AMP ONE (16:30)
[2022-03-05] MEDS ORDERED: CLOPIDOGREL 75 MG (PLAVIX) TABLET PO NR (16:30)
[2022-03-05] MEDS ORDERED: LIDOCAINE 1% INJ 20 ML VIAL ONE (16:30)
[2022-03-05] MEDS ORDERED: MIDAZOLAM 5 MG/5 ML (VERSED) VIAL ONE (16:30)
[2022-03-05] MEDS ORDERED: HEParin (CATH LAB) 1,000 ML IV ONE (16:33)
--- NOTE | 2022-03-05 17:14 | Cardiology History & Physical ---
HPI-Cardiology Cardiology H&P Date of Admission 03/05/22 Primary Care Physician Alberto Huerta MD Attending Physician Jovana Jean-Baptiste MD, MA FACP [facility] CCDS Consulting Physician [facility] CC: Chest pain HPI 36 yo woman with known CAD and h/o LAD stenting at time of presentation with [place] in 2019 presents with chest pain that woke her in the morning. It waxed and waned and did not resolve. Was more severe by the time she had presented to the ER in the early afternoon - rated it as 10/10. Partial relief with s/l NTG. Present in the mid chest. Non radiating. Similar to what she had in 2019. Not associated with vomiting. Chronic exertional shortness of breath. No swelling. N o palp or syncope. Chronic smoker who continues to smoke Review of Systems-Cardiology Review of Systems Constitutional: malaise, tiredness; No weight loss, No weight gain Eyes: No vision change Ears/Nose/Throat: No ear discharge, No nasal drainage, No recent hearing loss Respiratory: As described under HPI Cardiovascular: As described under HPI Gastrointestinal: As described under HPI 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: No dysuria, No hematuria Musculoskeletal: No back pain, No joint pain Skin: No rash, No ulcerations Psychiatric/Neurological: No seizure, No focal weakness, No syncope Hematologic: No bleeding abnormalities All Other Systems Reviewed Negative Unless Noted: Yes WZN-Jtljdy-Besyin Hx Patient Social History Smoking Status: Current Everyday Smoker 2nd Hand Smoke Exposure: No Have you traveled recently?: No Alcohol Use?: No Tobacco type used: Cigarettes Immunizations Up To Date Tetanus Booster (TDap): Less than 5yrs Past Medical History PMH As described under Assessment. Family Medical History Family Medical History: She reports her father had CAD first diagnosed in his 40's. She reports he had a CABG. Family History: Arthritis 19 MOTHER GRANDMA-MATERAL Colon cancer GRANDP-MATERANL Completed stroke 19 FATHER Congenital disease 19 FATHER Congenital heart disease 19 FATHER Diabetes mellitus 19 FATHER GRANDMA-MATERAL Hypercholesterolemia Myocardial infarction 19 FATHER GRANDP-MATERANL Allergies and Home Medications Allergies Coded Allergies: No Known Drug Allergies (Verified , 02/20/19) Patient Home Medication List Home Medication List Reviewed: Yes Acetaminophen (Tylenol Extra Strength) 500 Mg Tablet, 1,000 MG PO Q6H PRN for PAIN-MILD (1-4), (Reported) Entered as Reported by: FRANK WALLACE on 01/30/21 1443 Albuterol Sulfate (Proventil Hfa) 6.7 Gm Hfa.aer.ad, 2 PUFF INH Q6H PRN for SHORTNESS OF BREATH, (Reported) Entered as Reported by: FRANK WALLACE on 01/30/21 144 Aspirin (Children's Aspirin) 81 Mg Tab.chew, 81 MG PO DAILY Prescribed by: YEN SPIVEY on 01/31/21 1550 Atorvastatin Calcium (Atorvastatin Calcium) 80 Mg Tablet, 80 MG PO HS Prescribed by: YEN SPIVEY on 01/31/21 1550 Cetirizine HCl (Zyrtec) 10 Mg Tablet, 10 MG PO DAILY PRN for ALLERGY SYMPTOMS, (Reported) Entered as Reported by: FRANK WALLACE on 01/30/21 144 Clopidogrel Bisulfate (Clopidogrel) 75 Mg Tablet, 75 MG PO DAILY Prescribed by: YEN SPIVEY on 01/31/21 1550 Cyclobenzaprine HCl (Cyclobenzaprine HCl) 10 Mg Tablet, 10 MG PO Q8H PRN for SPASMS Prescribed by: ANGELES CONTRERAS on 06/14/21 1709 Cyclobenzaprine HCl (Cyclobenzaprine HCl) 10 Mg Tablet, 10 MG PO Q8H PRN for SPASMS Prescribed by: ANGELES CONTRERAS on 07/31/21 1605 Hydrocodone/Acetaminophen (Hydrocodone-Acetamin 5-325 mg) 1 Each Tablet, 1 TAB PO Q6H PRN for PAIN-SEVERE (8-10) Prescribed by: EMILIE STOREY on 02/13/22 1303 Ibuprofen (Ibuprofen) 200 Mg Tablet, 600 MG PO Q8H PRN for PAIN-MILD (1-4), (R eported) Entered as Reported by: FRANK WALLACE on 01/30/21 144 Ibuprofen (Ibuprofen) 800 Mg Tablet, 800 MG PO Q8H PRN for PAIN Prescribed by: ANGELES CONTRERAS on 07/31/21 1605 Metoprolol Succinate (Metoprolol Succinate) 25 Mg Tab.er.24h, 25 MG PO DAILY Prescribed by: YEN SPIVEY on 01/31/21 1550 Nicotine (Nicoderm Cq) 1 Each Patch.td24, 21 MG TD DAILY@0900 Prescribed by: YOON MAHER on 02/01/21 1054 Physical Exam-Cardiology Physical Exam Vital Signs/I&O 03/05/22 03/05/22 03/05/22 12:02 14:33 16:58 Temp 37.1 37.1 37.1 Pulse 90 89 Resp 18 18 B/P (MAP) 138/88 (105) 125/98 Pulse Ox 100 98 O2 Delivery Room Air Room Air Capillary Refill : Less Than 3 Seconds Constitutional: AAO x 3, well-developed, well-nourished HEENT: EOMI, hearing is well preserved Neck: carotid pulses are 2 + bilaterally, with good upstrokes Respiratory: No accessory muscle use; other (fair, bilat air entry) Cardiovascular: regular rate-rhythm, S1 and S2, systolic murmur (soft MARCELINO at card base) Gastrointestinal: No tender; soft; No guarding, No rebound; audible bowel sounds Extremities: No clubbing, No cyanosis Neurologic/Psychiatric: oriented x 3, power is 5/5 both on sides Skin: No rash on exposed areas, No ulcerations on exposed areas Data Review Labs Laboratory Tests 03/05/22 12:10: White Blood Count 12.4H, Red Blood Count 4.52, Hemoglobin 13.9, Hematocrit 42, Mean Corpuscular Volume 93, Mean Corpuscular Hemoglobin 31, Mean Corpuscular Hemoglobin Concent 33, Red Cell Distribution Width 13.4, Platelet Count 402H, Mean Platelet Volume 10.7, Immature Granulocyte % (Auto) 0, Neutrophils (%) (Auto) 63, Lymphocytes (%) (Auto) 25, Monocytes (%) (Auto) 7, Eosinophils (%) (Auto) 4, Basophils (%) (Auto) 1, Neutrophils # (Auto) 7.8, Lymphocytes # (Auto) 3.1, Monocytes # (Auto) 0.8, Eosinophils # (Auto) 0.4H, Basophils # (Auto) 0.1, Immature Granulocyte # (Auto) 0.0, Prothrombin Time 13.1, INR Comment 1.0, Activated Partial Thromboplast Time 29, Sodium Level 137, Potassium Level 4.2, Chloride Level 104, Carbon Dioxide Level 21, Anion Gap 12, Blood Urea Nitrogen 5L, Creatinine 0.67, Estimat Glomerular Filtration Rate 115, BUN/Creatinine Ratio 7, Glucose Level 88, Calcium Level 9.3, Corrected Calcium 9.1, Magnesium Level 2.2, Total Bilirubin 0.3, Aspartate Amino Transf (AST/SGOT) 14, Alanine Aminotransferase (ALT/SGPT) 16, Alkaline Phosphatase 59, Myoglobin 25.9, Troponin I < 0.028, Total Protein 7.1, Albumin 4.2 Laboratory Tests 03/05/22 12:10 A/P-Cardiology Assessment/Admission Diagnosis Chest pain - Ac cor syndrome suspected CAD - Ac NSTEMI on 01/30/21 - Card cath 01/31/21: 99% prox LAD stented successfully with Gloria 2.75 x 12 stent, mildly ectatic proximal LCX, codominant RCA w/o significant disease, LVEDP 18 mmHg, LVEF 60% Echo of 01/31/20: LVEF 60-65%, PASP 25-30 mmHg Tobaccoism - cessation advised Pre-eclempsia with of 2003 Chronic ALANIZ Chronic back pain Family h/o CAD (father in his 40's) Admission Status: Observation Discussion and Recomendations * Urgent cath recommended. Reviewed rationale, procedure, risks, benefits, poten tial complications, and alternatives of card cath and possible ad hoc cor intervention. She understands and provides informed consent * Advised to quit smoking immediately and completely Clinical Quality Measures AMI/AHF: ASA po Prior to arrival: Yes (Baby aspirin) JOVANA JEAN-BAPTISTE MD FACP FAC CCDS Mar 05, 2022 17:14
[2022-03-05] MEDS ORDERED: CYCLOBENZAPRINE 10 MG (FLEXERIL) TAB PO PRN (17:45)
[2022-03-05] MEDS ORDERED: PATIENT MAY USE OWN MEDS, ALL PO SCH (17:45)
[2022-03-05] MEDS ORDERED: TEMAZEPAM 15 MG (RESTORIL) CAP PO PRN (17:45)
[2022-03-05] MEDS: NS IV 1000 ML 1,000 ML IV SCH (17:48)
--- NOTE | 2022-03-05 18:27 | CARDIAC CATHETERIZATION ---
DATE OF SERVICE: CARDIAC CATHETERIZATION REPORT The patient is a 36-year-old lady, who has a known history of coronary artery disease and has continuing risk factors. She presented with symptoms suggestive of unstable angina. Cardiac catheterization was carried out after having obtained an informed consent. DESCRIPTION OF PROCEDURE: She was brought to the cardiac catheterization laboratory in a fasting state. Right groin was prepared and draped in the usual sterile fashion. Lidocaine 1% was used for local anesthesia. Modified Seldinger technique was used to advance a 5-Ugandan sheath in the right femoral artery, 5-Ugandan JL4 catheter for left angiography, 5-Ugandan JR4 catheter for right coronary angiography, 5-Ugandan pigtail catheter was used for left heart catheterization, and left ventricular angiography. Angiography of the right femoral artery was carried out through the sheath. The site of sheath deployment did not appear suitable for Mynx. Manual pressure was used to achieve hemostasis. She tolerated the procedure well. HEMODYNAMICS: Left ventricular end-diastolic pressure following coronary angiography was 18 mmHg. There was no significant pressure gradient on pullback across the aortic valve. Ascending aortic pressure was 138/89 with a mean of 112 mmHg. CORONARY ANGIOGRAPHY: Left main coronary artery, which is free of significant disease. Left anterior descending artery, there is patent stent in the proximal left anterior descending that is known to be Gloria 2.75 x 12 mm that was placed in 2020. The stent is patent and free of significant disease. Left anterior descending artery has mild diffuse ectasia. The right coronary artery is codominant with the left circumflex and does not exhibit significant disease. Left ventricular end-diastolic pressure is 18 mmHg. Left ventricular ejection fraction is 60%. LEFT VENTRICULAR ANGIOGRAPHY: Left ventricular angiography was carried out in the right anterior oblique projection. Global left ventricular systolic function normal. No regional wall motion abnormality was seen. Left ventricular ejection fraction is approximately 60%. CONCLUSIONS: 1. Mild coronary artery disease, including mild ectasia of codominant left circumflex. There is a patent stent in the proximal left anterior descending that is known to be Gloria 2.75 x 12 mm stent that was placed in 2020. 2. Left ventricular end-diastolic pressure 18 mmHg. 3. Left ventricular ejection fraction of 60%. DISCUSSION AND RECOMMENDATIONS: Based on results of the study, it appears appropriate to continue a conservative approach. Risk factor modification has been reviewed. She has been advised to quit smoking. Dual antiplatelet therapy has been continued. Beta bhakti and statin therapy is being continued. Job ID: [id number] DocumentID: [id number] Dictated Date: 03/05/2022 18:03:19 [employer] Sales Associate Date: 03/05/2022 18:26:52 Dictated By: RASHAWN HOLGUIN MD, MA, FACP, FACC,
[2022-03-05] MEDS ORDERED: PANTOPRAZOLE 40 MG (PROTONIX) TAB PO NR (18:30)
[2022-03-05] MEDS: HYDROcodone/APAP 5 MG/325 MG (LORTAB) TAB PO PRN (19:56)
[2022-03-05] MEDS ORDERED: NICOTINE 14 MG (NICODERM) PATCH TD SCH (21:00)
[2022-03-06] VITALS: BP 112/73
[2022-03-06] MEDS: HYDROcodone/APAP 5 MG/325 MG (LORTAB) TAB PO PRN (03:08)
[2022-03-06 04:00] VITALS: BP 107/80
[2022-03-06 04:51] LABS: BASOPHILS # (AUTO) 0.1 10^3/uL (0.0-0.1); BASOPHILS % (AUTO) 1 % (0-10); EOSINOPHILS # (AUTO) 0.5 10^3/uL (0.0-0.3); EOSINOPHILS % (AUTO) 5 % (0-10); HEMATOCRIT 38 % (35-52); HEMOGLOBIN 12.4 g/dL (11.5-16.0); LYMPHOCYTES # (AUTO) 2.8 10^3/uL (1.0-4.0); LYMPHOCYTES % (AUTO) 28 % (12-44); MEAN CORPUSCULAR HEMOGLOBIN 30 pg (25-34); MEAN CORPUSCULAR HGB CONC 33 g/dL (32-36); MEAN CORPUSCULAR VOLUME 93 fL (80-99); MEAN PLATELET VOLUME 10.8 fL (9.0-12.2); MONOCYTES # (AUTO) 0.7 10^3/uL (0.0-1.0); MONOCYTES % (AUTO) 7 % (0-12); NEUTROPHILS # (AUTO) 6.1 10^3/uL (1.8-7.8); NEUTROPHILS % (AUTO) 60 % (42-75); PLATELET COUNT 321 10^3/uL (130-400); WHITE BLOOD COUNT 10.1 10^3/uL (4.3-11.0)
[2022-03-06 05:10] LABS: POTASSIUM 3.7 MMOL/L (3.6-5.0)
[2022-03-06 05:12] LABS: CALCIUM 8.4 MG/DL (8.5-10.1)
[2022-03-06 05:16] LABS: CREATININE SERUM 0.64 MG/DL (0.60-1.30)
[2022-03-06 05:18] LABS: MAGNESIUM 2.1 MG/DL (1.6-2.4)
[2022-03-06] MEDS: NS IV 1000 ML 1,000 ML IV SCH (07:00)
[2022-03-06 08:57] VITALS: BP 125/91
[2022-03-06] MEDS ORDERED: ASPIRIN 81 MG CHEW (CHILDREN'S ASA) PO SCH (09:00)
[2022-03-06] MEDS ORDERED: PANTOPRAZOLE 40 MG (PROTONIX) TAB PO SCH (09:00)
[2022-03-06] MEDS ORDERED: PATCH REMOVAL TP SCH (09:00)
[2022-03-06] MEDS ORDERED: CLOPIDOGREL 75 MG (PLAVIX) TABLET PO SCH (09:00)
--- NOTE | 2022-03-06 09:26 | Progress Note - Cardiology ---
Cardiology SOAP Progress Note Subjective: No cp or palp or syncope or shortness of breath No leg or groin discomfort Wishes to go home Objective: I&O/Vital Signs 03/06/22 03/06/22 03/06/22 03/06/22 00:00 00:00 01:00 04:00 Pulse 79 70 Resp 25 B/P (MAP) 112/73 (86) Pulse Ox 97 O2 Delivery Room Air Room Air 03/06/22 03/06/22 03/06/22 03/06/22 04:00 07:00 08:57 09:00 Pulse 80 70 74 Resp 37 20 B/P (MAP) 107/80 (89) 125/91 (102) Pulse Ox 97 97 O2 Delivery Room Air Room Air 03/06/22 00:00 Intake Total 6240 ml Balance 6240 ml Weight (Pounds): 196 Weight (Ounces): 0.0 Weight (Calculated Kilograms): 88.232583 Constitutional: AAO x 3, well-developed, well-nourished Respiratory: No accessory muscle use; other (fair, bilat air entry) Cardiovascular: regular rate-rhythm, S1 and S2, systolic murmur (soft MARCELINO at card base) Gastrointestional: No tender; soft; No guarding, No rebound; audible bowel sounds Extremities: No clubbing, No cyanosis Neurologic/Psychiatric: oriented x 3, power is 5/5 both on sides Skin: No rash on exposed areas, No ulcerations on exposed areas Results/Procedures: Labs Laboratory Tests 03/05/22 12:10: White Blood Count 12.4H, Red Blood Count 4.52, Hemoglobin 13.9, Hematocrit 42, Mean Corpuscular Volume 93, Mean Corpuscular Hemoglobin 31, Mean Corpuscular Hemoglobin Concent 33, Red Cell Distribution Width 13.4, Platelet Count 402H, Mean Platelet Volume 10.7, Immature Granulocyte % (Auto) 0, Neutrophils (%) (Auto) 63, Lymphocytes (%) (Auto) 25, Monocytes (%) (Auto) 7, Eosinophils (%) (Auto) 4, Basophils (%) (Auto) 1, Neutrophils # (Auto) 7.8, Lymphocytes # (Auto) 3.1, Monocytes # (Auto) 0.8, Eosinophils # (Auto) 0.4H, Basophils # (Auto) 0.1, Immature Granulocyte # (Auto) 0.0, Prothrombin Time 13.1, INR Comment 1.0, Activated Partial Thromboplast Time 29, Sodium Level 137, Potassium Level 4.2, Chloride Level 104, Carbon Dioxide Level 21, Anion Gap 12, Blood Urea Nitrogen 5L, Creatinine 0.67, Estimat Glomerular Filtration Rate 115, BUN/Creatinine Ratio 7, Glucose Level 88, Calcium Level 9.3, Corrected Calcium 9.1, Magnesium Level 2.2, Total Bilirubin 0.3, Aspartate Amino Transf (AST/SGOT) 14, Alanine Aminotransferase (ALT/SGPT) 16, Alkaline Phosphatase 59, Myoglobin 25.9, Troponin I < 0.028, Total Protein 7.1, Albumin 4.2 03/06/22 04:25: White Blood Count 10.1, Red Blood Count 4.10, Hemoglobin 12.4, Hematocrit 38, Mean Corpuscular Volume 93, Mean Corpuscular Hemoglobin 30, Mean Corpuscular Hemoglobin Concent 33, Red Cell Distribution Width 13.4, Platelet Count 321, Mean Platelet Volume 10.8, Immature Granulocyte % (Auto) 0, Neutrophils (%) (Auto) 60, Lymphocytes (%) (Auto) 28, Monocytes (%) (Auto) 7, Eosinophils (%) (Auto) 5, Basophils (%) (Auto) 1, Neutrophils # (Auto) 6.1, Lymphocytes # (Auto) 2.8, Monocytes # (Auto) 0.7, Eosinophils # (Auto) 0.5H, Basophils # (Auto) 0.1, Immature Granulocyte # (Auto) 0.0, Sodium Level 137, Potassium Level 3.7, Chloride Level 107, Carbon Dioxide Level 16L, Anion Gap 14, Blood Urea Nitrogen 7, Creatinine 0.64, Estimat Glomerular Filtration Rate 117, BUN/Creatinine Ratio 11, Glucose Level 99, Calcium Level 8.4L, Magnesium Level 2.1 Laboratory Tests 03/05/22 12:10 03/06/22 04:25 A/P: Assessment: Chest pain - non-cardiac (based on cad cath of 03/05/22 that is noted below) CAD - Ac NSTEMI on 01/30/21 - Card cath 01/31/21: 99% prox LAD stented successfully with Gloria 2.75 x 12 stent, mildly ectatic proximal LCX, codominant RCA w/o significant disease, LVEDP 18 mmHg, LVEF 60% - Card cath 03/05/22: Mild coronary artery disease, including mild ectasia of codominant leftbcircumflex. There is a patent stent in the proximal left anterior descending that is known to be Gloria 2.75 x 12 mm stent that was placed in 2020. Left ventricular end-diastolic pressure 18 mmHg. Left v entricular ejection fraction of 60%. Echo of 01/31/20: LVEF 60-65%, PASP 25-30 mmHg Tobaccoism - cessation advised Pre-eclempsia with of 2003 Chronic ALANIZ Chronic back pain Family h/o CAD (father in his 40's) Plan: * We reviewed and discussed with her her cath findings * Continue current regimen * Advised to quit smoking immediately and completely * Add antacid * Advised w/u for noncardiac cp with her pcp * Outpt cardiac f/u advised Clinical Quality Measures AMI/AHF: ASA po Prior to arrival: Yes (Baby aspirin) RASHAWN HOLGUIN MD FACP FAC [facility]S Mar 06, 2022 09:26
[2022-03-06] MEDS ORDERED: FAMO-119 PO (09:27)
--- NOTE | 2022-03-06 09:53 | Discharge Inst-Cardiology ---
Discharge Inst-Cardiac Discharge Medications New Medications: Famotidine (Pepcid) 20 Mg Tablet 20 MG PO BID, #60 TAB 5 Refills Continued Medications: Acetaminophen (Tylenol Extra Strength) 500 Mg Tablet 1000 MG PO Q6H PRN for PAIN-MILD (1-4), TAB Albuterol Sulfate (Proventil Hfa) 6.7 Gm Hfa.aer.ad 2 PUFF INH Q6H PRN for SHORTNESS OF BREATH, EA Aspirin (Children's Aspirin) 81 Mg Tab.chew 81 MG PO DAILY, #90 TAB 3 Refills Atorvastatin Calcium (Atorvastatin Calcium) 80 Mg Tablet 80 MG PO HS, #90 TAB 3 Refills Cetirizine HCl (Zyrtec) 10 Mg Tablet 10 MG PO DAILY PRN for ALLERGY SYMPTOMS, TAB Clopidogrel Bisulfate (Clopidogrel) 75 Mg Tablet 75 MG PO DAILY, #90 TAB 3 Refills Cyclobenzaprine HCl (Cyclobenzaprine HCl) 10 Mg Tablet 10 MG PO Q8H PRN for SPASMS, #15 TAB 0 Refills Hydrocodone/Acetaminophen (Hydrocodone-Acetamin 5-325 mg) 1 Each Tablet 1 TAB PO Q6H PRN for PAIN-SEVERE (8-10) for 5 Days, #20 TAB 0 Refills Metoprolol Succinate (Metoprolol Succinate) 25 Mg Tab.er.24h 25 MG PO DAILY, #90 TAB 3 Refills Nicotine (Nicoderm Cq) 1 Each Patch.td24 21 MG TD DAILY@0900, #30 PATCH Discontinued Medications: Cyclobenzaprine HCl (Cyclobenzaprine HCl) 10 Mg Tablet 10 MG PO Q8H PRN for SPASMS, #15 TAB 0 Refills Ibuprofen (Ibuprofen) 200 Mg Tablet 600 MG PO Q8H PRN for PAIN-MILD (1-4), TAB Ibuprofen (Ibuprofen) 800 Mg Tablet 800 MG PO Q8H PRN for PAIN, #30 TAB 0 Refills New, Converted or Re-Newed RX: Transmitted to Pharmacy Patient Instructions Patient Instructions: Please schedule follow up appointment to see Dr. Jean-Baptiste in 2 weeks YEN SPIVEY Mar 06, 2022 09:53
[2022-03-06 11:10] VITALS: BP 125/91
== END 2022-03-06 11:10 | disposition home or self-care (01) ==
LOC: EDUNIT# 11:56 → ER 11:57 → CATH 16:57 → CSD 18:00 → CATH 03-06 11:10
PROVIDERS: ATTEND Internal Medicine Cardiovascular Disease
DX: I25.10 Atherosclerotic heart disease of native coronary artery without angina pectoris (principal); I21.4 Non-ST elevation (NSTEMI) myocardial infarction; R51.9 Headache, unspecified; R07.89 Other chest pain; G89.29 Other chronic pain; M54.9 Dorsalgia, unspecified; F17.210 Nicotine dependence, cigarettes, uncomplicated; Z95.5 Presence of coronary angioplasty implant and graft; Z87.59 Personal history of other complications of pregnancy, childbirth and the puerperium; Z79.82 Long term (current) use of aspirin; Z79.01 Long term (current) use of anticoagulants
CPT/HCPCS: 71045; 80053; 83735; 83874; 84484; 85025; 85610; 85730; 93041; 93458; C1894; 36415; 80048; 93005; 93306

== ENCOUNTER 2022-03-09 01:24 | Emergency (ER) | payer SELFPAY ==
[~2022-03-09] VITALS: Ht 160 cm; Wt 90.0 kg
[~2022-03-09 01:24] MED LIST changes: +FAMO-119 PO
[2022-03-09 01:37] VITALS: BP 132/82
--- NOTE | 2022-03-09 01:43 | ED Lower Extremity ---
General Chief Complaint: Lower Extremity Stated Complaint: RIGHT LEG PAIN Source: patient Exam Limitations: no limitations History of Present Illness Date Seen by Provider: March 09, 2022 Time Seen by Provider: 01:27 Initial Comments 36-year-old female with past medical history of CAD status post stenting coming in due to right groin discomfort. She had a heart cath 4 days ago and they accessed that via her right groin. She has been having persistent discomfort in that area, but she feels like it is a little bit worse today. She is unsure if she has a blood clot. Denies any prior history of blood clots anywhere. Has not had any swelling or redness as well. She is otherwise denying any other acute complaints Allergies and Home Medications Allergies Coded Allergies: No Known Drug Allergies (Verified , 02/20/19) Patient Home Medication List Home Medication List Reviewed: Yes Acetaminophen (Tylenol Extra Strength) 500 Mg Tablet, 1,000 MG PO Q6H PRN for PAIN-MILD (1-4), (Reported) Entered as Reported by: FRANK WALLACE on 01/30/21 1443 Albuterol Sulfate (Proventil Hfa) 6.7 Gm Hfa.aer.ad, 2 PUFF INH Q6H PRN for SHORTNESS OF BREATH, (Reported) Entered as Reported by: FRANK WALLACE on 01/30/21 1443 Aspirin (Children's Aspirin) 81 Mg Tab.chew, 81 MG PO DAILY Prescribed by: YEN SPIVEY on 01/31/21 1550 Atorvastatin Calcium (Atorvastatin Calcium) 80 Mg Tablet, 80 MG PO HS Prescribed by: YEN SPIVEY on 01/31/21 1550 Cetirizine HCl (Zyrtec) 10 Mg Tablet, 10 MG PO DAILY PRN for ALLERGY SYMPTOMS, (Reported) Entered as Reported by: FRANK WALLACE on 01/30/21 1443 Clopidogrel Bisulfate (Clopidogrel) 75 Mg Tablet, 75 MG PO DAILY Prescribed by: YEN SPIVEY on 01/31/21 1550 Cyclobenzaprine HCl (Cyclobenzaprine HCl) 10 Mg Tablet, 10 MG PO Q8H PRN for SPASMS Prescribed by: ANGELES CONTRERAS on 06/14/21 1709 Famotidine (Pepcid) 20 Mg Tablet, 20 MG PO BID Prescribed by: RASHAWN HOLGUIN on 03/06/22 7812 Hydrocodone/Acetaminophen (Hydrocodone-Acetamin 5-325 mg) 1 Each Tablet, 1 TAB PO Q6H PRN for PAIN-SEVERE (8-10) Prescribed by: EMILIE STOREY on 02/13/22 1303 Metoprolol Succinate (Metoprolol Succinate) 25 Mg Tab.er.24h, 25 MG PO DAILY Prescribed by: YEN SPIVEY on 01/31/21 1550 Nicotine (Nicoderm Cq) 1 Each Patch.td24, 21 MG TD DAILY@0900 Prescribed by: YOON MAHER on 02/01/21 1054 Discontinued Medications Cyclobenzaprine HCl (Cyclobenzaprine HCl) 10 Mg Tablet, 10 MG PO Q8H PRN for SPASMS Prescribed by: ANGELES CONTRERAS on 07/31/21 1605 Ibuprofen (Ibuprofen) 200 Mg Tablet, 600 MG PO Q8H PRN for PAIN-MILD (1-4), (Reported) Entered as Reported by: FRANK WALLACE on 01/30/21 1443 Ibuprofen (Ibuprofen) 800 Mg Tablet, 800 MG PO Q8H PRN for PAIN Prescribed by: ANGELES CONTRERAS on 07/31/21 1605 Review of Systems Constitutional: No chills, No fever EENTM: No blurred vision Respiratory: no symptoms reported Cardiovascular: no symptoms reported Gastrointestinal: no symptoms reported 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: no symptoms reported Musculoskeletal: other (Right mid thigh pain) Skin: no symptoms reported Psychiatric/Neurological: No Symptoms Reported All Other Systems Reviewed Negative Unless Noted: Yes Past Ctilhja-Jxfdet-Yviptv Hx Patient Social History Tobacco Use?: Yes Immunizations Up To Date Tetanus Booster (TDap): Less than 5yrs PED Vaccines UTD: Yes First/Initial COVID19 Vaccinat: MAY 2021 Second COVID19 Vaccination Ilir: JUNE 2021 Third COVID19 Vaccination Date: MAY 2021 Seasonal Allergies Seasonal Allergies: No Past Medical History Surgery/Hospitalization HX: Diverticulosis, diverticulitis, non-STEMI, coronary artery disease with one stent,headaches and migraines, anxiety and depression Surgeries: Yes Abdominal, Section, Coronary Stent, Gallbladder Respiratory: No Currently Using CPAP: No Currently Using BIPAP: No Cardiac: Yes Coronary Artery Disease Neurological: Yes Headaches /Migraines 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 Disorders: No 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: No Gastrointestinal: Yes Diverticulosis Musculoskeletal: No Endocrine: No HEENT: No Loss of Vision: Denies Hearing Impairment: Denies Cancer: No Psychosocial: Yes Anxiety, Depression Integumentary: No Blood Disorders: No Adverse Reaction/Blood Tranf: No Family Medical History Arthritis 19 MOTHER GRANDMA-MATERAL Colon cancer GRANDP-MATERANL Completed stroke 19 FATHER Congenital disease 19 FATHER Congenital heart disease 19 FATHER Diabetes mellitus 19 FATHER GRANDMA-MATERAL Hypercholesterolemia Myocardial infarction 19 FATHER GRANDP-MATERANL Heart Disease, Cancer, Diabetes Physical Exam Vital Signs Capillary Refill : Height, Weight, BMI Height: 5'5.00" Weight: 196lbs. 0.0oz. 88.050593mk; 36.27 BMI Method:Stated General Appearance: WD/WN, no apparent distress HEENT: PERRL/EOMI, normal ENT inspection, pharynx normal Neck: non-tender, full range of motion, supple, normal inspection Cardiovascular: regular rate, rhythm, no edema, no murmur Respiratory: chest non-tender, lungs clear, normal breath sounds, no respiratory distress, no accessory muscle use Gastrointestinal: normal bowel sounds, non tender, soft; No distended, No guarding, No rebound Hips: bilateral hip non-tender, bilateral hip normal inspection, bilateral hip normal range of motion, bilateral hip no evidence of injury Legs: right leg other (Bruise to the right inner thigh, catheterization site without significant swelling, no redness, no significant pain, calves are nontender to squeeze) Neurologic/Tendon: normal sensation, normal motor functions Neurologic/Psychiatric: no motor/sensory deficits, alert, normal mood/affect Skin: normal color, warm/dry Lymphatic: no adenopathy Progress/Results/Core Measures Progress Progress Note : Progress Note 36-year-old female with above history coming in due to right thigh pain. ABCs were intact and vitals were stable on presentation. Physical exam with an old bruise to the right medial thigh that is tender around that area, but no signs of infection particularly around the catheterization site. No large hematoma seen either. Normal distal pulses. I did a [id number] ultrasound and there is no large DVT with completely compressible veins including in the popliteal region. I discussed that this is not 100%. I will have her do a formal ultrasound in [place] tomorrow. We do not unfortunately have the capabilities to further risk assess with a D-dimer because our machine is broken. She has not had any trauma and I do not believe an x-ray is warranted at this time. I believe she is stable for discharge with outpatient follow-up. She was sent home with strict return precautions. Departure Impression Primary Impression: S/P cardiac cath Additional Impression: Right thigh pain Disposition: HOME, SELF-CARE Condition: Stable Departure-Patient Inst. Decision time for Depature: 01:40 Referrals: SELF,ERIC LAWRENCE (PCP/Family) Primary Care Physician Patient Instructions: Cardiac Catheterization (DC) Add. Discharge Instructions: Someone should call you tomorrow to schedule an ultrasound in [place]. If they do not call by 11 AM I would call the [phone] to try and schedule it yourself. As long as he gets down in the next couple days that is reassuring. If you start having significant swelling in your leg compared to the other side and I would present to [place] in the ER for potential expedited ultrasound. Take ibuprofen and/or Tylenol as needed for pain. Follow-up with your regular doctor as needed. Work/School Note: Work Release Form Date Seen in the Emergency Department: March 09, 2022 Return to Work: March 10, 2022 Restrictions: No Restrictions CHERIE CERVANTES MD March 09, 2022 01:43
[2022-03-09] MEDS ORDERED: IBUPROFEN 600 MG (MOTRIN) TAB PO ONE (01:45)
== END 2022-03-09 01:58 | disposition home or self-care (01) ==
LOC: EDUNIT# 01:24 → ER FS 01:26
DX: M79.651 Pain in right thigh (principal); I25.10 Atherosclerotic heart disease of native coronary artery without angina pectoris; Z95.9 Presence of cardiac and vascular implant and graft, unspecified
CPT/HCPCS: 99285

== ENCOUNTER 2022-04-04 20:28 | Emergency (ER) | payer SELFPAY ==
[2022-04-04] MEDS ORDERED: ONDANSETRON 4 MG (ZOFRAN) ORAL DISSOLVE TAB PO STA (20:48)
[2022-04-04] MEDS ORDERED: DOXYCYCLINE 100 MG (VIBRAMYCIN) TABLET PO SCH (21:00)
--- NOTE | 2022-04-04 21:14 | ED General ---
General Chief Complaint: Bite-Animal/Human/Insect Stated Complaint: L LEG SPIDER BITE Nursing Triage Note: PT ARRIVAL TO ER WITH COMPLAINT OF POSSIBLE SPIDER BITE TO UPPER LEFT PANNUS. PT STATES THAT IT WAS NOTICED YESTERDAY. PT STATES THAT SURROUNDING SKIN IS REDDENED. PT STATES THAT IT HAD WHAT APPEARED TO BE A SMALL CENTER THAT WAS DARK AND SHE TOUCHED IT AND IT OPENED AND DRAINED WHAT SHE CALLED BLOODY PUS. PT STATES THAT ITS VERY TENDER TO TOUCH. PT STATES THAT ITS CENTER IS BLACK IN COLOR AND SHE HAS IT COVERED WITH GAUZE BECAUSE IT KEEPS OOZING. Source of Information: Patient Exam Limitations: No Limitations History of Present Illness Date Seen by Provider: April 04, 2022 Time Seen by Provider: 20:00 Initial Comments Patient is a 36-year-old female presents with infected insect bite to lower pannus. Symptoms began 2 days ago. Patient states she squeezed a small boil which expressed pus and has stopped draining with surrounding cellulitis. Timing/Duration: 1-2 Days Severity: Mild Modifying Factors: improves with Other Associated Systoms: Other Allergies and Home Medications Allergies Coded Allergies: No Known Drug Allergies (Verified , 02/20/19) Patient Home Medication List Home Medication List Reviewed: Yes Acetaminophen (Tylenol Extra Strength) 500 Mg Tablet, 1,000 MG PO Q6H PRN for PAIN-MILD (1-4), (Reported) Entered as Reported by: FRANK WALLACE on 01/30/21 144 Albuterol Sulfate (Proventil Hfa) 6.7 Gm Hfa.aer.ad, 2 PUFF INH Q6H PRN for SHORTNESS OF BREATH, (Reported) Entered as Reported by: FRANK WALLACE on 01/30/21 144 Aspirin (Children's Aspirin) 81 Mg Tab.chew, 81 MG PO DAILY Prescribed by: YEN SPIVEY on 01/31/21 155 Atorvastatin Calcium (Atorvastatin Calcium) 80 Mg Tablet, 80 MG PO HS Prescribed by: YEN SPIVEY on 01/31/21 155 Cetirizine HCl (Zyrtec) 10 Mg Tablet, 10 MG PO DAILY PRN for ALLERGY SYMPTOMS, (Reported) Entered as Reported by: FRANK WALLACE on 01/30/21 144 Clopidogrel Bisulfate (Clopidogrel) 75 Mg Tablet, 75 MG PO DAILY Prescribed by: YEN SPIVEY on 01/31/21 1550 Cyclobenzaprine HCl (Cyclobenzaprine HCl) 10 Mg Tablet, 10 MG PO Q8H PRN for SPASMS Prescribed by: ANGELES CONTRERAS on 06/14/21 1709 Famotidine (Pepcid) 20 Mg Tablet, 20 MG PO BID Prescribed by: RASHAWN HOLGUIN on 03/06/22 0927 Hydrocodone/Acetaminophen (Hydrocodone-Acetamin 5-325 mg) 1 Each Tablet, 1 TAB PO Q6H PRN for PAIN-SEVERE (8-10) Prescribed by: EMILIE STOREY on 02/13/22 1303 Metoprolol Succinate (Metoprolol Succinate) 25 Mg Tab.er.24h, 25 MG PO DAILY Prescribed by: YEN SPIVEY on 01/31/21 1550 Nicotine (Nicoderm Cq) 1 Each Patch.td24, 21 MG TD DAILY@0900 Prescribed by: YOON MAHER on 02/01/21 1054 Review of Systems Review of Systems Constitutional: see HPI Skin: see HPI Past Pucmybh-Qpwlxs-Ptkgde Hx Patient Social History Tobacco Use?: Yes Tobacco type used: Cigarettes Smoking Status: Current Everyday Smoker Use of E-Cig and/or Vaping dev: No Substance use?: No Alcohol Use?: No Pt feels they are or have been: No Immunizations Up To Date Tetanus Booster (TDap): Less than 5yrs PED Vaccines UTD: Yes Influenza Vaccine Up-to-Date: No; Not Current First/Initial COVID19 Vaccinat: MAY 2021 Second COVID19 Vaccination Ilir: JUNE 2021 Third COVID19 Vaccination Date: MAY 2021 Seasonal Allergies Seasonal Allergies: No Past Medical History Surgery/Hospitalization HX: Diverticulosis, diverticulitis, non-STEMI, coronary artery disease with one stent,headaches and migraines, anxiety and depression Surgeries: Yes Abdominal, Section, Coronary Stent, Gallbladder Respiratory: No Currently Using CPAP: No Currently Using BIPAP: No Cardiac: Yes Coronary Artery Disease Neurological: Yes Headaches /Migraines 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 Disorders: No 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: No Gastrointestinal: Yes Diverticulosis Musculoskeletal: No Endocrine: No HEENT: No Loss of Vision: Denies Hearing Impairment: Denies Cancer: No Psychosocial: Yes Anxiety, Depression Integumentary: No Blood Disorders: No Adverse Reaction/Blood Tranf: No Family Medical History Arthritis 19 MOTHER GRANDMA-MATERAL Colon cancer GRANDP-MATERANL Completed stroke 19 FATHER Congenital disease 19 FATHER Congenital heart disease 19 FATHER Diabetes mellitus 19 FATHER GRANDMA-MATERAL Hypercholesterolemia Myocardial infarction 19 FATHER GRANDP-MATERANL Heart Disease, Cancer, Diabetes Physical Exam Vital Signs Vital Signs - First Documented 04/04/22 20:43 Temp 36.4 Pulse 74 Resp 16 B/P (MAP) 137/86 (103) Pulse Ox 98 O2 Delivery Room Air Capillary Refill : Less Than 3 Seconds Height, Weight, BMI Height: 5'5.00" Weight: 196lbs. 0.0oz. 88.711781vv; 35.00 BMI Method:Stated General Appearance: No Apparent Distress, Anxious Gastrointestinal: Non Tender, Soft Skin: Other (Small deroofed abscess with induration over her lower pannus, no drainage, with 4 x 20 cm patch of cellulitis) Progress/Results/Core Measures Suspected Sepsis SIRS Temperature: Pulse: 74 Respiratory Rate: 16 Blood Pressure 137 /86 Mean: 103 Results/Orders My Orders Orders - CHELSEA TURNER DO Ondansetron Oral Dissolve Tab (Zofran (04/04/22 20:48) Doxycycline Hyclate Tablet (Vibramycin T (04/04/22 21:00) Vital Signs/I&O 04/04/22 20:43 Temp 36.4 Pulse 74 Resp 16 B/P (MAP) 137/86 (103) Pulse Ox 98 O2 Delivery Room Air Capillary Refill : Less Than 3 Seconds Blood Pressure Mean: 103 Departure Communication (Admissions) Antibiotics and nausea medication given. Recommendations are for continued t herapeutic and supportive care with PCP follow-up. Return precautions reviewed. Patient verbalizes understanding agreement with discharge instructions prior to departure. Impression Primary Impression: Cellulitis, abdominal wall Disposition: HOME, SELF-CARE Condition: Stable Departure-Patient Inst. Decision time for Depature: 21:15 Referrals: SELF,ERIC LAWRENCE (PCP/Family) Primary Care Physician Patient Instructions: Cellulitis (Skin Infection), Adult (DC) Add. Discharge Instructions: You were evaluated in the emergency department for cellulitis of your lower abdo men. Please take newly prescribed medications as directed and follow-up with your PCP in 3 to 5 days for reevaluation. Return to the ED if new or worsening symptoms. All discharge instructions reviewed with patient and/or family. Voiced understanding. Scripts Ondansetron (Ondansetron Odt) 4 Mg Tab.rapdis 4 MG PO Q6H, #10 TAB Prov: CHELSEA TURNER DO 04/04/22 Doxycycline Hyclate (Doxycycline Hyclate) 100 Mg Tablet 100 MG PO BID, #20 TAB 0 Refills Prov: CHELSEA TURNER DO 04/04/22 CHELSEA TURNER DO April 04, 2022 21:14
[2022-04-04] MEDS ORDERED: ONDA4TAB11 PO (21:17)
[2022-04-04] MEDS ORDERED: DOXY100T2 PO (21:17)
[2022-04-04 21:43] VITALS: BP 137/86
== END 2022-04-04 21:33 | disposition home or self-care (01) ==
LOC: EDUNIT# 20:28 → ER FS 20:30
DX: L03.311 Cellulitis of abdominal wall (principal); F17.210 Nicotine dependence, cigarettes, uncomplicated
CPT/HCPCS: 99283

== ENCOUNTER 2022-05-17 17:49 | Emergency (ER) | payer SELFPAY ==
[~2022-05-17] VITALS: Ht 160 cm; Wt 86.4 kg
[~2022-05-17 17:49] MED LIST changes: +DOXY100T2 PO
[2022-05-17 17:53] VITALS: BP 131/77
[2022-05-17 18:12] LABS: BASOPHILS # (AUTO) 0.1 10^3/uL (0.0-0.1); BASOPHILS % (AUTO) 1 % (0-10); EOSINOPHILS # (AUTO) 0.5 10^3/uL (0.0-0.3); EOSINOPHILS % (AUTO) 4 % (0-10); HEMATOCRIT 36 % (35-52); HEMOGLOBIN 12.3 g/dL (11.5-16.0); LYMPHOCYTES % (AUTO) 28 % (12-44); MEAN CORPUSCULAR HEMOGLOBIN 31 pg (25-34); MEAN CORPUSCULAR HGB CONC 34 g/dL (32-36); MEAN CORPUSCULAR VOLUME 91 fL (80-99); MEAN PLATELET VOLUME 10.9 fL (9.0-12.2); MONOCYTES # (AUTO) 0.8 10^3/uL (0.0-1.0); MONOCYTES % (AUTO) 7 % (0-12); NEUTROPHILS # (AUTO) 6.5 10^3/uL (1.8-7.8); NEUTROPHILS % (AUTO) 60 % (42-75); PLATELET COUNT 311 10^3/uL (130-400); WHITE BLOOD COUNT 10.9 10^3/uL (4.3-11.0)
--- NOTE | 2022-05-17 18:23 | Diagnostic Imaging Report ---
INDICATION: Chest pain. COMPARISON: Prior examination from 03/05/2022. FINDINGS: The heart size, mediastinal configuration, and pulmonary vascularity are within normal limits. There is no pleural effusion, pneumothorax, or pneumonia. The osseous structures are unremarkable. IMPRESSION: No acute cardiopulmonary abnormality. Dictated by: Dictated on workstation # [id number]
[2022-05-17 18:29] LABS: ALANINE AMINOTRANSFERASE 22 U/L (0-55); ALBUMIN 4.1 GM/DL (3.2-4.5); ALKALINE PHOSPHATASE 71 U/L (40-136); BILIRUBIN,TOTAL 0.3 MG/DL (0.1-1.0); BUN/CREATININE RATIO 13; CALCIUM 9.2 MG/DL (8.5-10.1); CARBON DIOXIDE 22 MMOL/L (21-32); CHLORIDE 107 MMOL/L (98-107); CREATININE SERUM 0.64 MG/DL (0.60-1.30); GFR ESTIMATED 117; GLUCOSE 121 MG/DL (70-105); POTASSIUM 3.6 MMOL/L (3.6-5.0); SODIUM 139 MMOL/L (135-145); TOTAL PROTEIN 6.8 GM/DL (6.4-8.2)
[2022-05-17] MEDS ORDERED: HYDROcodone/APAP 5 MG/325 MG (LORTAB) TAB PO ONE (18:45)
[2022-05-17] MEDS ORDERED: NITROGLYCERIN 0.4 MG SL TABS BTL 25'S SL PRN (18:45)
--- NOTE | 2022-05-17 18:52 | ED Chest Pain ---
General Chief Complaint: Chest Pain Stated Complaint: CP,NAUSEA Nursing Triage Note: Patient reports left chest pain that started 1-2 hours ago while she was fishing with family. She states she had stents placed in 2019, states she had a clean heart cath 6 months ago. Source: patient Exam Limitations: no limitations History of Present Illness Date Seen by Provider: May 17, 2022 Time Seen by Provider: 14:50 Initial Comments Patient is a 36-year-old female with CAD with stent placement presents with sharp left-sided chest pain located over the sternum and above her pectoral muscle. Symptoms began approximately 3 hours ago while relaxing outdoors. Patient was not exerting herself at the time of symptom onset. Pain is described as mild to moderate and radiates around to left shoulder blade. She denies nausea, shortness of breath or sweats. No abdominal pain or discomfort. Symptoms feel similar to prior chest pain, which resulted in a heart cath 3 months ago. No medications prior to ED arrival. Heart cath was negative. Patient is compliant with her cardiac medications including Plavix. Timing/Duration: 1-3 hours Severity/Quality: mild Location: other Radiation: other Activities at Onset: other Prior CP/Workup: other Modifying Factors: improves with other Allergies and Home Medications Allergies Coded Allergies: No Known Drug Allergies (Verified , 02/20/19) Patient Home Medication List Home Medication List Reviewed: Yes Acetaminophen (Tylenol Extra Strength) 500 Mg Tablet, 1,000 MG PO Q6H PRN for PAIN-MILD (1-4), (Reported) Entered as Reported by: FRANK WALLACE on 01/30/21 1443 Albuterol Sulfate (Proventil Hfa) 6.7 Gm Hfa.aer.ad, 2 PUFF INH Q6H PRN for SHORTNESS OF BREATH, (Reported) Entered as Reported by: FRANK WALLACE on 01/30/21 1443 Aspirin (Children's Aspirin) 81 Mg Tab.chew, 81 MG PO DAILY Prescribed by: YEN SPIVEY on 01/31/21 1550 Atorvastatin Calcium (Atorvastatin Calcium) 80 Mg Tablet, 80 MG PO HS Prescribed by: YEN SPIVEY on 01/31/21 1550 Cetirizine HCl (Zyrtec) 10 Mg Tablet, 10 MG PO DAILY PRN for ALLERGY SYMPTOMS, (Reported) Entered as Reported by: FRANK WALLACE on 01/30/21 1443 Clopidogrel Bisulfate (Clopidogrel) 75 Mg Tablet, 75 MG PO DAILY Prescribed by: YEN SPIVEY on 01/31/21 1550 Cyclobenzaprine HCl (Cyclobenzaprine HCl) 10 Mg Tablet, 10 MG PO Q8H PRN for SPASMS Prescribed by: ANGELES CONTRERAS on 06/14/21 1709 Doxycycline Hyclate (Doxycycline Hyclate) 100 Mg Tablet, 100 MG PO BID Prescribed by: CHELSEA TURNER on 04/04/222116 Famotidine (Pepcid) 20 Mg Tablet, 20 MG PO BID Prescribed by: RASHAWN HOLGUIN on 03/06/22 09 Hydrocodone/Acetaminophen (Hydrocodone-Acetamin 5-325 mg) 1 Each Tablet, 1 TAB PO Q6H PRN for PAIN-SEVERE (8-10) Prescribed by: EMILIE STOREY on 02/13/22 1303 Metoprolol Succinate (Metoprolol Succinate) 25 Mg Tab.er.24h, 25 MG PO DAILY Prescribed by: YEN SPIVEY on 01/31/21 1550 Nicotine (Nicoderm Cq) 1 Each Patch.td24, 21 MG TD DAILY@0900 Prescribed by: YOON MAHER on 02/01/21 1054 Ondansetron (Ondansetron Odt) 4 Mg Tab.rapdis, 4 MG PO Q6H Prescribed by: CHELSEA TURNER on 04/04/222116 Review of Systems Review of Systems Constitutional: see HPI EENTM: See HPI Respiratory: See HPI Cardiovascular: See HPI Gastrointestinal: See HPI 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: See HPI Musculoskeletal: see HPI Skin: see HPI Psychiatric/Neurological: See HPI Endocrine: See HPI Hematologic/Lymphatic: See HPI Past Hwjrvbu-Azhcjs-Omksfb Hx Patient Social History Tobacco Use?: Yes Tobacco type used: Cigarettes Smoking Status: Current Everyday Smoker Substance use?: No Alcohol Use?: No Pt feels they are or have been: No Immunizations Up To Date Tetanus Booster (TDap): Less than 5yrs PED Vaccines UTD: Yes First/Initial COVID19 Vaccinat: MAY 2021 Second COVID19 Vaccination Ilir: JUNE 2021 Third COVID19 Vaccination Date: MAY 2021 Seasonal Allergies Seasonal Allergies: No Past Medical History Surgery/Hospitalization HX: CAD, stent placement Surgeries: Yes Abdominal, Section, Coronary Stent, Gallbladder Respiratory: No Currently Using CPAP: No Currently Using BIPAP: No Cardiac: Yes Coronary Artery Disease Neurological: Yes Headaches /Migraines Last Menstrual Period: May 03, 2022 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 Disorders: No 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: No Gastrointestinal: Yes Diverticulosis Musculoskeletal: No Endocrine: No HEENT: No Loss of Vision: Denies Hearing Impairment: Denies Cancer: No Psychosocial: Yes Anxiety, Depression Integumentary: No Blood Disorders: No Adverse Reaction/Blood Tranf: No Family Medical History Arthritis 19 MOTHER GRANDMA-MATERAL Colon cancer GRANDP-MATERANL Completed stroke 19 FATHER Congenital disease 19 FATHER Congenital heart disease 19 FATHER Diabetes mellitus 19 FATHER GRANDMA-MATERAL Hypercholesterolemia Myocardial infarction 19 FATHER GRANDP-MATERANL Heart Disease, Cancer, Diabetes Physical Exam Vital Signs Vital Signs - First Documented 05/17/22 17:53 Temp 36.5 Pulse 94 Resp 16 B/P (MAP) 131/77 (95) Pulse Ox 97 O2 Delivery Room Air Capillary Refill : Less Than 3 Seconds Height, Weight, BMI Height: 5'5.00" Weight: 196lbs. 0.0oz. 88.812555dr; 33.00 BMI Method:Stated General Appearance: No Apparent Distress, WD/WN HEENT: PERRL/EOMI, Pharynx Normal, Moist Mucous Membranes Neck: Full Range of Motion, Non Tender Respiratory: Chest Non Tender, Lungs Clear, Normal Breath Sounds Cardiovascular: Regular Rate, Rhythm Gastrointestinal: Non Tender, Soft Extremity: Non Tender, No Calf Tenderness Neurologic/Psychiatric: Alert, Oriented x3 Focused Exam Sepsis Stage: Ruled Out Progress/Results/Core Measures Results/Orders Lab Results Laboratory Tests Test 05/17/22 18:00 Range/Units White Blood Count 10.9 4.3-11.0 10^3/uL Red Blood Count 3.96 3.80-5.11 10^6/uL Hemoglobin 12.3 11.5-16.0 g/dL Hematocrit 36 35-52 % Mean Corpuscular Volume 91 80-99 fL Mean Corpuscular Hemoglobin 31 25-34 pg Mean Corpuscular Hemoglobin Concent 34 32-36 g/dL Red Cell Distribution Width 13.9 10.0-14.5 % Platelet Count 311 130-400 10^3/uL Mean Platelet Volume 10.9 9.0-12.2 fL Immature Granulocyte % (Auto) 0 % Neutrophils (%) (Auto) 60 42-75 % Lymphocytes (%) (Auto) 28 12-44 % Monocytes (%) (Auto) 7 0-12 % Eosinophils (%) (Auto) 4 0-10 % Basophils (%) (Auto) 1 0-10 % Neutrophils # (Auto) 6.5 1.8-7.8 10^3/uL Lymphocytes # (Auto) 3.0 1.0-4.0 10^3/uL Monocytes # (Auto) 0.8 0.0-1.0 10^3/uL Eosinophils # (Auto) 0.5 H 0.0-0.3 10^3/uL Basophils # (Auto) 0.1 0.0-0.1 10^3/uL Immature Granulocyte # (Auto) 0.0 0.0-0.1 10^3/uL Sodium Level 139 135-145 MMOL/L Potassium Level 3.6 3.6-5.0 MMOL/L Chloride Level 107 98-107 MMOL/L Carbon Dioxide Level 22 21-32 MMOL/L Anion Gap 10 5-14 MMOL/L Blood Urea Nitrogen 8 7-18 MG/DL Creatinine 0.64 0.60-1.30 MG/DL Estimat Glomerular Filtration Rate 117 BUN/Creatinine Ratio 13 Glucose Level 121 H 70-105 MG/DL Calcium Level 9.2 8.5-10.1 MG/DL Corrected Calcium 9.1 8.5-10.1 MG/DL Total Bilirubin 0.3 0.1-1.0 MG/DL Aspartate Amino Transf (AST/SGOT) 15 5-34 U/L Alanine Aminotransferase (ALT/SGPT) 22 0-55 U/L Alkaline Phosphatase 71 40-136 U/L Troponin I < 0.30 <0.30 NG/ML Total Protein 6.8 6.4-8.2 GM/DL Albumin 4.1 3.2-4.5 GM/DL My Orders Orders - CHELSEA TURNER DO Cbc With Automated Diff (05/17/22 18:08) Comprehensive Metabolic Panel (05/17/22 18:08) Troponin I Fs (05/17/22 18:08) Ekg Tracing (05/17/22 18:08) Chest 1 View Ap/Pa Only (05/17/22 18:08) Urine Bedside (05/17/22 18:08) Nitroglycerin 0.4 Mg Btl 25's (Nitrostat (05/17/22 18:45) Hydrocodone/Apap 5/325 Tablet (Lortab 5 (05/17/22 18:45) Ketorolac Injection (Toradol Injection) (05/17/22 19:00) Troponin I Fs (05/17/22 18:48) Ondansetron Oral Dissolve Tab (Zofran (05/17/22 18:59) Troponin I Fs (05/17/22 20:00) Acetaminophen Tablet/Caplet (Tylenol T (05/17/22 20:00) Medications Given in ED Current Medications Medications Dose Ordered Sig/Marnie Route Start Time Stop Time Status Last Admin Dose Admin Acetaminophen 650 mg ONCE ONCE PO 05/17/22 20:00 05/17/22 20:03 DC 05/17/22 20:18 650 MG Acetaminophen/ Hydrocodone Bitart 1 ea ONCE ONCE PO 05/17/22 18:45 05/17/22 18:46 DC 05/17/22 18:38 1 EA Ketorolac Tromethamine 30 mg ONCE ONCE IVP 05/17/22 19:00 05/17/22 19:01 DC 05/17/22 18:57 30 MG Nitroglycerin 1 TAB Q 5 MIN X 3 NEEDED PRN SL 05/17/22 18:45 05/17/22 18:38 0.4 MG Vital Signs/I&O 05/17/22 17:53 Temp 36.5 Pulse 94 Resp 16 B/P (MAP) 131/77 (95) Pulse Ox 97 O2 Delivery Room Air Blood Pressure Mean: 95 Departure Communication (Admissions) Chest x-ray: No acute cardiopulmonary disease per radiology report EKG: Normal sinus rhythm, no acute ST-T wave changes, normal ID, QRS, QTc intervals. Patient atypical chest pain while at rest, no relief nitroglycerin x3 in the emergency department. Patient did develop a headache with nausea. Hydrocodone and Toradol given with resolution of chest wall pain. Patient given Zofran and Tylenol for residual headache. She remains comfortable chest pain-free. 3-hour repeat troponin obtained. Given the atypical nature of the patient's symptoms and resolution and recent negative heart cath, I will be comfortable discharging the patient home if repeat troponin is negative. Patient is comfortable with treatment plan and agrees to follow-up with PCP and senior loan processor Impression Primary Impression: Chest pain Disposition: 01 HOME, SELF-CARE Condition: Stable Departure-Patient Inst. Decision time for Depature: 20:37 Referrals: SELFERIC MD (PCP/Family) Primary Care Physician Patient Instructions: Chest Pain, Adult ED Add. Discharge Instructions: You were evaluated in the emergency department for chest pain. EKG, chest x- ray, labs with repeat troponin were obtained and are nondiagnostic. The exact cause of your chest pain has not been determined. Please continue home cardiac medications and avoid strenuous physical activity and excessive heat exposure. Follow-up with your PCP and senior loan processor later this week for reevaluation. In the meantime if you develop new or worsening symptoms, return to the emergency department immediately. All discharge instructions reviewed with patient and/or family. Voiced understanding. CHELSEA TURNER DO May 17, 2022 18:52
[2022-05-17] MEDS ORDERED: ONDANSETRON 4 MG (ZOFRAN) ORAL DISSOLVE TAB PO STA (18:59)
[2022-05-17] MEDS ORDERED: KETOROLAC 30 MG/ML VIAL IVP ONE (19:00)
[2022-05-17] MEDS ORDERED: ACETAMINOPHEN 325 MG TABLET PO ONE (20:00)
== END 2022-05-17 21:00 | disposition home or self-care (01) ==
LOC: EDUNIT# 17:49 → ER FS 17:51
DX: R07.89 Other chest pain (principal); R51.9 Headache, unspecified; R11.0 Nausea; I25.10 Atherosclerotic heart disease of native coronary artery without angina pectoris; F17.210 Nicotine dependence, cigarettes, uncomplicated; Z95.5 Presence of coronary angioplasty implant and graft; Z79.02 Long term (current) use of antithrombotics/antiplatelets
CPT/HCPCS: 36415; 71045; 80053; 84484; 85025; 93005

== ENCOUNTER 2022-07-08 18:24 | Emergency (ER) | payer BC, OTHER ==
--- NOTE | 2022-07-08 19:38 | ED EENT ---
History of Present Illness General Chief Complaint: Eye Problems Stated Complaint: L EYE IRRATION/FOREIGN BODY Nursing Triage Note: Pt reports she got a metal shaving in her left eye approx 2 hours ago while working. Reports flushing it with no relief in pain or irritation. Source: patient Exam Limitations: no limitations History of Present Illness Date Seen by Provider: Jul 08, 2022 Time Seen by Provider: 18:30 Initial Comments Patient is 36-year-old female presents with foreign body sensation with minor eye irritation her right eye. Patient was working with metal earlier this evening. She denies corneal pain, or change in vision. Patient wears corrective glasses. No other symptoms or complaint Timing/Duration: gradual Severity: mild Location: eye (R) Prearrival Treatment: other Modifying Factors: Improves With Other Associated Symptoms: other Allergies and Home Medications Allergies Coded Allergies: No Known Drug Allergies (Verified , 02/20/19) Patient Home Medication List Home Medication List Reviewed: Yes Acetaminophen (Tylenol Extra Strength) 500 Mg Tablet, 1,000 MG PO Q6H PRN for PAIN-MILD (1-4), (Reported) Entered as Reported by: FRANK WALLACE on 01/30/21 144 Albuterol Sulfate (Proventil Hfa) 6.7 Gm Hfa.aer.ad, 2 PUFF INH Q6H PRN for SHORTNESS OF BREATH, (Reported) Entered as Reported by: FRANK WALLACE on 01/30/21 144 Aspirin (Children's Aspirin) 81 Mg Tab.chew, 81 MG PO DAILY Prescribed by: YEN SPIVEY on 01/31/21 155 Atorvastatin Calcium (Atorvastatin Calcium) 80 Mg Tablet, 80 MG PO HS Prescribed by: YEN SPIVEY on 01/31/21 155 Cetirizine HCl (Zyrtec) 10 Mg Tablet, 10 MG PO DAILY PRN for ALLERGY SYMPTOMS, (Reported) Entered as Reported by: FRANK WALLACE on 01/30/21 144 Clopidogrel Bisulfate (Clopidogrel) 75 Mg Tablet, 75 MG PO DAILY Prescribed by: YEN SPIVEY on 01/31/21 155 Cyclobenzaprine HCl (Cyclobenzaprine HCl) 10 Mg Tablet, 10 MG PO Q8H PRN for SPASMS Prescribed by: ANGELES CONTRERAS on 06/14/21 1229 Doxycycline Hyclate (Doxycycline Hyclate) 100 Mg Tablet, 100 MG PO BID Prescribed by: CHELSEA TURNER on 04/04/222116 Famotidine (Pepcid) 20 Mg Tablet, 20 MG PO BID Prescribed by: RASHAWN HOLGUIN on 03/06/22 09 Hydrocodone/Acetaminophen (Hydrocodone-Acetamin 5-325 mg) 1 Each Tablet, 1 TAB PO Q6H PRN for PAIN-SEVERE (8-10) Prescribed by: EMILIE STOREY on 02/13/22 1303 Metoprolol Succinate (Metoprolol Succinate) 25 Mg Tab.er.24h, 25 MG PO DAILY Prescribed by: YEN SPIVEY on 01/31/21 1550 Nicotine (Nicoderm Cq) 1 Each Patch.td24, 21 MG TD DAILY@0900 Prescribed by: YOON MAHER on 02/01/21 1054 Ondansetron (Ondansetron Odt) 4 Mg Tab.rapdis, 4 MG PO Q6H Prescribed by: CHELSEA TURNER on 04/04/222116 Review of Systems Review of Systems Constitutional: see HPI Eyes: See HPI Past Gpnijrt-Mwvrsf-Vqdqls Hx Patient Social History Tobacco Use?: Yes Tobacco type used: Cigars Smoking Status: Current Everyday Smoker Use of E-Cig and/or Vaping dev: No Substance use?: No Alcohol Use?: No Pt feels they are or have been: No Immunizations Up To Date Tetanus Booster (TDap): Less than 5yrs PED Vaccines UTD: Yes First/Initial COVID19 Vaccinat: MAY 2021 Second COVID19 Vaccination Ilir: JUNE 2021 Third COVID19 Vaccination Date: MAY 2021 Seasonal Allergies Seasonal Allergies: No Past Medical History Surgery/Hospitalization HX: CAD, stent placement Surgeries: Yes Abdominal, Section, Coronary Stent, Gallbladder Respiratory: No Currently Using CPAP: No Currently Using BIPAP: No Cardiac: Yes Coronary Artery Disease Neurological: Yes Headaches /Migraines 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 Disorders: No 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: No Gastrointestinal: Yes Diverticulosis Musculoskeletal: No Endocrine: No HEENT: No Loss of Vision: Denies Hearing Impairment: Denies Cancer: No Psychosocial: Yes Anxiety, Depression Integumentary: No Blood Disorders: No Adverse Reaction/Blood Tranf: No Family Medical History Arthritis 19 MOTHER GRANDMA-MATERAL Colon cancer GRANDP-MATERANL Completed stroke 19 FATHER Congenital disease 19 FATHER Congenital heart disease 19 FATHER Diabetes mellitus 19 FATHER GRANDMA-MATERAL Hypercholesterolemia Myocardial infarction 19 FATHER GRANDP-MATERANL Heart Disease, Cancer, Diabetes Physical Exam Vital Signs Vital Signs - First Documented 07/08/22 18:36 Temp 36.6 Pulse 86 Resp 20 B/P (MAP) 127/89 (102) Pulse Ox 96 Height, Weight, BMI Height: 5'5.00" Weight: 196lbs. 0.0oz. 88.866367gk; 33.00 BMI Method:Stated General Appearance: WD/WN, no apparent distress Eyes: right eye foreign body (No foreign body), right eye stye (External stye forming adjacent to punctum of eyelid); bilateral eye normal inspection, bilateral eye PERRL Ears: bilateral ear auricle normal, bilateral ear canal normal Nose: normal inspection Neck: supple Cardiovascular: regular rate, rhythm Progress/Results/Core Measures Results/Orders Vital Signs/I&O 07/08/22 18:36 Temp 36.6 Pulse 86 Resp 20 B/P (MAP) 127/89 (102) Pulse Ox 96 Blood Pressure Mean: 102 Departure Communication (Admissions) Right I inspected, no foreign body or abrasion identified. There is early stye formation where patient is experiencing irritation. Recommendations are supportive care with PCP/ophthalmology follow-up as needed. Impression Primary Impression: Stye external Disposition: 01 HOME, SELF-CARE Condition: Stable Departure-Patient Inst. Decision time for Depature: 19:37 Referrals: SELFERIC MD (PCP/Family) Primary Care Physician Patient Instructions: Stye (DC) Add. Discharge Instructions: Please apply warm compresses, use Visine eyedrops and take ibuprofen as needed for pain. Follow-up with your PCP and/or local eye doctor as needed. All discharge instructions reviewed with patient and/or family. Voiced understanding. CHELSEA TURNER DO Jul 08, 2022 19:38
[2022-07-08 19:40] VITALS: BP 127/89
== END 2022-07-08 19:40 | disposition home or self-care (01) ==
LOC: EDUNIT# 18:24 → ER FS 18:25
DX: H00.013 Hordeolum externum right eye, unspecified eyelid (principal); F17.290 Nicotine dependence, other tobacco product, uncomplicated; Z28.310 Unvaccinated for COVID-19
CPT/HCPCS: 99282

== ENCOUNTER 2022-07-17 12:27 | Emergency (ER) | payer BC ==
[~2022-07-17] VITALS: Ht 160 cm; Wt 88.3 kg
[2022-07-17 12:33] VITALS: BP 141/82
[2022-07-17] MEDS ORDERED: PROCHLORPERAZINE 10 MG/2ML INJ (COMPAZINE) IV ONE (12:45)
[2022-07-17] MEDS ORDERED: diphenhydrAMINE 50 MG/ML INJ (BENADRYL) IM ONE (12:45)
[2022-07-17] MEDS ORDERED: KETOROLAC 30 MG/ML VIAL IVP ONE (12:45)
--- NOTE | 2022-07-17 13:07 | ED Headache ---
General Chief Complaint: Head/Cervical Problems Stated Complaint: HEADACHE Nursing Triage Note: Patient presents to the ED with c/o migraine for 2 days. States she took 2 imitrex this morning and an additional imitrex an hour later. No relief and reports development of nausea and vomiting. Source: patient Exam Limitations: no limitations History of Present Illness Date Seen by Provider: Jul 17, 2022 Time Seen by Provider: 12:45 Initial Comments 36-year-old female with history of migraines presents for migraine headache since last night. She has taken Imitrex x2 with no relief. Is diffuse dull throbbing with sensitivity to light and sound. She has nausea and vomiting. It is exactly the same in character as her previous migraine headaches. Allergies and Home Medications Allergies Coded Allergies: No Known Drug Allergies (Verified , 02/20/19) Patient Home Medication List Home Medication List Reviewed: Yes Acetaminophen (Tylenol Extra Strength) 500 Mg Tablet, 1,000 MG PO Q6H PRN for PAIN-MILD (1-4), (Reported) Entered as Reported by: FRANK WALLACE on 01/30/21 1443 Albuterol Sulfate (Proventil Hfa) 6.7 Gm Hfa.aer.ad, 2 PUFF INH Q6H PRN for SHORTNESS OF BREATH, (Reported) Entered as Reported by: FRANK WALLACE on 01/30/21 144 Aspirin (Children's Aspirin) 81 Mg Tab.chew, 81 MG PO DAILY Prescribed by: YEN SPIVEY on 01/31/21 1550 Atorvastatin Calcium (Atorvastatin Calcium) 80 Mg Tablet, 80 MG PO HS Prescribed by: YEN SPIVEY on 01/31/21 155 Cetirizine HCl (Zyrtec) 10 Mg Tablet, 10 MG PO DAILY PRN for ALLERGY SYMPTOMS, (Reported) Entered as Reported by: FRANK WALLACE on 01/30/21 144 Clopidogrel Bisulfate (Clopidogrel) 75 Mg Tablet, 75 MG PO DAILY Prescribed by: YEN SPIVEY on 01/31/21 155 Cyclobenzaprine HCl (Cyclobenzaprine HCl) 10 Mg Tablet, 10 MG PO Q8H PRN for SPASMS Prescribed by: ANGELES CONTRERAS on 06/14/21 1709 Doxycycline Hyclate (Doxycycline Hyclate) 100 Mg Tablet, 100 MG PO BID Prescribed by: CHELSEA TURNER on 04/04/222116 Famotidine (Pepcid) 20 Mg Tablet, 20 MG PO BID Prescribed by: RASHAWN HOLGUIN on 03/06/22 09 Hydrocodone/Acetaminophen (Hydrocodone-Acetamin 5-325 mg) 1 Each Tablet, 1 TAB PO Q6H PRN for PAIN-SEVERE (8-10) Prescribed by: EMILIE STORYE on 02/13/22 1303 Metoprolol Succinate (Metoprolol Succinate) 25 Mg Tab.er.24h, 25 MG PO DAILY Prescribed by: YEN SPIVEY on 01/31/21 1550 Nicotine (Nicoderm Cq) 1 Each Patch.td24, 21 MG TD DAILY@0900 Prescribed by: YOON MAHER on 02/01/21 1054 Ondansetron (Ondansetron Odt) 4 Mg Tab.rapdis, 4 MG PO Q6H Prescribed by: CHELSEA TURNER on 04/04/222116 Review of Systems Review of Systems Constitutional: no symptoms reported Eyes: No Symptoms Reported Ears, Nose, Mouth, Throat: no symptoms reported Respiratory: no symptoms reported Cardiovascular: no symptoms reported Gastrointestinal: nausea, vomiting 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: no symptoms reported Musculoskeletal: no symptoms reported Skin: no symptoms reported Psychiatric/Neurological: Headache Past Pmgqmsn-Putvrq-Zkxayi Hx Patient Social History Tobacco Use?: Yes Tobacco type used: Cigarettes Smoking Status: Current Everyday Smoker Use of E-Cig and/or Vaping dev: No Substance use?: No Alcohol Use?: No Pt feels they are or have been: No Immunizations Up To Date Tetanus Booster (TDap): Less than 5yrs PED Vaccines UTD: Yes First/Initial COVID19 Vaccinat: MAY 2021 Second COVID19 Vaccination Ilir: JUNE 2021 Third COVID19 Vaccination Date: MAY 2021 Seasonal Allergies Seasonal Allergies: No Past Medical History Surgery/Hospitalization HX: CAD, stent placement Surgeries: Yes Abdominal, Section, Coronary Stent, Gallbladder Respiratory: No Currently Using CPAP: No Currently Using BIPAP: No Cardiac: Yes Coronary Artery Disease Neurological: Yes Headaches /Migraines 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 Disorders: No 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: No Gastrointestinal: Yes Diverticulosis Musculoskeletal: No Endocrine: No HEENT: No Loss of Vision: Denies Hearing Impairment: Denies Cancer: No Psychosocial: Yes Anxiety, Depression Integumentary: No Blood Disorders: No Adverse Reaction/Blood Tranf: No Family Medical History Arthritis 19 MOTHER GRANDMA-MATERAL Colon cancer GRANDP-MATERANL Completed stroke 19 FATHER Congenital disease 19 FATHER Congenital heart disease 19 FATHER Diabetes mellitus 19 FATHER GRANDMA-MATERAL Hypercholesterolemia Myocardial infarction 19 FATHER GRANDP-MATERANL Heart Disease, Cancer, Diabetes Physical Exam Vital Signs Vital Signs - First Documented 07/17/22 12:33 Temp 36.2 Pulse 82 Resp 16 B/P (MAP) 141/82 (101) Pulse Ox 97 O2 Delivery Room Air Capillary Refill : Less Than 3 Seconds Height, Weight, BMI Height: 5'5.00" Weight: 196lbs. 0.0oz. 88.181448ht; 34.00 BMI Method:Stated General Appearance: WD/WN, no apparent distress HEENT: PERRL/EOMI, normal ENT inspection, TMs normal, pharynx normal Neck: non-tender, full range of motion, supple, normal inspection Cardiovascular: regular rate, rhythm, no edema, no gallop, no JVD, no murmur Respiratory: chest non-tender, lungs clear, normal breath sounds, no respiratory distress, no accessory muscle use Gastrointestinal: normal bowel sounds, non tender, soft, no organomegaly, no pulsatile mass Back: normal inspection, no CVA tenderness, no vertebral tenderness Extremities: normal range of motion, non-tender, normal inspection, no pedal edema, no calf tenderness, normal capillary refill Crainal Nerves: normal speech, PERRL Motor/Sensory: no motor deficit, no sensory deficit Skin: normal color, warm/dry Lymphatic: no adenopathy Progress/Results/Core Measures Results/Orders My Orders Orders - CARLOZ COLBY DO Prochlorperazine Injection (Compazine In (07/17/22 12:45) Diphenhydramine Injection (Benadryl Inje (07/17/22 12:45) Ketorolac Injection (Toradol Injection) (07/17/22 12:45) Medications Given in ED Current Medications Medications Dose Ordered Sig/Marnie Route Start Time Stop Time Status Last Admin Dose Admin Diphenhydramine HCl 50 mg ONCE ONCE IM 07/17/22 12:45 07/17/22 12:46 DC 07/17/22 13:09 50 MG Ketorolac Tromethamine 30 mg ONCE ONCE IVP 07/17/22 12:45 9/9/22 12:46 DC 07/17/22 13:09 30 MG Prochlorperazine Edisylate 10 mg ONCE ONCE IV 07/17/22 12:45 07/17/22 12:46 DC 07/17/22 13:09 10 MG Vital Signs/I&O 07/17/22 12:33 Temp 36.2 Pulse 82 Resp 16 B/P (MAP) 141/82 (101) Pulse Ox 97 O2 Delivery Room Air Blood Pressure Mean: 101 Departure Communication (Admissions) Patient is hemodynamically stable with no red flag symptoms. She herself describes it is the exact same as her previous migraine headaches. She is feeling better with the provided medications. She is discharged in stable condition. Impression Primary Impression: Migraine headache Qualified Codes: G43.009 - Migraine without aura, not intractable, without status migrainosus Disposition: HOME, SELF-CARE Condition: Stable Departure-Patient Inst. Referrals: SELF,ERIC LAWRENCE (PCP) Primary Care Physician Patient Instructions: Migraines (DC) Add. Discharge Instructions: Continue your home medications as previously prescribed. Return to the emergency department for any severe concerns. All discharge instructions reviewed with patient and/or family. Voiced understanding. CARLOZ COLBY DO Jul 17, 2022 13:07
== END 2022-07-17 13:18 | disposition home or self-care (01) ==
LOC: EDUNIT# 12:27 → ER FS 12:29
DX: G43.909 Migraine, unspecified, not intractable, without status migrainosus (principal); F17.210 Nicotine dependence, cigarettes, uncomplicated

== ENCOUNTER 2023-03-12 10:02 | Emergency (ER) | payer BC ==
[~2023-03-12] VITALS: Ht 160 cm; Wt 88.7 kg
[~2023-03-12 10:02] MED LIST changes: +ALBU6.7H13 INH; -ALBU6.7H8 INH
[2023-03-12] MEDS ORDERED: morphine INJ 10 MG/ML 1ML (SYR OR VIAL) IVP STA (10:13)
[2023-03-12] MEDS ORDERED: ONDANSETRON 4 MG/2 ML (SDV) Z0FRAN IVP ONE (10:15)
--- NOTE | 2023-03-12 10:17 | ED Abdominal Pain ---
General Chief Complaint: Abdominal/GI Problems Stated Complaint: EPIGASTRIC PAIN; N/V Source of Information: Patient, RN/MD Exam Limitations: No Limitations History of Present Illness Date Seen by Provider: March 12, 2023 Time Seen by Provider: 10:05 Initial Comments 37-year-old female with no pertinent past medical history coming in due to right-sided abdominal pain. Started last night after dinner, severe, sharp, constant. Had an episode of nonbloody nonbilious vomiting yesterday and still feels nauseous today. Has not eaten anything today. Had a normal bowel movement this morning that was nonbloody. Went to urgent care, reportedly had a normal urinalysis and negative test and was referred here. She states she is never had pain like this before. She no longer has her gallbladder. She took ibuprofen early this morning which helped very little with the pain. Otherwise denying any fever, diarrhea, dysuria, vaginal bleeding, vaginal discharge, or any other concerns. LMP was 3 weeks ago Allergies and Home Medications Allergies Coded Allergies: No Known Drug Allergies (Verified , 02/20/19) Patient Home Medication List Home Medication List Reviewed: Yes Acetaminophen (Tylenol Extra Strength) 500 Mg Tablet, 1,000 MG PO Q6H PRN for PAIN-MILD (1-4), (Reported) Entered as Reported by: FRANK WALLACE on 01/30/21 144 Albuterol Sulfate (Proventil Hfa) 6.7 Gm Hfa.aer.ad, 2 PUFF INH Q6H PRN for SHORTNESS OF BREATH, (Reported) Entered as Reported by: FRANK WALLACE on 01/30/21 144 Aspirin (Children's Aspirin) 81 Mg Tab.chew, 81 MG PO DAILY Prescribed by: YEN SPIVEY on 01/31/21 155 Atorvastatin Calcium (Atorvastatin Calcium) 80 Mg Tablet, 80 MG PO HS Prescribed by: YEN SPIVEY on 01/31/21 155 Cetirizine HCl (Zyrtec) 10 Mg Tablet, 10 MG PO DAILY PRN for ALLERGY SYMPTOMS, (Reported) Entered as Reported by: FRANK WALLACE on 01/30/21 144 Clopidogrel Bisulfate (Clopidogrel) 75 Mg Tablet, 75 MG PO DAILY Prescribed by: YEN SPIVEY on 01/31/21 155 Cyclobenzaprine HCl (Cyclobenzaprine HCl) 10 Mg Tablet, 10 MG PO Q8H PRN for SPASMS Prescribed by: ANGELES CONTRERAS on 06/14/21 1709 Doxycycline Hyclate (Doxycycline Hyclate) 100 Mg Tablet, 100 MG PO BID Prescribed by: CHELSEA TURNER on 04/04/222116 Famotidine (Pepcid) 20 Mg Tablet, 20 MG PO BID Prescribed by: RASHAWN HOLGUIN on 03/06/22 0927 Hydrocodone/Acetaminophen (Hydrocodone-Acetamin 5-325 mg) 1 Each Tablet, 1 TAB PO Q6H PRN for PAIN-SEVERE (8-10) Prescribed by: EMILIE STOREY on 02/13/22 1303 Hydrocodone/Acetaminophen (Hydrocodone-Acetamin 5-325 mg) 5 Mg-325 Mg Tablet, 1 TAB PO Q6H PRN for PAIN-MODERATE (5-7) Prescribed by: CHERIE CERVANTES on 03/12/23 1140 Metoprolol Succinate (Metoprolol Succinate) 25 Mg Tab.er.24h, 25 MG PO DAILY Prescribed by: YEN SPIVEY on 01/31/21 1550 Nicotine (Nicoderm Cq) 1 Each Patch.td24, 21 MG TD DAILY@0900 Prescribed by: YOON MAHER on 02/01/21 1054 Ondansetron (Ondansetron Odt) 4 Mg Tab.rapdis, 4 MG PO Q6H Prescribed by: CHELSEA TURNER on 04/04/222116 Review of Systems Review of Systems Constitutional: No fever EENTM: No Symptoms Reported Respiratory: No Symptoms Reported Cardiovascular: No Symptoms Reported Gastrointestinal: See HPI 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: No Symptoms Reported Musculoskeletal: no symptoms reported Skin: no symptoms reported Psychiatric/Neurological: No Symptoms Reported Endocrine: No Symptoms Reported Hematologic/Lymphatic: No Symptoms Reported Past Tqhnuia-Vgffja-Booxqb Hx Patient Social History Tobacco Use?: Yes Tobacco type used: Cigarettes Immunizations Up To Date Tetanus Booster (TDap): Less than 5yrs PED Vaccines UTD: Yes First/Initial COVID19 Vaccinat: MAY 2021 Second COVID19 Vaccination Ilir: JUNE 2021 Third COVID19 Vaccination Date: MAY 2021 Seasonal Allergies Seasonal Allergies: No Past Medical History Surgery/Hospitalization HX: CAD, stent placement, cholecystectomy Surgeries: Yes Abdominal, Section, Coronary Stent, Gallbladder Respiratory: No Currently Using CPAP: No Currently Using BIPAP: No Cardiac: Yes Coronary Artery Disease Neurological: Yes Headaches /Migraines 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 Disorders: No 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: No Gastrointestinal: Yes Diverticulosis Musculoskeletal: No Endocrine: No HEENT: No Loss of Vision: Denies Hearing Impairment: Denies Cancer: No Psychosocial: Yes Anxiety, Depression Integumentary: No Blood Disorders: No Adverse Reaction/Blood Tranf: No Family Medical History Arthritis 19 MOTHER GRANDMA-MATERAL Colon cancer GRANDP-MATERANL Completed stroke 19 FATHER Congenital disease 19 FATHER Congenital heart disease 19 FATHER Diabetes mellitus 19 FATHER GRANDMA-MATERAL Hypercholesterolemia Myocardial infarction 19 FATHER GRANDP-MATERANL Heart Disease, Cancer, Diabetes Physical Exam Vital Signs Vital Signs - First Documented 03/12/23 10:08 Temp 36.3 Pulse 90 Resp 12 B/P (MAP) 158/82 (107) Pulse Ox 100 O2 Delivery Room Air Capillary Refill : Height/Weight/BMI Height: 5'5.00" Weight: 196lbs. 0.0oz. 88.372835sv; 34.00 BMI Method:Stated General Appearance: WD/WN, no apparent distress HEENT: PERRL/EOMI, pharynx normal Neck: non-tender, full range of motion, supple, normal inspection Respiratory: chest non-tender, lungs clear, normal breath sounds, no respiratory distress, no accessory muscle use Cardiovascular: regular rate, rhythm, no edema, no murmur Gastrointestinal: normal bowel sounds, soft; No distended, No guarding, No rebound; tenderness (right mid abdomen) Extremities: normal range of motion, non-tender, normal inspection, no pedal edema, no calf tenderness, normal capillary refill Back: normal inspection, no CVA tenderness Neurologic/Psychiatric: no motor/sensory deficits, alert, normal mood/affect Skin: normal color, warm/dry Progress/Results/Core Measures Results/Orders Lab Results Laboratory Tests Test 03/12/23 10:08 03/12/23 10:20 Range/Units Urine Color YELLOW Urine Clarity CLEAR Urine pH 6.0 5-9 Urine Specific Oral 1.010 L 1.016-1.022 Urine Protein NEGATIVE NEGATIVE Urine Glucose (UA) NEGATIVE NEGATIVE Urine Ketones NEGATIVE NEGATIVE Urine Nitrite NEGATIVE NEGATIVE Urine Bilirubin NEGATIVE NEGATIVE Urine Urobilinogen 0.2 < = 1.0 MG/DL Urine Leukocyte Esterase NEGATIVE NEGATIVE Urine RBC (Auto) NEGATIVE NEGATIVE Urine RBC NONE /HPF Urine WBC 0-2 /HPF Urine Squamous Epithelial Cells 0-2 /HPF Urine Crystals NONE /LPF Urine Bacteria NEGATIVE /HPF Urine Casts NONE /LPF Urine Mucus NEGATIVE /LPF Urine Culture Indicated NO White Blood Count 12.0 H 4.3-11.0 10^3/uL Red Blood Count 4.33 3.80-5.11 10^6/uL Hemoglobin 13.4 11.5-16.0 g/dL Hematocrit 40 35-52 % Mean Corpuscular Volume 92 80-99 fL Mean Corpuscular Hemoglobin 31 25-34 pg Mean Corpuscular Hemoglobin Concent 34 32-36 g/dL Red Cell Distribution Width 13.3 10.0-14.5 % Platelet Count 295 130-400 10^3/uL Mean Platelet Volume 10.5 9.0-12.2 fL Immature Granulocyte % (Auto) 0 % Neutrophils (%) (Auto) 58 42-75 % Lymphocytes (%) (Auto) 30 12-44 % Monocytes (%) (Auto) 6 0-12 % Eosinophils (%) (Auto) 5 0-10 % Basophils (%) (Auto) 1 0-10 % Neutrophils # (Auto) 6.9 1.8-7.8 10^3/uL Lymphocytes # (Auto) 3.6 1.0-4.0 10^3/uL Monocytes # (Auto) 0.7 0.0-1.0 10^3/uL Eosinophils # (Auto) 0.6 H 0.0-0.3 10^3/uL Basophils # (Auto) 0.1 0.0-0.1 10^3/uL Immature Granulocyte # (Auto) 0.0 0.0-0.1 10^3/uL Sodium Level 136 135-145 MMOL/L Potassium Level 4.2 3.6-5.0 MMOL/L Chloride Level 104 98-107 MMOL/L Carbon Dioxide Level 24 21-32 MMOL/L Anion Gap 8 5-14 MMOL/L Blood Urea Nitrogen 12 7-18 MG/DL Creatinine 0.63 0.60-1.30 MG/DL Estimat Glomerular Filtration Rate 116 BUN/Creatinine Ratio 19 Glucose Level 76 70-105 MG/DL Calcium Level 9.6 8.5-10.1 MG/DL Corrected Calcium 9.5 8.5-10.1 MG/DL Total Bilirubin 0.2 0.1-1.0 MG/DL Aspartate Amino Transf (AST/SGOT) 15 5-34 U/L Alanine Aminotransferase (ALT/SGPT) 15 0-55 U/L Alkaline Phosphatase 66 40-136 U/L C-Reactive Protein < 0.30 <0.50 MG/DL Total Protein 6.9 6.4-8.2 GM/DL Albumin 4.1 3.2-4.5 GM/DL Lipase 20 8-78 U/L My Orders Orders - CHERIE CERVANTES MD Comprehensive Metabolic Panel (03/12/23 10:13) Lipase (03/12/23 10:13) Ua Culture If Indicated (03/12/23 10:13) Ed Iv/Invasive Line Start (03/12/23 10:13) Cbc With Automated Diff (03/12/23 10:13) Ct Abdomen/Pelvis W (03/12/23 10:13) Crp Fs (03/12/23 10:13) Urine Bedside (03/12/23 10:13) Morphine Injection (Morphine Injection (03/12/23 10:13) Ondansetron Injection (Zofran Injectio (03/12/23 10:15) Iohexol Injection (Omnipaque 350 Mg/Ml 1 (03/12/23 11:00) Received Contrast (Hold Metformin- Contr (03/12/23 11:00) Ns (Ivpb) (Sodium Chloride 0.9% Ivpb Bag (03/12/23 11:00) Medications Given in ED Current Medications Medications Dose Ordered Sig/Marnie Route Start Time Stop Time Status Last Admin Dose Admin Iohexol 100 ml ONCE ONCE IV 03/12/23 11:00 03/12/23 11:01 DC 03/12/23 10:59 80 ML Ondansetron HCl 4 mg ONCE ONCE IVP 03/12/23 10:15 03/12/23 10:16 DC 03/12/23 10:23 4 MG Sodium Chloride 100 ml ONCE ONCE IV 03/12/23 11:00 03/12/23 11:01 DC 03/12/23 10:59 100 ML Vital Signs/I&O 03/12/23 10:08 Temp 36.3 Pulse 90 Resp 12 B/P (MAP) 158/82 (107) Pulse Ox 100 O2 Delivery Room Air Progress Progress Note : Progress Note 37-year-old female with above history coming in due to abdominal pain. ABCs were intact and vitals were stable on presentation. Physical exam with right upper to mid abdominal tenderness that is very mild with no signs of peritonitis. An IV was placed and basic labs were obtained and were significant for white blood cell count of 12 which is just above normal, normal CRP, normal creatinine, negative test, urinalysis with no signs of infection. CT abdomen pelvis negative in the region that she is hurting, although she does have some pelvic cyst which are likely ovarian in nature. No signs of appendicitis, diverticulitis, or other infectious concerns. Repeat abdominal exam continues to show no lower abdominal tenderness and specifically no pelvic tenderness. This would make ovarian torsion very unlikely given she is not having pain over her ovaries. However, one of the cyst is quite large. We will order an outpatient ultrasound and have her follow-up with gynecology. I discussed this finding with the patient, and discussed that we do need an ultrasound. She states that she is done having children, and at this point elpidio ribera would likely want a hysterectomy. Because of this, will not transfer her emergently to an ED when ovarian torsion is also unlikely, especially given she does not want those organs anymore. I will also prescribe hydrocodone as an outpatient. Pain has improved after given IV morphine here and nausea better after Zofran. I believe she is otherwise stable for discharge with outpatient follow-up. She was sent home with strict return precautions Diagnostic Imaging Diagonstic Imaging: CT (abd/pelvis) Comments ADMIT DATE: 03/12/23/ER FS Draft Date of Exam:03/12/23 CT ABDOMEN/PELVIS W PROCEDURE: CT abdomen and pelvis with contrast. TECHNIQUE: Multiple contiguous axial images were obtained through the abdomen and pelvis after administration of intravenous contrast. Auto Exposure Controls were utilized during the CT exam to meet ALARA standards for radiation dose reduction. All CT scans use one or more of the following dose optimizing techniques: automated exposure control, MA and/or KvP adjustment based on patient size and exam type or iterative reconstruction. INDICATION: Vomiting. Nausea. Abdominal pain. COMPARISON: 02/13/2022 FINDINGS: Included portions of the lung bases are clear. CT ABDOMEN: There is colonic diverticulosis, no CT evidence acute diverticulitis. Normal appendix is identified. Small bowel loops are nondilated. The kidneys, adrenal glands, spleen, pancreas, and liver have a normal CT appearance. There is no loculated fluid collection, free fluid or free air within the abdomen. No abnormal mesenteric or retroperitoneal adenopathy is seen. Osseous structures show no acute abnormalities. CT PELVIS: Bilobed cyst is noted within the posterior pelvis just to the right lateral midline and measures 5.5 x 7.3 cm. Cystic structure is also seen within the left adnexa and appears to be associated with the left ovary. It measures 3.3 x 3 cm. Note is made of 4.8 x 3.4 cm left adnexal cyst on prior exam. Urinary bladder is opacified. No calculi are seen within urinary bladder. There is no loculated fluid collection, free fluid, nor free air within the pelvis. No abnormal adenopathy is seen. Osseous structures show no acute abnormalities. IMPRESSION: 1. Pelvic cystic structures, which are presumed to be ovarian in nature. 2. Colonic diverticulosis, but no CT evidence of acute diverticulitis. Dictated on workstation # [id number] Dict: 03/12/23 1123 Trans: 03/12/23 1132 CV [id number] Interpreted by: ABRAHAM FERNANDO MD Electronically signed by: Departure Impression Primary Impression: Right sided abdominal pain Additional Impression: Pelvic cyst Disposition: 01 HOME, SELF-CARE Condition: Stable Departure-Patient Inst. Decision time for Depature: 11:50 Referrals: ERIC CALDERON MD (PCP) Primary Care Physician PIETRO WARREN DO Patient Instructions: Abdominal Pain, Adult ED, Ovarian Cyst (DC) Add. Discharge Instructions: We do not see anything remarkable in your abdomen where you are hurting on your CT. Additionally your labs were reassuring. You do have some cyst on her ovaries and in your pelvis, some of them are quite large. This is not where you are hurting, however it would be recommended to get an ultrasound of the area to be further evaluate these and follow-up with gynecology. Continue the ibuprofen as needed for pain, hydrocodone was sent to your pharmacy if that is not helping. Nausea medicines were also sent. Scripts Ondansetron (Ondansetron Odt) 4 Mg Tab.rapdis 4 MG SL Q6H PRN for NAUSEA/VOMITING for 5 Days, #20 TAB Prov: CHERIE CERVANTES MD 03/12/23 Hydrocodone/Acetaminophen (Hydrocodone-Acetamin 5-325 mg) 5 Mg-325 Mg Tablet 1 TAB PO Q6H PRN for PAIN-MODERATE (5-7) for 3 Days, #12 TAB Prov: CHERIE CERVANTES MD 03/12/23 Work/School Note: Work Release Form Date Seen in the Emergency Department: March 12, 2023 Return to Work: March 14, 2023 Restrictions: No Restrictions CHERIE CERVANTES MD March 12, 2023 10:17
[2023-03-12 10:25] LABS: BASOPHILS # (AUTO) 0.1 10^3/uL (0.0-0.1); BASOPHILS % (AUTO) 1 % (0-10); EOSINOPHILS # (AUTO) 0.6 10^3/uL (0.0-0.3); EOSINOPHILS % (AUTO) 5 % (0-10); HEMATOCRIT 40 % (35-52); HEMOGLOBIN 13.4 g/dL (11.5-16.0); LYMPHOCYTES # (AUTO) 3.6 10^3/uL (1.0-4.0); LYMPHOCYTES % (AUTO) 30 % (12-44); MEAN CORPUSCULAR HEMOGLOBIN 31 pg (25-34); MEAN CORPUSCULAR HGB CONC 34 g/dL (32-36); MEAN CORPUSCULAR VOLUME 92 fL (80-99); MEAN PLATELET VOLUME 10.5 fL (9.0-12.2); MONOCYTES # (AUTO) 0.7 10^3/uL (0.0-1.0); MONOCYTES % (AUTO) 6 % (0-12); NEUTROPHILS # (AUTO) 6.9 10^3/uL (1.8-7.8); NEUTROPHILS % (AUTO) 58 % (42-75); PLATELET COUNT 295 10^3/uL (130-400)
[2023-03-12 10:27] LABS: BILIRUBIN,URINE NEGATIVE (NEGATIVE); CLARITY,URINE CLEAR; COLOR,URINE YELLOW; GLUCOSE, URINE (UA) NEGATIVE (NEGATIVE); KETONES,URINE NEGATIVE (NEGATIVE); LEUKOCYTE ESTERASE ,URINE NEGATIVE (NEGATIVE); NITRITE,URINE NEGATIVE (NEGATIVE); PROTEIN,URINE NEGATIVE (NEGATIVE)
[2023-03-12 10:35] LABS: BACTERIA,URINE NEGATIVE /HPF; SQUAMOUS EPITHELIAL CELL,UR 0-2 /HPF; WBC,URINE 0-2 /HPF
[2023-03-12 10:47] LABS: BILIRUBIN,TOTAL 0.2 MG/DL (0.1-1.0); CALCIUM 9.6 MG/DL (8.5-10.1); CREATININE SERUM 0.63 MG/DL (0.60-1.30); POTASSIUM 4.2 MMOL/L (3.6-5.0)
[2023-03-12 10:48] LABS: ALBUMIN 4.1 GM/DL (3.2-4.5); TOTAL PROTEIN 6.9 GM/DL (6.4-8.2)
[2023-03-12] MEDS ORDERED: HOLD METFORMIN - RECEIVED CONTRAST 20 ML VIAL IV SCH (11:00)
[2023-03-12] MEDS ORDERED: NS 100 ML (IVPB) BAG IV ONE (11:00)
[2023-03-12] MEDS ORDERED: IOHEXOL 350 MG/ML 100 ML (OMNIPAQUE 350) VIAL IV ONE (11:00)
--- NOTE | 2023-03-12 11:32 | Diagnostic Imaging Report ---
PROCEDURE: CT abdomen and pelvis with contrast. TECHNIQUE: Multiple contiguous axial images were obtained through the abdomen and pelvis after administration of intravenous contrast. Auto Exposure Controls were utilized during the CT exam to meet ALARA standards for radiation dose reduction. All CT scans use one or more of the following dose optimizing techniques: automated exposure control, MA and/or KvP adjustment based on patient size and exam type or iterative reconstruction. INDICATION: Vomiting. Nausea. Abdominal pain. COMPARISON: 02/13/2022 FINDINGS: Included portions of the lung bases are clear. CT ABDOMEN: There is colonic diverticulosis, no CT evidence acute diverticulitis. Normal appendix is identified. Small bowel loops are nondilated. The kidneys, adrenal glands, spleen, pancreas, and liver have a normal CT appearance. There is no loculated fluid collection, free fluid or free air within the abdomen. No abnormal mesenteric or retroperitoneal adenopathy is seen. Osseous structures show no acute abnormalities. CT PELVIS: Bilobed cyst is noted within the posterior pelvis just to the right lateral midline and measures 5.5 x 7.3 cm. Cystic structure is also seen within the left adnexa and appears to be associated with the left ovary. It measures 3.3 x 3 cm. Note is made of 4.8 x 3.4 cm left adnexal cyst on prior exam. Urinary bladder is opacified. No calculi are seen within urinary bladder. There is no loculated fluid collection, free fluid, nor free air within the pelvis. No abnormal adenopathy is seen. Osseous structures show no acute abnormalities. IMPRESSION: 1. Pelvic cystic structures, which are presumed to be ovarian in nature. 2. Colonic diverticulosis, but no CT evidence of acute diverticulitis. Dictated by: Dictated on workstation # [id number]
[2023-03-12] MEDS ORDERED: ACHD5005 PO (11:40)
[2023-03-12] MEDS ORDERED: ONDA4TAB11 SL (11:48)
[2023-03-12 11:55] VITALS: BP 140/93
== END 2023-03-12 11:55 | disposition home or self-care (01) ==
LOC: EDUNIT# 10:02 → ER FS 10:05
DX: N94.89 Other specified conditions associated with female genital organs and menstrual cycle (principal); F17.210 Nicotine dependence, cigarettes, uncomplicated; Z87.19 Personal history of other diseases of the digestive system; Z90.49 Acquired absence of other specified parts of digestive tract
CPT/HCPCS: 36415; 74177; 80053; 81000; 83690; 84703; 85025; 86141; Q9967

== ENCOUNTER → 2023-03-15 | Outpatient (CLI) | payer BC ==
[~2023-03-15] MED LIST changes: +ONDA4TAB11 SL
--- NOTE | 2023-03-15 19:51 | Diagnostic Imaging Report ---
PROCEDURE: US Non-ob pelvis comp/trans. TECHNIQUE: Multiple realtime grayscale images were obtained of the pelvis in various projections endovaginally. Transabdominal imaging was also performed. INDICATION: Cystic lesion seen on previous CT. History of abdominal pain. COMPARISON: CT dated 03/12/2023 FINDINGS: The uterus is anteverted and measures 7.2 x 3.7 x 5.4 cm. No suspicious myometrial lesions are seen. Endometrial stripe measures 5 mm in AP thickness. Visualized portions of the cervix are unremarkable. No adnexal masses or free fluid are seen. Bilateral ovarian cysts are identified. There are 2 large anechoic adjacent cysts of the right ovary versus a single large septated cyst. As a whole, the septated cystic lesion measures 6.7 x 4.9 x 4.5 cm. No other complex features are seen. Left ovarian cyst is also identified and has an anechoic benign appearance. It measures 3.7 x 2.2 x 3.3 cm. As a whole, right ovary measures 7.2 x 4.1 x 5.2 cm and the left measures 4.4 x 2.6 x 3.8 cm. IMPRESSION: 1. Bilateral ovarian cystic lesions as above. Again, the cyst on the right may represent 2 anechoic benign adjacent cysts versus a single large septated cyst. Otherwise, no other complex features are identified. Follow-up in 2 cycles could be performed to ensure appropriate interval resolution. Dictated by: Dictated on workstation # [id number]
== END ==
LOC: RAD 13:00
PROVIDERS: ATTEND Emergency Medicine
DX: N83.202 Unspecified ovarian cyst, left side (principal); N83.201 Unspecified ovarian cyst, right side; N94.89 Other specified conditions associated with female genital organs and menstrual cycle
CPT/HCPCS: 76830; 76856

== ENCOUNTER 2023-04-15 11:01 | Outpatient (CLI) | payer BC ==
[~2023-04-15] VITALS: Ht 160 cm; Wt 85.9 kg
== END 2023-04-15 13:09 | disposition home or self-care (01) ==
LOC: PREOP 11:01
PROVIDERS: ATTEND Obstetrics & Gynecology
DX: Z01.818 Encounter for other preprocedural examination (principal)

== ENCOUNTER 2023-04-19 06:53 | Day surgery (SDC) | payer BC ==
[2023-04-19] VITALS (12 sets, daily range): BP systolic 128–148; BP diastolic 77–843
[~2023-04-19] VITALS: Ht 160 cm; Wt 85.9 kg
[2023-04-19] MEDS ORDERED: ONDANSETRON 4 MG/2 ML (SDV) Z0FRAN ONE (07:29)
[2023-04-19] MEDS ORDERED: LIDOCAINE PF 2% 5 ML (XYLOCAINE) VIAL ONE (07:29)
[2023-04-19] MEDS ORDERED: proPOfol 200 MG/20 ML (DIPRIVAN) VIAL IV ONE (07:29)
[2023-04-19] MEDS ORDERED: ROCURONIUM 50 MG/5 ML (ZEMURON) VIAL IV ONE (07:29)
[2023-04-19] MEDS ORDERED: MIDAZOLAM 2 MG/2 ML (VERSED) VIAL ONE (07:30)
[2023-04-19] MEDS ORDERED: fentaNYL INJ 100 MCG/2 ML AMP ONE (07:30)
[2023-04-19] MEDS ORDERED: ceFAZolin INJECTION 2,000 MG in NS (IVPB) 50 ML IV ONE (07:45)
[2023-04-19] MEDS ORDERED: BUPIVACAINE 0.25% 30 ML (SENSORCAINE) VIAL ONE (07:51)
[2023-04-19] MEDS: LACTATED RINGERS 1,000 ML IV PRN ×3 (07:57→13:41)
[2023-04-19 08:13] LABS: BASOPHILS # (AUTO) 0.1 10^3/uL (0.0-0.1); BASOPHILS % (AUTO) 1 % (0-10); EOSINOPHILS # (AUTO) 0.3 10^3/uL (0.0-0.3); EOSINOPHILS % (AUTO) 3 % (0-10); HEMATOCRIT 41 % (35-52); HEMOGLOBIN 13.7 g/dL (11.5-16.0); LYMPHOCYTES # (AUTO) 1.9 10^3/uL (1.0-4.0); LYMPHOCYTES % (AUTO) 17 % (12-44); MEAN CORPUSCULAR HEMOGLOBIN 31 pg (25-34); MEAN CORPUSCULAR HGB CONC 34 g/dL (32-36); MEAN CORPUSCULAR VOLUME 92 fL (80-99); MEAN PLATELET VOLUME 10.6 fL (9.0-12.2); MONOCYTES # (AUTO) 0.6 10^3/uL (0.0-1.0); MONOCYTES % (AUTO) 5 % (0-12); NEUTROPHILS # (AUTO) 8.2 10^3/uL (1.8-7.8); NEUTROPHILS % (AUTO) 74 % (42-75); PLATELET COUNT 343 10^3/uL (130-400); WHITE BLOOD COUNT 11.1 10^3/uL (4.3-11.0)
--- NOTE | 2023-04-19 08:16 | Progress Note-Pre Operative ---
Pre-Operative Progress Note Date H&P Reviewed: Apr 19, 2023 Time H&P Reviewed: 08:15 History & Physical: H&P Reviewed, No changes noted Pre-Operative Diagnosis: BL ovarian cysts pelvic pain Plan for TLH BSO CLAUDIO VASQUES DO Apr 19, 2023 08:16
[2023-04-19 08:18] LABS: PROTHROMBIN TIME PATIENT 13.2 SEC (12.2-14.7)
[2023-04-19 08:24] LABS: ALBUMIN 3.8 GM/DL (3.2-4.5); BILIRUBIN,TOTAL 0.3 MG/DL (0.1-1.0); CALCIUM 8.6 MG/DL (8.5-10.1); CREATININE SERUM 0.64 MG/DL (0.60-1.30); POTASSIUM 3.9 MMOL/L (3.6-5.0); TOTAL PROTEIN 6.7 GM/DL (6.4-8.2)
[2023-04-19] MEDS ORDERED: BUPIVACAINE 0.25% 30 ML (SENSORCAINE) VIAL INJ ONE (09:36)
[2023-04-19] MEDS ORDERED: GLYCOPYRROLATE 0.2 MG/ML (ROBINUL) 2 ML VIAL ONE (10:21)
[2023-04-19] MEDS ORDERED: NEOSTIGMINE (BLOXIVERZ ) 1 MG/1ML 10 ML VIAL ONE (10:21)
[2023-04-19] MEDS ORDERED: SEVOFLURANE (ULTANE) 15 ML INHAL SOLN ONE (10:27)
[2023-04-19] MEDS ORDERED: morphine INJ 10 MG/ML 1ML (SYR OR VIAL) ONE (10:38)
[2023-04-19] MEDS ORDERED: KETOROLAC 30 MG/ML VIAL IVP ONE (10:45)
[2023-04-19] MEDS ORDERED: morphine INJ 10 MG/ML 1ML (SYR OR VIAL) IVP ONE (10:45)
[2023-04-19] MEDS ORDERED: ONDANSETRON 4 MG/2 ML (SDV) Z0FRAN IVP PRN ×2 (10:45→15:30)
[2023-04-19] MEDS ORDERED: MEPERIDINE (DEMEROL) INJ 50 MG/ML IVP ONE (10:45)
[2023-04-19] MEDS ORDERED: PROMETHAZINE INJ 25 MG/ML (PHENERGAN) AMP IVP ONE (10:45)
[2023-04-19] MEDS ORDERED: HYDROmorphone 2 MG/ML VIAL (DILAUDID) IV ONE (10:45)
[2023-04-19] MEDS ORDERED: METOCLOPRAMIDE INJ 10 MG/2 ML (REGLAN) IV PRN (11:00)
[2023-04-19] MEDS ORDERED: morphine INJ 4 MG/ML 1 ML (VIAL/SYRINGE) IV PRN (11:00)
[2023-04-19] MEDS ORDERED: D5 LR IV SOLUTION 1,000 ML IV SCH (11:00)
[2023-04-19] MEDS ORDERED: BENZOCAINE/MENTHOL (DERMOPLAST) 56 ML CAN TP PRN (11:00)
[2023-04-19] MEDS ORDERED: NALOXONE 0.4 MG/ML 1 ML (NARCAN) VIAL IV PRN (11:00)
--- NOTE | 2023-04-19 11:08 | Operative Report ---
Operative Report Date of Procedure/Surgery Apr 19, 2023 Surgeon (s) CINDI OVIEDO DO [facility] [employer] [facility] (s): Stella Post-Operative Diagnosis BL ovarian cysts pelvic pain Procedure Performed Total laparoscopic hysterectomy with bilateral salpingo-oophorectomy and cystoscopy Description of Procedure Anesthesia Type: General Estimated blood loss (mL): Minimal Specimen(s) collected/removed Uterus cervix tubes and ovaries Description of the Procedure Informed consent was obtained and signed patient was taken to OR suite number 3.The patient was placed under general endotracheal anesthesia was placed in the dorsolithotomy position prepped and draped in usual sterile fashion. A timeout was performed. Pelvic exam under anesthesia revealed a normal-sized uterus slightly retroverted and bilateral adnexal masses. A weighted speculum was placed to the posterior vaginal vault and single-tooth tenaculum was used to grasp into the lip of the cervix.A Bernal catheter was inserted into the urinary bladder without difficulty. The uterus sounded to 8 cm and the os was dilated to allow passage of the Diana uterine manipulator. The Diana was then inserted and the single- tooth and weighted speculum were removed without any difficulty.Next attention was paid to the abdomen where the supraumbilical area was grasped with towel clips injected with quarter percent plain Marcaine and made a small incision and a 5 mm trocar using direct visualization was entered into the abdominal cavity without any difficulty. The abdomen was insufflated using carbon oxide gas.The patient was placed in Trendelenburg position and the pelvic contents were identified.3 lateral ports were placed first injecting with quarter percent plain Marcaine making my incision and placing a 5 mm port in the left lower quadrant 12 mm varies trocar in the left upper quadrant and a 5 mm trocar in the right lower quadrant.Using the LigaSure and grasper the pelvic contents were inspected. Uterus was noted to be globular appearing. Both ovaries had bilateral ovarian cysts. The posterior cul-de-sac was noted to be free and clear of adhesions. Both ureters were identified. I then began the hysterectomy. We used the LigaSure and starting on the right side the infundibulopelvic ligament was cauterized and incised carried down to the round ligament on the right side which was cauterized and incised the anterior posterior leaves of broad ligament were and cauterized and incised to just above the uterine arteries.In similar fashion the left infundibulopelvic ligament was cauterized and incised down to the round ligament the round ligament was cauterized and incised and the anterior and posterior leaves of the broad ligament were and cauterized and incised just above the uterine artery. The anterior leaf of the broad ligament was continued anteriorly to create the bladder flap. The patient has had 2 previous sections so there was a bit of scar tissue. However we were able to reflect the bladder flap off of the cervix. Once this was freeAnd clear I then cauterized and incised the uterine arteries. I then used the electrocautery hook to enter into the vagina. I then created my vaginal cuff by incising using the elect rocautery hook circumferentially. Once I was able to free up the cervix from the vaginal cuff, I then removed the uterus tubes and ovaries from the pelvic cavity. These were left in the vagina to help maintain pneumoperitoneum. All the pedicles were inspected and were noted to be hemostatic. Using the O V- LocEndoscopic suture I reapproximated the vaginal cuff together. Once the vaginal cuff was reapproximated the uterus tubes and ovaries were removed from the vagina and pneumoperitoneum was maintained. I brought the pressure down to 6 and inspected all of my pedicles which were all hemostatic.I then removed the laparoscope from the abdominal cavity and used it to do my cystoscopy. Attention was paid to the perineum where the Bernal catheter was removed and using the cystoscope and sterile water as a fluid medium entered into the bladder the bladder was noted to be intact and both ureters were seen with urine eggressing from them.The cystoscope was then removed and the Bernal catheter was placed back inside the urinary bladder. All my trocars were removed and all of the incisions were reapproximated using Dermabond and then Band-Aids were placed over it. All of my counts were correct x2 the patient was taken to recovery room in stable condition. The estimated blood loss was minimal fluids were 1700 cc and urine output was 375. Findings of the Procedure Bilateral ovarian cysts the globular looking uterus bladder and ureters intact Allergies and Home Medications Allergies Coded Allergies: No Known Drug Allergies (Verified , 04/15/23) Patient Home Medication List Home Medication List Reviewed: Yes Aspirin (Children's Aspirin) 81 Mg Tab.chew, 81 MG PO DAILY Prescribed by: YEN SPIVEY on 3/26/21 1550 Last Action: Reviewed Benzocaine/Menthol (Dermoplast Pain Relieving [place]) 20 %-0.5 % Aerosol, 56 EA TP UD PRN for PAIN-MILD (1-4) Prescribed by: Cindi Oviedo on 04/19/231730 Last Action: Reviewed Docusate Sodium (Docusate Sodium) 100 Mg Capsule, 100 MG PO BID Prescribed by: Cindi Oviedo on 04/19/231730 Last Action: Reviewed Hydrocodone/Acetaminophen (Hydrocodone-Acetamin 5-325 mg) 5 Mg-325 Mg Tablet, 1 EA PO Q4H PRN for PAIN-MODERATE (5-7) Prescribed by: Cindi Oviedo on 04/19/231730 Last Action: Reviewed Ibuprofen (Ibu) 600 Mg Tablet, 600 MG PO Q6H Prescribed by: Cindi Oviedo on 04/19/231730 Last Action: Reviewed Metoprolol Succinate (Metoprolol Succinate) 25 Mg Tab.er.24h, 25 MG PO DAILY Prescribed by: YEN SPIVEY on 01/31/211549 Last Action: Reviewed Discontinued Medications Acetaminophen (Tylenol Extra Strength) 500 Mg Tablet, 1,000 MG PO Q6H PRN for PAIN-MILD (1-4), (Reported) Discontinued Reason: No Longer Taking Entered as Reported by: FRANK WALLACE on 01/30/21 144 Albuterol Sulfate (Proventil Hfa) 6.7 Gm Hfa.aer.ad, 2 PUFF INH Q6H PRN for SHORTNESS OF BREATH, (Reported) Discontinued Reason: No Longer Taking Entered as Reported by: FRANK WALLACE on 01/30/21 144 Atorvastatin Calcium (Atorvastatin Calcium) 80 Mg Tablet, 80 MG PO HS Discontinued Reason: No Longer Taking Prescribed by: YEN SPIVEY on 01/31/211549 Cetirizine HCl (Zyrtec) 10 Mg Tablet, 10 MG PO DAILY PRN for ALLERGY SYMPTOMS, (Reported) Discontinued Reason: No Longer Taking Entered as Reported by: FRANK WALLACE on 01/30/21 144 Clopidogrel Bisulfate (Clopidogrel) 75 Mg Tablet, 75 MG PO DAILY Discontinued Reason: No Longer Taking Prescribed by: YEN SPIVEY on 01/31/21 155 Cyclobenzaprine HCl (Cyclobenzaprine HCl) 10 Mg Tablet, 10 MG PO Q8H PRN for SPASMS Discontinued Reason: No Longer Taking Prescribed by: ANGELES MIRELESVENSTINE on 06/14/21 1709 Doxycycline Hyclate (Doxycycline Hyclate) 100 Mg Tablet, 100 MG PO BID Discontinued Reason: No Longer Taking Prescribed by: CHELSEA TURNER on 04/04/222116 Famotidine (Pepcid) 20 Mg Tablet, 20 MG PO BID Discontinued Reason: No Longer Taking Prescribed by: RASHAWN HOLGUIN on 03/06/22 0927 Hydrocodone/Acetaminophen (Hydrocodone-Acetamin 5-325 mg) 1 Each Tablet, 1 TAB P O Q6H PRN for PAIN-SEVERE (8-10) Prescribed by: EMILIE STOREY on 02/13/22 1303 Last Action: Discontinued Hydrocodone/Acetaminophen (Hydrocodone-Acetamin 5-325 mg) 5 Mg-325 Mg Tablet, 1 TAB PO Q6H PRN for PAIN-MODERATE (5-7) Discontinued Reason: Duplicate Order Prescribed by: CHERIE CERVANTES on 03/12/23 1140 Nicotine (Nicoderm Cq) 1 Each Patch.td24, 21 MG TD DAILY@0900 Discontinued Reason: No Longer Taking Prescribed by: YOON MAHER on 02/01/21 1054 Ondansetron (Ondansetron Odt) 4 Mg Tab.rapdis, 4 MG PO Q6H Discontinued Reason: No Longer Taking Prescribed by: CHELSEA TURNER on 04/04/222116 Ondansetron (Ondansetron Odt) 4 Mg Tab.rapdis, 4 MG SL Q6H PRN for NAUSEA/VOMITING Discontinued Reason: No Longer Taking Prescribed by: CHERIE CERVANTES on 03/12/23 1148 CINDI OVIEDO DO Apr 19, 2023 11:08
[2023-04-19] MEDS: HYDROcodone/APAP 5 MG/325 MG (LORTAB) TAB PO PRN ×2 (13:42→17:47)
[2023-04-19] MEDS ORDERED: DOCU100C37 PO (16:54)
[2023-04-19] MEDS ORDERED: IBUP-844 PO (16:54)
[2023-04-19] MEDS ORDERED: ACHD5005 PO (16:54)
[2023-04-19] MEDS ORDERED: BENZ78AE5 TP (16:54)
[2023-04-19] MEDS ORDERED: KETOROLAC 15 MG/ML VIAL IV SCH (17:00)
--- NOTE | 2023-04-19 17:20 | Short Stay Summary ---
Discharge Summary Hospital Course Was the Problem List Reviewed?: Yes Final Diagnosis: s/p TLS BSO cystoscopy Hospital Course Date of Admission: Admission Diagnosis : Family Physician/Provider: Alberto Huerta MD Date of Discharge: 04/19/23 Discharge Diagnosis: s/p TLH BSO Hospital Course: Pt was admitted for TLHBSO She did very well intraoperatively. Postoperatively she did well and her pain was controlled. she was dc'd to home with pain medications and instructions. Labs and Pending Lab Test: Laboratory Tests 04/19/23 07:40: White Blood Count 11.1H, Red Blood Count 4.44, Hemoglobin 13.7, Hematocrit 41, Mean Corpuscular Volume 92, Mean Corpuscular Hemoglobin 31, Mean Corpuscular Hemoglobin Concent 34, Red Cell Distribution Width 13.3, Platelet Count 343, Mean Platelet Volume 10.6, Immature Granulocyte % (Auto) 0, Neutrophils (%) (Auto) 74, Lymphocytes (%) (Auto) 17, Monocytes (%) (Auto) 5, Eosinophils (%) (Auto) 3, Basophils (%) (Auto) 1, Neutrophils # (Auto) 8.2H, Lymphocytes # (Auto) 1.9, Monocytes # (Auto) 0.6, Eosinophils # (Auto) 0.3, Basophils # (Auto) 0.1, Immature Granulocyte # (Auto) 0.0, Prothrombin Time 13.2, INR Comment 1.0, Sodium Level 136, Potassium Level 3.9, Chloride Level 107, Carbon Dioxide Level 22, Anion Gap 7, Blood Urea Nitrogen 6L, Creatinine 0.64, Estimat Glomerular Filtration Rate 116, BUN/Creatinine Ratio 9, Glucose Level 99, Calcium Level 8.6, Corrected Calcium 8.8, Total Bilirubin 0.3, Aspartate Amino Transf (AST/SGOT) 16, Alanine Aminotransferase (ALT/SGPT) 22, Alkaline Phosphatase 60, Total Protein 6.7, Albumin 3.8 Home Meds Active Children's Aspirin (Aspirin) 81 Mg Tab.chew 81 Mg PO DAILY Metoprolol Succinate 25 Mg Tab.er.24h 25 Mg PO DAILY Assessment/Pt Instructions Pt is s/p TLHBSO doing well tolerating pain with pain medications. she was able to tolerate her diet and urinate on her own. b she was discharged to home with pain medication and instructions. Discharge Instructions Discharge Diet: Regular Diet Activity as Tolerated: Yes (pelvic rest nothing in the vagina) Discharge Physical Examination General Appearance: Alert, Oriented X3 Respiratory: Clear to Auscultation Cardiovascular: Regular Rate Abdominal: Normal Bowel Sounds, Soft Extremities: No Clubbing, No Cyanosis, No Edema Skin: No Rashes Neuro: Normal Speech Psych/Mental Status: Mental Status NL Allergies: Coded Allergies: No Known Drug Allergies (Verified , 04/15/23) Discharge Summary Date of Admission Date of Discharge Discharge Date: Apr 19, 2023 CLAUDIO VASQUES DO Apr 19, 2023 17:20
[2023-04-20] MEDS ORDERED: DOCUSATE SODIUM 100 MG (COLACE) CAP PO SCH (09:00)
--- NOTE | 2023-04-20 09:53 | Anesthesia-General Post-Op ---
General Patient Condition Mental Status/LOC: Same as Preop Cardiovascular: Satisfactory Nausea/Vomiting: Absent Respiratory: Satisfactory Pain: Controlled Complications: Absent Post Op Complications Complications None Follow Up Care/Instructions Patient Instructions None needed. Anesthesia/Patient Condition Patient Condition Patient was doing well last evening prior to her discharge to home with no complaints, stable vital signs, no apparent adverse anesthesia problems per nursing staff. No complications reported per nursing. WILTON CEJA DO Apr 20, 2023 09:53
[2023-04-20] MEDS ORDERED: IBUPROFEN 600 MG (MOTRIN) TAB PO SCH (17:00)
[2023-04-21] MEDS ORDERED: ENOXAPARIN 40 MG/0.4 ML (LOVENOX) SYR SC SCH (09:00)
== END 2023-04-19 17:55 ==
LOC: SDC 06:53 → WS 11:12 → SDC 17:55
PROVIDERS: ATTEND Obstetrics & Gynecology
DX: N83.292 Other ovarian cyst, left side (principal); N83.291 Other ovarian cyst, right side; N94.89 Other specified conditions associated with female genital organs and menstrual cycle; G89.29 Other chronic pain; M54.9 Dorsalgia, unspecified; N83.8 Other noninflammatory disorders of ovary, fallopian tube and broad ligament; F17.210 Nicotine dependence, cigarettes, uncomplicated; I25.10 Atherosclerotic heart disease of native coronary artery without angina pectoris; I10 Essential (primary) hypertension; Z79.82 Long term (current) use of aspirin
CPT/HCPCS: 36415; 80053; 84703; 85025; 85610; 86850; 86900; 86901; 87081

== ENCOUNTER 2023-05-01 18:16 | Emergency (ER) | payer BC ==
[~2023-05-01 18:16] MED LIST changes: +BENZ78AE5 TP; +DOCU100C37 PO; +IBUP-844 PO
[2023-05-01 18:24] VITALS: BP 138/91
--- NOTE | 2023-05-01 18:26 | ED Back Pain ---
General Chief Complaint: Back Problems Stated Complaint: LT HIP/LWR BACK PAIN Source of Information: Patient, Old Records Exam Limitations: No Limitations History of Present Illness Date Seen by Provider: May 01, 2023 Time Seen by Provider: 18:17 Initial Comments 37-year-old female with past medical history of hypertension coming in due to low back and left hip pain. She slipped on a step last night, caught herself with her hand, and about an hour later started having low back and left hip pain. Has been ambulatory, denies any weakness or numbness. Denies any bowel or bladder issue. Took ibuprofen and Tylenol today with some relief. Otherwise denying any other acute complaints Allergies and Home Medications Allergies Coded Allergies: No Known Drug Allergies (Verified , 04/15/23) Patient Home Medication List Home Medication List Reviewed: Yes Aspirin (Children's Aspirin) 81 Mg Tab.chew, 81 MG PO DAILY Prescribed by: YEN SPIVEY on 01/31/21 1550 Benzocaine/Menthol (Dermoplast Pain Relieving [place]) 20 %-0.5 % Aerosol, 56 EA TP UD PRN for PAIN-MILD (1-4) Prescribed by: Cindi Oviedo on 04/19/23 173 Docusate Sodium (Docusate Sodium) 100 Mg Capsule, 100 MG PO BID Prescribed by: Cindi Oviedo on 04/19/23 173 Hydrocodone/Acetaminophen (Hydrocodone-Acetamin 5-325 mg) 5 Mg-325 Mg Tablet, 1 EA PO Q4H PRN for PAIN-MODERATE (5-7) Prescribed by: Cindi Oviedo on 04/19/23 1731 Ibuprofen (Ibu) 600 Mg Tablet, 600 MG PO Q6H Prescribed by: Cindi Oviedo on 04/19/23 1731 Metoprolol Succinate (Metoprolol Succinate) 25 Mg Tab.er.24h, 25 MG PO DAILY Prescribed by: YEN SPIVEY on 01/31/21 1550 Review of Systems Constitutional: No fever EENTM: no symptoms reported Respiratory: no symptoms reported Cardiovascular: no symptoms reported Gastrointestinal: no symptoms reported 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: no symptoms reported Musculoskeletal: see HPI Skin: no symptoms reported Psychiatric/Neurological: No Symptoms Reported Past Ihfgdwu-Mwbggg-Mujxcm Hx Patient Social History Tobacco Use?: Yes Tobacco type used: Cigarettes Pt feels they are or have been: No Immunizations Up To Date Tetanus Booster (TDap): Unknown PED Vaccines UTD: Yes First/Initial COVID19 Vaccinat: MAY 2021 Second COVID19 Vaccination Ilir: JUNE 2021 Third COVID19 Vaccination Date: MAY 2021 Seasonal Allergies Seasonal Allergies: Yes Past Medical History Surgery/Hospitalization HX: CAD, stent placement, cholecystectomy; x2, hysterectomy Surgeries: Yes Abdominal, Section, Coronary Stent, Gallbladder, Hysterectomy Respiratory: No Currently Using CPAP: No Currently Using BIPAP: No Cardiac: Yes (X1 CARDIAC STENT PLACED 2019) Coronary Artery Disease Neurological: Yes Headaches /Migraines 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 Disorders: No 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 Disorders: Menstrual Problems [employer] History: IUD 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: No Gastrointestinal: Yes Diverticulosis, Gall Bladder Disease Musculoskeletal: No Endocrine: No HEENT: No Loss of Vision: Denies Hearing Impairment: Denies Cancer: No Psychosocial: Yes Anxiety, Depression Integumentary: No Blood Disorders: No Adverse Reaction/Blood Tranf: No Family Medical History Arthritis 19 MOTHER GRANDMA-MATERAL Colon cancer GRANDP-MATERANL Completed stroke 19 FATHER Congenital disease 19 FATHER Congenital heart disease 19 FATHER Diabetes mellitus 19 FATHER GRANDMA-MATERAL Hypercholesterolemia Myocardial infarction 19 FATHER GRANDP-MATERANL Heart Disease, Cancer, Diabetes Physical Exam Vital Signs Vital Signs - First Documented 05/01/23 18:24 Temp 36.4 Pulse 115 Resp 18 B/P (MAP) 138/91 (107) Pulse Ox 99 O2 Delivery Room Air Capillary Refill : Height, Weight, BMI Height: 5'5.00" Weight: 196lbs. 0.0oz. 88.556937ri; 33.55 BMI Method:Stated General Appearance: No Apparent Distress, WD/WN HEENT: PERRL/EOMI, Normal ENT Inspection, Pharynx Normal Neck: Full Range of Motion, Normal Inspection, Non Tender, Supple Cardiovascular: Regular Rate, Rhythm, No Edema, Normal Peripheral Pulses Respiratory: Chest Non Tender, Lungs Clear, Normal Breath Sounds, No Accessory Muscle Use, No Respiratory Distress Gastrointestinal: Normal Bowel Sounds, Non Tender, Soft; No Distended, No Guarding Back: Normal Inspection, No CVA Tenderness, No Vertebral Tenderness, Other (left paraspinal tenderness) Extremity: Normal Capillary Refill, Normal Inspection, Normal Range of Motion, Non Tender, No Calf Tenderness Neurologic/Psychiatric: Alert, No Motor/Sensory Deficits, Normal Mood/Affect Skin: Normal Color, Warm/Dry Progress/Results/Core Measures Results/Orders My Orders Orders - CHERIE CERVANTES MD Lumbar Spine 2 Or 3 View (05/01/23 18:23) Pelvis With Left Hip 2-3 View (05/01/23 18:23) Hydrocodone/Apap 5/325 Tablet (Lortab 5 (05/01/23 18:30) Medications Given in ED Current Medications Medications Dose Ordered Sig/Marnie Route Start Time Stop Time Status Last Admin Dose Admin Acetaminophen/ Hydrocodone Bitart 1 ea ONCE ONCE PO 05/01/23 18:30 05/01/23 18:31 DC 05/01/23 18:30 1 EA Vital Signs/I&O 05/01/23 18:24 Temp 36.4 Pulse 115 Resp 18 B/P (MAP) 138/91 (107) Pulse Ox 99 O2 Delivery Room Air Progress Progress Note : Progress Note 37-year-old female with above history coming in after a ground-level fall with low back pain and left hip pain. Did not actually hit her back on the ground, caught herself with her arm. ABCs were intact and vitals were stable on presentation. Has no real bony tenderness, normal range of motion of the hip without pain, and normal ambulation. Neurovascularly intact otherwise. X-ray of the lumbar spine and pelvis with left hip ordered and interpreted by me showing no fracture or dislocation. Given hydrocodone here for pain. Will write a prescription for lidocaine patch as well as muscle relaxer. I believe she is stable for discharge with outpatient follow-up. She was sent home with strict return precautions. Diagnostic Imaging Diagonstic Imaging: Xray (pelvis, left hip, lumbar spine) Comments [facility], [place] NAME: MARCUS PADILLA [facility] REC#: [id number] PT STATUS: REG ER : 1985 PHYSICIAN: CHERIE CERVANTES MD ADMIT DATE: 05/01/23/ER FS Signed Date of Exam:05/01/23 PELVIS WITH LEFT HIP 2-3 VIEW INDICATION: Pain after fall. FINDINGS: The bony pelvis is intact. Proximal femurs are intact. There is no fracture or dislocation. Soft tissues are unremarkable. IMPRESSION: No acute fracture or dislocation. Dictated by: Dictated on workstation # [id number] Dict: 05/01/231844 Trans: 05/01/231848 PJE [id number] Interpreted by: ARTURO DANGELO MD Electronically signed by: ARTURO DANGELO MD 05/01/231848 [facility], [place] NAME: MARCUS PADILLA [facility] REC#: [id number] PT STATUS: REG ER : 1985 PHYSICIAN: CHERIE CERVANTES MD ADMIT DATE: 05/01/23/ER FS Signed Date of Exam:05/01/23 LUMBAR SPINE 2 OR 3 VIEW INDICATION: Back pain after fall. FINDINGS: The alignment is normal. The vertebral body heights are well-maintained. There is no spondylolysis or spondylolisthesis. No fracture is identified. There are mild degenerative changes. IMPRESSION: Mild lumbar spondylosis, otherwise unremarkable. Dictated by: Dictated on workstation # [id number] Dict: 05/01/231844 Trans: 05/01/231848 [id number] Interpreted by: ARTURO DANGELO MD Electronically signed by: ARTURO DANGELO MD 05/01/231848 Departure Impression Primary Impression: Fall Qualified Codes: W19.XXXA - Unspecified fall, initial encounter Additional Impression: Low back pain Qualified Codes: M54.50 - Low back pain, unspecified Disposition: 01 HOME, SELF-CARE Condition: Stable Departure-Patient Inst. Decision time for Depature: 19:00 Referrals: ERIC CALDERON MD (PCP/Family) Primary Care Physician Patient Instructions: Low Back Pain ED Add. Discharge Instructions: Fortunately nothing is broken or dislocated. If you are able to tolerate it, you can take wtfj-itr-lzlvbsr ibuprofen or naproxen. He can also take Tylenol. A muscle relaxer as well as a lidocaine patch was sent to your pharmacy as well. Scripts Lidocaine (Lidocaine 5% Patch) 5 % Adh..patch 1 EACH TP Q12H PRN for Neuropathic pain MDD 2 for 7 Days, #14 PATCH 2 patches max for 12 hours, then 12 hours patch-free period. Prov: CHERIE CERVANTES MD 05/01/23 Cyclobenzaprine HCl (Cyclobenzaprine HCl) 10 Mg Tablet 10 MG PO Q8H PRN for SPASMS for 5 Days, #15 TAB 0 Refills Prov: CHERIE CERVANTES MD 05/01/23 CHERIE CERVANTES MD May 01, 2023 18:26
[2023-05-01] MEDS ORDERED: HYDROcodone/APAP 5 MG/325 MG (LORTAB) TAB PO ONE (18:30)
--- NOTE | 2023-05-01 18:47 | Diagnostic Imaging Report ---
INDICATION: Back pain after fall. FINDINGS: The alignment is normal. The vertebral body heights are well-maintained. There is no spondylolysis or spondylolisthesis. No fracture is identified. There are mild degenerative changes. IMPRESSION: Mild lumbar spondylosis, otherwise unremarkable. Dictated by: Dictated on workstation # [id number]
--- NOTE | 2023-05-01 18:49 | Diagnostic Imaging Report ---
INDICATION: Pain after fall. FINDINGS: The bony pelvis is intact. Proximal femurs are intact. There is no fracture or dislocation. Soft tissues are unremarkable. IMPRESSION: No acute fracture or dislocation. Dictated by: Dictated on workstation # [id number]
[2023-05-01] MEDS ORDERED: LIDO700A45 TP (18:58)
[2023-05-01] MEDS ORDERED: CYCLOBENZAPRINE 10 MG (FLEXERIL) TAB PO STA (18:58)
[2023-05-01] MEDS ORDERED: CYCL10TA25 PO (18:58)
== END 2023-05-01 19:05 | disposition home or self-care (01) ==
LOC: EDUNIT# 18:16 → ER FS 18:17
DX: M54.50 Low back pain, unspecified (principal); M25.552 Pain in left hip; F17.210 Nicotine dependence, cigarettes, uncomplicated; W01.0XXA Fall on same level from slipping, tripping and stumbling without subsequent striking against object, initial encounter
CPT/HCPCS: 72100; 73502; 99281

== ENCOUNTER 2023-05-25 11:31 | Emergency (ER) | payer BC ==
[~2023-05-25] VITALS: Ht 160 cm; Wt 86.2 kg
[~2023-05-25 11:31] MED LIST changes: +LIDO700A45 TP
--- NOTE | 2023-05-25 11:48 | ED Chest Pain ---
General Stated Complaint: CHEST PAIN Source: patient Exam Limitations: no limitations History of Present Illness Date Seen by Provider: May 25, 2023 Time Seen by Provider: 11:37 Initial Comments 37-year-old female presents to the emergency department today for chest pain. She has a known history of coronary artery disease with a stent placed in the proximal LAD in 2020. In February 2022 she had a cardiac cath which showed only mild vascular disease and a patent stent. She started to have pressure in her mid lower chest last night. This lasted a few hours and she actually went to bed with the pain. When she woke up this morning she was pain-free however around 1030 or 11 this afternoon it recurred. On arrival her pain is mild lower central in her chest. She has been short of breath for the last couple of days but denies any fevers or cough. No abdominal pain or changes in bowel or bladder habits. All other systems reviewed and negative except documented per HPI. Voice recognition software was used to help create this chart Allergies and Home Medications Allergies Coded Allergies: No Known Drug Allergies (Verified , 04/15/23) Patient Home Medication List Home Medication List Reviewed: Yes Aspirin (Children's Aspirin) 81 Mg Tab.chew, 81 MG PO DAILY Prescribed by: YEN SPIVEY on 01/31/21 1550 Benzocaine/Menthol (Dermoplast Pain Relieving [place]) 20 %-0.5 % Aerosol, 56 EA TP UD PRN for PAIN-MILD (1-4) Prescribed by: Cindi Oviedo on 04/19/231730 Cyclobenzaprine HCl (Cyclobenzaprine HCl) 10 Mg Tablet, 10 MG PO Q8H PRN for SPASMS Prescribed by: CHERIE CERVANTES on 05/01/23 1858 Docusate Sodium (Docusate Sodium) 100 Mg Capsule, 100 MG PO BID Prescribed by: Cindi Oviedo on 04/19/23 173 Hydrocodone/Acetaminophen (Hydrocodone-Acetamin 5-325 mg) 5 Mg-325 Mg Tablet, 1 EA PO Q4H PRN for PAIN-MODERATE (5-7) Prescribed by: Cindi Oviedo on 04/19/23 173 Ibuprofen (Ibu) 600 Mg Tablet, 600 MG PO Q6H Prescribed by: Cindi Oviedo on 04/19/23 173 Lidocaine (Lidocaine 5% Patch) 5 % Adh..patch, 1 EACH TP Q12H PRN for Neuropathic pain Prescribed by: CHERIE CERVANTES on 05/01/23 1858 Metoprolol Succinate (Metoprolol Succinate) 25 Mg Tab.er.24h, 25 MG PO DAILY Prescribed by: YEN SPIVEY on 01/31/21 1550 Review of Systems Review of Systems Constitutional: see HPI Past Dsxmohr-Whejip-Vdmsty Hx Patient Social History Tobacco Use?: Yes Use of E-Cig and/or Vaping dev: No Substance use?: No Alcohol Use?: No Immunizations Up To Date Tetanus Booster (TDap): Unknown PED Vaccines UTD: Yes First/Initial COVID19 Vaccinat: MAY 2021 Second COVID19 Vaccination Ilir: JUNE 2021 Third COVID19 Vaccination Date: MAY 2021 Seasonal Allergies Seasonal Allergies: Yes Past Medical History Surgery/Hospitalization HX: CAD, stent placement, cholecystectomy; x2, hysterectomy Surgeries: Yes Abdominal, Section, Coronary Stent, Gallbladder, Hysterectomy Respiratory: No Currently Using CPAP: No Currently Using BIPAP: No Cardiac: Yes (X1 CARDIAC STENT PLACED 2019) Coronary Artery Disease Neurological: Yes Headaches /Migraines 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 Disorders: No 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 Disorders: Menstrual 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: No Gastrointestinal: Yes Diverticulosis, Gall Bladder Disease Musculoskeletal: No Endocrine: No HEENT: No Loss of Vision: Denies Hearing Impairment: Denies Cancer: No Psychosocial: Yes Anxiety, Depression Integumentary: No Blood Disorders: No Adverse Reaction/Blood Tranf: No Family Medical History Arthritis 19 MOTHER GRANDMA-MATERAL Colon cancer GRANDP-MATERANL Completed stroke 19 FATHER Congenital disease 19 FATHER Congenital heart disease 19 FATHER Diabetes mellitus 19 FATHER GRANDMA-MATERAL Hypercholesterolemia Myocardial infarction 19 FATHER GRANDP-MATERANL Heart Disease, Cancer, Diabetes Physical Exam Vital Signs Vital Signs - First Documented 05/25/23 11:35 Temp 36.5 Pulse 111 Resp 18 B/P (MAP) 139/79 (99) O2 Delivery Room Air Capillary Refill : Height, Weight, BMI Height: 5'5.00" Weight: 196lbs. 0.0oz. 88.525859zc; 33.55 BMI Method:Stated General Appearance: No Apparent Distress, WD/WN HEENT: Normal ENT Inspection, Pharynx Normal Neck: Full Range of Motion, Normal Inspection, Non Tender, Supple Respiratory: Chest Non Tender, Lungs Clear, Normal Breath Sounds, No Accessory Muscle Use, No Respiratory Distress Cardiovascular: Regular Rate, Rhythm, No Murmur, Normal Peripheral Pulses Gastrointestinal: Normal Bowel Sounds, No Organomegaly, Non Tender, Soft Extremity: Normal Capillary Refill, Normal Inspection, Non Tender, No Calf Tenderness Neurologic/Psychiatric: Alert, Oriented x3, No Motor/Sensory Deficits Skin: Normal Color, Warm/Dry Progress/Results/Core Measures Results/Orders Lab Results Laboratory Tests Test 05/25/23 11:40 05/25/23 13:34 Range/Units White Blood Count 12.2 H 4.3-11.0 10^3/uL Red Blood Count 4.44 3.80-5.11 10^6/uL Hemoglobin 13.5 11.5-16.0 g/dL Hematocrit 40 35-52 % Mean Corpuscular Volume 91 80-99 fL Mean Corpuscular Hemoglobin 30 25-34 pg Mean Corpuscular Hemoglobin Concent 34 32-36 g/dL Red Cell Distribution Width 13.6 10.0-14.5 % Platelet Count 312 130-400 10^3/uL Mean Platelet Volume 10.5 9.0-12.2 fL Immature Granulocyte % (Auto) 0 % Neutrophils (%) (Auto) 67 42-75 % Lymphocytes (%) (Auto) 24 12-44 % Monocytes (%) (Auto) 4 0-12 % Eosinophils (%) (Auto) 4 0-10 % Basophils (%) (Auto) 1 0-10 % Neutrophils # (Auto) 8.2 H 1.8-7.8 10^3/uL Lymphocytes # (Auto) 2.9 1.0-4.0 10^3/uL Monocytes # (Auto) 0.5 0.0-1.0 10^3/uL Eosinophils # (Auto) 0.5 H 0.0-0.3 10^3/uL Basophils # (Auto) 0.1 0.0-0.1 10^3/uL Immature Granulocyte # (Auto) 0.0 0.0-0.1 10^3/uL D-Dimer 0.33 0.00-0.49 UG/ML Sodium Level 139 135-145 MMOL/L Potassium Level 3.8 3.6-5.0 MMOL/L Chloride Level 104 98-107 MMOL/L Carbon Dioxide Level 23 21-32 MMOL/L Anion Gap 12 5-14 MMOL/L Blood Urea Nitrogen 7 7-18 MG/DL Creatinine 0.59 L 0.60-1.30 MG/DL Estimat Glomerular Filtration Rate 118 BUN/Creatinine Ratio 12 Glucose Level 136 H 70-105 MG/DL Calcium Level 9.2 8.5-10.1 MG/DL Corrected Calcium 9.1 8.5-10.1 MG/DL Total Bilirubin 0.2 0.1-1.0 MG/DL Aspartate Amino Transf (AST/SGOT) 15 5-34 U/L Alanine Aminotransferase (ALT/SGPT) 19 0-55 U/L Alkaline Phosphatase 76 40-136 U/L Troponin I < 0.30 < 0.30 <0.30 NG/ML Total Protein 7.3 6.4-8.2 GM/DL Albumin 4.1 3.2-4.5 GM/DL Lipase 28 8-78 U/L My Orders Orders - CARLOZ COLBY DO Fibrin Degradation Products (05/25/23 11:50) Ekg Tracing (05/25/23 11:55) Chest Pa/Lat (2 View) (05/25/23 12:04) Cbc With Automated Diff (05/25/23 12:19) Comprehensive Metabolic Panel (05/25/23 12:19) Troponin I Fs (05/25/23 12:19) Lipase (05/25/23 12:19) Acetaminophen Tablet (Tylenol Tablet) (05/25/23 12:30) Troponin I Fs (05/25/23 13:30) Medications Given in ED Current Medications Medications Dose Ordered Sig/Marnie Route Start Time Stop Time Status Last Admin Dose Admin Acetaminophen 1,000 mg ONCE ONCE PO 05/25/23 12:30 05/25/23 12:31 DC 05/25/23 12:30 1,000 MG Vital Signs/I&O 05/25/23 11:35 Temp 36.5 Pulse 111 Resp 18 B/P (MAP) 139/79 (99) O2 Delivery Room Air Comment Sinus tachycardia with a rate of 116 bpm. Normal intervals. Normal axis. T wave inversions in lead III and aVF which are the same as comparison from February [address]. [address] segment changes. No ectopy. No STEMI. Departure Communication (Admissions) Initial differential diagnosis includes ACS, angina, musculoskeletal/chest wall pain, pneumonia, pneumothorax, pulmonary embolism anemia. EKG is unchanged from 2020 comparison with only some T wave inversions in leads III and aVF. No evidence for STEMI. Will get troponins to further evaluate for ACS. We will do CBC to make sure she is not anemic however she has not had any obvious bleeding sources. Is not really reproducible on exam making musculoskeletal and chest wall pain less likely. We will get a chest x-ray to evaluate for pneumonia or pneumothorax. We will get a D-dimer to screen for PE however I think it is unlikely given the central nature of her symptoms and lack of other risk factors. Patient has 2 negative sets of cardiac enzyme, nonischemic EKG that is unchanged from February of last year. She is pain-free at this time. Chest x-ray is negative for any pneumonia or pneumothorax. There is no evidence of emergency medical condition at this time. 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 Impression Primary Impression: Chest pain Qualified Codes: R07.9 - Chest pain, unspecified Disposition: HOME, SELF-CARE Condition: Stable Departure-Patient Inst. Referrals: SELFERIC MD (PCP/Family) Primary Care Physician Patient Instructions: Chest Pain (DC) Add. Discharge Instructions: You are seen in the emergency department today for chest pain. No emergent medical conditions identified for your symptoms today. The heart enzyme that I checked in your blood is negative x2 and your chest x-ray is normal. The electrical tracing of your heart is normal as well. Recommend you follow-up with your primary care doctor and your heart doctor in the next couple weeks. Turn to the emergency department for any severe concerns. CARLOZ COLBY DO May 25, 2023 11:48
--- NOTE | 2023-05-25 12:22 | Diagnostic Imaging Report ---
INDICATION: Chest pain. EXAMINATION: PA and lateral chest obtained at 12:11 p.m. FINDINGS: Heart and mediastinal silhouette are normal in appearance. The lungs are clear. There is no pneumothorax or pleural fluid. IMPRESSION: Negative chest. Dictated by: Dictated on workstation # [id number]
[2023-05-25 12:23] LABS: BASOPHILS # (AUTO) 0.1 10^3/uL (0.0-0.1); BASOPHILS % (AUTO) 1 % (0-10); EOSINOPHILS # (AUTO) 0.5 10^3/uL (0.0-0.3); EOSINOPHILS % (AUTO) 4 % (0-10); HEMATOCRIT 40 % (35-52); HEMOGLOBIN 13.5 g/dL (11.5-16.0); LYMPHOCYTES # (AUTO) 2.9 10^3/uL (1.0-4.0); LYMPHOCYTES % (AUTO) 24 % (12-44); MEAN CORPUSCULAR HEMOGLOBIN 30 pg (25-34); MEAN CORPUSCULAR HGB CONC 34 g/dL (32-36); MEAN CORPUSCULAR VOLUME 91 fL (80-99); MEAN PLATELET VOLUME 10.5 fL (9.0-12.2); MONOCYTES # (AUTO) 0.5 10^3/uL (0.0-1.0); MONOCYTES % (AUTO) 4 % (0-12); NEUTROPHILS # (AUTO) 8.2 10^3/uL (1.8-7.8); NEUTROPHILS % (AUTO) 67 % (42-75); PLATELET COUNT 312 10^3/uL (130-400); WHITE BLOOD COUNT 12.2 10^3/uL (4.3-11.0)
[2023-05-25] MEDS ORDERED: ACETAMINOPHEN 500 MG TAB (TYLENOL) PO ONE (12:30)
[2023-05-25 12:41] LABS: ALANINE AMINOTRANSFERASE 19 U/L (0-55); ALKALINE PHOSPHATASE 76 U/L (40-136); BILIRUBIN,TOTAL 0.2 MG/DL (0.1-1.0); BUN/CREATININE RATIO 12; CALCIUM 9.2 MG/DL (8.5-10.1); CARBON DIOXIDE 23 MMOL/L (21-32); CHLORIDE 104 MMOL/L (98-107); CREATININE SERUM 0.59 MG/DL (0.60-1.30); GFR ESTIMATED 118; GLUCOSE 136 MG/DL (70-105); POTASSIUM 3.8 MMOL/L (3.6-5.0); SODIUM 139 MMOL/L (135-145); TOTAL PROTEIN 7.3 GM/DL (6.4-8.2)
[2023-05-25 12:42] LABS: ALBUMIN 4.1 GM/DL (3.2-4.5); LIPASE 28 U/L (8-78)
[2023-05-25 14:22] VITALS: BP 131/91
== END 2023-05-25 14:22 | disposition home or self-care (01) ==
LOC: EDUNIT# 11:31 → ER FS 11:32
DX: R07.89 Other chest pain (principal); R00.0 Tachycardia, unspecified; Z98.61 Coronary angioplasty status
CPT/HCPCS: 36415; 71046; 80053; 83690; 84484; 85025; 85379; 93005

== ENCOUNTER 2023-06-18 18:55 | Emergency (ER) | payer BC ==
[2023-06-18] MEDS ORDERED: KETOROLAC INJ 15 MG/ML VIAL IVP STA (19:03)
[2023-06-18 19:11] LABS: BASOPHILS # (AUTO) 0.1 10^3/uL (0.0-0.1); BASOPHILS % (AUTO) 1 % (0-10); EOSINOPHILS # (AUTO) 0.4 10^3/uL (0.0-0.3); EOSINOPHILS % (AUTO) 4 % (0-10); HEMATOCRIT 42 % (35-52); HEMOGLOBIN 13.2 g/dL (11.5-16.0); LYMPHOCYTES # (AUTO) 4.5 10^3/uL (1.0-4.0); LYMPHOCYTES % (AUTO) 41 % (12-44); MEAN CORPUSCULAR HEMOGLOBIN 30 pg (25-34); MEAN CORPUSCULAR HGB CONC 32 g/dL (32-36); MEAN CORPUSCULAR VOLUME 94 fL (80-99); MEAN PLATELET VOLUME 10.8 fL (9.0-12.2); MONOCYTES # (AUTO) 0.8 10^3/uL (0.0-1.0); MONOCYTES % (AUTO) 7 % (0-12); NEUTROPHILS # (AUTO) 5.2 10^3/uL (1.8-7.8); NEUTROPHILS % (AUTO) 47 % (42-75); PLATELET COUNT 355 10^3/uL (130-400)
--- NOTE | 2023-06-18 19:21 | Diagnostic Imaging Report ---
EXAM: Elbow, 3 view left. INDICATION: Pain and swelling of left elbow. COMPARISON: None. FINDINGS: No fracture or malalignment. Soft tissue prominence about the olecranon. No radiopaque foreign body. IMPRESSION: 1. No acute osseous finding in the left elbow. 2. Soft tissue swelling about the olecranon may be related to bursitis. Dictated by: Dictated on workstation # [id number]
[2023-06-18 19:31] LABS: ALBUMIN 4.2 GM/DL (3.2-4.5); BILIRUBIN,TOTAL 0.2 MG/DL (0.1-1.0); CALCIUM 9.6 MG/DL (8.5-10.1); CREATININE SERUM 0.69 MG/DL (0.60-1.30); POTASSIUM 3.7 MMOL/L (3.6-5.0); TOTAL PROTEIN 7.1 GM/DL (6.4-8.2)
--- NOTE | 2023-06-18 19:33 | ED Upper Extremity ---
General Chief Complaint: Upper Extremity Stated Complaint: LT ELBOW PAIN Nursing Triage Note: Pt complaining of left elbow pain that started a few days ago, no injury noted. Source: patient History of Present Illness Date Seen by Provider: Jun 18, 2023 Time Seen by Provider: 18:57 Initial Comments 37-year-old female presenting with complaints of left elbow pain and swelling. This started a few days ago. She denies any direct trauma but states that she does use repetitive movements and stress on her elbow and hands at work. She has not had symptoms like this before. She has had some subjective low-grade fevers. She was concerned that there was infection. After getting off work today she had taken a nap and then went to urgent care. Urgent care had refused to see her saying that she likely had an infection in her elbow and that she needed to come to the emergency department. She has no increased redness to the area but states at times there is been some increased warmth. She has increased pain when she tries to fully extend her elbow. Onset: other (3 to 4 days) Pain/Injury Location: left elbow Method of Injury: unknown Modifying Factors: Worse With Movement Allergies and Home Medications Allergies Coded Allergies: No Known Drug Allergies (Verified , 04/15/23) Patient Home Medication List Home Medication List Reviewed: Yes Aspirin (Children's Aspirin) 81 Mg Tab.chew, 81 MG PO DAILY Prescribed by: YEN SPIVEY on 01/31/21 155 Benzocaine/Menthol (Dermoplast Pain Relieving [place]) 20 %-0.5 % Aerosol, 56 EA TP UD PRN for PAIN-MILD (1-4) Prescribed by: Cindi Oviedo on 04/19/23 173 Cyclobenzaprine HCl (Cyclobenzaprine HCl) 10 Mg Tablet, 10 MG PO Q8H PRN for SPASMS Prescribed by: CHERIE CERVANTES on 05/01/23 1858 Docusate Sodium (Docusate Sodium) 100 Mg Capsule, 100 MG PO BID Prescribed by: Cindi Oviedo on 04/19/23 173 Hydrocodone/Acetaminophen (Hydrocodone-Acetamin 5-325 mg) 5 Mg-325 Mg Tablet, 1 EA PO Q4H PRN for PAIN-MODERATE (5-7) Prescribed by: Cindi Oviedo on 04/19/23 173 Ibuprofen (Ibu) 600 Mg Tablet, 600 MG PO Q6H Prescribed by: Cindi Oviedo on 04/19/23 1731 Lidocaine (Lidocaine 5% Patch) 5 % Adh..patch, 1 EACH TP Q12H PRN for Neuropathic pain Prescribed by: CHERIE CERVANTES on 05/01/23 1858 Metoprolol Succinate (Metoprolol Succinate) 25 Mg Tab.er.24h, 25 MG PO DAILY Prescribed by: YEN SPIVEY on 01/31/21 1550 Naproxen (EC-Naproxen) 500 Mg Tablet.dr, 500 MG PO BID PRN for elbow pain Prescribed by: EMILIE STOREY on 06/18/23 1950 Review of Systems Constitutional: chills, fever (Subjective) EENTM: no symptoms reported Respiratory: no symptoms reported Cardiovascular: no symptoms reported Gastrointestinal: no symptoms reported 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: no symptoms reported Musculoskeletal: see HPI Skin: see HPI Psychiatric/Neurological: Denies Numbness, Denies Paresthesia Past [place]-Hvgbfg Hx Patient Social History Tobacco Use?: No Use of E-Cig and/or Vaping dev: No Substance use?: No Alcohol Use?: No Pt feels they are or have been: No Immunizations Up To Date Tetanus Booster (TDap): Unknown PED Vaccines UTD: Yes First/Initial COVID19 Vaccinat: MAY 2021 Second COVID19 Vaccination Ilir: JUNE 2021 Third COVID19 Vaccination Date: MAY 2021 Seasonal Allergies Seasonal Allergies: Yes Past Medical History Surgery/Hospitalization HX: CAD, stent placement, cholecystectomy; x2, hysterectomy Surgeries: Yes Abdominal, Section, Coronary Stent, Gallbladder, Hysterectomy Respiratory: No Currently Using CPAP: No Currently Using BIPAP: No Cardiac: Yes (X1 CARDIAC STENT PLACED 2019) Coronary Artery Disease Neurological: Yes Headaches /Migraines 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 Disorders: No 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: No Gastrointestinal: Yes Diverticulosis, Gall Bladder Disease Musculoskeletal: No Endocrine: No HEENT: No Loss of Vision: Denies Hearing Impairment: Denies Cancer: No Psychosocial: Yes Anxiety, Depression Integumentary: No Blood Disorders: No Adverse Reaction/Blood Tranf: No Family Medical History Arthritis 19 MOTHER GRANDMA-MATERAL Colon cancer GRANDP-MATERANL Completed stroke 19 FATHER Congenital disease 19 FATHER Congenital heart disease 19 FATHER Diabetes mellitus 19 FATHER GRANDMA-MATERAL Hypercholesterolemia Myocardial infarction 19 FATHER GRANDP-MATERANL Heart Disease, Cancer, Diabetes Physical Exam Vital Signs Vital Signs - First Documented 06/18/23 18:58 Temp 37.0 Pulse 108 Resp 18 B/P (MAP) 143/94 (110) Pulse Ox 97 O2 Delivery Room Air Capillary Refill : Less Than 3 Seconds Height, Weight, BMI Height: 5'5.00" Weight: 196lbs. 0.0oz. 88.832985gx; 33.00 BMI Method:Stated General Appearance: WD/WN, no apparent distress HEENT: PERRL/EOMI, pharynx normal Cardiovascular: normal peripheral pulses, regular rate, rhythm Respiratory: chest non-tender, lungs clear, normal breath sounds, no respirator y distress, no accessory muscle use Elbow/Forearm: Left, deformity (Swelling over the olecranon process and bursa), limited ROM (Decreased range of motion in extension of the left elbow due to pain and swelling), pain (Tenderness to palpation of the olecranon process on the left arm.), soft tissue tenderness, swelling Neurologic/Tendon: normal sensation, normal motor functions, normal tendon functions 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, alert, oriented x 3 Skin: normal color, warm/dry Progress/Results/Core Measures Results/Orders Lab Results Laboratory Tests Test 06/18/23 19:05 Range/Units White Blood Count 11.0 4.3-11.0 10^3/uL Red Blood Count 4.42 3.80-5.11 10^6/uL Hemoglobin 13.2 11.5-16.0 g/dL Hematocrit 42 35-52 % Mean Corpuscular Volume 94 80-99 fL Mean Corpuscular Hemoglobin 30 25-34 pg Mean Corpuscular Hemoglobin Concent 32 32-36 g/dL Red Cell Distribution Width 14.4 10.0-14.5 % Platelet Count 355 130-400 10^3/uL Mean Platelet Volume 10.8 9.0-12.2 fL Immature Granulocyte % (Auto) 0 % Neutrophils (%) (Auto) 47 42-75 % Lymphocytes (%) (Auto) 41 12-44 % Monocytes (%) (Auto) 7 0-12 % Eosinophils (%) (Auto) 4 0-10 % Basophils (%) (Auto) 1 0-10 % Neutrophils # (Auto) 5.2 1.8-7.8 10^3/uL Lymphocytes # (Auto) 4.5 H 1.0-4.0 10^3/uL Monocytes # (Auto) 0.8 0.0-1.0 10^3/uL Eosinophils # (Auto) 0.4 H 0.0-0.3 10^3/uL Basophils # (Auto) 0.1 0.0-0.1 10^3/uL Immature Granulocyte # (Auto) 0.0 0.0-0.1 10^3/uL Sodium Level 142 135-145 MMOL/L Potassium Level 3.7 3.6-5.0 MMOL/L Chloride Level 106 98-107 MMOL/L Carbon Dioxide Level 23 21-32 MMOL/L Anion Gap 13 5-14 MMOL/L Blood Urea Nitrogen 11 7-18 MG/DL Creatinine 0.69 0.60-1.30 MG/DL Estimat Glomerular Filtration Rate 114 BUN/Creatinine Ratio 16 Glucose Level 110 H 70-105 MG/DL Lactic Acid Level 0.61 0.50-2.00 MMOL/L Calcium Level 9.6 8.5-10.1 MG/DL Corrected Calcium 9.4 8.5-10.1 MG/DL Total Bilirubin 0.2 0.1-1.0 MG/DL Aspartate Amino Transf (AST/SGOT) 16 5-34 U/L Alanine Aminotransferase (ALT/SGPT) 19 0-55 U/L Alkaline Phosphatase 73 40-136 U/L C-Reactive Protein 0.39 <0.50 MG/DL Total Protein 7.1 6.4-8.2 GM/DL Albumin 4.2 3.2-4.5 GM/DL My Orders Orders - EMILIE STOREY MD Cbc With Automated Diff (06/18/23 19:03) Comprehensive Metabolic Panel (06/18/23 19:03) Blood Culture (06/18/23 19:03) Ed Iv/Invasive Line Start (06/18/23 19:03) Crp Fs (06/18/23 19:03) Lactic Acid Analyzer (06/18/23 19:03) Elbow 3 View Left (06/18/23 19:03) Ketorolac Injection (Ketorolac Injection (06/18/23 19:03) Vital Signs/I&O 06/18/23 06/18/23 18:58 20:07 Temp 37.0 37.0 Pulse 108 108 Resp 18 18 B/P (MAP) 143/94 (110) 143/94 Pulse Ox 97 97 O2 Delivery Room Air Room Air Blood Pressure Mean: 110 Progress Progress Note #1: Progress Note Potential diagnosis of olecranon bursitis, infection, sepsis, overuse injury, joint effusion. Establish peripheral IV access and send labs for complete blood count, comprehensive metabolic profile, CRP, lactic acid, blood cultures and x-rays of the left elbow to look for acute bony abnormality. Progress Note #2: Progress Note Elbow x-rays did not demonstrate any acute bony abnormality but she does have the soft tissue swelling over the olecranon area consistent with an olecranon bursitis. Her blood work showed white blood cell count at the upper limit of normal at 11. She was not anemic with a hemoglobin of 13.2. Her comprehensive metabolic profile did not show any acute electrolyte abnormalities. She had no elevation of her lactic acid to indicate sepsis. Reassured patient and applied a Juan wrap for compression and support. Given information for primary care clinic as well as Suhas Barillas with orthopedics to follow-up. She may require drainage of the fluid. If her symptoms are worsening return or follow-up with the clinic for additional evaluation. Given a note for work about limited use of the left elbow and to help try to take pressure off of the elbow. Diagnostic Imaging Diagonstic Imaging: Xray Plain Films/CT/US/NM/MRI: elbow Comments NAME: MARCUS PADILLA MED REC#: [id number] PT STATUS: REG ER : 1985 PHYSICIAN: EMILIE STOREY MD ADMIT DATE: 06/18/23/ER FS Draft Date of Exam:06/18/23 ELBOW 3 VIEW LEFT EXAM: Elbow, 3 view left. INDICATION: Pain and swelling of left elbow. COMPARISON: None. FINDINGS: No fracture or malalignment. Soft tissue prominence about the olecranon. No radiopaque foreign body. IMPRESSION: 1. No acute osseous finding in the left elbow. 2. Soft tissue swelling about the olecranon may be related to bursitis. Dictated on workstation # [id number] Dict: 06/18/231917 Trans: 06/18/231920 PJE [id number] Interpreted by: GAVIN PAINTER MD Electronically signed by: Reviewed: Reviewed by Me Departure Impression Primary Impression: Olecranon bursitis of left elbow Disposition: HOME, SELF-CARE Condition: Stable Departure-Patient Inst. Decision time for Depature: 19:48 Referrals: HARJEET BARILLAS MAXWELL MD (PCP/Family) Primary Care Physician Patient Instructions: Overuse Injuries (DC), Bursitis ED, Olecranon Bursitis Exercises, Olecranon Bursitis (DC) Add. Discharge Instructions: Take the anti-inflammatories to help with pain and inflammation. Use the elbow pad to help protect the elbow. Follow-up with the clinic as orthopedics may need to try and drain fluid off of the elbow if it is not resolving. All discharge instructions reviewed with patient and/or family. Voiced understanding. Scripts Naproxen (EC-Naproxen) 500 Mg Tablet.dr 500 MG PO BID PRN for elbow pain for 10 Days, #20 TAB 0 Refills Prov: EMILIE STOREY MD 06/18/23 Work/School Note: Work Release Form Date Seen in the Emergency Department: Jun 18, 2023 Return to Work: Jun 19, 2023 Restrictions: Need Release from Doctor Other Restrictions Listed Below: Wear elbow protection and try to keep from applying pressure to elbow EMILIE STOREY MD Jun 18, 2023 19:33
[2023-06-18] MEDS ORDERED: NAPR-1211 PO (19:50)
[2023-06-18 20:07] VITALS: BP 143/94
== END 2023-06-18 20:07 | disposition home or self-care (01) ==
LOC: EDUNIT# 18:55 → ER FS 18:56
DX: M70.22 Olecranon bursitis, left elbow (principal); Z28.310 Unvaccinated for COVID-19
CPT/HCPCS: 36415; 73080; 80053; 83605; 85025; 86141; 87040

== ENCOUNTER 2023-08-28 18:25 | Emergency (ER) | payer BC ==
[~2023-08-28] VITALS: Ht 160 cm; Wt 86.3 kg
[~2023-08-28 18:25] MED LIST changes: +NAPR-1211 PO
--- NOTE | 2023-08-28 18:42 | ED Abdominal Pain ---
General Chief Complaint: Abdominal/GI Problems Stated Complaint: LLQ PAIN History of Present Illness Date Seen by Provider: Aug 28, 2023 Time Seen by Provider: 18:37 Initial Comments 37 yr F with PMH of CAD with stents placed 3 years ago/ HTN/ hysterectomy in April 2023/ Diverticulitis, is here with c/o LLQ abdominal pain which began last night. Pain is constant pt rates it a 7/10. Pt is able to eat and drink without any issues. Pt had a cheeseburger and fries at 3 pm today because she was hungry. Denies nausea, vomiting, fever and chills, chest pain, palpitations, SOB, diarrhea or constipation. Pt has normal daily bowel movements. Pt just completed a course of Augmentin yesterday for a UTI. Allergies and Home Medications Allergies Coded Allergies: No Known Drug Allergies (Verified , 04/15/23) Patient Home Medication List Home Medication List Reviewed: Yes Aspirin (Children's Aspirin) 81 Mg Tab.chew, 81 MG PO DAILY Prescribed by: YEN SPIVEY on 01/31/21 1550 Benzocaine/Menthol (Dermoplast Pain Relieving Carrizo) 20 %-0.5 % Aerosol, 56 EA TP UD PRN for PAIN-MILD (1-4) Prescribed by: Cindi Oviedo on 04/19/23 173 Cyclobenzaprine HCl (Cyclobenzaprine HCl) 10 Mg Tablet, 10 MG PO Q8H PRN for SPASMS Prescribed by: CHERIE CERVANTES on 05/01/231857 Docusate Sodium (Docusate Sodium) 100 Mg Capsule, 100 MG PO BID Prescribed by: Cindi Oviedo on 04/19/23 173 Hydrocodone/Acetaminophen (Hydrocodone-Acetamin 5-325 mg) 5 Mg-325 Mg Tablet, 1 EA PO Q4H PRN for PAIN-MODERATE (5-7) Prescribed by: Cindi Oviedo on 04/19/23 173 Ibuprofen (Ibu) 600 Mg Tablet, 600 MG PO Q6H Prescribed by: Cindi Oviedo on 04/19/23 173 Lidocaine (Lidocaine 5% Patch) 5 % Adh..patch, 1 EACH TP Q12H PRN for Neuropathic pain Prescribed by: CHERIE CERVANTES on 05/01/23 185 Metoprolol Succinate (Metoprolol Succinate) 25 Mg Tab.er.24h, 25 MG PO DAILY Prescribed by: YEN SPIVEY on 01/31/21 1550 Naproxen (EC-Naproxen) 500 Mg Tablet.dr, 500 MG PO BID PRN for elbow pain Prescribed by: EMILIE STOREY on 06/18/23 1950 Review of Systems Review of Systems Constitutional: no symptoms reported EENTM: No Symptoms Reported Respiratory: No Symptoms Reported Cardiovascular: No Symptoms Reported Gastrointestinal: Abdominal Pain 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: No Symptoms Reported Past Anbeupk-Dhcugn-Dzpyvu Hx Patient Social History Tobacco Use?: Yes Tobacco type used: Cigarettes Smoking Status: Current Everyday Smoker Substance use?: No Alcohol Use?: No Pt feels they are or have been: No Immunizations Up To Date Tetanus Booster (TDap): Unknown PED Vaccines UTD: Yes First/Initial COVID19 Vaccinat: MAY 2021 Second COVID19 Vaccination Ilir: JUNE 2021 Third COVID19 Vaccination Date: MAY 2021 Seasonal Allergies Seasonal Allergies: Yes Past Medical History Surgery/Hospitalization HX: Hysterectomy, HTN, Cardiac Stent Surgeries: Yes Abdominal, Section, Coronary Stent, Gallbladder, Hysterectomy Respiratory: No Currently Using CPAP: No Currently Using BIPAP: No Cardiac: Yes (X1 CARDIAC STENT PLACED 2019) Coronary Artery Disease Neurological: Yes Headaches /Migraines 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 Disorders: No 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 Disorders: Menstrual Problems [employer]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: No Gastrointestinal: Yes Diverticulosis, Gall Bladder Disease Musculoskeletal: No Endocrine: No HEENT: No Loss of Vision: Denies Hearing Impairment: Denies Cancer: No Psychosocial: Yes Anxiety, Depression Integumentary: No Blood Disorders: No Adverse Reaction/Blood Tranf: No Family Medical History Arthritis 19 MOTHER GRANDMA-MATERAL Colon cancer GRANDP-MATERANL Completed stroke 19 FATHER Congenital disease 19 FATHER Congenital heart disease 19 FATHER Diabetes mellitus 19 FATHER GRANDMA-MATERAL Hypercholesterolemia Myocardial infarction 19 FATHER GRANDP-MATERANL Heart Disease, Cancer, Diabetes Physical Exam Vital Signs Vital Signs - First Documented 08/28/23 18:38 Temp 36.8 Pulse 99 Resp 18 B/P (MAP) 116/75 (89) Pulse Ox 99 O2 Delivery Room Air Capillary Refill : Height/Weight/BMI Height: 5'5.00" Weight: 196lbs. 0.0oz. 88.558368bn; 33.00 BMI Method:Stated General Appearance: WD/WN, no apparent distress HEENT: PERRL/EOMI Neck: full range of motion Respiratory: lungs clear, normal breath sounds Cardiovascular: regular rate, rhythm Gastrointestinal: normal bowel sounds, soft, no organomegaly, tenderness (LLQ tenderness) Extremities: normal range of motion Back: normal inspection, no CVA tenderness Neurologic/Psychiatric: alert, normal mood/affect, oriented x 3 Skin: normal color Progress/Results/Core Measures Results/Orders Lab Results Laboratory Tests Test 08/28/23 18:30 08/28/23 18:52 08/28/23 18:58 Range/Units Urine Color YELLOW Urine Clarity TURBID Urine pH 6.5 5-9 Urine Specific [place] 1.025 H 1.016-1.022 Urine Protein NEGATIVE NEGATIVE Urine Glucose (UA) NEGATIVE NEGATIVE Urine Ketones NEGATIVE NEGATIVE Urine Nitrite NEGATIVE NEGATIVE Urine Bilirubin NEGATIVE NEGATIVE Urine Urobilinogen 1.0 < = 1.0 MG/DL Urine Leukocyte Esterase NEGATIVE NEGATIVE Urine RBC (Auto) NEGATIVE NEGATIVE Urine RBC 5-10 H /HPF Urine WBC 10-25 H /HPF Urine Squamous Epithelial Cells TNTC H /HPF Urine Crystals NONE /LPF Urine Bacteria LARGE H /HPF Urine Casts NONE /LPF Urine Mucus LARGE H /LPF Urine Culture Indicated NO Urine Opiates Screen NEGATIVE NEGATIVE Urine Oxycodone Screen NEGATIVE NEGATIVE Urine Methadone Screen NEGATIVE NEGATIVE Urine Propoxyphene Screen NEGATIVE NEGATIVE Urine Barbiturates Screen NEGATIVE NEGATIVE Ur Tricyclic Antidepressants Screen NEGATIVE NEGATIVE Urine Phencyclidine Screen NEGATIVE NEGATIVE Urine Amphetamines Screen NEGATIVE NEGATIVE Urine Methamphetamines Screen NEGATIVE NEGATIVE Urine Benzodiazepines Screen NEGATIVE NEGATIVE Urine Cocaine Screen NEGATIVE NEGATIVE Urine Cannabinoids Screen NEGATIVE NEGATIVE Influenza Type A (RT-PCR) Not Detected Not Detecte Influenza Type B (RT-PCR) Not Detected Not Detecte SARS-CoV-2 RNA (RT-PCR) Not Detected Not Detecte White Blood Count 12.3 H 4.3-11.0 10^3/uL Red Blood Count 4.19 3.80-5.11 10^6/uL Hemoglobin 12.9 11.5-16.0 g/dL Hematocrit 39 35-52 % Mean Corpuscular Volume 94 80-99 fL Mean Corpuscular Hemoglobin 31 25-34 pg Mean Corpuscular Hemoglobin Concent 33 32-36 g/dL Red Cell Distribution Width 14.3 10.0-14.5 % Platelet Count 310 130-400 10^3/uL Mean Platelet Volume 10.4 9.0-12.2 fL Immature Granulocyte % (Auto) 0 % Neutrophils (%) (Auto) 60 42-75 % Lymphocytes (%) (Auto) 27 12-44 % Monocytes (%) (Auto) 7 0-12 % Eosinophils (%) (Auto) 4 0-10 % Basophils (%) (Auto) 1 0-10 % Neutrophils # (Auto) 7.4 1.8-7.8 10^3/uL Lymphocytes # (Auto) 3.3 1.0-4.0 10^3/uL Monocytes # (Auto) 0.9 0.0-1.0 10^3/uL Eosinophils # (Auto) 0.5 H 0.0-0.3 10^3/uL Basophils # (Auto) 0.1 0.0-0.1 10^3/uL Immature Granulocyte # (Auto) 0.0 0.0-0.1 10^3/uL Sodium Level 138 135-145 MMOL/L Potassium Level 3.6 3.6-5.0 MMOL/L Chloride Level 102 98-107 MMOL/L Carbon Dioxide Level 24 21-32 MMOL/L Anion Gap 12 5-14 MMOL/L Blood Urea Nitrogen 9 7-18 MG/DL Creatinine 0.71 0.60-1.30 MG/DL Estimat Glomerular Filtration Rate 112 BUN/Creatinine Ratio 13 Glucose Level 110 H 70-105 MG/DL Calcium Level 9.2 8.5-10.1 MG/DL Corrected Calcium 9.4 8.5-10.1 MG/DL Total Bilirubin 0.3 0.1-1.0 MG/DL Aspartate Amino Transf (AST/SGOT) 13 5-34 U/L Alanine Aminotransferase (ALT/SGPT) 14 0-55 U/L Alkaline Phosphatase 78 40-136 U/L Troponin I < 0.30 <0.30 NG/ML Total Protein 6.9 6.4-8.2 GM/DL Albumin 3.8 3.2-4.5 GM/DL Lipase 24 8-78 U/L My Orders Orders - PINO ARMSTRONG MD Ct Abdomen/Pelvis W (08/28/23 18:47) Cbc And Automated Diff (08/28/23 18:47) Comprehensive Metabolic Panel (08/28/23 18:47) Drug Screen Stat (Urine) (08/28/23 18:47) Lipase (08/28/23 18:47) Ua Culture If Indicated (08/28/23 18:47) Influenza A And B By Pcr (08/28/23 18:47) Troponin I Fs (08/28/23 18:47) Covid 19 Inhouse Test (08/28/23 18:47) Ketorolac Injection (Ketorolac Injection (08/28/23 19:00) Ed Iv/Invasive Line Start (08/28/23 19:02) Iohexol Injection (Omnipaque 350 Mg/Ml 1 (08/28/23 19:15) Received Contrast (Hold Metformin- Contr (08/28/23 19:15) Ns (Ivpb) 100 Ml (Sodium Chloride 0.9% 1 (08/28/23 19:15) Medications Given in ED Current Medications Medications Dose Ordered Sig/Marnie Route Start Time Stop Time Status Last Admin Dose Admin Iohexol 100 ml ONCE ONCE IV 08/28/23 19:15 08/28/23 19:16 DC 08/28/23 19:14 80 ML Ketorolac Tromethamine 15 mg ONCE ONCE IVP 08/28/23 19:00 08/28/23 19:01 DC 08/28/23 19:06 15 MG Sodium Chloride 100 ml ONCE ONCE IV 08/28/23 19:15 08/28/23 19:16 DC 08/28/23 19:14 100 ML Vital Signs/I&O 08/28/23 18:38 Temp 36.8 Pulse 99 Resp 18 B/P (MAP) 116/75 (89) Pulse Ox 99 O2 Delivery Room Air Progress Progress Note : Progress Note 1. DIVERTICULOSIS WITH DIVERTICULITIS OF SIGMOID COLON: - CT ABD:Colonic diverticulosis with suspected sigmoid diverticulitis. There is no diverticular abscess or perforation. - CBC/ CMP: unremarkable - Lipase negative - Toradol injection given in ER - Troponin undetectable - SInce diverticulitis is uncomplicated and mild, will not require antibiotics as per newer guidelines. Advised liquid diet for 24 hours and advance to soft diet as symptoms improve.Advised Tylenol for pain. - Follow up with Surgery clinic once symptoms resolve, for scheduling a colonoscopy. -The patient was seen in the ED, and treated appropriately to presentation at a specific point in time. Patient is informed that there is a possibility that disease and illness can evolve and change in acuity rapidly or slowly after patient is discharged from the ER. Precautionary advice given to the patient for immediate return to ER if symptoms worsen or do not resolve, and to seek emergency care sooner rather than later. Pt also advised on the importance of PCP follow up and compliance with management and follow up plan with PCP and/or specialist, as this is part of the management plan. Pt verbally expressed understanding. Diagnostic Imaging Diagonstic Imaging: CT Plain Films/CT/US/NM/MRI: abdomen Comments [facility], [place] NAME: MARCUS PADILLA [facility] REC#: [id number] PT STATUS: REG ER : 1985 PHYSICIAN: PINO ARMSTRONG MD ADMIT DATE: 08/28/23/ER FS Signed Date of Exam:08/28/23 CT ABDOMEN/PELVIS W PROCEDURE: CT abdomen and pelvis with contrast. TECHNIQUE: Multiple contiguous axial images were obtained through the abdomen and pelvis after administration of intravenous contrast. Auto Exposure Controls were utilized during the CT exam to meet ALARA standards for radiation dose reduction. All CT scans use one or more of the following dose optimizing techniques: automated exposure control, MA and/or KvP adjustment based on patient size and exam type or iterative reconstruction. INDICATION: Left lower quadrant pain Lung bases are clear. Liver appears normal. Gallbladder surgically absent. The pancreas appears normal. Spleen is not enlarged. GE junction is unremarkable. Adrenals are normal. Kidneys appear normal. There is large amount of food residue in the stomach. Small bowel is not dilated. The appendix is normal. There is diverticulosis of the colon with some mural thickening in the sigmoid colon could be due to diverticulitis. IMPRESSION: Colonic diverticulosis with suspected sigmoid diverticulitis. There is no diverticular abscess or perforation. Dictated by: Dictated on workstation # [id number] Dict: 08/28/231928 Trans: 08/28/231932 [facility] [id number] Interpreted by: PER COSTA MD Electronically signed by: PER COSTA MD 08/28/231932 Departure Impression Primary Impression: Diverticulitis large intestine Additional Impression: Diverticulosis Disposition: 01 HOME, SELF-CARE Condition: Stable Departure-Patient Inst. Referrals: AMARIS MARIA MAXWELL MD (PCP/Family) Primary Care Physician Patient Instructions: Diverticulitis, Diverticulosis Add. Discharge Instructions: - SInce diverticulitis is uncomplicated and mild, will not require antibiotics as per newer guidelines. Advised liquid diet for 24 hours and advance to soft diet as symptoms improve.Advised Tylenol for pain. - Follow up with Surgery clinic once symptoms resolve, for scheduling a colonoscopy, Dr. Maria's office. All discharge instructions reviewed with patient and/or family. Voiced understanding. PINO ARMSTRONG MD Aug 28, 2023 18:42
[2023-08-28 18:52] LABS: AMPHETAMINE SCREEN, URINE NEGATIVE (NEGATIVE); BARBITURATE SCREEN URINE NEGATIVE (NEGATIVE); BILIRUBIN,URINE NEGATIVE (NEGATIVE); CANNABINOID SCREEN, URINE NEGATIVE (NEGATIVE); COCAINE SCREEN URINE NEGATIVE (NEGATIVE); COLOR,URINE YELLOW; GLUCOSE, URINE (UA) NEGATIVE (NEGATIVE); KETONES,URINE NEGATIVE (NEGATIVE); LEUKOCYTE ESTERASE ,URINE NEGATIVE (NEGATIVE); METHADONE STAT NEGATIVE (NEGATIVE); NITRITE,URINE NEGATIVE (NEGATIVE); OPIATE SCREEN URINE NEGATIVE (NEGATIVE); OXYCODONE STAT NEGATIVE (NEGATIVE); PH,URINE 6.5 (5-9); PROPOXYPHENE STAT NEGATIVE (NEGATIVE); PROTEIN,URINE NEGATIVE (NEGATIVE); TRICYCLIC ANTIDEPRESSANTS SCRE NEGATIVE (NEGATIVE)
[2023-08-28 18:53] LABS: CLARITY,URINE TURBID
[2023-08-28 18:54] LABS: BACTERIA,URINE LARGE /HPF; SQUAMOUS EPITHELIAL CELL,UR TNTC /HPF
[2023-08-28] MEDS ORDERED: KETOROLAC INJ 15 MG/ML VIAL IVP ONE (19:00)
[2023-08-28 19:02] LABS: BASOPHILS # (AUTO) 0.1 10^3/uL (0.0-0.1); BASOPHILS % (AUTO) 1 % (0-10); EOSINOPHILS # (AUTO) 0.5 10^3/uL (0.0-0.3); EOSINOPHILS % (AUTO) 4 % (0-10); HEMATOCRIT 39 % (35-52); HEMOGLOBIN 12.9 g/dL (11.5-16.0); LYMPHOCYTES # (AUTO) 3.3 10^3/uL (1.0-4.0); LYMPHOCYTES % (AUTO) 27 % (12-44); MEAN CORPUSCULAR HEMOGLOBIN 31 pg (25-34); MEAN CORPUSCULAR HGB CONC 33 g/dL (32-36); MEAN CORPUSCULAR VOLUME 94 fL (80-99); MEAN PLATELET VOLUME 10.4 fL (9.0-12.2); MONOCYTES # (AUTO) 0.9 10^3/uL (0.0-1.0); MONOCYTES % (AUTO) 7 % (0-12); NEUTROPHILS # (AUTO) 7.4 10^3/uL (1.8-7.8); NEUTROPHILS % (AUTO) 60 % (42-75); PLATELET COUNT 310 10^3/uL (130-400); WHITE BLOOD COUNT 12.3 10^3/uL (4.3-11.0)
[2023-08-28] MEDS ORDERED: HOLD METFORMIN - RECEIVED CONTRAST 20 ML VIAL IV SCH (19:15)
[2023-08-28] MEDS ORDERED: NS 100 ML (IVPB) BAG IV ONE (19:15)
[2023-08-28] MEDS ORDERED: IOHEXOL 350 MG/ML 100 ML (OMNIPAQUE 350) VIAL IV ONE (19:15)
[2023-08-28 19:18] LABS: BILIRUBIN,TOTAL 0.3 MG/DL (0.1-1.0); CALCIUM 9.2 MG/DL (8.5-10.1); CARBON DIOXIDE 24 MMOL/L (21-32); CHLORIDE 102 MMOL/L (98-107); LIPASE 24 U/L (8-78); POTASSIUM 3.6 MMOL/L (3.6-5.0); SODIUM 138 MMOL/L (135-145); TOTAL PROTEIN 6.9 GM/DL (6.4-8.2)
[2023-08-28 19:25] LABS: ALANINE AMINOTRANSFERASE 14 U/L (0-55); ALBUMIN 3.8 GM/DL (3.2-4.5); ALKALINE PHOSPHATASE 78 U/L (40-136); BUN/CREATININE RATIO 13; CREATININE SERUM 0.71 MG/DL (0.60-1.30); GFR ESTIMATED 112; GLUCOSE 110 MG/DL (70-105)
--- NOTE | 2023-08-28 19:33 | Diagnostic Imaging Report ---
PROCEDURE: CT abdomen and pelvis with contrast. TECHNIQUE: Multiple contiguous axial images were obtained through the abdomen and pelvis after administration of intravenous contrast. Auto Exposure Controls were utilized during the CT exam to meet ALARA standards for radiation dose reduction. All CT scans use one or more of the following dose optimizing techniques: automated exposure control, MA and/or KvP adjustment based on patient size and exam type or iterative reconstruction. INDICATION: Left lower quadrant pain Lung bases are clear. Liver appears normal. Gallbladder surgically absent. The pancreas appears normal. Spleen is not enlarged. GE junction is unremarkable. Adrenals are normal. Kidneys appear normal. There is large amount of food residue in the stomach. Small bowel is not dilated. The appendix is normal. There is diverticulosis of the colon with some mural thickening in the sigmoid colon could be due to diverticulitis. IMPRESSION: Colonic diverticulosis with suspected sigmoid diverticulitis. There is no diverticular abscess or perforation. Dictated by: Dictated on workstation # [id number]
[2023-08-28 20:02] VITALS: BP 112/72
== END 2023-08-28 20:04 | disposition home or self-care (01) ==
LOC: EDUNIT# 18:25 → ER FS 18:27
DX: K57.32 Diverticulitis of large intestine without perforation or abscess without bleeding (principal); K57.30 Diverticulosis of large intestine without perforation or abscess without bleeding; F17.210 Nicotine dependence, cigarettes, uncomplicated; Z20.822 Contact with and (suspected) exposure to COVID-19
CPT/HCPCS: 36415; 74177; 80053; 80306; 81000; 83690; 84484; 85025; 87636; Q9967